=== PATIENT | male | born 1955 | race Caucasian/White ===

== ENCOUNTER 2017-11-28 10:40 | Emergency (ER) | payer OTHER, SELFPAY ==
[2017-11-28 10:41] VITALS: BP 156/88; PULSE 88; RESP 16; TEMP 36.5; O2SAT 99; BMI 35.2
--- NOTE | 2017-11-28 10:54 | RAD_ITS ---
STUDY: X-RAY LEFT FOOT, FIRST TOE REASON FOR EXAM: Male, 62 years old. Infection big toe 2 days TECHNIQUE: 3 view(s) of the toe were obtained. COMPARISON: None. FINDINGS: There is a well-corticated but slightly irregular appearance of the distal metatarsal on the medial side. There is minimal arthrosis of the metatarsophalangeal (M.T.P.) joint. Normal interphalangeal joints. Normal phalanges and interphalangeal joints. There is soft tissue swelling about the first digit. RAD/Toe(s) Min 2 Views IMPRESSION: Degenerative appearance of the distal metatarsal on the medial side on the oblique view. Mild soft tissue swelling no definitive evidence of obvious gas formation in the toe. No visualized bony erosion within the distal phalanges. It should be noted that it may take 10-14 days for radiographic bony manifestation of osteomyelitis to be seen. Electronically Signed: Adelaide Kate MD at 11:28 EDT Tel , Service support ,
[2017-11-28] MEDS: Smz/Tmp Ds Tablet 2 TABLET PO (11:06)
[2017-11-28] MEDS: Cephalexin 250 MG Capsule 500 MG PO (11:06)
--- NOTE | 2017-11-28 11:17 | ED.VISSUMM ---
- ER Visit Summary Date of Service: 11/28/17 Chief Complaint: [Left great toe infection] History of Present Illness: The patient is a 62 M [presents the emergency department with complaint of redness, and swelling to his left great toe. Patient states that he thinks he overdid it working 2 days ago as he was working in the yard and cut down 3 trees. Patient started noticing discomfort to his left great toe and thought that it looked infected so he removed his toenail with some clippers that he dipped and peroxide. Patient states that he also had drank some [place] Mos[place]eda to help him tolerate the discomfort. Patient subsequently used a sewing needle to puncture areas in his toe where he thought there was pus and was able to express some purulent debris. Patient denies any fevers. Patient does see a shade hanger as he does have orthotics.] Physical Examination: [HEENT-PERRLA, EOMI. Cranial nerves II through XII grossly intact. TMs clear. Mucous membranes moist. No adenopathy. Cardiovascular-regular rate and rhythm without murmur or ectopy Lungs-clear to auscultation, chest wall stable without crepitus or subcu emphysema Abdomen-normoactive bowel sounds, soft, nontender, no rebound or rigidity, no peritoneal signs. Extremities-intact ?4, normal range of motion, normal pulses, atraumatic]. Left foot-patient has erythema to the left great toe diffusely. Patient has what appears to be a blood blister on the lateral aspect of the pulp of the digit where he had a small puncture were patient try to drain the fluid from this area and he states he only got some thick red drainage. Patient has some mild lymphangitic streaking to the dorsum of the first metatarsal area of the foot. Test Results: [X-rays of the left great toe obtained and there is no evidence for fracture or evidence for osteomyelitis. No gas noted in the soft tissues.] Emergency Department Course and Treatment: [Patient was given Keflex and Bactrim]. Adacel tetanus booster also given. Treatment Plan: [Patient will be started on Keflex and Bactrim and he did not anything for pain. Patient advised to follow-up with his shade hanger within the next 2-3 days for wound check. Disposition: [Discharged home in stable condition.] Impression: [Cellulitis left great toe/foot] This note was generated with Dragon dictation software. It may contain incorrect words, spelling, and punctuation that were not noted in review of the chart prior to signing ED Disposition - Plan for ED Patient: Chief Complaint: Lower Extremity Injury Referrals: Stephen Gomez DO [Primary Care Provider] -
--- NOTE | 2017-11-28 11:22 | ED.DCSUM_ITS ---
- ER Visit Summary Date of Service: 11/28/17 Chief Complaint: [Left great toe infection] History of Present Illness: The patient is a 62 M [presents the emergency department with complaint of redness, and swelling to his left great toe. Patient states that he thinks he overdid it working 2 days ago as he was working in the yard and cut down 3 trees. Patient started noticing discomfort to his left great toe and thought that it looked infected so he removed his toenail with some clippers that he dipped and peroxide. Patient states that he also had drank some [place] Mos[place]eda to help him tolerate the discomfort. Patient subsequently used a sewing needle to puncture areas in his toe where he thought there was pus and was able to express some purulent debris. Patient denies any fevers. Patient does see a insert operator as he does have orthotics.] Physical Examination: [HEENT-PERRLA, EOMI. Cranial nerves II through XII grossly intact. TMs clear. Mucous membranes moist. No adenopathy. Cardiovascular-regular rate and rhythm without murmur or ectopy Lungs-clear to auscultation, chest wall stable without crepitus or subcu emphysema Abdomen-normoactive bowel sounds, soft, nontender, no rebound or rigidity, no peritoneal signs. Extremities-intact ?4, normal range of motion, normal pulses, atraumatic]. Left foot-patient has erythema to the left great toe diffusely. Patient has what appears to be a blood blister on the lateral aspect of the pulp of the digit where he had a small puncture were patient try to drain the fluid from this area and he states he only got some thick red drainage. Patient has some mild lymphangitic streaking to the dorsum of the first metatarsal area of the foot. Test Results: [X-rays of the left great toe obtained and there is no evidence for fracture or evidence for osteomyelitis. No gas noted in the soft tissues.] Emergency Department Course and Treatment: [Patient was given Keflex and Bactrim ]. Adacel tetanus booster also given. Treatment Plan: [Patient will be started on Keflex and Bactrim and he did not anything for pain. Patient advised to follow-up with his insert operator within the next 2-3 days for wound check. Disposition: [Discharged home in stable condition.] Impression: [Cellulitis left great toe/foot] This note was generated with Dragon dictation software. It may contain incorrect words, spelling, and punctuation that were not noted in review of the chart prior to signing ED Disposition - Plan for ED Patient: Chief Complaint: Lower Extremity Injury Referrals: Stephen Gomez DO [Primary Care Provider] -
--- NOTE | 2017-11-28 11:22 | ED.DEP ---
ED Disposition - Plan for ED Patient: Chief Complaint: Lower Extremity Injury Instructions: ED Infec Skin Cellulitis Prescriptions: Cephalexin [Keflex] 500 mg PO Q6 #40 cap Smz/Tmp Ds [Bactrim Ds] 2 tab PO BID #28 tab Referrals: Stephen Gomez DO [Primary Care Provider] - Additional Instructions: See your Partner Integration Planner in 2-3 days for a wound check
[2017-11-28] MEDS: Diphth,Pertuss(Acell),Tet Vac 0.5 ML Vial IM (11:37)
== END 2017-11-28 11:54 | disposition home or self-care (01) ==
LOC: ED 11:07
PROVIDERS: Emergency Provider Emergency Medicine; Family Provider Preventive Medicine Occupational Medicine; PCP Preventive Medicine Occupational Medicine
DX: L03.032 Cellulitis of left toe (principal); Z23 Encounter for immunization
CPT/HCPCS: 73660; 90471; 90715; 99282

== ENCOUNTER 2018-04-22 22:40 | Emergency (ER) | payer OTHER, SELFPAY ==
[2018-04-22 22:41] VITALS: BP 128/74; PULSE 69; RESP 15; TEMP 37.1; BMI 35.2
--- NOTE | 2018-04-22 23:17 | ED.VISSUMM ---
- ER Visit Summary Date of Service: 04/22/18 Chief Complaint: [] Left foot and toe infection History of Present Illness: The patient is a 62 M resents with toe infection in the left. He stated he got an abrasion 6 days ago because his boots were too tight. He stated that this evening he noticed some redness on the top of his foot and in the toe. He had not had any prior. He has been using hydrogen peroxide. He ripped the superficial skin off the ulcer tonight and there was some mild clear drainage. Comes in for further evaluation. Does not have any significant pain. Physical Examination: [] Vital signs reviewed General: Well-nourished well-developed Head: Normocephalic atraumatic Eyes: Pupils equal round and reactive to light extraocular movements intact ENT: TMs clear no hemotympanum no trauma Neck: Nontender full range of motion Cardiovascular: Regular rate rhythm no murmurs normal S1-S2 Respiratory: No distress clear to auscultation bilaterally chest nontender Abdomen: Soft nontender nondistended normal bowel sounds no masses Back: Nontender no CVA tenderness Extremities: She has a 0.5 x 0.5 cm superficial ulceration/abrasion on his distal left toe on the top second. He has some mild erythema proximally and laterally of the toe. He has a cellulitic area over the third metatarsal only coming up to the proximal foot. There is no lymphangitic streaking up his leg. No significant tenderness. There is no fluid drainage as it is dry and hard Neuro alert oriented cranial nerves II through XII intact normal strength sensation reflexes Test Results: [] Emergency Department Course and Treatment: [] This time I think the patient has an infected superficial ulceration to his toe. I do not think there is bony involvement. Given Bactrim and Keflex. I do not think he needs IV antibiotics. Understands it could get slightly worse before better. I do not think he needs imaging. He will return if this worsens despite treatment he will use topical Neosporin and keep it clean and I do not feel it is deep or an osteomyelitis that would warrant imaging Treatment Plan: [] Disposition: [] Impression: [] Left toe cellulitis Left foot cellulitis Left toe superficial ulceration This note was generated with [email or web address] software. It may contain incorrect words, spelling, and punctuation that were not noted in review of the chart prior to signing ED Disposition - Plan for ED Patient: Chief Complaint: Lower Extremity Injury Referrals: Stephen Gomez DO [Primary Care Provider] -
--- NOTE | 2018-04-22 23:21 | ED.DEP ---
ED Disposition - Plan for ED Patient: Disposition: Home or Assisted Living Chief Complaint: Lower Extremity Injury Instructions: Discharge Instructions for Cellulitis Prescriptions: Cephalexin [Keflex] 500 mg PO Q6 #40 cap Smz/Tmp Ds [Bactrim Ds] 1 tab PO BID #20 tab Referrals: Stephen Gomez DO [Primary Care Provider] -
[2018-04-22] MEDS: Cephalexin 250 MG Capsule 500 MG PO (23:22)
[2018-04-22] MEDS: Smz/Tmp Ds Tablet 2 TABLET PO (23:22)
[2018-04-22 23:36] VITALS: RESP 20
== END 2018-04-22 23:37 | disposition home or self-care (01) ==
PROVIDERS: Emergency Provider Emergency Medicine; Family Provider Preventive Medicine Occupational Medicine; PCP Preventive Medicine Occupational Medicine
DX: L03.032 Cellulitis of left toe (principal); L03.116 Cellulitis of left lower limb; L97.529 Non-pressure chronic ulcer of other part of left foot with unspecified severity; E66.9 Obesity, unspecified
CPT/HCPCS: 99283

== ENCOUNTER 2018-07-22 09:24 | Outpatient (RCR) | payer OTHER, SELFPAY ==
[2018-07-22 09:50] VITALS: BP 145/86; PULSE 69; RESP 16; TEMP 36.6; BMI 36.6
--- NOTE | 2018-07-22 11:03 | PCM.WC.PN ---
(1) Superficial abrasion Status: Acute Current Visit: Yes Code(s): T14.8XXA - Other injury of unspecified body region, initial encounter (2) Neuropathy of both feet Status: Acute Current Visit: Yes Code(s): G57.93 - Unspecified mononeuropathy of bilateral lower limbs Type of Wound Chief Complaint: Follow-up on his abrasion to right second toe History of Wound: 62-year-old white male who apparently traumatized his right second toe with his steel toe work boot in March. Patient states it was much bigger and deeper and has seen a marketing ambassador a foot doctor and his family doctor. He has been using Silvadene cream on it. It is now a superficial opening almost like a skin tear. Patient also complains that he has no feeling in his feet he is a non-smoker he states in 1976 He Did Walk 1 mile in the last snowstorm and actually his eyelids had frozen shut when his car broke down. He feels he has had some rust bite to the feet and toes and his past. 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 Progress of Wound: Today the wound is very small and superficial. Should heal quickly. We will apply for vascular studies and he may need some EMG studies also. - Physical Exam Vital Signs Temp Pulse Resp BP 97.8 F 69 16 145/86 H 07/22/18 09:50 07/22/18 09:50 07/22/18 09:50 07/22/18 09:50 General: Oriented x3, Cooperative, Well developed HEENT: Atraumatic, PERRLA Oral: Moist Mucosa Neck: Supple, No JVD Lungs: Clear to auscultation, Normal air movement Cardiovascular: Regular rate, Regular Rhythm Abdomen: Bowel Sounds Present, Soft, Non Tender, No Hepato-splenomegaly Extremities: No clubbing, No edema Skin: No rashes, Ulcer/ Wound - Superficial wound on the right second toe dorsal Wound Measurements and Assessment WC - Nurse 1 - General Ulcer Measurement Start: 07/22/18 09:50 Freq: Status: Active Protocol: Activity Type Activity Date Activity User E-Sign Co-Sign Detail Recorded Client Recorded Date Recorded By Document 07/22/18 09:50 [id number] 07/22/18 09:59 07/22/18 09:50 Wound Center Nurse 1 [Ulcer Assessment] #1 LEFT 2ND TOE -Combined with other wound No -Current Size (cm) - Length 0.1 -Current Size (cm) - Width 0.1 -Current Size (cm) - Depth 0.1 -Total Square Cm 0.01 -Date of Last Picture (Recall this 07/22/18 field) -Photo Taken Yes -Epithelialization None Present -Tunneling No -Undermining/Tunneling No -Circular Undermining No -Necrosis Amt Large (67-100%) -Necrotic Tissue Type Eschar -Temperature (Rocio-wound Skin No Abnormality Appearance) (Pt Warm) -Tenderness on Palpation (Rocio-wound No Skin Appearance) -Ulcer Cleansing Rinsed/ Irrigated with Saline -Foul Odor after Cleansing No -Anesthetic Used 5% Lidocaine Gel [Edema Assessment] -Lower Limb Edema Present No -Right Calf (cm) 45 -Right Ankle (cm) 24 -Left Calf (cm) 45.5 -Left Ankle (cm) 23.5 WC - Nurse 2 - General Ulcer CM Notes Start: 07/22/18 09:50 Freq: Status: Active Protocol: Activity Type Activity Date Activity User E-Sign Co-Sign Detail Recorded Client Recorded Date Recorded By Document 07/22/18 10:10 MW [id number] 07/22/18 10:16 MW 07/22/18 10:10 Wound Center Nurse 2 [Procedure/Treatment] #1 LEFT 2ND TOE -Time 10:11 -Correct Patient Yes -Correct Side, Site, Position Yes -Correct Procedure Yes -Procedure Performed No -Post Debridement Size (cm) - Length 0.5 -Post Debridement Size (cm) - Width 0.3 -Post Debridement Size (cm) - Depth 0.1 -Total Square Cm 0.15 -Wound/Ulcer Outcome Not Healed [See Physician Procedure note for Specifics] Pain Scale: 0-10 Numeric [Pain] -Is Patient Pain Free? Yes Musculoskeletal: No Tenderness to Palpation of Joints or Extremities Lymphatic: No Cervical, Supraclavicular, or Inguinal Adenopathy Neurological: Cranial nerves II-XII grossly intact, Neuro grossly intact Psych/Mental Status: Normal Affect, Appropriate Debridement Note Post-Debridement Measurements/Treatment WC - Nurse 2 - General Ulcer CM Notes Start: 07/22/18 09:50 Freq: Status: Active Protocol: Activity Type Activity Date Activity User E-Sign Co-Sign Detail Recorded Client Recorded Date Recorded By Document 07/22/18 10:10 MW [id number] 07/22/18 10:16 MW 07/22/18 10:10 Wound Center Nurse 2 #1 LEFT 2ND TOE -Time 10:11 -Correct Patient Yes -Correct Side, Site, Position Yes -Correct Procedure Yes -Procedure Performed No -Post Debridement Size (cm) - Length 0.5 -Post Debridement Size (cm) - Width 0.3 -Post Debridement Size (cm) - Depth 0.1 -Total Square Cm 0.15 -Wound/Ulcer Outcome Not Healed Pain Scale: 0-10 Numeric Is Patient Pain Free? Yes Wound debrided: Right second toe Type of Debridement: Selective debridement Anesthesia Used: 5% Lidocaine Gel Depth: Down to and including healthy tissue Percentage of wound debrided: 100 Instrument Used: 3mm curette Tissue Removed: Fibrin Amount of bleeding with debridement: Mild Bleeding Controlled with: Pressure Patient tolerated procedure well Assessment/Plan Active Problems Superficial abrasion (Acute) Neuropathy of both feet (Acute) Assessment: Bilateral neuropathy to feet. Superficial abrasion to the right second toe. PAD. Edema feet Plan: Apply Adaptic to the right second toe cover with gauze. Obtain arterial brachial studies and venous studies. Follow-up in 3 weeks
--- NOTE | 2018-07-22 11:08 | PN.PCM_ITS ---
(1) Superficial abrasion Status: Acute Current Visit: Yes Code(s): T14.8XXA - Other injury of u nspecified body region, initial encounter (2) Neuropathy of both feet Status: Acute Current Visit: Yes Code(s): G57.93 - Unspecified mononeuropathy of bilateral lower limbs Type of Wound Chief Complaint: Follow-up on his abrasion to right second toe History of Wound: 62-year-old white male who apparently traumatized his right second toe with his steel toe work boot in March. Patient states it was much bigger and deeper and has seen a pilling machine operator a foot doctor and his family doctor. He has been using Silvadene cream on it. It is now a superficial opening almost like a skin tear. Patient also complains that he has no feeling in his feet he is a non-smoker he states in 1976 He Did Walk 1 mile in the last snowstorm and actually his eyelids had frozen shut when his car broke down. He feels he has had some rust bite to the feet and toes and his past. 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 Progress of Wound: Today the wound is very small and superficial. Should heal quickly. We will apply for vascular studies and he may need some EMG studies also. - Physical Exam Vital Signs Temp Pulse Resp BP 97.8 F 69 16 145/86 H 07/22/18 09:50 07/22/18 09:50 07/22/18 09:50 07/22/18 09:50 General: Oriented x3, Cooperative, Well developed HEENT: Atraumatic, PERRLA Oral: Moist Mucosa Neck: Supple, No JVD Lungs: Clear to auscultation, Normal air movement Cardiovascular: Regular rate, Regular Rhythm Abdomen: Bowel Sounds Present, Soft, Non Tender, No Hepato-splenomegaly Extremities: No clubbing, No edema Skin: No rashes, Ulcer/ Wound - Superficial wound on the right second toe dorsal Wound Measurements and Assessment WC - Nurse 1 - General Ulcer Measurement Start: 07/22/18 09:50 Freq: Status: Active Protocol: Activity Type Activity Date Activity User E-Sign Co-Sign Detail Recorded Client Recorded Date Recorded By Document 07/22/18 09:50 [id number] 07/22/18 09:59 07/22/18 09:50 Wound Center Nurse 1 [Ulcer Assessment] #1 LEFT 2ND TOE -Combined with other wound No -Current Size (cm) - Length 0.1 -Current Size (cm) - Width 0.1 -Current Size (cm) - Depth 0.1 -Total Square Cm 0.01 -Date of Last Picture (Recall this 07/22/18 field) -Photo Taken Yes -Epithelialization None Present -Tunneling No -Undermining/Tunneling No -Circular Undermining No -Necrosis Amt Large (67-100%) -Necrotic Tissue Type Eschar -Temperature (Rocio-wound Skin No Abnormality Appearance) (Pt Warm) -Tenderness on Palpation (Rocio-wound No Skin Appearance) -Ulcer Cleansing Rinsed/ Irrigated with Saline -Foul Odor after Cleansing No -Anesthetic Used 5% Lidocaine Gel [Edema Assessment] -Lower Limb Edema Present No -Right Calf (cm) 45 -Right Ankle (cm) 24 -Left Calf (cm) 45.5 -Left Ankle (cm) 23.5 WC - Nurse 2 - General Ulcer CM Notes Start: 07/22/18 09:50 Freq: Status: Active Protocol: Activity Type Activity Date Activity User E-Sign Co-Sign Detail Recorded Client Recorded Date Recorded By Document 07/22/18 10:10 MW [id number] 07/22/18 10:16 MW 07/22/18 10:10 Wound Center Nurse 2 [Procedure/Treatment] #1 LEFT 2ND TOE -Time 10:11 -Correct Patient Yes -Correct Side, Site, Position Yes -Correct Procedure Yes -Procedure Performed No -Post Debridement Size (cm) - Length 0.5 -Post Debridement Size (cm) - Width 0.3 -Post Debridement Size (cm) - Depth 0.1 -Total Square Cm 0.15 -Wound/Ulcer Outcome Not Healed [See Physician Procedure note for Specifics] Pain Scale: 0-10 Numeric [Pain] -Is Patient Pain Free? Yes Musculoskeletal: No Tenderness to Palpation of Joints or Extremities Lymphatic: No Cervical, Supraclavicular, or Inguinal Adenopathy Neurological: Cranial nerves II-XII grossly intact, Neuro grossly intact Psych/Mental Status: Normal Affect, Appropriate Debridement Note Post-Debridement Measurements/Treatment WC - Nurse 2 - General Ulcer CM Notes Start: 07/22/18 09:50 Freq: Status: Active Protocol: Activity Type Activity Date Activity User E-Sign Co-Sign Detail Recorded Client Recorded Date Recorded By Document 07/22/18 10:10 MW [id number] 07/22/18 10:16 MW 07/22/18 10:10 Wound Center Nurse 2 #1 LEFT 2ND TOE -Time 10:11 -Correct Patient Yes -Correct Side, Site, Position Yes -Correct Procedure Yes -Procedure Performed No -Post Debridement Size (cm) - Length 0.5 -Post Debridement Size (cm) - Width 0.3 -Post Debridement Size (cm) - Depth 0.1 -Total Square Cm 0.15 -Wound/Ulcer Outcome Not Healed Pain Scale: 0-10 Numeric Is Patient Pain Free? Yes Wound debrided: Right second toe Type of Debridement: Selective debridement Anesthesia Used: 5% Lidocaine Gel Depth: Down to and including healthy tissue Percentage of wound debrided: 100 Instrument Used: 3mm curette Tissue Removed: Fibrin Amount of bleeding with debridement: Mild Bleeding Controlled with: Pressure Patient tolerated procedure well Assessment/Plan Active Problems Superficial abrasion (Acute) Neuropathy of both feet (Acute) Assessment: Bilateral neuropathy to feet. Superficial abrasion to the right second toe. PAD. Edema feet Plan: Apply Adaptic to the right second toe cover with gauze. Obtain arterial brachial studies and venous studies. Follow-up in 3 weeks
[2018-07-22 12:06] LABS: Erythrocyte Sedimentation Rate 15 mm/hr (0-20)
[2018-07-22 12:11] LABS: Absolute Lymphocyte Count 1.23 X10^3/ul (0.83-4.51); Absolute Neutrophil Count 3.7 X10^3/uL (2.0-7.7); Basophil# 0.01 X10^3/uL; Basophil% 0.2 % (0-1); Eosinophil# 0.11 X10^3/uL; Hematocrit 45.8 % (40-54); Hemoglobin 15.6 g/dl (13.0-16.5); Lymphocyte # 1.23 X10^3/ul (4.0); Lymphocyte % 22.7 % (19-41); Mean Corp Hgb Conc 34.1 g/gl (32-36); Mean Corpuscular Hgb 31.6 pg (27.0-32.0); Mean Corpuscular Volume 92.7 fL (80-94); Mean Platelet Vol. 11.6 fl (6.2-12.0); Monocyte# 0.38 X10^3/uL; Neutrophil # 3.68 X10^3/uL (2.7-7.7); Neutrophil % 67.9 % (47-70); Platelet Count 216 K/mm3 (150-450); RBC Distribution Width CV 12.9 % (11.6-14.6); Red Blood Count 4.94 M/mm3 (4.6-6.2); White Blood Count 5.4 K/mm3 (4.4-11.0)
[2018-07-22 12:15] LABS: POSITIVE COUNT NO; POSITIVE DIFFERENTIAL NO; POSITIVE MORPHOLOGY NO
[2018-07-22 12:32] LABS: CRP < 2.90 mg/L (0.0-3.0); Prealbumin 22.5 mg/dL (20.0-40.0); Rheumatoid Factor < 10.0 IU/mL (<15); Thyroid Stim Hormone (TSH) 1.91 uIU/mL (0.358-3.74)
[2018-07-25 12:39] LABS: ANTINUCLEAR ANTIBODIES DIRECT Negative (Negative)
== END 2018-08-01 23:59 ==
LOC: WC 09:24
PROVIDERS: Family Provider Preventive Medicine Occupational Medicine; PCP Preventive Medicine Occupational Medicine; Visit Provider Nurse Practitioner
DX: S90.414A Abrasion, right lesser toe(s), initial encounter (principal); X58.XXXA Exposure to other specified factors, initial encounter; G57.93 Unspecified mononeuropathy of bilateral lower limbs; I73.9 Peripheral vascular disease, unspecified; R60.0 Localized edema
CPT/HCPCS: 84134; 84443; 85025; 85652; 86038; 86140; 86431; 99213; G0463

== ENCOUNTER 2018-08-05 07:51 | Outpatient (RCR) | payer OTHER, SELFPAY ==
[2018-08-02 01:37] VITALS: BP 145/86; PULSE 69; RESP 16; TEMP 36.6
--- NOTE | 2018-08-05 07:55 | VDLE_ITS ---
Reason For Study: PAD RIGHT LEFT CFV is compressible, spontaneous, phasic, CFV is compressible, spontaneous, phasic, competent and demonstrates normal competent, and demonstrates normal augmentation. augmentation. FV is compressible, spontaneous, phasic, FV is compressible, spontaneous, phasic, competent and demonstrates normal competent and demonstrates normal augmentation. augmentation. POP V is compressible, spontaneous, phasic, POP V is compressible, spontaneous, phasic, competent and demonstrates normal competent and demonstrates normal augmentation. augmentation. T/P Trunk is compressible. T/P Trunk is compressible. PTV is compressible. PTV is compressible. RT PerV is compressible. LT PerV is compressible. Rt GSV at SFJ is compressible and competent. Left GSV at SFJ is compressible and RT GSV above the knee is compressible and competent. competent. Left GSV above the knee is compressible and RT Accessory V above the knee are INCOMPETENT competent. for greater than .5 seconds. Left GSV below the knee si cmpressible and Rt GSV below the knee is INCOMPETENT for competent. greater than .5 seconds. Left SSV is compressible and competent. RT SSV is compressible and competent. Procedure Exam performed in department. A preliminary report was called and/or faxed to [facility]. Interpretation Summary Deep veins of the lower extremities are bilaterally patent and compressible segmentally. There is no evidence of deep vein thrombosis on either side. Valvular competence appears intact within the proximal deep venous systems bilaterally. The greater saphenous veins appear bilaterally patent and compressible segmentally. Sapheno-femoral junctions are bilaterally competent . The right greater saphenous vein appears competent above the knee. The right greater saphenous vein appears incompetent below the knee. The left greater saphenous vein appears segmentally competent. Small saphenous veins are patent and competent bilaterally. The right accessory saphenous vein is patent and incompetent. Ordering Physician: Radha Hollis Referring Physician: ROHITH DIAZ Performed By: Thais Cordon, KATELYN, RVT
--- NOTE | 2018-08-05 07:55 | ART_ITS ---
Reason For Study: PAD Procedure A bilateral lower extremity continuous wave Doppler with analog waveform analysis,segmental pressures,and ankle brachial indexes without exercise. Left Segmental Pressures Left brachial= 124mmHg. Left posterior tibial artery = 157mmHg. Left dorsalis pedis artery = 156mmHg. Left digit = 110 mmHg. The left posterior tibial artery waveforms are triphasic. The left dorsalis pedis waveforms are biphasic. Right Segmental Pressures Right brachial= 129mmHg. Right posterior tibial artery = 157mmHg. Right dorsalis pedis artery = 155mmHg. Right digit = 90 mmHg. The right dorsalis pedis waveforms are triphasic. The right posterior tibial artery waveforms are triphasic. Indices The right ankle brachial index by the dorsalis pedis is 1.2. The right ankle brachial index by the posterior tibial artery is 1.22. The right digital-brachial index is .7. The left ankle brachial index by the dorsalis pedis is 1.21. The left ankle brachial index by the posterior tibial artery is 1.22. The left digital-brachial index is .85. Interpretation Summary Triphasic waveforms are noted at ankle level on the right. Triphasic and biphasic waveforms are noted at ankle level on the left. Resting ankle-brachial indices appear bilaterally normal. Digital- brachial indices are normal bilaterally. There is no evidence of significant arterial occlusive disease on either side. Ordering Physician: Radha Hollis Referring Physician: REGINO DIAZ Performed By: JESSICA MONTGOMERY RDCS
[2018-08-05 09:44] VITALS: BP 131/77; PULSE 72; RESP 18; TEMP 37.1; O2SAT 97; BMI 36.6
--- NOTE | 2018-08-05 10:40 | PCM.WC.PN ---
(1) Neuropathy of both feet Status: Acute Current Visit: Yes Code(s): G57.93 - Unspecified mononeuropathy of bilateral lower limbs (2) Superficial abrasion Status: Acute Current Visit: Yes Code(s): T14.8XXA - Other injury of unspecified body region, initial encounter Type of Wound Chief Complaint: Follow-up on his abrasion to right second toe History of Wound: 62-year-old white male who apparently traumatized his right second toe with his steel toe work boot in March. Patient states it was much bigger and deeper and has seen a outer diameter technician a foot doctor and his family doctor. He has been using Silvadene cream on it. It is now a superficial opening almost like a skin tear. Patient also complains that he has no feeling in his feet he is a non-smoker he states in 1976 He Did Walk 1 mile in the last snowstorm and actually his eyelids had frozen shut when his car broke down. He feels he has had some rust bite to the feet and toes and his past. 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 Progress of Wound: Today the wound is healed discharge from the wound center . The lab work we obtained for autoimmune disorders is all negative and patient needs to buy extrawide shoes he might have to have them custom made and I think that his neuropathy and his toenail fungus and his calluses. - Physical Exam Vital Signs Temp Pulse Resp BP Pulse Ox 98.7 F 72 18 131/77 H 97 08/05/18 09:44 08/05/18 09:44 08/05/18 09:44 08/05/18 09:44 08/05/18 09:44 General: Oriented x3, Cooperative, Well developed HEENT: Atraumatic, PERRLA Oral: Moist Mucosa Neck: Supple, No JVD Lungs: Clear to auscultation, Normal air movement Cardiovascular: Regular rate, Regular Rhythm Abdomen: Bowel Sounds Present, Soft, Non Tender, No Hepato-splenomegaly Extremities: No clubbing, No edema Skin: Ulcer/ Wound - Left second toe ulcer Wound Measurements and Assessment WC - Nurse 1 - General Ulcer Measurement Start: 08/05/18 09:44 Freq: Status: Active Protocol: Activity Type Activity Date Activity User E-Sign Co-Sign Detail Recorded Client Recorded Date Recorded By Document 08/05/18 09:44 MT [id number] 08/05/18 09:46 MO 08/05/18 09:44 Wound Center Nurse 1 [Ulcer Assessment] #1 LEFT 2ND TOE -Current Size (cm) - Length 0.9 -Current Size (cm) - Width 0.6 -Current Size (cm) - Depth 0.1 -Total Square Cm 0.54 -Photo Taken No -Tunneling No -Undermining/Tunneling No -Circular Undermining No -Exudate Amt None Present (0 %) -Wound Margin Flat & Intact -Texture (Rocio-wound Skin Appearance) Assessed Callus -Moisture (Rocio-wound Skin Appearance Assessed ) -Color (Rocio-wound Skin Appearance) Assessed -Temperature (Rocio-wound Skin No Abnormality Appearance) (Pt Warm) -Tenderness on Palpation (Rocio-wound No Skin Appearance) -Ulcer Cleansing Wound Cleanser -Foul Odor after Cleansing No -Anesthetic Used 4% Lidocaine Solution [Edema Assessment] -Right Calf (cm) 45 -Right Ankle (cm) 23.3 WC - Nurse 2 - General Ulcer CM Notes Start: 08/05/18 09:44 Freq: Status: Active Protocol: Activity Type Activity Date Activity User E-Sign Co-Sign Detail Recorded Client Recorded Date Recorded By Document 08/05/18 09:47 MW [id number] 08/05/18 09:49 MW 08/05/18 09:47 Wound Center Nurse 2 [Procedure/Treatment] #1 LEFT 2ND TOE -Time 09:48 -Correct Patient Yes -Correct Side, Site, Position Yes -Correct Procedure Yes -Procedure Performed No -Post Debridement Size (cm) - Length 0 -Post Debridement Size (cm) - Width 0 -Post Debridement Size (cm) - Depth 0 -Total Square Cm 0 -Wound/Ulcer Outcome Healed- Epithelialized -Ulcer Cleansing Not Cleansed -Foul Odor after Cleansing No -Bleeding Controlled with NA -Offloading No [See Physician Procedure note for Specifics] Pain Scale: 0-10 Numeric [Pain] -Is Patient Pain Free? Yes Musculoskeletal: No Tenderness to Palpation of Joints or Extremities Lymphatic: No Cervical, Supraclavicular, or Inguinal Adenopathy Neurological: Cranial nerves II-XII grossly intact, Neuro grossly intact Psych/Mental Status: Normal Affect, Appropriate Debridement Note Post-Debridement Measurements/Treatment WC - Nurse 2 - General Ulcer CM Notes Start: 08/05/18 09:44 Freq: Status: Active Protocol: Activity Type Activity Date Activity User E-Sign Co-Sign Detail Recorded Client Recorded Date Recorded By Document 08/05/18 09:47 MW [id number] 08/05/18 09:49 MW 08/05/18 09:47 Wound Center Nurse 2 #1 LEFT 2ND TOE -Time 09:48 -Correct Patient Yes -Correct Side, Site, Position Yes -Correct Procedure Yes -Procedure Performed No -Post Debridement Size (cm) - Length 0 -Post Debridement Size (cm) - Width 0 -Post Debridement Size (cm) - Depth 0 -Total Square Cm 0 -Wound/Ulcer Outcome Healed- Epithelialized -Ulcer Cleansing Not Cleansed -Foul Odor after Cleansing No -Bleeding Controlled with NA -Offloading No Pain Scale: 0-10 Numeric Is Patient Pain Free? Yes No debridement was completed today Assessment/Plan Active Problems Superficial abrasion (Acute) Neuropathy of both feet (Acute) Assessment: Bilateral neuropathy to feet. Superficial abrasion to the right second toe resolved. PAD. Edema feet Plan: Discharge from the wound center follow-up as needed
== END 2018-09-01 23:59 ==
LOC: WC 07:51
PROVIDERS: Family Provider Preventive Medicine Occupational Medicine; PCP Preventive Medicine Occupational Medicine; Referring Provider Nurse Practitioner; Visit Provider Nurse Practitioner
DX: R60.0 Localized edema (principal); G57.93 Unspecified mononeuropathy of bilateral lower limbs; I73.9 Peripheral vascular disease, unspecified; Z09 Encounter for follow-up examination after completed treatment for conditions other than malignant neoplasm
CPT/HCPCS: 93923; 93970; 99212; G0463

== ENCOUNTER → 2019-06-15 10:43 | Outpatient (CLI) | payer OTHER, SELFPAY ==
--- NOTE | 2019-06-15 10:47 | ART_ITS ---
Reason For Study: PAD Procedure A bilateral lower extremity continuous wave Doppler with analog waveform analysis,segmental pressures,and ankle brachial indexes without exercise. Left Segmental Pressures Left brachial= 148mmHg. Left posterior tibial artery = 162mmHg. Left dorsalis pedis artery = 135mmHg. Left digit = 26 mmHg. The left dorsalis pedis waveforms are triphasic. The left posterior tibial artery waveforms are triphasic. Right Segmental Pressures Right brachial= 147mmHg. Right posterior tibial artery = 176mmHg. Right dorsalis pedis artery = 155mmHg. Right digit = 23 mmHg. The right dorsalis pedis waveforms are triphasic. The right posterior tibial artery waveforms are triphasic. Indices The right ankle brachial index by the dorsalis pedis is 1.05. The right ankle brachial index by the posterior tibial artery is 1.19. The right digital-brachial index is 0.16. The left ankle brachial index by the dorsalis pedis is 0.91. The left ankle brachial index by the posterior tibial artery is 1.09. The left digital-brachial index is 0.18. Interpretation Summary Resting ankle-brachial indices appear bilaterally normal. Abnormal digital brachial indices bilaterally consistent with distal small vessel disease or temperature effect. Clinical correlation would be appropriate. Ordering Physician: Diogenes Buck Referring Physician: Stephen Gomez Performed By: Teresa Cesar RVT
== END ==
PROVIDERS: Family Provider Preventive Medicine Occupational Medicine; PCP Preventive Medicine Occupational Medicine; Referring Provider Podiatrist Foot & Ankle Surgery; Visit Provider Podiatrist Foot & Ankle Surgery
DX: I73.9 Peripheral vascular disease, unspecified (principal)
CPT/HCPCS: 93923

== ENCOUNTER 2021-06-25 12:45 | Outpatient (RCR) | payer MEDICARE, BC, SELFPAY ==
[2021-06-25 13:12] VITALS: BP 140/75; PULSE 67; RESP 16; TEMP 36.1
--- NOTE | 2021-06-25 13:56 | HP.PCM_ITS ---
History of Present Illness Date of Service: 06/25/21 Chief Complaint: Right second toe ulcer History of Wound: 65-year-old male presents to the wound healing center for chronic toe ulcer with an onset of about 6 weeks ago he reports. He was previously seen by Dr. Hathaway in [place] who has been doing wound care. He applies antibiotic ointment. He wears boots that have more toe space. He does walk several miles while he has push mowing his yard and is very active with home repairs. He has ongoing cramping of his legs that is intermittent and occurs after several hours of activity. He does have rest paresthesias up to his ankle level. He does not have diabetes that he is aware of however he reports he has not been screened for many years. He had blood flow studies performed in 2019 and this is noted. He denies odor, redness, fever, chill, nausea, vomiting. Progress of Wound: Stable [facility] Home Medications cephalexin 500 mg PO Q6 #40 cap 11/28/17 [Rx Last Taken Unknown] sulfamethoxazole-trimethoprim 2 tab PO BID #28 tab 11/28/17 [Rx Last Taken Unknown] cephalexin 500 mg PO Q6 #40 cap 04/22/18 [Rx Last Taken Unknown] sulfamethoxazole-trimethoprim 1 tab PO BID #20 tab 04/22/18 [Rx Last Taken Unknown] Allergy/AdvReac Type Severity Reaction Status Date / Time No Known Allergies Allergy Verified 04/22/18 22:45 Social History Smoking Status: Never smoker ROS Constitutional Constitutional: Denies fatigue, fever(s) or lethargy Cardiovascular Cardiovascular: Reports cold extremities and edema; Denies dyspnea Respiratory/Chest Respiratory/Chest: Denies cough Gastrointestinal Gastrointestinal: Denies nausea or vomiting Musculoskeletal Musculoskeletal: Reports numbness Integumentary Integumentary: Reports wounds Neurologic Neurologic: Reports tingling Vital Signs Vital Signs Vital Signs: 06/25/21 13:12 Temperature 96.9 F L Temperature Source Temporal Pulse Rate 67 Respiratory Rate 16 Blood Pressure 140/75 H Blood Pressure Mean 96 Blood Pressure Source Monitor Blood Pressure Position Sitting Blood Pressure Location Right Arm Physical Exam Const alert and oriented x3 General Appearance: cooperative HEENT normocephalic Extremity Extremity Narrative: No calf tenderness Diminished pulses Muscle wasting noted General Extremity: edema and no tenderness to palpation of joints or extremities; Negative for cyanosis Skin Skin Narrative: no purulence, no streaking, no odor, no infection. Skin skin discontinuity to distal and medial right second toe with granulation tissue exposed. There is an opaque type appearance to all of the digits 1, 2, 3, 4, 5 bilateral that are cool to touch. His skin is atrophic and hairless. There are no other ulcers or interdigital maceration or purulence. There is no eschar. No bogginess or fluctuance on palpation. His skin is very dry. General Skin Exam: Negative for erythema Neuro Neuro Narrative: lack of normal epicritic sensation via light touch is consistent with neuropathy status Psych cooperative and affect normal Debridement Note Debridement Note Wound debrided: right second toe Wound Grade/Stage: Type of Debridement: Excisional debridement Anesthesia Used: 4% Lidocaine Solution Depth: in the subcutaneous layer Percentage of wound debrided: 100 Instrument Used: #15 blade Tissue Removed: fibrous, devitalized subcutaneous, biofilm, slough Severity: Fat Layer Exposed Amount of bleeding with debridement: Mild Bleeding Controlled with: Pressure Patient tolerated procedure: Patient tolerated procedure well Post-Debridement Measurements and Additional Note: Post-Debridement Measurements/Treatment - Nurse 1 - General Ulcer Assessment Start: 06/25/21 13:12 Freq: Status: Active Protocol: MATTHEW Activity Type Activity Date Activity User E-Sign Co-Sign Detail Recorded Client Recorded Date Recorded By Document 06/25/21 13:12 ML [id number] 06/25/21 13:26 ML 06/25/21 13:12 - Today's Visit Information Type of service Initial Visit Arrival Mode Ambulatory Patient Identification Verified (Name & Yes ) Patient Requires Transmission-Based No Precautions Safety Precautions NA Vital Signs Temperature (97.8 F-99.1 F) 96.9 F L Temperature Source Temporal Pulse Rate (60-100) 67 Pulse Location Monitor Respiratory Rate (12-18) 16 Respiratory rate source Observation Blood Pressure (90/60-120/80) 140/75 H Blood Pressure Mean 96 Source Monitor Position Sitting Blood Pressure Location Right Arm History Since Last Visit- (Skip if this is Patient's initial visit) Have you changed medications since your No last visit? Any new allergies or adverse reactions No Had a fall/change in ADL's that may No increase risk of falls Signs or symptoms of abuse and/or No neglect since last visit Have you been in the hospital since your No last visit? Has dressing in place as prescribed No Has compression in place as prescribed N/A Has offloadiing in place as prescribed N/A Experienced any changes in pain level or No management Left Footwear Regular Shoe Right Footwear Regular Shoe Pain Scale: 0-10 Numeric Is Patient Pain Free? Yes - Nurse 1 - General Ulcer Measurement Start: 06/25/21 13:12 Freq: Status: Active Protocol: Activity Type Activity Date Activity User E-Sign Co-Sign Detail Recorded Client Recorded Date Recorded By Document 06/25/21 13:27 ML [id number] 06/25/21 13:30 ML 06/25/21 13:27 Wound Center Nurse 1 #2 RIGHT SECOND TOE -Current Size (cm) - Length 2 -Current Size (cm) - Width 0.4 -Current Size (cm) - Depth 0.1 -Total Square Cm 0.8 -Exudate Amt Medium -Exudate Type Serosanguineous -Wound Margin Distinct, Outline Attached -Granulation Amt Medium (34-66%) -Slough/Fibrin Yes -Necrosis Amt Medium (34-66%) -Necrotic Tissue Type Adherent Slough -Texture (Rocio-wound Skin Appearance) Assessed -Moisture (Rocio-wound Skin Appearance) Dry/Scaly -Color (Rocio-wound Skin Appearance) Assessed -Temperature (Rocio-wound Skin No Abnormality Appearance) (Pt Warm) -Ulcer Cleansing Rinsed/ Irrigated with Saline -Foul Odor after Cleansing No -Anesthetic Used 5% Lidocaine Gel Right Calf (cm) 38 Right Ankle (cm) 25 Left Calf (cm) 36 Left Ankle (cm) 24 - Nurse 2 - General Ulcer CM Notes Start: 06/25/21 13:12 Freq: Status: Active Protocol: Activity Type Activity Date Activity User E-Sign Co-Sign Detail Recorded Client Recorded Date Recorded By Document 06/25/21 13:36 [id number] 06/25/21 13:44 06/25/21 13:36 Wound Center Nurse 2 #2 RIGHT SECOND TOE -Time 13:39 -Correct Patient Yes -Correct Side, Site, Position Yes -Correct Procedure Yes -Procedure Performed Yes -Type of Procedure Debridement -Clinical Debridement Subcutaneous -Tissue Removed Subcutaneous -Post Debridement (cm) - Length 0.7 -Post Debridement (cm) - Width 0.4 -Post Debridement (cm) - Depth 0.1 -Total Square (Post) (cm) 0.28 -Area of Debridement (cm) - Length 0.7 -Area of Debridement (cm) - Width 0.4 -Total Square (Area) (cm) 0.28 -Tunneling No -Undermining/Tunneling No -Circular Undermining No -Wound/Ulcer Outcome Not Healed -Ulcer Cleansing Rinsed/ Irrigated with Saline -Foul Odor after Cleansing No -Bioengineered Tissue No -Bleeding Controlled with Pressure -Offloading Yes -Type of Offloading Surgical Shoe -Treatment Response Procedure Tolerated Well -Debridement - Subq, 1st 20sq cm Yes Pain Scale: 0-10 Numeric Is Patient Pain Free? Yes Assessment/Plan Assessment/Plan (1) Non-pressure chronic ulcer of other part of right foot with fat layer exposed: CODE(S): L97.512 - Non-pressure chronic ulcer of other part of right foot with fat layer exposed (2) Other hereditary and idiopathic neuropathies: CODE(S): G60.8 - Other hereditary and idiopathic neuropathies (3) Type 2 diabetes mellitus with diabetic polyneuropathy: CODE(S): E11.42 - Type 2 diabetes mellitus with diabetic polyneuropathy (4) Other specified peripheral vascular diseases: CODE(S): I73.89 - Other specified peripheral vascular diseases (5) Venous insufficiency (chronic) (peripheral): CODE(S): I87.2 - Venous insufficiency (chronic) (peripheral) (6) Localized edema: CODE(S): R60.0 - Localized edema PLAN: I reviewed and discussed his case today. Debridement was performed today as noted in the clinical panel to all of the ulcer sites. The following work up and care recommendations were made: Dressing: Hydrogel and gauze Wash: Antibacterial soap and water Offload: Surgical shoe was dispensed and recommended today Vascular: Vascular studies from 2019 were reviewed with toe brachial indices of less than 0.2 bilateral. I recommend updating these even though he has palpable pulses today. Likely a vascular referral will additionally be needed. Edema: We will review vascular studies prior to recommending any compression therapy. He will be screened for venous insufficiency and a Doppler with reflux evaluation was ordered. Infection: He was reassured no local signs of infection are noted. To monitor. Pain: Not present today Host factors: He has neuropathy and he will be screened for diagnosis of diabetes. Diagnostic data: I recommend ordering labs including CBC, CMP, and hemoglobin A1c. Results are pending. Imaging: I ordered a right foot x-ray to screen for any underlying foreign bodies or foot deformities. The results are pending. He is at risk for limb loss and delayed healing given his clinical exam findings and potential comorbidities that are being worked up at this time. It is noted his primary care physician is Dr. Baer. He was advised to continue follow-up for his hypertension. Note: Nov[employer] speech recognition basketballs and footballs reverser software was used to create portions of this document. Sound-alike and misspelled words, as well as other basketballs and footballs reverser errors may be contained in the documentation. 31 minutes was spent on this encounter. This included face to face and non face to face care including preparing for the visit, reviewing the history, performing the exam, counseling and providing education to the patient, family, or caregiver, ordering medications/test/ procedures if indicated as documented, communicating with other healthcare providers, documenting information in the medical record, interpreting / sharing this information when indicated as documented, and care coordination. I answered all the patient's questions. To return to the wound healing center in 1 week or call sooner if the patient has any questions or concerns.
== END 2021-07-01 23:59 ==
LOC: WC 12:45
PROVIDERS: PCP Preventive Medicine Occupational Medicine; Visit Provider Podiatrist
DX: E11.621 Type 2 diabetes mellitus with foot ulcer (principal); L97.512 Non-pressure chronic ulcer of other part of right foot with fat layer exposed; E11.42 Type 2 diabetes mellitus with diabetic polyneuropathy; G60.8 Other hereditary and idiopathic neuropathies; I87.2 Venous insufficiency (chronic) (peripheral); R60.0 Localized edema
CPT/HCPCS: 11042; 99213; G0463

== ENCOUNTER → 2021-07-14 13:01 | Outpatient (CLI) | payer MEDICARE, BC, SELFPAY | PROVIDERS: PCP Preventive Medicine Occupational Medicine; Referring Provider Podiatrist; Visit Provider Podiatrist | DX: I73.89 Other specified peripheral vascular diseases (principal); I87.2 Venous insufficiency (chronic) (peripheral); R60.0 Localized edema ==

== ENCOUNTER 2021-07-30 09:15 | Outpatient (RCR) | payer MEDICARE, BC, SELFPAY ==
[2021-07-02 00:41] VITALS: BP 140/75; PULSE 67; RESP 16; TEMP 36.1
[2021-07-09 13:25] VITALS: BP 175/76; PULSE 97; RESP 18; TEMP 35.6
--- NOTE | 2021-07-09 14:22 | PCM.WC.PN ---
History of Present Illness Date of Service: 07/09/21 Chief Complaint: Right second toe ulcer History of Wound: 65-year-old male presents to the wound healing center for chronic toe ulcer. He was previously seen by Dr. Buck in [place] who has been doing wound care. He applies hydrogel twice daily. He wears boots that have more toe space. He rode his bike 7 miles to get here. He has ongoing cramping of his legs that is intermittent and occurs after several hours of activity. He does have rest paresthesias up to his ankle level. He does not have diabetes that he is aware of however he reports he has not been screened for many years. He had blood flow studies performed in 2019 and this is noted. He denies odor, redness, fever, chill, nausea, vomiting. Progress of Wound: Stable Objective Data Objective Data Vital Signs: Vital Signs Temp Pulse Resp BP 96.1 F L 97 18 175/76 H 07/09/21 13:25 07/09/21 13:25 07/09/21 13:25 07/09/21 13:25 Oxygen Delivery Method Room Air Physical Exam Const alert and oriented x3 General Appearance: cooperative HEENT normocephalic Extremity Extremity Narrative: No calf tenderness Diminished pulses Muscle wasting noted General Extremity: edema and no tenderness to palpation of joints or extremities; Negative for cyanosis Skin Skin Narrative: no purulence, no streaking, no odor, no infection. Skin discontinuity to distal and medial right second toe with granulation tissue exposed. There is an opaque type appearance to all of the digits 1, 2, 3, 4, 5 bilateral that are cool to touch. His skin is atrophic and hairless. There are no other ulcers or interdigital maceration or purulence. There is no eschar. No bogginess or fluctuance on palpation. His skin is very dry. General Skin Exam: Negative for erythema Neuro Neuro Narrative: lack of normal epicritic sensation via light touch is consistent with neuropathy status Psych cooperative and affect normal Debridement Note Debridement Note Wound debrided: distal right second toe Wound Grade/Stage: 1 Type of Debridement: Excisional debridement Anesthesia Used: 4% Lidocaine Solution Depth: in the subcutaneous layer Percentage of wound debrided: 100 Instrument Used: #15 blade Tissue Removed: fibrous, devitalized subcutaneous, biofilm, slough Severity: Fat Layer Exposed Amount of bleeding with debridement: Mild Bleeding Controlled with: Pressure Patient tolerated procedure: Patient tolerated procedure well Post-Debridement Measurements and Additional Note: Post-Debridement Measurements/Treatment - Nurse 1 - General Ulcer Assessment Start: 07/09/21 13:24 Freq: Status: Active Protocol: MATTHEW Activity Type Activity Date Activity User E-Sign Co-Sign Detail Recorded Client Recorded Date Recorded By Document 07/09/21 13:25 OH [id number] 07/09/21 13:27 OH 07/09/21 13:25 WC - Today's Visit Information Type of service Follow-up Visit (Physician/ACADEMIC DEPARTMENT CHAIR ) Arrival Mode Ambulatory Transfer Assistance None Patient Identification Verified (Name & Yes ) Patient Requires Transmission-Based No Precautions Vital Signs Temperature (97.8 F-99.1 F) 96.1 F L Temperature Source Temporal Pulse Rate (60-100) 97 Pulse Location Monitor Respiratory Rate (12-18) 18 Respiratory rate source Observation Oxygen Delivery Method Room Air Blood Pressure (90/60-120/80) 175/76 H Blood Pressure Mean (mm Hg) 109 Source Monitor Position Sitting Blood Pressure Location Left Arm History Since Last Visit- (Skip if this is Patient's initial visit) Have you changed medications since your No last visit? Any new allergies or adverse reactions No Had a fall/change in ADL's that may No increase risk of falls Signs or symptoms of abuse and/or No neglect since last visit Have you been in the hospital since your No last visit? Has dressing in place as prescribed No Has compression in place as prescribed N/A Has offloadiing in place as prescribed N/A Experienced any changes in pain level or No management Left Footwear Regular Shoe Right Footwear Regular Shoe Pain Scale: 0-10 Numeric Is Patient Pain Free? Yes - Nurse 1 - General Ulcer Measurement Start: 07/09/21 13:24 Freq: Status: Active Protocol: Activity Type Activity Date Activity User E-Sign Co-Sign Detail Recorded Client Recorded Date Recorded By Document 07/09/21 13:25 KARIN [id number] 07/09/21 13:27 KARIN 07/09/21 13:25 Wound Center Nurse 1 #2 RIGHT SECOND TOE -Combined with other wound No -Current Size (cm) - Length 0.1 -Current Size (cm) - Width 0.1 -Current Size (cm) - Depth 0.1 -Total Square Cm 0.01 -Photo Taken No -Tunneling No -Undermining/Tunneling No -Circular Undermining No -Exudate Amt None Present -Wound Margin Distinct, Outline Attached -Granulation Amt None Present (0 %) -Necrosis Amt Large (67-100%) -Necrotic Tissue Type Eschar -Texture (Rocio-wound Skin Appearance) Assessed, Scarring -Moisture (Rocio-wound Skin Appearance) Assessed -Color (Rocoi-wound Skin Appearance) Assessed -Temperature (Rocio-wound Skin No Abnormality Appearance) (Pt Warm) -Tenderness on Palpation (Rocio-wound No Skin Appearance) -Ulcer Cleansing Rinsed/ Irrigated with Saline -Foul Odor after Cleansing No -Anesthetic Used 5% Lidocaine Gel WC - Nurse 2 - General Ulcer CM Notes Start: 07/09/21 13:24 Freq: Status: Active Protocol: Activity Type Activity Date Activity User E-Sign Co-Sign Detail Recorded Client Recorded Date Recorded By Document 07/09/21 13:40 PATRICIA [id number] 07/09/21 13:44 PATRICIA 07/09/21 13:40 Wound Center Nurse 2 -Time 13:40 -Correct Patient Yes -Correct Side, Site, Position Yes -Correct Procedure Yes -Procedure Performed Yes -Type of Procedure Debridement -Clinical Debridement Subcutaneous -Tissue Removed Subcutaneous -Post Debridement (cm) - Length 0.6 -Post Debridement (cm) - Width 1.1 -Post Debridement (cm) - Depth 0.2 -Total Square (Post) (cm) 0.66 -Area of Debridement (cm) - Length 0.6 -Area of Debridement (cm) - Width 1.1 -Total Square (Area) (cm) 0.66 -Tunneling No -Undermining/Tunneling No -Circular Undermining No -Wound/Ulcer Outcome Not Healed -Ulcer Cleansing Rinsed/ Irrigated with Saline -Foul Odor after Cleansing No -Bioengineered Tissue No -Bleeding Controlled with Pressure -Offloading Yes -Type of Offloading Surgical Shoe -Debridement - Subq, 1st 20sq cm Yes Pain Scale: 0-10 Numeric Is Patient Pain Free? Yes WC - Nurse 3 - General Ulcer D/C NN Start: 07/09/21 13:24 Freq: Status: Active Protocol: Activity Type Activity Date Activity User E-Sign Co-Sign Detail Recorded Client Recorded Date Recorded By Document 07/09/21 13:50 DL [id number] 07/09/21 13:52 DL 07/09/21 13:50 Wound Care Nurse 3 #2 RIGHT SECOND TOE -Ulcer Cleansing Rinsed/ Irrigated with Saline -Foul Odor after Cleansing No -Other Dressing hydrogel -Primary Dressing Covered/Secured with Dry Gauze & Roll Gauze, Secured with Tape Treatment Response Procedure Tolerated Well Pain Scale: 0-10 Numeric Is Patient Pain Free? Yes WC - Visit Discharge Discharge Condition Stable Ambulatory Status Ambulatory Assessment/Plan Assessment/Plan (1) Non-pressure chronic ulcer of other part of right foot with fat layer exposed: CODE(S): L97.512 - Non-pressure chronic ulcer of other part of right foot with fat layer exposed (2) Other hereditary and idiopathic neuropathies: CODE(S): G60.8 - Other hereditary and idiopathic neuropathies (3) Type 2 diabetes mellitus with diabetic polyneuropathy: CODE(S): E11.42 - Type 2 diabetes mellitus with diabetic polyneuropathy (4) Other specified peripheral vascular diseases: CODE(S): I73.89 - Other specified peripheral vascular diseases (5) Venous insufficiency (chronic) (peripheral): CODE(S): I87.2 - Venous insufficiency (chronic) (peripheral) (6) Localized edema: CODE(S): R60.0 - Localized edema PLAN: I reviewed and discussed his case today. Debridement was performed today as noted in the clinical panel to all of the ulcer sites. The following work up and care recommendations were made: Dressing: Hydrogel and gauze once daily Wash: Antibacterial soap and water Offload: Surgical shoe was dispensed and recommended today Vascular: Vascular studies from 2019 were reviewed with toe brachial indices of less than 0.2 bilateral. I recommend updating these even though he has palpable pulses today. Likely a vascular referral will additionally be needed. To avoid riding bike outside in the cold to avoid cold injuries to the extremities. Edema: We will review vascular studies prior to recommending any compression therapy. He will be screened for venous insufficiency and a Doppler with reflux evaluation was ordered. He did not get this yet and was encouraged to do so. Infection: He was reassured no local signs of infection are noted. To monitor. Pain: Not present today Host factors: He has neuropathy and he will be screened for diagnosis of diabetes. Diagnostic data: I recommend ordering labs including CBC, CMP, and hemoglobin A1c. Results are pending. This was not completed yet and I encouraged him to get this done today. New orders were provided. Imaging: I ordered a right foot x-ray to screen for any underlying foreign bodies or foot deformities. The results are pending. He will not get this yet and was encouraged to do so. He is at risk for limb loss and delayed healing given his clinical exam findings and potential comorbidities that are being worked up at this time. It is noted his primary care physician is Dr. Baer. He was advised to continue follow-up for his hypertension. Note: [employer] speech recognition abrasive coating machine operator software was used to create portions of this document. Sound-alike and misspelled words, as well as other abrasive coating machine operator errors may be contained in the documentation. 12 minutes was spent on this encounter. This included face to face and non face to face care including preparing for the visit, reviewing the history, performing the exam, counseling and providing education to the patient, family, or caregiver, ordering medications/test/ procedures if indicated as documented, communicating with other healthcare providers, documenting information in the medical record, interpreting / sharing this information when indicated as documented, and care coordination. I answered all the patient's questions. To return to the wound healing center in 1 week or call sooner if the patient has any questions or concerns.
--- NOTE | 2021-07-09 16:26 | RAD_ITS ---
EXAM: XR RIGHT FOOT COMPLETE, 3 OR MORE VIEWS CLINICAL INDICATION: ULCER RIGHT SECOND TOE Technologist Notes ULCER ON RIGHT SECOND TOE FOR A MONTH TECHNIQUE: Frontal, lateral and oblique views of the right foot. This report was created using [employer] report Think2 technology. COMPARISON: None. FINDINGS: BONES/JOINTS: Soft tissue ulceration overlying the tuft of the second digit. No underlying osseous erosion. Findings suggest a soft tissue infectious process. There is a calcaneal spur. There is an enthesophyte involving the posterior superior calcaneus at the site of insertion of the Achilles tendon. No acute fracture. No subluxation. Normal alignment. Preservation of the joint space. No sclerotic or destructive changes observed. SOFT TISSUES: Unremarkable. No soft tissue swelling or gas. No radiopaque foreign body. RAD/Foot min 3 Views IMPRESSION: Soft tissue ulceration overlying the tuft of the second digit. No underlying osseous erosion. Findings suggest a soft tissue infectious process. Electronically Signed: Jarod Montero MD at 17:39 EST , Service support ,
--- NOTE | 2021-07-14 13:16 | ART_ITS ---
Reason For Study: PVD Procedure A bilateral lower extremity continuous wave Doppler with analog waveform analysis,segmental pressures,and ankle brachial indexes without exercise. Left Segmental Pressures Left brachial= 141mmHg. Left posterior tibial artery = 183mmHg. Left dorsalis pedis artery = 147mmHg. Left digit = 136 mmHg. The left dorsalis pedis waveforms are triphasic. The left posterior tibial artery waveforms are triphasic. Right Segmental Pressures Right brachial= 147mmHg. Right posterior tibial artery = 186mmHg. Right dorsalis pedis artery = 176mmHg. Right digit = 148 mmHg. The right dorsalis pedis waveforms are triphasic. The right posterior tibial artery waveforms are triphasic. Indices The right ankle brachial index by the dorsalis pedis is 1.20. The right ankle brachial index by the posterior tibial artery is 1.27. The right digital-brachial index is 1.01. The left ankle brachial index by the dorsalis pedis is 1.00. The left ankle brachial index by the posterior tibial artery is 1.24. The left digital-brachial index is 0.93. VL/Lower Ext Art Exam w/o Exercis Interpretation Summary Triphasic Doppler waveforms are noted at ankle level bilaterally. Pulse-volume recordings are diminished at digital level on the right, but satisfactory at all other levels bilaterally. Resting ankle-brachial indices are normal bilaterally. Digital-brachial indices are nor mal bilaterally. There is no evidence of significant arterial occlusive disease in the lower ext remities bilaterally. Ordering Physician: Clemencia Edwards Referring Physician: Stephen Gomez Performed By: Teresa Cesar RVT
--- NOTE | 2021-07-14 13:16 | VDLE_ITS ---
Reason For Study: Edema RIGHT LEFT CFV is compressible, spontaneous, phasic, CFV is compressible, spontaneous, phasic, competent and demonstrates normal competent, and demonstrates normal augmentation. augmentation. FV is compressible, spontaneous, phasic, FV is compressible, spontaneous, phasic, competent and demonstrates normal competent and demonstrates normal augmentation. augmentation. POP V is compressible, spontaneous, phasic, POP V is compressible, spontaneous, phasic, competent and demonstrates normal competent and demonstrates normal augmentation. augmentation. T/P Trunk is compressible. T/P Trunk is compressible. PTV is compressible. PTV is compressible. RT PerV is compressible. LT PerV is compressible. SFJ is competent and measures 1.01 x 1.04 cm. SFJ is competent and measures 0.99 x 1.04 cm. GSV proximal thigh measures 0.56 x 0.53 cm. GSV proximal thigh measures 0.47 x 0.46 cm. GSV at knee measures 0.48 x 0.49 cm. GSV at knee measures 0.21 x 0.20 cm. GSV INCOMPETENT throughout for greater than GSV is competent throughout. 0.5 seconds. ASV proximal calf is INCOMPETENT for greater SSV at junction is competent and measures than 0.5 seconds and measures 0.22 x 0.24 cm. 0.21 x 0.18 cm. SSV at junction is competent and measures Procedure 0.14 x 0.14 cm. This is a venous duplex using B-mode, color flow and spectral Doppler. Exam performed in department. A preliminary report was called and/or faxed to . VL/Venous Duplex US - Rodolfo Extrem Interpretation Summary Deep veins of the lower extremities are bilaterally patent and compressible seg mentally. There is no evidence of deep vein thrombosis on either side. Valvular competence appears in tact within the proximal deep venous systems bilaterally. The great saphenous veins appear bila terally patent and compressible segmentally. Sapheno-femoral junctions are bilaterally competent . The right great saphenous vein appears segmentally incompetent. The left great saphenous vein a ppears segmentally competent. Small saphenous veins are patent and competent bilaterally. The acce ssory saphenous vein in the left proximal calf is incompetent. Ordering Physician: Clemencia Edwards Referring Physician: Stephen Gomez Performed By: Teresa Cesar RVT
[2021-07-16 10:09] VITALS: BP 157/83; PULSE 70; RESP 20; TEMP 36.4
[2021-07-16 11:43] LABS: Absolute Lymphocyte Count 1.37 X10^3/uL (0.83-4.51); Absolute Neutrophil Count 3.3 X10^3/uL (2.0-7.7); Basophil# 0.02 X10^3/uL; Basophil% 0.4 % (0-1); Eosinophil# 0.12 X10^3/uL; Eosinophils% 2.3 % (0-5); Hematocrit 44.5 % (40-54); Hemoglobin 14.8 g/dL (13.0-16.5); Lymphocyte # 1.37 X10^3/ul (0.83-4.51); Lymphocyte % 26.4 % (19-41); Mean Corp Hgb Conc 33.3 g/dL (32-36); Mean Corpuscular Hgb 31.2 pg (27.0-32.0); Mean Corpuscular Volume 93.7 fL (80-94); Mean Platelet Vol. 10.2 fl (6.2-12.0); Monocyte# 0.38 X10^3/uL; Monocyte% 7.3 % (0-10); NRBC Flagged by Analyzer 0 % (0-5); Neutrophil # 3.29 X10^3/uL (2.7-7.7); Neutrophil % 63.4 % (47-70); Platelet Count 215 K/mm3 (150-450); RBC Distribution Width CV 12.5 % (11.6-14.6); RBC Distribution Width SD 43.3 fl (35.1-43.9); Red Blood Count 4.75 M/mm3 (4.6-6.2); White Blood Count 5.2 K/mm3 (4.4-11.0)
[2021-07-16 12:04] LABS: Hemoglobin A1c 5.4 % (3.8-5.6)
[2021-07-16 12:12] LABS: AST(SGOT) 24 U/L (15-37); Alanine Aminotransfer ALT/SGPT 44 U/L (16-61); Albumin, Serum 3.7 g/dL (3.2-5.0); Alkaline Phosphatase 80 U/L (45-117); Anion Gap 6 (5-15); BUN 15 mg/dL (7-18); BUN/Creat Ratio 18.5 RATIO (10-20); Calcium,Total 9.1 mg/dL (8.5-10.1); Chloride 109 mmol/L (98-107); Creatinine, Serum 0.81 mg/dL (0.70-1.30); EST Glomerular Filtration Rate 101 mL/min (>60); Est Glom Filt Rate - Afr Amer 123 mL/min (>60); Globulin 3.6 g/dL (2.2-4.2); Glucose 89 mg/dL (74-106); Protein, Total 7.3 g/dL (6.4-8.2); Sodium Level 140 mmol/L (136-145)
--- NOTE | 2021-07-16 12:53 | PCM.WC.PN ---
History of Present Illness Date of Service: 07/16/21 Chief Complaint: Right second toe ulcer History of Wound: 65-year-old male presents to the wound healing center for chronic toe ulcer. He was previously seen by Dr. Buck in [place] who has been doing wound care. He applies hydrogel daily. He wears boots that have more toe space. He usually rides his bike for transportation but reports he recently got a car. He does have rest paresthesias up to his ankle level. He does not have diabetes that he is aware of however he reports he has not been screened for many years. He denies odor, redness, fever, chill, nausea, vomiting. He obtained a surgical shoe however does not wear this when he is riding his bike outside. He had venous and arterial studies performed and would like to go over the results. He had a foot x-ray performed. He did not get his lab work done. Progress of Wound: improving right second toe New left hallux Objective Data Objective Data Vital Signs: Vital Signs Temp Pulse Resp BP 97.5 F L 70 20 H 157/83 H 07/16/21 10:09 07/16/21 10:09 07/16/21 10:09 07/16/21 10:09 Oxygen Delivery Method Room Air Lab / Micro Data Result Diagrams: 07/16/21 11:08 07/16/21 11:08 Labs: Laboratory Results - last 24 hr 07/16/21 11:08: Sodium 140, Potassium 4.0, Chloride 109 H, Carbon Dioxide 25.0, Anion Gap 6, BUN 15, Creatinine 0.81, Est GFR (MDRD) Af Amer 123, Est GFR (MDRD) Non-Af 101, BUN/Creatinine Ratio 18.5, Glucose 89, Calcium 9.1, Total Bilirubin 0.50, AST 24, ALT 44, Alkaline Phosphatase 80, Total Protein 7.3, Albumin 3.7, Globulin 3.6, Albumin/Globulin Ratio 1.0 07/16/21 11:08: Hemoglobin A1c 5.4 07/16/21 11:08: WBC 5.2, RBC 4.75, Hgb 14.8, Hct 44.5, MCV 93.7, MCH 31.2, MCHC 33.3, RDW Std Deviation 43.3, RDW Coeff of Beatrice 12.5, Plt Count 215, MPV 10.2, Immature Gran % (Auto) 0.200, Neut % (Auto) 63.4, Lymph % (Auto) 26.4, Donley % (Auto) 7.3, Eos % (Auto) 2.3, Baso % (Auto) 0.4, Absolute Neuts (auto) 3.3, Absolute Lymphs (auto) 1.37, Nucleated RBC % 0 Physical Exam Extremity Extremity Narrative: No calf tenderness Diminished pulses Muscle wasting noted Skin Skin Narrative: no purulence, no streaking, no odor, no infection. Skin discontinuity to distal and medial right second toe with granulation tissue exposed; resolved dried hematogenous drainage/eschar. There is an opaque type appearance to all of the digits 1, 2, 3, 4, 5 bilateral that are cool to touch. His skin is atrophic and hairless. There are no interdigital maceration or purulence. There is no eschar. No bogginess or fluctuance on palpation. His skin is very dry. New skin discontinuity to plantar left hallux. Neuro Neuro Narrative: lack of normal epicritic sensation via light touch is consistent with neuropathy status Debridement Note Debridement Note Wound debrided: Right second toe and left hallux Wound Grade/Stage: Type of Debridement: Excisional debridement Anesthesia Used: 4% Lidocaine Solution Depth: in the subcutaneous layer Percentage of wound debrided: 100 Instrument Used: #15 blade Tissue Removed: fibrous, devitalized subcutaneous, biofilm, slough Severity: Fat Layer Exposed Amount of bleeding with debridement: Mild Bleeding Controlled with: Pressure Patient tolerated procedure: Patient tolerated procedure well Post-Debridement Measurements and Additional Note: Post-Debridement Measurements/Treatment - Nurse 1 - General Ulcer Assessment Start: 07/09/21 13:24 Freq: Status: Active Protocol: DON.MICHELLE Activity Type Activity Date Activity User E-Sign Co-Sign Detail Recorded Client Recorded Date Recorded By Document 07/09/21 13:25 AK [id number] 07/09/21 13:27 AK Document 07/16/21 10:09 DL [id number] 07/16/21 10:18 DL 07/09/21 07/16/21 13:25 10:09 - Today's Visit Information Type of service Follow-up Visit Follow-up Visit (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 (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 ) ) Arrival Mode Ambulatory Ambulatory Transfer Assistance None None Patient Identification Verified (Name & Yes Yes ) Patient Requires Transmission-Based No No Precautions Vital Signs Temperature (97.8 F-99.1 F) 96.1 F L 97.5 F L Temperature Source Temporal Temporal Pulse Rate (60-100) 97 70 Pulse Location Monitor Monitor Respiratory Rate (12-18) 18 20 H Respiratory rate source Observation Observation Oxygen Delivery Method Room Air Blood Pressure (90/60-120/80) 175/76 H 157/83 H Blood Pressure Mean (mm Hg) 109 107 Source Monitor Monitor Position Sitting Blood Pressure Location Left Arm History Since Last Visit- (Skip if this is Patient's initial visit) Have you changed medications since your No No last visit? Any new allergies or adverse reactions No No Had a fall/change in ADL's that may No No increase risk of falls Signs or symptoms of abuse and/or No No neglect since last visit Have you been in the hospital since your No No last visit? Has dressing in place as prescribed No Yes Has compression in place as prescribed N/A N/A Has offloadiing in place as prescribed N/A N/A Experienced any changes in pain level or No No management Left Footwear Regular Shoe Right Footwear Regular Shoe Pain Scale: 0-10 Numeric Is Patient Pain Free? Yes Yes WC - Nurse 1 - General Ulcer Measurement Start: 07/09/21 13:24 Freq: Status: Active Protocol: Activity Type Activity Date Activity User E-Sign Co-Sign Detail Recorded Client Recorded Date Recorded By Document 07/09/21 13:25 AK [id number] 07/09/21 13:27 AK Document 07/16/21 10:09 DL [id number] 07/16/21 10:18 DL 07/09/21 07/16/21 13:25 10:09 Wound Center Nurse 1 #2 RIGHT SECOND TOE -Combined with other wound No -Current Size (cm) - Length 0.1 0.8 -Current Size (cm) - Width 0.1 0.7 -Current Size (cm) - Depth 0.1 0.1 -Total Square Cm 0.01 0.56 -Photo Taken No No -Tunneling No -Undermining/Tunneling No -Circular Undermining No -Exudate Amt None Present None Present -Wound Margin Distinct, Thickened Outline Attached -Granulation Amt None Present (0 None Present (0 %) %) -Necrosis Amt Large (67-100%) Large (67-100%) -Necrotic Tissue Type Eschar Adherent Slough -Structure Exposed N/A -Texture (Rocio-wound Skin Appearance) Assessed, Callus Scarring -Moisture (Rocio-wound Skin Appearance) Assessed Dry/Scaly -Color (Rocio-wound Skin Appearance) Assessed No Abnormality -Temperature (Rocio-wound Skin No Abnormality No Abnormality Appearance) (Pt Warm) (Pt Warm) -Tenderness on Palpation (Rocio-wound No No Skin Appearance) -Ulcer Cleansing Rinsed/ Not Cleansed Irrigated with Saline -Foul Odor after Cleansing No No -Anesthetic Used 5% Lidocaine 5% Lidocaine Gel Gel WC - Nurse 2 - General Ulcer CM Notes Start: 07/09/21 13:24 Freq: Status: Active Protocol: Activity Type Activity Date Activity User E-Sign Co-Sign Detail Recorded Client Recorded Date Recorded By Document 07/09/21 13:40 [id number] 07/09/21 13:44 Document 07/16/21 10:31 [id number] 07/16/21 10:35 07/09/21 07/16/21 13:40 10:31 Wound Center Nurse 2 3-left hallux -Time 10:35 -Correct Patient Yes -Correct Side, Site, Position Yes -Correct Procedure Yes -Procedure Performed Yes -Type of Procedure Incision & Drainage -Clinical Debridement Subcutaneous -Tissue Removed Subcutaneous -Post Debridement (cm) - Length 0.4 -Post Debridement (cm) - Width 0.3 -Post Debridement (cm) - Depth 0.1 -Total Square (Post) (cm) 0.12 -Area of Debridement (cm) - Length 0.4 -Area of Debridement (cm) - Width 0.3 -Total Square (Area) (cm) 0.12 -Tunneling No -Undermining/Tunneling No -Circular Undermining No -Wound/Ulcer Outcome Not Healed -Ulcer Cleansing Rinsed/ Irrigated with Saline -Foul Odor after Cleansing No -Bioengineered Tissue No -Bleeding Controlled with Pressure -Offloading No -Treatment Response Procedure Tolerated Well -Debridement - Subq, 1st 20sq cm No #2 RIGHT SECOND TOE -Time 13:40 10:31 -Correct Patient Yes Yes -Correct Side, Site, Position Yes Yes -Correct Procedure Yes Yes -Procedure Performed Yes Yes -Type of Procedure Debridement Debridement -Clinical Debridement Subcutaneous Subcutaneous -Tissue Removed Subcutaneous Subcutaneous -Post Debridement (cm) - Length 0.6 0.1 -Post Debridement (cm) - Width 1.1 0.6 -Post Debridement (cm) - Depth 0.2 0.1 -Total Square (Post) (cm) 0.66 0.06 -Area of Debridement (cm) - Length 0.6 0.1 -Area of Debridement (cm) - Width 1.1 0.6 -Total Square (Area) (cm) 0.66 0.06 -Tunneling No No -Undermining/Tunneling No No -Circular Undermining No No -Wound/Ulcer Outcome Not Healed Not Healed -Ulcer Cleansing Rinsed/ Rinsed/ Irrigated with Irrigated with Saline Saline -Foul Odor after Cleansing No No -Bioengineered Tissue No No -Bleeding Controlled with Pressure Pressure -Offloading Yes No -Type of Offloading Surgical Shoe -Treatment Response Procedure Tolerated Well -Debridement - Subq, 1st 20sq cm Yes Yes Pain Scale: 0-10 Numeric Is Patient Pain Free? Yes Yes - Nurse 3 - General Ulcer D/C NN Start: 07/09/21 13:24 Freq: Status: Active Protocol: Activity Type Activity Date Activity User E-Sign Co-Sign Detail Recorded Client Recorded Date Recorded By Document 07/09/21 13:50 DL [id number] 07/09/21 13:52 DL Document 07/16/21 10:46 RB [id number] 07/16/21 10:47 RB 07/09/21 07/16/21 13:50 10:46 Wound Care Nurse 3 3-left hallux -Ulcer Cleansing Rinsed/ Irrigated with Saline -Primary Dressing Applied C Hydrogel ($) -Primary Dressing Covered/Secured with Dry Gauze, Secured with Tape #2 RIGHT SECOND TOE -Ulcer Cleansing Rinsed/ Irrigated with Saline -Foul Odor after Cleansing No -Other Dressing hydrogel hydrogel -Primary Dressing Covered/Secured with Dry Gauze & Dry Gauze, Roll Gauze, Secured with Secured with Tape Tape Treatment Response Procedure Procedure Tolerated Well Tolerated Well Pain Scale: 0-10 Numeric Is Patient Pain Free? Yes Yes - Visit Discharge Discharge Condition Stable Stable Ambulatory Status Ambulatory Ambulatory Transportation Private Auto Medication Reconcilliation completed & No provided to patient/care provider Clinical Summary of Care Provided Yes Assessment/Plan Assessment/Plan (1) Non-pressure chronic ulcer of other part of right foot with fat layer exposed: CODE(S): L97.512 - Non-pressure chronic ulcer of other part of right foot with fat layer exposed (2) Other hereditary and idiopathic neuropathies: CODE(S): G60.8 - Other hereditary and idiopathic neuropathies (3) Type 2 diabetes mellitus with diabetic polyneuropathy: CODE(S): E11.42 - Type 2 diabetes mellitus with diabetic polyneuropathy (4) Other specified peripheral vascular diseases: CODE(S): I73.89 - Other specified peripheral vascular diseases (5) Venous insufficiency (chronic) (peripheral): CODE(S): I87.2 - Venous insufficiency (chronic) (peripheral) (6) Localized edema: CODE(S): R60.0 - Localized edema PLAN: I reviewed and discussed his case today. Debridement was performed today as noted in the clinical panel to all of the ulcer sites. The following work up and care recommendations were made: Dressing: Hydrogel and gauze once daily. This also applies to his new ulcer site. Wash: Antibacterial soap and water Offload: Surgical shoe was dispensed last week and he was advised to wear this while inside. To wear protective shoes while outside. Vascular: His vascular studies do not demonstrate evidence of arterial occlusive disease. He has normal ABIs and triphasic waveforms and digital brachial indices. He does have a history of cold injury from the late 1970s and he may have had prior frostbite. This is consistent with his clinical findings and I recommend he avoids cold exposure. Edema: There is no DVT noted on his venous Doppler. He does not have venous insufficiency in the right lower extremity. He does have one vein that has venous insufficiency to the left. Is okay to wear an Jan wrap Infection: He was reassured no local signs of infection are noted. To monitor. Pain: Not present today Host factors: He has neuropathy and he will be screened for diagnosis of diabetes. Diagnostic data: I recommend ordering labs including CBC, CMP, and hemoglobin A1c. Results are pending. This was not completed yet and I encouraged him to get this done today. Imaging: His foot x-rays were reviewed without osseous destruction adjacent to the right second toe ulcer. There is no soft tissue emphysema foreign body or distinct vessel calcification seen. He is at risk for limb loss and delayed healing given his clinical exam findings and potential comorbidities that are being worked up at this time. It is noted his primary care physician is Dr. Baer. Note: [email or web address] speech recognition burr filer software was used to create portions of this document. Sound-alike and misspelled words, as well as other burr filer errors may be contained in the documentation. The medical decision making level is low. There is noted low risk of morbidity after considering this treatment plan and diagnostic data. The problems addressed require a low medical decision making level which includes two or more minor problems, a stable chronic illness, or an acute uncomplicated illness or injury. I answered all the patient's questions. To return to the wound healing center in 1 week or call sooner if the patient has any questions or concerns.
[2021-07-30 09:38] VITALS: BP 162/69; PULSE 63; TEMP 35.9
== END 2021-08-01 23:59 ==
LOC: WC 09:15
PROVIDERS: PCP Preventive Medicine Occupational Medicine; Referring Provider Podiatrist; Visit Provider Podiatrist
DX: E11.621 Type 2 diabetes mellitus with foot ulcer (principal); L97.512 Non-pressure chronic ulcer of other part of right foot with fat layer exposed; E11.51 Type 2 diabetes mellitus with diabetic peripheral angiopathy without gangrene; E11.42 Type 2 diabetes mellitus with diabetic polyneuropathy; G60.8 Other hereditary and idiopathic neuropathies; I87.2 Venous insufficiency (chronic) (peripheral); R60.0 Localized edema; R25.2 Cramp and spasm; Z79.899 Other long term (current) drug therapy
CPT/HCPCS: 11042; 36415; 73630; 80053; 83036; 85025; 93923; 93970; 99212; G0463

== ENCOUNTER 2021-08-27 10:15 | Outpatient (RCR) | payer MEDICARE, BC, SELFPAY ==
[2021-08-02 00:35] VITALS: BP 162/69; PULSE 63; RESP 20; TEMP 35.9
[2021-08-06 09:08] VITALS: BP 151/79; PULSE 75; RESP 18; TEMP 36.1
--- NOTE | 2021-08-06 22:34 | PN.PCM_ITS ---
History of Present Illness Date of Service: 08/06/21 Chief Complaint: Right second toe ulcer History of Wound: 65-year-old male presents to the wound healing center for chronic toe ulcer. He was previously seen by Dr. Buck in [place] who has been doing wound care. He applies hydrogel daily. He wears boots that have more toe space. He usually rides his bike for transportation but reports he recently got a car. He does have rest paresthesias up to his ankle level. He does not have diabetes that he is aware of however he reports he has not been screened for many years. He denies odor, redness, fever, chill, nausea, vomiting. He obtained a surgical shoe however does not wear this when he is riding his bike outside. He did got his lab work done. Progress of Wound: improving Objective Data Objective Data Vital Signs: Vital Signs Temp Pulse Resp BP 96.9 F L 75 18 151/79 H 08/06/21 09:08 08/06/21 09:08 08/06/21 09:08 08/06/21 09:08 Oxygen Delivery Method Room Air Physical Exam Extremity Extremity Narrative: No calf tenderness Diminished pulses Muscle wasting noted Skin Skin Narrative: no purulence, no streaking, no odor, no infection. Skin discontinuity to distal and medial right second toe with granulation tissue exposed; resolved dried hematogenous drainage/eschar. There is an opaque type appearance to all of the digits 1, 2, 3, 4, 5 bilateral that are cool to touch. His skin is atrophic and hairless. There are no interdigital maceration or purulence. There is no eschar. No bogginess or fluctuance on palpation. His skin is very dry. prior skin discontinuity to plantar left hallux healed and there is full epithelialization. Neuro Neuro Narrative: lack of normal epicritic sensation via light touch is consistent with neuropathy status Debridement Note Debridement Note Wound debrided: right second toe Wound Grade/Stage: Type of Debridement: Excisional debridement Anesthesia Used: 4% Lidocaine Solution Depth: in the subcutaneous layer Percentage of wound debrided: 100 Instrument Used: #15 blade Tissue Removed: fibrous, devitalized subcutaneous, biofilm, slough Severity: Fat Layer Exposed Amount of bleeding with debridement: Mild Bleeding Controlled with: Pressure Patient tolerated procedure: Patient tolerated procedure well Post-Debridement Measurements and Additional Note: Post-Debridement Measurement s/Treatment WC - Nurse 1 - General Ulcer Assessment Start: 08/06/21 09:08 Freq: Status: Active Protocol: MATTHEW Activity Type Activity Date Activity User E-Sign Co-Sign Detail Recorded Client Recorded Date Recorded By Document 08/06/21 09:08 [id number] 08/06/21 09:13 MW 08/06/21 09:08 WC - Today's Visit Information Type of service Follow-up Visit (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/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 [employer]LE [employer]IVING ) Arrival Mode Ambulatory Transfer Assistance None Accompanied by self Patient Identification Verified (Name & Yes ) Patient Requires Transmission-Based No Precautions Safety Precautions NA Vital Signs Temperature (97.8 F-99.1 F) 96.9 F L Temperature Source Temporal Pulse Rate (60-100) 75 Pulse Location Monitor Respiratory Rate (12-18) 18 Respiratory rate source Observation Oxygen Delivery Method Room Air Blood Pressure (90/60-120/80) 151/79 H Blood Pressure Mean (mm Hg) 103 Source Monitor Position Sitting Blood Pressure Location Left Arm History Since Last Visit- (Skip if this is Patient's initial visit) Have you changed medications since your No last visit? Any new allergies or adverse reactions No Had a fall/change in ADL's that may No increase risk of falls Signs or symptoms of abuse and/or No neglect since last visit Have you been in the hospital since your No last visit? Has dressing in place as prescribed Yes Has compression in place as prescribed N/A Has offloadiing in place as prescribed N/A Experienced any changes in pain level or No management Left Footwear Regular Shoe Right Footwear Regular Shoe Pain Scale: 0-10 Numeric Is Patient Pain Free? Yes - Nurse 1 - General Ulcer Measurement Start: 08/06/21 09:08 Freq: Status: Active Protocol: Activity Type Activity Date Activity User E-Sign Co-Sign Detail Recorded Client Recorded Date Recorded By Document 08/06/21 09:08 [id number] 08/06/21 09:13 MW 08/06/21 09:08 Wound Center Nurse 1 #2 RIGHT SECOND TOE -Combined with other wound No -Current Size (cm) - Length 0.1 -Current Size (cm) - Width 0.1 -Current Size (cm) - Depth 0.1 -Total Square Cm 0.01 -Photo Taken No -Epithelialization None Present -Tunneling No -Undermining/Tunneling No -Circular Undermining No -Granulation Amt None Present (0 %) -Granulation Quality N/A -Slough/Fibrin Yes -Necrotic Tissue Type Adherent Slough -Structure Exposed N/A -Texture (Rocio-wound Skin Appearance) Assessed,Callus ,Scarring -Color (Rocio-wound Skin Appearance) Assessed -Temperature (Rocio-wound Skin No Abnormality Appearance) (Pt Warm) -Tenderness on Palpation (Rocio-wound No Skin Appearance) -Ulcer Cleansing Rinsed/ Irrigated with Saline -Foul Odor after Cleansing No -Anesthetic Used 5% Lidocaine Gel WC - Nurse 2 - General Ulcer CM Notes Start: 08/06/21 09:08 Freq: Status: Active Protocol: Activity Type Activity Date Activity User E-Sign Co-Sign Detail Recorded Client Recorded Date Recorded By Document 08/06/21 09:40 PATRICIA [id number] 08/06/21 09:44 PATRICIA 08/06/21 09:40 Wound Center Nurse 2 3-left hallux -Correct Patient No -Correct Side, Site, Position No -Correct Procedure No -Procedure Performed No -Post Debridement (cm) - Length 0 -Post Debridement (cm) - Width 0 -Post Debridement (cm) - Depth 0 -Total Square (Post) (cm) 0 -Area of Debridement (cm) - Length 0 -Area of Debridement (cm) - Width 0 -Total Square (Area) (cm) 0 -Wound/Ulcer Outcome Healed- Epithelialized #2 RIGHT SECOND TOE -Time 09:42 -Correct Patient Yes -Correct Side, Site, Position Yes -Correct Procedure Yes -Procedure Performed Yes -Type of Procedure Debridement -Clinical Debridement Subcutaneous -Tissue Removed Subcutaneous -Post Debridement (cm) - Length 0.2 -Post Debridement (cm) - Width 0.4 -Post Debridement (cm) - Depth 0.1 -Total Square (Post) (cm) 0.08 -Area of Debridement (cm) - Length 0.2 -Area of Debridement (cm) - Width 0.4 -Total Square (Area) (cm) 0.08 -Tunneling No -Undermining/Tunneling No -Circular Undermining No -Wound/Ulcer Outcome Not Healed -Ulcer Cleansing Rinsed/ Irrigated with Saline -Foul Odor after Cleansing No -Bioengineered Tissue No -Bleeding Controlled with Pressure -Offloading Yes -Type of Offloading Surgical Shoe -Treatment Response Procedure Tolerated Well -Debridement - Subq, 1st 20sq cm Yes Pain Scale: 0-10 Numeric Is Patient Pain Free? Yes WC - Nurse 3 - General Ulcer D/C NN Start: 08/06/21 09:08 Freq: Status: Active Protocol: Activity Type Activity Date Activity User E-Sign Co-Sign Detail Recorded Client Recorded Date Recorded By Document 08/06/21 09:54 ID [id number] 08/06/21 09:55 ID 08/06/21 09:54 Wound Care Nurse 3 #2 RIGHT SECOND TOE -Ulcer Cleansing Rinsed/ Irrigated with Saline -Foul Odor after Cleansing No -Negative Pressure Wound Therapy N/A -Primary Dressing Applied C Hydrogel ($) Assessment/Plan Assessment/Plan (1) Non-pressure chronic ulcer of other part of right foot with fat layer exposed: CODE(S): L97.512 - Non-pressure chronic ulcer of other part of right foot with fat layer exposed (2) Other hereditary and idiopathic neuropathies: CODE(S): G60.8 - Other hereditary and idiopathic neuropathies (3) Type 2 diabetes mellitus with diabetic polyneuropathy: CODE(S): E11.42 - Type 2 diabetes mellitus with diabetic polyneuropathy (4) Other specified peripheral vascular diseases: CODE(S): I73.89 - Other specified peripheral vascular diseases (5) Venous insufficiency (chronic) (peripheral): CODE(S): I87.2 - Venous insufficiency (chronic) (peripheral) (6) Localized edema: CODE(S): R60.0 - Localized edema (7) Ulcer of left foot with fat layer exposed: CODE(S): L97.522 - Non-pressure chronic ulcer of other part of left foot w ith fat layer exposed PLAN: I reviewed and discussed his case today. Debridement was performed today as noted in the clinical panel to all of the ulcer sites. The following work up and care recommendations were made: Dressing: Hydrogel and gauze once daily. This also applies to his new ulcer site. Wash: Antibacterial soap and water Offload: Surgical shoe was dispensed last week and he was advised to wear this while inside. To wear protective shoes while outside. Vascular: His vascular studies do not demonstrate evidence of arterial occlusive disease. He has normal ABIs and triphasic waveforms and digital brachial indices. He does have a history of cold injury from the late 1970s and he may have had prior frostbite. This is consistent with his clinical findings and I recommend he avoids cold exposure. Edema: There is no DVT noted on his venous Doppler. He does not have venous insufficiency in the right lower extremity. He does have one vein that has venous insufficiency to the left. Is okay to wear an Jan wrap Infection: He was reassured no local signs of infection are noted. To monitor. Pain: Not present today Host factors: He has neuropathy and he will be screened for diagnosis of diabetes. Diagnostic data: I recommend ordering labs including CBC, CMP, and hemoglobin A1c. Labs from 07-16-2021 reviewed. He does not have leukocytosis or abnormal kidney function. He does not appear to have diabetes and his A1c was 5.4%. Imaging: His foot x-rays were reviewed without osseous destruction adjacent to the right second toe ulcer. There is no soft tissue emphysema foreign body or distinct vessel calcification seen. He is at risk for limb loss and delayed healing given his clinical exam findings and potential comorbidities that are being worked up at this time. It is noted his primary care physician is Dr. Baer. Note: [employer] speech recognition ob scrub tech software was used to create portions of this document. Sound-alike and misspelled words, as well as other ob scrub tech errors may be contained in the documentation. The medical decision making level is low. There is noted low risk of morbidity after considering this treatment plan and diagnostic data. The problems addressed require a low medical decision making level which includes two or more minor problems, a stable chronic illness, or an acute uncomplicated illness or injury. I answered all the patient's questions. To return to the wound healing center in 1 week or call sooner if the patient has any questions or concerns.
[2021-08-13 10:38] VITALS: BP 142/73; PULSE 73; RESP 20; TEMP 36.7
--- NOTE | 2021-08-13 12:23 | PN.PCM_ITS ---
History of Present Illness Date of Service: 08/13/21 Chief Complaint: Right second toe ulcer History of Wound: 65-year-old male presents to the wound healing center for chronic toe ulcer. He was previously seen by Dr. Buck in [place] who has been doing wound care. He applies hydrogel daily. He wears boots that have more toe space. He usually rides his bike for transportation but reports he recently got a car. He does have rest paresthesias up to his ankle level. He denies odor, redness, fever, chill, nausea, vomiting. He obtained a surgical shoe however does not wear this because it is cold outside. He denies known drainage. Progress of Wound: improving Objective Data Objective Data Vital Signs: Vital Signs Temp Pulse Resp BP 98.1 F 73 20 H 142/73 H 08/13/21 10:38 08/13/21 10:38 08/13/21 10:38 08/13/21 10:38 Oxygen Delivery Method Room Air Physical Exam Extremity Extremity Narrative: No calf tenderness Diminished pulses Muscle wasting noted Skin Skin Narrative: no purulence, no streaking, no odor, no infection. Skin discontinuity to distal and medial right second toe now healed with full epithelialization; resolved dried hematogenous drainage/eschar. There is an opaque type appearance to all of the digits 1, 2, 3, 4, 5 bilateral that are cool to touch. His skin is atrophic and hairless. There are no interdigital maceration or purulence. There is no eschar. No bogginess or fluctuance on palpation. His skin is very dry. prior skin discontinuity to plantar left hallux healed and there is full epithelialization. Prior blister site is now a full-thickness skin discontinuity with granular healthy bleeding base to the second toe with no deep tissue exposure, necrosis or infection. Neuro Neuro Narrative: lack of normal epicritic sensation via light touch is consistent with neuropathy status Debridement Note Debridement Note Wound debrided: Plantar right second toe Wound Grade/Stage: Type of Debridement: Excisional debridement Anesthesia Used: 4% Lidocaine Solution Depth: in the subcutaneous layer Percentage of wound debrided: 100 Instrument Used: #15 blade Tissue Removed: fibrous, devitalized subcutaneous, biofilm, slough Severity: Fat Layer Exposed Amount of bleeding with debridement: Mild Bleeding Controlled with: Pressure Patient tolerated procedure: Patient tolerated procedure well Post-Debridement Measurements and Additional Note: Post-Debridement Measurements/Treatment - Nurse 1 - General Ulcer Assessment Start: 08/06/21 09:08 Freq: Status: Active Protocol: MATTHEW Activity Type Activity Date Activity User E-Sign Co-Sign Detail Recorded Client Recorded Date Recorded By Document 08/06/21 09:08 MW [id number] 08/06/21 09:13 MW Document 08/13/21 10:38 DL [id number] 08/13/21 10:44 DL 08/06/21 08/13/21 09:08 10:38 WC - Today's Visit Information Type of service Follow-up Visit Follow-up Visit (Physician/ICEBOX MAN (Physician/ICEBOX MAN ) ) Arrival Mode Ambulatory Ambulatory Transfer Assistance None None Accompanied by self Patient Identification Verified (Name & Yes Yes ) Patient Requires Transmission-Based No No Precautions Safety Precautions NA Vital Signs Temperature (97.8 F-99.1 F) 96.9 F L 98.1 F Temperature Source Temporal Temporal Pulse Rate (60-100) 75 73 Pulse Location Monitor Monitor Respiratory Rate (12-18) 18 20 H Respiratory rate source Observation Observation Oxygen Delivery Method Room Air Blood Pressure (90/60-120/80) 151/79 H 142/73 H Blood Pressure Mean (mm Hg) 103 96 Source Monitor Monitor Position Sitting Blood Pressure Location Left Arm History Since Last Visit- (Skip if this is Patient's initial visit) Have you changed medications since your No No last visit? Any new allergies or adverse reactions No No Had a fall/change in ADL's that may No No increase risk of falls Signs or symptoms of abuse and/or No No neglect since last visit Have you been in the hospital since your No No last visit? Has dressing in place as prescribed Yes Yes Has compression in place as prescribed N/A N/A Has offloadiing in place as prescribed N/A Yes Experienced any changes in pain level or No No management Left Footwear Regular Shoe Regular Shoe Right Footwear Regular Shoe Regular Shoe Pain Scale: 0-10 Numeric Is Patient Pain Free? Yes Yes - Nurse 1 - General Ulcer Measurement Start: 08/06/21 09:08 Freq: Status: Active Protocol: Activity Type Activity Date Activity User E-Sign Co-Sign Detail Recorded Client Recorded Date Recorded By Document 08/06/21 09:08 MW [id number] 08/06/21 09:13 MW Document 08/13/21 10:38 DL [id number] 08/13/21 10:44 DL 08/06/21 08/13/21 09:08 10:38 Wound Center Nurse 1 #2 RIGHT SECOND TOE -Combined with other wound No -Current Size (cm) - Length 0.1 0.1 -Current Size (cm) - Width 0.1 0.1 -Current Size (cm) - Depth 0.1 0.1 -Total Square Cm 0.01 0.01 -Photo Taken No No -Epithelialization None Present -Tunneling No -Undermining/Tunneling No -Circular Undermining No -Exudate Amt None Present -Wound Margin Thickened -Granulation Amt None Present (0 Large (67-100%) %) -Granulation Quality N/A Pale -Slough/Fibrin Yes -Necrosis Amt None Present (0 %) -Necrotic Tissue Type Adherent Slough -Structure Exposed N/A N/A -Texture (Rocio-wound Skin Appearance) Assessed,Callus Callus ,Scarring -Moisture (Rocio-wound Skin Appearance) Dry/Scaly -Color (Rocio-wound Skin Appearance) Assessed No Abnormality -Temperature (Rocio-wound Skin No Abnormality No Abnormality Appearance) (Pt Warm) (Pt Warm) -Tenderness on Palpation (Rocio-wound No No Skin Appearance) -Ulcer Cleansing Rinsed/ Rinsed/ Irrigated with Irrigated with Saline Saline -Foul Odor after Cleansing No No -Anesthetic Used 5% Lidocaine 4% Lidocaine Gel Solution WC - Nurse 2 - General Ulcer CM Notes Start: 08/06/21 09:08 Freq: Status: Active Protocol: Activity Type Activity Date Activity User E-Sign Co-Sign Detail Recorded Client Recorded Date Recorded By Document 08/06/21 09:40 [id number] 08/06/21 09:44 Document 08/13/21 10:50 [id number] 08/13/21 10:56 08/06/21 08/13/21 09:40 10:50 Wound Center Nurse 2 4-right 2nd toe plantar -Time 10:54 -Correct Patient Yes -Correct Side, Site, Position Yes -Correct Procedure Yes -Procedure Performed Yes -Type of Procedure Debridement -Clinical Debridement Subcutaneous -Tissue Removed Subcutaneous -Post Debridement (cm) - Length 0.4 -Post Debridement (cm) - Width 0.6 -Post Debridement (cm) - Depth 0.1 -Total Square (Post) (cm) 0.24 -Area of Debridement (cm) - Length 0.4 -Area of Debridement (cm) - Width 0.6 -Total Square (Area) (cm) 0.24 -Tunneling No -Undermining/Tunneling No -Circular Undermining No -Wound/Ulcer Outcome Not Healed -Ulcer Cleansing Rinsed/ Irrigated with Saline -Foul Odor after Cleansing No -Bioengineered Tissue No -Bleeding Controlled with Pressure -Offloading Yes -Type of Offloading Surgical Shoe -Treatment Response Procedure Tolerated Well -Debridement - Subq, 1st 20sq cm Yes 3-left hallux -Correct Patient No -Correct Side, Site, Position No -Correct Procedure No -Procedure Performed No -Post Debridement (cm) - Length 0 -Post Debridement (cm) - Width 0 -Post Debridement (cm) - Depth 0 -Total Square (Post) (cm) 0 -Area of Debridement (cm) - Length 0 -Area of Debridement (cm) - Width 0 -Total Square (Area) (cm) 0 -Wound/Ulcer Outcome Healed- Epithelialized #2 RIGHT SECOND TOE -Time 09:42 -Correct Patient Yes No -Correct Side, Site, Position Yes No -Correct Procedure Yes No -Procedure Performed Yes No -Type of Procedure Debridement -Clinical Debridement Subcutaneous -Tissue Removed Subcutaneous -Post Debridement (cm) - Length 0.2 0 -Post Debridement (cm) - Width 0.4 0 -Post Debridement (cm) - Depth 0.1 0 -Total Square (Post) (cm) 0.08 0 -Area of Debridement (cm) - Length 0.2 0 -Area of Debridement (cm) - Width 0.4 0 -Total Square (Area) (cm) 0.08 0 -Tunneling No -Undermining/Tunneling No -Circular Undermining No -Wound/Ulcer Outcome Not Healed Healed- Epithelialized -Ulcer Cleansing Rinsed/ Irrigated with Saline -Foul Odor after Cleansing No -Bioengineered Tissue No -Bleeding Controlled with Pressure -Offloading Yes -Type of Offloading Surgical Shoe -Treatment Response Procedure Tolerated Well -Debridement - Subq, 1st 20sq cm Yes Pain Scale: 0-10 Numeric Is Patient Pain Free? Yes Yes WC - Nurse 3 - General Ulcer D/C NN Start: 08/06/21 09:08 Freq: Status: Active Protocol: Activity Type Activity Date Activity User E-Sign Co-Sign Detail Recorded Client Recorded Date Recorded By Document 08/06/21 09:54 AK [id number] 08/06/21 09:55 AK Document 08/13/21 11:04 RB [id number] 08/13/21 11:05 RB 08/06/21 08/13/21 09:54 11:04 Wound Care Nurse 3 4-right 2nd toe plantar -Ulcer Cleansing Rinsed/ Irrigated with Saline -Primary Dressing Applied C Hydrogel ($) -Primary Dressing Covered/Secured with Dry Gauze, Secured with Tape #2 RIGHT SECOND TOE -Ulcer Cleansing Rinsed/ Irrigated with Saline -Foul Odor after Cleansing No -Negative Pressure Wound Therapy N/A -Primary Dressing Applied C Hydrogel ($) Treatment Response Procedure Tolerated Well Pain Scale: 0-10 Numeric Is Patient Pain Free? Yes WC - Visit Discharge Discharge Condition Stable Ambulatory Status Ambulatory Transportation Private Auto Medication Reconcilliation completed & No provided to patient/care provider Clinical Summary of Care Provided Yes Assessment/Plan Assessment/Plan (1) Non-pressure chronic ulcer of other part of right foot with fat layer exposed: CODE(S): L97.512 - Non-pressure chronic ulcer of other part of right foot with fat layer exposed (2) Other hereditary and idiopathic neuropathies: CODE(S): G60.8 - Other hereditary and idiopathic neuropathies (3) Type 2 diabetes mellitus with diabetic polyneuropathy: CODE(S): E11.42 - Type 2 diabetes mellitus with diabetic polyneuropathy (4) Other specified peripheral vascular diseases: CODE(S): I73.89 - Other specified peripheral vascular diseases (5) Venous insufficiency (chronic) (peripheral): CODE(S): I87.2 - Venous insufficiency (chronic) (peripheral) (6) Localized edema: CODE(S): R60.0 - Localized edema (7) Ulcer of left foot with fat layer exposed: CODE(S): L97.522 - Non-pressure chronic ulcer of other part of left foot with fat layer exposed PLAN: I reviewed and discussed his case today. Debridement was performed today as noted in the clinical panel to all of the ulcer sites. The following work up and care recommendations were made: Dressing: Hydrogel and gauze once daily. This also applies to his new ulcer site. Wash: Antibacterial soap and water Offload: Surgical shoe was dispensed last week and he was advised to wear this while inside. To wear protective shoes while outside. Vascular: His vascular studies do not demonstrate evidence of arterial occlusive disease. He has normal ABIs and triphasic waveforms and digital brachial enoch karen. He does have a history of cold injury from the late 1970s and he may have had prior frostbite. This is consistent with his clinical findings and I recommend he avoids cold exposure. Edema: There is no DVT noted on his venous Doppler. He does not have venous insufficiency in the right lower extremity. He does have one vein that has venous insufficiency to the left. Is okay to wear an Jan wrap Infection: He was reassured no local signs of infection are noted. To monitor. Pain: Not present today Host factors: He has neuropathy and he will be screened for diagnosis of diabetes. Diagnostic data: I recommend ordering labs including CBC, CMP, and hemoglobin A1c. Labs from 07-16-2021 reviewed. He does not have leukocytosis or abnormal kidney function. He does not appear to have diabetes and his A1c was 5.4%. Imaging: His foot x-rays were reviewed without osseous destruction adjacent to the right second toe ulcer. There is no soft tissue emphysema foreign body or distinct vessel calcification seen. He is at risk for limb loss and delayed healing given his clinical exam findings and potential comorbidities that are being worked up at this time. It is noted his primary care physician is Dr. Baer. Note: [employer] speech recognition electronic bench technician software was used to create portions of this document. Sound-alike and misspelled words, as well as other electronic bench technician errors may be contained in the documentation. I answered all the patient's questions. To return to the wound healing center in 1 week or call sooner if the patient has any questions or concerns.
[2021-08-20 10:50] VITALS: BP 122/73; PULSE 60; RESP 18; TEMP 36.6
--- NOTE | 2021-08-20 15:41 | PN.PCM_ITS ---
History of Present Illness Date of Service: 08/20/21 Chief Complaint: Right second toe ulcer History of Wound: 65-year-old male presents to the wound healing center for chronic toe ulcer. He applies hydrogel daily. He wears boots that have more toe space. He usually rides his bike for transportation but reports he recently got a car. He does have rest paresthesias up to his ankle level. He denies odor, redness, fever, chill, nausea, vomiting. He denies known drainage. Progress of Wound: improving Objective Data Objective Data Vital Signs: Vital Signs Temp Pulse Resp BP 98 F 60 18 122/73 H 08/20/21 10:50 08/20/21 10:50 08/20/21 10:50 08/20/21 10:50 Oxygen Delivery Method Room Air Physical Exam Extremity Extremity Narrative: No calf tenderness Diminished pulses Muscle wasting noted Skin Skin Narrative: no purulence, no streaking, no odor, no infection. Skin discontinuity to plantar right second toe; reduced size with peripheral epithelialization. There is an opaque type appearance to all of the digits 1, 2, 3, 4, 5 bilateral that are cool to touch. His skin is atrophic and hairless. There are no interdigital maceration or purulence. There is no eschar. No bogginess or fluctuance on palpation. His skin is very dry. Granular base without deep tissue exposure, infection or necrosis Neuro Neuro Narrative: lack of normal epicritic sensation via light touch is consistent with neuropathy status Debridement Note Debridement Note Wound debrided: Plantar right second toe Wound Grade/Stage: Type of Debridement: Excisional debridement Anesthesia Used: 4% Lidocaine Solution Depth: in the subcutaneous layer Percentage of wound debrided: 100 Instrument Used: #15 blade Tissue Removed: fibrous, devitalized subcutaneous, biofilm, slough Severity: Fat Layer Exposed Amount of bleeding with debridement: Mild Bleeding Controlled with: Pressure Patient tolerated procedure: Patient tolerated procedure well Post-Debridement Measurements and Additional Note: Post-Debridement Measurements/Treatment DON - Nurse 1 - General Ulcer Assessment Start: 08/06/21 09:08 Freq: Status: Active Protocol: MATTHEW Activity Type Activity Date Activity User E-Sign Co-Sign Detail Recorded Client Recorded Date Recorded By Document 08/06/21 09:08 MW [id number] 08/06/21 09:13 MW Document 08/13/21 10:38 DL [id number] 08/13/21 10:44 DL Document 08/20/21 10:50 RB [id number] 08/20/21 10:51 RB 08/06/21 08/13/21 08/20/21 09:08 10:38 10:50 - Today's Visit Information Type of service Follow-up Visit Follow-up Visit Follow-up Visit (Physician/[facility] (Physician/[facility] (Physician/[facility] ) ) ) Arrival Mode Ambulatory Ambulatory Ambulatory Transfer Assistance None None None Accompanied by self Patient Identification Verified (Name & Yes Yes Yes ) Patient Requires Transmission-Based No No No Precautions Safety Precautions NA Vital Signs Temperature (97.8 F-99.1 F) 96.9 F L 98.1 F 98 F Temperature Source Temporal Temporal Temporal Pulse Rate (60-100) 75 73 60 Pulse Location Monitor Monitor Monitor Respiratory Rate (12-18) 18 20 H 18 Respiratory rate source Observation Observation Observation Oxygen Delivery Method Room Air Blood Pressure (90/60-120/80) 151/79 H 142/73 H 122/73 H Blood Pressure Mean (mm Hg) 103 96 89 Source Monitor Monitor Monitor Position Sitting Semi-Fowlers Blood Pressure Location Left Arm Left Arm History Since Last Visit- (Skip if this is Patient's initial visit) Have you changed medications since your No No No last visit? Any new allergies or adverse reactions No No No Had a fall/change in ADL's that may No No No increase risk of falls Signs or symptoms of abuse and/or No No No neglect since last visit Have you been in the hospital since your No No No last visit? Has dressing in place as prescribed Yes Yes Yes Has compression in place as prescribed N/A N/A No Has offloadiing in place as prescribed N/A Yes No Experienced any changes in pain level or No No No management Left Footwear Regular Shoe Regular Shoe Right Footwear Regular Shoe Regular Shoe Pain Scale: 0-10 Numeric Is Patient Pain Free? Yes Yes Yes - Nurse 1 - General Ulcer Measurement Start: 08/06/21 09:08 Freq: Status: Active Protocol: Activity Type Activity Date Activity User E-Sign Co-Sign Detail Recorded Client Recorded Date Recorded By Document 08/06/21 09:08 MW [id number] 08/06/21 09:13 MW Document 08/13/21 10:38 DL [id number] 08/13/21 10:44 DL Document 08/20/21 10:50 RB [id number] 08/20/21 10:51 RB 08/06/21 08/13/21 08/20/21 09:08 10:38 10:50 Wound Center Nurse 1 4-right 2nd toe plantar -Combined with other wound No -Current Size (cm) - Length 0.1 -Current Size (cm) - Width 0.1 -Current Size (cm) - Depth 0.1 -Total Square Cm 0.01 -Tunneling No -Undermining/Tunneling No -Circular Undermining No -Exudate Amt Small -Exudate Type Serosanguineous -Wound Margin Distinct, Outline Attached -Granulation Amt Medium (34-66%) -Granulation Quality [place] -Slough/Fibrin Yes -Necrosis Amt Medium (34-66%) -Necrotic Tissue Type Adherent Slough -Structure Exposed N/A -Texture (Rocio-wound Skin Appearance) Assessed -Moisture (Rocio-wound Skin Appearance) Dry/Scaly -Color (Rocio-wound Skin Appearance) Assessed -Temperature (Rocio-wound Skin No Abnormality Appearance) (Pt Warm) -Tenderness on Palpation (Rocio-wound No Skin Appearance) -Ulcer Cleansing Wound Cleanser -Foul Odor after Cleansing No -Anesthetic Used 5% Lidocaine Gel #2 RIGHT SECOND TOE -Combined with other wound No -Current Size (cm) - Length 0.1 0.1 -Current Size (cm) - Width 0.1 0.1 -Current Size (cm) - Depth 0.1 0.1 -Total Square Cm 0.01 0.01 -Photo Taken No No -Epithelialization None Present -Tunneling No -Undermining/Tunneling No -Circular Undermining No -Exudate Amt None Present -Wound Margin Thickened -Granulation Amt None Present (0 Large (67-100%) %) -Granulation Quality N/A Pale -Slough/Fibrin Yes -Necrosis Amt None Present (0 %) -Necrotic Tissue Type Adherent Slough -Structure Exposed N/A N/A -Texture (Rocio-wound Skin Appearance) Assessed,Callus Callus ,Scarring -Moisture (Rocio-wound Skin Appearance) Dry/Scaly -Color (Rocio-wound Skin Appearance) Assessed No Abnormality -Temperature (Rocio-wound Skin No Abnormality No Abnormality Appearance) (Pt Warm) (Pt Warm) -Tenderness on Palpation (Rocio-wound No No Skin Appearance) -Ulcer Cleansing Rinsed/ Rinsed/ Irrigated with Irrigated with Saline Saline -Foul Odor after Cleansing No No -Anesthetic Used 5% Lidocaine 4% Lidocaine Gel Solution WC - Nurse 2 - General Ulcer CM Notes Start: 08/06/21 09:08 Freq: Status: Active Protocol: Activity Type Activity Date Activity User E-Sign Co-Sign Detail Recorded Client Recorded Date Recorded By Document 08/06/21 09:40 [id number] 08/06/21 09:44 Document 08/13/21 10:50 [id number] 08/13/21 10:56 Document 08/20/21 10:55 [id number] 08/20/21 10:58 08/06/21 08/13/21 08/20/21 09:40 10:50 10:55 Wound Center Nurse 2 4-right 2nd toe plantar -Time 10:54 10:58 -Correct Patient Yes Yes -Correct Side, Site, Position Yes Yes -Correct Procedure Yes Yes -Procedure Performed Yes Yes -Type of Procedure Debridement Debridement -Clinical Debridement Subcutaneous Subcutaneous -Tissue Removed Subcutaneous Subcutaneous -Post Debridement (cm) - Length 0.4 0.3 -Post Debridement (cm) - Width 0.6 0.1 -Post Debridement (cm) - Depth 0.1 0.1 -Total Square (Post) (cm) 0.24 0.03 -Area of Debridement (cm) - Length 0.4 0.3 -Area of Debridement (cm) - Width 0.6 0.1 -Total Square (Area) (cm) 0.24 0.03 -Tunneling No No -Undermining/Tunneling No No -Circular Undermining No No -Wound/Ulcer Outcome Not Healed Not Healed -Ulcer Cleansing Rinsed/ Rinsed/ Irrigated with Irrigated with Saline Saline -Foul Odor after Cleansing No No -Bioengineered Tissue No No -Bleeding Controlled with Pressure Pressure -Offloading Yes No -Type of Offloading Surgical Shoe -Treatment Response Procedure Procedure Tolerated Well Tolerated Well -Debridement - Subq, 1st 20sq cm Yes Yes 3-left hallux -Correct Patient No -Correct Side, Site, Position No -Correct Procedure No -Procedure Performed No -Post Debridement (cm) - Length 0 -Post Debridement (cm) - Width 0 -Post Debridement (cm) - Depth 0 -Total Square (Post) (cm) 0 -Area of Debridement (cm) - Length 0 -Area of Debridement (cm) - Width 0 -Total Square (Area) (cm) 0 -Wound/Ulcer Outcome Healed- Epithelialized #2 RIGHT SECOND TOE -Time 09:42 -Correct Patient Yes No -Correct Side, Site, Position Yes No -Correct Procedure Yes No -Procedure Performed Yes No -Type of Procedure Debridement -Clinical Debridement Subcutaneous -Tissue Removed Subcutaneous -Post Debridement (cm) - Length 0.2 0 -Post Debridement (cm) - Width 0.4 0 -Post Debridement (cm) - Depth 0.1 0 -Total Square (Post) (cm) 0.08 0 -Area of Debridement (cm) - Length 0.2 0 -Area of Debridement (cm) - Width 0.4 0 -Total Square (Area) (cm) 0.08 0 -Tunneling No -Undermining/Tunneling No -Circular Undermining No -Wound/Ulcer Outcome Not Healed Healed- Epithelialized -Ulcer Cleansing Rinsed/ Irrigated with Saline -Foul Odor after Cleansing No -Bioengineered Tissue No -Bleeding Controlled with Pressure -Offloading Yes -Type of Offloading Surgical Shoe -Treatment Response Procedure Tolerated Well -Debridement - Subq, 1st 20sq cm Yes Pain Scale: 0-10 Numeric Is Patient Pain Free? Yes Yes Yes WC - Nurse 3 - General Ulcer D/C NN Start: 08/06/21 09:08 Freq: Status: Active Protocol: Activity Type Activity Date Activity User E-Sign Co-Sign Detail Recorded Client Recorded Date Recorded By Document 08/06/21 09:54 AK [id number] 08/06/21 09:55 AK Document 08/13/21 11:04 RB [id number] 08/13/21 11:05 RB Document 08/20/21 10:59 JF [id number] 08/20/21 11:00 JF 08/06/21 08/13/21 08/20/21 09:54 11:04 10:59 Wound Care Nurse 3 4-right 2nd toe plantar -Ulcer Cleansing Rinsed/ Rinsed/ Irrigated with Irrigated with Saline Saline -Foul Odor after Cleansing No -Primary Dressing Applied C Hydrogel ($) C Hydrogel ($) -Primary Dressing Covered/Secured with Dry Gauze, Dry Gauze, Secured with Secured with Tape Tape #2 RIGHT SECOND TOE -Ulcer Cleansing Rinsed/ Irrigated with Saline -Foul Odor after Cleansing No -Negative Pressure Wound Therapy N/A -Primary Dressing Applied C Hydrogel ($) Treatment Response Procedure Tolerated Well Pain Scale: 0-10 Numeric Is Patient Pain Free? Yes Yes WC - Visit Discharge Discharge Condition Stable Stable Ambulatory Status Ambulatory Ambulatory Transportation Private Auto Private Auto Medication Reconcilliation completed & No Yes provided to patient/care provider Clinical Summary of Care Provided Yes Yes Assessment/Plan Assessment/Plan (1) Non-pressure chronic ulcer of other part of right foot with fat layer exposed: CODE(S): L97.512 - Non-pressure chronic ulcer of other part of right foot with fat layer exposed (2) Other hereditary and idiopathic neuropathies: CODE(S): G60.8 - Other hereditary and idiopathic neuropathies (3) Type 2 diabetes mellitus with diabetic polyneuropathy: CODE(S): E11.42 - Type 2 diabetes mellitus with diabetic polyneuropathy (4) Other specified peripheral vascular diseases: CODE(S): I73.89 - Other specified peripheral vascular diseases (5) Venous insufficiency (chronic) (peripheral): CODE(S): I87.2 - Venous insufficiency (chronic) (peripheral) (6) Localized edema: CODE(S): R60.0 - Localized edema PLAN: I reviewed and discussed his case today. Debridement was performed today as noted in the clinical panel to all of the ulcer sites. The following work up and care recommendations were made: Dressing: Hydrogel and gauze once daily. Wash: Antibacterial soap and water Offload: Surgical shoe was dispensed previously, and he was advised to wear this while inside. To wear protective shoes while outside. Vascular: His vascular studies do not demonstrate evidence of arterial occlusive disease. He has normal ABIs and triphasic waveforms and digital brachial indices. He does have a history of cold injury from the late 1970s and he may have had prior frostbite. This is consistent with his clinical findings and I recommend he avoids cold exposure. Edema: There is no DVT noted on his venous Doppler. He does not have venous insufficiency in the right lower extremity. He does have one vein that has venous insufficiency to the left. Is okay to wear an Jan wrap Infection: He was reassured no local signs of infection are noted. To monitor. Pain: Not present today Host factors: He has neuropathy and he will be screened for diagnosis of diabetes. Diagnostic data: I recommend ordering labs including CBC, CMP, and hemoglobin A1c. Labs from 07-16-2021 reviewed. He does not have leukocytosis or abnormal kidney function. He does not appear to have diabetes and his A1c was 5.4%. Imaging: His foot x-rays were reviewed without osseous destruction adjacent to the right second toe ulcer. There is no soft tissue emphysema foreign body or distinct vessel calcification seen. He is at risk for limb loss and delayed healing given his clinical exam findings and potential comorbidities that are being worked up at this time. It is noted his primary care physician is Dr. Baer. Note: [employer] speech recognition tooth grinder software was used to create portions of this document. Sound-alike and misspelled words, as well as other tooth grinder errors may be contained in the documentation. I answered all the patient's questions. To return to the wound healing center in 1 week or call sooner if the patient has any questions or concerns.
[2021-08-27 10:18] VITALS: BP 161/79; PULSE 74; RESP 16; TEMP 35.7
--- NOTE | 2021-08-27 11:16 | PN.PCM_ITS ---
History of Present Illness Date of Service: 08/27/21 Chief Complaint: Right second toe ulcer History of Wound: 65-year-old male presents to the wound healing center for chronic toe ulcer. He applies hydrogel daily. He wears boots that have more toe space. He usually rides his bike for transportation but reports he recently got a car. He does have rest paresthesias up to his ankle level. He denies odor, redness, fever, chill, nausea, vomiting. He denies known drainage. Progress of Wound: stable Objective Data Objective Data Vital Signs: Vital Signs Temp Pulse Resp BP 96.3 F L 74 16 161/79 H 08/27/21 10:18 08/27/21 10:18 08/27/21 10:18 08/27/21 10:18 Oxygen Delivery Method Room Air Physical Exam Extremity Extremity Narrative: No calf tenderness Diminished pulses Muscle wasting noted Skin Skin Narrative: no purulence, no streaking, no odor, no infection. Skin discontinuity to plantar right second toe; reduced size with peripheral epithelialization. There is an opaque type appearance to all of the digits 1, 2, 3, 4, 5 bilateral that are cool to touch. His skin is atrophic and hairless. There are no interdigital maceration or purulence. There is no eschar. No bogginess or fluctuance on palpation. His skin is very dry. Granular base without deep tissue exposure, infection or necrosis Neuro Neuro Narrative: lack of normal epicritic sensation via light touch is consistent with neuropathy status Debridement Note Debridement Note Wound debrided: plantar right second toe Wound Grade/Stage: Type of Debridement: Excisional debridement Anesthesia Used: 4% Lidocaine Solution Depth: in the subcutaneous layer Percentage of wound debrided: 100 Instrument Used: #15 blade Tissue Removed: fibrous, devitalized subcutaneous, biofilm, slough Severity: Fat Layer Exposed Amount of bleeding with debridement: Mild Bleeding Controlled with: Pressure Patient tolerated procedure: Patient tolerated procedure well Post-Debridement Measurements and Additional Note: Post-Debridement Measurements/Treatment DON - Nurse 1 - General Ulcer Assessment Start: 08/06/21 09:08 Freq: Status: Active Protocol: MATTHEW Activity Type Activity Date Activity User E-Sign Co-Sign Detail Recorded Client Recorded Date Recorded By Document 08/06/21 09:08 MW [id number] 08/06/21 09:13 MW Document 08/13/21 10:38 DL [id number] 08/13/21 10:44 DL Document 08/20/21 10:50 RB [id number] 08/20/21 10:51 RB Document 08/27/21 10:18 BMF [id number] 08/27/21 10:22 BMF 08/06/21 08/13/21 08/20/21 09:08 10:38 10:50 WC - Today's Visit Information Type of service Follow-up Visit Follow-up Visit Follow-up Visit (Physician/DINKEY SKINNER (Physician/DINKEY SKINNER (Physician/DINKEY SKINNER ) ) ) Arrival Mode Ambulatory Ambulatory Ambulatory Transfer Assistance None None None Accompanied by self Patient Identification Verified (Name & Yes Yes Yes ) Patient Requires Transmission-Based No No No Precautions Safety Precautions NA Vital Signs Temperature (97.8 F-99.1 F) 96.9 F L 98.1 F 98 F Temperature Source Temporal Temporal Temporal Pulse Rate (60-100) 75 73 60 Pulse Location Monitor Monitor Monitor Respiratory Rate (12-18) 18 20 H 18 Respiratory rate source Observation Observation Observation Oxygen Delivery Method Room Air Blood Pressure (90/60-120/80) 151/79 H 142/73 H 122/73 H Blood Pressure Mean (mm Hg) 103 96 89 Source Monitor Monitor Monitor Position Sitting Semi-Fowlers Blood Pressure Location Left Arm Left Arm History Since Last Visit- (Skip if this is Patient's initial visit) Have you changed medications since your No No No last visit? Any new allergies or adverse reactions No No No Had a fall/change in ADL's that may No No No increase risk of falls Signs or symptoms of abuse and/or No No No neglect since last visit Have you been in the hospital since your No No No last visit? Has dressing in place as prescribed Yes Yes Yes Has compression in place as prescribed N/A N/A No Has offloadiing in place as prescribed N/A Yes No Experienced any changes in pain level or No No No management Left Footwear Regular Shoe Regular Shoe Right Footwear Regular Shoe Regular Shoe Pain Scale: 0-10 Numeric Is Patient Pain Free? Yes Yes Yes 08/27/21 10:18 WC - Today's Visit Information Type of service Follow-up Visit (Physician/DINKEY SKINNER ) Arrival Mode Ambulatory Transfer Assistance None Accompanied by Patient Identification Verified (Name & Yes ) Patient Requires Transmission-Based No Precautions Safety Precautions Vital Signs Temperature (97.8 F-99.1 F) 96.3 F L Temperature Source Temporal Pulse Rate (60-100) 74 Pulse Location Monitor Respiratory Rate (12-18) 16 Respiratory rate source Observation Oxygen Delivery Method Room Air Blood Pressure (90/60-120/80) 161/79 H Blood Pressure Mean (mm Hg) 106 Source Monitor Position Sitting Blood Pressure Location Left Arm History Since Last Visit- (Skip if this is Patient's initial visit) Have you changed medications since your No last visit? Any new allergies or adverse reactions No Had a fall/change in ADL's that may No increase risk of falls Signs or symptoms of abuse and/or No neglect since last visit Have you been in the hospital since your No last visit? Has dressing in place as prescribed Yes Has compression in place as prescribed N/A Has offloadiing in place as prescribed N/A Experienced any changes in pain level or No management Left Footwear Regular Shoe Right Footwear Regular Shoe Pain Scale: 0-10 Numeric Is Patient Pain Free? Yes WC - Nurse 1 - General Ulcer Measurement Start: 08/06/21 09:08 Freq: Status: Active Protocol: Activity Type Activity Date Activity User E-Sign Co-Sign Detail Recorded Client Recorded Date Recorded By Document 08/06/21 09:08 MW [id number] 08/06/21 09:13 MW Document 08/13/21 10:38 DL [id number] 08/13/21 10:44 DL Document 08/20/21 10:50 RB [id number] 08/20/21 10:51 RB Document 08/27/21 10:18 [facility] [id number] 08/27/21 10:22 BMF 08/06/21 08/13/21 08/20/21 09:08 10:38 10:50 Wound Center Nurse 1 4-right 2nd toe plantar -Combined with other wound No -Current Size (cm) - Length 0.1 -Current Size (cm) - Width 0.1 -Current Size (cm) - Depth 0.1 -Total Square Cm 0.01 -Photo Taken -Epithelialization -Tunneling No -Undermining/Tunneling No -Circular Undermining No -Exudate Amt Small -Exudate Type Serosanguineous -Wound Margin Distinct, Outline Attached -Granulation Amt Medium (34-66%) -Granulation Quality [place] -Slough/Fibrin Yes -Necrosis Amt Medium (34-66%) -Necrotic Tissue Type Adherent Slough -Structure Exposed N/A -Texture (Rocio-wound Skin Appearance) Assessed -Moisture (Rocio-wound Skin Appearance) Dry/Scaly -Color (Rocio-wound Skin Appearance) Assessed -Temperature (Rocio-wound Skin No Abnormality Appearance) (Pt Warm) -Tenderness on Palpation (Rocio-wound No Skin Appearance) -Ulcer Cleansing Wound Cleanser -Foul Odor after Cleansing No -Anesthetic Used 5% Lidocaine Gel #2 RIGHT SECOND TOE -Combined with other wound No -Current Size (cm) - Length 0.1 0.1 -Current Size (cm) - Width 0.1 0.1 -Current Size (cm) - Depth 0.1 0.1 -Total Square Cm 0.01 0.01 -Photo Taken No No -Epithelialization None Present -Tunneling No -Undermining/Tunneling No -Circular Undermining No -Exudate Amt None Present -Wound Margin Thickened -Granulation Amt None Present (0 Large (67-100%) %) -Granulation Quality N/A Pale -Slough/Fibrin Yes -Necrosis Amt None Present (0 %) -Necrotic Tissue Type Adherent Slough -Structure Exposed N/A N/A -Texture (Rocio-wound Skin Appearance) Assessed,Callus Callus ,Scarring -Moisture (Rocio-wound Skin Appearance) Dry/Scaly -Color (Rocio-wound Skin Appearance) Assessed No Abnormality -Temperature (Rocio-wound Skin No Abnormality No Abnormality Appearance) (Pt Warm) (Pt Warm) -Tenderness on Palpation (Rocio-wound No No Skin Appearance) -Ulcer Cleansing Rinsed/ Rinsed/ Irrigated with Irrigated with Saline Saline -Foul Odor after Cleansing No No -Anesthetic Used 5% Lidocaine 4% Lidocaine Gel Solution 08/27/21 10:18 Wound Center Nurse 1 4-right 2nd toe plantar -Combined with other wound No -Current Size (cm) - Length 0.4 -Current Size (cm) - Width 0.4 -Current Size (cm) - Depth 0.1 -Total Square Cm 0.16 -Photo Taken No -Epithelialization None Present -Tunneling No -Undermining/Tunneling No -Circular Undermining No -Exudate Amt Small -Exudate Type Serosanguineous -Wound Margin Distinct, Outline Attached -Granulation Amt Medium (34-66%) -Granulation Quality Red -Slough/Fibrin No -Necrosis Amt Medium (34-66%) -Necrotic Tissue Type Adherent Slough -Structure Exposed -Texture (Rocio-wound Skin Appearance) Assessed, Scarring -Moisture (Rocio-wound Skin Appearance) Assessed -Color (Rocio-wound Skin Appearance) Assessed -Temperature (Rocio-wound Skin No Abnormality Appearance) (Pt Warm) -Tenderness on Palpation (Rocio-wound No Skin Appearance) -Ulcer Cleansing Rinsed/ Irrigated with Saline -Foul Odor after Cleansing No -Anesthetic Used 4% Lidocaine Solution #2 RIGHT SECOND TOE -Combined with other wound -Current Size (cm) - Length -Current Size (cm) - Width -Current Size (cm) - Depth -Total Square Cm -Photo Taken -Epithelialization -Tunneling -Undermining/Tunneling -Circular Undermining -Exudate Amt -Wound Margin -Granulation Amt -Granulation Quality -Slough/Fibrin -Necrosis Amt -Necrotic Tissue Type -Structure Exposed -Texture (Rocio-wound Skin Appearance) -Moisture (Rocio-wound Skin Appearance) -Color (Rocio-wound Skin Appearance) -Temperature (Rocio-wound Skin Appearance) -Tenderness on Palpation (Rocio-wound Skin Appearance) -Ulcer Cleansing -Foul Odor after Cleansing -Anesthetic Used WC - Nurse 2 - General Ulcer CM Notes Start: 08/06/21 09:08 Freq: Status: Active Protocol: Activity Type Activity Date Activity User E-Sign Co-Sign Detail Recorded Client Recorded Date Recorded By Document 08/06/21 09:40 [id number] 08/06/21 09:44 Document 08/13/21 10:50 [id number] 08/13/21 10:56 Document 08/20/21 10:55 [id number] 08/20/21 10:58 Document 08/27/21 10:31 [id number] 08/27/21 10:32 JF Edit Result 08/27/21 10:31 PATRICIA (1) [id number] 08/27/21 10:33 JF (1) 4-right 2nd toe plantar - Post Debridement (cm) - Width 0.4 => 0.5 - Total Square (Post) (cm) 0.16 => 0.20 - Area of Debridement (cm) - Width 0.4 => 0.5 - Total Square (Area) (cm) 0.16 => 0.20 08/06/21 08/13/21 08/20/21 09:40 10:50 10:55 Wound Center Nurse 2 4-right 2nd toe plantar -Time 10:54 10:58 -Correct Patient Yes Yes -Correct Side, Site, Position Yes Yes -Correct Procedure Yes Yes -Procedure Performed Yes Yes -Type of Procedure Debridement Debridement -Clinical Debridement Subcutaneous Subcutaneous -Tissue Removed Subcutaneous Subcutaneous -Post Debridement (cm) - Length 0.4 0.3 -Post Debridement (cm) - Width 0.6 0.1 -Post Debridement (cm) - Depth 0.1 0.1 -Total Square (Post) (cm) 0.24 0.03 -Area of Debridement (cm) - Length 0.4 0.3 -Area of Debridement (cm) - Width 0.6 0.1 -Total Square (Area) (cm) 0.24 0.03 -Tunneling No No -Undermining/Tunneling No No -Circular Undermining No No -Wound/Ulcer Outcome Not Healed Not Healed -Ulcer Cleansing Rinsed/ Rinsed/ Irrigated with Irrigated with Saline Saline -Foul Odor after Cleansing No No -Bioengineered Tissue No No -Bleeding Controlled with Pressure Pressure -Offloading Yes No -Type of Offloading Surgical Shoe -Treatment Response Procedure Procedure Tolerated Well Tolerated Well -Debridement - Subq, 1st 20sq cm Yes Yes 3-left hallux -Correct Patient No -Correct Side, Site, Position No -Correct Procedure No -Procedure Performed No -Post Debridement (cm) - Length 0 -Post Debridement (cm) - Width 0 -Post Debridement (cm) - Depth 0 -Total Square (Post) (cm) 0 -Area of Debridement (cm) - Length 0 -Area of Debridement (cm) - Width 0 -Total Square (Area) (cm) 0 -Wound/Ulcer Outcome Healed- Epithelialized #2 RIGHT SECOND TOE -Time 09:42 -Correct Patient Yes No -Correct Side, Site, Position Yes No -Correct Procedure Yes No -Procedure Performed Yes No -Type of Procedure Debridement -Clinical Debridement Subcutaneous -Tissue Removed Subcutaneous -Post Debridement (cm) - Length 0.2 0 -Post Debridement (cm) - Width 0.4 0 -Post Debridement (cm) - Depth 0.1 0 -Total Square (Post) (cm) 0.08 0 -Area of Debridement (cm) - Length 0.2 0 -Area of Debridement (cm) - Width 0.4 0 -Total Square (Area) (cm) 0.08 0 -Tunneling No -Undermining/Tunneling No -Circular Undermining No -Wound/Ulcer Outcome Not Healed Healed- Epithelialized -Ulcer Cleansing Rinsed/ Irrigated with Saline -Foul Odor after Cleansing No -Bioengineered Tissue No -Bleeding Controlled with Pressure -Offloading Yes -Type of Offloading Surgical Shoe -Treatment Response Procedure Tolerated Well -Debridement - Subq, 1st 20sq cm Yes Pain Scale: 0-10 Numeric Is Patient Pain Free? Yes Yes Yes 08/27/21 10:31 Wound Center Nurse 2 4-right 2nd toe plantar -Time 10:31 -Correct Patient Yes -Correct Side, Site, Position Yes -Correct Procedure Yes -Procedure Performed Yes -Type of Procedure Debridement -Clinical Debridement Subcutaneous -Tissue Removed Subcutaneous -Post Debridement (cm) - Length 0.4 -Post Debridement (cm) - Width 0.5 -Post Debridement (cm) - Depth 0.1 -Total Square (Post) (cm) 0.20 -Area of Debridement (cm) - Length 0.4 -Area of Debridement (cm) - Width 0.5 -Total Square (Area) (cm) 0.20 -Tunneling No -Undermining/Tunneling No -Circular Undermining No -Wound/Ulcer Outcome Not Healed -Ulcer Cleansing Rinsed/ Irrigated with Saline -Foul Odor after Cleansing No -Bioengineered Tissue No -Bleeding Controlled with Pressure -Offloading No -Type of Offloading -Treatment Response Procedure Tolerated Well -Debridement - Subq, 1st 20sq cm Yes 3-left hallux -Correct Patient -Correct Side, Site, Position -Correct Procedure -Procedure Performed -Post Debridement (cm) - Length -Post Debridement (cm) - Width -Post Debridement (cm) - Depth -Total Square (Post) (cm) -Area of Debridement (cm) - Length -Area of Debridement (cm) - Width -Total Square (Area) (cm) -Wound/Ulcer Outcome #2 RIGHT SECOND TOE -Time -Correct Patient -Correct Side, Site, Position -Correct Procedure -Procedure Performed -Type of Procedure -Clinical Debridement -Tissue Removed -Post Debridement (cm) - Length -Post Debridement (cm) - Width -Post Debridement (cm) - Depth -Total Square (Post) (cm) -Area of Debridement (cm) - Length -Area of Debridement (cm) - Width -Total Square (Area) (cm) -Tunneling -Undermining/Tunneling -Circular Undermining -Wound/Ulcer Outcome -Ulcer Cleansing -Foul Odor after Cleansing -Bioengineered Tissue -Bleeding Controlled with -Offloading -Type of Offloading -Treatment Response -Debridement - Subq, 1st 20sq cm Pain Scale: 0-10 Numeric Is Patient Pain Free? Yes - Nurse 3 - General Ulcer D/C NN Start: 08/06/21 09:08 Freq: Status: Active Protocol: Activity Type Activity Date Activity User E-Sign Co-Sign Detail Recorded Client Recorded Date Recorded By Document 08/06/21 09:54 [place] [id number] 08/06/21 09:55 [place] Document 08/13/21 11:04 RB [id number] 08/13/21 11:05 RB Document 08/20/21 10:59 [id number] 08/20/21 11:00 Document 08/27/21 10:36 [id number] 08/27/21 10:36 08/06/21 08/13/21 08/20/21 09:54 11:04 10:59 Wound Care Nurse 3 4-right 2nd toe plantar -Ulcer Cleansing Rinsed/ Rinsed/ Irrigated with Irrigated with Saline Saline -Foul Odor after Cleansing No -Primary Dressing Applied C Hydrogel ($) C Hydrogel ($) -Primary Dressing Covered/Secured with Dry Gauze, Dry Gauze, Secured with Secured with Tape Tape #2 RIGHT SECOND TOE -Ulcer Cleansing Rinsed/ Irrigated with Saline -Foul Odor after Cleansing No -Negative Pressure Wound Therapy N/A -Primary Dressing Applied C Hydrogel ($) Treatment Response Procedure Tolerated Well Pain Scale: 0-10 Numeric Is Patient Pain Free? Yes Yes - Visit Discharge Discharge Condition Stable Stable Ambulatory Status Ambulatory Ambulatory Transportation Private Auto Private Auto Medication Reconcilliation completed & No Yes provided to patient/care provider Clinical Summary of Care Provided Yes Yes 08/27/21 10:36 Wound Care Nurse 3 4-right 2nd toe plantar -Ulcer Cleansing Rinsed/ Irrigated with Saline -Foul Odor after Cleansing No -Primary Dressing Applied C Hydrogel ($) -Primary Dressing Covered/Secured with Dry Gauze, Secured with Tape #2 RIGHT SECOND TOE -Ulcer Cleansing -Foul Odor after Cleansing -Negative Pressure Wound Therapy -Primary Dressing Applied Treatment Response Pain Scale: 0-10 Numeric Is Patient Pain Free? Yes WC - Visit Discharge Discharge Condition Stable Ambulatory Status Ambulatory Transportation Private Auto Medication Reconcilliation completed & Yes provided to patient/care provider Clinical Summary of Care Provided Yes Assessment/Plan Assessment/Plan (1) Non-pressure chronic ulcer of other part of right foot with fat layer exposed: CODE(S): L97.512 - Non-pressure chronic ulcer of other part of right foot with fat layer exposed (2) Other hereditary and idiopathic neuropathies: CODE(S): G60.8 - Other hereditary and idiopathic neuropathies (3) Type 2 diabetes mellitus with diabetic polyneuropathy: CODE(S): E11.42 - Type 2 diabetes mellitus with diabetic polyneuropathy (4) Other specified peripheral vascular diseases: CODE(S): I73.89 - Other specified peripheral vascular diseases (5) Venous insufficiency (chronic) (peripheral): CODE(S): I87.2 - Venous insufficiency (chronic) (peripheral) (6) Localized edema: CODE(S): R60.0 - Localized edema PLAN: I reviewed and discussed his case today. Debridement was performed today as noted in the clinical panel to all of the ulcer sites. The following work up and care recommendations were made: Dressing: Hydrogel and gauze once daily. Wash: Antibacterial soap and water Offload: Surgical shoe was dispensed previously, and he was advised to wear this while inside. To wear protective shoes while outside. Vascular: His vascular studies do not demonstrate evidence of arterial occlusive disease. He has normal ABIs and triphasic waveforms and digital brachial ind ices. He does have a history of cold injury from the late 1970s and he may have had prior frostbite. This is consistent with his clinical findings and I recommend he avoids cold exposure. Edema: There is no DVT noted on his venous Doppler. He does not have venous insufficiency in the right lower extremity. He does have one vein that has venous insufficiency to the left. Is okay to wear an Jan wrap Infection: He was reassured no local signs of infection are noted. To monitor. Pain: Not present today Host factors: He has neuropathy and he will be screened for diagnosis of diabetes. Diagnostic data: I recommend ordering labs including CBC, CMP, and hemoglobin A1c. Labs from 07-16-2021 reviewed. He does not have leukocytosis or abnormal kidney function. He does not appear to have diabetes and his A1c was 5.4%. Imaging: His foot x-rays were reviewed without osseous destruction adjacent to the right second toe ulcer. There is no soft tissue emphysema foreign body or distinct vessel calcification seen. He is at risk for limb loss and delayed healing given his clinical exam findings and potential comorbidities that are being worked up at this time. It is noted his primary care physician is Dr. Baer. Note: [employer] speech recognition fashion artist software was used to create portions of this document. Sound-alike and misspelled words, as well as other fashion artist errors may be contained in the documentation. I answered all the patient's questions. To return to the wound healing center in 1 week or call sooner if the patient has any questions or concerns.
== END 2021-09-01 23:59 ==
LOC: WC 10:15
PROVIDERS: PCP Preventive Medicine Occupational Medicine; Referring Provider Podiatrist; Visit Provider Podiatrist
DX: E11.621 Type 2 diabetes mellitus with foot ulcer (principal); L97.512 Non-pressure chronic ulcer of other part of right foot with fat layer exposed; I73.89 Other specified peripheral vascular diseases; G60.8 Other hereditary and idiopathic neuropathies; I87.2 Venous insufficiency (chronic) (peripheral); R60.0 Localized edema
CPT/HCPCS: 11042

== ENCOUNTER 2021-09-24 13:15 | Outpatient (RCR) | payer MEDICARE, BC, SELFPAY ==
[2021-09-02 00:42] VITALS: BP 161/79; PULSE 74; RESP 16; TEMP 35.7
[2021-09-09 13:31] VITALS: BP 137/50; PULSE 68; RESP 16; TEMP 36.5
--- NOTE | 2021-09-09 15:31 | PCM.WC.PN ---
History of Present Illness Date of Service: 09/09/21 Chief Complaint: Right second toe ulcer History of Wound: 65-year-old male presents to the wound healing center for chronic toe ulcer. He applies hydrogel daily. He wears boots that have more toe space. He does have rest paresthesias up to his ankle level. He denies odor, redness, fever, chill, nausea, vomiting. He denies known drainage. Progress of Wound: stable Objective Data Objective Data Vital Signs: Vital Signs Temp Pulse Resp BP 97.7 F L 68 16 137/50 H 09/09/21 13:31 09/09/21 13:31 09/09/21 13:31 09/09/21 13:31 Oxygen Delivery Method Room Air Physical Exam Extremity Extremity Narrative: No calf tenderness Diminished pulses Muscle wasting noted Skin Skin Narrative: no purulence, no streaking, no odor, no infection. Skin discontinuity to plantar right second toe; reduced size with peripheral epithelialization. There is an opaque type appearance to all of the digits 1, 2, 3, 4, 5 bilateral that are cool to touch. His skin is atrophic and hairless. There are no interdigital maceration or purulence. There is no eschar. No bogginess or fluctuance on palpation. His skin is very dry. Granular base without deep tissue exposure, infection or necrosis Neuro Neuro Narrative: lack of normal epicritic sensation via light touch is consistent with neuropathy status Debridement Note Debridement Note Wound debrided: plantar right second toe Wound Grade/Stage: Type of Debridement: Excisional debridement Anesthesia Used: 4% Lidocaine Solution Depth: in the subcutaneous layer Percentage of wound debrided: 100 Instrument Used: #15 blade Tissue Removed: fibrous, devitalized subcutaneous, biofilm, slough Severity: Fat Layer Exposed Amount of bleeding with debridement: Mild Bleeding Controlled with: Pressure Patient tolerated procedure: Patient tolerated procedure well Post-Debridement Measurements and Additional Note: Post-Debridement Measurements/Treatment DON - Nurse 1 - General Ulcer Assessment Start: 09/09/21 13:31 Freq: Status: Active Protocol: MATTHEW Activity Type Activity Date Activity User E-Sign Co-Sign Detail Recorded Client Recorded Date Recorded By Document 09/09/21 13:31 [id number] 09/09/21 13:34 MW 09/09/21 13:31 DON - Today's Visit Information Type of service Follow-up Visit (Physician/HAND PICKER ) Arrival Mode Ambulatory Transfer Assistance None Accompanied by SELF Patient Identification Verified (Name & Yes ) Patient Requires Transmission-Based No Precautions Safety Precautions NA Vital Signs Temperature (97.8 F-99.1 F) 97.7 F L Temperature Source Temporal Pulse Rate (60-100) 68 Pulse Location Monitor Respiratory Rate (12-18) 16 Respiratory rate source Observation Oxygen Delivery Method Room Air Blood Pressure (90/60-120/80) 137/50 H Blood Pressure Mean (mm Hg) 79 Source Monitor Position Sitting Blood Pressure Location Right Arm History Since Last Visit- (Skip if this is Patient's initial visit) Have you changed medications since your No last visit? Any new allergies or adverse reactions No Had a fall/change in ADL's that may No increase risk of falls Signs or symptoms of abuse and/or No neglect since last visit Have you been in the hospital since your No last visit? Has dressing in place as prescribed Yes Has compression in place as prescribed N/A Has offloadiing in place as prescribed N/A Experienced any changes in pain level or No management Left Footwear Regular Shoe Right Footwear Regular Shoe Pain Scale: 0-10 Numeric Is Patient Pain Free? Yes WC - Nurse 1 - General Ulcer Measurement Start: 09/09/21 13:31 Freq: Status: Active Protocol: Activity Type Activity Date Activity User E-Sign Co-Sign Detail Recorded Client Recorded Date Recorded By Document 09/09/21 13:31 MW [id number] 09/09/21 13:34 MW 09/09/21 13:31 Wound Center Nurse 1 4-right 2nd toe plantar -Combined with other wound No -Current Size (cm) - Length 0.5 -Current Size (cm) - Width 0.8 -Current Size (cm) - Depth 0.1 -Total Square Cm 0.40 -Photo Taken No -Epithelialization None Present -Tunneling No -Undermining/Tunneling No -Circular Undermining No -Exudate Amt Small -Exudate Type Serosanguineous -Wound Margin Flat & Intact -Granulation Amt None Present (0 %) -Granulation Quality N/A -Necrosis Amt Medium (34-66%) -Necrotic Tissue Type Adherent Slough -Structure Exposed N/A -Texture (Rocio-wound Skin Appearance) Assessed -Moisture (Rocio-wound Skin Appearance) Assessed,Dry/ Scaly -Color (Rocio-wound Skin Appearance) No Abnormality, Assessed -Temperature (Rocio-wound Skin No Abnormality Appearance) (Pt Warm) -Tenderness on Palpation (Rocio-wound No Skin Appearance) -Ulcer Cleansing Rinsed/ Irrigated with Saline -Foul Odor after Cleansing No -Anesthetic Used 4% Lidocaine Solution Lower Limb Edema Present No WC - Nurse 2 - General Ulcer CM Notes Start: 09/09/21 13:31 Freq: Status: Active Protocol: Activity Type Activity Date Activity User E-Sign Co-Sign Detail Recorded Client Recorded Date Recorded By Document 09/09/21 13:41 [id number] 09/09/21 13:43 JF 09/09/21 13:41 Wound Center Nurse 2 4-right 2nd toe plantar -Time 13:41 -Correct Patient Yes -Correct Side, Site, Position Yes -Correct Procedure Yes -Procedure Performed Yes -Type of Procedure Debridement -Clinical Debridement Subcutaneous -Tissue Removed Subcutaneous -Post Debridement (cm) - Length 0.6 -Post Debridement (cm) - Width 0.8 -Post Debridement (cm) - Depth 0.1 -Total Square (Post) (cm) 0.48 -Area of Debridement (cm) - Length 0.6 -Area of Debridement (cm) - Width 0.8 -Total Square (Area) (cm) 0.48 -Tunneling No -Undermining/Tunneling No -Circular Undermining No -Wound/Ulcer Outcome Not Healed -Ulcer Cleansing Rinsed/ Irrigated with Saline -Foul Odor after Cleansing No -Bioengineered Tissue No -Bleeding Controlled with Pressure -Offloading Yes -Type of Offloading Surgical Shoe -Treatment Response Procedure Tolerated Well -Debridement - Subq, 1st 20sq cm Yes Pain Scale: 0-10 Numeric Is Patient Pain Free? Yes WC - Nurse 3 - General Ulcer D/C NN Start: 09/09/21 13:31 Freq: Status: Active Protocol: Activity Type Activity Date Activity User E-Sign Co-Sign Detail Recorded Client Recorded Date Recorded By Document 09/09/21 14:06 DL [id number] 09/09/21 14:07 DL 09/09/21 14:06 Wound Care Nurse 3 4-right 2nd toe plantar -Ulcer Cleansing Rinsed/ Irrigated with Saline -Foul Odor after Cleansing No -Primary Dressing Applied C Hydrogel ($) -Primary Dressing Covered/Secured with Dry Gauze & Roll Gauze, Secured with Tape Treatment Response Procedure Tolerated Well Pain Scale: 0-10 Numeric Is Patient Pain Free? Yes WC - Visit Discharge Discharge Condition Stable Ambulatory Status Ambulatory Transportation Private Auto Assessment/Plan Assessment/Plan (1) Non-pressure chronic ulcer of other part of right foot with fat layer exposed: CODE(S): L97.512 - Non-pressure chronic ulcer of other part of right foot with fat layer exposed (2) Other hereditary and idiopathic neuropathies: CODE(S): G60.8 - Other hereditary and idiopathic neuropathies (3) Type 2 diabetes mellitus with diabetic polyneuropathy: CODE(S): E11.42 - Type 2 diabetes mellitus with diabetic polyneuropathy (4) Other specified peripheral vascular diseases: CODE(S): I73.89 - Other specified peripheral vascular diseases (5) Venous insufficiency (chronic) (peripheral): CODE(S): I87.2 - Venous insufficiency (chronic) (peripheral) (6) Localized edema: CODE(S): R60.0 - Localized edema PLAN: I reviewed and discussed his case today. Debridement was performed today as noted in the clinical panel to all of the ulcer sites. The following work up and care recommendations were made: Dressing: Hydrogel and gauze once daily. Wash: Antibacterial soap and water Offload: Surgical shoe was dispensed previously, and he was advised to wear this while inside. To wear protective shoes while outside. To heel weightbear and stay off toes. Vascular: His vascular studies do not demonstrate evidence of arterial occlusive disease. He has normal ABIs and triphasic waveforms and digital brachial indices. He does have a history of cold injury from the late 1970s and he may have had prior frostbite. This is consistent with his clinical findings and I recommend he avoids cold exposure. Edema: There is no DVT noted on his venous Doppler. He does not have venous insufficiency in the right lower extremity. He does have one vein that has venous insufficiency to the left. Is okay to wear an Jan wrap Infection: He was reassured no local signs of infection are noted. To monitor. Pain: Not present today Host factors: He has neuropathy and he will be screened for diagnosis of diabetes. Diagnostic data: I recommend ordering labs including CBC, CMP, and hemoglobin A1c. Labs from 07-16-2021 reviewed. He does not have leukocytosis or abnormal kidney function. He does not appear to have diabetes and his A1c was 5.4%. Imaging: His foot x-rays were reviewed without osseous destruction adjacent to the right second toe ulcer. There is no soft tissue emphysema foreign body or distinct vessel calcification seen. He is at risk for limb loss and delayed healing given his clinical exam findings and potential comorbidities that are being worked up at this time. It is noted his primary care physician is Dr. Baer. Note: [employer] speech recognition pressure testing technician software was used to create portions of this document. Sound-alike and misspelled words, as well as other pressure testing technician errors may be contained in the documentation. I answered all the patient's questions. To return to the wound healing center in 1 week or call sooner if the patient has any questions or concerns.
[2021-09-24 13:24] VITALS: BP 157/84; PULSE 71; RESP 16; TEMP 36.1
--- NOTE | 2021-09-24 14:05 | PN.PCM_ITS ---
History of Present Illness Date of Service: 09/24/21 Chief Complaint: Right second toe ulcer History of Wound: 66-year-old male presents to the wound healing center for chronic toe ulcer. He applies hydrogel daily. He wears boots that have more toe space. He does have rest paresthesias up to his ankle level. He denies odor, redness, fever, chill, nausea, vomiting. He denies known drainage. Progress of Wound: Improving Objective Data Objective Data Vital Signs: Vital Signs Temp Pulse Resp BP 96.9 F L 71 16 157/84 H 09/24/21 13:24 09/24/21 13:24 09/24/21 13:24 09/24/21 13:24 Oxygen Delivery Method Room Air Physical Exam Extremity Extremity Narrative: No calf tenderness Diminished pulses Muscle wasting noted Skin Skin Narrative: no purulence, no streaking, no odor, no infection. Skin discontinuity to plantar right second toe; reduced size with peripheral epithelialization. There is an opaque type appearance to all of the digits 1, 2, 3, 4, 5 bilateral that are cool to touch. His skin is atrophic and hairless. There are no interdigital maceration or purulence. There is no eschar. No bogginess or fluctuance on palpation. His skin is very dry. Granular base without deep tissue exposure, infection or necrosis Neuro Neuro Narrative: lack of normal epicritic sensation via light touch is consistent with neuropathy status Debridement Note Debridement Note Wound debrided: right plantar second toe Wound Grade/Stage: 1 Type of Debridement: Excisional debridement Anesthesia Used: 4% Lidocaine Solution Depth: in the subcutaneous layer Percentage of wound debrided: 100 Instrument Used: #15 blade Tissue Removed: fibrous, devitalized subcutaneous, biofilm, slough Severity: Fat Layer Exposed Amount of bleeding with debridement: Mild Bleeding Controlled with: Pressure Patient tolerated procedure: Patient tolerated procedure well Post-Debridement Measurements and Additional Note: Post-Debridement Measurements/Treatment WC - Nurse 1 - General Ulcer Assessment Start: 09/09/21 13:31 Freq: Status: Active Protocol: MATTHEW Activity Type Activity Date Activity User E-Sign Co-Sign Detail Recorded Client Recorded Date Recorded By Document 09/09/21 13:31 MW [id number] 09/09/21 13:34 MW Document 09/24/21 13:[address] [facility] [id number] 09/24/21 13:[address] [facility] 09/09/21 09/24/21 13:31 13:24 - Today's Visit Information Type of service Follow-up Visit Follow-up Visit (Physician/MUSIC PUBLISHER (Physician/MUSIC PUBLISHER ) ) Arrival Mode Ambulatory Ambulatory Transfer Assistance None None Accompanied by SELF Patient Identification Verified (Name & Yes Yes ) Patient Requires Transmission-Based No No Precautions Safety Precautions NA Vital Signs Temperature (97.8 F-99.1 F) 97.7 F L 96.9 F L Temperature Source Temporal Temporal Pulse Rate (60-100) 68 71 Pulse Location Monitor Monitor Respiratory Rate (12-18) 16 16 Respiratory rate source Observation Observation Oxygen Delivery Method Room Air Room Air Blood Pressure (90/60-120/80) 137/50 H 157/84 H Blood Pressure Mean (mm Hg) 79 108 Source Monitor Monitor Position Sitting Sitting Blood Pressure Location Right Arm Left Arm History Since Last Visit- (Skip if this is Patient's initial visit) Have you changed medications since your No No last visit? Any new allergies or adverse reactions No No Had a fall/change in ADL's that may No No increase risk of falls Signs or symptoms of abuse and/or No No neglect since last visit Have you been in the hospital since your No No last visit? Has dressing in place as prescribed Yes Yes Has compression in place as prescribed N/A N/A Has offloadiing in place as prescribed N/A N/A Experienced any changes in pain level or No No management Left Footwear Regular Shoe Regular Shoe Right Footwear Regular Shoe Regular Shoe Pain Scale: 0-10 Numeric Is Patient Pain Free? Yes Yes - Nurse 1 - General Ulcer Measurement Start: 09/09/21 13:31 Freq: Status: Active Protocol: Activity Type Activity Date Activity User E-Sign Co-Sign Detail Recorded Client Recorded Date Recorded By Document 09/09/21 13:31 [id number] 09/09/21 13:34 Document 09/24/21 13:[address] [facility] [id number] 09/24/21 13:[address] [facility] 09/09/21 09/24/21 13:31 13:24 Wound Center Nurse 1 4-right 2nd toe plantar -Combined with other wound No No -Current Size (cm) - Length 0.5 0.1 -Current Size (cm) - Width 0.8 0.1 -Current Size (cm) - Depth 0.1 0.1 -Total Square Cm 0.40 0.01 -Photo Taken No -Epithelialization None Present Large 67-100% -Tunneling No No -Undermining/Tunneling No No -Circular Undermining No No -Exudate Amt Small None Present -Exudate Type Serosanguineous -Wound Margin Flat & Intact -Granulation Amt None Present (0 %) -Granulation Quality N/A -Necrosis Amt Medium (34-66%) -Necrotic Tissue Type Adherent Slough -Structure Exposed N/A -Texture (Rocio-wound Skin Appearance) Assessed Assessed,Callus -Moisture (Rocio-wound Skin Appearance) Assessed,Dry/ Assessed,Dry/ Scaly Scaly -Color (Rocio-wound Skin Appearance) No Abnormality, Assessed Assessed -Temperature (Rocio-wound Skin No Abnormality No Abnormality Appearance) (Pt Warm) (Pt Warm) -Tenderness on Palpation (Rocio-wound No No Skin Appearance) -Ulcer Cleansing Rinsed/ Rinsed/ Irrigated with Irrigated with Saline Saline -Foul Odor after Cleansing No No -Anesthetic Used 4% Lidocaine 5% Lidocaine Solution Gel Lower Limb Edema Present No WC - Nurse 2 - General Ulcer CM Notes Start: 09/09/21 13:31 Freq: Status: Active Protocol: Activity Type Activity Date Activity User E-Sign Co-Sign Detail Recorded Client Recorded Date Recorded By Document 09/09/21 13:41 [id number] 09/09/21 13:43 Document 09/24/21 13:37 [id number] 09/24/21 13:38 09/09/21 09/24/21 13:41 13:37 Wound Center Nurse 2 4-right 2nd toe plantar -Time 13:41 13:37 -Correct Patient Yes Yes -Correct Side, Site, Position Yes Yes -Correct Procedure Yes Yes -Procedure Performed Yes Yes -Type of Procedure Debridement Debridement -Clinical Debridement Subcutaneous Subcutaneous -Tissue Removed Subcutaneous Subcutaneous -Post Debridement (cm) - Length 0.6 0.1 -Post Debridement (cm) - Width 0.8 0.2 -Post Debridement (cm) - Depth 0.1 0.1 -Total Square (Post) (cm) 0.48 0.02 -Area of Debridement (cm) - Length 0.6 0.1 -Area of Debridement (cm) - Width 0.8 0.2 -Total Square (Area) (cm) 0.48 0.02 -Tunneling No No -Undermining/Tunneling No No -Circular Undermining No No -Wound/Ulcer Outcome Not Healed Not Healed -Ulcer Cleansing Rinsed/ Rinsed/ Irrigated with Irrigated with Saline Saline -Foul Odor after Cleansing No No -Bioengineered Tissue No No -Bleeding Controlled with Pressure Pressure -Offloading Yes Yes -Type of Offloading Surgical Shoe Surgical Shoe -Treatment Response Procedure Procedure Tolerated Well Tolerated Well -Debridement - Subq, 1st 20sq cm Yes Yes Pain Scale: 0-10 Numeric Is Patient Pain Free? Yes Yes - Nurse 3 - General Ulcer D/C NN Start: 09/09/21 13:31 Freq: Status: Active Protocol: Activity Type Activity Date Activity User E-Sign Co-Sign Detail Recorded Client Recorded Date Recorded By Document 09/09/21 14:06 [id number] 09/09/21 14:07 Document 09/24/21 13:41 [id number] 09/24/21 13:41 09/09/21 09/24/21 14:06 13:41 Wound Care Nurse 3 4-right 2nd toe plantar -Ulcer Cleansing Rinsed/ Rinsed/ Irrigated with Irrigated with Saline Saline -Foul Odor after Cleansing No No -Primary Dressing Applied C Hydrogel ($) C Hydrogel ($) -Primary Dressing Covered/Secured with Dry Gauze & Dry Gauze, Roll Gauze, Secured with Secured with Tape Tape Treatment Response Procedure Tolerated Well Pain Scale: 0-10 Numeric Is Patient Pain Free? Yes Yes - Visit Discharge Discharge Condition Stable Stable Ambulatory Status Ambulatory Ambulatory Transportation Private Auto Private Auto Medication Reconcilliation completed & Yes provided to patient/care provider Clinical Summary of Care Provided Yes Assessment/Plan Assessment/Plan (1) Non-pressure chronic ulcer of other part of right foot with fat layer exposed: CODE(S): L97.512 - Non-pressure chronic ulcer of other part of right foot with fat layer exposed (2) Other hereditary and idiopathic neuropathies: CODE(S): G60.8 - Other hereditary and idiopathic neuropathies (3) Type 2 diabetes mellitus with diabetic polyneuropathy: CODE(S): E11.42 - Type 2 diabetes mellitus with diabetic polyneuropathy (4) Other specified peripheral vascular diseases: CODE(S): I73.89 - Other specified peripheral vascular diseases (5) Venous insufficiency (chronic) (peripheral): CODE(S): I87.2 - Venous insufficiency (chronic) (peripheral) (6) Localized edema: CODE(S): R60.0 - Localized edema PLAN: I reviewed and discussed his case today. Debridement was performed today as noted in the clinical panel to all of the ulcer sites. The following work up and care recommendations were made: Dressing: Hydrogel and gauze once daily. Wash: Antibacterial soap and water Offload: Surgical shoe was dispensed previously, and he was advised to wear this while inside. To wear protective shoes while outside. To heel weightbear and stay off toes. Vascular: His vascular studies do not demonstrate evidence of arterial occlusive disease. He has normal ABIs and triphasic waveforms and digital brachial indices. He does have a history of cold injury from the late 1970s and he may have had prior frostbite. This is consistent with his clinical findings and I recommend he avoids cold exposure. Edema: There is no DVT noted on his venous Doppler. He does not have venous insufficiency in the right lower extremity. He does have one vein that has venous insufficiency to the left. Is okay to wear an Jan wrap Infection: He was reassured no local signs of infection are noted. To monitor. Pain: Not present today Host factors: He has neuropathy and he will be screened for diagnosis of diabetes. Diagnostic data: I recommend ordering labs including CBC, CMP, and hemoglobin A1c. Labs from 07-16-2021 reviewed. He does not have leukocytosis or abnormal kidney function. He does not appear to have diabetes and his A1c was 5.4%. Imaging: His foot x-rays were reviewed without osseous destruction adjacent to the right second toe ulcer. There is no soft tissue emphysema foreign body or distinct vessel calcification seen. He is at risk for limb loss and delayed healing given his clinical exam findings and potential comorbidities that are being worked up at this time. It is noted his primary care physician is Dr. Baer. Note: [employer] speech recognition commercial service technician software was used to create portions of this document. Sound-alike and misspelled words, as well as other commercial service technician errors may be contained in the documentation. I answered all the patient's questions. To return to the wound healing center in 1 week or call sooner if the patient has any questions or concerns.
== END 2021-09-29 23:59 | disposition home or self-care (01) ==
LOC: WC 13:15
PROVIDERS: PCP Preventive Medicine Occupational Medicine; Referring Provider Podiatrist; Visit Provider Podiatrist
DX: E11.621 Type 2 diabetes mellitus with foot ulcer (principal); L97.512 Non-pressure chronic ulcer of other part of right foot with fat layer exposed; E11.51 Type 2 diabetes mellitus with diabetic peripheral angiopathy without gangrene; E11.42 Type 2 diabetes mellitus with diabetic polyneuropathy; I87.2 Venous insufficiency (chronic) (peripheral); G60.8 Other hereditary and idiopathic neuropathies; R60.0 Localized edema
CPT/HCPCS: 11042

== ENCOUNTER 2021-09-29 14:17 | Emergency (ER) | payer MEDICARE, BC, SELFPAY ==
[2021-09-29 14:17] VITALS: BP 143/73; PULSE 80; RESP 18; TEMP 36.2; O2SAT 98; BMI 34.4
--- NOTE | 2021-09-29 15:07 | CT_ITS ---
HISTORY: Vertex headache, problems with balance since August TECHNIQUE: Multiple axial images were obtained of the brain without intravenous contrast. A radiation dose optimization technique was used for this scan. IV Contrast dosage and agent: None. COMPARISON: None FINDINGS: # of images incl. paperwork: [id number] PARANASAL SINUSES AND MASTOID AIR CELLS: Right maxillary sinus mucous retention cyst. INTRACRANIAL HEMORRHAGE: None. BRAIN PARENCHYMA: No CT evidence of stroke. No intracranial masses. There is preservation of the hawkins/white matter interface. Posterior fossa structures are unremarkable. There is hypoattenuation of the periventricular white matter. Chronic involutional changes are noted. CSF SPACES: Appropriate for age. There is no hydrocephalus. MASS EFFECT: None. CALVARIUM: No acute fracture. CT/Brain/Head without Contrast IMPRESSION: Chronic involutional and white matter changes. No acute intracranial process. Individualized dose optimization techniques were used for this CT. at 1604 Reported and signed by: Ye Hong MD Electronically Signed: Ye Hong MD at 16:03 EST ,
--- NOTE | 2021-09-29 15:09 | EDS_ITS ---
HPI History of Present Illness Chief Complaint: Headache Detail of Chief Complaint: Vertex headache and problems with balance Informant: patient Onset/Context/Timing Onset: Weeks Timing: Intermittent Quality -Headache: Positive for Dull; Negative for Similar Prior Headaches Location: Vertex Current Severity: Mild Maximum Severity: Moderate Worsened by: As the day goes on an upright position Relieved by: Nothing Associated Symptoms/Injury Associated Symptoms: Negative for Fever, Nausea, Vomiting, Sore Throat, Sinus Pressure, Numbness, Tingling, Preceding Aura, Visual Changes, Blurred Vision, Photophobia and Visual Loss Injury - SARABIA: Negative for Direct Trauma Narrative Narrative: Patient is an elderly male who informed the he has a history of PAD. He denies diabetes however it is listed as a medical problem and he has neuropathy due to his diabetes. Patient presents because he believes he had a stroke. He states he should have presented in August when he first developed vertex headache which has been recurrent. It has not continued balance get worse the longer he stands and as the day goes on. He is also concerned because he is getting calluses on his feet which she has never had before. He denies double vision, blurred vision, change in vision or partial loss of vision. He denies ringing in his ears or decreased hearing. He denies rhinorrhea, congestion postnasal drainage. Denies sore throat. Denies change in voice or difficulty swallowing. He denies cardiac or respiratory symptoms. He denies nausea or vomiting. He denies diarrhea. He denies urologic symptoms. Prior similar symptoms: No Recent Illness/Hospitalization: Yes [facility] Medical History (Updated 09/29/21 @ 16:[address] Kalin Elmore MD) Appendicitis Neuropathy Home Medications NK 09/29/21 [History Last Taken Unknown] Allergy/AdvReac Type Severity Reaction Status Date / Time No Known Allergies Allergy Verified 09/29/21 14:17 Social History (Updated 09/29/21 @ 15:[address] Kalin Elmore MD) household members: none Smoking Status: Never smoker substance use type: does not use ROS ROS ED Constitutional Constitutional ED: Denies chills, fever(s), subjective, sweats or weight loss Eyes Eyes: Denies blurry vision, change in vision or diplopia ENT ENT ED: Denies ear pain, rhinorrhea or sore throat Cardiovascular Cardiovascular: Denies chest pain, orthopnea, palpitations, paroxysmal nocturnal dyspnea or racing heartbeat Respiratory/Chest Respiratory/Chest: Denies cough, dyspnea, dyspnea on exertion, orthopnea or paroxysmal nocturnal dyspnea Gastrointestinal Gastrointestinal: Denies abdominal pain, constipation, diarrhea, nausea or vomiting Genitourinary Genitourinary ED: Denies dysuria, hematuria or urinary frequency Musculoskeletal Musculoskeletal: Denies arthralgias, back pain, myalgias or neck pain Integumentary Denies Abrasions or rash Neurologic Neurologic: Reports headache(s) and other Details: Problems with balance ; Denies paresthesias or weakness Psychiatric Psychiatric: Reports other Details: Patient is apologetic numerous times during the history. ; Denies depression Endocrine Endocrinology: Denies polydipsia, polyphagia or polyuria Hematologic/Lymphatic Hematologic/Lymphatic: Denies easy bleeding or easy bruising EXAM Physical Exam Const Vital Signs: 09/29/21 14:17 09/29/21 15:29 Temperature 97.2 F L Temperature Source Temporal Pulse Rate 80 68 Respiratory Rate 18 14 Blood Pressure 143/73 H 156/80 H Blood Pressure Mean 96 105 Pulse Ox 98 97 Oxygen Delivery Method Room Air Room Air Positive well nourished, well developed and obese General Appearance ED: well developed and NAD; Negative for cyanotic, diaphoretic or pallor Nutritional Appearance: obese HEENT Reports normocephalic, TM's clear, moist mucous membranes and other Uvula midline. There is no angioedema. There is no erythema or exudate. atraumatic; Negative for tenderness, temporal artery tenderness or vesicular rash Face and Sinus: Negative for sinus tenderness Tympanic Membrane ED: Yes TM's clear Eyes PERRL and EOMs intact bilaterally General Eye ED: Yes pale conjunctiva, scleral icterus and other Other Details: There is no nystagmus. There is no APD. Difficult to see fundi. There was no papilledema. There is no visual field cut. Neck no lymphadenopathy, supple, no meningeal signs and no JVD General: other There is no carotid bruit. Resp normal respiratory effort and clear to auscultation bilaterally Cardio regular rate, regular rhythm, S1 normal heart sound, S2 normal heart sound and no murmurs GI non-tender and non-distended Auscultation: normoactive bowel sounds Palpation: soft Back/Spine no CVA tenderness General Back: Negative for tenderness Cervical Spine: Negative for cervical spine tenderness Thoracic Spine / Upper Back: Negative for thoracic spinal tenderness Lumbar Spine / Lower Back: Negative for lumbar spinal tenderness Extremity full ROM and normal capillary refill; Negative for normal to inspection Extremity Narrative: Patient has callus formation lateral and medial side of his feet. There is no evidence of infection. DP and PT pulse are palpable. General Extremety ED: Negative for edema or tenderness General Extremity: Negative for edema Neuro oriented x3, CN's II-XII intact bilaterally and no sensory deficits noted Neuro Narrative: Romberg test with eyes open and close was normal. The eye askew test was negative. The hint test was negative. Hebert Coma Scale: document GCS findings Spontaneous Obeys Commands Oriented 15 Sensorium / Orientation: awake and alert Coordination / Balance: [id number] test normal and [id number] test normal Motor Exam: strength 5/5 throughout Psych mental status grossly normal Skin General Skin Exam: Negative for jaundice or pallor Lesions: no lesions Rashes: no rashes Nails: normal; Negative for Beau's lines, clubbing, discolored or dystrophic MDM MDM MDM Narrative Medical decision making narrative: Patient with headache for greater than 1 month. This may represent sphenoid sinusitis that is chronic since his headache is vertex and worse with upright position. Believe his balance issue is due to his diabetic neuropathy and probable autonomic dysfunction. He does not describe vertigo and his neuro exam is normal. Patient was informed of his results at 1620. He informed that he omitted that he has history of obstructive sleep apnea. He also admits that he has multiple stressors due to several family emerge that are ill and finances. He was instructed follow-up with his primary care physician, Dr. Baer regarding his neuropathy. Suspect this is due to his neuropathy. Lab Data Labs: Laboratory Results - last 24 hr 09/29/21 09/29/21 15:30 15:30 WBC 7.1 RBC 4.66 Hgb 15.3 Hct 43.1 MCV 92.5 MCH 32.8 H MCHC 35.5 RDW Std Deviation 44.0 H RDW Coeff of Beatrice 13.0 Plt Count 212 MPV 10.5 Immature Gran % (Auto) 0.300 Neut % (Auto) 74.9 H Lymph % (Auto) 17.8 L [place] % (Auto) 6.2 Eos % (Auto) 0.4 Baso % (Auto) 0.4 Absolute Neuts (auto) 5.3 Absolute Lymphs (auto) 1.26 Nucleated RBC % 0 ESR 10 Sodium 140 Potassium 3.7 Chloride 108 H Carbon Dioxide 27.0 Anion Gap 5 BUN 20 H Creatinine 0.94 Estim Creat Clear Calc 84.85 Est GFR (MDRD) Af Amer 103 Est GFR (MDRD) Non-Af 85 BUN/Creatinine Ratio 21.2 H Glucose 98 Calcium 9.4 Total Bilirubin 0.80 AST 18 ALT 29 Alkaline Phosphatase 75 Total Protein 7.0 Albumin 3.7 Globulin 3.3 Albumin/Globulin Ratio 1.1 Radiography Diagnostic Testing: Clinical Impression(s) from Imaging Studies Brain CT 09/29/21 15:07 IMPRESSION: Chronic involutional and white matter changes. No acute intracranial process. Individualized dose optimization techniques were used for this CT. at 1604 Reported and signed by: Ye Hong MD Electronically Signed: Ye Hong MD at 16:03 EST Reading Location ID and State: [facility], [facility] / [place] Tel , Service support , Discharge Plan Triage Chief Complaint: Headache Other Complaint: Dizziness ED Provider: Kalin Elmore Dx/Rx/DC Orders Clinical Impression: Vertex headache, Callus of foot, Diabetic autonomic neuropathy associated with type 2 diabetes mellitus Instructions: ED Neuropathy, Peripheral, Diabetic Neuropathy Prescriptions: No Action NK RF: 0 Primary Care Provider: Stephen Gomez Referrals: Stephen Gomez DO [Primary Care Provider] - 1 Week Disposition Disposition: Home, Self Care
[2021-09-29 15:29] VITALS: BP 156/80; PULSE 68; RESP 14; O2SAT 97
[2021-09-29 15:43] LABS: Absolute Lymphocyte Count 1.26 X10^3/uL (0.83-4.51); Absolute Neutrophil Count 5.3 X10^3/uL (2.0-7.7); Basophil# 0.03 X10^3/uL; Basophil% 0.4 % (0-1); Eosinophil# 0.03 X10^3/uL; Eosinophils% 0.4 % (0-5); Hematocrit 43.1 % (40-54); Hemoglobin 15.3 g/dL (13.0-16.5); Lymphocyte # 1.26 X10^3/ul (0.83-4.51); Lymphocyte % 17.8 % (19-41); Mean Corp Hgb Conc 35.5 g/dL (32-36); Mean Corpuscular Hgb 32.8 pg (27.0-32.0); Mean Corpuscular Volume 92.5 fL (80-94); Mean Platelet Vol. 10.5 fl (6.2-12.0); Monocyte# 0.44 X10^3/uL; Monocyte% 6.2 % (0-10); NRBC Flagged by Analyzer 0 % (0-5); Neutrophil # 5.28 X10^3/uL (2.7-7.7); Neutrophil % 74.9 % (47-70); Platelet Count 212 K/mm3 (150-450); Red Blood Count 4.66 M/mm3 (4.6-6.2); White Blood Count 7.1 K/mm3 (4.4-11.0)
[2021-09-29 15:58] LABS: ALB/GLOB Ratio 1.1 RATIO (0.9-2.4); AST(SGOT) 18 U/L (15-37); Alanine Aminotransfer ALT/SGPT 29 U/L (16-61); Albumin, Serum 3.7 g/dL (3.2-5.0); Alkaline Phosphatase 75 U/L (45-117); Anion Gap 5 (5-15); BUN 20 mg/dL (7-18); BUN/Creat Ratio 21.2 RATIO (10-20); Calcium,Total 9.4 mg/dL (8.5-10.1); Chloride 108 mmol/L (98-107); Creatinine, Serum 0.94 mg/dL (0.70-1.30); EST Glomerular Filtration Rate 85 mL/min (>60); Est Glom Filt Rate - Afr Amer 103 mL/min (>60); Estimated Creatinine Clearance 84.85 ml/min; Globulin 3.3 g/dL (2.2-4.2); Glucose 98 mg/dL (74-106); Potassium 3.7 mmol/L (3.5-5.1); Sodium Level 140 mmol/L (136-145)
[2021-09-29 16:12] LABS: Erythrocyte Sedimentation Rate 10 mm/hr (0-20)
[2021-09-29 16:30] VITALS: BP 120/67; PULSE 58; RESP 16; O2SAT 97
== END 2021-09-29 16:31 | disposition home or self-care (01) ==
PROVIDERS: Emergency Provider Emergency Medicine; PCP Preventive Medicine Occupational Medicine; Visit Provider Emergency Medicine
DX: R42 Dizziness and giddiness (principal); E11.51 Type 2 diabetes mellitus with diabetic peripheral angiopathy without gangrene; E11.40 Type 2 diabetes mellitus with diabetic neuropathy, unspecified; R51.9 Headache, unspecified; E66.9 Obesity, unspecified; Z68.34 Body mass index [BMI] 34.0-34.9, adult
CPT/HCPCS: 70450; 80053; 85025; 85652; 99284; A4216

== ENCOUNTER 2021-10-22 11:14 | Outpatient (CLI) | payer MEDICARE, BC, SELFPAY ==
--- NOTE | 2021-10-22 11:19 | ADUL_ITS ---
Reason For Study: Stricture of artery Right Velocities Ext. Iliac Artery, dist = 130.8 cm./sec. Common Femoral Artery, mid = 101.5 cm./sec. Supf Femoral Artery, prox = 96.1. cm./sec. Supf Femoral Artery, mid = 96 cm./sec. Supf Femoral Artery, dist. = 86.9 cm./sec. Profunda Femoral Artery = 52.3 cm./sec. Popliteal Artery, mid = 63.2 cm./sec. Post. Tibial Artery, prox = 79.4 cm./sec. Post. Tibial Artery, mid = 75.7 cm./sec. Post. Tibial Artery, dist = 62.1 cm./sec. Peroneal Artery, prox = 51.1 cm./sec. Peroneal Artery, mid = 65.8 cm./sec. Peroneal Artery,dist = 58.5 cm./sec. Ant. Tibial Artery, prox = 80.6 cm./sec. Ant. Tibial Artery, mid = 58.5 cm./sec. Ant. Tibial Artery, dist = 54.8 cm./sec. Procedure Exam performed in department. VL/US Art Duplex Unilat Lower Ext Interpretation Summary Right lower extremities no evidence of significant occlusive disease at rest wi th triphasic flow noted throughout. Ordering Physician: Ion Mark Referring Physician: Stephen Gomez Performed By: Teresa Cesar RVT
== END 2021-10-22 23:59 | disposition home or self-care (01) ==
LOC: CVS 11:16
PROVIDERS: PCP Preventive Medicine Occupational Medicine; Referring Provider Surgery Vascular Surgery; Visit Provider Surgery Vascular Surgery
DX: I77.1 Stricture of artery (principal); L97.512 Non-pressure chronic ulcer of other part of right foot with fat layer exposed; I70.213 Atherosclerosis of native arteries of extremities with intermittent claudication, bilateral legs; I73.89 Other specified peripheral vascular diseases; I10 Essential (primary) hypertension; M79.609 Pain in unspecified limb; M79.89 Other specified soft tissue disorders; I87.2 Venous insufficiency (chronic) (peripheral); R60.0 Localized edema; G60.8 Other hereditary and idiopathic neuropathies; Z79.02 Long term (current) use of antithrombotics/antiplatelets
CPT/HCPCS: 93926; 99213; G0463

== ENCOUNTER 2021-10-22 13:45 | Outpatient (RCR) | payer MEDICARE, BC, SELFPAY ==
[2021-09-30 00:34] VITALS: BP 157/84; PULSE 71; RESP 16; TEMP 36.1
[2021-10-08 13:58] VITALS: BP 147/77; PULSE 70; RESP 18; TEMP 36.2
--- NOTE | 2021-10-08 15:03 | PN.PCM_ITS ---
History of Present Illness Date of Service: 10/08/21 Chief Complaint: Right second toe ulcer History of Wound: 66-year-old male presents to the wound healing center for chronic toe ulcer. He applies hydrogel daily. He wears boots that have more toe space. He does have rest paresthesias up to his ankle level. He denies odor, redness, fever, chill, nausea, vomiting. He denies known drainage. He relates he has a vascular test plan and the date is still pending. He also reports he was started on clopidogrel and also antibiotic doxycycline. He denies redness or odor to the foot. Progress of Wound: Improving Objective Data Objective Data Vital Signs: Vital Signs Temp Pulse Resp BP 97.1 F L 70 18 147/77 H 10/08/21 13:58 10/08/21 13:58 10/08/21 13:58 10/08/21 13:58 Physical Exam Extremity Extremity Narrative: No calf tenderness Diminished pulses Muscle wasting noted Skin Skin Narrative: no purulence, no streaking, no odor, no infection. Skin discontinuity to plantar right second toe; reduced size with peripheral epithelialization. There is an opaque type appearance to all of the digits 1, 2, 3, 4, 5 bilateral that are cool to touch. His skin is atrophic and hairless. There are no interdigital maceration or purulence. There is no eschar. No bogginess or fluctuance on palpation. His skin is very dry. Granular base without deep tissue exposure, infection or necrosis - reduced size and depth noted Neuro Neuro Narrative: lack of normal epicritic sensation via light touch is consistent with neuropathy status Debridement Note Debridement Note Wound debrided: Plantar right second toe Type of Debridement: Excisional debridement Anesthesia Used: 4% Lidocaine Solution Depth: in the subcutaneous layer Percentage of wound debrided: 100 Instrument Used: #15 blade Tissue Removed: fibrous, devitalized subcutaneous, biofilm, slough Severity: Fat Layer Exposed Amount of bleeding with debridement: Mild Bleeding Controlled with: Pressure Patient tolerated procedure: Patient tolerated procedure well Post-Debridement Measurements and Additional Note: Post-Debridement Measurements/Treatment DON - Nurse 1 - General Ulcer Assessment Start: 10/08/21 13:58 Freq: Status: Active Protocol: MATTHEW Activity Type Activity Date Activity User E-Sign Co-Sign Detail Recorded Client Recorded Date Recorded By Document 10/08/21 13:58 [id number] 10/08/21 14:02 10/08/21 13:58 - Today's Visit Information Type of service Follow-up Visit (Physician/[employer] ) Arrival Mode Ambulatory Transfer Assistance None Patient Identification Verified (Name & Yes ) Vital Signs Temperature (97.8 F-99.1 F) 97.1 F L Temperature Source Temporal Pulse Rate (60-100) 70 Pulse Location Monitor Respiratory Rate (12-18) 18 Respiratory rate source Observation Blood Pressure (90/60-120/80) 147/77 H Blood Pressure Mean (mm Hg) 100 Source Monitor Position Semi-Fowlers Blood Pressure Location Left Arm History Since Last Visit- (Skip if this is Patient's initial visit) Have you changed medications since your No last visit? Any new allergies or adverse reactions No Had a fall/change in ADL's that may No increase risk of falls Signs or symptoms of abuse and/or No neglect since last visit Have you been in the hospital since your No last visit? Has dressing in place as prescribed Yes Has compression in place as prescribed No Has offloadiing in place as prescribed No Experienced any changes in pain level or No management Pain Scale: 0-10 Numeric Is Patient Pain Free? Yes - Nurse 1 - General Ulcer Measurement Start: 10/08/21 13:58 Freq: Status: Active Protocol: Activity Type Activity Date Activity User E-Sign Co-Sign Detail Recorded Client Recorded Date Recorded By Document 10/08/21 13:58 [id number] 10/08/21 14:02 10/08/21 13:58 Wound Center Nurse 1 4-right 2nd toe plantar -Combined with other wound No -Current Size (cm) - Length 0.1 -Current Size (cm) - Width 0.1 -Current Size (cm) - Depth 0.1 -Total Square Cm 0.01 -Tunneling No -Undermining/Tunneling No -Circular Undermining No -Exudate Amt None Present -Wound Margin Distinct, Outline Attached -Granulation Amt Medium (34-66%) -Granulation Quality [place] -Slough/Fibrin Yes -Necrosis Amt Medium (34-66%) -Necrotic Tissue Type Adherent Slough -Structure Exposed N/A -Texture (Rocio-wound Skin Appearance) Assessed -Moisture (Rocio-wound Skin Appearance) Dry/Scaly -Color (Rocio-wound Skin Appearance) Assessed -Temperature (Rocio-wound Skin No Abnormality Appearance) (Pt Warm) -Tenderness on Palpation (Rocio-wound No Skin Appearance) -Ulcer Cleansing Wound Cleanser -Foul Odor after Cleansing No -Anesthetic Used 5% Lidocaine Gel - Nurse 2 - General Ulcer CM Notes Start: 10/08/21 13:58 Freq: Status: Active Protocol: Activity Type Activity Date Activity User E-Sign Co-Sign Detail Recorded Client Recorded Date Recorded By Document 10/08/21 14:21 [id number] 10/08/21 14:22 10/08/21 14:21 Wound Center Nurse 2 -Time 14:21 -Correct Patient Yes -Correct Side, Site, Position Yes -Correct Procedure Yes -Procedure Performed Yes -Type of Procedure Debridement -Clinical Debridement Subcutaneous -Tissue Removed Subcutaneous -Post Debridement (cm) - Length 0.2 -Post Debridement (cm) - Width 0.4 -Post Debridement (cm) - Depth 0.1 -Total Square (Post) (cm) 0.08 -Area of Debridement (cm) - Length 0.2 -Area of Debridement (cm) - Width 0.4 -Total Square (Area) (cm) 0.08 -Tunneling No -Undermining/Tunneling No -Circular Undermining No -Wound/Ulcer Outcome Not Healed -Ulcer Cleansing Rinsed/ Irrigated with Saline -Foul Odor after Cleansing No -Bioengineered Tissue No -Bleeding Controlled with Pressure -Offloading No -Treatment Response Procedure Tolerated Well -Debridement - Subq, 1st 20sq cm Yes Pain Scale: 0-10 Numeric Is Patient Pain Free? Yes - Nurse 3 - General Ulcer D/C NN Start: 10/08/21 13:58 Freq: Status: Active Protocol: Activity Type Activity Date Activity User E-Sign Co-Sign Detail Recorded Client Recorded Date Recorded By Document 10/08/21 14:38 [facility] [id number] 10/08/21 14:39 [facility] 10/08/21 14:38 Wound Care Nurse 3 4-right 2nd toe plantar -Ulcer Cleansing Rinsed/ Irrigated with Saline -Foul Odor after Cleansing No -Primary Dressing Applied C Hydrogel ($) -Primary Dressing Covered/Secured with Dry Gauze, Secured with Tape Treatment Response Procedure Tolerated Well Pain Scale: 0-10 Numeric Is Patient Pain Free? Yes WC - Visit Discharge Discharge Condition Stable Ambulatory Status Ambulatory Transportation Private Auto Assessment/Plan Assessment/Plan (1) Non-pressure chronic ulcer of other part of right foot with fat layer exposed: CODE(S): L97.512 - Non-pressure chronic ulcer of other part of right foot with fat layer exposed (2) Other hereditary and idiopathic neuropathies: CODE(S): G60.8 - Other hereditary and idiopathic neuropathies (3) Other specified peripheral vascular diseases: CODE(S): I73.89 - Other specified peripheral vascular diseases (4) Venous insufficiency (chronic) (peripheral): CODE(S): I87.2 - Venous insufficiency (chronic) (peripheral) (5) Localized edema: CODE(S): R60.0 - Localized edema PLAN: I reviewed and discussed his case today. Debridement was performed today as noted in the clinical panel to all of the ulcer sites. The following work up and care recommendations were made: Dressing: Hydrogel and gauze once daily. Wash: Antibacterial soap and water Offload: Surgical shoe was dispensed previously, and he was advised to wear this while inside. To wear protective shoes while outside. To heel weightbear and stay off toes. He is struggling with compliance. Vascular: His vascular studies do not demonstrate evidence of arterial occlusive disease. He has normal ABIs and triphasic waveforms and digital brachial indices. He does have a history of cold injury from the late 1970s and he may have had prior frostbite. This is consistent with his clinical findings and I recommend he avoids cold exposure. He relates he is not seeing a vascular specialist and plans to go for additional testing. He relates his primary care provider also recently started him on clopidogrel to improve perfusion. Edema: There is no DVT noted on his venous Doppler. He does not have venous insufficiency in the right lower extremity. He does have one vein that has venous insufficiency to the left. Is okay to wear an Jan wrap Infection: He was reassured no local signs of infection are noted. To monitor. It is noted that he reports his primary care provider started him on oral antibiotics due to concern of an infection last week. I recommend he completes the reported doxycycline that he was placed on. I was also reassuring him that there are no local or systemic signs of illness noted today and I do not recommend additional antibiotics. Pain: Not present today Host factors: He has neuropathy and he will be screened for diagnosis of diabetes. Diagnostic data: I recommend ordering labs including CBC, CMP, and hemoglobin A1c. Labs from 07-16-2021 reviewed. He does not have leukocytosis or abnormal kidney function. He does not appear to have diabetes and his A1c was 5.4%. Imaging: His foot x-rays were reviewed without osseous destruction adjacent to the right second toe ulcer. There is no soft tissue emphysema foreign body or distinct vessel calcification seen. He asked about bone spurs today and is considering having great toe surgery. I do not see any overt spurs and I do not recommend digital surgery that is elective at this time if he has questionable perfusion to the toes. He is at risk for limb loss and delayed healing given his clinical exam findings and potential comorbidities that are being worked up at this time. It is noted his primary care physician is Dr. Baer. Note: [employer] speech recognition senior project manager software was used to create portions of this document. Sound-alike and misspelled words, as well as other senior project manager errors may be contained in the documentation. I answered all the patient's questions. To return to the wound healing center in 2 weeks or call sooner if the patient has any questions or concerns. The medical decision making level is straightforward. The problem treated is minor or self-limiting. There is noted minimal risk of morbidity after considering this treatment plan and diagnostic data.
[2021-10-22 13:41] VITALS: BP 158/58; PULSE 72; RESP 18; TEMP 36.6
--- NOTE | 2021-10-22 14:11 | PCM.WC.PN ---
History of Present Illness Date of Service: 10/22/21 Chief Complaint: Right second toe ulcer History of Wound: 66-year-old male presents to the wound healing center for chronic toe ulcer. He applies hydrogel daily. He wears boots that have more toe space. He does have rest paresthesias up to his ankle level. He denies odor, redness, fever, chill, nausea, vomiting. He denies known drainage. He relates he had a vascular test and he will follow up with Dr. Mark to discuss his plan on November 05. He denies redness or odor to the foot. He denies foot drainage. Progress of Wound: healed Objective Data Objective Data Vital Signs: Vital Signs Temp Pulse Resp BP 97.8 F 72 18 158/58 H 10/22/21 13:41 10/22/21 13:41 10/22/21 13:41 10/22/21 13:41 Physical Exam Extremity Extremity Narrative: No calf tenderness Diminished pulses Muscle wasting noted Skin Skin Narrative: no purulence, no streaking, no odor, no infection. full epithelialization to plantar right second toe; ulcer is healed. There is an opaque type appearance to all of the digits 1, 2, 3, 4, 5 bilateral that are cool to touch. His skin is atrophic and hairless. There are no interdigital maceration or purulence. There is no eschar. No bogginess or fluctuance on palpation. His skin is very dry. Neuro Neuro Narrative: lack of normal epicritic sensation via light touch is consistent with neuropathy status Debridement Note Debridement Note Post-Debridement Measurements and Additional Note: Post-Debridement Measurements/Treatment - Nurse 1 - General Ulcer Assessment Start: 10/08/21 13:58 Freq: Status: Active Protocol: MATTHEW Activity Type Activity Date Activity User E-Sign Co-Sign Detail Recorded Client Recorded Date Recorded By Document 10/08/21 13:58 RB [id number] 10/08/21 14:02 RB Document 10/22/21 13:41 DL [id number] 10/22/21 13:43 DL 10/08/21 10/22/21 13:58 13:41 - Today's Visit Information Type of service Follow-up Visit Follow-up Visit (Physician/COURT OPERATIONS CLERK (Physician/COURT OPERATIONS CLERK ) ) Arrival Mode Ambulatory Ambulatory Transfer Assistance None None Patient Identification Verified (Name & Yes Yes ) Patient Requires Transmission-Based No Precautions Vital Signs Temperature (97.8 F-99.1 F) 97.1 F L 97.8 F Temperature Source Temporal Temporal Pulse Rate (60-100) 70 72 Pulse Location Monitor Monitor Respiratory Rate (12-18) 18 18 Respiratory rate source Observation Observation Blood Pressure (90/60-120/80) 147/77 H 158/58 H Blood Pressure Mean (mm Hg) 100 91 Source Monitor Monitor Position Semi-Fowlers Blood Pressure Location Left Arm History Since Last Visit- (Skip if this is Patient's initial visit) Have you changed medications since your No No last visit? Any new allergies or adverse reactions No No Had a fall/change in ADL's that may No No increase risk of falls Signs or symptoms of abuse and/or No No neglect since last visit Have you been in the hospital since your No No last visit? Has dressing in place as prescribed Yes Yes Has compression in place as prescribed No N/A Has offloadiing in place as prescribed No Yes Experienced any changes in pain level or No No management Pain Scale: 0-10 Numeric Is Patient Pain Free? Yes Yes WC - Nurse 1 - General Ulcer Measurement Start: 10/08/21 13:58 Freq: Status: Active Protocol: Activity Type Activity Date Activity User E-Sign Co-Sign Detail Recorded Client Recorded Date Recorded By Document 10/08/21 13:58 RB [id number] 10/08/21 14:02 RB Document 10/22/21 13:41 DL [id number] 10/22/21 13:43 DL 10/08/21 10/22/21 13:58 13:41 Wound Center Nurse 1 4-right 2nd toe plantar -Combined with other wound No -Current Size (cm) - Length 0.1 0.4 -Current Size (cm) - Width 0.1 0.5 -Current Size (cm) - Depth 0.1 0.1 -Total Square Cm 0.01 0.20 -Photo Taken No -Tunneling No -Undermining/Tunneling No -Circular Undermining No -Exudate Amt None Present Small -Wound Margin Distinct, Distinct, Outline Outline Attached Attached -Granulation Amt Medium (34-66%) Large (67-100%) -Granulation Quality [place] -Slough/Fibrin Yes -Necrosis Amt Medium (34-66%) -Necrotic Tissue Type Adherent Slough Adherent Slough -Structure Exposed N/A N/A -Texture (Rocio-wound Skin Appearance) Assessed Scarring -Moisture (Rocio-wound Skin Appearance) Dry/Scaly No Abnormality -Color (Rocio-wound Skin Appearance) Assessed No Abnormality -Temperature (Rocio-wound Skin No Abnormality No Abnormality Appearance) (Pt Warm) (Pt Warm) -Tenderness on Palpation (Rocio-wound No No Skin Appearance) -Ulcer Cleansing Wound Cleanser Rinsed/ Irrigated with Saline -Foul Odor after Cleansing No No -Anesthetic Used 5% Lidocaine 5% Lidocaine Gel Gel - Nurse 2 - General Ulcer CM Notes Start: 10/08/21 13:58 Freq: Status: Active Protocol: Activity Type Activity Date Activity User E-Sign Co-Sign Detail Recorded Client Recorded Date Recorded By Document 10/08/21 14:21 [id number] 10/08/21 14:22 Document 10/22/21 13:52 [id number] 10/22/21 13:56 10/08/21 10/22/21 14:21 13:52 Wound Center Nurse 2 4-right 2nd toe plantar -Time 14:21 -Correct Patient Yes No -Correct Side, Site, Position Yes No -Correct Procedure Yes No -Procedure Performed Yes No -Type of Procedure Debridement -Clinical Debridement Subcutaneous -Tissue Removed Subcutaneous -Post Debridement (cm) - Length 0.2 0 -Post Debridement (cm) - Width 0.4 0 -Post Debridement (cm) - Depth 0.1 0 -Total Square (Post) (cm) 0.08 0 -Area of Debridement (cm) - Length 0.2 0 -Area of Debridement (cm) - Width 0.4 0 -Total Square (Area) (cm) 0.08 0 -Tunneling No -Undermining/Tunneling No -Circular Undermining No -Wound/Ulcer Outcome Not Healed Healed- Epithelialized -Ulcer Cleansing Rinsed/ Irrigated with Saline -Foul Odor after Cleansing No -Bioengineered Tissue No -Bleeding Controlled with Pressure -Treatment Response Procedure Tolerated Well -Offloading No -Debridement - Subq, 1st 20sq cm Yes Pain Scale: 0-10 Numeric Is Patient Pain Free? Yes Yes - Nurse 3 - General Ulcer D/C NN Start: 10/08/21 13:58 Freq: Status: Active Protocol: Activity Type Activity Date Activity User E-Sign Co-Sign Detail Recorded Client Recorded Date Recorded By Document 10/08/21 14:38 [facility] [id number] 10/08/21 14:39 [facility] Document 10/22/21 13:56 [id number] 10/22/21 13:56 10/08/21 10/22/21 14:38 13:56 Wound Care Nurse 3 4-right 2nd toe plantar -Ulcer Cleansing Rinsed/ Irrigated with Saline -Foul Odor after Cleansing No -Primary Dressing Applied C Hydrogel ($) -Primary Dressing Covered/Secured with Dry Gauze, Secured with Tape Treatment Response Procedure Tolerated Well Pain Scale: 0-10 Numeric Is Patient Pain Free? Yes Yes WC - Visit Discharge Discharge Condition Stable Stable Ambulatory Status Ambulatory Ambulatory Transportation Private Auto Private Auto Medication Reconcilliation completed & Yes provided to patient/care provider Clinical Summary of Care Provided Yes Assessment/Plan Assessment/Plan (1) Non-pressure chronic ulcer of other part of right foot with fat layer exposed: CODE(S): L97.512 - Non-pressure chronic ulcer of other part of right foot with fat layer exposed (2) Other hereditary and idiopathic neuropathies: CODE(S): G60.8 - Other hereditary and idiopathic neuropathies (3) Other specified peripheral vascular diseases: CODE(S): I73.89 - Other specified peripheral vascular diseases (4) Venous insufficiency (chronic) (peripheral): CODE(S): I87.2 - Venous insufficiency (chronic) (peripheral) (5) Localized edema: CODE(S): R60.0 - Localized edema PLAN: I reviewed and discussed his case today. The ulcer site has healed. To monitor for recurrence. He was reassured no wound or infection is noted today. The following work up and care recommendations were made: Dressing: Discontinue Wash: Antibacterial soap and water. Apply lotion to adjacent skin to keep skin integrity intact Offload: Surgical shoe for another week and then progressed into properly fitted shoes. Vascular: His vascular studies do not demonstrate evidence of arterial occlusive disease. He has normal ABIs and triphasic waveforms and digital brachial indices. He does have a history of cold injury from the late 1970s and he may have had prior frostbite. This is consistent with his clinical findings and I recommend he avoids cold exposure. He relates he is not seeing a vascular specialist. He had additional testing performed within the past week and will go for clinical follow-up on November 05. He relates his primary care provider also recently started him on clopidogrel to improve perfusion. Edema: There is no DVT noted on his venous Doppler. He does not have venous insufficiency in the right lower extremity. He does have one vein that has venous insufficiency to the left. Is okay to continue with the use of an Jan wrap Infection: He was reassured no local signs of infection are noted. To monitor. It is noted that he reports his primary care provider started him on oral antibiotics due to concern of an infection last week. I recommend he completes the reported doxycycline that he was placed on. I was also reassuring him that there are no local or systemic signs of illness noted today and I do not recommend additional antibiotics. Pain: Not present today Host factors: He has neuropathy and he will be screened for diagnosis of diabetes. Note: [employer] speech recognition program coordinator executive education software was used to create portions of this document. Sound-alike and misspelled words, as well as other program coordinator executive education errors may be contained in the documentation. I answered all the patient's questions. He is discharged from the wound healing center at this time because the ulcer is healed. To follow-up with the foot and ankle Center in 1 month and I will also follow along with his vascular surgery recommendations as well. I also recommend routine palliative care every 2 to 3 months for nails and calluses due to his risk status. The medical decision making level is moderate. There is noted moderate risk of morbidity after considering this treatment plan and diagnostic data. Considerations were given to prescription management, decisions regarding surgical options, or social determinants of health. The problems addressed require a moderate decision making level which includes one or more chronic illnesses (w/ exacerbation, progression, or side effects), two or more stable chronic illnesses, one undiagnosed new problem w/ uncertain prognosis, one acute illness with systemic symptoms, or one acute complicated injury. The medical decision making level is moderate based on data including at least three of the following: review of prior external notes, review of a test, ordering a test, assessment requiring an independent historian.
== END 2021-10-30 23:59 | disposition home or self-care (01) ==
LOC: WC 13:45
PROVIDERS: PCP Preventive Medicine Occupational Medicine; Referring Provider Podiatrist; Visit Provider Podiatrist
DX: L97.512 Non-pressure chronic ulcer of other part of right foot with fat layer exposed (principal); I73.89 Other specified peripheral vascular diseases; R60.0 Localized edema; G60.8 Other hereditary and idiopathic neuropathies; I87.2 Venous insufficiency (chronic) (peripheral); Z79.02 Long term (current) use of antithrombotics/antiplatelets
CPT/HCPCS: 11042; 99213; G0463

== ENCOUNTER 2022-11-09 14:44 | Emergency (ER) | payer MEDICARE, BC, SELFPAY ==
[2022-11-09 14:45] VITALS: BP 136/70; PULSE 72; RESP 16; TEMP 36.7; O2SAT 95; BMI 30.1
--- NOTE | 2022-11-09 16:27 | EX.ED.GENINJ ---
HPI History of Present Illness Chief Complaint: Fall Narrative Narrative: 67-year-old male presenting with right posterior hip pain. He states he fell last evening. He describes it as a mechanical fall. He fell on his right buttocks. He initially thought his tailbone. He does point to his right gluteal fold. No bruising or swelling. Patient ambulatory in the room. Denies any head trauma. [facility] Medical History Appendicitis Neuropathy Home Medications NK 09/29/21 [History Last Taken Unknown] Allergy/AdvReac Type Severity Reaction Status Date / Time No Known Allergies Allergy Verified 11/09/22 14:45 Social History household members: none Smoking Status: Never smoker substance use type: does not use ROS ROS ED Constitutional Constitutional ED: Denies chills or fever(s) Eyes Eyes: Denies change in vision ENT ENT ED: Denies rhinorrhea Cardiovascular Cardiovascular: Denies chest pain or palpitations Respiratory/Chest Respiratory/Chest: Denies cough or dyspnea Gastrointestinal Gastrointestinal: Denies abdominal pain or constipation Genitourinary Genitourinary ED: Denies dysuria or hematuria Musculoskeletal Musculoskeletal: Reports other Details: Right gluteal pain EXAM Physical Exam Const Vital Signs: 11/09/22 14:45 11/09/22 15:50 Temperature 98.0 F Temperature Source Temporal Pulse Rate 72 Respiratory Rate 16 Respiratory Effort Normal Respiratory Depth Normal Respiratory Pattern Normal Blood Pressure 136/70 H Blood Pressure Mean 92 Pulse Ox 95 Oxygen Delivery Method Room Air Room Air Positive well nourished General Appearance ED: NAD HEENT atraumatic Eyes EOMs intact bilaterally Resp normal respiratory effort Auscultation: Negative for rales, rhonchi or wheezes Cardio regular rhythm GI normal to inspection, nondistended, normoactive bowel sounds Neuro Neuro Narrative: Tenderness palpation right posterior gluteal region. No bruising or swelling. Patient is standing and ambulating in the room. Skin no rashes or lesions noted MDM MDM MDM Narrative Medical decision making narrative: Patient presenting with right gluteal pain. Patient states that he fell yesterday. He states it was a mechanical fall. He is able to ambulate. Initially he indicated it was his tailbone. On examination he is not tender on his sacrum. He is tender in his right gluteal region. We will obtain a right hip x-ray. Patient declines analgesia. X-ray of the right hip on my interpretation is no acute fracture or subluxation. Patient counseled this. He is counseled to take on ibuprofen alternating doses. Return precaution discussed. Impression: 1. Mechanical fall 2. Right hip contusion Radiography Diagnostic Testing: Clinical Impression(s) from Imaging Studies Hip/Pelvis X-Ray 11/09/22 16:35 IMPRESSION: No evidence of displaced pelvic or hip fracture. Electronically Signed: Juan White DO at 17:00 EDT Reading Location ID and State: [facility] / [place] Tel [phone], Service support , Discharge Plan Triage Chief Complaint: Fall ED Provider: Celso Sage Dx/Rx/DC Orders Instructions: ED Mechanical Fall, ED Hip Contusion Prescriptions: No Action NK Primary Care Provider: Stephen Gomez Referrals: Stephen Gomez DO [Primary Care Provider] - Disposition Disposition: Home, Self Care Discharge Date/Time: 11/09/22 17:34
--- NOTE | 2022-11-09 16:35 | RAD_ITS ---
INDICATION: pain EXAMINATION/TECHNIQUE: X-RAY - XR Right Hip Unilateral with Pelvis when performed; 2-3 Views COMPARISON: None. FINDINGS: PELVIC BONES: No displaced fracture, destructive or sclerotic lesions. Note that overlapping bowel shadows may however obscure fine detail. Sacroiliac joints are unremarkable. No widening of the pubic symphysis. HIPS: The articular structures are unremarkable. No displaced fracture seen in this frontal view. No soft tissue swelling or gas. Degenerative or lumbar changes. RAD/HIP, UNI W/ Pelvis 2-3 Views IMPRESSION: No evidence of displaced pelvic or hip fracture. Electronically Signed: Juan White DO at 17:00 EDT Reading Location ID and State: [facility] / [place] Tel [phone], Service support ,
== END 2022-11-09 17:34 | disposition home or self-care (01) ==
PROVIDERS: Emergency Provider Student in an Organized Health Care Education/Training Program; PCP Preventive Medicine Occupational Medicine; Visit Provider Student in an Organized Health Care Education/Training Program
DX: S70.01XA Contusion of right hip, initial encounter (principal); W19.XXXA Unspecified fall, initial encounter
CPT/HCPCS: 73502; 99282

== ENCOUNTER → 2023-01-13 | Outpatient (CLI) | payer MEDICARE, BC, SELFPAY | END | disposition home or self-care (01) | LOC: SL 19:56 | PROVIDERS: PCP Preventive Medicine Occupational Medicine; Referring Provider Nurse Practitioner Acute Care; Visit Provider Nurse Practitioner Acute Care | DX: G47.33 Obstructive sleep apnea (adult) (pediatric) (principal) | CPT/HCPCS: 95811 ==

== ENCOUNTER 2023-09-07 07:55 | Day surgery (SDC) | payer MEDICARE, BC, SELFPAY ==
[2023-09-07 08:26] VITALS: BP 128/79; PULSE 90; RESP 18; TEMP 36.2; O2SAT 99; BMI 28.8
[2023-09-07] MEDS: Lactated Ringers 1,000 ML 15 ML IV (08:31)
[2023-09-07 09:35] VITALS: BP 128/79; BP 90/46; PULSE 64; RESP 16; TEMP 36.3; O2SAT 100
--- NOTE | 2023-09-07 09:35 | OP.CCLET_ITS ---
09/07/2023 Stephen Gomez [address] [place] [address] Re : Colonoscopy procedure for Stephen Herrera Dear Dr. Gomez This procedure was performed on Thursday, September 07, 2023. My impressions and recommendations are as follows: Impressions : - The entire examined colon is normal on direct and retroflexion views. - No specimens collected. Recommendations : - Discharge patient to home. - Resume previous diet. - Continue present medications. - Repeat colonoscopy in 10 years for screening purposes. My findings are described in the full procedure note, which is enclosed. If I can be of further assistance, please feel free to contact me at Doctor phone number(s): , Work: . Sincerely, Yimi Ortega MD 09/07/2023 9:35:09 AM This report has been signed electronically.
--- NOTE | 2023-09-07 09:35 | OP.COLON_ITS ---
Patient Name: Stephen Herrera Procedure Date: 09/07/2023 9:07 AM Date of : 1955 Age: 67 Procedure: Colonoscopy Indications: High risk colon cancer surveillance: Personal history of colonic polyps Providers: Yimi Ortega MD Medicines: Monitored Anesthesia Care Patient Profile: This is a 67 year old male. Refer to note in patient chart for documentation of history and physical. Last Colonoscopy: 5 years ago. Complications: No immediate complications. Procedure: Pre-Anesthesia Assessment: - Prior to the procedure, a History and Physical was performed, and patient medications and allergies were reviewed. The patient's tolerance of previous anesthesia was also reviewed. The risks and benefits of the procedure and the sedation options and risks were discussed with the patient. All questions were answered, and informed consent was obtained. Prior Anticoagulants: The patient has taken no anticoagulant or antiplatelet agents. After reviewing the risks and benefits, the patient was deemed in satisfactory condition to undergo the procedure. After I obtained informed consent, the scope was passed under direct vision. Throughout the procedure, the patient's blood pressure, pulse, and oxygen saturations were monitored continuously. The pediatric colonoscope was introduced through the anus and advanced to the cecum, identified by appendiceal orifice and ileocecal valve. The colonoscopy was performed without difficulty. The patient tolerated the procedure well. The quality of the bowel preparation was good. The ileocecal valve, appendiceal orifice, and rectum were photographed. Scope In: 9:13:52 AM Scope Withdrawal Time 0 hours 6 minutes 35 seconds Scope Out: 9:30:41 AM Total Procedure Duration Time 0 hours 16 minutes 49 seconds Findings: The entire examined colon appeared normal on direct and retroflexion views. Impression: - The entire examined colon is normal on direct and retroflexion views. - No specimens collected. Recommendation: - Discharge patient to home. - Resume previous diet. - Continue present medications. - Repeat colonoscopy in 10 years for screening purposes. Procedure Code(s): --- Professional --- 00467, Colonoscopy, flexible; diagnostic, including collection of specimen(s) by brushing or washing, when performed (separate procedure) Diagnosis Code(s): --- Professional --- Z86.010, Personal history of colonic polyps CPT copyright 2021 [employer]. All rights reserved. The codes documented in this report are preliminary and upon coordinator of evaluation review may be revised to meet current compliance requirements. Yimi Ortega MD 09/07/2023 9:35:09 AM This report has been signed electronically. Number of Addenda: 0 Note Initiated On: 09/07/2023 9:07 AM
--- NOTE | 2023-09-07 09:37 | HP.PCM_ITS ---
HPI - General HPI Narrative REGINO BONILLA, is a 67 M who presents for surveillance colonoscopy. Patient said that he had his last colonoscopy 5 years ago and was told to repeat in 5 but does not remember what they found. It is likely that they found polyps that they recommended a 5-year follow-up. He has no family history of colon cancer and denies any abdominal pain or blood in his stool. [facility] Medical History (Updated 09/06/23 @ 08:46 by Dima Mares) ALS (amyotrophic lateral sclerosis) Anxiety Arthritis Bone spur of foot COPD (chronic obstructive pulmonary disease) CPAP (continuous positive airway pressure) dependence Former smoker Heartburn History of edema History of pain when walking Leg cramps Loss of hearing Marijuana use Neuropathy Raynaud disease Syncope Wears glasses Home Medications fluticasone propionate 50 mcg/actuation nasal spray,suspension 1 spray intranasal BID PRN nasal congestion 06/07/23 [History Last Taken Unknown] multivitamin (Daily Multi-Vitamin tablet) 1 tab PO DAILY 06/07/23 [History Last Taken 09/05/23] pregabalin 25 mg capsule 50 mg PO BID 06/07/23 [History Last Taken Unknown] turmeric 100 mg-carlos 150 mg-olive 50 mg-oreg 150 mg-capryl capsule 1 cap PO DAILY 06/07/23 [History Last Taken 09/05/23] amitriptyline 10 mg tablet 30 mg PO QHS 08/20/23 [History Last Taken Unknown] omega-3 fatty acids-fish oil 360 mg-1,200 mg capsule (Fish Oil) 1 cap PO DAILY 08/20/23 [History Last Taken 09/05/23] polyethylene glycol 3350 17 gram/dose oral powder (Miralax) 4 g PO DAILY PRN constipation 08/20/23 [History Last Taken Unknown] Allergy/AdvReac Type Severity Reaction Status Date / Time grass pollen Allergy runny nose Verified 09/07/23 08:26 Family History Father Diabetes ALYSSA (obstructive sleep apnea) Surgical History (Updated 08/20/23 @ 16:05 by Karley Dickerson) Hx of appendectomy Hx of colonoscopy Hx of LASIK Hx of left cataract extraction Hx of oral surgery Hx of right cataract extraction Social History (Updated 08/20/23 @ 16:06 by Karley Dickerson) household members: none current occupational status: retired Smoking Status: Former smoker alcohol intake: current alcohol intake frequency: a few times a week substance use type: does not use Past Medical/Surgical History Planned Operation Planned Operative Procedure/s: COLONOSCOPY Previous Hospitalizations/Surgeries HX Hospitalizations: No Any Problems With Anesthesia: No You/Your Family Experience Fever (Hyperthermia) With Anes: No Cholinesterase deficiency: No Cardiovascular Hx Hypertension: No Respiratory Hx Sleep Apnea: Yes CPAP: Yes (WEARS MOST NIGHTS) BIPAP: No Hx Respiratory Tract Infection/Cold (presently): No Result (for STOP score): Positive Smoking Status: Former smoker Neurological Does patient have nerve stimulator: No Miscellaneous Hx Cancer: No Recent Exposure to Contagious Disease: No Allergies grass pollen Allergy (Verified 09/07/23 08:26) runny nose Discharge After D/C, Where Do you Plan to Go: Return Home Vital Signs Vital Signs Vital Signs: 09/07/23 08:26 09/07/23 08:26 Temperature 97.2 F L Temperature Source Temporal Pulse Rate 90 Respiratory Rate 18 Respiratory Pattern Normal Blood Pressure 128/79 H Blood Pressure Mean 95 Blood Pressure Source Monitor Blood Pressure Position Semi-Fowlers Blood Pressure Location Left Arm Pulse Ox 99 Oxygen Delivery Method Room Air Weight Weight: 206 lb 9.17 oz Body Mass Index (BMI) 28.8 Physical Exam Const alert and oriented x3 HEENT normocephalic Eyes PERRL Resp normal respiratory effort and normal air movement Cardio regular rate and regular rhythm GI soft to palpation, non-tender and non-distended Extremity normal to inspection Assessment & Plan Assessment/Plan (1) Encounter for screening for malignant neoplasm of colon: PLAN: I explained endoscopy in detail to the patient. I explained the risks including but not limited to stroke or heart attack with anesthesia, perforation of the GI tract, bleeding, infection. I explained that any of these could necessitate further emergency surgery. The patient understands and all questions were answered sufficiently. The patient wishes to proceed with procedure. Yimi Ortega MD Pager: [facility] [address] [place] [address], [address] [place] [address] Office: Surgery Risks - Colonoscopy Risks Include but are not Limited To: Risks include but are not limited to: Bleeding, perforation requiring further surgery, inability to complete colonoscopy requiring barium enema.
[2023-09-07 09:40] VITALS: BP 128/79; BP 80/45; PULSE 67; RESP 16; O2SAT 100
[2023-09-07 09:45] VITALS: BP 104/63; BP 128/79; PULSE 68; RESP 16; O2SAT 100
[2023-09-07 09:50] VITALS: BP 106/64; BP 128/79; PULSE 60; RESP 16; TEMP 36.6; O2SAT 100
[2023-09-07 10:09] VITALS: BP 128/79
== END 2023-09-07 10:48 | disposition home or self-care (01) ==
LOC: EN 08:00 → AC 08:00
PROVIDERS: PCP Preventive Medicine Occupational Medicine; Referring Provider Preventive Medicine Occupational Medicine; Visit Provider Surgery
PROC: 0DJD8ZZ Inspection of Lower Intestinal Tract, Via Natural or Artificial Opening Endoscopic (ICD-10-PCS; CPT 45378; principal; 2023-09-07 09:10)
DX: Z12.11 Encounter for screening for malignant neoplasm of colon (principal); J44.9 Chronic obstructive pulmonary disease, unspecified; Z86.010 Personal history of colon polyps; Z87.891 Personal history of nicotine dependence
CPT/HCPCS: G0105; J7120; J2405

== ENCOUNTER → 2023-12-13 | Outpatient (CLI) | payer MEDICARE, BC, SELFPAY ==
--- NOTE | 2023-12-13 13:25 | ART_ITS ---
Reason For Study: LT Foot Ulcer Procedure A bilateral lower extremity continuous wave Doppler with analog waveform analysis,segmental pressures,and ankle brachial indexes without exercise. Left Segmental Pressures Left brachial= 117mmHg. Left posterior tibial artery = 148mmHg. Left dorsalis pedis artery = 145mmHg. Left digit = 112 mmHg. The left posterior tibial artery waveforms are triphasic. The left dorsalis pedis waveforms are triphasic. Right Segmental Pressures Right brachial= 117mmHg. Right posterior tibial artery = 149mmHg. Right dorsalis pedis artery = 150mmHg. Right digit = 101 mmHg. The right posterior tibial artery waveforms are triphasic. The right dorsalis pedis waveforms are triphasic. Indices The right ankle brachial index by the posterior tibial artery is 1.27. The right ankle brachial index by the dorsalis pedis is 1.28. The right digital-brachial index is 0.86. The left ankle brachial index by the posterior tibial artery is 1.26. The left ankle brachial index by the dorsalis pedis is 1.24. The left digital-brachial index is 0.96. VL/Lower Ext Art Exam w/o Exercis Interpretation Summary Right URI 1.28, normal. TBI and Doppler/PVR waveforms of the right leg normal a t rest. Left URI 1.26, normal. TBI and Doppler/PVR waveforms of the left leg normal at rest. Ordering Physician: Doug Diaz Referring Physician: Stephen Gomez Performed By: Luis Gilmore, RVT
== END | disposition home or self-care (01) ==
LOC: CVS 13:06
PROVIDERS: PCP Preventive Medicine Occupational Medicine; Referring Provider Podiatrist; Visit Provider Podiatrist
DX: L97.522 Non-pressure chronic ulcer of other part of left foot with fat layer exposed (principal); I73.9 Peripheral vascular disease, unspecified
CPT/HCPCS: 93923

== ENCOUNTER 2024-01-19 21:21 | Emergency (ER) | payer MEDICARE, BC, SELFPAY ==
[2024-01-19 21:22] VITALS: BP 119/75; PULSE 65; RESP 18; TEMP 36.6; O2SAT 97; BMI 29.3
--- NOTE | 2024-01-19 21:26 | RAD_ITS ---
STUDY: X-RAY - RIGHT HAND REASON FOR EXAM: Male, 68 years old. FOREIGN BODY TECHNIQUE: 3 view(s) of the hand. COMPARISON: None. FINDINGS: Normal radiocarpal articulation. Normal distal radioulnar joint. Normal visualized carpal bones. Normal carpal articulations Normal carpometacarpal articulation of the thumb. Normal second through fifth carpometacarpal joints. Normal metacarpi. Normal metacarpophalangeal joint of the thumb. Normal interphalangeal joint of the thumb. Normal proximal and distal phalanges of the thumb. Normal metacarpophalangeal joints of the second through fifth fingers. Normal proximal and distal interphalangeal joints of the second through fifth fingers. Normal phalanges of the second through fifth fingers. The soft tissue structures are unremarkable. RAD/Hand Min 3 Views IMPRESSION: Normal x-ray examination of the hand. Electronically Signed: Doug Garzon MD at 21:58 EDT ,
--- NOTE | 2024-01-19 22:51 | EX.ED.UPPERE ---
HPI History of Present Illness HPI Narrative: Patient presents with possible foreign body to his right index finger that occurred 2 days ago. Patient states he was cleaning a mower deck and was hit in the finger by a piece of metal. Patient states she thinks the piece of metal broke off into his finger. Patient states the pain has been persistent over the past 2 days. Patient describes his pain as burning. Patient states nothing makes it better nothing makes it worse. Patient denies any paresthesias or weakness. Patient states his tetanus is up-to-date. Chief Complaint: Foreign Body Informant: patient Occured/Mechanism Mechanism/Context: Yes puncture wound Onset/Context/Timing Onset: Days (2) Context: Sudden Onset Timing: Continuous Quality of Pain: Burning Location: Right index finger Worsened by: Nothing Relieved by: Nothing Associated Symptoms Associated Symptoms: Negative for Parasthesia, Weakness or Loss of Funtion Narrative Tetanus Immunization: <5 years [facility] Medical History Wears glasses ALS (amyotrophic lateral sclerosis) Bone spur of foot Loss of hearing Anxiety Marijuana use Arthritis Syncope Heartburn Former smoker COPD (chronic obstructive pulmonary disease) CPAP (continuous positive airway pressure) dependence Leg cramps History of edema History of pain when walking Raynaud disease Neuropathy Home Medications ?Medication ?Instructions ?Recorded ?Last Taken ?Type fluticasone propionate 50 1 spray intranasal BID PRN nasal 06/07/23 Unknown History mcg/actuation nasal congestion spray,suspension multivitamin (Daily Multi-Vitamin 1 tab PO DAILY 06/07/23 09/05/23 History tablet) turmeric 100 mg-carlos 150 1 cap PO DAILY 06/07/23 09/05/23 History mg-olive 50 mg-oreg 150 mg-capryl capsule amitriptyline 10 mg tablet 30 mg PO QHS 08/20/23 Unknown History omega-3 fatty acids-fish oil 360 1 cap PO DAILY 08/20/23 09/05/23 History mg-1,200 mg capsule (Fish Oil) polyethylene glycol 3350 17 4 g PO DAILY PRN constipation 08/20/23 Unknown History gram/dose oral powder (Miralax) cetirizine 10 mg tablet 10 mg PO DAILY PRN allergy symptoms 09/23/23 Unknown History pregabalin 100 mg capsule 100 mg PO BID 09/23/23 Unknown History cephalexin 500 mg capsule 500 mg PO Q6 #40 CAPSULES 01/19/24 Unknown Rx Allergy/AdvReac Type Severity Reaction Status Date / Time grass pollen Allergy runny nose Verified 01/19/24 21:24 Family History Father Diabetes ALYSSA (obstructive sleep apnea) Surgical History Hx of colonoscopy Hx of LASIK Hx of oral surgery Hx of right cataract extraction Hx of left cataract extraction Hx of appendectomy Social History household members: none current occupational status: retired Smoking Status: Former smoker Smokeless tobacco user: chewing tobacco alcohol intake: current alcohol intake frequency: a few times a week substance use type: does not use ROS ROS ED Constitutional Constitutional ED: Denies chills or fever(s) Eyes Eyes: Denies blurry vision or change in vision ENT ENT ED: Denies rhinorrhea or sore throat Cardiovascular Cardiovascular: Denies chest pain or palpitations Respiratory/Chest Respiratory/Chest: Denies cough or dyspnea Gastrointestinal Gastrointestinal: Denies nausea or vomiting Genitourinary Genitourinary ED: Denies dysuria or hematuria Musculoskeletal Musculoskeletal: Denies back pain or neck pain Integumentary Reports abscess; Denies rash Neurologic Neurologic: Denies headache(s) or weakness Allergic/Immunologic Allergic/Immunologic ED: Denies mouth swelling or urticaria EXAM Physical Exam Const Vital Signs: 01/19/24 21:22 Temperature 97.9 F Temperature Source Temporal Pulse Rate 65 Respiratory Rate 18 Blood Pressure 119/75 Blood Pressure Mean 89 Pulse Ox 97 Oxygen Delivery Method Room Air Positive well nourished and well developed General Appearance ED: well developed and NAD HEENT Reports moist mucous membranes Neck full ROM and supple Extremity Extremity Narrative: There is a small puncture wound noted over the radial aspect of the right index finger near the PIP joint. There is good range of motion of the MP, PIP, and DIP joints. There is no discharge or drainage. There is no purulent drainage noted. Sensation was intact to light touch in all digits. Capillary refill was less than 2 seconds in all digits. There is no tenderness over the flexor tendon. There is no fusiform swelling noted. There is no pain with passive extension. Neuro oriented x3, CN's II-XII intact bilaterally, moves all extremities, no focal motor deficits and no sensory deficits noted Sensorium / Orientation: alert Motor Exam: strength 5/5 throughout Psych mental status grossly normal MDM MDM MDM Narrative Medical decision making narrative: Differential diagnosis includes retained foreign body, occult fracture, and puncture wound. X-rays of the right hand will be obtained to assess for foreign body and occult fracture. Radiography Diagnostic Testing: Clinical Impression(s) from Imaging Studies Hand X-Ray 01/19/24 21:26 IMPRESSION: Normal x-ray examination of the hand. Electronically Signed: Doug Gazron MD at 21:58 EDT , X-rays of the right hand were obtained. There are 3 views. On my independent interpretation, there is no metallic foreign body noted. There is no acute fracture noted. There is no soft tissue swelling noted. Radiologist also interpreted the x-rays and agrees. Treatment and Re-Evaluation Narrative: Patient was advised of his findings. Patient was instructed use warm compresses to the area. Patient was instructed to follow-up with his primary care physician in 5 to 7 days. Patient was given a prescription for Keflex. Patient understood and was agreeable with the plan. All questions were answered. Discharge Plan Triage Chief Complaint: Foreign Body ED Provider: Raffaele Garcia Dx/Rx/DC Orders Clinical Impression: Puncture wound of right index finger without foreign body without damage to nail, Superficial abrasion Instructions: ED Puncture Wound (General) Prescriptions: New cephalexin 500 mg capsule 500 mg PO Q6 Qty: 40 0RF No Action cetirizine 10 mg tablet 10 mg PO DAILY PRN (Reason: allergy symptoms) Patient Comments: TAKE 1 TABLET BY MOUTH DAILY NEEDED FOR ALLERGY SYMPTOMS pregabalin 100 mg capsule 100 mg PO BID Patient Comments: Take 1 capsule twice a day by oral route. omega-3 fatty acids-fish oil [Fish Oil] 360-1,200 mg capsule 1 cap PO DAILY polyethylene glycol 3350 [Miralax] 17 gram/dose powder 4 g PO DAILY PRN (Reason: constipation) amitriptyline 10 mg tablet 30 mg PO QHS multivitamin [Daily Multi-Vitamin] Tablet 1 tab PO DAILY [id number]-[id number]-guecf-oreg-capry 100 mg-150 mg- 50 mg-150 mg capsule 1 cap PO DAILY fluticasone propionate 50 mcg/actuation spray,suspension 1 spray intranasal BID PRN (Reason: nasal congestion) Primary Care Provider: Stephen Gomez Referrals: Stephen Gomez DO [Primary Care Provider] - 5-7 Days Print Language: Urdu Disposition Disposition: Home, Self Care
[2024-01-19] MEDS: Cephalexin 500 MG Capsule PO (23:47)
== END 2024-01-19 23:53 | disposition home or self-care (01) ==
PROVIDERS: Emergency Provider Emergency Medicine; PCP Preventive Medicine Occupational Medicine; Visit Provider Emergency Medicine
DX: S61.230A Puncture wound without foreign body of right index finger without damage to nail, initial encounter (principal); J44.9 Chronic obstructive pulmonary disease, unspecified; S60.410A Abrasion of right index finger, initial encounter; W22.8XXA Striking against or struck by other objects, initial encounter; Y93.89 Activity, other specified; G62.9 Polyneuropathy, unspecified; Z79.899 Other long term (current) drug therapy; F17.220 Nicotine dependence, chewing tobacco, uncomplicated
CPT/HCPCS: 73130; 99282

== ENCOUNTER 2024-04-09 09:09 | Emergency (ER) | payer MEDICARE, BC, SELFPAY ==
[2024-04-09 09:10] VITALS: BP 139/64; PULSE 58; RESP 15; TEMP 35.8; O2SAT 99; BMI 27.8
--- NOTE | 2024-04-09 09:53 | EX.ED.DYSGE1 ---
HPI History of Present Illness Chief Complaint: Other, Pain/Inj Informant: patient Onset/Context/Timing Onset: Days Context: Gradual Onset Timing: Continuous Quality: Stabbing Location: Bilateral feet, right worse than left Worsened by: Nothing Relieved by: Bike riding Narrative Narrative: Patient presents with bilateral foot pain that has been getting progressively worse. Patient states it is worse on his right foot. Patient states he has a history of neuropathy. Patient states he has been taking ibuprofen and Tylenol with no relief. Patient states it does get better when he is able to ride his bike. Patient describes the pain as stabbing. Patient denies any trauma or injury. Patient does admit to some nausea. Patient also admits to a mild headache. Patient denies any fevers or chills. [facility] Medical History Wears glasses ALS (amyotrophic lateral sclerosis) Bone spur of foot Loss of hearing Anxiety Marijuana use Arthritis Syncope Heartburn Former smoker COPD (chronic obstructive pulmonary disease) CPAP (continuous positive airway pressure) dependence Leg cramps History of edema History of pain when walking Raynaud disease Neuropathy Home Medications ?Medication ?Instructions ?Recorded ?Last Taken ?Type fluticasone propionate 50 1 spray intranasal BID PRN nasal 06/07/23 Unknown History mcg/actuation nasal congestion spray,suspension multivitamin (Daily Multi-Vitamin 1 tab PO DAILY 06/07/23 09/05/23 History tablet) turmeric 100 mg-carlos 150 1 cap PO DAILY 06/07/23 09/05/23 History mg-olive 50 mg-oreg 150 mg-capryl capsule amitriptyline 10 mg tablet 30 mg PO QHS 08/20/23 Unknown History omega-3 fatty acids-fish oil 360 1 cap PO DAILY 08/20/23 09/05/23 History mg-1,200 mg capsule (Fish Oil) polyethylene glycol 3350 17 4 g PO DAILY PRN constipation 08/20/23 Unknown History gram/dose oral powder (Miralax) cetirizine 10 mg tablet 10 mg PO DAILY PRN allergy symptoms 09/23/23 Unknown History pregabalin 100 mg capsule 100 mg PO BID 09/23/23 Unknown History cephalexin 500 mg capsule 500 mg PO Q6 #40 CAPSULES 01/19/24 Unknown Rx hydrocodone-acetaminophen 5-325mg 1 tab PO Q6H PRN PRN Pain 3 days 04/09/24 Unknown Rx 5mg-325mg #10 TABLETS Allergy/AdvReac Type Severity Reaction Status Date / Time grass pollen Allergy runny nose Verified 04/09/24 09:11 Family History Father Diabetes ALYSSA (obstructive sleep apnea) Surgical History Hx of colonoscopy Hx of LASIK Hx of oral surgery Hx of right cataract extraction Hx of left cataract extraction Hx of appendectomy Social History household members: none current occupational status: retired Smoking Status: Former smoker Smokeless tobacco user: chewing tobacco alcohol intake: current alcohol intake frequency: a few times a week substance use type: does not use ROS ROS ED Constitutional Constitutional ED: Denies chills or fever(s) Eyes Eyes: Denies blurry vision or change in vision ENT ENT ED: Denies rhinorrhea or sore throat Cardiovascular Cardiovascular: Denies chest pain or palpitations Respiratory/Chest Respiratory/Chest: Denies cough or dyspnea Gastrointestinal Gastrointestinal: Reports diarrhea and nausea; Denies vomiting Genitourinary Genitourinary ED: Denies dysuria or hematuria Musculoskeletal Musculoskeletal: Reports neck pain; Denies back pain Integumentary Denies abscess or rash Neurologic Neurologic: Reports headache(s); Denies weakness Allergic/Immunologic Allergic/Immunologic ED: Denies mouth swelling or urticaria EXAM Physical Exam Const Vital Signs: 04/09/24 09:10 04/09/24 09:14 Temperature 96.4 F L Temperature Source Temporal Pulse Rate 58 L Respiratory Rate 15 Respiratory Effort Normal Respiratory Pattern Normal Blood Pressure 139/64 H Blood Pressure Mean 89 Pulse Ox 99 Oxygen Delivery Method Room Air Positive well nourished and well developed General Appearance ED: well developed and NAD HEENT Reports moist mucous membranes Neck supple and no JVD Resp normal respiratory effort and clear to auscultation bilaterally Cardio regular rate and regular rhythm GI non-tender and non-distended Palpation: soft Extremity Extremity Narrative: There is tenderness over the lateral aspect of the bilateral feet, worse on the right. It is mainly over the base of the fifth metatarsal. There is no edema or ecchymosis. There is no erythema or warmth noted. Pedal pulses are equal bilateral. Sensation was intact to light touch in all digits. Capillary refill was less than 2 seconds in all digits. Strength is 5/5 bilaterally in lower extremities. Neuro oriented x3, CN's II-XII intact bilaterally and no sensory deficits noted Sensorium / Orientation: alert Motor Exam: strength 5/5 throughout MDM MDM MDM Narrative Medical decision making narrative: Differential diagnosis includes neuropathy, infection, and inflammatory process. CBC will be obtained to assess for leukocytosis. Sed rate and CRP will be obtained to assess for inflammatory markers. Lab Data Attestation: I reviewed the patient's lab results. Lab results narrative: CBC was reviewed and was within normal limits. Sed rate was reviewed and was normal at 2. CRP was reviewed and was normal at less than 2.90. Labs: Laboratory Results - last 24 hr 04/09/24 11:07 WBC 4.6 RBC 4.48 L Hgb 14.5 Hct 42.9 MCV 95.8 H MCH 32.4 H MCHC 33.8 RDW Std Deviation 46.6 H RDW Coeff of Beatrice 13.2 Plt Count 190 MPV 10.4 Immature Gran % (Auto) 0.200 Neut % (Auto) 64.7 Lymph % (Auto) 25.3 [place] % (Auto) 8.1 Eos % (Auto) 1.3 Baso % (Auto) 0.4 Absolute Neuts (auto) 2.9 Absolute Lymphs (auto) 1.15 Nucleated RBC % 0 ESR 2 C-React Prot Ext Range < 2.90 Treatment and Re-Evaluation :: Patient was given a dose of Clare here. Patient was advised of his findings. Patient was given a prescription for a short course of Clare. 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 Patient understood and was agreeable with the plan. All questions were answered. Discharge Plan Triage Chief Complaint: Other, Pain/Inj ED Provider: Raffaele Garcia Dx/Rx/DC Orders Clinical Impression: Neuropathy, Neuropathy of both feet Instructions: ED Neuropathy, Peripheral Prescriptions: New hydrocodone-acetaminophen 5-325 mg tablet 1 tab PO Q6H PRN PRN (Reason: Pain) 3 Days Qty: 10 0RF No Action cetirizine 10 mg tablet 10 mg PO DAILY PRN (Reason: allergy symptoms) Patient Comments: TAKE 1 TABLET BY MOUTH DAILY NEEDED FOR ALLERGY SYMPTOMS pregabalin 100 mg capsule 100 mg PO BID Patient Comments: Take 1 capsule twice a day by oral route. omega-3 fatty acids-fish oil [Fish Oil] 360-1,200 mg capsule 1 cap PO DAILY polyethylene glycol 3350 [Miralax] 17 gram/dose powder 4 g PO DAILY PRN (Reason: constipation) amitriptyline 10 mg tablet 30 mg PO QHS multivitamin [Daily Multi-Vitamin] Tablet 1 tab PO DAILY lwrxusfl-qdrz-wxrhz-oreg-capry 100 mg-150 mg- 50 mg-150 mg capsule 1 cap PO DAILY fluticasone propionate 50 mcg/actuation spray,suspension 1 spray intranasal BID PRN (Reason: nasal congestion) cephalexin 500 mg capsule 500 mg PO Q6 Qty: 40 0RF Primary Care Provider: Stephen Gomez Referrals: Doug Diaz DPM [Med Staff - Active Staff] - 3-5 Days Stephen Gomez DO [Primary Care Provider] - 5-7 Days Print Language: Singaporean Disposition Disposition: Home, Self Care
[2024-04-09] MEDS: HYDROcodone Bitartrate/Apap 5/325 Tablet PO (11:02)
[2024-04-09 11:21] LABS: Erythrocyte Sedimentation Rate 2 mm/hr (0-20)
[2024-04-09 11:23] LABS: Absolute Lymphocyte Count 1.15 X10^3/uL (0.83-4.51); Absolute Neutrophil Count 2.9 X10^3/uL (2.0-7.7); Basophil# 0.02 X10^3/uL; Basophil% 0.4 % (0-1); Eosinophil# 0.06 X10^3/uL; Eosinophils% 1.3 % (0-5); Hematocrit 42.9 % (40-54); Hemoglobin 14.5 g/dL (13.0-16.5); Lymphocyte # 1.15 X10^3/ul (0.83-4.51); Lymphocyte % 25.3 % (19-41); Mean Corp Hgb Conc 33.8 g/dL (32-36); Mean Corpuscular Hgb 32.4 pg (27.0-32.0); Mean Corpuscular Volume 95.8 fL (80-94); Mean Platelet Vol. 10.4 fl (6.2-12.0); Monocyte# 0.37 X10^3/uL; Monocyte% 8.1 % (0-10); NRBC Flagged by Analyzer 0 % (0-5); Neutrophil # 2.94 X10^3/uL (2.7-7.7); Neutrophil % 64.7 % (47-70); Platelet Count 190 K/mm3 (150-450); RBC Distribution Width CV 13.2 % (11.6-14.6); RBC Distribution Width SD 46.6 fl (35.1-43.9); Red Blood Count 4.48 M/mm3 (4.6-6.2); White Blood Count 4.6 K/mm3 (4.4-11.0)
[2024-04-09 11:35] LABS: CRP < 2.90 mg/L (0.0-3.0)
--- NOTE | 2024-04-09 12:24 | ED.RN ---
Patient called out for update. Patient made aware that all tests are back and we are waiting on the doctor to reeval and come in and talk to him.
== END 2024-04-09 13:09 | disposition home or self-care (01) ==
PROVIDERS: Emergency Provider Emergency Medicine; PCP Preventive Medicine Occupational Medicine; Visit Provider Emergency Medicine
DX: G62.9 Polyneuropathy, unspecified (principal); J44.9 Chronic obstructive pulmonary disease, unspecified; M54.2 Cervicalgia; R51.9 Headache, unspecified; R19.7 Diarrhea, unspecified; R11.0 Nausea; F17.220 Nicotine dependence, chewing tobacco, uncomplicated; Z79.899 Other long term (current) drug therapy
CPT/HCPCS: 85025; 85652; 86140; 99283

== ENCOUNTER 2024-05-30 08:45 | Outpatient (RCR) | payer MEDICARE, BC, SELFPAY ==
[2024-05-23 08:26] VITALS: BP 105/61; PULSE 65; RESP 18; TEMP 35.9; BMI 25.7
--- NOTE | 2024-05-23 09:38 | PCM.WC.HP ---
History of Present Illness Date of Service: 06/08/24 Chief Complaint: Right second toe ulcer History of Wound: 66-year-old male presents to the wound healing center for chronic toe ulcer. He applies hydrogel daily. He wears boots that have more toe space. He does have rest paresthesias up to his ankle level. He denies odor, redness, fever, chill, nausea, vomiting. He denies known drainage. He relates he had a vascular test and he will follow up with Dr. Mark to discuss his plan on November 05. He denies redness or odor to the foot. He denies foot drainage. [facility] Medical History Wears glasses ALS (amyotrophic lateral sclerosis) Bone spur of foot Loss of hearing Anxiety Marijuana use Arthritis Syncope Heartburn Former smoker COPD (chronic obstructive pulmonary disease) CPAP (continuous positive airway pressure) dependence Leg cramps History of edema History of pain when walking Raynaud disease Neuropathy Home Medications ?Medication ?Instructions ?Recorded ?Last Taken ?Type fluticasone propionate 50 1 spray intranasal BID PRN nasal 06/07/23 Unknown History mcg/actuation nasal congestion spray,suspension multivitamin (Daily Multi-Vitamin 1 tab PO DAILY 06/07/23 09/05/23 History tablet) turmeric 100 mg-carlos 150 1 cap PO DAILY 06/07/23 09/05/23 History mg-olive 50 mg-oreg 150 mg-capryl capsule amitriptyline 10 mg tablet 30 mg PO QHS 08/20/23 Unknown History omega-3 fatty acids-fish oil 360 1 cap PO DAILY 08/20/23 09/05/23 History mg-1,200 mg capsule (Fish Oil) polyethylene glycol 3350 17 4 g PO DAILY PRN constipation 08/20/23 Unknown History gram/dose oral powder (Miralax) cetirizine 10 mg tablet 10 mg PO DAILY PRN allergy symptoms 09/23/23 Unknown History pregabalin 100 mg capsule 100 mg PO BID 09/23/23 Unknown History cephalexin 500 mg capsule 500 mg PO Q6 #40 CAPSULES 01/19/24 Unknown Rx hydrocodone-acetaminophen 5-325mg 1 tab PO Q6H PRN PRN Pain 3 days 04/09/24 Unknown Rx 5mg-325mg #10 TABLETS gabapentin 400 mg capsule 400 mg PO DAILY 05/23/24 Unknown History Allergy/AdvReac Type Severity Reaction Status Date / Time grass pollen Allergy runny nose Verified 04/09/24 09:11 Family History Father Diabetes ALYSSA (obstructive sleep apnea) Surgical History Hx of colonoscopy Hx of LASIK Hx of oral surgery Hx of right cataract extraction Hx of left cataract extraction Hx of appendectomy Social History household members: none current occupational status: retired Smoking Status: Never smoker Smokeless tobacco user: chewing tobacco alcohol intake: current alcohol intake frequency: a few times a week substance use type: does not use Vital Signs Vital Signs Vital Signs: 05/23/24 08:26 Temperature 96.6 F L Temperature Source Temporal Pulse Rate 65 Respiratory Rate 18 Blood Pressure 105/61 Blood Pressure Mean 75 Blood Pressure Source Monitor Blood Pressure Position Sitting Blood Pressure Location Right Arm Oxygen Delivery Method Room Air Weight Weight: 86.183 kg Body Mass Index (BMI) 25.7 Physical Exam Narrative Vascular: Dorsalis pedis posterior tibial pulses palpable 2 out of 4 to bilateral lower extremity. Some atrophic skin changes noted. Varicosities noted to medial lateral ankle bilaterally. Neurologic: Light touch protective sensation diminished bilateral feet. Dermatologic: Full-thickness ulceration to the medial plantar hallucal IPJ with periwound callus formation. Full-thickness ulceration to the right foot fifth metatarsal styloid process with diffuse callus formation predebridement. Postdebridement wounds demonstrate clean granular bases with no signs of deep probing undermining or infection. Musculoskeletal: Less than 10 degrees dorsiflexion left hallux first MPJ contributing to wound formation of the hallucal IPJ. Right foot prominent styloid process noted. Const alert and oriented x3 Debridement Note Debridement Note Post-Debridement Measurements and Additional Note: Post-Debridement Measurements/Treatment - Nurse 1 - General Ulcer Assessment Start: 05/23/24 08:22 Freq: Status: Active Protocol: DON.LOWEXT Activity Type Activity Date Activity User E-sign Co-sign Detail Recorded Client Recorded Date Recorded By Document 05/23/24 08:26 DS [id number] 05/23/24 08:38 DS 05/23/24 08:26 WC - Today's Visit Information Type of service Follow-up Visit (Physician/AIRCRAFT ENGINE SPECIALIST ) Arrival Mode Ambulatory Patient Identification Verified (Name & Yes ) Patient Requires Transmission-Based No Precautions Safety Precautions Fall Prevention Height and Weight Height 6 ft Weight 86.183 kg Weight in Pounds 190.0 lbs Weight Measurement Method Estimated by Patient Body Mass Index (BMI) 25.7 BMI Classification Overweight BSA - Марина 2.08 Vital Signs Temperature (97.8 F-99.1 F) 96.6 F L Temperature Source Temporal Pulse Rate (60-100) 65 Pulse Location Monitor Respiratory Rate (12-18) 18 Respiratory rate source Observation Oxygen Delivery Method Room Air Blood Pressure (90/60-120/80) 105/61 Blood Pressure Mean 75 Source Monitor Position Sitting Blood Pressure Location Right Arm History Since Last Visit- (Skip if this is Patient's initial visit) Left Footwear Regular Shoe Right Footwear Regular Shoe Pain Scale: 0-10 Numeric Is Patient Pain Free? No b/l feet -Description Burning -Intensity 7 -Duration (hours) Chronic -Pain Behavior No Change in Behavior -Alleviating Factors/Interventions None Lower Extremity Assessment/ Foot Assessment/ Toe Nail Assessment Left -Extremity Color Pale -Hair Growth on Legs No -Hair Growth on Toes No -Temperature of Extremity Cold -Capillary Refill Less than 3 Seconds -Thick Yes -Discolored Yes -Deformed No -Improper Length & Hygeine No Right -Extremity Color Pale -Hair Growth on Legs No -Hair Growth on Toes No -Temperature of Extremity Cold -Capillary Refill Less than 3 Seconds -Thick Yes -Discolored Yes -Deformed No -Improper Length & Hygeine No Communication Assessment Preferred language Kazakh Rehabilitation Technician Required No Able to Read Yes Able to Write Yes Right Hearing Abillity Normal Left Hearing Abillity Normal Visual Assistive Devices Glasses Teaching Assessment Preferences Verbal,Written, Demonstration Barriers to Learning None Readiness To Learn Good Willingness to Engage in Self Management Med Activies Readiness to Engage in Self Management Med Activities Anxiety Level Anxious Cooperation Cooperative Perception Coherent Interest in Health Problem Asks Questions Education Importance Acknowledges Need Does Patient Smoke tobacco or other Yes substances Smoking Status Never smoker Is Patient Diabetic No Functional Assessment Recent Decline in Ability to Perform Denies Any Declines Assistive Device With Patient N/A Culture/Episcopal/Band Manager Cultural/Episcopal Needs that may affect No Treatment Plan Teaching: Wound Center *Welcome to the Wound Center -Person Taught Patient -Teaching Method Discussion -Response to teaching Verbalize Understanding WC - Nurse 1 - General Ulcer Measurement Start: 05/23/24 08:22 Freq: Status: Active Protocol: Activity Type Activity Date Activity User E-sign Co-sign Detail Recorded Client Recorded Date Recorded By Document 05/23/24 08:44 DS [id number] 05/23/24 08:54 DS 05/23/24 08:44 Wound Center Nurse 1 #5 Left Great toe -Current Size (cm) - Length 0.1 -Current Size (cm) - Width 0.1 -Current Size (cm) - Depth 0.1 -Total Square Cm 0.01 -Date of Last Picture (Recall this 05/23/24 field) -Photo Taken Yes -Tunneling No -Undermining/Tunneling No -Circular Undermining No -Exudate Amt None Present -Texture (Rocio-wound Skin Appearance) Assessed,Callus -Moisture (Rocio-wound Skin Appearance) Assessed -Color (Rocio-wound Skin Appearance) Assessed -Temperature (Rocio-wound Skin No Abnormality Appearance) (Pt Warm) -Tenderness on Palpation (Rocio-wound No Skin Appearance) -Ulcer Cleansing Soap and Water -Anesthetic Used 5% Lidocaine Gel DON - Nurse 2 - General Ulcer CM Notes Start: 05/23/24 08:22 Freq: Status: Active Protocol: Activity Type Activity Date Activity User E-sign Co-sign Detail Recorded Client Recorded Date Recorded By Document 05/23/24 09:08 [email or web address] [id number] 05/23/24 09:22 JF 05/23/24 09:08 Wound Center Nurse 2 6-right lateral foot -Time 09:19 -Correct Patient Yes -Correct Side, Site, Position Yes -Correct Procedure Yes -Procedure Performed Yes -Type of Procedure Debridement -Clinical Debridement Subcutaneous -Tissue Removed Subcutaneous -Post Debridement (cm) - Length 1.0 -Post Debridement (cm) - Width 1.0 -Post Debridement (cm) - Depth 0.1 -Total Square (Post) (cm) 1.00 -Area of Debridement (cm) - Length 1.0 -Area of Debridement (cm) - Width 1.0 -Total Square (Area) (cm) 1.00 -Tunneling No -Undermining/Tunneling No -Circular Undermining No -Wound/Ulcer Outcome Not Healed -Ulcer Cleansing Rinsed/ Irrigated with Saline -Foul Odor after Cleansing No -Bioengineered Tissue No -Bleeding Controlled with Pressure -Treatment Response Procedure Tolerated Well -Offloading No -Debridement - Subq, 1st 20sq cm Yes #5 Left Great toe -Time 09:12 -Correct Patient Yes -Correct Side, Site, Position Yes -Correct Procedure Yes -Procedure Performed Yes -Type of Procedure Debridement -Clinical Debridement Subcutaneous -Tissue Removed Subcutaneous -Post Debridement (cm) - Length 1.4 -Post Debridement (cm) - Width 1.5 -Post Debridement (cm) - Depth 0.1 -Total Square (Post) (cm) 2.10 -Area of Debridement (cm) - Length 1.4 -Area of Debridement (cm) - Width 1.5 -Total Square (Area) (cm) 2.10 -Tunneling No -Undermining/Tunneling No -Circular Undermining No -Wound/Ulcer Outcome Not Healed -Ulcer Cleansing Rinsed/ Irrigated with Saline -Foul Odor after Cleansing No -Bioengineered Tissue No -Bleeding Controlled with Pressure -Treatment Response Procedure Tolerated Well -Offloading Yes -Type of Offloading Surgical Shoe -Debridement - Subq, 1st 20sq cm Yes Pain Scale: 0-10 Numeric Is Patient Pain Free? Yes Assessment/Plan Assessment/Plan (1) Other hereditary and idiopathic neuropathies: CODE(S): G60.8 - Other hereditary and idiopathic neuropathies PLAN: Exam performed. Reviewed arterial studies, within normal limits. Will request nerve conduction and EMG study which was performed at [facility] to delineate cause of underlying neuropathy. Reviewed previous providers notes, Dr. Baer. Patient seemingly has difficulty with working memory and visit today. Today the left hallux and right fifth metatarsal styloid wound was excisionally debrided using a #15 blade of all nonviable tissue down to including the level of subcutaneous tissue without incident. Topical anesthesia was used. Hemostasis obtained with light compression. Patient tolerated procedure well. Pre and postdebridement measurements documented nursing notes. Will plan for Betadine paint dry sterile dressing to bilateral foot wounds. Will offload left foot wound in a surgical shoe. Ordered additional lab work to evaluate for possible vitamin deficiency or any other metabolic issues contributing to delayed wound healing. Discussed possible hallucal IPJ arthroplasty left foot if there is any delays in healing. Follow-up in 1 week. Counseled patient on signs symptoms of infection, patient will observe for these. If they are noticed he will contact our office or present to ED. (2) Non-pressure chronic ulcer of other part of left foot with fat layer exposed: CODE(S): L97.522 - Non-pressure chronic ulcer of other part of left foot with fat layer exposed
[2024-05-23 15:54] LABS: Vitamin B12 508 pg/mL (211-911)
[2024-05-23 16:11] LABS: Hematocrit 38.8 % (40-54); Hemoglobin 13.5 g/dL (13.0-16.5); Mean Corp Hgb Conc 34.8 g/dL (32-36); Mean Corpuscular Hgb 32.8 pg (27.0-32.0); Mean Corpuscular Volume 94.2 fL (80-94); Mean Platelet Vol. 11.1 fl (6.2-12.0); Platelet Count 221 K/mm3 (150-450); RBC Distribution Width SD 44.6 fl (35.1-43.9); Red Blood Count 4.12 M/mm3 (4.6-6.2); White Blood Count 5.5 K/mm3 (4.4-11.0)
[2024-05-23 16:22] LABS: Erythrocyte Sedimentation Rate 16 mm/hr (0-20)
[2024-05-23 19:09] LABS: ALB/GLOB Ratio 1.2 RATIO (0.9-2.4); AST(SGOT) 20 U/L (15-37); Alanine Aminotransfer ALT/SGPT 29 U/L (16-61); Albumin, Serum 3.9 g/dL (3.2-5.0); Alkaline Phosphatase 81 U/L (45-117); Anion Gap 5 (5-15); BUN 21 mg/dL (7-18); BUN/Creat Ratio 28.5 RATIO (10-20); CRP 4.42 mg/L (0.0-3.0); Chloride 109 mmol/L (98-107); Creatinine, Serum 0.74 mg/dL (0.70-1.30); EST Glomerular Filtration Rate 112 mL/min (>60); Est Glom Filt Rate - Afr Amer 136 mL/min (>60); Globulin 3.2 g/dL (2.2-4.2); Glucose 86 mg/dL (74-106); Protein, Total 7.1 g/dL (6.4-8.2); Sodium Level 140 mmol/L (136-145)
[2024-05-25 12:09] LABS: Prealbumin 17 mg/dL (10-36)
[2024-05-30 09:31] VITALS: BP 125/77; PULSE 80; RESP 16; TEMP 36.5; BMI 25.7
[2024-05-31 15:08] LABS: VITAMIN B6 25.8 ug/L (3.4-65.2)
== END 2024-06-01 23:59 | disposition home or self-care (01) ==
LOC: WC 08:45
PROVIDERS: PCP Preventive Medicine Occupational Medicine; Referring Provider Preventive Medicine Occupational Medicine; Visit Provider Podiatrist
DX: L97.522 Non-pressure chronic ulcer of other part of left foot with fat layer exposed (principal); G12.21 Amyotrophic lateral sclerosis; J44.9 Chronic obstructive pulmonary disease, unspecified; G60.8 Other hereditary and idiopathic neuropathies; Z79.899 Other long term (current) drug therapy; F17.220 Nicotine dependence, chewing tobacco, uncomplicated
CPT/HCPCS: 11042; 36415; 80053; 82607; 84134; 84207; 85027; 85652; 86140; 99213; 99214; G0463

== ENCOUNTER 2024-06-02 10:40 | Emergency (ER) | payer MEDICARE, BC, SELFPAY ==
[2024-06-02 10:40] VITALS: BP 113/78; PULSE 63; RESP 18; TEMP 36.5; O2SAT 100; BMI 26.2
--- NOTE | 2024-06-02 11:26 | EDS_ITS ---
HPI History of Present Illness Chief Complaint: General Illness Narrative Narrative: Patient is a 68-year-old male with history of type 2 diabetes neuropathy who presents to the emergency department for multiple symptoms. Patient states that he has had a headache for 6 months on and off, however is getting worse, he has seen his PCP regarding this. Patient also states that he has been having some nasal congestion, some facial pain and thinks he might have acute sinusitis. Denies any fever chills nausea or vomiting. Denies any cough, neurological symptoms. [facility] Medical History (Updated 06/02/24 @ 12:25 by FABI Goodrich) Wears glasses Bone spur of foot Loss of hearing Anxiety Marijuana use Arthritis Syncope Heartburn Former smoker COPD (chronic obstructive pulmonary disease) CPAP (continuous positive airway pressure) dependence Leg cramps History of edema History of pain when walking Raynaud disease Neuropathy Home Medications ?Medication ?Instructions ?Recorded ?Last Taken ?Type fluticasone propionate 50 1 spray intranasal BID PRN nasal 06/07/23 Unknown History mcg/actuation nasal congestion spray,suspension multivitamin (Daily Multi-Vitamin 1 tab PO DAILY 06/07/23 09/05/23 History tablet) turmeric 100 mg-carlos 150 1 cap PO DAILY 06/07/23 09/05/23 History mg-olive 50 mg-oreg 150 mg-capryl capsule omega-3 fatty acids-fish oil 360 1 cap PO DAILY 08/20/23 09/05/23 History mg-1,200 mg capsule (Fish Oil) polyethylene glycol 3350 17 4 g PO DAILY PRN constipation 08/20/23 Unknown Hi story gram/dose oral powder (Miralax) pregabalin 100 mg capsule 100 mg PO BID 09/23/23 Unknown History gabapentin 400 mg capsule 400 mg PO DAILY 05/23/24 Unknown History hydroxyzine pamoate 25 mg capsule 25 mg PO TID PRN itching #20 caps 06/02/24 Unknown Rx (Vistaril) Allergy/AdvReac Type Severity Reaction Status Date / Time grass pollen Allergy runny nose Verified 06/02/24 10:43 Family History Father Diabetes ALYSSA (obstructive sleep apnea) Surgical History Hx of colonoscopy Hx of LASIK Hx of oral surgery Hx of right cataract extraction Hx of left cataract extraction Hx of appendectomy Social History household members: none current occupational status: retired Smoking Status: Never smoker second hand exposure: No alcohol intake: current alcohol intake frequency: a few times a week details: stopped drinking one year ago substance use type: does not use what type of physical activity do you participate in: walking and bicycling anam/pentecostal: Anglican ROS ROS ED ROS Narrative Constitutional: Negative for fever, chills, weight loss, weakness Eyes: Negative for vision loss, vision change, double vision ENT: Negative for any sore throat,. Positive for ear pain, congestion Cardiovascular: Negative for any chest pain, tightness, palpitations Respiratory: Negative for any cough, sputum production, hemoptysis, dyspnea, dyspnea on exertion, orthopnea Gastrointestinal: Negative for any abdominal pain, nausea, vomiting, constipation, blood in stool, blood in vomit. Positive diarrhea : Negative for any urinary frequency, dysuria, retention, blood in urine Muscle skeletal: Negative for any neck pain, back pain Neurological: Negative for any syncope, dizziness. Positive for headache Skin: Negative for any rashes, itching, abrasions, lacerations Psychiatric: Negative for any depression, anxiety, stress, suicidal ideation, homicidal ideation Hematologic: Negative for any excessive bruising, easy bleeding EXAM Physical Exam Narrative Exam Narrative: Vital signs reviewed. HEET: Head normocephalic atraumatic, TMs clear bilaterally. Posterior pharynx is clear, moist mucous membranes. Nares clear bilaterally. Slight pain in the maxillary, frontal sinuses. No drainage noted. Neck: Supple with no lymphadenopathy or tenderness. No signs of meningismus. Cardiac: Regular rate and rhythm no murmurs gallops or rubs, equal peripheral pulses bilaterally. Respiratory: Lungs clear to auscultation bilaterally. No chest tenderness. Abdomen: Soft, nontender, nondistended. No abdominal bruit or pulsatile masses. No hepatosplenomegaly Extremities: No peripheral edema, no signs of gross trauma or deformity. Active full range of motion of all extremities. Neuro: Cranial nerves II through XII intact, no focal neurological deficits. Skin: Clean dry and intact with no rash, purpura, petechiae, vesicles or pustules. Backs/flank: No CVA tenderness, no midline spinal tenderness, no deformity. Psych: Normal mood and affect. No SI, HI or acute psychosis. Const Vital Signs: 06/02/24 10:40 Temperature 97.7 F L Temperature Source Oral Pulse Rate 63 Respiratory Rate 18 Blood Pressure 113/78 Blood Pressure Mean 89 Pulse Ox 100 Oxygen Delivery Method Room Air Positive well nourished and well developed General Appearance ED: well developed [facility] MDM Radiography Diagnostic Testing: Clinical Impression(s) from Imaging Studies Brain CT 06/02/24 11:37 IMPRESSION: Small vessel ischemia. Electronically Signed: Ankita Lopez MD at 12:06 EDT , Treatment and Re-Evaluation :: Differential diagnosis includes however is not limited to: Acute sinusitis, CVA, TIA, intracranial bleeding, rhinosinusitis, viral syndrome Patient appears generally well, vital signs are stable, patient is nontoxic- appearing. Presenting to the emergency department for multiple complaints. Sinus congestion, facial pain, headache, diarrhea. Physical examination is consistent with more of a viral-like illness. There is no red flag signs. CT scan of the brain will be obtained, as well as a COVID-19 influenza and RSV. All radiologic examinations were read, reviewed by the emergency department attending. From these reads, a plan of care will be put in place. Patient CT scan the brain was unremarkable. COVID-19 influenza RSV was all negative. At this time, after speak with the patient, patient does have a lot of stress, is having difficulty sleeping, this could be related to a tension headache. At this time, patient be treated with Vistaril, he will continue following up with his PCP. He is happy with this plan of care, instructed return for any worsening symptoms, stable for discharge. Discharge Plan Triage Chief Complaint: General Illness ED Midlevel Provider: Howard Knowles ED Provider: Doug Lopez Dx/Rx/DC Orders Clinical Impression: Acute tension headache, Anxiety Instructions: Boosting Your Mental Health, ED Anxiety Reaction, ED Headache, Tension Prescriptions: New hydroxyzine pamoate [Vistaril] 25 mg capsule 25 mg PO TID PRN (Reason: itching) Qty: 20 0RF No Action pregabalin 100 mg capsule 100 mg PO BID Patient Comments: Take 1 capsule twice a day by oral route. omega-3 fatty acids-fish oil [Fish Oil] 360-1,200 mg capsule 1 cap PO DAILY polyethylene glycol 3350 [Miralax] 17 gram/dose powder 4 g PO DAILY PRN (Reason: constipation) multivitamin [Daily Multi-Vitamin] Tablet 1 tab PO DAILY [id number] 100 mg-150 mg- 50 mg-150 mg capsule 1 cap PO DAILY fluticasone propionate 50 mcg/actuation spray,suspension 1 spray intranasal BID PRN (Reason: nasal congestion) gabapentin 400 mg capsule 400 mg PO DAILY Primary Care Provider: Stephen Gomez Referrals: Stephen Gomez DO [Primary Care Provider] - Activity Restrictions/Additional Instructions: Please follow-up outpatient Print Language: Faroese Disposition Disposition: Home, Self Care Discharge Date/Time: 06/02/24 12:32
--- NOTE | 2024-06-02 11:37 | CT_ITS ---
INDICATION: headache EXAMINATION: CT BRAIN - CT Head or Brain W/O Contrast Injection TECHNIQUE: Multiple axial images were obtained of the head without intravenous contrast. The protocol utilizes one or more of the following dose reduction techniques: automated exposure control, adjustment of mA and/or kV according to patient size,and/or use of iterative reconstruction technique. IV Contrast dosage and agent: None. RADIATION DOSAGE (If Supplied By Facility): CTDIvol = ( 44.99 ) mGy, DLP = ( 863.60 ) mGycm COMPARISON: September 29, 2021 FINDINGS: BRAIN PARENCHYMA: No intra- or extra-axial hemorrhage. There are patchy foci of low attenuation within the white matter of the cerebral hemispheres, a nonspecific finding most commonly reflecting small vessel ischemia. No evidence of acute infarct. No intracranial mass or mass effect. There is preservation of the hawkins/white matter interface. Posterior fossa structures are unremarkable. CSF SPACES: Appropriate for age. No hydrocephalus. Basal cisterns are patent. CALVARIUM, SKULL BASE, PARANASAL SINUSES AND MASTOID AIR CELLS: There are round low-attenuation foci within the right maxillary sinus may reflect mucous retention cysts or polyps. No discrete lytic or blastic abnormalities. ORBITS: Both globes, extraocular muscles, optic nerves and retrobulbar fat appear unremarkable. ASPECTS Score for Acute Strokes: 10 CT/Brain/Head without Contrast IMPRESSION: Small vessel ischemia. Electronically Signed: Ankita Lopez MD at 12:06 EDT ,
== END 2024-06-02 12:32 | disposition home or self-care (01) ==
PROVIDERS: Emergency Provider Emergency Medicine; PCP Preventive Medicine Occupational Medicine; Visit Provider Emergency Medicine
DX: G44.209 Tension-type headache, unspecified, not intractable (principal); J44.9 Chronic obstructive pulmonary disease, unspecified; E11.40 Type 2 diabetes mellitus with diabetic neuropathy, unspecified; F41.9 Anxiety disorder, unspecified; R09.81 Nasal congestion; R19.7 Diarrhea, unspecified; Z11.52 Encounter for screening for COVID-19; Z79.899 Other long term (current) drug therapy; Z87.891 Personal history of nicotine dependence
CPT/HCPCS: 70450; 87631; 99282; A4216

== ENCOUNTER → 2024-06-12 | Outpatient (CLI) | payer MEDICARE, BC, SELFPAY | END | disposition home or self-care (01) | LOC: MRI 11:31 | PROVIDERS: PCP Preventive Medicine Occupational Medicine; Referring Provider Psychiatry & Neurology Neurology; Visit Provider Psychiatry & Neurology Neurology | DX: R41.89 Other symptoms and signs involving cognitive functions and awareness (principal) | CPT/HCPCS: 70551 ==

== ENCOUNTER 2024-06-13 10:30 | Outpatient (RCR) | payer MEDICARE, BC, SELFPAY ==
[2024-06-02 00:53] VITALS: BP 125/77; PULSE 80; RESP 16; TEMP 36.5; BMI 25.7
[2024-06-06 08:54] VITALS: BP 133/72; PULSE 84; RESP 18; TEMP 36.2; BMI 25.7
--- NOTE | 2024-06-06 09:09 | PN.PCM_ITS ---
History of Present Illness Date of Service: 05/30/24 Chief Complaint: Right second toe ulcer History of Wound: 66-year-old male presents to the wound healing center for chronic toe ulcer. He applies hydrogel daily. He wears boots that have more toe space. He does have rest paresthesias up to his ankle level. He denies odor, redness, fever, chill, nausea, vomiting. He denies known drainage. He relates he had a vascular test and he will follow up with Dr. Mark to discuss his plan on November 05. He denies redness or odor to the foot. He denies foot drainage. Objective Data Objective Data Vital Signs: Vital Signs Temp Pulse Resp BP 97.1 F L 84 18 133/72 H 06/06/24 08:54 06/06/24 08:54 06/06/24 08:54 06/06/24 08:54 Weight: 86.183 kg Body Mass Index (BMI) 25.7 Physical Exam Narrative Neurovascular status unchanged. Full-thickness wound to plantar lateral foot at the plantar fifth metatarsal base. Full-thickness wound left plantar medial hallux. No deep signs of infection. Predebridement there is a hyperkeratotic rim. Otherwise postdebridement wound demonstrates clean granular base with clean skin edges and no signs of infection. There is a prominent fifth metatarsal base to bilateral feet causing callusing and wound formation. There is also hallux rigidus to the left foot contributing to the hallux wound formation. 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 ) Arrival Mode Ambulatory Transfer Assistance None Patient Identification Verified (Name & Yes ) Patient Requires Transmission-Based No Precautions Height and Weight Body Mass Index (BMI) 25.7 BMI Classification Overweight Vital Signs Temperature (97.8 F-99.1 F) 97.1 F L Temperature Source Temporal Pulse Rate (60-100) 84 Pulse Location Monitor Respiratory Rate (12-18) 18 Respiratory rate source Observation Blood Pressure (90/60-120/80) 133/72 H Blood Pressure Mean (mm Hg) 92 Source Monitor Position Semi-Fowlers Blood Pressure Location Left Arm History Since Last Visit- (Skip if this is Patient's initial visit) Have you changed medications since your No last visit? Any new allergies or adverse reactions No Had a fall/change in ADL's that may No increase risk of falls Signs or symptoms of abuse and/or No neglect since last visit Have you been in the hospital since your No last visit? Has dressing in place as prescribed Yes Has compression in place as prescribed No Has offloadiing in place as prescribed No Experienced any changes in pain level or No management Left Footwear Regular Shoe Right Footwear Regular Shoe Pain Scale: 0-10 Numeric Is Patient Pain Free? Yes WC - Nurse 1 - General Ulcer Measurement Start: 06/06/24 08:53 Freq: Status: Active Protocol: Activity Type Activity Date Activity User E-sign Co-sign Detail Recorded Client Recorded Date Recorded By Document 06/06/24 08:54 ASHA [id number] 06/06/24 09:00 RB 06/06/24 08:54 Wound Center Nurse 1 6-right lateral foot -Combined with other wound No -Current Size (cm) - Length 0.1 -Current Size (cm) - Width 0.1 -Current Size (cm) - Depth 0.1 -Total Square Cm 0.01 -Tunneling No -Undermining/Tunneling No -Circular Undermining No -Exudate Amt Small -Exudate Type Serosanguineous -Wound Margin Distinct, Outline Attached -Granulation Amt Medium (34-66%) -Granulation Quality [place] -Slough/Fibrin Yes -Necrosis Amt Small (1-33%) -Necrotic Tissue Type Adherent Slough -Structure Exposed N/A -Texture (Rocio-wound Skin Appearance) Assessed,Callus -Moisture (Rocio-wound Skin Appearance) Assessed -Color (Rocio-wound Skin Appearance) Not Assessed -Temperature (Rocio-wound Skin No Abnormality Appearance) (Pt Warm) -Tenderness on Palpation (Rocio-wound No Skin Appearance) -Ulcer Cleansing Wound Cleanser -Foul Odor after Cleansing No -Anesthetic Used 5% Lidocaine Gel #5 Left Great toe -Combined with other wound No -Current Size (cm) - Length 0.1 -Current Size (cm) - Width 0.1 -Current Size (cm) - Depth 0.1 -Total Square Cm 0.01 -Tunneling No -Undermining/Tunneling No -Circular Undermining No -Exudate Amt Small -Exudate Type Serosanguineous -Wound Margin Distinct, Outline Attached -Granulation Amt Medium (34-66%) -Granulation Quality [place] -Slough/Fibrin Yes -Necrosis Amt Small (1-33%) -Necrotic Tissue Type Adherent Slough -Structure Exposed N/A -Texture (Rocio-wound Skin Appearance) Assessed,Callus -Moisture (Rocio-wound Skin Appearance) Assessed -Color (Rocio-wound Skin Appearance) Assessed -Temperature (Rocio-wound Skin No Abnormality Appearance) (Pt Warm) -Tenderness on Palpation (Rocio-wound No Skin Appearance) -Ulcer Cleansing Wound Cleanser -Foul Odor after Cleansing No -Anesthetic Used 5% Lidocaine Gel Assessment/Plan Assessment/Plan (1) Non-pressure chronic ulcer of other part of left foot with fat layer exposed: CODE(S): L97.522 - Non-pressure chronic ulcer of other part of left foot with fat layer exposed PLAN: Exam performed. Patient has neuropathic ulcerations to bilateral feet. The wounds are small stable noninfected at this time. Patient has idiopathic neuropathy. Patient is following with neurology for possible dementia workup. In clinic today patient appears confused, depressed. Bilateral foot wounds were debrided excisionally down to including level of subcutaneous tissue of all nonviable tissue using a #15 blade without incident. Patient tolerated procedure well. Topical anesthesia used. Hemostasis obtained with light compression. Pre and postdebridement measurements documented nursing notes. Plan for antibiotic ointment and Band-Aid dressing daily. Will continue supportive shoe gear for offloading. Consider upgrading to total contact cast if there are any delays in healing. Wounds are too small for grafting at this time. (2) Non-pressure chronic ulcer of other part of right foot with fat layer exposed: CODE(S): L97.512 - Non-pressure chronic ulcer of other part of right foot with fat layer exposed (3) Other hereditary and idiopathic neuropathies: CODE(S): G60.8 - Other hereditary and idiopathic neuropathies
--- NOTE | 2024-06-06 09:33 | PCM.WC.PN ---
History of Present Illness Date of Service: 06/06/24 Chief Complaint: Right second toe ulcer History of Wound: 66-year-old male presents to the wound healing center for chronic toe ulcer. He applies hydrogel daily. He wears boots that have more toe space. He does have rest paresthesias up to his ankle level. He denies odor, redness, fever, chill, nausea, vomiting. He denies known drainage. He relates he had a vascular test and he will follow up with Dr. Mark to discuss his plan on November 05. He denies redness or odor to the foot. He denies foot drainage. Objective Data Objective Data Vital Signs: Vital Signs Temp Pulse Resp BP 97.1 F L 84 18 133/72 H 06/06/24 08:54 06/06/24 08:54 06/06/24 08:54 06/06/24 08:54 Weight: 86.183 kg Body Mass Index (BMI) 25.7 Physical Exam Narrative Neurovascular status unchanged. Full-thickness wound to plantar lateral foot at the plantar fifth metatarsal base. Full-thickness wound left plantar medial hallux. No deep signs of infection. Predebridement there is a hyperkeratotic rim. Otherwise postdebridement wound demonstrates clean granular base with clean skin edges and no signs of infection. There is a prominent fifth metatarsal base to bilateral feet causing callusing and wound formation. There is also hallux rigidus to the left foot contributing to the hallux wound formation. Debridement Note Debridement Note Post-Debridement Measurements and Additional Note: Post-Debridement Measurements/Treatment - Nurse 1 - General Ulcer Assessment Start: 06/06/24 08:53 Freq: Status: Active Protocol: MATTHEW Activity Type Activity Date Activity User E-sign Co-sign Detail Recorded Client Recorded Date Recorded By Document 06/06/24 08:54 ASHA [id number] 06/06/24 09:00 RB 06/06/24 08:54 - Today's Visit Information Type of service Follow-up Visit (Physician/TOPOGRAPHICAL SURVEYOR ) Arrival Mode Ambulatory Transfer Assistance None Patient Identification Verified (Name & Yes ) Patient Requires Transmission-Based No Precautions Height and Weight Body Mass Index (BMI) 25.7 BMI Classification Overweight Vital Signs Temperature (97.8 F-99.1 F) 97.1 F L Temperature Source Temporal Pulse Rate (60-100) 84 Pulse Location Monitor Respiratory Rate (12-18) 18 Respiratory rate source Observation Blood Pressure (90/60-120/80) 133/72 H Blood Pressure Mean (mm Hg) 92 Source Monitor Position Semi-Fowlers Blood Pressure Location Left Arm History Since Last Visit- (Skip if this is Patient's initial visit) Have you changed medications since your No last visit? Any new allergies or adverse reactions No Had a fall/change in ADL's that may No increase risk of falls Signs or symptoms of abuse and/or No neglect since last visit Have you been in the hospital since your No last visit? Has dressing in place as prescribed Yes Has compression in place as prescribed No Has offloadiing in place as prescribed No Experienced any changes in pain level or No management Left Footwear Regular Shoe Right Footwear Regular Shoe Pain Scale: 0-10 Numeric Is Patient Pain Free? Yes WC - Nurse 1 - General Ulcer Measurement Start: 06/06/24 08:53 Freq: Status: Active Protocol: Activity Type Activity Date Activity User E-sign Co-sign Detail Recorded Client Recorded Date Recorded By Document 06/06/24 08:54 ASHA [id number] 06/06/24 09:00 RB 06/06/24 08:54 Wound Center Nurse 1 6-right lateral foot -Combined with other wound No -Current Size (cm) - Length 0.1 -Current Size (cm) - Width 0.1 -Current Size (cm) - Depth 0.1 -Total Square Cm 0.01 -Tunneling No -Undermining/Tunneling No -Circular Undermining No -Exudate Amt Small -Exudate Type Serosanguineous -Wound Margin Distinct, Outline Attached -Granulation Amt Medium (34-66%) -Granulation Quality [place] -Slough/Fibrin Yes -Necrosis Amt Small (1-33%) -Necrotic Tissue Type Adherent Slough -Structure Exposed N/A -Texture (Rocio-wound Skin Appearance) Assessed,Callus -Moisture (Rocio-wound Skin Appearance) Assessed -Color (Rocio-wound Skin Appearance) Not Assessed -Temperature (Rocio-wound Skin No Abnormality Appearance) (Pt Warm) -Tenderness on Palpation (Rocio-wound No Skin Appearance) -Ulcer Cleansing Wound Cleanser -Foul Odor after Cleansing No -Anesthetic Used 5% Lidocaine Gel #5 Left Great toe -Combined with other wound No -Current Size (cm) - Length 0.1 -Current Size (cm) - Width 0.1 -Current Size (cm) - Depth 0.1 -Total Square Cm 0.01 -Tunneling No -Undermining/Tunneling No -Circular Undermining No -Exudate Amt Small -Exudate Type Serosanguineous -Wound Margin Distinct, Outline Attached -Granulation Amt Medium (34-66%) -Granulation Quality [place] -Slough/Fibrin Yes -Necrosis Amt Small (1-33%) -Necrotic Tissue Type Adherent Slough -Structure Exposed N/A -Texture (Rocio-wound Skin Appearance) Assessed,Callus -Moisture (Rocio-wound Skin Appearance) Assessed -Color (Rocio-wound Skin Appearance) Assessed -Temperature (Rocio-wound Skin No Abnormality Appearance) (Pt Warm) -Tenderness on Palpation (Rocio-wound No Skin Appearance) -Ulcer Cleansing Wound Cleanser -Foul Odor after Cleansing No -Anesthetic Used 5% Lidocaine Gel Assessment/Plan Assessment/Plan (1) Non-pressure chronic ulcer of other part of left foot with fat layer exposed: CODE(S): L97.522 - Non-pressure chronic ulcer of other part of left foot with fat layer exposed PLAN: Exam performed. Patient has neuropathic ulcerations to bilateral feet. The wounds are small stable noninfected at this time -no changes Patient has idiopathic neuropathy. Patient is following with neurology for possible dementia workup. In clinic today patient appears confused, depressed. Bilateral foot wounds were debrided excisionally down to including level of subcutaneous tissue of all nonviable tissue using a #15 blade without incident. Patient tolerated procedure well. Topical anesthesia used. Hemostasis obtained with light compression. Pre and postdebridement measurements documented nursing notes. Patient complaining of significant neuropathic pain today. Offered compounded cream. Patient also reports that he recently ran out of gabapentin last week. I have recommended follow-up with Dr. Baer regarding gabapentin refill. Due to painful neuropathy of refer the patient to pain management. I have also recommend patient follows up with therapy as he is clearly depressed and demonstrates low motivation to improve. Plan for antibiotic ointment and Band-Aid dressing daily. Will continue supportive shoe gear for offloading. Consider upgrading to total contact cast if there are any delays in healing. Wounds are too small for grafting at this time. (2) Non-pressure chronic ulcer of other part of right foot with fat layer exposed: CODE(S): L97.512 - Non-pressure chronic ulcer of other part of right foot with fat layer exposed (3) Other hereditary and idiopathic neuropathies: CODE(S): G60.8 - Other hereditary and idiopathic neuropathies
[2024-06-13 10:36] VITALS: BP 113/57; PULSE 61; RESP 18; TEMP 36.2; BMI 25.7
--- NOTE | 2024-06-13 11:16 | PN.PCM_ITS ---
History of Present Illness Date of Service: 06/13/24 Chief Complaint: Right second toe ulcer History of Wound: 66-year-old male presents to the wound healing center for chronic toe ulcer. He applies hydrogel daily. He wears boots that have more toe space. He does have rest paresthesias up to his ankle level. He denies odor, redness, fever, chill, nausea, vomiting. He denies known drainage. He relates he had a vascular test and he will follow up with Dr. Mark to discuss his plan on November 05. He denies redness or odor to the foot. He denies foot drainage. Objective Data Objective Data Vital Signs: Vital Signs Temp Pulse Resp BP O2 Del Method 97.2 F L 61 18 113/57 L Room Air 06/13/24 10:36 06/13/24 10:36 06/13/24 10:36 06/13/24 10:36 06/13/24 10:36 Oxygen Delivery Method Room Air Weight: 86.183 kg Body Mass Index (BMI) 25.7 Physical Exam Const alert and oriented x3 Constitutional Narrative: Neurovascular status unchanged. Wounds healed at this time to bilateral feet. Bilateral hallux rigidus contributing to wound formation to hallux is bilaterally. Plantar fifth metatarsal base bilaterally noted be prominent creating callusing. Debridement Note Debridement Note Post-Debridement Measurements and Additional Note: Post-Debridement Measurements/Treatment - Nurse 1 - General Ulcer Assessment Start: 06/06/24 08:53 Freq: Status: Active Protocol: DON.LOWEXT Activity Type Activity Date Activity User E-sign Co-sign Detail Recorded Client Recorded Date Recorded By Document 06/06/24 08:54 RB [id number] 06/06/24 09:00 RB Document 06/13/24 10:36 KW [id number] 06/13/24 10:42 KW Edit Result 06/13/24 10:36 KW (1) [id number] 06/13/24 10:44 KW (1) Blood Pressure (90/60-120/80) 151/55 H => 113/57 L Blood Pressure Mean (mm Hg) 87 => 75 06/06/24 06/13/24 08:54 10:36 - Today's Visit Information Type of service Follow-up Visit Follow-up Visit (Physician/SIGNAL MAINTENANCE TECHNICIAN (Physician/SIGNAL MAINTENANCE TECHNICIAN ) ) Arrival Mode Ambulatory Ambulatory Transfer Assistance None Patient Identification Verified (Name & Yes Yes ) Patient Requires Transmission-Based No Precautions Height and Weight Body Mass Index (BMI) 25.7 25.7 BMI Classification Overweight Overweight Vital Signs Temperature (97.8 F-99.1 F) 97.1 F L 97.2 F L Temperature Source Temporal Temporal Pulse Rate (60-100) 84 61 Pulse Location Monitor Monitor Respiratory Rate (12-18) 18 18 Respiratory rate source Observation Observation Oxygen Delivery Method Room Air Blood Pressure (90/60-120/80) 133/72 H 113/57 L Blood Pressure Mean (mm Hg) 92 75 Source Monitor Monitor Position Semi-Fowlers Sitting Blood Pressure Location Left Arm Left Arm History Since Last Visit- (Skip if this is Patient's initial visit) Have you changed medications since your No No last visit? Any new allergies or adverse reactions No No Had a fall/change in ADL's that may No No increase risk of falls Signs or symptoms of abuse and/or No No neglect since last visit Have you been in the hospital since your No No last visit? Has dressing in place as prescribed Yes Yes Has compression in place as prescribed No Yes Has offloadiing in place as prescribed No N/A Experienced any changes in pain level or No No management Left Footwear Regular Shoe Regular Shoe Right Footwear Regular Shoe Regular Shoe Pain Scale: 0-10 Numeric Is Patient Pain Free? Yes Yes WC - Nurse 1 - General Ulcer Measurement Start: 06/06/24 08:53 Freq: Status: Active Protocol: Activity Type Activity Date Activity User E-sign Co-sign Detail Recorded Client Recorded Date Recorded By Document 06/06/24 08:54 RB [id number] 06/06/24 09:00 RB Document 06/13/24 10:36 KW [id number] 06/13/24 10:42 KW 06/06/24 06/13/24 08:54 10:36 Wound Center Nurse 1 6-right lateral foot -Combined with other wound No -Current Size (cm) - Length 0.1 0.1 -Current Size (cm) - Width 0.1 0.1 -Current Size (cm) - Depth 0.1 0 -Total Square Cm 0.01 0.01 -Tunneling No -Undermining/Tunneling No -Circular Undermining No -Exudate Amt Small None Present -Exudate Type Serosanguineous -Wound Margin Distinct, Outline Attached -Granulation Amt Medium (34-66%) -Granulation Quality [place] -Slough/Fibrin Yes -Necrosis Amt Small (1-33%) -Necrotic Tissue Type Adherent Slough -Structure Exposed N/A -Texture (Rocio-wound Skin Appearance) Assessed,Callus Assessed,Callus -Moisture (Rocio-wound Skin Appearance) Assessed Assessed -Color (Rocio-wound Skin Appearance) Not Assessed Assessed -Temperature (Rocio-wound Skin No Abnormality No Abnormality Appearance) (Pt Warm) (Pt Warm) -Tenderness on Palpation (Rocio-wound No No Skin Appearance) -Ulcer Cleansing Wound Cleanser Rinsed/ Irrigated with Saline -Foul Odor after Cleansing No No -Anesthetic Used 5% Lidocaine 5% Lidocaine Gel Gel #5 Left Great toe -Combined with other wound No -Current Size (cm) - Length 0.1 0.1 -Current Size (cm) - Width 0.1 0.1 -Current Size (cm) - Depth 0.1 0 -Total Square Cm 0.01 0.01 -Tunneling No -Undermining/Tunneling No -Circular Undermining No -Exudate Amt Small None Present -Exudate Type Serosanguineous -Wound Margin Distinct, Outline Attached -Granulation Amt Medium (34-66%) -Granulation Quality [place] -Slough/Fibrin Yes -Necrosis Amt Small (1-33%) -Necrotic Tissue Type Adherent Slough -Structure Exposed N/A -Texture (Rocio-wound Skin Appearance) Assessed,Callus Assessed -Moisture (Rocio-wound Skin Appearance) Assessed Assessed -Color (Rocio-wound Skin Appearance) Assessed Assessed -Temperature (Rocio-wound Skin No Abnormality No Abnormality Appearance) (Pt Warm) (Pt Warm) -Tenderness on Palpation (Rocio-wound No No Skin Appearance) -Ulcer Cleansing Wound Cleanser Rinsed/ Irrigated with Saline -Foul Odor after Cleansing No No -Anesthetic Used 5% Lidocaine 5% Lidocaine Gel Gel WC - Nurse 2 - General Ulcer CM Notes Start: 06/06/24 08:53 Freq: Status: Active Protocol: Activity Type Activity Date Activity User E-sign Co-sign Detail Recorded Client Recorded Date Recorded By Document 06/06/24 09:18 JF [id number] 06/06/24 09:22 JF Document 06/13/24 11:00 JF [id number] 06/13/24 11:01 06/06/24 06/13/24 09:18 11:00 Wound Center Nurse 2 6-right lateral foot -Time 09:21 -Correct Patient Yes No -Correct Side, Site, Position Yes No -Correct Procedure Yes No -Procedure Performed Yes No -Type of Procedure Debridement -Clinical Debridement Subcutaneous -Tissue Removed Subcutaneous -Post Debridement (cm) - Length 1.0 0 -Post Debridement (cm) - Width 0.5 0 -Post Debridement (cm) - Depth 0.1 0 -Total Square (Post) (cm) 0.50 0 -Area of Debridement (cm) - Length 1.0 0 -Area of Debridement (cm) - Width 0.5 0 -Total Square (Area) (cm) 0.50 0 -Tunneling No -Undermining/Tunneling No -Circular Undermining No -Wound/Ulcer Outcome Not Healed Healed- Epithelialized -Ulcer Cleansing Rinsed/ Irrigated with Saline -Foul Odor after Cleansing No -Bioengineered Tissue No -Bleeding Controlled with Pressure -Treatment Response Procedure Tolerated Well -Offloading No -Debridement - Subq, 1st 20sq cm No #5 Left Great toe -Time 09:18 -Correct Patient Yes No -Correct Side, Site, Position Yes No -Correct Procedure Yes No -Procedure Performed Yes No -Type of Procedure Debridement -Clinical Debridement Subcutaneous -Tissue Removed Subcutaneous -Post Debridement (cm) - Length 0.3 0 -Post Debridement (cm) - Width 0.3 0 -Post Debridement (cm) - Depth 0.1 0 -Total Square (Post) (cm) 0.09 0 -Area of Debridement (cm) - Length 0.3 0 -Area of Debridement (cm) - Width 0.3 0 -Total Square (Area) (cm) 0.09 0 -Tunneling No -Undermining/Tunneling No -Circular Undermining No -Wound/Ulcer Outcome Not Healed Healed- Epithelialized -Ulcer Cleansing Rinsed/ Irrigated with Saline -Foul Odor after Cleansing No -Bioengineered Tissue No -Bleeding Controlled with Pressure -Treatment Response Procedure Tolerated Well -Offloading No -Debridement - Subq, 1st 20sq cm Yes Pain Scale: 0-10 Numeric Is Patient Pain Free? Yes Yes WC - Nurse 3 - General Ulcer D/C NN Start: 06/06/24 08:53 Freq: Status: Active Protocol: Activity Type Activity Date Activity User E-sign Co-sign Detail Recorded Client Recorded Date Recorded By Document 06/06/24 09:34 JF [id number] 06/06/24 09:34 Document 06/13/24 11:02 JF [id number] 06/13/24 11:02 06/06/24 06/13/24 09:34 11:02 Wound Care Center Nurse 3 6-right lateral foot -Ulcer Cleansing Rinsed/ Irrigated with Saline -Foul Odor after Cleansing No -Other Dressing betadine -Primary Dressing Covered/Secured with Dry Gauze, Secured with Tape #5 Left Great toe -Ulcer Cleansing Rinsed/ Irrigated with Saline -Foul Odor after Cleansing No -Other Dressing betadine -Primary Dressing Covered/Secured with Dry Gauze, Secured with Tape Pain Scale: 0-10 Numeric Is Patient Pain Free? Yes Yes WC - Visit Discharge Discharge Condition Stable Stable Ambulatory Status Ambulatory Ambulatory Transportation Private Auto Private Auto Medication Reconcilliation completed & Yes Yes provided to patient/care provider Clinical Summary of Care Provided Yes Yes Assessment/Plan Assessment/Plan (1) Other hereditary and idiopathic neuropathies: CODE(S): G60.8 - Other hereditary and idiopathic neuropathies PLAN: Exam performed. Patient has peripheral neuropathy which is painful to following up with pain management. Patient's foot wounds are healed bilaterally. I have recommended custom orthotics and frequent callus care due to at risk nature. Patient will follow-up in my outpatient clinic every 9 weeks for at risk footcare.
== END 2024-06-15 14:53 | disposition home or self-care (01) ==
LOC: WC 10:30
PROVIDERS: PCP Preventive Medicine Occupational Medicine; Referring Provider Preventive Medicine Occupational Medicine; Visit Provider Podiatrist
DX: L97.522 Non-pressure chronic ulcer of other part of left foot with fat layer exposed (principal); L97.512 Non-pressure chronic ulcer of other part of right foot with fat layer exposed; M20.22 Hallux rigidus, left foot; L84 Corns and callosities; G60.8 Other hereditary and idiopathic neuropathies; Z79.899 Other long term (current) drug therapy
CPT/HCPCS: 11042; 99213; G0463

== ENCOUNTER 2024-06-18 10:24 | Emergency (ER) | payer MEDICARE, BC, SELFPAY ==
[2024-06-18 10:24] VITALS: BP 114/62; PULSE 70; RESP 18; TEMP 36.9; O2SAT 100; BMI 25.7
--- NOTE | 2024-06-18 10:39 | EX.ED.DYSGE1 ---
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 He denies any fevers or chills, no cough or shortness of breath. He has a slight headache from sinus pressure. He is to use fluticasone prescribed by his primary care provider but he ran out of this prescription medication. He presents because of continued pain in his sinuses along with nasal congestion and drainage. No exacerbating or alleviating factors. [facility] Medical History Wears glasses Bone spur of foot Loss of hearing Anxiety Marijuana use Arthritis Syncope Heartburn Former smoker COPD (chronic obstructive pulmonary disease) CPAP (continuous positive airway pressure) dependence Leg cramps History of edema History of pain when walking Raynaud disease Neuropathy Home Medications ?Medication ?Instructions ?Recorded ?Last Taken ?Type fluticasone propionate 50 1 spray intranasal BID PRN nasal 06/07/23 Unknown History mcg/actuation nasal congestion spray,suspension multivitamin (Daily Multi-Vitamin 1 tab PO DAILY 06/07/23 09/05/23 History tablet) turmeric 100 mg-carlos 150 1 cap PO DAILY 06/07/23 09/05/23 History mg-olive 50 mg-oreg 150 mg-capryl capsule omega-3 fatty acids-fish oil 360 1 cap PO DAILY 08/20/23 09/05/23 History mg-1,200 mg capsule (Fish Oil) polyethylene glycol 3350 17 4 g PO DAILY PRN constipation 08/20/23 Unknown History gram/dose oral powder (Miralax) pregabalin 100 mg capsule 100 mg PO BID 09/23/23 Unknown History gabapentin 400 mg capsule 400 mg PO DAILY 05/23/24 Unknown History hydroxyzine pamoate 25 mg capsule 25 mg PO TID PRN itching #20 caps 06/02/24 Unknown Rx (Vistaril) azithromycin 500 mg tablet 500 mg PO DAILY 3 days #3 tabs 06/18/24 Unknown Rx fluticasone propionate 50 1 spray intranasal BID nasal 06/18/24 Unknown Rx mcg/actuation nasal congestion #16 grams spray,suspension Allergy/AdvReac Type Severity Reaction Status Date / Time grass pollen Allergy runny nose Verified 06/18/24 10:24 Family History Father Diabetes ALYSSA (obstructive sleep apnea) Surgical History Hx of colonoscopy Hx of LASIK Hx of oral surgery Hx of right cataract extraction Hx of left cataract extraction Hx of appendectomy Social History household members: none current occupational status: retired Smoking Status: Never smoker second hand exposure: No alcohol intake: current alcohol intake frequency: a few times a week details: stopped drinking one year ago substance use type: does not use what type of physical activity do you participate in: walking and bicycling anam/shinto: Religion ROS ROS ED ROS Narrative Constitutional: No fever, no chills. HEENT: No sore throat. No neck pain. No loss of vision. Positive nasal congestion and rhinorrhea. Bilateral ear pain. Chronic loss of hearing. Cardiovascular: No chest pain. No palpitations. No pedal edema. Respiratory: No cough, no shortness of breath. Abdominal: No abdominal pain. No nausea. No vomiting. Genitourinary: No dysuria. No hematuria. Musculoskeletal: No myalgias. No arthralgias. Neurologic: No headaches. No dizziness. No lightheadedness. Skin: No rash. No change in color. EXAM Physical Exam Narrative Exam Narrative: Afebrile. Vital signs noted. Nontoxic-appearing. Head is normocephalic and atraumatic. PERRL, EOMI. Mild tenderness to percussion of the maxillary sinuses. Neck soft and supple without meningismus. TMs clear bilaterally without erythema. No mastoid tenderness or erythema. Cardiovascular examination regular rate and rhythm. Lungs are clear to auscultation bilaterally. Abdomen soft nontender with normal active bowel sounds. Neurological examination nonfocal and nonlateralizing. Const Vital Signs: 06/18/24 10:24 Temperature 98.5 F Temperature Source Oral Pulse Rate 70 Respiratory Rate 18 Blood Pressure 114/62 Blood Pressure Mean 79 Pulse Ox 100 Oxygen Delivery Method Room Air MDM MDM MDM Narrative Medical decision making narrative: Differential diagnosis includes sinusitis versus otitis media versus allergic rhinitis. Based on his physical and history, as his symptoms of his sinusitis have been ongoing for 2 weeks, I do feel antibiotics are indicated. I reviewed his prior medication list and he had fluticasone so I wrote him a prescription for this to use as a nasal steroid as well as for an azithromycin Tri-Zenon. I discussed with him the Tri-Zenon versus 14 days of amoxicillin, and he preferred the shorter course of therapy for compliance. At this point in time, while I do not feel he needs any imaging or laboratory work, I feel he can be discharged to follow-up with his primary care provider. Return instructions to the emergency department were reviewed. Disposition is discharged home in stable condition. History & Record Review Discussion w/independent historian: Patient Discharge Plan Triage Chief Complaint: Cold Sx ED Provider: Ata Torres Dx/Rx/DC Orders Clinical Impression: Sinusitis, Ear pain Instructions: ED Sinusitis (Antibiotic Treatment) Prescriptions: New fluticasone propionate 50 mcg/actuation spray,suspension 1 spray intranasal BID Qty: 16 0RF Rx Instructions: administer into each nostril azithromycin 500 mg tablet 500 mg PO DAILY 3 Days Qty: 3 0RF No Action pregabalin 100 mg capsule 100 mg PO BID Patient Comments: Take 1 capsule twice a day by oral route. omega-3 fatty acids-fish oil [Fish Oil] 360-1,200 mg capsule 1 cap PO DAILY polyethylene glycol 3350 [Miralax] 17 gram/dose powder 4 g PO DAILY PRN (Reason: constipation) multivitamin [Daily Multi-Vitamin] Tablet 1 tab PO DAILY [id number]-[id number]-oreg-capry 100 mg-150 mg- 50 mg-150 mg capsule 1 cap PO DAILY fluticasone propionate 50 mcg/actuation spray,suspension 1 spray intranasal BID PRN (Reason: nasal congestion) gabapentin 400 mg capsule 400 mg PO DAILY hydroxyzine pamoate [Vistaril] 25 mg capsule 25 mg PO TID PRN (Reason: itching) Qty: 20 0RF Primary Care Provider: Stephen Gomez Referrals: Stephen Gomez DO [Primary Care Provider] - 1 Week if not improving Activity Restrictions/Additional Instructions: Follow-up with your primary care provider. Take antibiotics as directed. Return with new or worsening symptoms. Print Language: Maltese Disposition Disposition: Home, Self Care
== END 2024-06-18 10:48 | disposition home or self-care (01) ==
PROVIDERS: Emergency Provider Emergency Medicine; PCP Preventive Medicine Occupational Medicine; Visit Provider Emergency Medicine
DX: J32.9 Chronic sinusitis, unspecified (principal); G30.9 Alzheimer's disease, unspecified; F02.80 Dementia in other diseases classified elsewhere, unspecified severity, without behavioral disturbance, psychotic disturbance, mood disturbance, and anxiety; J44.9 Chronic obstructive pulmonary disease, unspecified; H92.03 Otalgia, bilateral; H91.93 Unspecified hearing loss, bilateral; Z79.899 Other long term (current) drug therapy
CPT/HCPCS: 99283

== ENCOUNTER 2024-07-22 11:47 | Emergency (ER) | payer MEDICARE, BC, SELFPAY ==
[2024-07-22 11:48] VITALS: BP 134/77; PULSE 71; RESP 16; TEMP 36.1; O2SAT 100; BMI 27.6
--- NOTE | 2024-07-22 12:19 | RAD_ITS ---
STUDY: X-RAY - CERVICAL SPINE REASON FOR EXAM: Male, 68 years old. Neck pain and headache TECHNIQUE: 5 view(s) of the cervical spine were obtained. COMPARISON: None FINDINGS: Normal anterior atlantoaxial articulation. Normal odontoid process. There is straightening of the normal cervical lordosis. There is diffuse demineralization of the cervical spine. There is multi-level degenerative disc disease with multilevel disc space narrowing. There is multi-level osseous foraminal stenosis. The soft tissue structures are unremarkable. RAD/Cerv Spine 4 or 5 Views IMPRESSION: Multilevel degenerative changes, no acute findings Electronically Signed: Selwyn Gonsalves MD at 13:29 EST ,
--- NOTE | 2024-07-22 12:25 | EDS_ITS ---
HPI History of Present Illness Chief Complaint: Upper Extremity Injury Narrative Narrative: Patient is a 68-year-old male past medical history anxiety, COPD,, neuropathy, Raynaud's disease who presents to the emergency department with a chief complaint of neck popping. He states that this been going on for a significant mount of time and states that is happening more frequently therefore he came here today for further evaluation management. He states that he has not seen a doctor about his neck. Patient states that he does not notice anything that makes his symptoms worse or better. [facility] Medical History Wears glasses Bone spur of foot Loss of hearing Anxiety Marijuana use Arthritis Syncope Heartburn Former smoker COPD (chronic obstructive pulmonary disease) CPAP (continuous positive airway pressure) dependence Leg cramps History of edema History of pain when walking Raynaud disease Neuropathy Home Medications ?Medication ?Instructions ?Recorded ?Last Taken ?Type fluticasone propionate 50 1 spray intranasal BID PRN nasal 06/07/23 Unknown History mcg/actuation nasal congestion spray,suspension multivitamin (Daily Multi-Vitamin 1 tab PO DAILY 06/07/23 09/05/23 History tablet) turmeric 100 mg-carlos 150 1 cap PO DAILY 06/07/23 09/05/23 History mg-olive 50 mg-oreg 150 mg-capryl capsule omega-3 fatty acids-fish oil 360 1 cap PO DAILY 08/20/23 09/05/23 History mg-1,200 mg capsule (Fish Oil) polyethylene glycol 3350 17 4 g PO DAILY PRN constipation 08/20/23 Unknown History gram/dose oral powder (Miralax) pregabalin 100 mg capsule 100 mg PO BID 09/23/23 Unknown History gabapentin 400 mg capsule 400 mg PO DAILY 05/23/24 Unknown History hydroxyzine pamoate 25 mg capsule 25 mg PO TID PRN itching #20 caps 06/02/24 Unknown Rx (Vistaril) azithromycin 500 mg tablet 500 mg PO DAILY 3 days #3 tabs 06/18/24 Unknown Rx fluticasone propionate 50 1 spray intranasal BID nasal 06/18/24 Unknown Rx mcg/actuation nasal congestion #16 grams spray,suspension Allergy/AdvReac Type Severity Reaction Status Date / Time grass pollen Allergy runny nose Verified 07/22/24 11:50 Family History Father Diabetes ALYSSA (obstructive sleep apnea) Surgical History Hx of colonoscopy Hx of LASIK Hx of oral surgery Hx of right cataract extraction Hx of left cataract extraction Hx of appendectomy Social History household members: none current occupational status: retired Smoking Status: Never smoker second hand exposure: No alcohol intake: current alcohol intake frequency: a few times a week details: stopped drinking one year ago substance use type: does not use what type of physical activity do you participate in: walking and bicycling anam/nondenominational: Evangelical ROS ROS ED ROS Narrative Constitutional: Denies any fevers, chills, headaches, lightness, dizziness Eyes: Denies change in vision double vision blurry vision Cardiovascular: denies chest pain or palpitation Respiratory: Lungs denies coughing wheezing shortness of breath Abdomen: Denies abdominal pain nausea vomit diarrhea Neurological: Denies any numbness, weakness, tingling Musculoskeletal: Complains of neck popping as noted above Skin: Denies any rashes or lesions EXAM Physical Exam Narrative Exam Narrative: General: Patient lying in bed resting comfortably did not appear to be in acute distress Head: Atraumatic, normocephalic Eyes: PERRL body, EOMI biotic, no conjunctival injection noted Neck: Soft, supple, trachea midline, no tenderness to palpation the midline cervical spine patient has full range of motion of his neck without any difficulty no concern for meningitis Cardiovascular: Regular rate and rhythm Respiratory: Clear to auscultation bilaterally Extremities: +5/5 strength noted in the bilateral upper and lower extremities, radial pulses +2/4 in the bilateral extremities, no pedal edema no exam Neurological: Patient following commands knew that he was at [facility] year is 2023. Sensation grossly intact in the median, ulnar and radial nerve distribution bilaterally Skin: Warm, dry, intact Const Vital Signs: 07/22/24 11:48 Temperature 97 F L Temperature Source Temporal Pulse Rate 71 Respiratory Rate 16 Blood Pressure 134/77 H Blood Pressure Mean 96 Pulse Ox 100 Oxygen Delivery Method Room Air MDM MDM MDM Narrative Medical decision making narrative: Patient is a 68-year-old male who presented to the emergency department chief complaint of neck popping. Patient will have x-ray performed here on the differential diagnose includes not limited to musculoskeletal strain, degenerative disc disease. Once x-rays obtained reviewed he will be reevaluated. Patient's x-ray reviewed by myself and by radiology showed multilevel degenerative changes no acute findings. Discussed results with the patient he would like to go home at this point time. Patient was advised to follow-up with his primary care physician in the outpatient setting and return with worsening symptoms or other concerns. He was advised to use Tylenol and ibuprofen for pain control. He is agreeable this plan all question concerns answered discharged home in stable condition. Discharge Plan Triage Chief Complaint: Upper Extremity Injury ED Provider: Yony Gonzales Dx/Rx/DC Orders Clinical Impression: Neck pain Prescriptions: No Action pregabalin 100 mg capsule 100 mg PO BID Patient Comments: Take 1 capsule twice a day by oral route. omega-3 fatty acids-fish oil [Fish Oil] 360-1,200 mg capsule 1 cap PO DAILY polyethylene glycol 3350 [Miralax] 17 gram/dose powder 4 g PO DAILY PRN (Reason: constipation) multivitamin [Daily Multi-Vitamin] Tablet 1 tab PO DAILY qikkyjlz-pbvr-gigpo-oreg-capry 100 mg-150 mg- 50 mg-150 mg capsule 1 cap PO DAILY fluticasone propionate 50 mcg/actuation spray,suspension 1 spray intranasal BID PRN (Reason: nasal congestion) fluticasone propionate 50 mcg/actuation spray,suspension 1 spray intranasal BID Qty: 16 0RF Rx Instructions: administer into each nostril azithromycin 500 mg tablet 500 mg PO DAILY 3 Days Qty: 3 0RF gabapentin 400 mg capsule 400 mg PO DAILY hydroxyzine pamoate [Vistaril] 25 mg capsule 25 mg PO TID PRN (Reason: itching) Qty: 20 0RF Primary Care Provider: Stephen Gomez Referrals: Stephen Gomez DO [Primary Care Provider] - Activity Restrictions/Additional Instructions: Follow-up with your primary care physician in the outpatient setting. Your x- ray of your neck showed degenerative changes but no acute findings. Use Tylenol and ibuprofen for pain control. Return with worsening symptoms or any other concerns Print Language: Yakut Disposition Disposition: Home, Self Care
== END 2024-07-22 14:20 | disposition home or self-care (01) ==
PROVIDERS: Emergency Provider Emergency Medicine; PCP Preventive Medicine Occupational Medicine; Visit Provider Emergency Medicine
DX: M54.2 Cervicalgia (principal); J44.9 Chronic obstructive pulmonary disease, unspecified; F41.9 Anxiety disorder, unspecified
CPT/HCPCS: 72050; 99283

== ENCOUNTER → 2024-08-07 | Outpatient (CLI) | payer MEDICARE, BC, SELFPAY ==
[2024-08-07 16:17] LABS: Absolute Lymphocyte Count 0.98 X10^3/uL (0.83-4.51); Absolute Neutrophil Count 5.3 X10^3/uL (2.0-7.7); Basophil# 0.03 X10^3/uL; Basophil% 0.4 % (0-1); Eosinophil# 0.01 X10^3/uL; Eosinophils% 0.1 % (0-5); Hematocrit 41.7 % (40-54); Lymphocyte # 0.98 X10^3/ul (0.83-4.51); Lymphocyte % 14.6 % (19-41); Mean Corp Hgb Conc 33.6 g/dL (32-36); Mean Corpuscular Hgb 32.3 pg (27.0-32.0); Mean Corpuscular Volume 96.1 fL (80-94); Mean Platelet Vol. 10.6 fl (6.2-12.0); Monocyte# 0.35 X10^3/uL; Monocyte% 5.2 % (0-10); NRBC Flagged by Analyzer 0 % (0-5); Neutrophil # 5.31 X10^3/uL (2.7-7.7); Neutrophil % 79.4 % (47-70); Platelet Count 258 K/mm3 (150-450); RBC Distribution Width CV 12.3 % (11.6-14.6); RBC Distribution Width SD 44.1 fl (35.1-43.9); Red Blood Count 4.34 M/mm3 (4.6-6.2); White Blood Count 6.7 K/mm3 (4.4-11.0)
[2024-08-07 16:42] LABS: ALB/GLOB Ratio 1.1 RATIO (0.9-2.4); AST(SGOT) 19 U/L (15-37); Alanine Aminotransfer ALT/SGPT 26 U/L (16-61); Albumin, Serum 4.1 g/dL (3.2-5.0); Alkaline Phosphatase 94 U/L (45-117); Anion Gap 1 (5-15); BUN 28 mg/dL (7-18); BUN/Creat Ratio 20.6 RATIO (10-20); Calcium,Total 9.7 mg/dL (8.5-10.1); Chloride 106 mmol/L (98-107); Creatinine, Serum 1.36 mg/dL (0.70-1.30); EST Glomerular Filtration Rate 55 mL/min (>60); Est Glom Filt Rate - Afr Amer 67 mL/min (>60); Globulin 3.6 g/dL (2.2-4.2); Glucose 108 mg/dL (74-106); Potassium 4.4 mmol/L (3.5-5.1); Protein, Total 7.7 g/dL (6.4-8.2); Sodium Level 141 mmol/L (136-145)
== END | disposition home or self-care (01) ==
PROVIDERS: PCP Preventive Medicine Occupational Medicine; Referring Provider Podiatrist; Visit Provider Podiatrist
DX: L97.519 Non-pressure chronic ulcer of other part of right foot with unspecified severity (principal)
CPT/HCPCS: 36415; 80053; 85025; 87070; 87075; 87077; 87186; 87205

== ENCOUNTER 2024-08-11 17:01 | Emergency (ER) | payer MEDICARE, BC, SELFPAY ==
[2024-08-11 17:02] VITALS: BP 151/84; PULSE 77; RESP 18; TEMP 36.6; O2SAT 99; BMI 25.5
--- NOTE | 2024-08-11 17:12 | EDS_ITS ---
HPI <MARGARITA Aj - Last Filed: 08/11/24 17:27> History of Present Illness Chief Complaint: Other, Pain/Inj Narrative Narrative: 68-year-old male states he has had right posterior neck pain for the last 3 weeks. There was no injury. He states the area just hurts when he moves his neck around. He has no pain that radiates into his arms. No weakness or numbness or tingling. He was seen here and had normal cervical x-rays and told to take Tylenol or Advil. He states his friend told him that elderly people should not take Advil so he never tried it. The only thing he has tried is aspirin which she took yesterday with some relief. [facility] <MARGARITA Aj - Last Filed: 08/11/24 17:27> [facility] Medical History Wears glasses Bone spur of foot Loss of hearing Anxiety Marijuana use Arthritis Syncope Heartburn Former smoker COPD (chronic obstructive pulmonary disease) CPAP (continuous positive airway pressure) dependence Leg cramps History of edema History of pain when walking Raynaud disease Neuropathy Home Medications ?Medication ?Instructions ?Recorded ?Last Taken ?Type fluticasone propionate 50 1 spray intranasal BID PRN nasal 06/07/23 Unknown History mcg/actuation nasal congestion spray,suspension multivitamin (Daily Multi-Vitamin 1 tab PO DAILY 06/07/23 09/05/23 History tablet) turmeric 100 mg-carlos 150 1 cap PO DAILY 06/07/23 09/05/23 History mg-olive 50 mg-oreg 150 mg-capryl capsule omega-3 fatty acids-fish oil 360 1 cap PO DAILY 08/20/23 09/05/23 History mg-1,200 mg capsule (Fish Oil) polyethylene glycol 3350 17 4 g PO DAILY PRN constipation 08/20/23 Unknown History gram/dose oral powder (Miralax) pregabalin 100 mg capsule 100 mg PO BID 09/23/23 Unknown History gabapentin 400 mg capsule 400 mg PO DAILY 05/23/24 Unknown History hydroxyzine pamoate 25 mg capsule 25 mg PO TID PRN itching #20 caps 06/02/24 Unknown Rx (Vistaril) azithromycin 500 mg tablet 500 mg PO DAILY 3 days #3 tabs 06/18/24 Unknown Rx fluticasone propionate 50 1 spray intranasal BID nasal 06/18/24 Unknown Rx mcg/actuation nasal congestion #16 grams spray,suspension prednisone 20 mg tablet 40 mg (2 x 20 mg) PO DAILY 4 days 08/11/24 Unknown Rx #8 tabs Allergy/AdvReac Type Severity Reaction Status Date / Time grass pollen Allergy runny nose Verified 08/11/24 17:02 Family History Father Diabetes ALYSSA (obstructive sleep apnea) Surgical History Hx of colonoscopy Hx of LASIK Hx of oral surgery Hx of right cataract extraction Hx of left cataract extraction Hx of appendectomy Social History household members: none current occupational status: retired Smoking Status: Never smoker second hand exposure: No alcohol intake: current alcohol intake frequency: a few times a week details: stopped drinking one year ago substance use type: does not use what type of physical activity do you participate in: walking and bicycling anam/gnosticism: Mormonism ROS <MARGARITA Aj - Last Filed: 08/11/24 17:27> ROS ED ROS Narrative Constitutional: Negative for fever, chills, malaise. Neuro: Negative for headache. Neuro: Negative for motor or sensory changes. EXAM <MARGARITA Aj - Last Filed: 08/11/24 17:27> Physical Exam Narrative Exam Narrative: CONST: Patient sitting in no acute distress. EYES: Normal inspection. HEAD: Normocephalic atraumatic. NECK: Normal inspection. No midline tenderness or step-offs. Right cervical paraspinal tenderness with movement. Supple, no meningismus. RESP: No respiratory distress, CTAB. CVS: Regular rate and rhythm, no murmur, no gallop. SKIN: Color normal, no rash, warm, dry, intact. EXTREMITIES: Normal appearance, 5/5 strength in bilateral shoulder abduction, elbow and wrist flexion/extension, and storeroom supervisor strength. Normal sensation. 2+ radial pulses. NEURO: Alert and answering questions appropriately. PSYCH: Normal affect. Const Vital Signs: 08/11/24 17:02 08/11/24 17:16 08/11/24 17:26 Temperature 97.9 F 97.9 F Temperature Source Oral Pulse Rate 77 77 Respiratory Rate 18 18 Respiratory Effort Normal Respiratory Pattern Normal Blood Pressure 151/84 H 151/84 H Blood Pressure Mean 106 106 Pulse Ox 99 99 Oxygen Delivery Method Room Air <Dr. Ubaldo Harrison, - Last Filed: 08/11/24 18:17> Physical Exam Const Vital Signs: 08/11/24 17:02 08/11/24 17:16 08/11/24 17:26 Temperature 97.9 F 97.9 F Temperature Source Oral Pulse Rate 77 77 Respiratory Rate 18 18 Respiratory Effort Normal Respiratory Pattern Normal Blood Pressure 151/84 H 151/84 H Blood Pressure Mean 106 106 Pulse Ox 99 99 Oxygen Delivery Method Room Air [facility] <MARGARITA Aj - Last Filed: 08/11/24 17:27> [facility] Narrative Medical decision making narrative: Differential: Cervical strain, unlikely fracture with recent negative x-rays and no trauma, he has no symptoms of cervical radiculopathy or cord compression. Patient has atraumatic right-sided cervical pain x 3 weeks. He was seen here recently and had unremarkable cervical x-rays. He is having similar pain with no new injury or new symptoms. He denies pain radiating to his extremities and is neurovascularly intact. He has no midline spinal tenderness. I think this is musculoskeletal pain and ordered Tylenol, lidocaine patch, and prednisone. He was given 4 additional days of prednisone burst for home, advised to use Tylenol and follow-up with his primary care doctor. <Dr. Ubaldo Harrison, DO - Last Filed: 08/11/24 18:17> [facility] Narrative Medical decision making narrative: Differential: Cervical strain, unlikely fracture with recent negative x-rays and no trauma, he has no symptoms of cervical radiculopathy or cord compression. Patient has atraumatic right-sided cervical pain x 3 weeks. He was seen here recently and had unremarkable cervical x-rays. He is having similar pain with no new injury or new symptoms. He denies pain radiating to his extremities and is neurovascularly intact. He has no midline spinal tenderness. I think this is musculoskeletal pain and ordered Tylenol, lidocaine patch, and prednisone. He was given 4 additional days of prednisone burst for home, advised to use Tylenol and follow-up with his primary care doctor. Attending note: I have personally performed a face to face assessment of the patient and have reviewed the JOE note. I personally made/approved the management plan and take responsibility for the patient management. I performed a substantive portion of the visit including all aspects of the following. My dennis findings include: Nontraumatic right-sided neck pain for the past 3 weeks. No radicular symptoms. Pain worse with movement. Was seen in the ED on 22 July had cervical x-rays reviewed noting mild degenerative changes. Prescribed NSAIDs however friend told not to take it due to his age. Pain worse with head movement. Reviewed recent labs 4 days ago creatinine 1.3. Previous to that 0.7. Will avoid NSAIDs at this time. Provided Tylenol. I performed osteopathic manipulation with facilitated positional release of the muscles with more left sided somatic dysfunction rotated sidebent left. This did improve his symptoms and range of motion. He will continue Tylenol Lidoderm patch, he is no t a diabetic therefore we will treat also with for steroids. He will follow-up with his PCP for outpatient evaluation. All questions were answered. Discharge Plan Triage Chief Complaint: Other, Pain/Inj ED Midlevel Provider: Carin Garcia ED Provider: Ubaldo Harrison Dx/Rx/DC Orders Clinical Impression: Cervicalgia Instructions: ED Neck Pain Prescriptions: New prednisone 20 mg tablet 40 mg PO DAILY 4 Days Qty: 8 0RF No Action pregabalin 100 mg capsule 100 mg PO BID Patient Comments: Take 1 capsule twice a day by oral route. omega-3 fatty acids-fish oil [Fish Oil] 360-1,200 mg capsule 1 cap PO DAILY polyethylene glycol 3350 [Miralax] 17 gram/dose powder 4 g PO DAILY PRN (Reason: constipation) multivitamin [Daily Multi-Vitamin] Tablet 1 tab PO DAILY awzwdtes-pvpb-jbadv-oreg-capry 100 mg-150 mg- 50 mg-150 mg capsule 1 cap PO DAILY fluticasone propionate 50 mcg/actuation spray,suspension 1 spray intranasal BID PRN (Reason: nasal congestion) fluticasone propionate 50 mcg/actuation spray,suspension 1 spray intranasal BID Qty: 16 0RF Rx Instructions: administer into each nostril azithromycin 500 mg tablet 500 mg PO DAILY 3 Days Qty: 3 0RF gabapentin 400 mg capsule 400 mg PO DAILY hydroxyzine pamoate [Vistaril] 25 mg capsule 25 mg PO TID PRN (Reason: itching) Qty: 20 0RF Primary Care Provider: Stephen Gomez Referrals: Stephen Gomez DO [Primary Care Provider] - Activity Restrictions/Additional Instructions: Thanks for letting us take care of you today. I recommend you take Tylenol every 6 hours as needed for pain and take the prescribed steroids. Follow-up with your primary care doctor. Print Language: Turkish Disposition Disposition: Home, Self Care Discharge Date/Time: 08/11/24 17:34
[2024-08-11] MEDS: Acetaminophen 325 MG Tablet 650 MG PO (17:22)
[2024-08-11] MEDS: Lidocaine 5% Patch 1 PATCH TOPICAL (17:22)
[2024-08-11] MEDS: predniSONE 20 MG Tablet 40 MG PO (17:24)
[2024-08-11 17:26] VITALS: BP 151/84; PULSE 77; RESP 18; TEMP 36.6; O2SAT 99
== END 2024-08-11 17:34 | disposition home or self-care (01) ==
LOC: ED 17:30
PROVIDERS: Emergency Provider Emergency Medicine; PCP Preventive Medicine Occupational Medicine; Visit Provider Emergency Medicine
DX: M54.2 Cervicalgia (principal); J44.9 Chronic obstructive pulmonary disease, unspecified; Z79.899 Other long term (current) drug therapy
CPT/HCPCS: 99282

== ENCOUNTER → 2024-09-12 | Outpatient (CLI) | payer MEDICARE, BC, SELFPAY ==
--- NOTE | 2024-09-12 13:52 | VDLE_ITS ---
Reason For Study Reason For Study: Bilateral leg pain RIGHT LEFT GSV is normal. GSV is normal. CFV is compressible, spontaneous, phasic, competent CFV is compressible, spontaneous, phasic, competent, and demonstrates normal augmentation. and demonstrates normal augmentation. FV is compressible, spontaneous, phasic, competent FV is compressible, spontaneous, phasic, competent and demonstrates normal augmentation. and demonstrates normal augmentation. POP V is compressible, spontaneous, phasic, competent POP V is compressible, spontaneous, phasic, competent and demonstrates normal augmentation. and demonstrates normal augmentation. T/P Trunk is compressible. T/P Trunk is compressible. PTV is compressible. PTV is compressible. RT PerV is compressible. LT PerV is compressible. Procedure This is a venous duplex using B-mode, color flow and spectral Doppler. Exam performed in department. A preliminary report was called and/or faxed to Dr. Diaz. VL/Venous Duplex US - Rodolfo Extrem Interpretation Summary Deep veins of the bilateral lower extremities are patent and compressible segme ntally. There is no evidence of bilateral lower extremities deep vein thrombosis. The bilateral great saphenous veins pe[place] ear patent and compressible segmentally. Ordering Physician: Doug Diaz Referring Physician: Stephen Gomez Performed By: Teresa Cesar RVT
== END | disposition home or self-care (01) ==
PROVIDERS: PCP Preventive Medicine Occupational Medicine; Referring Provider Podiatrist; Visit Provider Podiatrist
DX: M79.661 Pain in right lower leg (principal); M79.662 Pain in left lower leg
CPT/HCPCS: 93970

== ENCOUNTER → 2024-09-29 | Outpatient (CLI) | payer MEDICARE, BC, SELFPAY ==
--- NOTE | 2024-09-29 10:51 | MRI_ITS ---
PROCEDURE: MRI right foot without IV contrast REASON FOR EXAM: Pain, neuropathy TECHNIQUE: Multisequence multiplanar MR images of the right midfoot and forefoot were obtained without the administration of intravenous contrast. COMPARISON: None. FINDINGS Negative for fracture or marrow replacement. No significant bone marrow edema. No sizeable joint effusions. Visualized tendons are intact. Visualized plantar fascia is within normal limits. Collateral ligaments are within normal limits. 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 Moderate diffuse muscle atrophy and edema. No discrete mass. MRI/Lower Ext/No Jt/w/o IMPRESSION: 1. Negative for fracture. 2. Mild/moderate degenerative changes of the midfoot and 1st MTP joint. 3. Diffuse muscle atrophy and edema which can be seen with denervation. Please correlate. Reading Location: [facility]
== END | disposition home or self-care (01) ==
LOC: MRI 10:39
PROVIDERS: PCP Preventive Medicine Occupational Medicine; Referring Provider Podiatrist; Visit Provider Podiatrist
DX: M79.671 Pain in right foot (principal); M19.071 Primary osteoarthritis, right ankle and foot; M21.6X1 Other acquired deformities of right foot
CPT/HCPCS: 73718

== ENCOUNTER 2024-10-08 18:51 | Emergency (ER) | payer MEDICARE, BC, SELFPAY ==
[2024-10-08 18:52] VITALS: BP 157/75; PULSE 78; RESP 15; TEMP 36.8; O2SAT 100; BMI 26.0
--- NOTE | 2024-10-08 19:05 | EX.ED.VIS.UR ---
HPI HPI - URI History of Present Illness Chief Complaint: Other, Pain/Inj Informant: patient Narrative Narrative: 69-year-old male presents with rhinorrhea and postnasal drip symptoms causing him to spit out his rhinorrhea often which she states is annoying. He states he was diagnosed with a sinus infection and prescribed antibiotics, he states this is the third week of symptoms, he has already taken Augmentin and he has not on open new 10-day course of Augmentin that he is getting ready to start. He does not have any new symptoms. He denies any fevers or chills. He has an occasional mild cough but he denies any chest symptoms or dyspnea. He denies any facial pain or significant headaches. ROS ROS ED Constitutional Constitutional ED: Denies chills or fever(s) Eyes Eyes: Denies change in vision ENT ENT ED: Reports nasal congestion and rhinorrhea; Denies abnormal hearing, dizziness, headache(s), nose pain, otalgia, sinus pain, sinus pressure, sore throat, tongue swelling or vertigo Cardiovascular Cardiovascular: Denies chest pain or palpitations Respiratory/Chest Respiratory/Chest: Reports cough; Denies dyspnea Gastrointestinal Gastrointestinal: Denies abdominal pain, diarrhea, nausea or vomiting Genitourinary Genitourinary ED: Denies dysuria or hematuria Musculoskeletal Musculoskeletal: Denies myalgias or neck pain Integumentary Denies abscess or rash Neurologic Neurologic: Denies headache(s), paresthesias or weakness Psychiatric Psychiatric: Denies depression or suicidal thoughts Endocrine Endocrinology: Denies polydipsia or polyuria [facility] Medical History Wears glasses Bone spur of foot Loss of hearing Anxiety Marijuana use Arthritis Syncope Heartburn Former smoker COPD (chronic obstructive pulmonary disease) CPAP (continuous positive airway pressure) dependence Leg cramps History of edema History of pain when walking Raynaud disease Neuropathy Home Medications ?Medication ?Instructions ?Recorded ?Last Taken ?Type multivitamin (Daily Multi-Vitamin 1 tab PO DAILY 06/07/23 09/05/23 History tablet) turmeric 100 mg-carlos 150 1 cap PO DAILY 06/07/23 09/05/23 History mg-olive 50 mg-oreg 150 mg-capryl capsule omega-3 fatty acids-fish oil 360 1 cap PO DAILY 08/20/23 09/05/23 History mg-1,200 mg capsule (Fish Oil) polyethylene glycol 3350 17 4 g PO DAILY PRN constipation 08/20/23 Unknown History gram/dose oral powder (Miralax) gabapentin 400 mg capsule 400 mg PO DAILY 05/23/24 Unknown History fluticasone propionate 50 1 spray intranasal BID nasal 06/18/24 Unknown Rx mcg/actuation nasal congestion #16 grams spray,suspension Allergy/AdvReac Type Severity Reaction Status Date / Time grass pollen Allergy runny nose Verified 10/08/24 18:54 Family History Father Diabetes ALYSSA (obstructive sleep apnea) Surgical History Hx of colonoscopy Hx of LASIK Hx of oral surgery Hx of right cataract extraction Hx of left cataract extraction Hx of appendectomy Social History household members: none current occupational status: retired Smoking Status: Never smoker second hand exposure: No alcohol intake: current alcohol intake frequency: a few times a week details: stopped drinking one year ago substance use type: does not use what type of physical activity do you participate in: walking and bicycling anam/adventist: [employer]oo EXAM Physical Exam Const Vital Signs: 10/08/24 18:52 Temperature 98.2 F Temperature Source Temporal Pulse Rate 78 Respiratory Rate 15 Blood Pressure 157/75 H Blood Pressure Mean 102 Pulse Ox 100 Oxygen Delivery Method Room Air Positive well nourished and well developed Constitutional Narrative: Well-appearing in no distress General Appearance ED: well developed and NAD HEENT Reports moist mucous membranes HEENT Narrative: No sinus tenderness anywhere. No active nasal discharge of any type or nasal turbinate edema. Posterior pharynx is normal and clear. normocephalic and atraumatic Throat: Negative for posterior oropharynx abnormal Eyes PERRL and EOMs intact bilaterally Neck no lymphadenopathy, supple and no meningeal signs Resp normal respiratory effort and clear to auscultation bilaterally Cardio no murmurs Rate: regular rate Rhythm: regular rhythm Neuro oriented x3, CN's II-XII intact bilaterally and no sensory deficits noted Sensorium / Orientation: alert Motor Exam: strength 5/5 throughout Skin Lesions: no lesions Rashes: no rashes MDM MDM MDM Narrative Medical decision making narrative: I reassured patient, he does not have symptoms or exam findings of sinusitis. He is probably not better because this is not a bacterial infection. He states sometimes the rhinorrhea is green or yellow. It is possible he has a cold, it is possible this is allergies to something in his home. He has fluticasone nasal spray at home, but he does not use it regularly advised that he try that for a week before he decides it does not help, but I advised him not to take the new antibiotic as I do not think it is indicated based on what I am seeing. However, it may have been prescribed to him for reasons that I am not aware of, so I advised him to follow-up with his doctor who prescribed it for reevaluation. Discharge Plan Triage Chief Complaint: Other, Pain/Inj ED Provider: Lenny Olivia Dx/Rx/DC Orders Clinical Impression: Postnasal drip Instructions: ED Allergic Rhinitis Prescriptions: Continued omega-3 fatty acids-fish oil [Fish Oil] 360-1,200 mg capsule 1 cap PO DAILY polyethylene glycol 3350 [Miralax] 17 gram/dose powder 4 g PO DAILY PRN (Reason: constipation) multivitamin [Daily Multi-Vitamin] Tablet 1 tab PO DAILY [id number]-oreg-capry 100 mg-150 mg- 50 mg-150 mg capsule 1 cap PO DAILY fluticasone propionate 50 mcg/actuation spray,suspension 1 spray intranasal BID Qty: 16 0RF Rx Instructions: administer into each nostril gabapentin 400 mg capsule 400 mg PO DAILY Discontinued amoxicillin-pot clavulanate 875-125 mg tablet 1 tab PO BID Qty: 20 0RF Primary Care Provider: Stephen Gomez Referrals: Stephen Gomez DO [Primary Care Provider] - 1 Week if not improving Print Language: Irish Disposition Disposition: Home, Self Care
--- NOTE | 2024-10-08 19:41 | ED.RN ---
This nurse to room to provide care. upon entering patient is not in room nor in unit. patient left prior to nurse assessment and discharge paperwork.
== END 2024-10-08 19:30 | disposition home or self-care (01) ==
PROVIDERS: Emergency Provider Emergency Medicine; PCP Preventive Medicine Occupational Medicine; Visit Provider Emergency Medicine
DX: R09.82 Postnasal drip (principal); J44.9 Chronic obstructive pulmonary disease, unspecified; J34.89 Other specified disorders of nose and nasal sinuses; Z79.899 Other long term (current) drug therapy; Z87.891 Personal history of nicotine dependence
CPT/HCPCS: 99282

== ENCOUNTER 2024-10-19 10:03 | Outpatient (RCR) | payer MEDICARE, BC, SELFPAY ==
[2024-10-19 10:23] VITALS: BP 137/73; PULSE 62; RESP 18; TEMP 35.9
--- NOTE | 2024-10-19 11:23 | PCM.WC.HP ---
History of Present Illness Date of Service: 10/19/24 Chief Complaint: Left hallux ulceration History of Wound: This is a 69-year-old male who was referred to the wound care center for chronic ulceration of the plantar aspect of his left hallux interphalangeal joint. Patient stated he was referred by his PCP Dr. Gomez. He has PMHx of chronic venous insufficiency, edema lower extremity, history of ulcerations to bilateral foot, PVD, and ALYSSA. Reports that this left hallux has been callused for many years but is now started to develop bruising/bleeding below the skin. He has had previous ulceration of the site in the past. Also reports that he has pain at the fifth metatarsal base to both feet due to excessive prominence of the styloid process. He does state that he sees [facility] and he undergoes debridement of hyperkeratosis in office. Patient denies wearing offloading inserts as he states they are too uncomfortable. He is noted to be wearing tighter fitting hiking boots. He denies any trauma to to the toe and denies drainage from toe. He denies being diabetic. Denies N/V/F/chills. Denies further complaints. [facility]LY [facility] Medical History Wears glasses Bone spur of foot Loss of hearing Anxiety Marijuana use Arthritis Syncope Heartburn Former smoker COPD (chronic obstructive pulmonary disease) CPAP (continuous positive airway pressure) dependence Leg cramps History of edema History of pain when walking Raynaud disease Neuropathy Home Medications ?Medication ?Instructions ?Recorded ?Last Taken ?Type multivitamin (Daily Multi-Vitamin 1 tab PO DAILY 06/07/23 09/05/23 History tablet) turmeric 100 mg-carlos 150 1 cap PO DAILY 06/07/23 09/05/23 History mg-olive 50 mg-oreg 150 mg-capryl capsule omega-3 fatty acids-fish oil 360 1 cap PO DAILY 08/20/23 09/05/23 History mg-1,200 mg capsule (Fish Oil) polyethylene glycol 3350 17 4 g PO DAILY PRN constipation 08/20/23 Unknown History gram/dose oral powder (Miralax) gabapentin 400 mg capsule 400 mg PO DAILY 05/23/24 Unknown History fluticasone propionate 50 1 spray intranasal BID nasal 06/18/24 Unknown Rx mcg/actuation nasal congestion #16 grams spray,suspension Allergy/AdvReac Type Severity Reaction Status Date / Time grass pollen Allergy runny nose Verified 10/08/24 18:54 Family History Father Diabetes ALYSSA (obstructive sleep apnea) Surgical History Hx of colonoscopy Hx of LASIK Hx of oral surgery Hx of right cataract extraction Hx of left cataract extraction Hx of appendectomy Social History household members: none current occupational status: retired Smoking Status: Never smoker second hand exposure: No alcohol intake: current alcohol intake frequency: a few times a week details: stopped drinking one year ago substance use type: does not use what type of physical activity do you participate in: walking and bicycling anam/episcopal: Lutheran ROS Constitutional Constitutional: Denies anorexia, chills, fatigue or fever(s) Eyes Eyes: Denies blurry vision, change in vision or double vision ENT HEENT: Denies dysphagia, nasal congestion, nasal discharge or sore throat Cardiovascular Cardiovascular: Denies chest pain, claudication or palpitations Respiratory/Chest Respiratory/Chest: Denies cough, shortness of breath at rest or wheezing Gastrointestinal Gastrointestinal: Denies abdominal pain, constipation, diarrhea, nausea or vomiting Genitourinary Genitourinary: Denies dysuria, hematuria or urinary urgency Musculoskeletal Musculoskeletal: Denies joint pain, joint stiffness or joint swelling Integumentary Integumentary: Denies lesions, pruritus or rash Neurologic Neurologic: Denies dizziness, numbness or seizures Psychiatric Psychiatric: Denies anxiety or depression Endocrine Endocrinology: Denies cold intolerance, heat intolerance, polydipsia or polyuria Hematologic/Lymphatic Hematologic/Lymphatic: Denies easy bleeding or easy bruising Vital Signs Vital Signs Vital Signs: 10/19/24 10:23 Temperature 96.7 F L Temperature Source Temporal Pulse Rate 62 Respiratory Rate 18 Blood Pressure 137/73 H Blood Pressure Mean 94 Blood Pressure Source Monitor Blood Pressure Position Semi-Fowlers Blood Pressure Location Left Arm Oxygen Delivery Method Room Air Physical Exam Const alert, oriented x3 and no apparent distress General Appearance: cooperative HEENT normocephalic Eyes General Eye: normal appearance of both eyes Neck General: normal visual inspection Lymph Lymphatic: no lymphadenopathy noted and no lymphedema noted Resp normal respiratory effort Cardio regular rate and regular rhythm Extremity no calf tenderness and no pedal edema Extremity Narrative: Left lower extremity: Vascular: DP and PT pulses weakly palpable. CFT less than 5 seconds to digits. Normal temperature gradient. Hair growth is diminished to digits. Neurologic: There is decreased protective sensation to the foot with 5.07g [place] monofilament. Musculoskeletal: Muscle strength 5 of 5 age-appropriate. There is decreased range of motion of the ankle joint dorsiflexion with the knee extended without pain or crepitus. There is prominent styloid process/base of fifth metatarsal noted. Does have tenderness to palpation. There is hyperkeratosis about the site secondary to pressure. Decreased range of motion of the first metatarsophalangeal joint dorsiflexion without pain or crepitus with foot unloaded and further reduction of motion with foot loaded consistent with a functional hallux limitus. Normal range of motion of the interphalangeal joint. Dermatologic: Skin does appear healthy with normal turgor. Does have hyperkeratosis about the base of the fifth metatarsal as stated above. There is also excessive hyper keratosis with subdermal hemorrhaging at the plantar aspect of the interphalangeal joint secondary to his hallux limitus. No signs of infection. Right lower extremity: Vascular: DP and PT pulses weakly palpable. CFT less than 5 seconds to digits. Normal temperature gradient. Hair growth is diminished to digits. Neurologic: There is decreased protective sensation to the foot with 5.07g [place] monofilament. Musculoskeletal: Muscle strength 5 of 5 age-appropriate. There is decreased range of motion of the ankle joint dorsiflexion with the knee extended without pain or crepitus. There is prominent styloid process/base of fifth metatarsal noted. Does have tenderness to palpation. There is hyperkeratosis about the site secondary to pressure. Dermatologic: Skin does appear healthy with normal turgor. Does have hyperkeratosis about the base of the fifth metatarsal as stated above. Skin no rashes or lesions noted Neuro moves all extremities Debridement Note Debridement Note Wound debrided: Left hallux IPJ Laterality: Left Wound Grade/Stage: [place] stage I Type of Debridement: Excisional debridement Anesthesia Used: 5% Lidocaine Gel Depth: Down to and including healthy tissue and in the subcutaneous layer Percentage of wound debrided: 100 Instrument Used: #15 blade and - (313 blade) Tissue Removed: Fibrous, devitalized subcutaneous, biofilm, slough Severity: Fat Layer Exposed Amount of bleeding with debridement: Mild (Scant amount of bleeding) Bleeding Controlled with: Compression and gauze Patient tolerated procedure: Patient tolerated procedure well Post-Debridement Measurements and Additional Note: Post-Debridement Measurements/Treatment WC - Nurse 1 - General Ulcer Assessment Start: 10/19/24 10:23 Freq: Status: Active Protocol: MATTHEW Activity Type Activity Date Activity User E-sign Co-sign Detail Recorded Client Recorded Date Recorded By Document 10/19/24 10:23 [employer] [id number] 10/19/24 10:29 10/19/24 10:23 WC - Today's Visit Information Type of service Initial Visit Arrival Mode Ambulatory Patient Identification Verified (Name & Yes ) Vital Signs Temperature (97.8 F-99.1 F) 96.7 F L Temperature Source Temporal Pulse Rate (60-100) 62 Pulse Location Monitor Respiratory Rate (12-18) 18 Respiratory rate source Observation Oxygen Delivery Method Room Air Blood Pressure (90/60-120/80) 137/73 H Blood Pressure Mean 94 Source Monitor Position Semi-Fowlers Blood Pressure Location Left Arm History Since Last Visit- (Skip if this is Patient's initial visit) Left Footwear Regular Shoe Right Footwear Regular Shoe Pain Scale: 0-10 Numeric Is Patient Pain Free? Yes - Nurse 1 - General Ulcer Measurement Start: 10/19/24 10:23 Freq: Status: Active Protocol: Activity Type Activity Date Activity User E-sign Co-sign Detail Recorded Client Recorded Date Recorded By Document 10/19/24 10:23 [employer] [id number] 10/19/24 10:29 KW 10/19/24 10:23 Wound Center Nurse 1 7 LT GREAT TOE -Current Size (cm) - Length 0.1 -Current Size (cm) - Width 0.1 -Current Size (cm) - Depth 0 -Total Square Cm 0.01 -Date of Last Picture (Recall this 10/19/24 field) -Exudate Amt None Present -Granulation Amt None Present (0 %) -Texture (Rocio-wound Skin Appearance) Assessed,Callus -Moisture (Rocio-wound Skin Appearance) Assessed -Color (Rocio-wound Skin Appearance) Assessed -Temperature (Rocio-wound Skin No Abnormality Appearance) (Pt Warm) -Tenderness on Palpation (Roico-wound No Skin Appearance) -Ulcer Cleansing Rinsed/ Irrigated with Saline -Foul Odor after Cleansing No -Anesthetic Used 5% Lidocaine Gel - Nurse 2 - General Ulcer CM Notes Start: 10/19/24 10:23 Freq: Status: Active Protocol: Activity Type Activity Date Activity User E-sign Co-sign Detail Recorded Client Recorded Date Recorded By Document 10/19/24 10:42 [facility] [id number] 10/19/24 10:55 [facility] 10/19/24 10:42 Wound Center Nurse 2 -Time 10:42 -Correct Patient Yes -Correct Side, Site, Position Yes -Correct Procedure Yes -Procedure Performed Yes -Type of Procedure Debridement -Clinical Debridement Subcutaneous -Tissue Removed Subcutaneous -Post Debridement (cm) - Length 0.1 -Post Debridement (cm) - Width 0.1 -Post Debridement (cm) - Depth 0.1 -Total Square (Post) (cm) 0.01 -Area of Debridement (cm) - Length 0.1 -Area of Debridement (cm) - Width 0.1 -Total Square (Area) (cm) 0.01 -Tunneling No -Undermining/Tunneling No -Circular Undermining No -Wound/Ulcer Outcome Not Healed -Ulcer Cleansing Rinsed/ Irrigated with Saline -Foul Odor after Cleansing No -Bioengineered Tissue No -Bleeding Controlled with Pressure -Treatment Response Procedure Tolerated Well -Debridement - Subq, 1st 20sq cm Yes Pain Scale: 0-10 Numeric Is Patient Pain Free? Yes - Nurse 3 - General Ulcer D/C NN Start: 10/19/24 10:23 Freq: Status: Active Protocol: Activity Type Activity Date Activity User E-sign Co-sign Detail Recorded Client Recorded Date Recorded By Document 10/19/24 11:02 DL [id number] 10/19/24 11:03 DL 10/19/24 11:02 Wound Care Center Nurse 3 7 LT GREAT TOE -Ulcer Cleansing Rinsed/ Irrigated with Saline -Other Covering BANDAID Treatment Response Procedure Tolerated Well Pain Scale: 0-10 Numeric Is Patient Pain Free? Yes WC - Visit Discharge Discharge Condition Stable Ambulatory Status Ambulatory Transportation Private Auto Assessment/Plan Assessment/Plan (1) Non-pressure chronic ulcer of other part of left foot with fat layer exposed: CODE(S): L97.522 - Non-pressure chronic ulcer of other part of left foot with fat layer exposed (2) Hallux limitus of left foot: CODE(S): M20.5X2 - Other deformities of toe(s) (acquired), left foot (3) Venous insufficiency (chronic) (peripheral): CODE(S): I87.2 - Venous insufficiency (chronic) (peripheral) (4) Type 2 diabetes mellitus with diabetic polyneuropathy: CODE(S): E11.42 - Type 2 diabetes mellitus with diabetic polyneuropathy PLAN: Plan Patient seen and evaluated Predebridement measurement: Hyperkeratosis with subdermal hemorrhaging Site underwent debridement as noted in the clinical panel above. Postdebridement measurement 0.1 cm x 0.1 cm x 0.1 cm. Antibiotic ointment and Band-Aid applied to site. Discussed continuing to pad and protect with Band-Aid in addition to offloading of the first metatarsal phalangeal joint. 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 He will continue to wear the offloading insert at all times for sufficient offloading of the interphalangeal joint. Discussed his ulceration is secondary to functional hallux limitus. Biomechanics and etiology have been discussed. Discussed continued diet for glycemic control and to aid in wound healing. He was instructed to continue to wear shoes at all times of ambulation and to avoid barefoot ambulation, this includes sock. He is understanding of this. Discussed continued padding and protecting of his prominent styloid process/base of fifth metatarsal of each foot to prevent ulceration. Discussed signs and symptoms of infection. Discussed if he gets increasing redness around the ulcerative site that moves up the toe onto the foot, purulent drainage from the ulcerative site, increasing foul odor from the ulcer site, or if he experiences fever greater than 101 degrees accompanied by nausea, vomiting, chills and later signs of a progressing infection and he should report to the ED for IV antibiotics and further evaluation. He is understanding of this. Will return to wound care center in 2 weeks or sooner for any questions or concerns.
--- NOTE | 2024-10-20 08:55 | WC ---
PHOTO 10/19/24 LEFT GREAT TOE
== END 2024-10-30 23:59 | disposition home or self-care (01) ==
LOC: WC 10:03
PROVIDERS: PCP Preventive Medicine Occupational Medicine; Referring Provider Preventive Medicine Occupational Medicine; Visit Provider Student in an Organized Health Care Education/Training Program
DX: E11.621 Type 2 diabetes mellitus with foot ulcer (principal); L97.522 Non-pressure chronic ulcer of other part of left foot with fat layer exposed; J44.9 Chronic obstructive pulmonary disease, unspecified; E11.59 Type 2 diabetes mellitus with other circulatory complications; E11.51 Type 2 diabetes mellitus with diabetic peripheral angiopathy without gangrene; E11.42 Type 2 diabetes mellitus with diabetic polyneuropathy; I87.2 Venous insufficiency (chronic) (peripheral); R60.0 Localized edema; G47.33 Obstructive sleep apnea (adult) (pediatric); Z87.891 Personal history of nicotine dependence; M20.5X2 Other deformities of toe(s) (acquired), left foot
CPT/HCPCS: 11042; 99213; G0463

== ENCOUNTER 2024-11-16 10:45 | Outpatient (RCR) | payer MEDICARE, BC, SELFPAY ==
[2024-10-31 00:34] VITALS: BP 137/73; PULSE 62; RESP 18; TEMP 35.9
[2024-11-02 11:04] VITALS: BP 136/62; PULSE 58; RESP 16
--- NOTE | 2024-11-02 12:43 | PN.PCM_ITS ---
History of Present Illness Date of Service: 11/02/24 Chief Complaint: Left hallux ulceration History of Wound: This is a 69-year-old male who was referred to the wound care center for chronic ulceration of the plantar aspect of his left hallux interphalangeal joint. Patient stated he was referred by his PCP Dr. Gomez. He has PMHx of chronic venous insufficiency, edema lower extremity, history of ulcerations to bilateral foot, PVD, and ALYSSA. Reports that this left hallux has been callused for many years but is now started to develop bruising/bleeding below the skin. He has had previous ulceration of the site in the past. Also reports that he has pain at the fifth metatarsal base to both feet due to excessive prominence of the styloid process. He does state that he sees [facility] and he undergoes debridement of hyperkeratosis in office. Patient denies wearing offloading inserts as he states they are too uncomfortable. He is noted to be wearing tighter fitting hiking boots. He denies any trauma to to the toe and denies drainage from toe. He denies being diabetic. Denies N/V/F/chills. Denies further complaints. Subjective Subjective This is a 69-year-old male who continues to follow at the wound care center for pressure ulceration of the left hallux secondary to hallux limitus. He has continued wearing supportive shoe gear with the offloading padding. Denies further trauma to the site. Denies constitutional symptoms. Denies further complaints. Objective Data Objective Data Vital Signs: Vital Signs Temp Pulse Resp BP O2 Del Method 96.7 F L 58 L 16 136/62 H Room Air 10/31/24 00:34 11/02/24 11:04 11/02/24 11:04 11/02/24 11:04 11/02/24 11:04 Oxygen Delivery Method Room Air Physical Exam Const alert, oriented x3 and no apparent distress General Appearance: cooperative HEENT normocephalic Eyes General Eye: normal appearance of both eyes Neck General: normal visual inspection Lymph Lymphatic: no lymphadenopathy noted and no lymphedema noted Resp normal respiratory effort Cardio regular rate and regular rhythm Extremity no calf tenderness Extremity Narrative: Left lower extremity: Vascular: DP and PT pulses weakly palpable. CFT less than 5 seconds to digits. Normal temperature gradient. Hair growth is diminished to digits. Neurologic: There is decreased protective sensation to the foot with 5.07g [place]oo monofilament. Musculoskeletal: Muscle strength 5 of 5 age-appropriate. There is decreased range of motion of the ankle joint dorsiflexion with the knee extended without pain or crepitus. There is prominent styloid process/base of fifth metatarsal noted. Does have tenderness to palpation. There is hyperkeratosis about the site secondary to pressure. Decreased range of motion of the first metatarsophalangeal joint dorsiflexion without pain or crepitus with foot unloaded and further reduction of motion with foot loaded consistent with a functional hallux limitus. Normal range of motion of the interphalangeal joint. Dermatologic: Skin does appear healthy with normal turgor. Does have hyperkeratosis about the base of the fifth metatarsal as stated above. There is also improving hyperkeratosis with subdermal hemorrhaging at the plantar aspect of the interphalangeal joint secondary to his hallux limitus. No signs of infection. Right lower extremity: Vascular: DP and PT pulses weakly palpable. CFT less than 5 seconds to digits. Normal temperature gradient. Hair growth is diminished to digits. Neurologic: There is decreased protective sensation to the foot with 5.07g [place]oo monofilament. Musculoskeletal: Muscle strength 5 of 5 age-appropriate. There is decreased range of motion of the ankle joint dorsiflexion with the knee extended without pain or crepitus. There is prominent styloid process/base of fifth metatarsal noted. Does have tenderness to palpation. There is hyperkeratosis about the site secondary to pressure. Dermatologic: Skin does appear healthy with normal turgor. Does have hyperkeratosis about the base of the fifth metatarsal as stated above. Skin no rashes or lesions noted and skin turgor normal Neuro moves all extremities Debridement Note Debridement Note Wound debrided: Left hallux plantar IPJ Laterality: Left Wound Grade/Stage: [place]mal[place] stage I Type of Debridement: Excisional debridement Anesthesia Used: 5% Lidocaine Gel Depth: Down to and including healthy tissue and in the subcutaneous layer Percentage of wound debrided: 100 Instrument Used: - (313 blade) Tissue Removed: Fibrous, devitalized subcutaneous, biofilm, slough Severity: Fat Layer Exposed Amount of bleeding with debridement: Mild Bleeding Controlled with: Compression and gauze Patient tolerated procedure: Patient tolerated procedure well Post-Debridement Measurements and Additional Note: Post-Debridement Measurements/Treatment DON - Nurse 1 - General Ulcer Assessment Start: 11/02/24 11:03 Freq: Status: Active Protocol: MATTHEW Activity Type Activity Date Activity User E-sign Co-sign Detail Recorded Client Recorded Date Recorded By Document 11/02/24 11:04 BRITTON [id number] 11/02/24 11:08 BRITTON 11/02/24 11:04 WC - Today's Visit Information Type of service Follow-up Visit (Physician/CUSTOMER EXPERIENCE INTERN ) Arrival Mode Ambulatory Patient Identification Verified (Name & Yes ) Vital Signs Temperature Source Temporal Pulse Rate (60-100) 58 L Pulse Location Monitor Respiratory Rate (12-18) 16 Respiratory rate source Observation Oxygen Delivery Method Room Air Blood Pressure (90/60-120/80) 136/62 H Blood Pressure Mean (mm Hg) 86 Source Monitor Position Semi-Fowlers Blood Pressure Location Left Arm History Since Last Visit- (Skip if this is Patient's initial visit) Have you changed medications since your No last visit? Any new allergies or adverse reactions No Had a fall/change in ADL's that may No increase risk of falls Signs or symptoms of abuse and/or No neglect since last visit Have you been in the hospital since your No last visit? Has dressing in place as prescribed Yes Has compression in place as prescribed N/A Has offloadiing in place as prescribed N/A Experienced any changes in pain level or No management Left Footwear Regular Shoe Right Footwear Regular Shoe Pain Scale: 0-10 Numeric Is Patient Pain Free? Yes - Nurse 1 - General Ulcer Measurement Start: 11/02/24 11:03 Freq: Status: Active Protocol: Activity Type Activity Date Activity User E-sign Co-sign Detail Recorded Client Recorded Date Recorded By Document 11/02/24 11:04 BRITTON [id number] 11/02/24 11:08 KW 11/02/24 11:04 Wound Center Nurse 1 7 LT GREAT TOE -Current Size (cm) - Length 0.1 -Current Size (cm) - Width 0.1 -Current Size (cm) - Depth 0 -Total Square Cm 0.01 -Date of Last Picture (Recall this 11/02/24 field) -Exudate Amt None Present -Wound Margin Indistinct, Non -Visible -Texture (Rocio-wound Skin Appearance) Assessed,Callus -Moisture (Rocio-wound Skin Appearance) Assessed -Color (Rocio-wound Skin Appearance) Assessed -Temperature (Rocio-wound Skin No Abnormality Appearance) (Pt Warm) -Tenderness on Palpation (Rocio-wound No Skin Appearance) -Ulcer Cleansing Rinsed/ Irrigated with Saline -Foul Odor after Cleansing No WC - Nurse 2 - General Ulcer CM Notes Start: 11/02/24 11:03 Freq: Status: Active Protocol: Activity Type Activity Date Activity User E-sign Co-sign Detail Recorded Client Recorded Date Recorded By Document 11/02/24 11:16 [facility] [id number] 11/02/24 11:29 [facility] 11/02/24 11:16 Wound Center Nurse 2 -Time 11:16 -Correct Patient Yes -Correct Side, Site, Position Yes -Correct Procedure Yes -Procedure Performed Yes -Type of Procedure Debridement -Clinical Debridement Subcutaneous -Tissue Removed Subcutaneous -Post Debridement (cm) - Length 0.1 -Post Debridement (cm) - Width 0.1 -Post Debridement (cm) - Depth 0.1 -Total Square (Post) (cm) 0.01 -Area of Debridement (cm) - Length 0.1 -Area of Debridement (cm) - Width 0.1 -Total Square (Area) (cm) 0.01 -Tunneling No -Undermining/Tunneling No -Circular Undermining No -Wound/Ulcer Outcome Not Healed -Ulcer Cleansing Rinsed/ Irrigated with Saline -Foul Odor after Cleansing No -Bioengineered Tissue No -Bleeding Controlled with Pressure -Treatment Response Procedure Tolerated Well -Offloading Yes -Type of Offloading Other -Other Type of Offloading offload pad in shoe -Debridement - Subq, 1st 20sq cm Yes Pain Scale: 0-10 Numeric Is Patient Pain Free? Yes WC - Nurse 3 - General Ulcer D/C NN Start: 11/02/24 11:03 Freq: Status: Active Protocol: Activity Type Activity Date Activity User E-sign Co-sign Detail Recorded Client Recorded Date Recorded By Document 11/02/24 11:32 [facility] [id number] 11/02/24 11:32 [facility] 11/02/24 11:32 Wound Care Center Nurse 3 7 LT GREAT TOE -Primary Dressing Applied Silicone Border Foam 4x4 -Other Dressing border to l lat foot callus, and bandaid to l great toe to pad protect -Silicone Border Foam 4x4 1 Treatment Response Procedure Tolerated Well Pain Scale: 0-10 Numeric Is Patient Pain Free? Yes WC - Visit Discharge Discharge Condition Stable Ambulatory Status Ambulatory Transportation Private Auto Assessment/Plan Assessment/Plan (1) Non-pressure chronic ulcer of other part of left foot with fat layer exposed: CODE(S): L97.522 - Non-pressure chronic ulcer of other part of left foot with fat layer exposed (2) Hallux limitus of left foot: CODE(S): M20.5X2 - Other deformities of toe(s) (acquired), left foot (3) Type 2 diabetes mellitus with diabetic polyneuropathy: CODE(S): E11.42 - Type 2 diabetes mellitus with diabetic polyneuropathy (4) Venous insufficiency (chronic) (peripheral): CODE(S): I87.2 - Venous insufficiency (chronic) (peripheral) PLAN: Plan Patient seen and evaluated Predebridement measurement: Hyperkeratosis with subdermal hemorrhaging Site underwent debridement as noted in the clinical panel above. Postdebridement measurement 0.1 cm x 0.1 cm x 0.1 cm. Antibiotic ointment and Band-Aid applied to site. Discussed continuing to pad and protect with Band-Aid in addition to offloading of the first metatarsal phalangeal joint. [place] offloading pad remains in place under his crate liner insert in his shoe. He will continue to wear the offloading insert at all times for sufficient offloading of the interphalangeal joint. There is improvement with less hyperkeratosis and subdermal hemorrhaging with the current offloading padding and thus will be continued. I have previously discussed his ulceration is secondary to functional hallux limitus. Biomechanics and etiology have been discussed. Discussed continued diet for glycemic control and to aid in wound healing. He was instructed to continue to wear shoes at all times of ambulation and to avoid barefoot ambulation, this includes sock. He is understanding of this. Discussed continued padding and protecting of his prominent styloid process/base of fifth metatarsal of each foot to prevent ulceration. Discussed signs and symptoms of infection. Discussed if he gets increasing redness around the ulcerative site that moves up the toe onto the foot, purulent drainage from the ulcerative site, increasing foul odor from the ulcer site, or if he experiences fever greater than 101 degrees accompanied by nausea, v omiting, chills and later signs of a progressing infection and he should report to the ED for IV antibiotics and further evaluation. He is understanding of this. Will return to wound care center in 2 weeks or sooner for any questions or concerns.
--- NOTE | 2024-11-03 10:47 | WC ---
PHOTO 11/02/24 LEFT GREAT TOE
[2024-11-16 11:10] VITALS: BP 128/60; PULSE 57; RESP 16; TEMP 36.5
--- NOTE | 2024-11-16 13:27 | PCM.WC.PN ---
History of Present Illness Date of Service: 11/16/24 Chief Complaint: Left hallux ulceration History of Wound: This is a 69-year-old male who was referred to the wound care center for chronic ulceration of the plantar aspect of his left hallux interphalangeal joint. Patient stated he was referred by his PCP Dr. Gomez. He has PMHx of chronic venous insufficiency, edema lower extremity, history of ulcerations to bilateral foot, PVD, and ALYSSA. Reports that this left hallux has been callused for many years but is now started to develop bruising/bleeding below the skin. He has had previous ulceration of the site in the past. Also reports that he has pain at the fifth metatarsal base to both feet due to excessive prominence of the styloid process. He does state that he sees Dr[facility] and he undergoes debridement of hyperkeratosis in office. Patient denies wearing offloading inserts as he states they are too uncomfortable. He is noted to be wearing tighter fitting hiking boots. He denies any trauma to to the toe and denies drainage from toe. He denies being diabetic. Denies N/V/F/chills. Denies further complaints. Subjective Subjective This is a 69-year-old male who continues to follow at the wound care center for pressure ulceration of the left hallux secondary to hallux limitus. He has continued wearing supportive shoe gear with the offloading padding and notes improvement. Denies further trauma to the site. Denies constitutional symptoms. Denies further complaints. Objective Data Objective Data Vital Signs: Vital Signs Temp Pulse Resp BP O2 Del Method 97.7 F L 57 L 16 128/60 H Room Air 11/16/24 11:10 11/16/24 11:10 11/16/24 11:10 11/16/24 11:10 11/02/24 11:04 Oxygen Delivery Method Room Air Physical Exam Const alert, oriented x3 and no apparent distress General Appearance: cooperative HEENT normocephalic Eyes General Eye: normal appearance of both eyes Neck General: normal visual inspection Lymph Lymphatic: no lymphadenopathy noted and no lymphedema noted Resp normal respiratory effort Cardio regular rate and regular rhythm Extremity no calf tenderness Extremity Narrative: Left lower extremity: Vascular: DP and PT pulses weakly palpable. CFT less than 5 seconds to digits. Normal temperature gradient. Hair growth is diminished to digits. Neurologic: There is decreased protective sensation to the foot with 5.07g [place] Joo monofilament. Musculoskeletal: Muscle strength 5 of 5 age-appropriate. There is decreased range of motion of the ankle joint dorsiflexion with the knee extended without pain or crepitus. There is prominent styloid process/base of fifth metatarsal noted. Does have tenderness to palpation. There is hyperkeratosis about the site secondary to pressure. Decreased range of motion of the first metatarsophalangeal joint dorsiflexion without pain or crepitus with foot unloaded and further reduction of motion with foot loaded consistent with a functional hallux limitus. Normal range of motion of the interphalangeal joint. Dermatologic: Skin does appear healthy with normal turgor. Does have hyperkeratosis about the base of the fifth metatarsal as stated above. There is also improving hyperkeratosis with subdermal hemorrhaging at the plantar aspect of the interphalangeal joint secondary to his hallux limitus. No signs of infection. Right lower extremity: Vascular: DP and PT pulses weakly palpable. CFT less than 5 seconds to digits. Normal temperature gradient. Hair growth is diminished to digits. Neurologic: There is decreased protective sensation to the foot with 5.07g [place] Joo monofilament. Musculoskeletal: Muscle strength 5 of 5 age-appropriate. There is decreased range of motion of the ankle joint dorsiflexion with the knee extended without pain or crepitus. There is prominent styloid process/base of fifth metatarsal noted. Does have tenderness to palpation. There is hyperkeratosis about the site secondary to pressure. Dermatologic: Skin does appear healthy with normal turgor. Does have hyperkeratosis about the base of the fifth metatarsal as stated above. Skin no rashes or lesions noted and skin turgor normal Neuro moves all extremities Debridement Note Debridement Note No debridement was completed: No debridement was completed today Post-Debridement Measurements and Additional Note: Post-Debridement Measurements/Treatment - Nurse 1 - General Ulcer Assessment Start: 11/02/24 11:03 Freq: Status: Active Protocol: DON.LOWEXT Activity Type Activity Date Activity User E-sign Co-sign Detail Recorded Client Recorded Date Recorded By Document 11/02/24 11:04 KW [id number] 11/02/24 11:08 KW Document 11/16/24 11:10 CP [id number] 11/16/24 11:15 CP 11/02/24 11/16/24 11:04 11:10 - Today's Visit Information Type of service Follow-up Visit Follow-up Visit (Physician/FINGERPRINT CLERK (Physician/FINGERPRINT CLERK ) ) Arrival Mode Ambulatory Ambulatory Patient Identification Verified (Name & Yes Yes ) Vital Signs Temperature (97.8 F-99.1 F) 97.7 F L Temperature Source Temporal Temporal Pulse Rate (60-100) 58 L 57 L Pulse Location Monitor Monitor Respiratory Rate (12-18) 16 16 Respiratory rate source Observation Observation Oxygen Delivery Method Room Air Blood Pressure (90/60-120/80) 136/62 H 128/60 H Blood Pressure Mean (mm Hg) 86 82 Source Monitor Monitor Position Semi-Fowlers Sitting Blood Pressure Location Left Arm Left Arm History Since Last Visit- (Skip if this is Patient's initial visit) Have you changed medications since your No No last visit? Any new allergies or adverse reactions No No Had a fall/change in ADL's that may No No increase risk of falls Signs or symptoms of abuse and/or No No neglect since last visit Have you been in the hospital since your No No last visit? Has dressing in place as prescribed Yes Yes Has compression in place as prescribed N/A N/A Has offloadiing in place as prescribed N/A Yes Experienced any changes in pain level or No No management Left Footwear Regular Shoe Right Footwear Regular Shoe Pain Scale: 0-10 Numeric Is Patient Pain Free? Yes Yes - Nurse 1 - General Ulcer Measurement Start: 11/02/24 11:03 Freq: Status: Active Protocol: Activity Type Activity Date Activity User E-sign Co-sign Detail Recorded Client Recorded Date Recorded By Document 11/02/24 11:04 KW [id number] 11/02/24 11:08 KW Document 11/16/24 11:10 CP [id number] 11/16/24 11:15 CP 11/02/24 11/16/24 11:04 11:10 Wound Center Nurse 1 7 LT GREAT TOE -Current Size (cm) - Length 0.1 0.1 -Current Size (cm) - Width 0.1 0.1 -Current Size (cm) - Depth 0 0.1 -Total Square Cm 0.01 0.01 -Date of Last Picture (Recall this 11/02/24 field) -Epithelialization Large 67-100% -Exudate Amt None Present None Present -Wound Margin Indistinct, Non -Visible -Structure Exposed N/A -Texture (Rocio-wound Skin Appearance) Assessed,Callus No Abnormality -Moisture (Rocio-wound Skin Appearance) Assessed No Abnormality -Color (Rocio-wound Skin Appearance) Assessed No Abnormality -Temperature (Rocio-wound Skin No Abnormality No Abnormality Appearance) (Pt Warm) (Pt Warm) -Tenderness on Palpation (Rocio-wound No Skin Appearance) -Ulcer Cleansing Rinsed/ Irrigated with Saline -Foul Odor after Cleansing No No WC - Nurse 2 - General Ulcer CM Notes Start: 11/02/24 11:03 Freq: Status: Active Protocol: Activity Type Activity Date Activity User E-sign Co-sign Detail Recorded Client Recorded Date Recorded By Document 11/02/24 11:16 [facility] [id number] 11/02/24 11:29 BM Document 11/16/24 11:25 [facility] [id number] 11/16/24 11:35 [facility] 11/02/24 11/16/24 11:16 11:25 Wound Center Nurse 2 7 LT GREAT TOE -Time 11:16 11:25 -Correct Patient Yes -Correct Side, Site, Position Yes -Correct Procedure Yes -Procedure Performed Yes No -Type of Procedure Debridement -Clinical Debridement Subcutaneous -Tissue Removed Subcutaneous -Post Debridement (cm) - Length 0.1 0 -Post Debridement (cm) - Width 0.1 0 -Post Debridement (cm) - Depth 0.1 0 -Total Square (Post) (cm) 0.01 0 -Area of Debridement (cm) - Length 0.1 0 -Area of Debridement (cm) - Width 0.1 0 -Total Square (Area) (cm) 0.01 0 -Tunneling No -Undermining/Tunneling No -Circular Undermining No -Wound/Ulcer Outcome Not Healed Healed- Epithelialized -Ulcer Cleansing Rinsed/ Irrigated with Saline -Foul Odor after Cleansing No -Bioengineered Tissue No -Bleeding Controlled with Pressure NA -Treatment Response Procedure Tolerated Well -Offloading Yes -Type of Offloading Other -Other Type of Offloading offload pad in shoe -Debridement - Subq, 1st 20sq cm Yes Pain Scale: 0-10 Numeric Is Patient Pain Free? Yes Yes WC - Nurse 3 - General Ulcer D/C NN Start: 11/02/24 11:03 Freq: Status: Active Protocol: Activity Type Activity Date Activity User E-sign Co-sign Detail Recorded Client Recorded Date Recorded By Document 11/02/24 11:32 [facility] [id number] 11/02/24 11:32 BM Document 11/16/24 11:35 [facility] [id number] 11/16/24 11:35 BMF 11/02/24 11/16/24 11:32 11:35 Wound Care Center Nurse 3 7 LT GREAT TOE -Primary Dressing Applied Silicone Border Foam 4x4 -Other Dressing border to l lat foot callus, and bandaid to l great toe to pad protect -Silicone Border Foam 4x4 1 Treatment Response Procedure Tolerated Well Pain Scale: 0-10 Numeric Is Patient Pain Free? Yes Yes WC - Visit Discharge Discharge Condition Stable Stable Ambulatory Status Ambulatory Ambulatory Transportation Private Auto Private Auto Notes: healed. offloading pads added to shoe Assessment/Plan Assessment/Plan (1) Non-pressure chronic ulcer of other part of left foot with fat layer exposed: CODE(S): L97.522 - Non-pressure chronic ulcer of other part of left foot with fat layer exposed (2) Hallux limitus of left foot: CODE(S): M20.5X2 - Other deformities of toe(s) (acquired), left foot (3) Type 2 diabetes mellitus with diabetic polyneuropathy: CODE(S): E11.42 - Type 2 diabetes mellitus with diabetic polyneuropathy (4) Venous insufficiency (chronic) (peripheral): CODE(S): I87.2 - Venous insufficiency (chronic) (peripheral) PLAN: Plan Patient seen and evaluated Predebridement measurement: None Site did not undergo debridement as noted in the clinical panel above. Postdebridement measurement healed. Discussed continuing to pad and protect with Band-Aid in addition to offloading of the first metatarsal phalangeal joint. [place] offloading pad remains in place under his certified executive chef insert in his shoe. He will continue to wear the offloading insert at all times for sufficient offloading of the interphalangeal joint. I did place 2 additional offloading pads to the certified executive chef insert underlying his fifth metatarsal styloid process/base to aid in offloading of hyperkeratotic sites. There is improvement with less hyperkeratosis and subdermal hemorrhaging with the current offloading padding and thus will be continued. Currently ulceration has healed. I have previously discussed his ulceration is secondary to functional hallux limitus. Biomechanics and etiology have been discussed. Discussed continued diet for glycemic control and to aid in wound healing. He was instructed to continue to wear shoes at all times of ambulation and to avoid barefoot ambulation, this includes sock. He is understanding of this. Discussed continued padding and protecting of his prominent styloid process/base of fifth metatarsal of each foot to prevent ulceration. With healed status of his ulcerative site he is being discharged from the wound care center today. He will return and continue to follow with Dr. Diaz in office. Will return to wound care center as needed or sooner for any questions or concerns.
== END 2024-11-29 23:59 | disposition home or self-care (01) ==
LOC: WC 10:45
PROVIDERS: PCP Preventive Medicine Occupational Medicine; Referring Provider Preventive Medicine Occupational Medicine; Visit Provider Student in an Organized Health Care Education/Training Program
DX: E11.621 Type 2 diabetes mellitus with foot ulcer (principal); L97.522 Non-pressure chronic ulcer of other part of left foot with fat layer exposed; E11.42 Type 2 diabetes mellitus with diabetic polyneuropathy; E11.51 Type 2 diabetes mellitus with diabetic peripheral angiopathy without gangrene; L85.9 Epidermal thickening, unspecified; M20.5X2 Other deformities of toe(s) (acquired), left foot; I87.2 Venous insufficiency (chronic) (peripheral); R60.0 Localized edema; G47.33 Obstructive sleep apnea (adult) (pediatric); Z79.899 Other long term (current) drug therapy
CPT/HCPCS: 11042; 99213; G0463

== ENCOUNTER 2024-12-05 18:38 | Emergency (ER) | payer MEDICARE, BC, SELFPAY ==
[2024-12-05 18:39] VITALS: BP 132/69; PULSE 58; RESP 18; TEMP 36.5; O2SAT 99; BMI 27.0
--- NOTE | 2024-12-05 18:54 | EDS_ITS ---
HPI History of Present Illness Chief Complaint: Headache Informant: patient Onset/Context/Timing Onset: Days Context: Gradual Timing: Continuous Quality -Headache: Positive for Dull, Throbbing and Tightness Current Severity: Mild Maximum Severity: Mild Associated Symptoms/Injury Associated Symptoms: Negative for Fever, Nausea, Vomiting, Sore Throat, Sinus Pressure, Numbness, Tingling, Preceding Aura, Visual Changes, Blurred Vision, Photophobia or Visual Loss Injury - SARABIA: Negative for Direct Trauma, Fall or Assault Narrative Narrative: 69-year-old male states on Wednesday had a headache. Initially he may have had some slurred speech for several minutes that is since resolved. Denies any fall injury or trauma. He is on no blood thinners. He denies a history of chronic headaches. He had an MRI in June which was negative. He denies any fever or sinus congestion. No neck pain. No prior brain or neck surgery. Prior similar symptoms: Yes Recent Illness/Hospitalization: No PFSH PFSH Medical History Wears glasses Bone spur of foot Loss of hearing Anxiety Marijuana use Arthritis Syncope Heartburn Former smoker COPD (chronic obstructive pulmonary disease) CPAP (continuous positive airway pressure) dependence Leg cramps History of edema History of pain when walking Raynaud disease Neuropathy Home Medications ?Medication ?Instructions ?Recorded ?Last Taken ?Type multivitamin (Daily Multi-Vitamin 1 tab PO DAILY 06/0709/05/23 History tablet) turmeric 100 mg-carlos 150 1 cap PO DAILY 06/07/2311/23 History mg-olive 50 mg-oreg 150 mg-capryl capsule omega-3 fatty acids-fish oil 360 1 cap PO DAILY 09/05/23 History mg-1,200 mg capsule (Fish Oil) polyethylene glycol 3350 17 4 g PO DAILY PRN constipat ion 08/20/23 Unknown History gram/dose oral powder (Miralax) gabapentin 400 mg capsule 400 mg PO DAILY 05/23/24 Unk nown History fluticasone propionate 50 1 spray intranasal BID nasal 06/18/24 Unknown Rx mcg/actuation nasal congestion #16 grams spray,suspension Allergy/AdvReac Type Severity Reaction Status Date / Time grass pollen Allergy runny nose Verified 12/05/24 18:39 Family History Father Diabetes ALYSSA (obstructive sleep apnea) Surgical History Hx of colonoscopy Hx of LASIK Hx of oral surgery Hx of right cataract extraction Hx of left cataract extraction Hx of appendectomy Social History household members: none current occupational status: retired Smoking Status: Never smoker second hand exposure: No alcohol intake: current alcohol intake frequency: a few times a week details: stopped drinking one year ago substance use type: does not use what type of physical activity do you participate in: walking and bicycling anam/orthodoxy: Catholic ROS ROS ED ROS Narrative Headache. Denies other symptoms currently. Constitutional Constitutional ED: Denies chills or fever(s) Eyes Eyes: Denies blurry vision ENT ENT ED: Denies ear pain Cardiovascular Cardiovascular: Denies chest pain Respiratory/Chest Respiratory/Chest: Denies cough or dyspnea Gastrointestinal Gastrointestinal: Denies abdominal pain, diarrhea, nausea or vomiting Genitourinary Genitourinary ED: Denies dysuria or hematuria Musculoskeletal Musculoskeletal: Denies arthralgias or back pain Integumentary Denies abscess Neurologic Neurologic: Reports headache(s); Denies paresthesias or weakness Psychiatric Psychiatric: Denies anxiety Endocrine Endocrinology: Denies polydipsia, polyphagia or polyuria Hematologic/Lymphatic Hematologic/Lymphatic: Denies easy bleeding, easy bruising or lymphadenopathy Allergic/Immunologic Allergic/Immunologic ED: Denies mouth swelling, tongue swelling or urticaria EXAM Physical Exam Narrative Exam Narrative: 69-year-old male sitting upright in bed. Vital signs are stable afebrile. Blood pressure 132/69. He does not appear to be septic toxic is no distress. There is no family with him. H EENT exam pupils round reactive light. Extra motions are intact. No signs of trauma. Nontender. No frontal maxillary sinus tenderness. Moist mucous membranes. Tongue midline. Normal speech. No facial droop. Neck nontender. No lymphadenopathy. No meningismus. Lungs clear to auscultation bilaterally. Heart regular rhythm rate about 60 no murmur. Chest wall ribs nontender. Abdomen soft nontender. Moving all 4 extremities. 5 out of 5 ground support equipment fitter strength bilaterally. Dorsi plantarflexion intact. No drift to either upper or lower extremities. Rapid hand movements normal. Fingertip to nose normal. Patient got up stood and walked out of the room into the hallway and back without any difficulty and no ataxia. Back exam normal. Neurologic exam normal. NIH 0. Const Vital Signs: 12/05/24 18:39 Temperature 97.7 F L Temperature Source Temporal Pulse Rate 58 L Respiratory Rate 18 Blood Pressure 132/69 H Blood Pressure Mean 90 Pulse Ox 99 Oxygen Delivery Method Room Air Positive well nourished and well developed; Negative for obese, cachectic, contractures or unkempt General Appearance ED: well developed and NAD; Negative for unkempt, cachectic, contractures, cyanotic, diaphoretic or pallor Nutritional Appearance: Negative for cachectic or obese HEENT Reports normocephalic and moist mucous membranes atraumatic; Negative for trauma, tenderness, temporal artery tenderness or vesicular rash Face and Sinus: Negative for sinus tenderness Eyes PERRL and EOMs intact bilaterally General Eye ED: Negative for pale conjunctiva or scleral icterus Neck no lymphadenopathy, supple, no meningeal signs and no JVD Resp normal respiratory effort and clear to auscultation bilaterally Cardio regular rate, regular rhythm, S1 normal heart sound, S2 normal heart sound and no murmurs Rate: Negative for bradycardia or tachycardic Rhythm: Negative for abnormal rhythm GI non-tender and non-distended Palpation: soft; Negative for firm or tender Back/Spine no CVA tenderness General Back: Negative for CVA tenderness Cervical Spine: Negative for cervical spine tenderness Thoracic Spine / Upper Back: Negative for thoracic spinal tenderness Lumbar Spine / Lower Back: Negative for lumbar spinal tenderness Extremity normal to inspection and full ROM General Extremety ED: Negative for edema or tenderness General Extremity: Negative for edema Neuro oriented x3 and CN's II-XII intact bilaterally Neuro Narrative: NIH equals 0. He walks without any difficulty. Sensorium / Orientation: awake, alert, oriented to person, oriented to place and oriented to time; Negative for orientation impaired or lethargic Coordination / Balance: [id number] test normal and [id number] test normal Speech: speech normal Gait (Neuro): normal gait Motor Exam: strength 5/5 throughout Psych mental status grossly normal Appearance: Negative for unkempt Mood & Affect: Negative for tearful Skin General Skin Exam: elasticity normal; Negative for turgor normal, jaundice or pallor Lesions: no lesions Rashes: no rashes MDM MDM MDM Narrative Medical decision making narrative: 69-year-old male reported headache and possibly slurred speech on Wednesday the headache has been constant but the other symptoms resolved. He denies any trouble using his arms or legs. He denies any weakness. He denies any numbness. He is never had a stroke or mini stroke there is been no trauma. Discussed a completely normal exam and neurologic exam at this time. His NIH is 0. I will do a CT of his brain. He had an MRI in June of last year which was unremarkable. Chronic changes. Screening labs to be obtained. Be treated for his headache with Compazine, IV fluids and Tylenol and reassess. Repeat exam at 8:16 PM patient doing well. Neurologic exam remains normal. He is awake alert. Said his headaches resolved after receiving Tylenol p.o. and Compazine IV. We went over his lab results and CAT scan is comfortable being discharged home with outpatient follow-up as needed. History & Record Review Discussion w/independent historian: Patient Additional record(s) reviewed:: Prior inpatient record, Prior outpatient record, Prior ED visit and Prior labs Lab Data Attestation: I reviewed the patient's lab results. Lab results narrative: CBC shows a white count of 5. H&H 13 and 40. Platelets 240. Electrolytes show a gap of 10. BUN 25 creatinine 0.9. Glucose 94. CAT scan shows no acute abnormality. Read by the radiologist reviewed by me. Labs: Laboratory Results - last 24 hr 12/05/24 19:02 WBC 5.4 RBC 4.20 L Hgb 13.6 Hct 40.1 MCV 95.5 H MCH 32.4 H MCHC 33.9 RDW Std Deviation 46.2 H RDW Coeff of Beatrice 13.1 Plt Count 240 MPV 10.3 Immature Gran % (Auto) 0.200 Neut % (Auto) 60.9 Lymph % (Auto) 31.1 [place] % (Auto) 5.9 Eos % (Auto) 1.5 Baso % (Auto) 0.4 Absolute Neuts (auto) 3.3 Absolute Lymphs (auto) 1.69 Nucleated RBC % 0 Sodium 139 Potassium 4.1 Chloride 105 Carbon Dioxide 25.2 Anion Gap 10 BUN 25 H Creatinine 0.90 Estim Creat Clear Calc 85.02 Est GFR (MDRD) Non-Af 93 BUN/Creatinine Ratio 27.7 H Glucose 94 Calcium 9.4 Radiography Diagnostic Testing: Clinical Impression(s) from Imaging Studies Brain CT 12/05/24 19:47 IMPRESSION: No acute intracranial abnormalities are demonstrated. Reading Location: [facility] Discharge Plan Triage Chief Complaint: Headache ED Provider: Janes Lara Dx/Rx/DC Orders Clinical Impression: Headache Instructions: ED Headache Unspecified Prescriptions: No Action omega-3 fatty acids-fish oil [Fish Oil] 360-1,200 mg capsule 1 cap PO DAILY polyethylene glycol 3350 [Miralax] 17 gram/dose powder 4 g PO DAILY PRN (Reason: constipation) multivitamin [Daily Multi-Vitamin] Tablet 1 tab PO DAILY [id number]-capry 100 mg-150 mg- 50 mg-150 mg capsule 1 cap PO DAILY fluticasone propionate 50 mcg/actuation spray,suspension 1 spray intranasal BID Qty: 16 0RF Rx Instructions: administer into each nostril gabapentin 400 mg capsule 400 mg PO DAILY Primary Care Provider: Stephen Gomez Referrals: Stephen Gomez DO [Primary Care Provider] - As Needed Activity Restrictions/Additional Instructions: The CAT scan your brain and your labs look good. No specific cause for your headache. Tylenol for pain. Follow-up with your doctor if you keep getting recurrent headaches or feeling worse. Print Language: Irish Disposition Disposition: Home, Self Care
[2024-12-05] MEDS: Acetaminophen 500 MG Tablet 1000 MG PO (19:11)
[2024-12-05] MEDS: 0.9% Normal Saline (500mL Bag) 500 ML 1000 ML IV (19:11)
[2024-12-05 19:14] LABS: Absolute Lymphocyte Count 1.69 X10^3/uL (0.83-4.51); Absolute Neutrophil Count 3.3 X10^3/uL (2.0-7.7); Basophil# 0.02 X10^3/uL; Basophil% 0.4 % (0-1); Eosinophil# 0.08 X10^3/uL; Eosinophils% 1.5 % (0-5); Hematocrit 40.1 % (40-54); Hemoglobin 13.6 g/dL (13.0-16.5); Lymphocyte # 1.69 X10^3/ul (0.83-4.51); Lymphocyte % 31.1 % (19-41); Mean Corp Hgb Conc 33.9 g/dL (32-36); Mean Corpuscular Hgb 32.4 pg (27.0-32.0); Mean Corpuscular Volume 95.5 fL (80-94); Mean Platelet Vol. 10.3 fl (6.2-12.0); Monocyte# 0.32 X10^3/uL; Monocyte% 5.9 % (0-10); NRBC Flagged by Analyzer 0 % (0-5); Neutrophil # 3.31 X10^3/uL (2.7-7.7); Neutrophil % 60.9 % (47-70); Platelet Count 240 K/mm3 (150-450); RBC Distribution Width CV 13.1 % (11.6-14.6); RBC Distribution Width SD 46.2 fl (35.1-43.9); White Blood Count 5.4 K/mm3 (4.4-11.0)
[2024-12-05] MEDS: proCHLORPERazine 10 MG/2 ML Vial IV (19:16)
[2024-12-05 19:29] LABS: Anion Gap 10 (5-15); BUN 25 mg/dL (4-19); BUN/Creat Ratio 27.7 RATIO (10-20); Calcium,Total 9.4 mg/dL (7.6-11.0); Carbon Dioxide 25.2 mmol/L (21.0-32.0); Chloride 105 mmol/L (98-108); EST Glomerular Filtration Rate 93 (>60); Estimated Creatinine Clearance 85.02 ml/min (50-250); Glucose 94 mg/dL (70-99); Potassium 4.1 mmol/L (3.3-5.1); Sodium Level 139 mmol/L (133-145)
--- NOTE | 2024-12-05 19:47 | CT_ITS ---
PROCEDURE: BRAIN/HEAD WITHOUT CONTRAST 12/05/2024 REASON FOR EXAM: HEADACHE TECHNIQUE: Contiguous axial scans of 3.75 mm slice thicknesses with sagittal and coronal reconstruction images. One or more dose reduction techniques were utilized (e.g., automated exposure control, adjustment of mA and/or kv according to patient size, use of iterative reconstruction technique). RADIATION DOSE SUMMARY: DLP: 897.35 mGycm COMPARISON: No relevant prior FINDINGS: Cerebrum: No intraparenchymal hemorrhage. No abnormal areas of encephalomalacia. No mass effect or midline shift. Ariza-white matter differentiation is normal. Ventricles and cisterns: Appropriate size for patient's age. Extra-axial fluid: Unremarkable. Posterior fossa: Unremarkable cerebellum. No abnormalities involving the brainstem. Paranasal sinuses: Normal. Vasculature: Unremarkable. Mastoid air cells: unremarkable. Calvarium: Unremarkable. Soft tissues: Unremarkable.. Artifact from dental enhancements. CT/Brain/Head without Contrast IMPRESSION: No acute intracranial abnormalities are demonstrated. Reading Location: [facility]
[2024-12-05 20:38] VITALS: BP 132/71; PULSE 55; RESP 16; TEMP 37.1; O2SAT 99
== END 2024-12-05 20:38 | disposition home or self-care (01) ==
PROVIDERS: Emergency Provider Emergency Medicine; PCP Preventive Medicine Occupational Medicine; Visit Provider Emergency Medicine
DX: R51.9 Headache, unspecified (principal); J44.9 Chronic obstructive pulmonary disease, unspecified; Z79.899 Other long term (current) drug therapy; Z87.891 Personal history of nicotine dependence
CPT/HCPCS: 70450; 80048; 85025; 96361; 96374; 99283; A4216

== ENCOUNTER → 2024-12-13 | Outpatient (CLI) | payer MEDICARE, BC, SELFPAY ==
--- NOTE | 2024-12-13 12:49 | RAD_ITS ---
PROCEDURE: FOOT MIN 3 VIEWS 12/13/2024 REASON FOR EXAM: ULCER, BONE SPURS TECHNIQUE: 3 views of the right foot. Weightbearing COMPARISON: 07/09/2021 FINDINGS: No fracture or dislocation. Suggestion of soft tissue bunion base of the 5th metatarsal. Joint spaces appear within limits. Small to moderate plantar and small Achilles surface calcaneal enthesophyte, spur formation. Cuneiform metatarsal dorsal joint osteoarthrosis, spur formation seen on the lateral view. Vascular calcifications. Ankle osteoarthrosis. No periosteal reaction or osseous destructive change identified. RAD/Foot min 3 Views IMPRESSION: Suggestion of soft tissue bunion base of the 5th metatarsal. Small to moderate plantar and small Achilles surface calcaneal enthesophyte, sp ur formation. Reading Location: [id number]
--- NOTE | 2024-12-13 12:49 | RAD_ITS ---
PROCEDURE: FOOT MIN 3 VIEWS 12/13/2024 REASON FOR EXAM: ULCER, BONE SPURS TECHNIQUE: 3 views of the left foot. Weightbearing FINDINGS: No fracture or dislocation. The joint spaces appear within limits. Moderate plantar and small Achilles surface calcaneal enthesophyte, spur formation. Vascular calcifications noted. Ankle osteoarthrosis. Appearance of a soft tissue bunion over the base of the 5th metatarsal. No periosteal reaction or osseous destructive change. RAD/Foot min 3 Views IMPRESSION: Moderate plantar and small Achilles surface calcaneal enthesophyte, spur format ion. Appearance of a soft tissue bunion over the base of the 5th metatarsal. No periosteal reaction or osseous destructive change. Reading Location: [id number]
== END | disposition home or self-care (01) ==
LOC: MTRAD 12:48
PROVIDERS: PCP Preventive Medicine Occupational Medicine; Referring Provider Podiatrist Foot & Ankle Surgery; Visit Provider Podiatrist Foot & Ankle Surgery
DX: M77.8 Other enthesopathies, not elsewhere classified (principal)
CPT/HCPCS: 73630

== ENCOUNTER 2024-12-27 10:30 | Outpatient (RCR) | payer MEDICARE, BC, SELFPAY ==
[2024-11-30 00:13] VITALS: BP 128/60; PULSE 57; RESP 16; TEMP 36.5
[2024-12-13 10:58] VITALS: BP 125/61; PULSE 55; RESP 18; TEMP 36.2
--- NOTE | 2024-12-13 11:51 | PCM.WC.HP ---
History of Present Illness Date of Service: 12/13/24 Chief Complaint: Left hallux ulceration History of Wound: Patient is a 69-year-old male who was referred to the wound care center for concern of a full-thickness wound to the lateral aspect of his right foot. Patient was seen at the wound care center and treated by Dr. Wei and healed. He did follow back up with Dr. French who treated his full-thickness wounds with offloading pads with some relief however there has been new breakdown of the skin to the outside of the left foot at the level of the styloid process fifth metatarsal. Treatment has been with self with triple antibiotic and Band-Aid. He is concerned for infection. Denies trauma. Denies constitutional symptoms. No other pedal complaints at this time. Progress of Wound: Stable full-thickness wound lateral right foot. No sign of infection. [facility] Medical History Wears glasses Bone spur of foot Loss of hearing Anxiety Marijuana use Arthritis Syncope Heartburn Former smoker COPD (chronic obstructive pulmonary disease) CPAP (continuous positive airway pressure) dependence Leg cramps History of edema History of pain when walking Raynaud disease Neuropathy Home Medications ?Medication ?Instructions ?Recorded ?Last Taken ?Type multivitamin (Daily Multi-Vitamin 1 tab PO DAILY 06/07/23 09/05/23 History tablet) turmeric 100 mg-carlos 150 1 cap PO DAILY 06/07/23 09/05/23 History mg-olive 50 mg-oreg 150 mg-capryl capsule omega-3 fatty acids-fish oil 360 1 cap PO DAILY 08/20/23 09/05/23 History mg-1,200 mg capsule (Fish Oil) polyethylene glycol 3350 17 4 g PO DAILY PRN constipation 08/20/23 Unknown History gram/dose oral powder (Miralax) gabapentin 400 mg capsule 400 mg PO DAILY 05/23/24 Unknown History fluticasone propionate 50 1 spray intranasal BID nasal 06/18/24 Unknown Rx mcg/actuation nasal congestion #16 grams spray,suspension doxycycline hyclate 100 mg capsule 100 mg PO BID 2 weeks #28 caps 12/13/24 Unknown Rx Allergy/AdvReac Type Severity Reaction Status Date / Time grass pollen Allergy runny nose Verified 12/05/24 18:39 Family History Father Diabetes ALYSSA (obstructive sleep apnea) Surgical History Hx of colonoscopy Hx of LASIK Hx of oral surgery Hx of right cataract extraction Hx of left cataract extraction Hx of appendectomy Social History household members: none current occupational status: retired Smoking Status: Never smoker second hand exposure: No alcohol intake: current alcohol intake frequency: a few times a week details: stopped drinking one year ago substance use type: does not use what type of physical activity do you participate in: walking and bicycling anam/tenriism: Sabianist Vital Signs Vital Signs Vital Signs: 12/13/24 10:58 Temperature 97.2 F L Temperature Source Temporal Pulse Rate 55 L Respiratory Rate 18 Blood Pressure 125/61 H Blood Pressure Mean 82 Blood Pressure Source Monitor Blood Pressure Position Sitting Blood Pressure Location Right Arm Oxygen Delivery Method Room Air Physical Exam Narrative Vascular: DP and PT pulse are palpable to the bilateral extremity. CFT is brisk. Skin temperature is warm to warm from proximal ankles to distal digits bilateral. Nonpitting edema appreciated to the right foot. Neurological: Light touch intact. Protective sensation is intact. Patient response to painful stimuli. Dermatological: Evidence of full-thickness wound to the lateral aspect of the right foot at the level the styloid process. Full-thickness wound measures 0.3 x 0.5 x 0.2 cm. Wound base is granular. Hyperkeratotic periwound is appreciated. Mild malodor is noted. Negative probe to bone. Evidence of hyperkeratotic tissue to the lateral left foot at the level of the styloid process fifth metatarsal. No sign of infection. Evidence of hyperkeratotic tissue to the plantar aspect of the distal phalanx of the left hallux. Excisional debridement down to and including subcutaneous tissue with a #15 blade and sterile nail nipper to the styloid process of the right foot this was done without incident. Predebridement measurement was callus. Postdebridement measurement is 0.3 x 0.5 x 0.2 cm. Musculoskeletal: Strength 5 out of 5 in all quadrants bilateral. Palpable exostosis at the level of the navicular. Palpable exostosis is appreciated to the level of the styloid process bilateral foot. Hallux malleus deformity is appreciated left foot. Upon weightbearing the patient has mild decrease in medial longitudinal arch. Rest of cooking in stance position is 0 degrees in neutral. No pain with calf pressure. Debridement Note Debridement Note Debridement Free Text: Excisional debridement down to and including subcutaneous tissue with a #15 blade and sterile nail nipper to the styloid process of the right foot this was done without incident. Predebridement measurement was callus. Postdebridement measurement is 0.3 x 0.5 x 0.2 cm. Post-Debridement Measurements and Additional Note: Post-Debridement Measurements/Treatment - Nurse 1 - General Ulcer Assessment Start: 12/13/24 10:58 Freq: Status: Active Protocol: MATTHEW Activity Type Activity Date Activity User E-sign Co-sign Detail Recorded Client Recorded Date Recorded By Document 12/13/24 10:58 AK [id number] 12/13/24 11:08 AK 12/13/24 10:58 - Today's Visit Information Type of service Initial Visit Arrival Mode Ambulatory Patient Identification Verified (Name & Yes ) Safety Precautions Fall Prevention Vital Signs Temperature (97.8 F-99.1 F) 97.2 F L Temperature Source Temporal Pulse Rate (60-100) 55 L Pulse Location Monitor Respiratory Rate (12-18) 18 Respiratory rate source Observation Oxygen Delivery Method Room Air Blood Pressure (90/60-120/80) 125/61 H Blood Pressure Mean 82 Source Monitor Position Sitting Blood Pressure Location Right Arm History Since Last Visit- (Skip if this is Patient's initial visit) Has dressing in place as prescribed Yes Has compression in place as prescribed Yes Has offloadiing in place as prescribed Yes Experienced any changes in pain level or Yes management Left Footwear Regular Shoe Right Footwear Regular Shoe Pain Scale: 0-10 Numeric Is Patient Pain Free? Yes - Nurse 1 - General Ulcer Measurement Start: 12/13/24 10:58 Freq: Status: Active Protocol: Activity Type Activity Date Activity User E-sign Co-sign Detail Recorded Client Recorded Date Recorded By Document 12/13/24 10:58 AK [id number] 12/13/24 11:08 AK 12/13/24 10:58 Wound Center Nurse 1 #8 Right Lateral Foot -Current Size (cm) - Length 0.1 -Current Size (cm) - Width 0.1 -Current Size (cm) - Depth 0.1 -Total Square Cm 0.01 -Date of Last Picture (Recall this 12/13/24 field) -Photo Taken Yes -Epithelialization Large 67-100% -Tunneling No -Undermining/Tunneling No -Circular Undermining No -Exudate Amt None Present -Wound Margin Thickened -Granulation Amt Medium (34-66%) -Granulation Quality Pale,[place] -Necrosis Amt Medium (34-66%) -Necrotic Tissue Type Adherent Slough -Texture (Rocio-wound Skin Appearance) Assessed -Moisture (Rocio-wound Skin Appearance) Assessed -Color (Rocio-wound Skin Appearance) Assessed -Temperature (Rocio-wound Skin No Abnormality Appearance) (Pt Warm) -Tenderness on Palpation (Rocio-wound No Skin Appearance) -Ulcer Cleansing Soap and Water -Foul Odor after Cleansing No -Anesthetic Used 5% Lidocaine Gel Lower Limb Edema Present NA WC - Nurse 2 - General Ulcer CM Notes Start: 12/13/24 10:58 Freq: Status: Active Protocol: Activity Type Activity Date Activity User E-sign Co-sign Detail Recorded Client Recorded Date Recorded By Document 12/13/24 11:22 PATRICIA [id number] 12/13/24 11:31 PATRICIA 12/13/24 11:22 Wound Center Nurse 2 #8 Right Lateral Foot -Time 11:22 -Correct Patient Yes -Correct Side, Site, Position Yes -Correct Procedure Yes -Procedure Performed Yes -Type of Procedure Debridement -Clinical Debridement Subcutaneous -Tissue Removed Subcutaneous -Post Debridement (cm) - Length 0.3 -Post Debridement (cm) - Width 0.5 -Post Debridement (cm) - Depth 0.2 -Total Square (Post) (cm) 0.15 -Area of Debridement (cm) - Length 0.3 -Area of Debridement (cm) - Width 0.5 -Total Square (Area) (cm) 0.15 -Tunneling No -Undermining/Tunneling No -Circular Undermining No -Wound/Ulcer Outcome Not Healed -Ulcer Cleansing Rinsed/ Irrigated with Saline -Foul Odor after Cleansing No -Bioengineered Tissue No -Bleeding Controlled with Pressure -Treatment Response Procedure Tolerated Well -Offloading No -Debridement - Subq, 1st 20sq cm Yes Pain Scale: 0-10 Numeric Is Patient Pain Free? Yes Assessment/Plan Assessment/Plan (1) Non-pressure chronic ulcer of other part of right foot with fat layer exposed: CODE(S): L97.512 - Non-pressure chronic ulcer of other part of right foot with fat layer exposed PLAN: Patient was examined and evaluated. All findings were discussed with the patient. All questions were answered to the patient's satisfaction. Excisional debridement down to and including subcutaneous tissue with a #15 blade and sterile nail nipper to the styloid process of the right foot this was done without incident. Predebridement measurement was callus. Postdebridement measurement is 0.3 x 0.5 x 0.2 cm. Culture was taken to rule out any underlying bacterial infection. Patient be placed on doxycycline 100 mg twice daily until culture returned. Will adjust antibiotics as needed. The area was wiped clean and patted dry. The right foot full-thickness wound was dressed with Betadine paint sterile Band-Aid. Patient to do daily dressing changes. Patient will be getting bilateral weightbearing foot films at the hospital today for further discussion regarding surgical intervention to rebalance the patient's mechanics to the right and left foot. Follow-up at the wound care center with Dr. Adhikari in 1 week.
--- NOTE | 2024-12-13 13:32 | WC ---
PHOTO 12/13/24 RIGHT LATERAL FOOT
[2024-12-20 10:52] VITALS: BP 124/63; PULSE 58; RESP 16; TEMP 36.2
--- NOTE | 2024-12-20 12:50 | PN.PCM_ITS ---
History of Present Illness Date of Service: 12/20/24 Chief Complaint: Left hallux ulceration History of Wound: Patient is a 69-year-old male who was referred to the wound care center for concern of a full-thickness wound to the lateral aspect of his right foot. Patient was seen at the wound care center and treated by Dr. Wei and healed. He did follow back up with Dr. French who treated his full-thickness wounds with offloading pads with some relief however there has been new breakdown of the skin to the outside of the left foot at the level of the styloid process fifth metatarsal. Treatment has been with self with triple antibiotic and Band-Aid. He is concerned for infection. Denies trauma. Denies constitutional symptoms. No other pedal complaints at this time. Progress of Wound: Stable full-thickness wound lateral right foot. No sign of infection. Subjective Subjective Patient is a 69-year-old male presenting to wound care center today for follow- up evaluation of full-thickness wound to the lateral aspect of the right foot. Patient has been dressing changes daily as discussed. He did get his x-rays and is here for evaluation and treatment of his open wound to the right foot. He is doing well. He is wearing wider shoes with no pain. Denies any new onset of trauma. Denies constitutional symptoms. No other pedal complaints at this time. Objective Data Objective Data Vital Signs: Vital Signs Temp Pulse Resp BP O2 Del Method 97.2 F L 58 L 16 124/63 H Room Air 12/20/24 10:52 12/20/24 10:52 12/20/24 10:52 12/20/24 10:52 12/13/24 10:58 Oxygen Delivery Method Room Air Lab / Micro Data Micro: Microbiology 12/13/24 11:30 Ulcer, Decubitus - Right Foot Gram Stain - Final 12/13/24 11:30 Ulcer, Decubitus - Right Foot Wound Culture - Final Staphylococcus lugdunensis Stenotrophomonas maltophilia 12/13/24 11:30 Ulcer, Decubitus - Right Foot Anaerobic Culture - Final Anaerobic cocci Physical Exam Narrative Vascular: DP and PT pulse are palpable to the bilateral extremity. CFT is brisk. Skin temperature is warm to warm from proximal ankles to distal digits bilateral. Nonpitting edema appreciated to the right foot. Neurological: Light touch intact. Protective sensation is intact. Patient response to painful stimuli. Dermatological: Evidence of full-thickness wound to the lateral aspect of the right foot at the level the styloid process. Full-thickness wound measures 0.3 x 0.3 x 0.1 cm. Wound base is granular. Hyperkeratotic periwound is appreciated. Malodor improved. No probe to bone. Excisional debridement down to and including subcutaneous tissue with a #15 blade and sterile nail nipper to the styloid process of the right foot this was done without incident. Predebridement measurement was callus. Postdebridement measurement is 0.3 x 0.3 x 0.1 cm. Musculoskeletal: No pain on palpation to the full-thickness right foot. No pain with calf pressure. Const alert, oriented x3 and no apparent distress General Appearance: cooperative HEENT normocephalic Eyes General Eye: normal appearance of both eyes Neck General: normal visual inspection Lymph Lymphatic: no lymphadenopathy noted and no lymphedema noted Resp normal respiratory effort Cardio regular rate and regular rhythm Extremity no calf tenderness Extremity Narrative: Left lower extremity: Vascular: DP and PT pulses weakly palpable. CFT less than 5 seconds to digits. Normal temperature gradient. Hair growth is diminished to digits. Neurologic: There is decreased protective sensation to the foot with 5.07g Naturita Joo monofilament. Musculoskeletal: Muscle strength 5 of 5 age-appropriate. There is decreased range of motion of the ankle joint dorsiflexion with the knee extended without pain or crepitus. There is prominent styloid process/base of fifth metatarsal noted. Does have tenderness to palpation. There is hyperkeratosis about the site secondary to pressure. Decreased range of motion of the first metatarsophalangeal joint dorsiflexion without pain or crepitus with foot unloaded and further reduction of motion with foot loaded consistent with a func tional hallux limitus. Normal range of motion of the interphalangeal joint. Dermatologic: Skin does appear healthy with normal turgor. Does have hyperkeratosis about the base of the fifth metatarsal as stated above. There is also improving hyperkeratosis with subdermal hemorrhaging at the plantar aspect of the interphalangeal joint secondary to his hallux limitus. No signs of infection. Right lower extremity: Vascular: DP and PT pulses weakly palpable. CFT less than 5 seconds to digits. Normal temperature gradient. Hair growth is diminished to digits. Neurologic: There is decreased protective sensation to the foot with 5.07g Naturita Joo monofilament. Musculoskeletal: Muscle strength 5 of 5 age-appropriate. There is decreased range of motion of the ankle joint dorsiflexion with the knee extended without pain or crepitus. There is prominent styloid process/base of fifth metatarsal noted. Does have tenderness to palpation. There is hyperkeratosis about the site secondary to pressure. Dermatologic: Skin does appear healthy with normal turgor. Does have hyperkeratosis about the base of the fifth metatarsal as stated above. Skin no rashes or lesions noted and skin turgor normal Neuro moves all extremities Debridement Note Debridement Note Debridement Free Text: Excisional debridement down to and including subcutaneous tissue with a #15 blade and sterile nail nipper to the styloid process of the right foot this was done without incident. Predebridement measurement was callus. Postdebridement measurement is 0.3 x 0.3 x 0.1 cm. Post-Debridement Measurements and Additional Note: Post-Debridement Measurements/Treatment - Nurse 1 - General Ulcer Assessment Start: 12/13/24 10:58 Freq: Status: Active Protocol: WC.LOWBILLT Activity Type Activity Date Activity User E-sign Co-sign Detail Recorded Client Recorded Date Recorded By Document 12/13/24 10:58 [place] [id number] 12/13/24 11:08 [place] Document 12/20/24 10:52 [id number] 12/20/24 11:01 12/13/24 12/20/24 10:58 10:52 - Today's Visit Information Type of service Initial Visit Follow-up Visit (Physician/SENIOR SCIENTIST ) Arrival Mode Ambulatory Ambulatory Transfer Assistance None Patient Identification Verified (Name & Yes Yes ) Patient Requires Transmission-Based No Precautions Safety Precautions Fall Prevention Vital Signs Temperature (97.8 F-99.1 F) 97.2 F L 97.2 F L Temperature Source Temporal Temporal Pulse Rate (60-100) 55 L 58 L Pulse Location Monitor Monitor Respiratory Rate (12-18) 18 16 Respiratory rate source Observation Observation Oxygen Delivery Method Room Air Blood Pressure (90/60-120/80) 125/61 H 124/63 H Blood Pressure Mean (mm Hg) 82 83 Source Monitor Monitor Position Sitting Semi-Fowlers Blood Pressure Location Right Arm Right Arm History Since Last Visit- (Skip if this is Patient's initial visit) Have you changed medications since your No last visit? Any new allergies or adverse reactions No Had a fall/change in ADL's that may No increase risk of falls Signs or symptoms of abuse and/or No neglect since last visit Have you been in the hospital since your No last visit? Has dressing in place as prescribed Yes Yes Has compression in place as prescribed Yes Has offloadiing in place as prescribed Yes Experienced any changes in pain level or Yes management Left Footwear Regular Shoe Regular Shoe Right Footwear Regular Shoe Regular Shoe Pain Scale: 0-10 Numeric Is Patient Pain Free? Yes Yes - Nurse 1 - General Ulcer Measurement Start: 12/13/24 10:58 Freq: Status: Active Protocol: Activity Type Activity Date Activity User E-sign Co-sign Detail Recorded Client Recorded Date Recorded By Document 12/13/24 10:58 [place] [id number] 12/13/24 11:08 [place] Document 12/20/24 10:52 [id number] 12/20/24 11:01 12/13/24 12/20/24 10:58 10:52 Wound Center Nurse 1 #8 Right Lateral Foot -Current Size (cm) - Length 0.1 0.1 -Current Size (cm) - Width 0.1 0.1 -Current Size (cm) - Depth 0.1 0 -Total Square Cm 0.01 0.01 -Date of Last Picture (Recall this 12/13/24 field) -Photo Taken Yes -Epithelialization Large 67-100% -Tunneling No -Undermining/Tunneling No -Circular Undermining No -Exudate Amt None Present None Present -Wound Margin Thickened Indistinct, Non -Visible -Granulation Amt Medium (34-66%) -Granulation Quality Pale,[place] -Necrosis Amt Medium (34-66%) -Necrotic Tissue Type Adherent Slough -Texture (Rocio-wound Skin Appearance) Assessed Assessed -Moisture (Rocio-wound Skin Appearance) Assessed Assessed -Color (Rocio-wound Skin Appearance) Assessed Assessed -Temperature (Rocio-wound Skin No Abnormality No Abnormality Appearance) (Pt Warm) (Pt Warm) -Tenderness on Palpation (Rocio-wound No No Skin Appearance) -Ulcer Cleansing Soap and Water Rinsed/ Irrigated with Saline -Foul Odor after Cleansing No No -Anesthetic Used 5% Lidocaine 5% Lidocaine Gel Gel Lower Limb Edema Present NA WC - Nurse 2 - General Ulcer CM Notes Start: 12/13/24 10:58 Freq: Status: Active Protocol: Activity Type Activity Date Activity User E-sign Co-sign Detail Recorded Client Recorded Date Recorded By Document 12/13/24 11:22 JF [id number] 12/13/24 11:31 JF Document 12/20/24 11:30 JF [id number] 12/20/24 11:32 JF 12/13/24 12/20/24 11:22 11:30 Wound Center Nurse 2 #8 Right Lateral Foot -Time 11:22 11:30 -Correct Patient Yes Yes -Correct Side, Site, Position Yes Yes -Correct Procedure Yes Yes -Procedure Performed Yes Yes -Type of Procedure Debridement Debridement -Clinical Debridement Subcutaneous Subcutaneous -Tissue Removed Subcutaneous Subcutaneous -Post Debridement (cm) - Length 0.3 0.3 -Post Debridement (cm) - Width 0.5 0.3 -Post Debridement (cm) - Depth 0.2 0.2 -Total Square (Post) (cm) 0.15 0.09 -Area of Debridement (cm) - Length 0.3 0.3 -Area of Debridement (cm) - Width 0.5 0.3 -Total Square (Area) (cm) 0.15 0.09 -Tunneling No No -Undermining/Tunneling No No -Circular Undermining No No -Wound/Ulcer Outcome Not Healed Not Healed -Ulcer Cleansing Rinsed/ Rinsed/ Irrigated with Irrigated with Saline Saline -Foul Odor after Cleansing No No -Bioengineered Tissue No No -Bleeding Controlled with Pressure Pressure -Treatment Response Procedure Procedure Tolerated Well Tolerated Well -Offloading No No -Debridement - Subq, 1st 20sq cm Yes Yes Pain Scale: 0-10 Numeric Is Patient Pain Free? Yes Yes - Nurse 3 - General Ulcer D/C NN Start: 12/13/24 10:58 Freq: Status: Active Protocol: Activity Type Activity Date Activity User E-sign Co-sign Detail Recorded Client Recorded Date Recorded By Document 12/20/24 11:36 KW [id number] 12/20/24 11:37 KW 12/20/24 11:36 Wound Care Center Nurse 3 #8 Right Lateral Foot -Other Dressing betadine painted -Primary Dressing Covered/Secured with Dry Gauze, Secured with Tape Pain Scale: 0-10 Numeric Is Patient Pain Free? Yes WC - Visit Discharge Discharge Condition Stable Ambulatory Status Ambulatory Transportation Private Auto Medication Reconcilliation completed & No provided to patient/care provider Clinical Summary of Care Provided Yes Assessment/Plan Assessment/Plan (1) Non-pressure chronic ulcer of other part of right foot with fat layer exposed: CODE(S): L97.512 - Non-pressure chronic ulcer of other part of right foot with fat layer exposed PLAN: Patient was examined and evaluated. All findings were discussed with the patient. All questions were answered to the patient's satisfaction. Excisional debridement down to and including subcutaneous tissue with a #15 blade and sterile nail nipper to the styloid process of the right foot this was done without incident. Predebridement measurement was callus. Postdebridement measurement is 0.3 x 0.3 x 0.1 cm. The right foot was cleaned and patted dry. Betadine paint followed by sterile bandage was applied. Patient will perform daily dressing changes. Educated the patient continue to wear wide shoe gear. Also educated the patient to buy a stretcher from [employer] to help stretch also educated the patient to buy a stretcher from [employer] to help stretch some narrow shoes that he still may be interested in wearing. At follow-up I educated the patient to bring in his orthotics so we can adjust some of them to have a offloading pad to the right and left styloid process. Review of the patient's microbiology results show evidence of polymicrobial organisms and will have to add Levaquin 500 mg daily for next 2 weeks of the patient's already doxycycline antibiotic. Review of the patient's radiograph show concerns for a rotated styloid process of the right foot and educated the patient on surgical intervention with planing of the bone and reattachment of the tendon. However, he would like to exhaust all conservative treatment at this time as the wound is improving with daily wound care. Follow-up at the wound care center with Dr. Adhikari in 1 week.
[2024-12-27 10:45] VITALS: BP 133/59; PULSE 64; RESP 16; TEMP 35.7
--- NOTE | 2024-12-27 18:33 | PCM.WC.PN ---
History of Present Illness Date of Service: 12/27/24 Chief Complaint: Left hallux ulceration History of Wound: Patient is a 69-year-old male who was referred to the wound care center for concern of a full-thickness wound to the lateral aspect of his right foot. Patient was seen at the wound care center and treated by Dr. Wei and healed. He did follow back up with Dr. French who treated his full-thickness wounds with offloading pads with some relief however there has been new breakdown of the skin to the outside of the left foot at the level of the styloid process fifth metatarsal. Treatment has been with self with triple antibiotic and Band-Aid. He is concerned for infection. Denies trauma. Denies constitutional symptoms. No other pedal complaints at this time. Progress of Wound: Stable full-thickness wound lateral right foot. No sign of infection. Subjective Subjective Patient is a 69-year-old male presenting to wound care center today for follow-up evaluation of full-thickness wound to the lateral aspect of the right foot. Patient presents today with his multiple orthotics. He is taking his antibiotic as prescribed. He admits pain is improved. He admits to little drainage to the bandage. Denies trauma. Denies constitutional symptoms. No other pedal complaints at this time. Objective Data Objective Data Vital Signs: Vital Signs Temp Pulse Resp BP O2 Del Method 96.2 F L 64 16 133/59 H Room Air 12/27/24 10:45 12/27/24 10:45 12/27/24 10:45 12/27/24 10:45 12/27/24 10:45 Oxygen Delivery Method Room Air Lab / Micro Data Micro: Microbiology 12/13/24 11:30 Ulcer, Decubitus - Right Foot Gram Stain - Final 12/13/24 11:30 Ulcer, Decubitus - Right Foot Wound Culture - Final Staphylococcus lugdunensis Stenotrophomonas maltophilia 12/13/24 11:30 Ulcer, Decubitus - Right Foot Anaerobic Culture - Final Anaerobic cocci Physical Exam Narrative Vascular: DP and PT pulse are palpable to the bilateral extremity. CFT is brisk. Skin temperature is warm to warm from proximal ankles to distal digits bilateral. Nonpitting edema appreciated to the right foot. Neurological: Light touch intact. Protective sensation is intact. Patient response to painful stimuli. Dermatological: Full-thickness wound to the lateral aspect of the right foot at the level the styloid process. Full-thickness wound measures 0.2 x 0.2 x 0.1 cm. Wound base is granular. Hyperkeratotic periwound is appreciated. No SOI. Excisional debridement down to and including subcutaneous tissue with a #15 blade and sterile nail nipper to the styloid process of the right foot this was done without incident. Predebridement measurement was callus. Postdebridement measurement is 0.2 x 0.2 x 0.1 cm. Musculoskeletal: No pain on palpation to the full-thickness right foot. No pain with calf pressure. Const alert, oriented x3 and no apparent distress General Appearance: cooperative HEENT normocephalic Eyes General Eye: normal appearance of both eyes Neck General: normal visual inspection Lymph Lymphatic: no lymphadenopathy noted and no lymphedema noted Resp normal respiratory effort Cardio regular rate and regular rhythm Extremity no calf tenderness Extremity Narrative: Left lower extremity: Vascular: DP and PT pulses weakly palpable. CFT less than 5 seconds to digits. Normal temperature gradient. Hair growth is diminished to digits. Neurologic: There is decreased protective sensation to the foot with 5.07g [place] monofilament. Musculoskeletal: Muscle strength 5 of 5 age-appropriate. There is decreased range of motion of the ankle joint dorsiflexion with the knee extended without pain or crepitus. There is prominent styloid process/base of fifth metatarsal noted. Does have tenderness to palpation. There is hyperkeratosis about the site secondary to pressure. Decreased range of motion of the first metatarsophalangeal joint dorsiflexion without pain or crepitus with foot unloaded and further reduction of motion with foot loaded consistent with a functional hallux limitus. Normal range of motion of the interphalangeal joint. Dermatologic: Skin does appear healthy with normal turgor. Does have hyperkeratosis about the base of the fifth metatarsal as stated above. There is also improving hyperkeratosis with subdermal hemorrhaging at the plantar aspect of the interphalangeal joint secondary to his hallux limitus. No signs of infection. Right lower extremity: Vascular: DP and PT pulses weakly palpable. CFT less than 5 seconds to digits. Normal temperature gradient. Hair growth is diminished to digits. Neurologic: There is decreased protective sensation to the foot with 5.07g [place] monofilament. Musculoskeletal: Muscle strength 5 of 5 age-appropriate. There is decreased range of motion of the ankle joint dorsiflexion with the knee extended without pain or crepitus. There is prominent styloid process/base of fifth metatarsal noted. Does have tenderness to palpation. There is hyperkeratosis about the site secondary to pressure. Dermatologic: Skin does appear healthy with normal turgor. Does have hyperkeratosis about the base of the fifth metatarsal as stated above. Skin no rashes or lesions noted and skin turgor normal Neuro moves all extremities Debridement Note Debridement Note Debridement Free Text: Excisional debridement down to and including subcutaneous tissue with a #15 blade and sterile nail nipper to the styloid process of the right foot this was done without incident. Predebridement measurement was callus. Postdebridement measurement is 0.2 x 0.2 x 0.1 cm. 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 (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/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 HAND ) ) Arrival Mode Ambulatory Ambulatory Ambulatory Transfer Assistance None Patient Identification Verified (Name & Yes Yes Yes ) Patient Requires Transmission-Based No Precautions Safety Precautions Fall Prevention Vital Signs Temperature (97.8 F-99.1 F) 97.2 F L 97.2 F L 96.2 F L Temperature Source Temporal Temporal Temporal Pulse Rate (60-100) 55 L 58 L 64 Pulse Location Monitor Monitor Monitor Respiratory Rate (12-18) 18 16 16 Respiratory rate source Observation Observation Observation Oxygen Delivery Method Room Air Room Air Blood Pressure (90/60-120/80) 125/61 H 124/63 H 133/59 H Blood Pressure Mean (mm Hg) 82 83 83 Source Monitor Monitor Monitor Position Sitting Semi-Fowlers Semi-Fowlers Blood Pressure Location Right Arm Right Arm Left Arm History Since Last Visit- (Skip if this is Patient's initial visit) Have you changed medications since your No No last visit? Any new allergies or adverse reactions No No Had a fall/change in ADL's that may No No increase risk of falls Signs or symptoms of abuse and/or No No neglect since last visit Have you been in the hospital since your No No last visit? Has dressing in place as prescribed Yes Yes Yes Has compression in place as prescribed Yes N/A Has offloadiing in place as prescribed Yes N/A Experienced any changes in pain level or Yes No management Left Footwear Regular Shoe Regular Shoe Regular Shoe Right Footwear Regular Shoe Regular Shoe Regular Shoe Pain Scale: 0-10 Numeric Is Patient Pain Free? Yes Yes Yes WC - Nurse 1 - General Ulcer Measurement Start: 12/13/24 10:58 Freq: Status: Active Protocol: Activity Type Activity Date Activity User E-sign Co-sign Detail Recorded Client Recorded Date Recorded By Document 12/13/24 10:58 MT [id number] 12/13/24 11:08 WA Document 12/20/24 10:52 CP [id number] 12/20/24 11:01 CP Document 12/27/24 10:45 KW [id number] 12/27/24 10:50 KW 12/13/24 12/20/24 12/27/24 10:58 10:52 10:45 Wound Center Nurse 1 #8 Right Lateral Foot -Current Size (cm) - Length 0.1 0.1 1.5 -Current Size (cm) - Width 0.1 0.1 1.5 -Current Size (cm) - Depth 0.1 0 0.2 -Total Square Cm 0.01 0.01 2.25 -Date of Last Picture (Recall this 12/13/24 field) -Photo Taken Yes -Epithelialization Large 67-100% -Tunneling No -Undermining/Tunneling No -Circular Undermining No -Exudate Amt None Present None Present Medium -Exudate Type Serosanguineous -Wound Margin Thickened Indistinct, Non Distinct, -Visible Outline Attached -Granulation Amt Medium (34-66%) Small (1-33%) -Granulation Quality Pale,[place] Red -Necrosis Amt Medium (34-66%) Large (67-100%) -Necrotic Tissue Type Adherent Slough Eschar -Texture (Rocio-wound Skin Appearance) Assessed Assessed Assessed,Callus -Moisture (Rocio-wound Skin Appearance) Assessed Assessed Maceration -Color (Rocio-wound Skin Appearance) Assessed Assessed Assessed -Temperature (Rocio-wound Skin No Abnormality No Abnormality No Abnormality Appearance) (Pt Warm) (Pt Warm) (Pt Warm) -Tenderness on Palpation (Rocio-wound No No No Skin Appearance) -Ulcer Cleansing Soap and Water Rinsed/ Rinsed/ Irrigated with Irrigated with Saline Saline -Foul Odor after Cleansing No No No -Anesthetic Used 5% Lidocaine 5% Lidocaine 5% Lidocaine Gel Gel Gel Lower Limb Edema Present NA WC - Nurse 2 - General Ulcer CM Notes Start: 12/13/24 10:58 Freq: Status: Active Protocol: Activity Type Activity Date Activity User E-sign Co-sign Detail Recorded Client Recorded Date Recorded By Document 12/13/24 11:22 [id number] 12/13/24 11:31 Document 12/20/24 11:30 [id number] 12/20/24 11:32 Document 12/27/24 11:07 [id number] 12/27/24 11:11 12/13/24 12/20/24 12/27/24 11:22 11:30 11:07 Wound Center Nurse 2 #8 Right Lateral Foot -Time 11:22 11:30 11:08 -Correct Patient Yes Yes Yes -Correct Side, Site, Position Yes Yes Yes -Correct Procedure Yes Yes Yes -Procedure Performed Yes Yes Yes -Type of Procedure Debridement Debridement Debridement -Clinical Debridement Subcutaneous Subcutaneous Subcutaneous -Tissue Removed Subcutaneous Subcutaneous Subcutaneous -Post Debridement (cm) - Length 0.3 0.3 0.2 -Post Debridement (cm) - Width 0.5 0.3 0.2 -Post Debridement (cm) - Depth 0.2 0.2 0.1 -Total Square (Post) (cm) 0.15 0.09 0.04 -Area of Debridement (cm) - Length 0.3 0.3 0.2 -Area of Debridement (cm) - Width 0.5 0.3 0.2 -Total Square (Area) (cm) 0.15 0.09 0.04 -Tunneling No No No -Undermining/Tunneling No No No -Circular Undermining No No No -Wound/Ulcer Outcome Not Healed Not Healed Not Healed -Ulcer Cleansing Rinsed/ Rinsed/ Rinsed/ Irrigated with Irrigated with Irrigated with Saline Saline Saline -Foul Odor after Cleansing No No No -Bioengineered Tissue No No No -Bleeding Controlled with Pressure Pressure Pressure -Treatment Response Procedure Procedure Procedure Tolerated Well Tolerated Well Tolerated Well -Offloading No No No -Debridement - Subq, 1st 20sq cm Yes Yes Yes Pain Scale: 0-10 Numeric Is Patient Pain Free? Yes Yes Yes - Nurse 3 - General Ulcer D/C NN Start: 12/13/24 10:58 Freq: Status: Active Protocol: Activity Type Activity Date Activity User E-sign Co-sign Detail Recorded Client Recorded Date Recorded By Document 12/20/24 11:36 KW [id number] 12/20/24 11:37 KW Document 12/27/24 11:26 DL [id number] 12/27/24 11:27 DL 12/20/24 12/27/24 11:36 11:26 Wound Care Center Nurse 3 #8 Right Lateral Foot -Ulcer Cleansing Rinsed/ Irrigated with Saline -Foul Odor after Cleansing No -Other Dressing betadine betadine painted -Primary Dressing Covered/Secured with Dry Gauze, Dry Gauze, Secured with Secured with Tape Tape Treatment Response Procedure Tolerated Well Pain Scale: 0-10 Numeric Is Patient Pain Free? 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 All findings were discussed with the patient. All questions were answered to the patient's satisfaction. Excisional debridement down to and including subcutaneous tissue with a #15 blade and sterile nail nipper to the styloid process of the right foot this was done without incident. Predebridement measurement was callus. Postdebridement measurement is 0.2 x 0.2 x 0.1 cm. The right foot was wiped clean and patted dry. Betadine paint was applied to the styloid process followed by sterile Band-Aid. Review of the patient's orthotics showed evidence of 1 orthotic that had a offloading pad to the styloid process of right lower extremity. Recommend the patient to wear these as tolerated. I did show and educate the patient on the shoe stretcher from [employer] which she was understanding of. If the patient is not improving I would recommend possibly a new pair custom inserts that I can make for him with offloading pad to the bilateral lower extremity styloid process on the lateral foot or we can move forward with surgical intervention in due to a shaving of the prominent bone which she was also understanding of. Follow-up at the wound care center with Dr. Adhikari in 1 week.
== END 2024-12-30 23:59 | disposition home or self-care (01) ==
LOC: WC 10:30
PROVIDERS: PCP Preventive Medicine Occupational Medicine; Referring Provider Preventive Medicine Occupational Medicine; Visit Provider Podiatrist Foot & Ankle Surgery
DX: L97.512 Non-pressure chronic ulcer of other part of right foot with fat layer exposed (principal); J44.9 Chronic obstructive pulmonary disease, unspecified; Z79.899 Other long term (current) drug therapy
CPT/HCPCS: 11042; 87070; 87075; 87077; 87186; 87205; 99213; G0463

== ENCOUNTER 2025-01-03 10:54 | Outpatient (RCR) | payer MEDICARE, BC, SELFPAY ==
[2024-12-31 00:10] VITALS: BP 133/59; PULSE 64; RESP 16; TEMP 35.7
[2025-01-03 10:59] VITALS: BP 118/68; PULSE 58; RESP 16; TEMP 36.2
--- NOTE | 2025-01-03 11:56 | PN.PCM_ITS ---
History of Present Illness Date of Service: 01/03/25 Chief Complaint: Left hallux ulceration History of Wound: Patient is a 69-year-old male who was referred to the wound care center for concern of a full-thickness wound to the lateral aspect of his right foot. Patient was seen at the wound care center and treated by Dr. Wei and healed. He did follow back up with Dr. French who treated his full-thickness wounds with offloading pads with some relief however there has been new breakdown of the skin to the outside of the left foot at the level of the styloid process fifth metatarsal. Treatment has been with self with triple antibiotic and Band-Aid. He is concerned for infection. Denies trauma. Denies constitutional symptoms. No other pedal complaints at this time. Progress of Wound: Healed full-thickness wound right foot Subjective Subjective Mr. Herrera is a 69-year-old male presenting to clinic today for evaluation of full-thickness wound to the styloid process of the right foot. Patient has purchased a shoe stretcher on [employer] and using it as discussed. He admits great improvement to pain to the bilateral lower extremity especially the right foot. His wound is healed. He is using a Band-Aid for protection. He denies any trauma and drainage or strikethrough to the area. Denies constitutional symptoms. No other pedal complaints at this time. Objective Data Objective Data Vital Signs: Vital Signs Temp Pulse Resp BP O2 Del Method 97.1 F L 58 L 16 118/68 Room Air 01/03/25 10:59 01/03/25 10:59 01/03/25 10:59 01/03/25 10:59 01/03/25 10:59 Oxygen Delivery Method Room Air Lab / Micro Data Micro: Microbiology 12/13/24 11:30 Ulcer, Decubitus - Right Foot Gram Stain - Final 12/13/24 11:30 Ulcer, Decubitus - Right Foot Wound Culture - Final Staphylococcus lugdunensis Stenotrophomonas maltophilia 12/13/24 11:30 Ulcer, Decubitus - Right Foot Anaerobic Culture - Final Anaerobic cocci Physical Exam Narrative Vascular: DP and PT pulse are palpable to the bilateral extremity. CFT is brisk. Skin temperature is warm to warm from proximal ankles to distal digits bilateral. Nonpitting edema appreciated to the right foot. Neurological: Light touch intact. Protective sensation is intact. Patient response to painful stimuli. Dermatological: Full-thickness wound to the styloid process of the right foot has now healed. There is evidence of callus tissue with no pain on palpation. Musculoskeletal: No pain to palpation to the heel full-thickness wound to the styloid process of the right foot. No pain with calf pressure. Const alert, oriented x3 and no apparent distress General Appearance: cooperative HEENT normocephalic Eyes General Eye: normal appearance of both eyes Neck General: normal visual inspection Lymph Lymphatic: no lymphadenopathy noted and no lymphedema noted Resp normal respiratory effort Cardio regular rate and regular rhythm Extremity no calf tenderness Extremity Narrative: Left lower extremity: Vascular: DP and PT pulses weakly palpable. CFT less than 5 seconds to digits. Normal temperature gradient. Hair growth is diminished to digits. Neurologic: There is decreased protective sensation to the foot with 5.07g [place] [employer] monofilament. Musculoskeletal: Muscle strength 5 of 5 age-appropriate. There is decreased range of motion of the ankle joint dorsiflexion with the knee extended without pain or crepitus. There is prominent styloid process/base of fifth metatarsal noted. Does have tenderness to palpation. There is hyperkeratosis about the site secondary to pressure. Decreased range of motion of the first metatarsophalangeal joint dorsiflexion without pain or crepitus with foot unloaded and further reduction of motion with foot loaded consistent with a functional hallux limitus. Normal range of motion of the interphalangeal joint. Dermatologic: Skin does appear healthy with normal turgor. Does have hype rkeratosis about the base of the fifth metatarsal as stated above. There is also improving hyperkeratosis with subdermal hemorrhaging at the plantar aspect of the interphalangeal joint secondary to his hallux limitus. No signs of infection. Right lower extremity: Vascular: DP and PT pulses weakly palpable. CFT less than 5 seconds to digits. Normal temperature gradient. Hair growth is diminished to digits. Neurologic: There is decreased protective sensation to the foot with 5.07g [place] [employer] monofilament. Musculoskeletal: Muscle strength 5 of 5 age-appropriate. There is decreased range of motion of the ankle joint dorsiflexion with the knee extended without pain or crepitus. There is prominent styloid process/base of fifth metatarsal noted. Does have tenderness to palpation. There is hyperkeratosis about the site secondary to pressure. Dermatologic: Skin does appear healthy with normal turgor. Does have hyperkeratosis about the base of the fifth metatarsal as stated above. Skin no rashes or lesions noted and skin turgor normal Neuro moves all extremities Debridement Note Debridement Note Post-Debridement Measurements and Additional Note: Post-Debridement Measurements/Treatment - Nurse 1 - General Ulcer Assessment Start: 01/03/25 10:59 Freq: Status: Active Protocol: MATTHEW Activity Type Activity Date Activity User E-sign Co-sign Detail Recorded Client Recorded Date Recorded By Document 01/03/25 10:59 KW [id number] 01/03/25 11:04 KW 01/03/25 10:59 WC - Today's Visit Information Type of service Follow-up Visit (Physician/TECHNOLOGY PROJECT MANAGER ) Arrival Mode Ambulatory Patient Identification Verified (Name & Yes ) Vital Signs Temperature (97.8 F-99.1 F) 97.1 F L Temperature Source Temporal Pulse Rate (60-100) 58 L Pulse Location Monitor Respiratory Rate (12-18) 16 Respiratory rate source Observation Oxygen Delivery Method Room Air Blood Pressure (90/60-120/80) 118/68 Blood Pressure Mean (mm Hg) 84 Source Monitor Position Semi-Fowlers Blood Pressure Location Left Arm History Since Last Visit- (Skip if this is Patient's initial visit) Have you changed medications since your No last visit? Any new allergies or adverse reactions No Had a fall/change in ADL's that may No increase risk of falls Signs or symptoms of abuse and/or No neglect since last visit Have you been in the hospital since your No last visit? Has dressing in place as prescribed Yes Has compression in place as prescribed Yes Has offloadiing in place as prescribed N/A Experienced any changes in pain level or No management Left Footwear Regular Shoe Right Footwear Regular Shoe Pain Scale: 0-10 Numeric Is Patient Pain Free? Yes - Nurse 1 - General Ulcer Measurement Start: 01/03/25 10:59 Freq: Status: Active Protocol: Activity Type Activity Date Activity User E-sign Co-sign Detail Recorded Client Recorded Date Recorded By Document 01/03/25 10:59 KW [id number] 01/03/25 11:04 KW 01/03/25 10:59 Wound Center Nurse 1 #8 Right Lateral Foot -Current Size (cm) - Length 0.1 -Current Size (cm) - Width 0.1 -Current Size (cm) - Depth 0 -Total Square Cm 0.01 -Date of Last Picture (Recall this 01/03/25 field) -Exudate Amt None Present -Wound Margin Indistinct, Non -Visible -Texture (Rocio-wound Skin Appearance) Assessed -Moisture (Rocio-wound Skin Appearance) Assessed -Color (Rocio-wound Skin Appearance) Assessed -Temperature (Rocio-wound Skin No Abnormality Appearance) (Pt Warm) -Tenderness on Palpation (Rocio-wound No Skin Appearance) -Ulcer Cleansing Rinsed/ Irrigated with Saline -Foul Odor after Cleansing No -Anesthetic Used 5% Lidocaine Gel - Nurse 2 - General Ulcer CM Notes Start: 01/03/25 10:59 Freq: Status: Active Protocol: Activity Type Activity Date Activity User E-sign Co-sign Detail Recorded Client Recorded Date Recorded By Document 01/03/25 11:18 PATRICIA [id number] 01/03/25 11:19 01/03/25 11:18 Wound Center Nurse 2 -Correct Patient Yes -Correct Side, Site, Position No -Correct Procedure No -Procedure Performed No -Post Debridement (cm) - Length 0 -Post Debridement (cm) - Width 0 -Post Debridement (cm) - Depth 0 -Total Square (Post) (cm) 0 -Area of Debridement (cm) - Length 0 -Area of Debridement (cm) - Width 0 -Total Square (Area) (cm) 0 -Wound/Ulcer Outcome Healed- Epithelialized Pain Scale: 0-10 Numeric Is Patient Pain Free? Yes - Nurse 3 - General Ulcer D/C NN Start: 01/03/25 10:59 Freq: Status: Active Protocol: Activity Type Activity Date Activity User E-sign Co-sign Detail Recorded Client Recorded Date Recorded By Document 01/03/25 11:20 [id number] 01/03/25 11:20 01/03/25 11:20 Is Patient Pain Free? Yes - Visit Discharge Discharge Condition Stable Ambulatory Status Ambulatory Transportation Private Auto Medication Reconcilliation completed & Yes provided to patient/care provider Clinical Summary of Care Provided Yes Assessment/Plan Assessment/Plan (1) Non-pressure chronic ulcer of other part of right foot with fat layer exposed: CODE(S): L97.512 - Non-pressure chronic ulcer of other part of right foot with fat layer exposed PLAN: Patient was examined and evaluated. All findings were discussed with the patient. All questions were answered to the patient's satisfaction. After physical examination the patient's full-thickness wound to the lateral right foot at the level the styloid process is now healed. Educated the patient continue to use the shoe stretcher daily which he was understanding of. He feels that the screw stretcher has really helped allow him to be weightbearing as tolerated and have no pain. He is grateful for not having to go to the operating room for procedure and will continue to follow the instructions once discharged today from the wound care center. I educated the patient if he has any issues she is to follow-up with me in private office for further evaluation and treatment. He was grateful for his care and left the wound care center pleased with his treatment.
--- NOTE | 2025-01-03 14:36 | WC ---
PHOTO 01/03/25 RIGHT LATERAL FOOT
== END 2025-01-29 23:59 | disposition home or self-care (01) ==
LOC: WC 10:54
PROVIDERS: PCP Preventive Medicine Occupational Medicine; Referring Provider Preventive Medicine Occupational Medicine; Visit Provider Podiatrist Foot & Ankle Surgery
DX: Z09 Encounter for follow-up examination after completed treatment for conditions other than malignant neoplasm (principal); Z79.899 Other long term (current) drug therapy
CPT/HCPCS: 99213; G0463

== ENCOUNTER 2025-01-23 12:04 | Emergency (ER) | payer MEDICARE, BC, SELFPAY ==
[2025-01-23 12:05] VITALS: BP 129/73; PULSE 70; RESP 16; TEMP 36.8; O2SAT 98; BMI 26.1
--- NOTE | 2025-01-23 13:14 | RAD_ITS ---
PROCEDURE: CHEST PA AND LATERAL 01/23/2025 REASON FOR EXAM: COUGH TECHNIQUE: CHEST PA AND LATERAL COMPARISON: None FINDINGS: Hardware: None Heart: Heart is not enlarged Mediastinum: Widening of the right paratracheal region suggestive of possible adenopathy. Lungs: Hyperinflation. No acute infiltrate is seen. Bones: Degenerative changes are identified within the thoracic spine. RAD/Chest PA and Lateral IMPRESSION: Widening of the right paratracheal region suggestive of possible adenopathy. C linical correlation recommended. Reading Location: [id number]
--- NOTE | 2025-01-23 13:15 | EX.ED.DYSGE1 ---
HPI History of Present Illness Chief Complaint: Cold Sx Narrative Narrative: Patient is a 69-year-old male with past medical history anxiety, COPD, Raynaud's disease, neuropathy who presents to the emergency department with concern for a sinus infection. Patient states that he became ill about 5 days ago and states that he tried to call his primary care doctor but they did not answer therefore he came to the emergency department to be evaluated today. Patient denies any recent sick contacts. He states that he is coughing up a bunch of sputum but denies any shortness of breath. He states that he feels like he is getting better at this point in time [facility] Medical History Wears glasses Bone spur of foot Loss of hearing Anxiety Marijuana use Arthritis Syncope Heartburn Former smoker COPD (chronic obstructive pulmonary disease) CPAP (continuous positive airway pressure) dependence Leg cramps History of edema History of pain when walking Raynaud disease Neuropathy Home Medications ?Medication ?Instructions ?Recorded ?Last Taken ?Type multivitamin (Daily Multi-Vitamin 1 tab PO DAILY 06/07/23 09/05/23 History tablet) turmeric 100 mg-carlos 150 1 cap PO DAILY 06/07/23 09/05/23 History mg-olive 50 mg-oreg 150 mg-capryl capsule omega-3 fatty acids-fish oil 360 1 cap PO DAILY 08/20/23 09/05/23 History mg-1,200 mg capsule (Fish Oil) polyethylene glycol 3350 17 4 g PO DAILY PRN constipation 08/20/23 Unknown History gram/dose oral powder (Miralax) gabapentin 400 mg capsule 400 mg PO DAILY 05/23/24 Unknown History fluticasone propionate 50 1 spray intranasal BID nasal 06/18/24 Unknown Rx mcg/actuation nasal congestion #16 grams spray,suspension Allergy/AdvReac Type Severity Reaction Status Date / Time grass pollen Allergy runny nose Verified 01/23/25 12:06 Family History Father Diabetes ALYSSA (obstructive sleep apnea) Surgical History Hx of colonoscopy Hx of LASIK Hx of oral surgery Hx of right cataract extraction Hx of left cataract extraction Hx of appendectomy Social History household members: none current occupational status: retired Smoking Status: Never smoker second hand exposure: No alcohol intake: current alcohol intake frequency: a few times a week details: stopped drinking one year ago substance use type: does not use what type of physical activity do you participate in: walking and bicycling anam/mu-ism: Alevism ROS ROS ED ROS Narrative Constitutional: Denies any fevers, chills Cardiovascular: Denies chest pain Respiratory: Complains of cough denies shortness of breath Abdomen: Denies nausea vomit diarrhea Musculoskeletal: Denies back pain Skin: Denies rashes or lesions EXAM Physical Exam Narrative Exam Narrative: General: Patient was lying in bed rest comfortably did not appear to be in acute distress Head: Atraumatic, normocephalic Eyes: PERRL bilaterally, EOMI bilateral, no conjunctival injection noted Neck: Soft, supple, trachea midline Cardiovascular: Regular rhythm Respiratory: Clear to auscultation bilaterally no rales rhonchi or wheezes noted Abdomen: Soft, nondistended, no tenderness to palpation Extremities: +5/5 strength noted in the bilateral upper and lower extremities Neurological: Patient following commands and that he was at [facility] the year is 2024 Skin: Warm, dry, intact no rashes or lesions noted Const Vital Signs: 01/23/25 12:05 01/23/25 12:14 Temperature 98.3 F Temperature Source Oral Pulse Rate 70 Respiratory Rate 16 Respiratory Effort Normal Non-Labored Respiratory Pattern Normal Blood Pressure 129/73 H Blood Pressure Mean 91 Pulse Ox 98 Oxygen Delivery Method Room Air MDM MDM MDM Narrative Medical decision making narrative: Patient is a 69-year-old male who presented to the emergency department with concern for a sinus infection. On the differential diagnose includes but not limited to viral sinusitis, pneumonia, upper respiratory tract infection secondary to viral etiology. Once workup is obtained reviewed he will be reevaluated. Patient chest x-ray reviewed by myself and by radiology showed widening the right paratracheal region suggestive of possible adenopathy gave a hard copy of this for the patient to show his primary care physician for them to follow-up on this. Patient ambulated well in the emergency department and had no evidence hypoxia or tachycardia I discussed with the patient this is likely viral in etiology as he is only on day 3 of symptoms. He was advised to return with worsening symptoms or concerns. He is agreeable this plan all question concerns answered he is discharged home in stable condition. Radiography Diagnostic Testing: Clinical Impression(s) from Imaging Studies Chest X-Ray 01/23/25 13:14 IMPRESSION: Widening of the right paratracheal region suggestive of possible adenopathy. Clinical correlation recommended. Reading Location: [id number] Discharge Plan Triage Chief Complaint: Cold Sx ED Provider: Yony Gonzales Dx/Rx/DC Orders Clinical Impression: Cough Prescriptions: No Action omega-3 fatty acids-fish oil [Fish Oil] 360-1,200 mg capsule 1 cap PO DAILY polyethylene glycol 3350 [Miralax] 17 gram/dose powder 4 g PO DAILY PRN (Reason: constipation) multivitamin [Daily Multi-Vitamin] Tablet 1 tab PO DAILY ottcuaee-xelx-vlvhw-oreg-capry 100 mg-150 mg- 50 mg-150 mg capsule 1 cap PO DAILY fluticasone propionate 50 mcg/actuation spray,suspension 1 spray intranasal BID Qty: 16 0RF Rx Instructions: administer into each nostril gabapentin 400 mg capsule 400 mg PO DAILY Primary Care Provider: Stephen Gomez Referrals: Stephen Gomez DO [Primary Care Provider] - Activity Restrictions/Additional Instructions: Follow-up with your doctor in the outpatient setting. Your chest x-ray did not show any evidence of pneumonia. Showed the chest x-ray results that you provided here in the emergency department to your primary care for doctor to follow-up on the suggested adenopathy that they saw on your chest x-ray. Return with worsening symptoms or concerns Print Language: Slovak Disposition Disposition: Home, Self Care
[2025-01-23 13:45] VITALS: O2SAT 99
== END 2025-01-23 14:38 | disposition home or self-care (01) ==
PROVIDERS: Emergency Provider Emergency Medicine; PCP Preventive Medicine Occupational Medicine; Visit Provider Emergency Medicine
DX: R05.9 Cough, unspecified (principal); J44.9 Chronic obstructive pulmonary disease, unspecified; I73.00 Raynaud's syndrome without gangrene; G62.9 Polyneuropathy, unspecified; Z79.899 Other long term (current) drug therapy; Z87.891 Personal history of nicotine dependence
CPT/HCPCS: 71046; 99282

== ENCOUNTER 2025-03-25 09:18 | Emergency (ER) | payer MEDICARE, BC, SELFPAY ==
[2025-03-25 09:18] VITALS: BP 135/76; PULSE 61; RESP 14; TEMP 36.2; O2SAT 98; BMI 26.2
[2025-03-25 09:38] VITALS: BP 121/68; PULSE 53; RESP 14; O2SAT 100
--- NOTE | 2025-03-25 09:38 | EKG12_ITS ---
Test Reason : Blood Pressure : */* mmHG Vent. Rate : 52 BPM Atrial Rate : 52 BPM P-R Int : 206 ms QRS Dur : 76 ms QT Int : 436 ms P-R-T Axes : 63 22 30 degrees QTcB Int : 405 ms Sinus bradycardia Otherwise normal ECG Confirmed by KELLI HILL, LURDES ([id number]), editor managing newspaper CHRISTEL MUÑOZ ([id number]) on 03/26/2025 1:06:20 PM Referred By: Confirmed By: LURDES PEREIRA MD
--- NOTE | 2025-03-25 09:38 | CT_ITS ---
PROCEDURE: STROKE BRAIN/HEAD WITHOUT CONT 03/25/2025 REASON FOR EXAM: TRANSIENT DYSARTHRIA; HEADACHE TECHNIQUE: STROKE BRAIN/HEAD WITHOUT CONT Coronal and Sagittal reconstruction series were provided. One or more dose reduction techniques were used (e.g., Automated exposure control, adjustment of the mA and/or kV according to patient size, use of iterative reconstruction technique. RADIATION DOSE SUMMARY: CTDlvol: 18.47 mGy DLP: 1637.37 mGycm COMPARISON: CT head 12/05/2024. FINDINGS: Brain: Extensive low density in the deep cerebral white matter most likely represents advanced chronic small vessel ischemic disease. No acute territorial infarction. No acute intracranial hemorrhage. No mass effect or midline shift. No ventriculomegaly. Atherosclerotic calcifications of the carotid siphons. CSF Spaces: Moderate generalized cerebral atrophy Sinuses/Mastoids: Clear at visualized levels Bones: No acute bony abnormalities. CT/STROKE Brain/Head without Cont IMPRESSION: No acute intracranial abnormalities. Reading Location: [id number]
--- NOTE | 2025-03-25 09:39 | CT_ITS ---
PROCEDURE: STROKE CTA HEAD AND NECK W/CON 03/25/2025 REASON FOR EXAM: TRANSIENT DYSARTHRIA; HEADACHE TECHNIQUE: STROKE CTA HEAD AND NECK W/CON Multiplanar Sagittal and Coronal images were obtained. CONTRAST: Isovue 370 VOLUME: 96 mL One or more dose reduction techniques were used (e.g., Automated exposure control, adjustment of the mA and/or kV according to patient size, use of iterative reconstruction technique). RADIATION DOSE SUMMARY: CTDlvol: 18.47 mGy DLP: 1637.37 mGycm COMPARISON: None. FINDINGS: Aortic Arch: Normal size and branching pattern. No significant atherosclerotic plaque. Brachiocephalic and Subclavians: Unremarkable RIGHT Carotid: Right CCA: Unremarkable. Right ICA: Unremarkable. Right ECA: Unremarkable. LEFT Carotid: Left CCA: Unremarkable. Left ICA: Unremarkable. Left ECA: Unremarkable. Vertebrals: Codominant. Arise from the subclavians. Both vertebrals form the basilar. RIGHT Vertebral: Unremarkable. LEFT Vertebral: Unremarkable. Anatomy: [place] anatomy is normal. Aneurysm or avm: No intracranial aneurysms or large vascular malformations are identified. Anterior cerebral arteries: Unremarkable: Middle cerebral arteries: Unremarkable. Basilar artery: Unremarkable. Posterior cerebral arteries: Unremarkable. Other major branches of the posterior circulation: Unremarkable. Major venous structures: Unremarkable. Other findings: Neck: No lymphadenopathy. Lungs: Lung apices are clear. Bones: Severe multilevel degenerate changes of the cervical spine without acute bony abnormalities. CT/STROKE CTA Head AND Neck W/Con IMPRESSION: No hemodynamically significant stenosis in the head and neck. Reading Location: [facility]
--- OUTSIDE RECORDS SUMMARY | 2025-03-25 09:46 | XMS RPT_ITS | CCD ---
Author Organization [facility] Care Team Providers Care Trailer Body Assembler Name Role Phone REGINO DIAZ DO Primary Care Physician [phone] Dr. Regino Diaz Primary Care Provider Dr. Regino Diaz Referring Provider [phone] Lenka CAN MACHINE OPERATOR, FABI Hernandez Attending Provider REGINO DIAZ DO Attending Unavailable REGINO DIAZ DO Primary Care Unavailable HOMER COMMERCIAL REPRESENTATIVE-MORTGAGE LOAN CLOSER, YADY Attending REGINO Mccloud DO Primary Care Unavailable POLA AQUINO DO Attending Unavailable REGINO DIAZ DO Primary Care Unavailable REGINO DIAZ DO Attending Unavailable REGINO DIAZ DO Primary Care Unavailable REGINO DIAZ DO Primary Care Unavailable DR LYNDON TRACY MD Attending Unavailab MARQUITA Jenkins MD Attending Unavail able JOE CACERES, REGINO Primary Care Unavailable Kyle Silverio MD Unavailable [phone] KALYAN ECHAVARRIA Attending Unavailable Dr. Regino Diaz DO Primary Care Provider [phone] Dr. Vic Lopez MD Attending Provider Dr. Vic Lopez MD Referring Provider Dr. Kj Wei DPM Attending Provider Dr. Regino Diaz DO Referring Provider Ata Torres MD Attending Provider Ata Torres MD Emergency Provider Dr. Yony Gonzales DO Attending Provider [phone] Dr. Yony Gonzales DO Emergency Provider Dr. Doug Diaz DPM Attending Provider Emily DPM, Dr. Camacho Referring Provider Christy CACERES, Dr. Conner Attending Provider [phone] Christy CACERES, Dr. Conner Emergency Provider Matt HILL, Dr. Castorena Attending Provider Lenka CAN MACHINE OPERATOR-C, Mary Attending Provider Ne HILL, Dr. Galvez Emergency Provider Joe CACERES, Dr. Mitchell Primary Care Provider [phone] Joe CACERES, Dr. Mitchell Referring Provider Ne HILL, Dr. Galvez Attending Provider Manolo DPM, Dr. Marin Attending Provider Joe CACERES, Dr. Mitchell Primary Care Provider [phone] Marco HILL, Dr. Marrero Emergency Provider Joe CACERES, Dr. Mitchell Primary Care Provider [phone] Wuhong DPM, Dr. Camacho Attending Provider Emily DPM, Dr. Camacho Referring Provider Dr. Janes Lara MD Attending Provider [phone] Adhikari DPM, Dr. Gutierrez Attending Provider Onofre DPM, Dr. Gutierrez Referring Provider Onofre DPM, Dr. Gutierrez Attending Provider John HILL, Dr. Ho Attending Provider Joe CACERES, Dr. Mitchell Primary Care Provider [phone] Emily DPM, Dr. Camacho Attending Provider Emily DPM, Dr. Camacho Referring Provider Janet CACERES, Dr. Bhakta Emergency Provider [phone] Joe CACERES, Dr. Mitchell Primary Care Provider [phone] Dr. Yony Gonzales DO Attending Provider Matt Adhikari Attending Unavailable Joe, Regino Primary Care Unavailable Joe, Regino Referring Unavailable Joe, Regino Primary Care Unavailable Oscar Salazar Referring Unavailable Oscar Salazar Attending Unavailable Joe, Regino Primary Care Unavailable Ata Torres Attending Unavailable Joe, Regino Primary Care Unavailable Yony Gonzales Attending Unavailable Joe, Rgeino Primary Care Unavailable Janes Lara Unavailable Matt Adhikari Attending Unavailable Joe, Regino Referring Unavailable Joe, Regino Primary Care Unavailable Joe, Regino Primary Care Unavailable Yony Gonzales Attending Unavailable Doug Lopez Attending Unavailable Joe, Regino Primary Care Unavailable Doug Diaz Attending Unavailable Doug Diaz Referring Unavailable Joe, Regino Primary Care Unavailable Doug Diaz Attending Unavailable Joe, Regino Primary Care Unavailable Doug Diaz Referring Unavailable Kj Wei Attending Unavailable Joe, Regino Primary Care Unavailable Joe, Regino Referring Unavailable Kj Wei Attending Unavailable Joe, Regino Primary Care Unavailable Joe, Regino Referring Unavailable Matt Adhikari Referring Unavailable Matt Adhikari Attending Unavailable Joe, Regino Primary Care Unavailable Joe, Regino Primary Care Unavailable Vic Lopez Referring Unavailable Vic Lopez Attending Unavailable Doug Diaz Referring Unavailable Oje, Regino Primary Care Unavailable Doug Diaz Attending Unavailable Tomas French Attending Unavailable Joe, Regino Referring Unavailable Joe, Regino Primary Care Unavailable Raffaele Gutierrez Attending Unavailable Joe, Regino Primary Care Unavailable Doug Diaz Referring Unavailable Joe, Regino Primary Care Unavailable Joe, Regino Referring Unavailable Vic Lopez Attending Unavailable Tomas French Attending Unavailable Joe, Regino Referring Unavailable Joe, Regino Primary Care Unavailable AdhikariMatt Attending Unavailable Joe, Regino Referring Unavailable Joe, Regino Primary Care Unavailable Vic Lopez Attending Unavailable Joe, Regino Referring Unavailable Joe, Regino Primary Care Unavailable Joe, Regino Referring Unavailable Mary Og NP Attending Unavailable Joe, Regino Primary Care Unavailable Ubaldo Harrison Attending Unavailable Joe, Regino Primary Care Unavailable Joe, Regino Primary Care Unavailable Lenny Olivia Attending Unavailable Joe, Regino Primary Care Unavailable Raffaele Garcia Attending Unavailable Allergies Allergy Classification Reported Allergen(s) Allergy Type Date of Onset Reaction(s) Facility (8 sources) Allergic rhinitis due to pollen Allergy to substance [facility] (1 source) Grass pollen Drug allergy (disorder) 01-23-2025 [facility] [place] Repository Medications Current Medications Medication Drug Class(es) Dates Sig (Normalized) Sig (Original) amitriptyline hydrochloride 10 mg oral tablet (11 sources) Tricyclic Antidepressant Start: 11-19-2023 amitriptyline 10 mg oral tablet Dose : 10 mg = 1 tab(s), Oral, TID, # 270 tab(s), 0 Refill(s) Start Date: 11/19/23 Status: Ordered Start: 08-20-2023 End: 06-01-2024 take 3 tablets by mouth at bedtime Amitriptyline 10 mg tablet Discontinued 30 mg PO AT BEDTIME August 20, 2023 1:00am June 01, 2024 8:07am Start: 01-19-2023 take 1-5 tablets by mouth once daily at bedtime amitriptyline 10 mg oral tablet 1 to 5 tab(s), Oral, qHS, # 60 tab(s), 1 Refill(s), Pharmacy: [id number], Neuropathy, leg, 182, cm, 01/19/23 10:38:00 EDT, Height Start Date: 01/19/23 Status: Ordered aspirin 81 mg delayed release oral tablet (18 sources) Platelet Aggregation Inhibitor, Nonsteroidal Anti-inflammatory Drug Start: 02-09-2024 aspirin 81 mg ora l delayed release tablet Dose : 162 mg = 2 tab(s), Oral, qDay, # 30 tab(s), 0 Refill(s) Start Date: 02/09/24 Status: Ordered Start: 12-15-2022 take 972 mg by mouth once daily Aspirin Active 972 MG PO DAILY December 15, 2022 9:16am Start: 12-15-2022 End: 12-15-2022 Aspirin 81 mg capsule Discon tinued 900 mg PO DAILY December 15, 2022 12:00am December 15, 2022 9:17am Start: 12-15-2022 End: 12-15-2022 take 900 mg by mouth once daily Aspirin Discontinued 900 MG PO DAILY December 15, 2022 12:00am December 15, 2022 9:17am Start: 02-06-2022 aspirin 81 mg oral delayed release tablet Dose : 162 mg = 2 tab(s), Oral, TID, 0 Refill(s) Start Date: 02/06/22 Status: Ordered docosahexaenoic acid 144 mg / eicosapentaenoic acid 216 mg / vitamin e 2 unt oral capsule (9 sources) Start: 08-20-2023 [place]-3 Fatty Acids-Fish Oil (Fish Oil) 360-1,200 mg capsule Active 1 NMA PO DAILY August 20, 2023 1:00am fluticasone furoate 0.0275 mg/actuat metered dose nasal spray (20 sources) Corticosteroid Start: 06-24-2024 take 55 ug nasal route once daily as needed Fluticasone Furoate 27.5 mcg/actuation nasal spray 55 mcg Dose = 2 spray(s), Nostril, each, qDay, PRN as needed for allergy symptoms, # 10 gram(s), 0 Refill(s) 06/24/2024 Active Start: 06-24-2024 take 55 ug nasal rou te once daily as needed fluticasone 27.5 mcg/inh nasal spray 55 mcg Dose = 2 spray(s), Nostril, each, qDay, PRN as needed for allergy symptoms, # 10 gram(s), 0 Refill(s) Start Date: 06/24/24 Status: Ordered Start: 06-07-2023 End: 10-02-2024 Fluticasone Propionate 50 mcg/actuation spray,suspension Active 1 NMA INTRANASAL TWICE A DAY 16 June 18, 2024 1:00am nasal congestion administer into each nostril Start: 04-27-2023 take 1 dose nasal ro kletsel dehe [place] twice daily as needed fluticasone proprionate NASAL 50 mcg/ spray Dose = 1 spray(s), Nostril, each, BID, PRN Allergy symptoms, # 3 EA, 3 Refill(s), Pharmacy: [id number], 181, cm, 04/27/23 9:06:00 EDT, Height, kg, 04/27/23 9:06:00 EDT, Dosing Weight Start Date: 04/27/23 Status: Ordered Start: 01-19-2023 take 1 dose nasal ro kletsel dehe [place] twice daily fluticasone proprionate NASAL 50 mcg/ spray Dose = 1 spray(s), Nostril, each, BID, 0 Refill(s) Start Date: 01/19/23 Status: Ordered Start: 12-15-2022 End: 06-07-2023 Fluticasone Propionate 50 mcg/actuation spray,suspension Discontinued 2 NMA INTRANASAL DAILY 15 10December 15, 2022 12:00am June 07, 2023 11:40am Obstructive sleep apnea syndrome Obstructive sleep apnea (adult) (pediatric) Start: 12-15-2022 Fluticasone Pr opionate Active 2 SPRAY INTRANASAL DAILY December 15, 2022 12:00am gabapentin 600 mg oral tablet (13 sources) Anti-epileptic Agent Start: 05-25-2024 End: 08-23-2024 take 1 tablet by mouth every twelve hours gabapentin (NEURONTIN) 600 mg tablet Take 1 tablet by mouth every 12 hours. 08/04/2024 Active Start: 05-23-2024 take 1 capsule by [facility] once daily Gabapentin 400 mg capsule Active 400 mg PO DAILY May 23, 2024 12:00am Start: 05-16-2024 Gabapentin 3%/ Diclofenac 1.5%/Lidocaine2.5%Prilocaine 2.5% Crm Gabapentin 3%/Diclofenac 1.5%/Lidocaine2.5%Prilocaine 2.5% Crm, Apply 1 gram to affected area 3 to 4 times daily for treatment of pain Start Date: 05/16/24 Status: Ordered Start: 04-18-2024 gabapentin 600 mg oral tablet Dose : 600 mg = 1 tab(s), Oral, BID, # 90 tab(s), 0 Refill(s), 92.1 Start Date: 04/18/24 Status: Ordered ibuprofen 200 mg oral tablet (2 sources) Nonsteroidal Anti-inflammatory Drug Start: 10-07-2022 Advil 200 mg oral tablet Dose : 200 mg = 1 tab(s), Oral, Daily, PRN as needed for pain, # 120 tab(s), 0 Refill(s) Start Date: 10/07/22 Status: Ordered metroNIDAZOLE 0.01 mg/mg topical gel (1 source) Nitroimidazole Antimicrobial Start: 02-09-2024 End: 08-07-2024 metroNIDAZOLE 1% topical gel Apply 1 joe, Topical, qDay, # 60 gram(s), 5 Refill(s), Pharmacy: [id number], 180, cm, 02/09/24 14:05:00 EDT, Height, 94.2, kg, 02/09/24 14:05:00 EDT, Dosing Weight Start Date: 02/09/24 Stop Date: 08/07/24 Status: Ordered Multivitamin (Daily Multi-Vitamin) tablet (9 sources) Start: 06-07-2023 Multivitamin (Daily Multi-Vitamin) tablet Active 1 {tbl} PO DAILY June 07, 2023 1:00am Multivitamin preparation (5 sources) Start: 07-13-2022 take 1 tablet by mouth once daily Multivitamin Dose = 1 tab(s), Oral, Daily, 0 Refill(s) Start Date: 07/13/22 Status: Ordered PEG-3350 with Electrolytes (Eqv-GoLYTELY) oral powder for reconstitution (1 source) Start: 08-25-2023 PEG-3350 with Electrolytes (Eqv-GoLYTELY) oral powder for reconstitution See Instructions, Take as directed 1 day before colonoscopy. Follow instructions as provided by your GI provider at [facility] # 1 EA, 0 Refill(s), Pharmacy: [id number], 181, cm, 08/25/23 13:39:00 EST, Height, kg, 08/25/23 13:39:00 EST, Dosing Weight Start Date: 08/25/23 Status: Ordered polyethylene glycol 3350 63199 mg powder for oral solution (9 sources) Osmotic Laxative Start: 08-20-2023 Polyethylene Glycol 3350 (Miralax) 17 gram/dose powder Active 4 g PO DAILY as needed for constipation August 20, 2023 1:00am Haewxxtg-Pmtn-Wvnlz -Oreg-Capry 100 mg-150 mg- 50 mg-150 mg capsule (9 sources) Start: 06-07-2023 take 1 capsule by mouth once daily Kjjkkauh-Lzga-Aekn v-Pzsb-Hunme 100 mg-150 mg- 50 mg-150 mg capsule Active 1 NMA PO DAILY June 07, 2023 1:00am Completed/Discontinued Medications Medication Drug Class(es) Dates Sig (Normalized) Sig (Original) acetaminophen 325 mg / HYDROcodone bitartrate 5 mg oral tablet (9 sources) Opioid Agonist Start: 04-09-2024 End: 06-01-2024 Hydrocodone-Acetam inophen 5-325 mg tablet Discontinued 1 {tbl} PO EVERY 6 HOURS NEEDED as needed for Pain 10 3 0 April 09, 2024 June 01, 2024 8:08am Neuropathy Polyneuropathy, unspecified amoxicillin 875 mg / clavulanate 125 mg oral tablet (12 sources) Penicillin-class Antibacterial Start: 10-02-2024 End: 10-08-2024 Amoxicillin-Pot Clavulanate 875-125 mg tablet Discontinued 1 {tbl} PO TWICE A DAY 20 0 October 02, 2024 1:00am October 08, 2024 7:06pm Start: 02-06-2022 End: 02-16-2022 take 1 tablet by mouth every twelve hours amoxicillin-clavulanate 875 mg-125 mg or al tablet 1 tab(s), Oral, q12h, # 20 tab(s), 0 Refill(s), 114.1 Start Date: 02/06/22 Stop Date: 02/16/22 Status: Ordered azithromycin 500 mg oral tablet (9 sources) Macrolide Antimicrobial Start: 06-18-2024 End: 10-02-2024 take 1 tablet by mouth once daily Azithromycin 500 mg tablet Discontinued 500 mg PO DAILY 3 3 0 June 18, 2024 1:00am October 02, 2024 11:48am cephalexin 500 mg oral capsule (9 sources) Cephalosporin Antibacterial Start: 01-19-2024 End: 06-01-2024 take 1 capsule by mouth every six hours Cephalexin 500 mg capsule Discontinued 500 mg PO EVERY 6 HOURS 40 0 January 19, 2024 12:00am June 01, 2024 8:08am cetirizine hydrochloride 10 mg oral tablet (20 sources) Histamine-1 Receptor Antagonist Start: 10-07-2022 End: 06-01-2024 take 1 tablet by mouth once daily as needed Cetirizine 10 mg tablet Discontinued 10 mg PO DAILY as needed for allergy symptoms September 23, 2023 1:00am June 01, 2024 8:08am doxycycline hyclate 100 mg oral capsule (5 sources) Tetracycline-class Drug Start: 12-13-2024 End: 12-28-2024 take 1 capsule by mouth twice daily Doxycycline Hyclate 100 mg capsule Discontinued 100 mg PO TWICE A DAY 28 December 13, 2024 12:00am December 28, 2024 8:15am hydrOXYzine pamoate 25 mg oral capsule (9 sources) Antihistamine Start: 06-02-2024 End: 10-02-2024 take 1 capsule by mouth three times daily as needed Hydroxyzine Pamoate (Vistaril) 25 mg capsule Discontinued 25 mg PO THREE TIMES A DAY as needed for itching 20 June 02, 2024 12:00am October 02, 2024 11:35am levoFLOXacin 500 mg oral tablet (4 sources) Quinolone Antimicrobial Start: 12-20-2024 End: 12-28-2024 take 1 tablet by mouth once daily Levofloxacin 500 mg tablet Discontinued 500 mg PO DAILY 14 December 20, 2024 12:00am December 28, 2024 8:15am Magnesium (9 sources) Start: 06-07-2023 End: 08-20-2023 take 1 tablet by mouth once daily Magnesium 100 mg tablet Discontinued 100 mg PO DAILY June 07, 2023 1:00am August 20, 2023 5:07pm phenylephrine hydrochloride 25 mg/ml ophthalmic solution (2 sources) alpha-1 Adrenergic Agonist Start: 08-30-2024 End: 08-31-2024 PHENYLephrine 2.5 % 1 Drop (AK-DILATE, JAIME-SYNEPHRINE) Start: 08-30-2024 End: 08-31-2024 1 Drop, BOTH EYES, DIRECT ED, Starting on Wed08/30/24 at 1500, Until Wed08/31/24 at 0259, Administer for dilation PROTECT FROM LIGHT, OPHT CLINIC MED ORDERS predniSONE 20 mg oral tablet (9 sources) Start: 08-11-2024 End: 10-02-2024 take 2 tablets by mouth once daily Prednisone 20 mg tablet Discontinued 40 mg PO DAILY 8 4 0 August 11, 2024 1:00am October 02, 2024 11:48am pregabalin 100 mg oral capsule (19 sources) Start: 09-23-2023 End: 10-02-2024 take 1 capsule by mouth twice daily Pregabalin 100 mg capsule Discontinued 100 mg PO TWICE A DAY September 23, 2023 1:00am October 02, 2024 11:35am Start: 06-07-2023 End: 09-23-2023 take 2 capsules by mouth twice daily Pregabalin 25 mg capsule Discontinued 50 mg PO TWICE A DAY June 07, 2023 1:00am September 23, 2023 11:51am Start: 12-15-2022 take 100 mg by mouth once milad y Pregabalin Active 100 MG PO DAILY December 15, 2022 12:00am tropicamide 10 mg/ml ophthalmic solution (2 sources) Anticholinergic Start: 08-30-2024 End: 08-31-2024 tropicamide 1 % 1 Drop (MYDRIACYL) Start: 08-30-2024 End: 08-31-2024 1 Drop, BOTH EYES, DIRECT ED, Starting on Wed08/30/24 at 1500, Until Wed08/31/24 at 0259, Administer for dilation, OPHT CLINIC MED ORDERS Problems Active Problems Problem Classification Problem Date Documented Date Episodic/Chronic Acquired foot deformities (20 sources) Metatarsophalangeal joint stiff; Translations: [Other deformities of toe(s) (acquired), left foot] Onset: 5 10-19-2024 Episodic Allergic reactions (5 sources) Environmental allergy 10-07-2022 Episodic Anxiety disorders (9 sources) Anxiety; Translations: [Anxiety disorder, unspecified] 06-10-2024 Chronic Blindness and vision defects (2 sources) Night blindness; Translations: [Unspecified night blindness] Onset: 5 08-25-2024 Episodic Chronic ulcer of skin (20 sources) Chronic ulcer of foot; Translations: [Non-pressure chronic ulcer of other part of right foot with fat layer exposed] Onset: 5 Chronic Diabetes mellitus with complications (20 sources) Autonomic neuropathy due to type 2 diabetes mellitus; Translations: [Type 2 diabetes mellitus with diabetic autonomic (poly)neuropathy] Onset: 5 10-07-2021 Chronic Headache; including migraine (9 sources) Tension-type headache; Translations: [Tension-type headache, unspecified, not intractable] 06-10-2024 Chronic Headache; including migraine (20 sources) Headache; Translations: [Vertex headache] Onset: 4 10-07-2021 Episodic Headache; including migraine (1 source) Headache; including migraine; Translations: [Headache, unspecified] Onset: 5 Nonspecific chest pain (4 sources) Chest pain 11-19-2023 Episodic Open wounds of extremities (9 sources) Puncture wound of index finger of right hand; Translations: [Puncture wound without foreign body of right index finger without damage to nail, initial encounter] 01-27-2024 Episodic Osteoarthritis (14 sources) Arthritis; Translations: [Osteoarthritis of right knee joint] Onset: 5 08-25-2018 Chronic Comment on above: bilateral knees Other and unspecified benign neoplasm (4 sources) Tubular adenoma of colon 08-17-2023 Episodi c Other circulatory disease (13 sources) Peripheral vascular disease; Translations: [Other specified peripheral vascular diseases] 06-25-2021 Chronic Other circulatory disease (8 sources) Other specified peripheral vascular diseases; Translations: [Other specified peripheral vascular diseases] Chronic Other connective tissue disease (4 sources) Bone spur of left foot 11-09-2023 Episodic Other diseases of veins and lymphatics (20 sources) Peripheral venous insufficiency; Translations: [Venous insufficiency (chronic) (peripheral)] 06-25-2021 Episodic Other diseases of veins and lymphatics (10 sources) Venous insufficiency (chronic) (peripheral); Translations: [Venous (peripheral) insufficiency, unspecified] Onset: Episodic Other ear and sense organ disorders (9 sources) Pain of ear structure; Translations: [Otalgia, unspecified ear] 06-26-2024 Episodic Other gastrointestinal disorders (3 sources) Diarrhea 08-22-2021 Episodic Other hereditary and degenerative nervous system conditions (2 sources) Idiopathic peripheral autonomic neuropathy 04-18-2024 Chronic Other inflammatory condition of skin (3 sources) Rosacea 02-09-2024 Chronic Other injuries and conditions due to external causes (13 sources) Abrasion; Translations: [Other injury of unspecified body region, initial encounter] 08-05-2018 Episodic Other lower respiratory disease (2 sources) Cough; Translations: [Cough] 01-23-2025 Episodic Other nervous system disorders (20 sources) Neuropathy; Translations: [Other hereditary and idiopathic neuropathies] 03-12-2022 Chronic Other nervous system disorders (5 sources) Neuropathy of lower limb; Translations: [Unspecified mononeuropathy of bilateral lower limbs] 08-22-2021 Chronic Other nervous system disorders (8 sources) Other hereditary and idiopathic neuropathies; Translations: [Other specified idiopathic peripheral neuropathy] Chronic Other nervous system disorders (6 sources) Polyneuropathy 05-07-2022 Chronic Other nervous system disorders (12 sources) Bilateral peripheral neuropathy of lower limbs; Translations: [Unspecified mononeuropathy of bilateral lower limbs] 07-22-2018 Chronic Comment on above: Patient's neuropathy may be related to Raynaud's/small vessel vasculitis. EMG is positive for neuropathy and perhaps active neuronal loss. 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 He seems to believe that this is causing him significant issues. Initial testing he seemed to have some difficulties with recall. Part of this may be anxiety related. There is a positive family history for Alzheimer's disease in his father.Patient did have a Mini-Mental status exam performed which was 30/30 on today's visit. Nevertheless he has had some events which may suggest that he does have a recent memory deficit that may need to be addressed.Evaluation at this time will consist an MRI of the brain. Will have him return to neurology clinic in 6 months for retesting with Mini-Mental status and clinical exam on this particular topic. Patient has describe d recent memory defect. He seems to believe that this is causing him significant issues. Initial testing he seemed to have some difficulties with recall. Part of this may be anxiety related. There is a positive family history for Alzheimer's disease in his father.Patient did have a Mini-Mental status exam performed which was 30/30 on today's visit. Nevertheless he has had some events which may suggest that he does have a recent memory deficit that may need to be addressed.Evaluation at this time will consist an MRI of the brain. Will have him return to neurology clinic in 6 months for retesting with Mini-Mental status and clinical exam on this particular topic.12/28/2024.Patient shows little change in terms of cognition. His affect is relatively flat. Imaging of brain is relatively unremarkable. Patient does have some complaints of change in memory and cognition however his Mini-Mental status exam is 28/30.At this point we are considering obtaining P tau and A2 42/40 for further assessment. Other screening for suspected conditions (not mental disorders or infectious disease) (9 sources) Patient encounter status; Translations: [Encounter for screening for malignant neoplasm of colon] 08-20-2023 Episodic Other skin disorders (13 sources) Foot callus; Translations: [Corns and callosities] 10-07-2021 Episodic Other skin disorders (4 sources) Callosity on toe 11-09-2023 Episodic Other upper respiratory disease (9 sources) Allergic rhinitis; Translations: [Allergic rhinitis, unspecified] 09-23-2023 Chronic Other upper respiratory infections (19 sources) Chronic sinusitis; Translations: [Chronic sinusitis, unspecified] Onset: Chronic Other upper respiratory infections (10 sources) Posterior rhinorrhea; Translations: [Postnasal drip] Onset: 5 10-08-2024 Episodic Residual codes; unclassified (20 sources) Obstructive sleep apnea syndrome; Translations: [Obstructive sleep apnea (adult) (pediatric)] 05-07-2022 Chronic Residual codes; unclassified (1 source) Obstructive sleep apnea (adult) (pediatric); Translations: [Obstructive sleep apnea (adult)(pediatric)] 12-15-2022 Chronic Residual codes; unclassified (13 sources) Localized edema; Translations: [Localized edema] 06-25-2021 Episodic Residual codes; unclassified (8 sources) Localized edema; Translations: [Edema] Episodic Retinal detachments; defects; vascular occlusion; and retinopathy (2 sources) Retinal disorder; Translations: [Other specified retinal disorders] Onset: 5 08-25-2024 Chronic Unclassified (8 sources) Medication refused 07-23-2021 Unclassified (20 sources) Patient encounter status 07-23-2021 Past or Other Problems Problem Classification Problem Date Documented Da te Episodic/Chronic Other connective tissue disease (1 source) Pain in right foot; Translations: [Pain in right foot] Onset: 10-10-2024 Episodic Other connective tissue disease (1 source) Pain in right lower leg; Translations: [Pain in right lower leg] Onset: 09-26-2024 Episodic Other connective tissue disease (1 source) Pain in left foot; Translations: [Pain in left foot] Onset: 04-30-2024 Episodic Other nervous system disorders (1 source) Other symptoms and signs involving cognitive functions and awareness; Translations: [Other symptoms and signs involving cognitive functions and awareness] Onset: 07-03-2024 Episodic Other upper respiratory disease (1 source) Other specified disorders of nose and nasal sinuses; Translations: [Other specified disorders of nose and nasal sinuses] Onset: 10-18-2024 Episodic Residual codes; unclassified (1 source) Illness, unspecified; Translations: [Illness, unspecified] Onset: 06-22-2024 Episodic Spondylosis; intervertebral disc disorders; other back problems (19 sources) Neck pain; Translations: [Cervicalgia] Onset: 08-31-2024 08-19-2024 Episodic Results Test Name Value Interpretation Reference Range Facility Chest PA and Lateralon 01-23 Chest PA and Lateral [facility] Imaging Services [address] [place] [address] Chest PA and Lateral MR#: [id number] Acct: [id number] Name: REGINO BONILLA Rep #: [id number] : 1955 M 69 From: Garfield baltazar MD PCP: Dr. Regino Diaz DO Status: REG ER Study: Chest PA and Lateral Date of Exam: 01/23/25 Exam# [id number] Ordering Dr: Yony Gonzales DO PROCEDURE: CHEST PA AND LATERAL 01/23/2025 REASON FOR EXAM: COUGH TECHNIQUE: CHEST PA AND LATERAL COMPARISON: None FINDINGS: Hardware: None Heart: Heart is not enlarged Mediastinum: Widening of the right paratracheal region suggestive of possible adenopathy. Lungs: Hyperinflation. No acute infiltrate is seen. Bones: Degenerative changes are identified within the thoracic spine. RAD/Chest PA and Lateral IMPRESSION: Widening of the right paratracheal region suggestive of possible adenopathy. Clinical correlation recommended. Reading Location: [id number] CC: Dr. Regino Diaz DO; Dr. Yony Gonzales DO Iap Displays Analyst: Signed Normal [facility] Emergency Department Summary on 01-23-2025 Emergency Department Summary [facility] Medical Records Department [address] [place] [address] Emergency Department Summary 01/23/25 MR#: [id number] Acct: [id number] Name: REGINO BONILLA Rep #: [id number] : 1955 69 From: Yony Gonzales DO PCP: Dr. Regino Diaz DO Status:REG ER Location: ED HPI History of Present Illness Chief Complaint: Cold Sx Narrative Narrative: Patient is a 69-year-old male with past medical history anxiety, COPD, Raynaud's disease, neuropathy who presents to the emergency department with concern for a sinus infection. Patient states that he became ill about 5 days ago and states that he tried to call his primary care doctor but they did not answer therefore he came to the emergency department to be evaluated today. Patient denies any recent sick contacts. He states that he is coughing up a bunch of sputum but denies any shortness of breath. He states that he feels like he is getting better at this point in time [facility] Medical History Wears glasses Bone spur of foot Loss of hearing Anxiety Marijuana use Arthritis Syncope Heartburn Former smoker COPD (chronic obstructive pulmonary disease) CPAP (continuous positive airway pressure) dependence Leg cramps History of edema History of pain when walking Raynaud disease Neuropathy Home Medications ???Medication ???Instructions ???Recorded ???Last Taken ???Type multivitamin (Daily Multi-Vitamin 1 tab PO DAILY 06/07/23 09/05/23 History tablet) turmeric 100 mg-carlos 150 1 cap PO DAILY 06/07/23 09/05/23 H istory mg-olive 50 mg-oreg 150 mg-capryl capsule omega-3 fatty acids-fish oil 360 1 cap PO DAILY 08/20/23 09/05/23 H istory mg-1,200 mg capsule (Fish Oil) polyethylene glycol 3350 17 4 g PO DAILY PRN constipation 08/02 04/25 Unknown History gram/dose oral powder (Miralax) gabapentin 400 mg capsule 400 mg PO DAILY 05/23/24 Unknown H istory fluticasone propionate 50 1 spray intranasal BID nasal 06/18 Unknown Rx mcg/actuation nasal congestion #16 grams spray,suspension Allergy/AdvReac Type Severity Reaction Status Date / Time grass pollen Allergy runny nose Verified 01/23/25 12:06 Family History Father Diabetes ALYSSA (obstructive sleep apnea) Surgical History Hx of colonoscopy Hx of LASIK Hx of oral surgery Hx of right cataract extraction Hx of left cataract extraction Hx of appendectomy Social History household members: none current occupational status: retired Smoking Status: Never smoker second hand exposure: No alcohol intake: current alcohol intake frequency: a few times a week details: stopped drinking one year ago substance use type: does not use what type of physical activity do you participate in: walking and bicycling anam/voodoo: Holiness ROS ROS ED ROS Narrative Constitutional: Denies any fevers, chills Cardiovascular: Denies chest pain Respiratory: Complains of cough denies shortness of breath Abdomen: Denies nausea vomit diarrhea Musculoskeletal: Denies back pain Skin: Denies rashes or lesions EXAM Physical Exam Narrative Exam Narrative: General: Patient was lying in bed rest comfortably did not appear to be in acute distress Head: Atraumatic, normocephalic Eyes: PERRL bilaterally, EOMI bilateral, no conjunctival injection noted Neck: Soft, supple, trachea midline Cardiovascular: Regular rhythm Respiratory: Clear to auscultation bilaterally no rales rhonchi or wheezes noted Abdomen: Soft, nondistended, no tenderness to palpation Extremities: +5/5 strength noted in the bilateral upper and lower extremities Neurological: Patient following commands and that he was at [facility] the year is 2024 Skin: Warm, dry, intact no rashes or lesions noted Const Vital Signs: 01/23/25 12:05 01/23/25 12:14 Temperature 98.3 F Temperature Source Oral Pulse Rate 70 Respiratory Rate 16 Respiratory Effort Normal Non-Labored Respiratory Pattern Normal Blood Pressure 129/73 H Blood Pressure Mean 91 Pulse Ox 98 Oxygen Delivery Method Room Air MDM MDM MDM Narrative Medical decision making narrative: Patient is a 69-year-old male who presented to the emergency department with concern for a sinus infection. On the differential diagnose includes but not limited to viral sinusitis, pneumonia, upper respiratory tract infection secondary to viral etiology. Once workup is obtained reviewed he will be reevaluated. Patient chest x-ray reviewed by myself and by radiology showed widening the right paratracheal region suggestive of possible adenopa (more content not included)... Normal [facility] Neurology Visit Reporton Neurology Visit Report [facility] [address], [address] [place] [address] OFFICE VISIT Date of Service: 12/28/24 MR#: [id number] Acct: [id number] Name: REGINO BONILLA Rep #: [id number] : 1955 Provider: Dr. Vic begum MD Age/Sex: 69/M Location: [facility] [place] Status: Signed HPI HPI Chief Complaint: Details: The patient is a 69-year-old Right handed male who presents for a 7 month follow up on diabetic polyneuropathy and cognitive impairment. This patient was last seen in June 2024. At that time he appeared to have a mild memory defect. His bigger problem that he complains of is peripheral neuropathy involving lower extremities. He states that his feet are numb. He has some nonhealing ulcers on his feet. He indicates that he is slow to heal. He denies having diabetes. Hemoglobin A1c is 5.4. Thyroid functions and B12's are normal. Patient did have MRI of the brain which demonstrated mild atrophy. He was otherwise unremarkable. No other changes clinically reported by the patient. Patient does have a history of Raynaud's phenomenon ROS: Patient reports no change in head vision hearing. Respiratory no new complaints shortness of breath or hemoptysis Cardiac no chest pain palpitations Abdomen no change in abdomen vomiting blood or passed blood in stool no complaint of hematuria. Extremities he has a bone spur lateral aspect of the right fifth metatarsal and it is being shaved down. He is again demonstrating slow healing. He also has a slow healing left great toe ulcer. He has a small lesion on his mid left sinha which is also slow healing but perhaps 4 mm in size. Exam Const Other: Blood pressure is 113/69 pulse 72 respiration 16 temperature 98.0 O2 sat 98%. General appearance is that of a well-developed well-nourished male no acute distress Neurologic examination: Mental status. He is awake alert oriented x 3. Mini-Mental status was performed and he scored 28/30. Patient states that he still has a tendency to forget minor details or task that he is performing. He does express some concern on this. CN II-XII: Pupils equal round. About 4 mm in size. Fundi not visualized. Extraocular muscles intact. Facial expression is limited. Hearing swallowing phonation tongue intact. Motor exam appears to have normal bulk tone and strength. Feet do demonstrate lesions as described in HPI. Cerebellar function shows no tremors cogwheeling or rigidity. No ataxia. Reflexes were difficult to elicit at biceps absent at knees absent in ankles. Toes signs neutral. Sensory exam shows the patient does describe a decrease to tactile and vibratory sense from ankles distally. He thinks that is somewhat worse on the left side compared to the right. Inspection of the skin of the feet shows aside from the lesions and the skin appears otherwise in good condition and nails appear to also be in good condition although he may have some fungal infection of the left great toe toenail. Pulses are difficult to detect on palpation including posterior tibialis and dorsalis pedis. May be related to patient's prior history of Raynaud's. Station gait is normal. Assessment and Plan Assessment and Plan (1) Cognitive impairment: Status: Acute Comment: Patient has described recent memory defect. He seems to believe that this is causing him significant issues. Initial testing he seemed to have some difficulties with recall. Part of this may be anxiety related. There is a positive family history for Alzheimer's disease in his father. Patient did have a Mini-Mental status exam performed which was 30/30 on today's visit. Nevertheless he has had some events which may suggest that he does have a recent memory deficit that may need to be addressed. Evaluation at this time will consist an MRI of the brain. Will have him return to neurology clinic in 6 months for retesting with Mini-Mental status and clinical exam on this particular topic. 12/28/2024. Patient shows little change in terms of cognition. His affect is relatively flat. Imaging of brain is relatively unremarkable. Patient does have some complaints of change in memory and cognition however his Mini-Mental status exam is 28/30. At this point we are considering obtaining P tau and A2 42/40 for further assessment. Plan: 1. Arrange for Alzheimer biomarker testing. Testing is planned for next week. 2. Patient return to neurology clinic 2 to 3 months. (2) Neuropathy of both feet: Status: Chronic Comment: Patient's neuropathy may be related to Raynaud's/small vessel vasculitis. EMG is positive for neuropathy and perhaps active neuronal loss. Plan: 1. I will screen for vasculitis or inflammatory changes which may be active given his prior history of Raynaud's phenomenon, poor healing and perhaps small vessel disease. Orders: Orders CRP Today G62.9 - Polyneuro (more content not included)... Normal [facility] Culture, Anaerobic Any Sourc brandy 12-18-2024 CUAN RIGHT FOOT ULCER Studies have confirmed that Anaerobic Gram Positive Cocci are routinely SUSCEPTABLE to Penicillin and generally susceptible to Beta-lactams and Beta-lactamase inhibitors, Cephalosporins, Carbapenems and Metronidazole. They are showing increased RESISTANCE to Clindamycin Anaerobic cocci Normal [facility] Comment on above: Performed By: #### M 100.4001, M100.2999, #### [facility] Laboratory [address] [place], [place], [id number] Wound Cultureon 12-16-2024 WC RIGHT FOOT ULCER Wound Culture Wound Culture Wound Culture Staphylococcus lugdunensis Amount Growth 2+ Stenotrophomonas maltophilia Stenotrophomonas maltophilia Staphylococcus lugdunensis: REACTION cefOXitin Susc Islt NEG Doxycycline Islt GISELA <=0.5 Clindamycin Islt GISELA <=0.12 S Clindamycin.induced Susc Islt NEG Erythromycin Islt GISELA <=0.25 S Gentamicin Islt GISELA <=0.5 S Linezolid Islt GISELA 1 S Oxacillin Susc Islt 2 S Tetracycline Islt GISELA <=1 S TMP SMX Islt GISELA <=10 S Vancomycin Islt GISELA <=0.5 S Stenotrophomonas maltophilia: REACTION levoFLOXacin Islt GISELA 0.25 S TMP SMX Islt GISELA <=20 Normal [facility] Comment on above: Performed By: #### M 100.4001, M100.3000, #### [facility] Laboratory [address] [place], [address] Gram Stainon 12-14-2024 GS RIGHT FOOT ULCER Gram Stain 2+ Gram positive cocci No White Blood Cells No Epithelial cells Normal [facility] Comment on above: Performed By: #### M 100.4001, M100.3000, M100.2000 #### [facility] Laboratory [address] [place], [address] Anaerobic cultureOrdered By: Matt Adhikari on 12-13-2024 Bacteria identified Anaer cx Nom (Unsp spec) Anaerobic cocci Abnormal [facility] Foot min 3 Viewson Foot min 3 Views [facility] Imaging Services [address] [place] [address] Foot min 3 Views MR#: [id number] Acct: [id number] Name: REGINO BONILLA Rep #: [id number] : 1955 M 69 From: Regino Vaz MD PCP: Dr. Regino Diaz DO Status: REG CLI Study: Foot min 3 Views Date of Exam: 12/13/24 Exam# [id number] Ordering Dr: Matt Adhikari DPM PROCEDURE: FOOT MIN 3 VIEWS 12/13/2024 REASON FOR EXAM: ULCER, BONE SPURS TECHNIQUE: 3 views of the left foot. Weightbearing FINDINGS: No fracture or dislocation. The joint spaces appear within limits. Moderate plantar and small Achilles surface calcaneal enthesophyte, spur formation. Vascular calcifications noted. Ankle osteoarthrosis. Appearance of a soft tissue bunion over the base of the 5th metatarsal. No periosteal reaction or osseous destructive change. RAD/Foot min 3 Views IMPRESSION: Moderate plantar and small Achilles surface calcaneal enthesophyte, spur formation. Appearance of a soft tissue bunion over the base of the 5th metatarsal. No periosteal reaction or osseous destructive change. Reading Location: [facility] CC: ANAND Adhikari; Dr. Regino Diaz DO [employer] Dis[employer] Analyst: Signed Normal [facility] Foot min 3 Views [facility] Imaging Services [address] [place] [address] Foot min 3 Views MR#: [id number] Acct: [id number] Name: REGINO BONILLA Rep #: [id number] : 1955 M 69 From: Regino Vaz MD PCP: Dr. Regino Diaz DO Status: REG CLI Study: Foot min 3 Views Date of Exam: 12/13/24 Exam# [id number] Ordering Dr: Matt Adhikari DPM PROCEDURE: FOOT MIN 3 VIEWS 12/13/2024 REASON FOR EXAM: ULCER, BONE SPURS TECHNIQUE: 3 views of the right foot. Weightbearing COMPARISON: 07/09/2021 FINDINGS: No fracture or dislocation. Suggestion of soft tissue bunion base of the 5th metatarsal. Joint spaces appear within limits. Small to moderate plantar and small Achilles surface calcaneal enthesophyte, spur formation. Cuneiform metatarsal dorsal joint osteoarthrosis, spur formation seen on the lateral view. Vascular calcifications. Ankle osteoarthrosis. No periosteal reaction or osseous destructive change identified. RAD/Foot min 3 Views IMPRESSION: Suggestion of soft tissue bunion base of the 5th metatarsal. Small to moderate plantar and small Achilles surface calcaneal enthesophyte, spur formation. Reading Location: [facility] CC: DPM Dr. Matt Adhikari; Dr. Regino Diaz DO Iap Displays Analyst: Signed Normal [facility] Gram stainOrdered By: Kamlesh Adhikari on 12-13-2024 Microscopic observation Gram stain Nom (Unsp spec) [facility] Routine wound cultureOrdered By: Matt Adhikari on 12-13-2024 Microbial culture, routine Staphylococcus lugdunensis Abnormal [facility] Microbial culture, routine Stenotrophomonas maltophilia Abnormal [facility] Wound Ctr History AND Physic shyam 12-13-2024 Wound Ctr History & Physical [facility] [address] [place] [address] H P Exam - Wound Care 12/13/24 1151 MR#: [id number] Acct: [id number] Name: REGINO BONILLA Rep #: [id number] : 1955 69 From: Matt Adhikari DPM PCP: Dr. Regino Diaz, DO Status:REG RCR Location: History of Present Illness Date of Service: 12/13/24 Chief Complaint: Left hallux ulceration History of Wound: Patient is a 69-year-old male who was referred to the wound care center for concern of a full-thickness wound to the lateral aspect of his right foot. Patient was seen at the wound care center and treated by Dr. Wei and healed. He did follow back up with Dr. French who treated his full-thickness wounds with offloading pads with some relief however there has been new breakdown of the skin to the outside of the left foot at the level of the styloid process fifth metatarsal. Treatment has been with self with triple antibiotic and Band-Aid. He is concerned for infection. Denies trauma. Denies constitutional symptoms. No other pedal complaints at this time. Progress of Wound: Stable full-thickness wound lateral right foot. No sign of infection. [facility] Medical History Wears glasses Bone spur of foot Loss of hearing Anxiety Marijuana use Arthritis Syncope Heartburn Former smoker COPD (chronic obstructive pulmonary disease) CPAP (continuous positive airway pressure) dependence Leg cramps History of edema History of pain when walking Raynaud disease Neuropathy Home Medications ???Medication ???Instructions ???Recorded ???Last Taken ???Type multivitamin (Daily Multi-Vitamin 1 tab PO DAILY 06/07/23 09/05/23 History tablet) turmeric 100 mg-carlos 150 1 cap PO DAILY 06/07/23 09/05/23 H istory mg-olive 50 mg-oreg 150 mg-capryl capsule omega-3 fatty acids-fish oil 360 1 cap PO DAILY 08/20/23 09/05/23 H istory mg-1,200 mg capsule (Fish Oil) polyethylene glycol 3350 17 4 g PO DAILY PRN constipation 08/02 04/25 Unknown History gram/dose oral powder (Miralax) gabapentin 400 mg capsule 400 mg PO DAILY 05/23/24 Unknown H istory fluticasone propionate 50 1 spray intranasal BID nasal 06/18 Unknown Rx mcg/actuation nasal congestion #16 grams spray,suspension doxycycline hyclate 100 mg capsule 100 mg PO BID 2 weeks #28 caps 0 12/13/24 Unknown Rx Allergy/AdvReac Type Severity Reaction Status Date / Time grass pollen Allergy runny nose Verified 12/05/24 18:39 Family History Father Diabetes ALYSSA (obstructive sleep apnea) Surgical History Hx of colonoscopy Hx of LASIK Hx of oral surgery Hx of right cataract extraction Hx of left cataract extraction Hx of appendectomy Social History household members: none current occupational status: retired Smoking Status: Never smoker second hand exposure: No alcohol intake: current alcohol intake frequency: a few times a week details: stopped drinking one year ago substance use type: does not use what type of physical activity do you participate in: walking and bicycling anam/voodoo: Holiness Vital Signs Vital Signs Vital Signs: 12/13/24 10:58 Temperature 97.2 F L Temperature Source Temporal Pulse Rate 55 L Respiratory Rate 18 Blood Pressure 125/61 H Blood Pressure Mean 82 Blood Pressure Source Monitor Blood Pressure Position Sitting Blood Pressure Location Right Arm Oxygen Delivery Method Room Air Physical Exam Narrative Vascular: DP and PT pulse are palpable to the bilateral extremity. CFT is brisk. Skin temperature is warm to warm from proximal ankles to distal digits bilateral. Nonpitting edema appreciated to the right foot. Neurological: Light touch intact. Protective sensation is intact. Patient response to painful stimuli. Dermatological: Evidence of full-thickness wound to the lateral aspect of the right foot at the level the styloid process. Full-thickness wound measures 0.3 x 0.5 x 0.2 cm. Wound base is granular. Hyperkeratotic periwound is appreciated. Mild malodor is noted. Negative probe to bone. Evidence of hyperkeratotic tissue to the lateral left foot at the level of the styloid process fifth metatarsal. No sign of infection. Evidence of hyperkeratotic tissue to the plantar aspect of the distal phalanx of the left hallux. Excisional debridement down to and including subcutaneous tissue with a #15 blade and sterile nail nipper to the styloid process of the right foot this was done without incident. Predebridement measurement was callus. Postdebridement measurement is 0.3 x 0.5 x 0.2 cm. Musculosk (more content not included)... Normal [facility] Absolute lymphocyte countOrd ered By: Janes Lara on 12-05-2024 Lymphocytes Auto (Unsp spec) [#/Vol] 1.69 10*3/uL 0.83-4.51 [facility] Absolute neutrophil countOrd ered By: Janes Lara on 12-05-2024 Neutrophils (Bld) [#/Vol] 3.3 10*3/uL 2.0-7.7 [facility] Anion gap in Serum or Plasma Ordered By: Janes Lara on 12-05-2024 Anion gap [Moles/Vol] 10 mmol/L 5-15 [facility] Automated lymphocyte count a s percentage of total leukocytesOrdered By: Janes Lara on 12-05-2024 Lymphocytes/100 WBC Auto (Unsp spec) 31.1 % 19-41 [facility] BUN/creatinine ratioOrdered By: Janes Lara on 12-05-2024 Urea nitrogen/Creatinine [Mass ratio] 27.7 mg/mg High 10-20 [facility] Basic Metabolic Profile (BMP )on 12-05-2024 BUN/CRE 27.7 RATIO High 10- [facility] Comment on above: Performed By: #### L 100.0100, L500.2500 ####[facility] [address] [place], [address] Calcium [Mass/Vol] 9.4 mg/dL Normal 7.6-11.0 [facility] Comment on above: Performed By: #### L 100.0100, L500.2500 ####[facility] [address] [place], [address] Chloride [Moles/Vol] 105 mmol/L Normal 98-108 [facility] Comment on above: Performed By: #### L 100.0100, L500.2500 ####[facility] [address] [place], [address] CO2 [Moles/Vol] 25.2 mmol/L Normal 21.0-32.0 [facility] Comment on above: Performed By: #### L 100.0100, L500.2500 ####[facility] [address] [place], [address] Creatinine [Mass/Vol] 0.90 mg/dL Normal 0.70-1.20 [facility] Comment on above: Performed By: #### L 100.0100, L500.2500 ####[facility] [address] [place], [address] ECRCL 85.02 ml/min Normal 50-250 [facility] Comment on above: Performed By: #### L 100.0100, L500.2500 ####[facility] [address] [place], [address] GAP 10 Normal 5-15 [facility] Comment on above: Performed By: #### L 100.0100, L500.2500 ####[facility] [address] [place], [address] GFR/1.73 sq M.predicted among non-blacks MDRD (S/P/Bld) [Vol rate/Area] 93 mL/min/{1.73_m2} Normal >60 [facility] Comment on above: Result Comment: mL/m in/1.73m2 CKD-EPI Creatinine Equation (2020) Performed By: #### L 100.0100, L500.2500 ####[facility] [address] [place], [address] Glucose [Mass/Vol] 94 mg/dL Normal 70-99 [facility] Comment on above: Performed By: #### L 100.0100, L500.2500 ####[facility] [address] [place], [address] Potassium [Moles/Vol] 4.1 mmol/L Normal 3.3-5.1 [facility] Comment on above: Performed By: #### L 100.0100, L500.2500 ####[facility] [address] [place], [address] Sodium [Moles/Vol] 139 mmol/L Normal 133-145 [facility] Comment on above: Performed By: #### L 100.0100, L500.2500 ####[facility] [address] [place], [address] Urea nitrogen [Mass/Vol] 25 mg/dL High 4-19 [facility] Comment on above: Performed By: #### L 100.0100, L500.2500 ####[facility] [address] [place], [address] Basophil percentageOrdered B y: Janes Lara on 12-05-2024 Basophils/100 WBC (Bld) 0.4 % 0-1 [facility] Brain/Head without Contrasto n 12-05-2024 Brain/Head without Contrast [facility] Imaging Services [address] [facility] [place] [address] Brain/Head without Contrast MR#: [id number] Acct: [id number] Name: REGINO BONILLA Rep #: [id number] : 1955 M 69 From: Raffaele Graves MD PCP: Dr. Regino Diaz, Status: [facility] Study: Brain/Head without Contrast Date of Exam: 01/24 Exam# [id number] Ordering Dr: Janes Lara MD PROCEDURE: BRAIN/HEAD WITHOUT CONTRAST 12/05/2024 REASON FOR EXAM: HEADACHE TECHNIQUE: Contiguous axial scans of 3.75 mm slice thicknesses with sagittal and coronal reconstruction images. One or more dose reduction techniques were utilized (e.g., automated exposure control, adjustment of mA and/or kv according to patient size, use of iterative reconstruction technique). RADIATION DOSE SUMMARY: DLP: 897.35 mGycm COMPARISON: No relevant prior FINDINGS: Cerebrum: No intraparenchymal hemorrhage. No abnormal areas of encephalomalacia. No mass effect or midline shift. Ariza-white matter differentiation is normal. Ventricles and cisterns: Appropriate size for patient's age. Extra-axial fluid: Unremarkable. Posterior fossa: Unremarkable cerebellum. No abnormalities involving the brainstem. Paranasal sinuses: Normal. Vasculature: Unremarkable. Mastoid air cells: unremarkable. Calvarium: Unremarkable. Soft tissues: Unremarkable.. Artifact from dental enhancements. CT/Brain/Head without Contrast IMPRESSION: No acute intracranial abnormalities are demonstrated. Reading Location: [facility] CC: Dr. Janes Lara MD; Dr. Regino Diaz DO [employer] Analyst: Signed Normal [facility] CBC W/Diff, Automatedon 05-0 Absolute Lymph 1.69 X10 3/uL Normal 0.83-4.51 [facility] Comment on above: Performed By: #### L 100.0100, L500.2500 ####[facility] [address] [place], [address] Absolute Neut 3.3 X10 3/uL Normal 2.0-7.7 [facility] Comment on above: Performed By: #### L 100.0100, L500.2500 ####[facility] [address] [place], [address] Basophils/100 WBC (Bld) 0.4 % Normal 0-1 [facility] Comment on above: Performed By: #### L 100.0100, L500.2500 ####[facility] [address] [place], [address] Eosinophils/100 WBC (Bld) 1.5 % Normal 0-5 [facility] Comment on above: Performed By: #### L 100.0100, L500.2500 ####[facility] [address] [place], [address] Erythrocyte distribution width (RBC) [Ratio] 13.1 % Normal 11.6-14.6 [facility] Comment on above: Performed By: #### L 100.0100, L500.2500 ####[facility] [address] [place], [address] Hematocrit (Bld) [Volume fraction] 40.1 % Normal 40-54 [facility] Comment on above: Performed By: #### L 100.0100, L500.2500 ####[facility] [address] [place], [address] Hemoglobin (Bld) [Mass/Vol] 13.6 g/dL Normal 13.0-16.5 [facility] Comment on above: Performed By: #### L 100.0100, L500.2500 ####[facility] [address] [place], [address] IG% 0.200 Normal 0.0-0.9 [facility] Comment on above: Result Comment: IG% - Immature Granulocytes (promyelocytes, myelocytes and metamyelocytes) > 1% indicates that a LEFT SHIFT is Present. Performed By: #### L 100.0100, L500.2500 ####[facility] [address] [place], [address] Lymphocytes/100 WBC (Bld) 31.1 % Normal 19-41 [facility] Comment on above: Performed By: #### L 100.0100, L500.2500 ####[facility] [address] [place], [address] MCH (RBC) [Entitic mass] 32.4 pg High 27.0-32.0 [facility] Comment on above: Performed By: #### L 100.0100, L500.2500 ####[facility] [address] [place], [address] MCHC (RBC) [Mass/Vol] 33.9 g/dL Normal 32-36 [facility] Comment on above: Performed By: #### L 100.0100, L500.2500 ####[facility] [address] [place], [address] MCV (RBC) [Entitic vol] 95.5 fL High 80-94 [facility] Comment on above: Performed By: #### L 100.0100, L500.2500 ####[facility] [address] [place], [address] Monocytes/100 WBC (Bld) 5.9 % Normal 0-10 [facility] Comment on above: Performed By: #### L 100.0100, L500.2500 ####[facility] [address] [place], [address] Neutrophils/100 WBC (Bld) 60.9 % Normal 47-70 [facility] Comment on above: Performed By: #### L 100.0100, L500.2500 ####[facility] [address] [place], [address] Nucleated RBC (Bld) [#/Vol] 0 10*3/uL Normal 0-5 [facility] Comment on above: Performed By: #### L 100.0100, L500.2500 ####[facility] [address] [place], [address] Platelet mean volume (Bld) [Entitic vol] 10.3 fL Normal 6.2-12.0 [facility] Comment on above: Performed By: #### L 100.0100, L500.2500 ####[facility] [address] [place], [address] Platelets (Bld) [#/Vol] 240 10*3/uL Normal 150-450 [facility] Comment on above: Performed By: #### L 100.0100, L500.2500 ####[facility] [address] [place], [address] RBC (Bld) [#/Vol] 4.20 10*6/uL Low 4.6-6.2 [facility] Comment on above: Performed By: #### L 100.0100, L500.2500 ####[facility] [address] [place], [address] RDW SD 46.2 fl High 35.1-43.9 [facility] Comment on above: Performed By: #### L 100.0100, L500.2500 ####[facility] [address] [place], [address] WBC (Bld) [#/Vol] 5.4 10*3/uL Normal 4.4-11.0 [facility] Comment on above: Performed By: #### L 100.0100, L500.2500 ####[facility] [address] [place], [address] Carbon dioxide, total [Moles /volume] in Central venous bloodOrdered By: Janes Lara on 12-05-2024 CO2 [Moles/Vol] 25.2 mmol/L 21.0-32.0 [facility] Chloride assayOrdered By: Tomer Lara on 12-05-2024 Chloride [Moles/Vol] 105 mmol/L 98-108 [facility] Emergency Department Summary on 12-05-2024 Emergency Department Summary [facility] Medical Records Department [address] [place] [address] Emergency Department Summary 12/05/24 MR#: [id number] Acct: [id number] Name: REGINO BONILLA Rep #: [id number] : 1955 69 From: Janes Lara MD PCP: Dr. Regino Diaz, DO Status:REG ER Location: ED HPI History of Present Illness Chief Complaint: Headache Informant: patient Onset/Context/Timing Onset: Days Context: Gradual Timing: Continuous Quality -Headache: Positive for Dull, Throbbing and Tightness Current Severity: Mild Maximum Severity: Mild Associated Symptoms/Injury Associated Symptoms: Negative for Fever, Nausea, Vomiting, Sore Throat, Sinus Pressure, Numbness, Tingling, Preceding Aura, Visual Changes, Blurred Vision, Photophobia or Visual Loss Injury - SARABIA: Negative for Direct Trauma, Fall or Assault Narrative Narrative: 69-year-old male states on Wednesday had a headache. Initially he may have had some slurred speech for several minutes that is since resolved. Denies any fall injury or trauma. He is on no blood thinners. He denies a history of chronic headaches. He had an MRI in June which was negative. He denies any fever or sinus congestion. No neck pain. No prior brain or neck surgery. Prior similar symptoms: Yes Recent Illness/Hospitalization: No [facility] Medical History Wears glasses Bone spur of foot Loss of hearing Anxiety Marijuana use Arthritis Syncope Heartburn Former smoker COPD (chronic obstructive pulmonary disease) CPAP (continuous positive airway pressure) dependence Leg cramps History of edema History of pain when walking Raynaud disease Neuropathy Home Medications ???Medication ???Instructions ???Recorded ???Last Taken ???Type multivitamin (Daily Multi-Vitamin 1 tab PO DAILY 06/07/23 09/05/23 History tablet) turmeric 100 mg-carlos 150 1 cap PO DAILY 06/07/23 09/05/23 H istory mg-olive 50 mg-oreg 150 mg-capryl capsule omega-3 fatty acids-fish oil 360 1 cap PO DAILY 08/20/23 09/05/23 H istory mg-1,200 mg capsule (Fish Oil) polyethylene glycol 3350 17 4 g PO DAILY PRN constipation 08/02 04/25 Unknown History gram/dose oral powder (Miralax) gabapentin 400 mg capsule 400 mg PO DAILY 05/23/24 Unknown H istory fluticasone propionate 50 1 spray intranasal BID nasal 06/18 Unknown Rx mcg/actuation nasal congestion #16 grams spray,suspension Allergy/AdvReac Type Severity Reaction Status Date / Time grass pollen Allergy runny nose Verified 12/05/24 18:39 Family History Father Diabetes ALYSSA (obstructive sleep apnea) Surgical History Hx of colonoscopy Hx of LASIK Hx of oral surgery Hx of right cataract extraction Hx of left cataract extraction Hx of appendectomy Social History household members: none current occupational status: retired Smoking Status: Never smoker second hand exposure: No alcohol intake: current alcohol intake frequency: a few times a week details: stopped drinking one year ago substance use type: does not use what type of physical activity do you participate in: walking and bicycling anam/voodoo: Holiness ROS ROS ED ROS Narrative Headache. Denies other symptoms currently. Constitutional Constitutional ED: Denies chills or fever(s) Eyes Eyes: Denies blurry vision ENT ENT ED: Denies ear pain Cardiovascular Cardiovascular: Denies chest pain Respiratory/Chest Respiratory/Chest: Denies cough or dyspnea Gastrointestinal Gastrointestinal: Denies abdominal pain, diarrhea, nausea or vomiting Genitourinary Genitourinary ED: Denies dysuria or hematuria Musculoskeletal Musculoskeletal: Denies arthralgias or back pain Integumentary Denies abscess Neurologic Neurologic: Reports headache(s); Denies paresthesias or weakness Psychiatric Psychiatric: Denies anxiety Endocrine Endocrinology: Denies polydipsia, polyphagia or polyuria Hematologic/Lymphatic Hematologic/Lymphatic: Denies easy bleeding, easy bruising or lymphadenopathy Allergic/Immunologic Allergic/Immunologic ED: Denies mouth swelling, tongue swelling or urticaria EXAM Physical Exam Narrative Exam Narrative: 69-year-old male sitting upright in bed. Vital signs are stable afebrile. Blood pressure 132/69. He does not appear to be septic toxic is no distress. There is no family with him. H EENT exam pupils round reactive light. Extra motions are intact. No signs of trauma. Nontender. No frontal maxillary sinus tenderness. Moist mucous membranes. Tongue midline. Normal speech. No facial droop. Neck nontender. No lymphadenopathy. No meningismus. Lungs clear to auscult (more content not included)... Normal [facility] Eosinophil percentageOrdered By: Janes Lara on 12-05-2024 Eosinophils/100 WBC (Bld) 1.5 % 0-5 [facility] Erythrocyte distribution wid th (RBC) [Ratio]Ordered By: Janes Lara on 12-05-2024 Erythrocyte distribution width (RBC) [Entitic vol] 46.2 fL High 35.1-43.9 [facility] Erythrocyte distribution wid th ratioOrdered By: Janes Lara on 12-05-2024 Erythrocyte distribution width (RBC) [Ratio] 13.1 % 11.6-14.6 [facility] Erythrocyte distribution wid th standard deviationOrdered By: Janes Lara on 12-05-2024 Erythrocyte distribution width (RBC) [Ratio] 46.2 fl High 35.1-43.9 [facility] Estimation of creatinine susana aranceOrdered By: Janes Lara on 12-05-2024 Estimated Creatinine Clearance Calc 85.02 ml/min 50-250 [facility] GFR/1.73 sq M.predicted julissa g non-blacks MDRD (S/P/Bld) [Vol rate/Area]Ordered By: Janes Lara on 12-05-2024 Estimated GFR (MDRD) Non-Af Amer 93 >60 [facility] Comment on above: mL/min/1.73m2 CKD-EP I Creatinine Equation (2020) Glomerular filtration rate ( GFR) estimation/1.73 sq m using serum, plasma, or whole bOrdered By: Janes Lara on 12-05-2024 GFR/1.73 sq M.predicted among non-blacks MDRD (S/P/Bld) [Vol rate/Area] 93 mL/min/{1.73_m2} >60 [facility] Comment on above: mL/min/1.73m2 CKD-EP I Creatinine Equation (2020) Hematocrit Auto (Bld) [Volum e fraction]Ordered By: Janes Lara on 12-05-2024 Hematocrit (Bld) [Volume fraction] 40.1 % 40-54 [facility] Hemoglobin measurementOrdere d By: Janes Lara on 12-05-2024 Hemoglobin (Bld) [Mass/Vol] 13.6 g/dL 13.0-16.5 [facility] Immature granulocytes/100 WB C Auto (Bld)Ordered By: Janes Lara on 12-05-2024 Immature granulocytes/100 WBC (Bld) 0.200 % 0.0-0.9 [facility] Comment on above: IG% - Immature Granu locytes (promyelocytes, myelocytes and metamyelocytes) > 1% indicates that a LEFT SHIFT is Present. Lymphocytes Auto (Unsp spec) [#/Vol]Ordered By: Janes Lara on 12-05-2024 Lymphocytes (Bld) [#/Vol] 1.69 10*3/uL 0.83-4.51 [facility] Lymphocytes/100 WBC Auto (Un sp spec)Ordered By: Janes Lara on 12-05-2024 Lymphocytes/100 WBC (Bld) 31.1 % 19-41 [facility] MCV (mean corpuscular volume ) determinationOrdered By: Janes Lara on 12-05-2024 MCV (RBC) [Entitic vol] 95.5 fL High 80-94 [facility] Mean corpuscular hemoglobin (MCH) determinationOrdered By: Janes Lara on 12-05-2024 MCH (RBC) [Entitic mass] 32.4 pg High 27.0-32.0 [facility] Mean corpuscular hemoglobin concentration (MCHC) determinationOrdered By: Janes Lara on 12-05-2024 MCHC (RBC) [Mass/Vol] 33.9 g/dL 32-36 [facility] Mean platelet volume determi nationOrdered By: Janes Lara on 12-05-2024 Platelet mean volume (Bld) [Entitic vol] 10.3 fL 6.2-12.0 [facility] Monocyte percentageOrdered B y: Janes Lara on 12-05-2024 Monocytes/100 WBC (Bld) 5.9 % 0-10 [facility] Neutrophil percentageOrdered By: Janes Lara on 12-05-2024 Neutrophils/100 WBC (Bld) 60.9 % 47-70 [facility] Nucleated red blood cell per centageOrdered By: Janes Lara on 12-05-2024 Nucleated RBC/100 WBC (Bld) [Ratio] 0 % 0-5 [facility] Platelet countOrdered By: Tomer Lara on 12-05-2024 Platelets (Bld) [#/Vol] 240 10*3/uL 150-450 [facility] Potassium (Unsp spec) [Mass/ Vol]Ordered By: Janes Lara on 12-05-2024 Potassium [Moles/Vol] 4.1 mmol/L 3.3-5.1 [facility] Potassium measurement (mass/ volume)Ordered By: Janes Lara on 12-05-2024 Potassium (Unsp spec) [Mass/Vol] 4.1 mmol/L 3.3-5.1 [facility] RBC Auto (Bld) [#/Vol]Ordere d By: Janes Lara on 12-05-2024 RBC (Bld) [#/Vol] 4.20 10*6/uL Low 4.6-6.2 [facility] Serum creatinine measurement (mass/volume)Ordered By: Janes Lara on 12-05-2024 Creatinine [Mass/Vol] 0.90 mg/dL 0.70-1.20 [facility] Serum glucose measurement (m ass/volume)Ordered By: Janes Lara on 12-05-2024 Glucose [Mass/Vol] 94 mg/dL 70-99 [facility] Serum or plasma calcium sahara urement (mass/volume)Ordered By: Janes Lara on 12-05-2024 Calcium [Mass/Vol] 9.4 mg/dL 7.6-11.0 [facility] Serum or plasma urea nitroge n measurement (mass/volume)Ordered By: Janes Lara on 12-05-2024 Urea nitrogen [Mass/Vol] 25 mg/dL High 4-19 [facility] Sodium levelOrdered By: Janes Lara on 12-05-2024 Sodium [Moles/Vol] 139 mmol/L 133-145 [facility] White blood cell (WBC) count Ordered By: Janes Lara on 12-05-2024 WBC (Bld) [#/Vol] 5.4 10*3/uL 4.4-11.0 [facility] W[facility] Ctr History AND Physic shyam 10-19-2024 Wound Ctr History & Physical [facility] [address] [place] [address] H P Exam - Wound Care 10/19/24 1123 MR#: [id number] Acct: [id number] Name: REGINO BONILLA Rep #: [id number] : 1955 69 From: Tomas French DPM PCP: Dr. 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 Patient stated he was referred by his PCP Dr. Diaz. He has PMHx of chronic venous insufficiency, edema lower extremity, history of ulcerations to bilateral foot, PVD, and ALYSSA. Reports that this left hallux has been callused for many years but is now started to develop bruising/bleeding below the skin. He has had previous ulceration of the site in the past. Also reports that he has pain at the fifth metatarsal base to both feet due to excessive prominence of the styloid process. He does state that he sees [facility] and he undergoes debridement of hyperkeratosis in office. Patient denies wearing offloading inserts as he states they are too uncomfortable. He is noted to be wearing tighter fitting hiking boots. He denies any trauma to to the toe and denies drainage from toe. He denies being diabetic. Denies N/V/F/chills. Denies further complaints. [facility] Medical History Wears glasses Bone spur of foot Loss of hearing Anxiety Marijuana use Arthritis Syncope Heartburn Former smoker COPD (chronic obstructive pulmonary disease) CPAP (continuous positive airway pressure) dependence Leg cramps History of edema History of pain when walking Raynaud disease Neuropathy Home Medications ???Medication ???Instructions ???Recorded ???Last Taken ???Type multivitamin (Daily Multi-Vitamin 1 tab PO DAILY 06/07/23 09/05/23 History tablet) turmeric 100 mg-carlos 150 1 cap PO DAILY 06/07/23 09/05/23 H istory mg-olive 50 mg-oreg 150 mg-capryl capsule omega-3 fatty acids-fish oil 360 1 cap PO DAILY 08/20/23 09/05/23 H istory mg-1,200 mg capsule (Fish Oil) polyethylene glycol 3350 17 4 g PO DAILY PRN constipation 08/02 04/25 Unknown History gram/dose oral powder (Miralax) gabapentin 400 mg capsule 400 mg PO DAILY 05/23/24 Unknown H istory fluticasone propionate 50 1 spray intranasal BID nasal 06/18 Unknown Rx mcg/actuation nasal congestion #16 grams spray,suspension Allergy/AdvReac Type Severity Reaction Status Date / Time grass pollen Allergy runny nose Verified 10/08/24 18:54 Family History Father Diabetes ALYSSA (obstructive sleep apnea) Surgical History Hx of colonoscopy Hx of LASIK Hx of oral surgery Hx of right cataract extraction Hx of left cataract extraction Hx of appendectomy Social History household members: none current occupational status: retired Smoking Status: Never smoker second hand exposure: No alcohol intake: current alcohol intake frequency: a few times a week details: stopped drinking one year ago substance use type: does not use what type of physical activity do you participate in: walking and bicycling anam/voodoo: Holiness ROS Constitutional Constitutional: Denies anorexia, chills, fatigue or fever(s) Eyes Eyes: Denies blurry vision, change in vision or double vision ENT HEENT: Denies dysphagia, nasal congestion, nasal discharge or sore throat Cardiovascular Cardiovascular: Denies chest pain, claudication or palpitations Respiratory/Chest Respiratory/Chest: Denies cough, shortness of breath at rest or wheezing Gastrointestinal Gastrointestinal: Denies abdominal pain, constipation, diarrhea, nausea or vomiting Genitourinary Genitourinary: Denies dysuria, hematuria or urinary urgency Musculoskeletal Musculoskeletal: Denies joint pain, joint stiffness or joint swelling Integumentary Integumentary: Denies lesions, pruritus or rash Neurologic Neurologic: Denies dizziness, numbness or seizures Psychiatric Psychiatric: Denies anxiety or depression Endocrine Endocrinology: Denies cold intolerance, heat intolerance, polydipsia or polyuria Hematologic/Lymphatic Hematologic/Lymphatic: Denies easy bleeding or easy bruising Vital Signs Vital Signs Vital Signs: 10/19/24 10:23 Temperature 96.7 F L Temperature Source Temporal Pulse Rate 62 Respiratory Rate 18 Blood Pressure 137/73 H Blood Pressure Mean 94 Blood Pressure Source Monitor Blood Pressure Pos (more content not included)... Normal [facility] Emergency Department Summary on 10-08-2024 Emergency Department Summary [facility] Medical Records Department [address] [place] [address] Emergency Department Summary 10/08/24 MR#: [id number] Acct: [id number] Name: REGINO BONILLA Rep #: [id number] : 1955 69 From: Lenny Olivia MD PCP: Dr. Regino Diaz, DO Status:REG ER Location: ED HPI HPI - URI History of Present Illness Chief Complaint: Other, Pain/Inj Informant: patient Narrative Narrative: 69-year-old male presents with rhinorrhea and postnasal drip symptoms causing him to spit out his rhinorrhea often which she states is annoying. He states he was diagnosed with a sinus infection and prescribed antibiotics, he states this is the third week of symptoms, he has already taken Augmentin and he has not on open new 10-day course of Augmentin that he is getting ready to start. He does not have any new symptoms. He denies any fevers or chills. He has an occasional mild cough but he denies any chest symptoms or dyspnea. He denies any facial pain or significant headaches. ROS ROS ED Constitutional Constitutional ED: Denies chills or fever(s) Eyes Eyes: Denies change in vision ENT ENT ED: Reports nasal congestion and rhinorrhea; Denies abnormal hearing, dizziness, headache(s), nose pain, otalgia, sinus pain, sinus pressure, sore throat, tongue swelling or vertigo Cardiovascular Cardiovascular: Denies chest pain or palpitations Respiratory/Chest Respiratory/Chest: Reports cough; Denies dyspnea Gastrointestinal Gastrointestinal: Denies abdominal pain, diarrhea, nausea or vomiting Genitourinary Genitourinary ED: Denies dysuria or hematuria Musculoskeletal Musculoskeletal: Denies myalgias or neck pain Integumentary Denies abscess or rash Neurologic Neurologic: Denies headache(s), paresthesias or weakness Psychiatric Psychiatric: Denies depression or suicidal thoughts Endocrine Endocrinology: Denies polydipsia or polyuria [facility] Medical History Wears glasses Bone spur of foot Loss of hearing Anxiety Marijuana use Arthritis Syncope Heartburn Former smoker COPD (chronic obstructive pulmonary disease) CPAP (continuous positive airway pressure) dependence Leg cramps History of edema History of pain when walking Raynaud disease Neuropathy Home Medications ???Medication ???Instructions ???Recorded ???Last Taken ???Type multivitamin (Daily Multi-Vitamin 1 tab PO DAILY 06/07/23 09/05/23 History tablet) turmeric 100 mg-carlos 150 1 cap PO DAILY 06/07/23 09/05/23 H istory mg-olive 50 mg-oreg 150 mg-capryl capsule omega-3 fatty acids-fish oil 360 1 cap PO DAILY 08/20/23 09/05/23 H istory mg-1,200 mg capsule (Fish Oil) polyethylene glycol 3350 17 4 g PO DAILY PRN constipation 08/02 04/25 Unknown History gram/dose oral powder (Miralax) gabapentin 400 mg capsule 400 mg PO DAILY 05/23/24 Unknown H istory fluticasone propionate 50 1 spray intranasal BID nasal 06/18 Unknown Rx mcg/actuation nasal congestion #16 grams spray,suspension Allergy/AdvReac Type Severity Reaction Status Date / Time grass pollen Allergy runny nose Verified 10/08/24 18:54 Family History Father Diabetes ALYSSA (obstructive sleep apnea) Surgical History Hx of colonoscopy Hx of LASIK Hx of oral surgery Hx of right cataract extraction Hx of left cataract extraction Hx of appendectomy Social History household members: none current occupational status: retired Smoking Status: Never smoker second hand exposure: No alcohol intake: current alcohol intake frequency: a few times a week details: stopped drinking one year ago substance use type: does not use what type of physical activity do you participate in: walking and bicycling anam/voodoo: Holiness EXAM Physical Exam Const Vital Signs: 10/08/24 18:52 Temperature 98.2 F Temperature Source Temporal Pulse Rate 78 Respiratory Rate 15 Blood Pressure 157/75 H Blood Pressure Mean 102 Pulse Ox 100 Oxygen Delivery Method Room Air Positive well nourished and well developed Constitutional Narrative: Well-appearing in no distress General Appearance ED: well developed and NAD HEENT Reports moist mucous membranes HEENT Narrative: No sinus tenderness anywhere. No active nasal discharge of any type or nasal turbinate edema. Posterior pharynx is normal and clear. normocephalic and atraumatic Throat: Negative for posterior oropharynx abnormal Eyes PERRL and EOMs intact bilaterally Neck no lymphadenopathy, supple and no meningeal signs Resp normal respiratory effort and clear to aus (more content not included)... Normal [facility] Magnetic resonance imaging r eportOrdered By: Regino Burgess on 10-02-2024 Study report [facility] Imaging Services [address] [place], [place] [id number] Lower Ext/No Jt/w/o MR#: [id number] Acct: [id number] Name: REGINO BONILLA Rep #: [id number] : 1955 M 69 From: Jayme Burgess DO PCP: Dr. Regino Diaz DO Status: REG CLI Study:Lower Ext/No Jt/w/o Date of Exam: 09/29/24 Exam# [id number] Ordering Dr: Doug Diaz DPM PROCEDURE: MRI right foot without IV contrast REASON FOR EXAM: Pain, neuropathy TECHNIQUE: Multisequence multiplanar MR images of the right midfoot and forefoot were obtained without the administration of intravenous contrast. COMPARISON: None. FINDINGS Negative for fracture or marrow replacement. No significant bone marrow edema. No sizeable joint effusions. Visualized tendons are intact. Visualized plantar fascia is within normal limits. Collateral ligaments are within normal limits. 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 Moderate diffuse muscle atrophy and edema. No discrete mass. MRI/Lower Ext/No Jt/w/o IMPRESSION: 1. Negative for fracture. 2. Mild/moderate degenerative changes of the midfoot and 1st MTP joint. 3. Diffuse muscle atrophy and edema which can be seen with denervation. Please correlate. Reading Location: [facility] CC: ANAND Diaz; Dr. Regino Diaz, ~ [employer] Analyst: Signed [facility] Pulmonary Visit Reporton Pulmonary Visit Report [facility] Pulmonary Medicine of [address] [place] [address] OFFICE VISIT Date of Service: 10/02/24 MR#: [id number] Acct: [id number] Name: REGINO BONILLA Rep #: [id number] : 1955 Provider: FABI Og Age/Sex: 69/M Location: [facility] [place] Status: Signed Assessment and Plan Assessment and Plan (1) ALYSSA (obstructive sleep apnea): Status: Chronic Plan: He is using and benefiting from Pap therapy. Encouraged better compliance with PAP therapy. No indication for titration study at this time. Continue to encourage weight loss. Contact the office for any new or worsening symptoms in the meantime. Follow-up in 1 year. (2) Sinusitis: Status: Acute Qualifiers: Chronicity: acute Recurrence: recurrent Sinusitis location: maxillary Qualified Code(s): J01.01 - Acute recurrent maxillary sinusitis Plan: Treating with a course of Augmentin. Encouraged better compliance with his PAP machine once the sinus infection is improved. Medications: New amoxicillin-pot clavulanate 875-125 mg 1 TAB PO BID 20 tabs 0RF Discontinued fluticasone propionate 50 mcg/actuation Discontinued Reason: Duplicate Order 1 spray intranasal BID PRN nasal congestion azithromycin Discontinued Reason: Order Completed 500 mg PO DAILY 3 days 3 tabs 0RF prednisone Discontinued Reason: Order Completed 40 mg (2 x 20 mg) PO DAILY 4 days 8 tabs 0RF Plan Details Follow Up: 1 Year ([facility]) HPI 1 Y FU Chief Complaint: routine follow up HPI Comments Details: This patient presents to the office today for follow-up of his obstructive sleep apnea. He is ambulatory and currently on room air. He has not been seen in the ED or urgent care for any respiratory illness since his last office visit. He was treated by his primary care doctor with antibiotics and steroids for sinus infection 2 weeks ago. Unfortunately, the patient continues to be symptomatic. He states it is just not working. He denies any difficulty with shortness of breath. Has denies any cough, sputum production or hemoptysis. He is reporting sinus pressure and clear to yellow drainage from his nose. Has not had any wheezing, chest tightness, chest pain or palpitations. He denies any fever, chills or body aches. He wakes feeling rested. He admits that he has not been as compliant as he was previously, this has been due to the sinus infection. He is not having difficulty with dry mouth. He denies morning headaches. He is not requiring naps. He is not having excessive nocturia. Compliance report shows 67% compliance for the past 30 days. Average use is 6 hours and 52 minutes per night. Current setting is a CPAP of 11 cm of water with residual AHI of 2.8 events per hour. Leaks do not appear to be problematic. 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 DME Vendor: [employer] Accompanied by: Self Is patient in pain?: Yes (neck) Pain scale (1-10): 6 Allergies grass pollen Allergy (Verified 10/02/24 10:34) runny nose Medications ???Medication ???Instructions ???Recorded ???Confirmed ???Type multivitamin (Daily Multi-Vitamin 1 tab PO DAILY 06/07/23 10/02/24 History tablet) turmeric 100 mg-carlos 150 1 cap PO DAILY 06/07/23 10/02/24 H istory mg-olive 50 mg-oreg 150 mg-capryl capsule omega-3 fatty acids-fish oil 360 1 cap PO DAILY 08/20/23 10/02/24 H istory mg-1,200 mg capsule (Fish Oil) polyethylene glycol 3350 17 4 g PO DAILY PRN constipation 08/0210/02/24 History gram/dose oral powder (Miralax) gabapentin 400 mg capsule 400 mg PO DAILY 05/23/24 10/02/24 History fluticasone propionate 50 1 spray intranasal BID nasal 06/1810/02/24 Rx mcg/actuation nasal congestion #16 grams spray,suspension amoxicillin 875 mg-potassium 1 tab PO BID #20 tabs 10/02/2410/24 Rx clavulanate 125 mg tablet Have you fallen in the past year?: No PFSH Medical History Wears glasses Bone spur of foot Loss of hearing Anxiety Marijuana use Arthritis Syncope Heartburn Former smoker COPD (chronic obstructive pulmonary disease) CPAP (continuous positive airway pressure) dependence Leg cramps History of edema History of pain when walking Raynaud disease Neuropathy Surgical History (more content not included)... Normal [facility] Lower Ext/No Jt/w/oon 2024 Lower Ext/No Jt/w/o [facility] Imaging Services [address] [place] [address] Lower Ext/No Jt/w/o MR#: [id number] Acct: [id number] Name: REGINO BONILLA Rep #: [id number] : 1955 M 69 From: Regino Horta PCP: Dr. Regino Diaz DO Status: REG CLI Study: Lower Ext/No Jt/w/o Date of Exam: 09/29/24 Exam# [id number] Ordering Dr: Doug Diaz DPM PROCEDURE: MRI right foot without IV contrast REASON FOR EXAM: Pain, neuropathy TECHNIQUE: Multisequence multiplanar MR images of the right midfoot and forefoot were obtained without the administration of intravenous contrast. COMPARISON: None. FINDINGS Negative for fracture or marrow replacement. No significant bone marrow edema. No sizeable joint effusions. Visualized tendons are intact. Visualized plantar fascia is within normal limits. Collateral ligaments are within normal limits. 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 Moderate diffuse muscle atrophy and edema. No discrete mass. MRI/Lower Ext/No Jt/w/o IMPRESSION: 1. Negative for fracture. 2. Mild/moderate degenerative changes of the midfoot and 1st MTP joint. 3. Diffuse muscle atrophy and edema which can be seen with denervation. Please correlate. Reading Location: [facility] CC: ANAND Diaz; Dr. Regino Diaz DO [employer] Dis[employer] Analyst: Signed Normal [facility] Venous Duplex US - Rodolfo Extre mon 09-12-2024 Venous Duplex US - Rodolfo Extrem [facility] Cardiovascular Services [address] [place] [address] Venous Duplex US - Rodolfo Extrem 09/12/24 1412 MR#: [id number] Acct: [id number] Name: REGINO BONILLA Rep #: [id number] : 1955 68 From: Raffaele Gutierrez MD Attending Dr: TAYLOR BarlowM Status: REG CLI Ordering Dr: Doug Diaz DPM Date: 09/12/24 Location: [facility] Sex: M C Admitted: Reason For Study Reason For Study: Bilateral leg pain RIGHT LEFT GSV is normal. GSV is normal. CFV is compressible, spontaneous, phasic, competent CFV is compressible, spontaneous, phasic, competent, and demonstrates normal augmentation. and demonstrates normal augmentation. FV is compressible, spontaneous, phasic, competent FV is compressible, spontaneous, phasic, competent and demonstrates normal augmentation. and demonstrates normal augmentation. POP V is compressible, spontaneous, phasic, competent POP V is compressible, spontaneous, phasic, competent and demonstrates normal augmentation. and demonstrates normal augmentation. T/P Trunk is compressible. T/P Trunk is compressible. PTV is compressible. PTV is compressible. RT PerV is compressible. LT PerV is compressible. Procedure This is a venous duplex using B-mode, color flow and spectral Doppler. Exam performed in department. A preliminary report was called and/or faxed to Dr. Diaz. VL/Venous Duplex US - Rodolfo Extrem Interpretation Summary Deep veins of the bilateral lower extremities are patent and compressible segmentally. There is no evidence of bilateral lower extremities deep vein thrombosis. The bilateral great saphenous veins appear patent and compressible segmentally. Ordering Physician: Doug Diaz Referring Physician: Regino Diaz Performed By: Teresa Cesar RVT 09/12/24 1740 Date Raffaele Gutierrez MD CC: DPM Dr. Doug Diaz; Dr. Regino Diaz, Date Dictated: 09/12/24 1412 Date Transcribed: 09/12/24 1740 Iap Displays Analyst: Signed Normal [facility] FUNDUS AUTOFLUORESCENCE PHOT O (FAF) OU (BOTH EYES)on 08-31-2024 [facility] FUNDUS PHOTOS OU (BOTH EYES) on 08-31-2024 [facility] OCT MACULA CIRRUS OU (BOTH E YES)on 08-31-2024 [facility] FUNDUS AUTOFLUORESCENCE PHOT O (FAF) OU (BOTH EYES)on 08-30-2024 Radiology Study observation (narrative) [facility] FUNDUS PHOTOS OU (BOTH EYES) on 08-30-2024 Radiology Study observation (narrative) [facility] OCT MACULA CIRRUS OU (BOTH E YES)on 08-30-2024 Radiology Study observation (narrative) [facility] Culture, Anaerobic Any Sourc brandy 08-14-2024 CUAN #1 Studies have conf irmed that Anaerobic Gram Positive Cocci are routinely SUSCEPTABLE to Penicillin and generally susceptible to Beta-lactams and Beta-lactamase inhibitors, Cephalosporins, Carbapenems and Metronidazole. They are showing increased RESISTANCE to Clindamycin Bacteria Spec Anaerobe Cult #2 PREVIOUSLY ACTINOMYCES. Anaerobic non-spore forming gram positive rods are usually SUSCEPTIBLE to Beta-lactams and Beta-lactamase inhibitors, Linezolid, and Daptomycin. They are usually RESISTANT to Metronidazole. Anaerobic cocci Xochitl martinez Normal [facility] Comment on above: Performed By: #### M 100.3000, M100.2000, M100.4001 ####[facility] [id number] [facility] [place], [address] Emergency Department Summary on 08-11-2024 Emergency Department Summary [facility] Medical Records Department [address] [place] [address] Emergency Department Summary 08/11/24 MR#: [id number] Acct: [id number] Name: CHADREGINO Grace Rep #: [id number] : 1955 68 From: Ubaldo Pringle PCP: Dr. Regino Diaz DO Status:DEP ER Location: ED HPI History of Present Illness Chief Complaint: Other, Pain/Inj Narrative Narrative: 68-year-old male states he has had right posterior neck pain for the last 3 weeks. There was no injury. He states the area just hurts when he moves his neck around. He has no pain that radiates into his arms. No weakness or numbness or tingling. He was seen here and had normal cervical x- rays and told to take Tylenol or Advil. He states his friend told him that elderly people should not take Advil so he never tried it. The only thing he has tried is aspirin which she took yesterday with some relief. [facility] Medical History Wears glasses Bone spur of foot Loss of hearing Anxiety Marijuana use Arthritis Syncope Heartburn Former smoker COPD (chronic obstructive pulmonary disease) CPAP (continuous positive airway pressure) dependence Leg cramps History of edema History of pain when walking Raynaud disease Neuropathy Home Medications ???Medication ???Instructions ???Recorded ???Last Taken ???Type fluticasone propionate 50 1 spray intranasal BID PRN nasal 06/07/23 Unknown History mcg/actuation nasal congestion spray,suspension multivitamin (Daily Multi-Vitamin 1 tab PO DAILY 06/07/23 09/05/23 History tablet) turmeric 100 mg-carlos 150 1 cap PO DAILY 06/07/23 09/05/23 History mg-olive 50 mg-oreg 150 mg-capryl capsule omega-3 fatty acids-fish oil 360 1 cap PO DAILY 08/20/23 09/05/23 History mg-1,200 mg capsule (Fish Oil) polyethylene glycol 3350 17 4 g PO DAILY PRN constipation 08/20/23 Unknown History gram/dose oral powder (Miralax) pregabalin 100 mg capsule 100 mg PO BID 09/23/23 Unknown History gabapentin 400 mg capsule 400 mg PO DAILY 05/23/24 Unknown History hydroxyzine pamoate 25 mg capsule 25 mg PO TID PRN itching #20 caps 06/02/24 Unknown Rx (Vistaril) azithromycin 500 mg tablet 500 mg PO DAILY 3 days #3 tabs 06/18/24 Unknown Rx fluticasone propionate 50 1 spray intranasal BID nasal 06/18/24 Unknown Rx mcg/actuation nasal congestion #16 grams spray,suspension prednisone 20 mg tablet 40 mg (2 x 20 mg) PO DAILY 4 days 08/11/24 Unknown Rx #8 tabs Allergy/AdvReac Type Severity Reaction Status Date / Time grass pollen Allergy runny nose Verified 08/11/24 17:02 Family History Father Diabetes ALYSSA (obstructive sleep apnea) Surgical History Hx of colonoscopy Hx of LASIK Hx of oral surgery Hx of right cataract extraction Hx of left cataract extraction Hx of appendectomy Social History household members: none current occupational status: retired Smoking Status: Never smoker second hand exposure: No alcohol intake: current alcohol intake frequency: a few times a week details: stopped drinking one year ago substance use type: does not use what type of physical activity do you participate in: walking and bicycling anam/voodoo: Holiness ROS ROS ED ROS Narrative Constitutional: Negative for fever, chills, malaise. Neuro: Negative for headache. Neuro: Negative for motor or sensory changes. EXAM Physical Exam Narrative Exam Narrative: CONST: Patient sitting in no acute distress. EYES: Normal inspection. HEAD: Normocephalic atraumatic. NECK: Normal inspection. No midline tenderness or step-offs. Right cervical paraspinal tenderness with movement. Supple, no meningismus. RESP: No respiratory distress, CTAB. CVS: Regular rate and rhythm, no murmur, no gallop. SKIN: Color normal, no rash, warm, dry, intact. 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 Normal sensation. 2+ radial pulses. NEURO: Alert and answering questions appropriately. PSYCH: Normal affect. Const Vital Signs: 08/11/24 17:02 08/11/24 17:16 08/11/24 17:26 Temperature 97.9 F 97.9 F Temperature Source Oral Pulse Rate 77 77 Respiratory Rate 18 18 Respiratory Effort Normal Respiratory Pattern Normal Blood Pressure 151/84 H 151/84 H Blood Pressure Mean 106 106 Pulse Ox 99 99 Oxygen Delivery Method Room Air Physical Exam Const Vital Signs: 08/11/24 17:02 08/11/24 17:16 08/11/24 17:26 Temperature 97.9 F 97.9 F Temperature Source Oral Pulse Rate 77 77 Re (more content not included)... Normal [facility] Wound Cultureon 08-11-2024 #2, 3 Clinical corre lation necessary, Possible skin contamination. Enterobacter cloacae complex Amount Growth 1+ Staphylococcus capitis Staphylococcus capitis SAURI Amount Growth 1+ * This is an amended result. * A prior result that was reported as final has been changed. 08/11/24 1321 by LEANDER Enterobacter cloacae complex: REACTION Cefepime Islt GISELA <=0.12 S Ciprofloxacin Islt GISELA <=0.06 S Gentamicin Islt GISELA <=1 levoFLOXacin Islt GISELA <=0.12 S Meropenem Islt GISELA <=0.25 S Pip+Tazo Islt GISELA <=4 S TMP SMX Islt GISELA <=20 S Staphylococcus capitis: REACTION cefOXitin Susc Islt NEG Doxycycline Islt GISELA <=0.5 S Clindamycin Islt GISELA >=4 Clindamycin.induced Susc Islt NEG Erythromycin Islt GISELA >=8 R Gentamicin Islt GISELA <=0.5 S Linezolid Islt GISELA 2 S Oxacillin Susc Islt <=0.25 S Tetracycline Islt GISELA <=1 S TMP SMX Islt GISELA <=10 S Vancomycin Islt GISELA 1 S Staphylococcus auricularis: REACTION cefOXitin Susc Islt POS Doxycycline Islt GISELA 1 S Clindamycin Islt GISELA Clindamycin.induced Susc Islt POS Erythromycin Islt GISELA >=8 R Gentamicin Islt GISELA <=0.5 S Linezolid Islt GISELA 2 S Oxacillin Susc Islt 0.5 R Tetracycline Islt GISELA >=16 R TMP SMX Islt GISELA 80 R Vancomycin Islt GISELA <=0.5 S Normal [facility] Comment on above: Performed By: #### M 100.3000, M100.2000, M100.4001 ####[facility] [id number] [place], [address] Gram Stainon 08-08-2024 GS Gram Stain 2+ Gram positive cocci Rare Gram negative rods No White Blood Cells Normal [facility] Comment on above: Performed By: #### M 100.3000, M100.2000, M100.4001 ####[facility] [id number] [place], [address] Absolute neutrophil countOrd ered By: Doug Diaz on 08-07-2024 Neutrophils (Bld) [#/Vol] 5.3 10*3/uL 2.0-7.7 [facility] Albumin to globulin ratioOrd ered By: Doug Diaz on 08-07-2024 Albumin/Globulin [Mass ratio] 1.1 {ratio} 0.9-2.4 [facility] Bacteria identified Anaer cx Nom (Unsp spec)Ordered By: Doug Diaz on 08-07-2024 Anaerobic Culture Anaerobic cocci Abnormal [facility] Anaerobic Culture Schaalia meyeri Abnormal [facility] Basophil percentageOrdered B y: Doug Diaz on 08-07-2024 Basophils/100 WBC (Bld) 0.4 % 0-1 [facility] Bilirubin, totalOrdered By: Doug Diaz on 08-07-2024 Bilirubin [Mass/Vol] 0.70 mg/dL 0.20-1.00 [facility] Comment on above: For patients on eltr ombopag therapy, use of Dimension Elizabeth TBIL is not recommended. Blood urea nitrogen (BUN)/cr eatinine ratioOrdered By: Doug Diaz on 08-07-2024 Urea nitrogen/Creatinine [Mass ratio] 20.6 mg/mg High 10-20 [facility] CBC W/Diff, Automatedon Absolute Lymph 0.98 X10 3/uL Normal 0.83-4.51 [facility] Comment on above: Performed By: #### L 100.0100, L500.4050 ####[facility] [id number] [place], [address] Absolute Neut 5.3 X10 3/uL Normal 2.0-7.7 [facility] Comment on above: Performed By: #### L 100.0100, L500.4050 ####[facility] [facility] [place] [address] [place], [address] Basophils/100 WBC (Bld) 0.4 % Normal 0-1 [facility] [place] Comment on above: Performed By: #### L 100.0100, L500.4050 ####[facility] [place] [address] [place], [address] Eosinophils/100 WBC (Bld) 0.1 % Normal 0-5 [facility] [place] Comment on above: Performed By: #### L 100.0100, L500.4050 ####[facility] [place] [address] [place], [address] Erythrocyte distribution width (RBC) [Ratio] 12.3 % Normal 11.6-14.6 [facility] [place] Comment on above: Performed By: #### L 100.0100, L500.4050 ####[facility] [place] [address] [place], [address] Hematocrit (Bld) [Volume fraction] 41.7 % Normal 40-54 [facility] [place] Comment on above: Performed By: #### L 100.0100, L500.4050 ####[facility] [place] [address] [place], [address] Hemoglobin (Bld) [Mass/Vol] 14.0 g/dL Normal 13.0-16.5 [facility] [place] Comment on above: Performed By: #### L 100.0100, L500.4050 ####[facility] [place] [address] [place], [address] IG% 0.300 Normal 0.0-0.9 [facility] [place] Comment on above: Result Comment: IG% - Immature Granulocytes (promyelocytes, myelocytes and metamyelocytes) > 1% indicates that a LEFT SHIFT is Present. Performed By: #### L 100.0100, L500.4050 ####[facility] [place] [address] [place], [address] Lymphocytes/100 WBC (Bld) 14.6 % Low 19-41 [facility] [place] Comment on above: Performed By: #### L 100.0100, L500.4050 ####[facility] [place] [address] [place], [address] MCH (RBC) [Entitic mass] 32.3 pg High 27.0-32.0 [facility] [place] Comment on above: Performed By: #### L 100.0100, L500.4050 ####[facility] [place] [address] [place], [address] MCHC (RBC) [Mass/Vol] 33.6 g/dL Normal 32-36 [facility] Comment on above: Performed By: #### L 100.0100, L500.4050 ####[facility] [place] [address] [place], [address] MCV (RBC) [Entitic vol] 96.1 fL High 80-94 [facility] [place] Comment on above: Performed By: #### L 100.0100, L500.4050 ####[facility] [place] [address] [place], [address] Monocytes/100 WBC (Bld) 5.2 % Normal 0-10 [facility] [place] Comment on above: Performed By: #### L 100.0100, L500.4050 ####[facility] [place] [address] [place], [address] Neutrophils/100 WBC (Bld) 79.4 % High 47-70 [facility] [place] Comment on above: Performed By: #### L 100.0100, L500.4050 ####[facility] [place] [address] [place], [address] Nucleated RBC (Bld) [#/Vol] 0 10*3/uL Normal 0-5 [facility] [place] Comment on above: Performed By: #### L 100.0100, L500.4050 ####[facility] [place] [address] [place], [address] Platelet mean volume (Bld) [Entitic vol] 10.6 fL Normal 6.2-12.0 [facility] [place] Comment on above: Performed By: #### L 100.0100, L500.4050 ####[facility] [place] [address] [place], [address] Platelets (Bld) [#/Vol] 258 10*3/uL Normal 150-450 [facility] [place] Comment on above: Performed By: #### L 100.0100, L500.4050 ####[facility] [place] [address] [place], [address] RBC (Bld) [#/Vol] 4.34 10*6/uL Low 4.6-6.2 [facility] Comment on above: Performed By: #### L 100.0100, L500.4050 ####[facility] [place] [address] [place], [address] RDW SD 44.1 fl High 35.1-43.9 [facility] [place] Comment on above: Performed By: #### L 100.0100, L500.4050 ####[facility] [place] [address] [place], [address] WBC (Bld) [#/Vol] 6.7 10*3/uL Normal 4.4-11.0 [facility] Comment on above: Performed By: #### L 100.0100, L500.4050 ####[facility] [place] [address] [place], [address] Carbon dioxide measurementOr dered By: Doug Diaz on 08-07-2024 CO2 [Moles/Vol] 33.0 mmol/L High 21.0-32.0 [facility] [place] Chloride measurementOrdered By: Doug Diaz on 08-07-2024 Chloride [Moles/Vol] 106 mmol/L 98-107 [facility] Comprehensive Metabolic Prof ilon 08-07-2024 Albumin [Mass/Vol] 4.1 g/dL Normal 3.2-5.0 [facility] Comment on above: Performed By: #### L 100.0100, L500.4050 ####[facility] [place] [address] [place], [address] Albumin/Globulin [Mass ratio] 1.1 {ratio} Normal 0.9-2.4 [facility] [place] Comment on above: Performed By: #### L 100.0100, L500.4050 ####[facility] [place] [address] [place], [address] ALK P 94 U/L Normal 45-117 [facility] [place] Comment on above: Performed By: #### L 100.0100, L500.4050 ####[facility] [place] [address] [place], [address] ALT [Catalytic activity/Vol] 26 U/L Normal 16-61 [facility] [place] Comment on above: Performed By: #### L 100.0100, L500.4050 ####[facility] [place] [address] [place], [address] AST [Catalytic activity/Vol] 19 U/L Normal 15-37 [facility] [place] Comment on above: Performed By: #### L 100.0100, L500.4050 ####[facility] [place] [address] [place], [address] Bilirubin [Mass/Vol] 0.70 mg/dL Normal 0.20-1.00 [facility] Comment on above: Result Comment: For patients on eltrombopag therapy, use of Dimension Elizabeth TBIL is not recommended. Performed By: #### L 100.0100, L500.4050 ####[facility] [place] [address] [place], [address] BUN/CRE 20.6 RATIO High 10-20 [facility] [place] Comment on above: Performed By: #### L 100.0100, L500.4050 ####[facility] [place] [address] [place], [address] CA,Total 9.7 mg/dL Normal 8.5-10.1 [facility] [place] Comment on above: Performed By: #### L 100.0100, L500.4050 ####[facility] [place] [address] [place], [address] Chloride [Moles/Vol] 106 mmol/L Normal 98-107 [facility] Comment on above: Performed By: #### L 100.0100, L500.4050 ####[facility] [place] [address] [place], [address] CO2 [Moles/Vol] 33.0 mmol/L High 21.0-32.0 [facility] [place] Comment on above: Performed By: #### L 100.0100, L500.4050 ####[facility] [place] [address] [place], [address] Creatinine [Mass/Vol] 1.36 mg/dL High 0.70-1.30 [facility] Comment on above: Result Comment: The validity of the calculated GFR GFRAA in patients over 70 years has not been determined. Clinical correlation is essential. Performed By: #### L 100.0100, L500.4050 ####[facility] [place] [address] [place], [address] EST GFR - AA 67 mL/min Normal >60 [facility] [place] Comment on above: Result Comment: Afri can Uzbek GFR Calc Performed By: #### L 100.0100, L500.4050 ####[facility] [place] [address] [place], [address] GAP 1 Low 5-15 [facility] [place] Comment on above: Performed By: #### L 100.0100, L500.4050 ####[facility] [place] [address] [place], [address] GFR/1.73 sq M.predicted among non-blacks MDRD (S/P/Bld) [Vol rate/Area] 55 mL/min/{1.73_m2} Low >60 [facility] [place] Comment on above: Result Comment: Non- GFR Calc Performed By: #### L 100.0100, L500.4050 ####[facility] [place] [address] [place], [address] Globulin (S) [Mass/Vol] 3.6 g/dL Normal 2.2-4.2 [facility] [place] Comment on above: Performed By: #### L 100.0100, L500.4050 ####[facility] [place] [address] [place], [address] Glucose [Mass/Vol] 108 mg/dL High 74-106 [facility] Comment on above: Result Comment: Fast ing Glucose result from 100 to 125 mg/dL suggests IMPAIRED HOMEOSTASIS per A.D.A. criteria. Performed By: #### L 100.0100, L500.4050 ####[facility] [place] [address] [place], [address] Potassium [Moles/Vol] 4.4 mmol/L Normal 3.5-5.1 [facility] Comment on above: Performed By: #### L 100.0100, L500.4050 ####[facility] [place] [address] [place], [address] Sodium [Moles/Vol] 141 mmol/L Normal 136-145 [facility] Comment on above: Performed By: #### L 100.0100, L500.4050 ####[facility] [place] [address] [place], [address] T PROT 7.7 g/dL Normal 6.4-8.2 [facility] [place] Comment on above: Performed By: #### L 100.0100, L500.4050 ####[facility] [place] [address] [place], [address] Urea nitrogen [Mass/Vol] 28 mg/dL High 7-18 [facility] [place] Comment on above: Performed By: #### L 100.0100, L500.4050 ####[facility] [place] [address] [place], [address] Eosinophil percentageOrdered By: Doug Diaz on 08-07-2024 Eosinophils/100 WBC (Bld) 0.1 % 0-5 [facility] [place] Erythrocyte distribution wid th ratioOrdered By: Doug Diaz on 08-07-2024 Erythrocyte distribution width (RBC) [Ratio] 12.3 % 11.6-14.6 [facility] [place] Erythrocyte distribution wid th standard deviationOrdered By: Doug Diaz on 08-07-2024 Erythrocyte distribution width (RBC) [Entitic vol] 44.1 fL High 35.1-43.9 [facility] [place] Estimated glomerular filtrat ion rate (GFR) AmericanOrdered By: Doug Diaz on 08-07-2024 Estimated GFR (MDRD) Amer 67 mL/min >60 [facility] [place] Comment on above: GFR Calc Glomerular filtration rate ( GFR) estimationOrdered By: Doug Diaz on 08-07-2024 Estimated GFR (MDRD) Non-Af Amer 55 mL/min Low >60 [facility] [place] Comment on above: Non- GFR Calc Glucose measurementOrdered B y: Doug Diaz on 08-07-2024 Glucose [Mass/Vol] 108 mg/dL High 74-106 [facility] Comment on above: Fasting Glucose resu lt from 100 to 125 mg/dL suggests IMPAIRED HOMEOSTASIS per A.D.A. criteria. Gram stainOrdered By: Brain Diaz on 08-07-2024 Microscopic observation Gram stain Nom (Unsp spec) [facility] [place] Hematocrit Auto (Bld) [Volum e fraction]Ordered By: Doug Diaz on 08-07-2024 Hematocrit (Bld) [Volume fraction] 41.7 % 40-54 [facility] [place] Hemoglobin measurementOrdere d By: Doug Diaz on 08-07-2024 Hemoglobin (Bld) [Mass/Vol] 14.0 g/dL 13.0-16.5 [facility] [place] Immature granulocytes/100 WB C Auto (Bld)Ordered By: Doug Diaz on 08-07-2024 Immature granulocytes/100 WBC (Bld) 0.300 % 0.0-0.9 [facility] [place] Comment on above: IG% - Immature Granu locytes (promyelocytes, myelocytes and metamyelocytes) > 1% indicates that a LEFT SHIFT is Present. Laboratory - Chemistry and C hemistry - challengeOrdered By: Doug Diaz on 08-07-2024 AST [Catalytic activity/Vol] 19 U/L 15-37 [facility] [place] Lymphocytes Auto (Unsp spec) [#/Vol]Ordered By: Doug Diaz on 08-07-2024 Lymphocytes (Bld) [#/Vol] 0.98 10*3/uL 0.83-4.51 [facility] [place] Lymphocytes/100 WBC Auto (Un sp spec)Ordered By: Doug Diaz on 08-07-2024 Lymphocytes/100 WBC (Bld) 14.6 % Low 19-41 [facility] [place] MCV (mean corpuscular volume ) determinationOrdered By: Doug Diaz on 08-07-2024 MCV (RBC) [Entitic vol] 96.1 fL High 80-94 [facility] [place] Mean corpuscular hemoglobin (MCH) determinationOrdered By: Doug Diaz on 08-07-2024 MCH (RBC) [Entitic mass] 32.3 pg High 27.0-32.0 [facility] [place] Mean corpuscular hemoglobin concentration (MCHC) determinationOrdered By: Doug Diaz on 08-07-2024 MCHC (RBC) [Mass/Vol] 33.6 g/dL 32-36 [facility] Mean platelet volume determi nationOrdered By: Doug Diaz on 08-07-2024 Platelet mean volume (Bld) [Entitic vol] 10.6 fL 6.2-12.0 [facility] [place] Monocyte percentageOrdered B y: Doug Diaz on 08-07-2024 Monocytes/100 WBC (Bld) 5.2 % 0-10 [facility] [place] Neutrophil percentageOrdered By: Doug Diaz on 08-07-2024 Neutrophils/100 WBC (Bld) 79.4 % High 47-70 [facility] [place] Nucleated red blood cell per centageOrdered By: Doug Diaz on 08-07-2024 Nucleated RBC/100 WBC (Bld) [Ratio] 0 % 0-5 [facility] [place] Platelet countOrdered By: Tomer Diaz on 08-07-2024 Platelets (Bld) [#/Vol] 258 10*3/uL 150-450 [facility] [place] Potassium measurementOrdered By: Doug Diaz on 08-07-2024 Potassium [Moles/Vol] 4.4 mmol/L 3.5-5.1 [facility] RBC Auto (Bld) [#/Vol]Ordere d By: Doug Diaz on 08-07-2024 RBC (Bld) [#/Vol] 4.34 10*6/uL Low 4.6-6.2 [facility] Routine wound cultureOrdered By: Doug Diaz on 08-07-2024 Wound Culture Enterobacter cloacae complex Abnormal [facility] [place] Wound Culture Staphylococcus capitis Abnormal [facility] [place] Wound Culture Staphylococcus auricularis Abnormal [facility] [place] Serum anion gap measurementO rdered By: Doug Diaz on 08-07-2024 Anion gap [Moles/Vol] 1 mmol/L Low 5-15 [facility] Serum globulin measurementOr dered By: Doug Diaz on 08-07-2024 Globulin (S) [Mass/Vol] 3.6 g/dL 2.2-4.2 [facility] [place] Serum or plasma alanine franklin otransferase (ALT) measurementOrdered By: Doug Diaz on 08-07-2024 ALT [Catalytic activity/Vol] 26 U/L 16-61 [facility] [place] Serum or plasma albumin sahara urement (mass/volume)Ordered By: Doug Diaz on 08-07-2024 Albumin [Mass/Vol] 4.1 g/dL 3.2-5.0 [facility] Serum or plasma alkaline lauren sphatase measurementOrdered By: Doug Diaz on 08-07-2024 ALP [Catalytic activity/Vol] 94 U/L 45-117 [facility] [place] Serum or plasma calcium sahara urement (mass/volume)Ordered By: Doug Diaz on 08-07-2024 Calcium [Mass/Vol] 9.7 mg/dL 8.5-10.1 [facility] Serum or plasma creatinine m easurement (mass/volume)Ordered By: Doug Diaz on 08-07-2024 Creatinine [Mass/Vol] 1.36 mg/dL High 0.70-1.30 [facility] Comment on above: The validity of the calculated GFR & GFRAA in patients over 70 years has not been determined. Clinical correlation is essential. Serum or plasma urea nitroge n measurement (mass/volume)Ordered By: Doug Diaz on 08-07-2024 Urea nitrogen [Mass/Vol] 28 mg/dL High 7-18 [facility] [place] Sodium levelOrdered By: Janes Diaz on 08-07-2024 Sodium [Moles/Vol] 141 mmol/L 136-145 [facility] Total proteinOrdered By: Agustin chris Emily on 08-07-2024 Protein [Mass/Vol] 7.7 g/dL 6.4-8.2 [facility] White blood cell (WBC) count Ordered By: Doug Diaz on 08-07-2024 WBC (Bld) [#/Vol] 6.7 10*3/uL 4.4-11.0 [facility] Cerv Spine 4 or 5 Viewson Cerv Spine 4 or 5 Views [facility] Imaging Services [address] [place], [place] [address] Cerv Spine 4 or 5 Views MR#: [id number] Acct: [id number] Name: REGINO BONILLA Rep #: [id number] : 1955 M 68 From: Silvano Gonsalves MD PCP: Dr. Regino Diaz, DO Status: REG ER Study: Cerv Spine 4 or 5 Views Date of Exam: 07/22/24 Exam# [id number] Ordering Dr: Yony Gonzales DO 0:[id number] STUDY: X-RAY - CERVICAL SPINE REASON FOR EXAM: Male, 68 years old. Neck pain and headache TECHNIQUE: 5 view(s) of the cervical spine were obtained. COMPARISON: None FINDINGS: Normal anterior atlantoaxial articulation. Normal odontoid process. There is straightening of the normal cervical lordosis. There is diffuse demineralization of the cervical spine. There is multi-level degenerative disc disease with multilevel disc space narrowing. There is multi-level osseous foraminal stenosis. The soft tissue structures are unremarkable. RAD/Cerv Spine 4 or 5 Views IMPRESSION: Multilevel degenerative changes, no acute findings Electronically Signed: Selwyn Gonsalves MD at 13:29 EST , CC: Dr. Regino Diaz DO; Dr. Yony Gonzales DO [employer] Analyst: Signed Normal [facility] [place] Emergency Department Summary on 07-22-2024 Emergency Department Summary [facility] Medical Records Department [address] [place] [id number] Emergency Department Summary 07/22/24 MR#: [id number] Acct: [id number] Name: REGINO BONILLA Rep #: [id number] : 1955 68 From: Yony Gonzales DO PCP: Dr. Regino Diaz DO Status:REG ER Location: ED HPI History of Present Illness Chief Complaint: Upper Extremity Injury Narrative Narrative: Patient is a 68-year-old male past medical history anxiety, COPD,, neuropathy, Raynaud's disease who presents to the emergency department with a chief complaint of neck popping. He states that this been going on for a significant mount of time and states that is happening more frequently therefore he came here today for further evaluation management. He states that he has not seen a doctor about his neck. Patient states that he does not notice anything that makes his symptoms worse or better. [facility] Medical History Wears glasses Bone spur of foot Loss of hearing Anxiety Marijuana use Arthritis Syncope Heartburn Former smoker COPD (chronic obstructive pulmonary disease) CPAP (continuous positive airway pressure) dependence Leg cramps History of edema History of pain when walking Raynaud disease Neuropathy Home Medications ???Medication ???Instructions ???Recorded ???Last Taken ???Type fluticasone propionate 50 1 spray intranasal BID PRN nasal 06/07/23 Unknown History mcg/actuation nasal congestion spray,suspension multivitamin (Daily Multi-Vitamin 1 tab PO DAILY 06/07/23 09/05/23 History tablet) turmeric 100 mg-carlos 150 1 cap PO DAILY 06/07/23 09/05/23 History mg-olive 50 mg-oreg 150 mg-capryl capsule omega-3 fatty acids-fish oil 360 1 cap PO DAILY 08/20/23 09/05/23 History mg-1,200 mg capsule (Fish Oil) polyethylene glycol 3350 17 4 g PO DAILY PRN constipation 08/20/23 Unknown History gram/dose oral powder (Miralax) pregabalin 100 mg capsule 100 mg PO BID 09/23/23 Unknown History gabapentin 400 mg capsule 400 mg PO DAILY 05/23/24 Unknown History hydroxyzine pamoate 25 mg capsule 25 mg PO TID PRN itching #20 caps 06/02/24 Unknown Rx (Vistaril) azithromycin 500 mg tablet 500 mg PO DAILY 3 days #3 tabs 06/18/24 Unknown Rx fluticasone propionate 50 1 spray intranasal BID nasal 06/18/24 Unknown Rx mcg/actuation nasal congestion #16 grams spray,suspension Allergy/AdvReac Type Severity Reaction Status Date / Time grass pollen Allergy runny nose Verified 07/22/24 11:50 Family History Father Diabetes ALYSSA (obstructive sleep apnea) Surgical History Hx of colonoscopy Hx of LASIK Hx of oral surgery Hx of right cataract extraction Hx of left cataract extraction Hx of appendectomy Social History household members: none current occupational status: retired Smoking Status: Never smoker second hand exposure: No alcohol intake: current alcohol intake frequency: a few times a week details: stopped drinking one year ago substance use type: does not use what type of physical activity do you participate in: walking and bicycling anam/voodoo: Holiness ROS ROS ED ROS Narrative Constitutional: Denies any fevers, chills, headaches, lightness, dizziness Eyes: Denies change in vision double vision blurry vision Cardiovascular: denies chest pain or palpitation Respiratory: Lungs denies coughing wheezing shortness of breath Abdomen: Denies abdominal pain nausea vomit diarrhea Neurological: Denies any numbness, weakness, tingling Musculoskeletal: Complains of neck popping as noted above Skin: Denies any rashes or lesions EXAM Physical Exam Narrative Exam Narrative: General: Patient lying in bed resting comfortably did not appear to be in acute distress Head: Atraumatic, normocephalic Eyes: PERRL body, EOMI biotic, no conjunctival injection noted Neck: Soft, supple, trachea midline, no tenderness to palpation the midline cervical spine patient has full range of motion of his neck without any difficulty no concern for meningitis Cardiovascular: Regular rate and rhythm Respiratory: Clear to auscultation bilaterally Extremities: +5/5 strength noted in the bilateral upper and lower extremities, radial pulses +2/4 in the bilateral extremities, no pedal edema no exam Neurological: Patient following commands knew that he was at [facility] year is 2023. Sensation grossly intact in the median, ulnar and radial nerve distribution bilaterally Skin: Warm, dry, intact Const Vital Signs: 07/22/24 11:48 Temperature 97 F L Temperature Source Temporal Pulse Rate 71 Respiratory Rate 16 Blo (more content not included)... Normal [facility] Emergency Department Summary on 06-18-2024 Emergency Department Summary [facility] Medical Records Department [address] [place] [address] Emergency Department Summary 06/18/24 MR#: [id number] Acct: [id number] Name: REGINO BONILLA Rep #: [id number] : 1955 68 From: Ata Torres MD PCP: Dr. 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 He denies any fevers or chills, no cough or shortness of breath. He has a slight headache from sinus pressure. He is to use fluticasone prescribed by his primary care provider but he ran out of this prescription medication. He presents because of continued pain in his sinuses along with nasal congestion and drainage. No exacerbating or alleviating factors. [facility] Medical History Wears glasses Bone spur of foot Loss of hearing Anxiety Marijuana use Arthritis Syncope Heartburn Former smoker COPD (chronic obstructive pulmonary disease) CPAP (continuous positive airway pressure) dependence Leg cramps History of edema History of pain when walking Raynaud disease Neuropathy Home Medications ???Medication ???Instructions ???Recorded ???Last Taken ???Type fluticasone propionate 50 1 spray intranasal BID PRN nasal 06/07/23 Unknown History mcg/actuation nasal congestion spray,suspension multivitamin (Daily Multi-Vitamin 1 tab PO DAILY 06/07/23 09/05/23 History tablet) turmeric 100 mg-carlos 150 1 cap PO DAILY 06/07/23 09/05/23 History mg-olive 50 mg-oreg 150 mg-capryl capsule omega-3 fatty acids-fish oil 360 1 cap PO DAILY 08/20/23 09/05/23 History mg-1,200 mg capsule (Fish Oil) polyethylene glycol 3350 17 4 g PO DAILY PRN constipation 08/20/23 Unknown History gram/dose oral powder (Miralax) pregabalin 100 mg capsule 100 mg PO BID 09/23/23 Unknown History gabapentin 400 mg capsule 400 mg PO DAILY 05/23/24 Unknown History hydroxyzine pamoate 25 mg capsule 25 mg PO TID PRN itching #20 caps 06/02/24 Unknown Rx (Vistaril) azithromycin 500 mg tablet 500 mg PO DAILY 3 days #3 tabs 06/18/24 Unknown Rx fluticasone propionate 50 1 spray intranasal BID nasal 06/18/24 Unknown Rx mcg/actuation nasal congestion #16 grams spray,suspension Allergy/AdvReac Type Severity Reaction Status Date / Time grass pollen Allergy runny nose Verified 06/18/24 10:24 Family History Father Diabetes ALYSSA (obstructive sleep apnea) Surgical History Hx of colonoscopy Hx of LASIK Hx of oral surgery Hx of right cataract extraction Hx of left cataract extraction Hx of appendectomy Social History household members: none current occupational status: retired Smoking Status: Never smoker second hand exposure: No alcohol intake: current alcohol intake frequency: a few times a week details: stopped drinking one year ago substance use type: does not use what type of physical activity do you participate in: walking and bicycling anam/voodoo: Holiness ROS ROS ED ROS Narrative Constitutional: No fever, no chills. HEENT: No sore throat. No neck pain. No loss of vision. Positive nasal congestion and rhinorrhea. Bilateral ear pain. Chronic loss of hearing. Cardiovascular: No chest pain. No palpitations. No pedal edema. Respiratory: No cough, no shortness of breath. Abdominal: No abdominal pain. No nausea. No vomiting. Genitourinary: No dysuria. No hematuria. Musculoskeletal: No myalgias. No arthralgias. Neurologic: No headaches. No dizziness. No lightheadedness. Skin: No rash. No change in color. EXAM Physical Exam Narrative Exam Narrative: Afebrile. Vital signs noted. Nontoxic-appearing. Head is normocephalic and atraumatic. PERRL, EOMI. Mild tenderness to percussion of the maxillary sinuses. Neck soft and supple without meningismus. TMs clear bilaterally without erythema. No mastoid tenderness or erythema. Cardiovascular examination regular rate and rhythm. Lungs are clear to auscultation bilaterally. Abdomen soft nontender with normal active bowel sounds. Neurological examination nonfocal and nonlateralizing. Const Vital Signs: 06/18/24 10:24 Temperature 98.5 F Temperature Source Oral Pulse Rate 70 Respiratory Rate 18 Blood Pressure 114/62 Blood Pressure Mean 79 Pulse Ox 100 Oxygen Delivery Method Room Air MDM MDM MDM Narrative Medical decision making narrative: Differentia (more content not included)... Normal [facility] Brain without Contraston Brain without Contrast [facility] Imaging Services [address] [place] [address] Brain without Contrast MR#: [id number] Acct: [id number] Name: REGINO BONILLA Rep #: [id number] : 1955 M 68 From: Yana christianson MD PCP: Dr. Regino Diaz DO Status: REG CLI Study: Brain without Contrast Date of Exam: 06/12/24 Exam# [id number] Ordering Dr: Vic Lopez MD [id number] HISTORY: cognitive deficits. TECHNIQUE: Multiplanar and multisequence MR images of the brain were obtained without contrast. 282 images. COMPARISON: CT 06/02/2024. FINDINGS: BRAIN PARENCHYMA: Minimal foci of increased T2 FLAIR signal in the bilateral frontal white matter. No abnormal focus of restricted diffusion. No acute intracranial hemorrhage identified. CSF SPACES: Cerebral ventricles, cortical sulci, and other extra-axial CSF spaces within normal limits in size for age. No significant midline shift or other mass effect.No extra-axial fluid collection. VASCULAR SYSTEM: Major intracranial flow voids are maintained. PARANASAL SINUSES AND MASTOID AIR CELLS: Right maxillary sinus mucous retention cyst. OTHER: Artifact from small metallic foreign body in the right parietal scalp. Bilateral lens resections. MRI/Brain without Contrast IMPRESSION: No evidence for acute infarct. Very mild chronic white matter changes. Electronically Signed: Yana Hernandez MD at 13:13 EST , CC: Dr. Vic Lopez MD; Dr. Regino Diaz DO [employer]ap Displays Analyst: Signed Normal [facility] Brain/Head without Contrasto n 06-02-2024 Brain/Head without Contrast [facility] Imaging Services [address] [place] [address] Brain/Head without Contrast MR#: [id number] Acct: [id number] Name: REGINO BONILLA Rep #: [id number] : 1955 M 68 From: Ankita Lopez MD PCP: Dr. Regino Diaz, DO Status: REG ER Study: Brain/Head without Contrast Date of Exam: 08/25 Exam# [id number] Ordering Dr: Howard Knowles CAN MACHINE OPERATOR-C [id number] INDICATION: headache EXAMINATION: CT BRAIN - CT Head or Brain W/O Contrast Injection TECHNIQUE: Multiple axial images were obtained of the head without intravenous contrast. The protocol utilizes one or more of the following dose reduction techniques: automated exposure control, adjustment of mA and/or kV according to patient size,and/or use of iterative reconstruction technique. IV Contrast dosage and agent: None. RADIATION DOSAGE (If Supplied By Facility): CTDIvol = ( 44.99 ) mGy, DLP = ( 863.60 ) mGycm COMPARISON: September 29, 2021 FINDINGS: BRAIN PARENCHYMA: No intra- or extra-axial hemorrhage. There are patchy foci of low attenuation within the white matter of the cerebral hemispheres, a nonspecific finding most commonly reflecting small vessel ischemia. No evidence of acute infarct. No intracranial mass or mass effect. There is preservation of the ariza/white matter interface. Posterior fossa structures are unremarkable. CSF SPACES: Appropriate for age. No hydrocephalus. Basal cisterns are patent. CALVARIUM, SKULL BASE, PARANASAL SINUSES AND MASTOID AIR CELLS: There are round low-attenuation foci within the right maxillary sinus may reflect mucous retention cysts or polyps. No discrete lytic or blastic abnormalities. ORBITS: Both globes, extraocular muscles, optic nerves and retrobulbar fat appear unremarkable. ASPECTS Score for Acute Strokes: 10 CT/Brain/Head without Contrast IMPRESSION: Small vessel ischemia. Electronically Signed: Ankita Lopez MD at 12:06 EDT , CC: FABI Knowles; Dr. Regino Diaz DO Iap Displays Analyst: Signed Normal [facility] Emergency Department Summary on 06-02-2024 Emergency Department Summary [facility] Medical Records Department [address] [place] [address] Emergency Department Summary 06/02/24 MR#: [id number] Acct: [id number] Name: REGINO BONILLA Rep #: [id number] : 1955 68 From: Doug Lopez DO PCP: Dr. Regino Diaz DO Status:DEP ER Location: ED HPI History of Present Illness Chief Complaint: General Illness Narrative Narrative: Patient is a 68-year-old male with history of type 2 diabetes neuropathy who presents to the emergency department for multiple symptoms. Patient states that he has had a headache for 6 months on and off, however is getting worse, he has seen his PCP regarding this. Patient also states that he has been having some nasal congestion, some facial pain and thinks he might have acute sinusitis. Denies any fever chills nausea or vomiting. Denies any cough, neurological symptoms. [facility] Medical History (Updated 06/02/24 @ 12:25 by FABI Goodrich) Wears glasses Bone spur of foot Loss of hearing Anxiety Marijuana use Arthritis Syncope Heartburn Former smoker COPD (chronic obstructive pulmonary disease) CPAP (continuous positive airway pressure) dependence Leg cramps History of edema History of pain when walking Raynaud disease Neuropathy Home Medications ???Medication ???Instructions ???Recorded ???Last Taken ???Type fluticasone propionate 50 1 spray intranasal BID PRN nasal 06/07/23 Unknown History mcg/actuation nasal congestion spray,suspension multivitamin (Daily Multi-Vitamin 1 tab PO DAILY 06/07/23 09/05/23 History tablet) turmeric 100 mg-carlos 150 1 cap PO DAILY 06/07/23 09/05/23 History mg-olive 50 mg-oreg 150 mg-capryl capsule omega-3 fatty acids-fish oil 360 1 cap PO DAILY 08/20/23 09/05/23 History mg-1,200 mg capsule (Fish Oil) polyethylene glycol 3350 17 4 g PO DAILY PRN constipation 08/20/23 Unknown History gram/dose oral powder (Miralax) pregabalin 100 mg capsule 100 mg PO BID 09/23/23 Unknown History gabapentin 400 mg capsule 400 mg PO DAILY 05/23/24 Unknown History hydroxyzine pamoate 25 mg capsule 25 mg PO TID PRN itching #20 caps 06/02/24 Unknown Rx (Vistaril) Allergy/AdvReac Type Severity Reaction Status Date / Time grass pollen Allergy runny nose Verified 06/02/24 10:43 Family History Father Diabetes ALYSSA (obstructive sleep apnea) Surgical History Hx of colonoscopy Hx of LASIK Hx of oral surgery Hx of right cataract extraction Hx of left cataract extraction Hx of appendectomy Social History household members: none current occupational status: retired Smoking Status: Never smoker second hand exposure: No alcohol intake: current alcohol intake frequency: a few times a week details: stopped drinking one year ago substance use type: does not use what type of physical activity do you participate in: walking and bicycling anam/voodoo: Holiness ROS ROS ED ROS Narrative Constitutional: Negative for fever, chills, weight loss, weakness Eyes: Negative for vision loss, vision change, double vision ENT: Negative for any sore throat,. Positive for ear pain, congestion Cardiovascular: Negative for any chest pain, tightness, palpitations Respiratory: Negative for any cough, sputum production, hemoptysis, dyspnea, dyspnea on exertion, orthopnea Gastrointestinal: Negative for any abdominal pain, nausea, vomiting, constipation, blood in stool, blood in vomit. Positive diarrhea : Negative for any urinary frequency, dysuria, retention, blood in urine Muscle skeletal: Negative for any neck pain, back pain Neurological: Negative for any syncope, dizziness. Positive for headache Skin: Negative for any rashes, itching, abrasions, lacerations Psychiatric: Negative for any depression, anxiety, stress, suicidal ideation, homicidal ideation Hematologic: Negative for any excessive bruising, easy bleeding EXAM Physical Exam Narrative Exam Narrative: Vital signs reviewed. HEET: Head normocephalic atraumatic, TMs clear bilaterally. Posterior pharynx is clear, moist mucous membranes. Nares clear bilaterally. Slight pain in the maxillary, frontal sinuses. No drainage noted. Neck: Supple with no lymphadenopathy or tenderness. No signs of meningismus. Cardiac: Regular rate and rhythm no murmurs gallops or rubs, equal peripheral pulses bilaterally. Respiratory: Lungs clear to auscultation bilaterally. No chest tenderness. Abdomen: Soft, nontender, nondistended. No abdominal bruit or pulsatile masses. No hepatosplenomegaly Extremities: No peripheral edema, no signs of gross trauma or deformity. Active full range of motion of all extremities. Neuro: Cranial (more content not included)... Normal [facility] M100.678on 06-02-2024 M100.678 Pending SARS-CoV-2 (COVID 19) Negative INFLUENZA A Negative INFLUENZA B Negative RSV PCR Negative Normal [facility] Comment on above: Performed By: #### M 100.678 #### [facility] Laboratory [facility] [address] [place], [place], [id number] Neurology Visit Reporton Neurology Visit Report [facility] [address], [address] [place] [id number] OFFICE VISIT Date of Service: 06/01/24 MR#: [id number] Acct: [id number] Name: REGINO BONILLA Rep #: [id number] : 1955 Provider: Dr. Vic begum MD Age/Sex: 68/M Location: [facility] Status: Signed HPI HPI Chief Complaint: Details: The patient is a 68-year-old __Right__ handed male who presents to [facility]. He was referred 05/23/[address] Regino Diaz with [facility] location for progressive neuropathy affecting both lower extremities. He had a bilateral lower extremity arterial exam 07/14/2021 with interpretation summary: no evidence of significant arterial occlusive disease in the lower extremities bilaterally. He had a right arterial duplex extremity done 10/22/2021 with interpretation summary: Right lower extremities no evidence of significant occlusive disease at rest with triphasic flow noted throughout. He had NCS/EMG done 04/28/2022 with impression: EMG findings of fibrillations and lumbar paraspinal muscles bilaterally and lower extremity muscles tested below the knee is consistent with probable chronic lumbosacral polyradiculopathy involving at least the L5-S1 root segments. He had a repeat bilateral lower extremity arterial exam done 12/13/2023 with interpretation summary: Right URI 1.28, normal. TBI and Doppler/PVR waveforms of the right leg normal at rest. Left URI 1.26, normal. TBI and Doppler/PVR waveforms of the left leg normal at rest. He had a repeat NCS/EMG done 05/10/2024 with impression: Findings consistent with a sensorimotor peripheral polyneuropathy with mixed features (axon loss and demyelinating) in a length dependent pattern. Patient presents by himself for evaluation. He lives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 statistically reflect mild chronic microvascular white matter ischemic disease. Ventricles: No evidence of hydrocephalus or ventricular effacement. Vessels: Atherosclerotic calcifications of the bilateral internal carotid siphons. Orbits: Unremarkable. Calvarium: Hyperostosis frontalis interna. Paranasal sinuses: Clear. Mastoid sinuses: Clear. IMPRESSION: 1. No acute intracranial pathology. 2. Mild parenchymal volume loss and chronic microvascular white matter ischemic disease. Interpreted by: Regino Bass MD Preliminary Report By: Regino Bass MD Electronically signed By Regino Bass MD Dictated Date: 04/17/2024 3:06:05 PM Prelim Date: 04/17/2024 3:09:09 PM Sign Date: 04/17/2024 3:09:09 PM Ordering Provider: MARQUITA Lambert [facility] LABORATORYOrdered By: Deedee Koroma on 04-17-2024 Appearance (U) Clear (04/17/24 2:25 PM) Normal Clear AO Auto Urine SS Bilirubin Ql (U) Negative (04/17/24 2:25 PM) Normal Negative AO Auto Urine SS Color (U) Yellow (04/17/24 2:25 PM) Normal AO Auto Urine SS Glucose Test strip (U) [Mass/Vol] Negative Normal Negative AO Auto Urine SS Hemoglobin Auto test strip (U) [Mass/Vol] Negative (04/17/24 2:25 PM) Normal Negative AO Auto Urine SS Ketones Ql (U) Negative Normal Negative AO Auto Urine SS UA Leuk Est Negative (04/17/24 2:25 PM) Normal Negative AO Auto Urine SS UA Nitrite Negative (04/17/24 2:25 PM) Normal Negative AO Auto Urine SS UA pH 6.0 (04/17/24 2:25 PM) Normal 5.0 - 8.0 AO Auto Urine SS UA Protein Negative Normal Negative AO Auto Urine SS UA Spec Grav 1.015 (04/17/24 2:25 PM) Normal 1.015-1.02 5 AO Auto Urine SS UA Specimen Type Clean Catch (04/17/24 2:25 PM) Normal AO Auto Urine SS UA Urobilinogen 0.2 E.U./dL Normal 0.2-1.0 AO Auto Urine SS LABORATORYOrdered By: SYSTEM SYSTEM on 04-17-2024 Basophils (Bld) [#/Vol] 0.0 103/mcL Normal 0.0 - 0.2 10^3/mcL AO Workflow SS Basophils/100 WBC (Bld) 0.6 % Normal 0.0 - 2.5 % AO Workflow SS Calcium [Mass/Vol] 9.0 mg/dL Normal 8.4 - 10. 2 mg/dL AO ADM SS Chloride [Moles/Vol] 106 mmol/L Normal 98 - 10 7 mmol/L AO ADM SS CO2 [Moles/Vol] 28 mmol/L Normal 23 - 31 mmol/L AO ADM SS Creatinine [Mass/Vol] 0.76 mg/dL Normal 0.70 - 1.30 mg/dL AO ADM SS Comment on above: Interpretive Data: T esting performed on Siemens Dimension EXL analyzer using a modified kinetic Judie technique. Electrolyte Balance 8.0 mEq/L Normal 4.0 - 15 .0 mEq/L AO ADM SS Eosinophil, Absolute 0.1 103/mcL Normal 0.0 - 0 .4 10^3/mcL AO Workflow SS Eosinophils/100 WBC (Bld) 1.1 % Normal 0.0 - 7.0 % AO Workflow SS Erythrocyte distribution width (RBC) [Ratio] 13.4 % Normal 11.5 - 14.5 % AO Workflow SS GFR/1.73 sq M.predicted among blacks MDRD (S/P/Bld) [Vol rate/Area] 124 ml/min/1.73sqm Invalid Interpretation Code AO Chemistry S Comment on above: Interpretive Data: GFR Population mean for , Non- Americans Ages 20-29 = 116 mL/min/1.73 sq.m. Ages 30-39 = 107 mL/min/1.73 sq.m. Ages 40-49 = 99 mL/min/1.73 sq.m. Ages 50-59 = 93 mL/min/1.73 sq.m. Ages 60-69 = 85 mL/min/1.73 sq.m. Ages 70+ = 75 mL/min/1.73 sq.m. Chronic Kidney Disease: Less than 60 mL/min/1.73 square meters End Stage Renal Disease: Less than 15 mL/min/1.73 square meters GFR/1.73 sq M.predicted among non-blacks MDRD (S/P/Bld) [Vol rate/Area] 102 ml/min/1.73sqm Invalid Interpretation Code AO Chemistry S Comment on above: Interpretive Data: GFR Population mean for , Non- Americans Ages 20-29 = 116 mL/min/1.73 sq.m. Ages 30-39 = 107 mL/min/1.73 sq.m. Ages 40-49 = 99 mL/min/1.73 sq.m. Ages 50-59 = 93 mL/min/1.73 sq.m. Ages 60-69 = 85 mL/min/1.73 sq.m. Ages 70+ = 75 mL/min/1.73 sq.m. Chronic Kidney Disease: Less than 60 mL/min/1.73 square meters End Stage Renal Disease: Less than 15 mL/min/1.73 square meters Glucose [Mass/Vol] 84 mg/dL Normal 80 - 115 mg/dL AO ADM SS Hematocrit (Bld) [Volume fraction] 40.8 % Low 42.0 - 52.0 % AO Workflow SS Hemoglobin (Bld) [Mass/Vol] 14.1 G/dL Normal 14.0 - 18.0 G/dL AO Workflow SS Lymphocytes (Bld) [#/Vol] 1.1 103/mcL Normal 0.8 - 3.9 10^3/mcL AO Workflow SS Lymphocytes/100 WBC (Bld) 21.8 % Normal 10.0 - 50.0 % AO Workflow SS MCH (RBC) [Entitic mass] 33.6 pg High 27.0 - 31.2 pg AO Workflow SS MCHC 34.4 G/dL Normal 31.8 - 35.4 G/dL AO Workflow SS MCV (RBC) [Entitic vol] 97.6 fL High 80.0 - 94.0 fL AO Workflow SS Monocyte distribution width Auto (Bld) [Entitic vol] 21.99 1 High 0.00 - 20.00 AO Workflow SS Comment on above: Result Comment: For adults in ED, MDW>20.0 may be associated with a higher risk of sepsis during the first 12hrs of hospital admission Monocytes (Bld) [#/Vol] 0.3 103/mcL Normal 0.2 - 1.0 10^3/mcL AO Workflow SS Monocytes/100 WBC (Bld) 5.6 % Normal 1.7 - 13.0 % AO Workflow SS Neutrophils (Bld) [#/Vol] 3.5 103/mcL Normal 2.9 - 6.2 10^3/mcL AO Workflow SS Neutrophils/100 WBC (Bld) 70.9 % Normal 37.0 - 80.0 % AO Workflow SS Platelet mean volume (Bld) [Entitic vol] 8.5 fL Normal 7.4 - 10.4 fL AO Workflow SS Platelets (Bld) [#/Vol] 195 103/mcL Normal 130 - 400 10^3/mcL AO Workflow SS Potassium [Moles/Vol] 4.3 mmol/L Normal 3.5 - 5.1 mmol/L AO ADM SS RBC (Bld) [#/Vol] 4.18 106/mcL Normal 4.04 - 6.13 10^6/mcL AO Workflow SS Sodium [Moles/Vol] 142 mmol/L Normal 136 - 145 mmol/L AO ADM SS Urea nitrogen [Mass/Vol] 13 mg/dL Normal 7 - 18 mg/dL AO ADM SS Urea nitrogen/Creatinine [Mass ratio] 17 ratio Normal 7 - 27 ratio AO ADM SS WBC (Bld) [#/Vol] 4.9 103/mcL Normal 4.6 - 10.8 10^3/mcL AO Workflow SS UAon 04-17-2024 Color (U) Yellow Normal [facility] Comment on above: Performed By: #### U A #### [address] [address] Glucose (U) [Mass/Vol] Negative Normal Negative [facility] Comment on above: Performed By: #### U A #### [address] [address] Ketones Ql (U) Negative Normal Negative [facility] Comment on above: Performed By: #### U A #### [address] [address] UA Appear Clear Normal Clear [facility] Comment on above: Performed By: #### U A #### [address] [address] UA Blood Negative Normal Negative [facility] Comment on above: Performed By: #### U A #### [address] [address] UA Leuk Est Negative Normal Negative [facility] Comment on above: Performed By: #### U A #### [place] [address] UA Nitrite Negative Normal Negative [facility] Comment on above: Performed By: #### U A #### [place] [address] UA pH 6.0 Normal 5.0 - 8.0 [facility] Comment on above: Performed By: #### U A #### [place] [address] UA Protein Negative Normal Negative [facility] Comment on above: Performed By: #### U A #### [place] [address] UA Spec Grav 1.015 Normal 1.015-1.02 5 [facility] Comment on above: Performed By: #### U A #### [place] [address] UA Specimen Type Clean Catch Normal [facility] Comment on above: Performed By: #### U A #### [place] [address] UA Urobilinogen 0.2 E.U./dL Normal 0.2-1.0 [facility] Comment on above: Performed By: #### U A #### [place] [address] Urobilinogen (U) [Mass/Vol] Negative Normal Negative [facility] Comment on above: Performed By: #### U A #### [place] [address] XR CHEST 1 VIEWon 04-17-2024 XR CHEST 1 VIEW ORIGINAL EXAMINATION: ONE XRAY VIEW OF THE CHEST04/17/2024 2:57 pm XR Chest portable upright COMPARISON: None HISTORY: ORDERING SYSTEM PROVIDED HISTORY: Reason for Exam: Altered mental status, FINDINGS: No suspicious nodule, acute infiltrate, consolidation,mass, pneumothorax, pleural fluid, or vascular congestion is seen. Heart size and mediastinal contours are within normal limits for age and projection. No acute skeletal abnormality. IMPRESSION: No acute cardiopulmonary process. Interpreted by: Jason Lopez MD Preliminary Report By: Jason Lopez MD Electronically signed By Jason Lopez MD Dictated Date: 04/17/2024 3:07:25 PM Prelim Date: 04/17/2024 3:07:44 PM Sign Date: 04/17/2024 3:07:44 PM Ordering Provider: MARQUITA Lambert [facility] CBC W/Diff, Automatedon 09-0 Absolute Lymph 1.15 X10 3/uL Normal 0.83-4.51 [facility] Comment on above: Performed By: #### L 501.6710, L101.9900, L100.0100 ####[facility] [address] [place], [address] Absolute Neut 2.9 X10 3/uL Normal 2.0-7.7 [facility] Comment on above: Performed By: #### L 501.6710, L101.9900, L100.0100 ####[facility] [address] [place], [address] Basophils/100 WBC (Bld) 0.4 % Normal 0-1 [facility] Comment on above: Performed By: #### L 501.6710, L101.9900, L100.0100 ####[facility] [address] [place], [address] Eosinophils/100 WBC (Bld) 1.3 % Normal 0-5 [facility] Comment on above: Performed By: #### L 501.6710, L101.9900, L100.0100 ####[facility] [address] [place], [address] Erythrocyte distribution width (RBC) [Ratio] 13.2 % Normal 11.6-14.6 [facility] Comment on above: Performed By: #### L 501.6710, L101.9900, L100.0100 ####[facility] [address] [place], [address] Hematocrit (Bld) [Volume fraction] 42.9 % Normal 40-54 [facility] Comment on above: Performed By: #### L 501.6710, L101.9900, L100.0100 ####[facility] [address] [place], [address] Hemoglobin (Bld) [Mass/Vol] 14.5 g/dL Normal 13.0-16.5 [facility] Comment on above: Performed By: #### L 501.6710, L101.9900, L100.0100 ####[facility] [address] [place], [address] IG% 0.200 Normal 0.0-0.9 [facility] Comment on above: Result Comment: IG% - Immature Granulocytes (promyelocytes, myelocytes and metamyelocytes) > 1% indicates that a LEFT SHIFT is Present. Performed By: #### L 501.6710, L101.9900, L100.0100 ####[facility] [address] [place], [address] Lymphocytes/100 WBC (Bld) 25.3 % Normal 19-41 [facility] Comment on above: Performed By: #### L 501.6710, L101.9900, L100.0100 ####[facility] [address] [place], [address] MCH (RBC) [Entitic mass] 32.4 pg High 27.0-32.0 [facility] Comment on above: Performed By: #### L 501.6710, L101.9900, L100.0100 ####[facility] [address] [place], [address] MCHC (RBC) [Mass/Vol] 33.8 g/dL Normal 32-36 [facility] Comment on above: Performed By: #### L 501.6710, L101.9900, L100.0100 ####[facility] [address] [place], [address] MCV (RBC) [Entitic vol] 95.8 fL High 80-94 [facility] Comment on above: Performed By: #### L 501.6710, L101.9900, L100.0100 ####[facility] [address] [place], [address] Monocytes/100 WBC (Bld) 8.1 % Normal 0-10 [facility] Comment on above: Performed By: #### L 501.6710, L101.9900, L100.0100 ####[facility] [address] [place], [address] Neutrophils/100 WBC (Bld) 64.7 % Normal 47-70 [facility] Comment on above: Performed By: #### L 501.6710, L101.9900, L100.0100 ####[facility] [address] [place], [address] Nucleated RBC (Bld) [#/Vol] 0 10*3/uL Normal 0-5 [facility] Comment on above: Performed By: #### L 501.6710, L101.9900, L100.0100 ####[facility] [address] [place], [address] Platelet mean volume (Bld) [Entitic vol] 10.4 fL Normal 6.2-12.0 [facility] Comment on above: Performed By: #### L 501.6710, L101.9900, L100.0100 ####[facility] [address] [place], [address] Platelets (Bld) [#/Vol] 190 10*3/uL Normal 150-450 [facility] Comment on above: Performed By: #### L 501.6710, L101.9900, L100.0100 ####[facility] [address] [place], [address] RBC (Bld) [#/Vol] 4.48 10*6/uL Low 4.6-6.2 [facility] Comment on above: Performed By: #### L 501.6710, L101.9900, L100.0100 ####[facility] [address] [place], [address] RDW SD 46.6 fl High 35.1-43.9 [facility] Comment on above: Performed By: #### L 501.6710, L101.9900, L100.0100 ####[facility] [address] [place], [address] WBC (Bld) [#/Vol] 4.6 10*3/uL Normal 4.4-11.0 [facility] Comment on above: Performed By: #### L 501.6710, L101.9900, L100.0100 ####[facility] [address] [place], [address] CRPon 04-09-2024 C-REACTIVE PROT < 2.90 Normal 0.0-3.0 [facility] Comment on above: Result Comment: C-Re active Protein (CRP) provides useful information for the diagnosis, therapy and monitoring of inflammatory processes and associated diseases. For the evaluation of Relative Risk for Cardiovascular Disease, a High Sensitivity CRP (HSCRP) should be ordered. Performed By: #### L 501.6710, L101.9900, L100.0100 ####[facility] [address] [place], [address] Emergency Department Summary on 04-09-2024 Emergency Department Summary [facility] Medical Records Department [address] [place] [address] Emergency Department Summary 04/09/24 MR#: [id number] Acct: [id number] Name: REGINO BONILLA Rep #: [id number] : 1955 68 From: Raffaele Garcia DO PCP: Dr. Regino Diaz DO Status:DEP ER Location: ED HPI History of Present Illness Chief Complaint: Other, Pain/Inj Informant: patient Onset/Context/Timing Onset: Days Context: Gradual Onset Timing: Continuous Quality: Stabbing Location: Bilateral feet, right worse than left Worsened by: Nothing Relieved by: Bike riding Narrative Narrative: Patient presents with bilateral foot pain that has been getting progressively worse. Patient states it is worse on his right foot. Patient states he has a history of neuropathy. Patient states he has been taking ibuprofen and Tylenol with no relief. Patient states it does get better when he is able to ride his bike. Patient describes the pain as stabbing. Patient denies any trauma or injury. Patient does admit to some nausea. Patient also admits to a mild headache. Patient denies any fevers or chills. [facility] Medical History Wears glasses ALS (amyotrophic lateral sclerosis) Bone spur of foot Loss of hearing Anxiety Marijuana use Arthritis Syncope Heartburn Former smoker COPD (chronic obstructive pulmonary disease) CPAP (continuous positive airway pressure) dependence Leg cramps History of edema History of pain when walking Raynaud disease Neuropathy Home Medications ???Medication ???Instructions ???Recorded ???Last Taken ???Type fluticasone propionate 50 1 spray intranasal BID PRN nasal 06/07/23 Unknown History mcg/actuation nasal congestion spray,suspension multivitamin (Daily Multi-Vitamin 1 tab PO DAILY 06/07/23 09/05/23 History tablet) turmeric 100 mg-carlos 150 1 cap PO DAILY 06/07/23 09/05/23 History mg-olive 50 mg-oreg 150 mg-capryl capsule amitriptyline 10 mg tablet 30 mg PO QHS 08/20/23 Unknown History omega-3 fatty acids-fish oil 360 1 cap PO DAILY 08/20/23 09/05/23 History mg-1,200 mg capsule (Fish Oil) polyethylene glycol 3350 17 4 g PO DAILY PRN constipation 08/20/23 Unknown History gram/dose oral powder (Miralax) cetirizine 10 mg tablet 10 mg PO DAILY PRN allergy symptoms 09/23/23 Unknown History pregabalin 100 mg capsule 100 mg PO BID 09/23/23 Unknown History cephalexin 500 mg capsule 500 mg PO Q6 #40 CAPSULES 01/19/24 Unknown Rx hydrocodone-acetaminophen 5-325mg 1 tab PO Q6H PRN PRN Pain 3 days 04/09/24 Unknown Rx 5mg-325mg #10 TABLETS Allergy/AdvReac Type Severity Reaction Status Date / Time grass pollen Allergy runny nose Verified 04/09/24 09:11 Family History Father Diabetes ALYSSA (obstructive sleep apnea) Surgical History Hx of colonoscopy Hx of LASIK Hx of oral surgery Hx of right cataract extraction Hx of left cataract extraction Hx of appendectomy Social History household members: none current occupational status: retired Smoking Status: Former smoker Smokeless tobacco user: chewing tobacco alcohol intake: current alcohol intake frequency: a few times a week substance use type: does not use ROS ROS ED Constitutional Constitutional ED: Denies chills or fever(s) Eyes Eyes: Denies blurry vision or change in vision ENT ENT ED: Denies rhinorrhea or sore throat Cardiovascular Cardiovascular: Denies chest pain or palpitations Respiratory/Chest Respiratory/Chest: Denies cough or dyspnea Gastrointestinal Gastrointestinal: Reports diarrhea and nausea; Denies vomiting Genitourinary Genitourinary ED: Denies dysuria or hematuria Musculoskeletal Musculoskeletal: Reports neck pain; Denies back pain Integumentary Denies abscess or rash Neurologic Neurologic: Reports headache(s); Denies weakness Allergic/Immunologic Allergic/Immunologic ED: Denies mouth swelling or urticaria EXAM Physical Exam Const Vital Signs: 04/09/24 09:10 04/09/24 09:14 Temperature 96.4 F L Temperature Source Temporal Pulse Rate 58 L Respiratory Rate 15 Respiratory Effort Normal Respiratory Pattern Normal Blood Pressure 139/64 H Blood Pressure Mean 89 Pulse Ox 99 Oxygen Delivery Method Room Air Positive well nourished and well developed General Appearance ED: well developed and NAD HEENT Reports moist mucous membranes Neck supple and no JVD Resp normal respiratory effort and clear to auscultation bilaterally Cardio regular rate and regular rhythm GI non-tender and non-distended Palpation: soft Extremity Extremity Narrat (more content not included)... Normal [facility] Erythrocyte Sed Rateon 04-09 SED RATE 2 mm/hr Normal 0-20 [facility] Comment on above: Performed By: #### L 501.6710, L101.9900, L100.0100 #### [facility] Laboratory [address] [place], [place], [id number] MRI BRAIN W/O CONTRASTon MRI BRAIN W/O CONTRAST ORIGINAL HISTORY: Daily headache COMPARISON: No TECHNIQUE: 1. Sagittal T1-weighted images. 2. Axial T2-weighted and T2*-weighted images. 3. Axial FLAIR images. 4. Axial diffusion-weighted images with ADC map. FINDINGS: There is metallic artifact over the right parietal region. The ventricles and sulci are normal in size and configuration. There are no abnormal intra or extra-axial fluid collections. There are mild scattered punctate T2 hyperintensities in the cerebral white matter; ariza-white matter differentiation is maintained. There is no abnormal restriction of diffusion. The orbital contents are normal in appearance. There is right maxillary sinus disease. IMPRESSION: Very mild small vessel ischemic changes. Sinus disease. Interpreted by: Eliezer Zepeda MD Preliminary Report By: Eliezer Zepeda MD Electronically signed By Eliezer Zepeda MD Dictated Date: 01/27/2023 9:23:03 AM Prelim Date: 01/27/2023 9:29:10 AM Sign Date: 01/27/2023 9:29:10 AM Ordering Provider: REGINO Lambert [facility] ([place]) LABORATORYOrdered By: SYSTEM SYSTEM on 05-27-2022 Folate [Mass/Vol] 34.82 ng/mL Invalid Interpretation Code 5.38 - 24.00 ng/mL AH ADM SS LABORATORYOrdered By: Violet Thomas on 05-27-2022 HbA1c (Bld) [Mass fraction] 5.3 % Invalid Interpretation Code 4.3 - 6.4 % AO ADM SS TSH Qn 1.67 m[IU]/L Invalid Interpretation Code 0.36 - 3.74 mcIU/mL [facility] LABORATORYOrdered By: Marion Ricks on 05-27-2022 HCV Ab IA Ql Non-Reactive (05/27/22 3:06 PM) Invalid Interpretation Code Non-Reacti ve [facility] HCV Ab IA Ql Nonreactive: Samples with a value < 0.80 are considered nonreactive (negative) for antibodies to HCV.A negative test result does not exclude the possibility of exposure to or infection with HCV. HCV antibodies may be undetectable in some stages of the infection and in some clinical conditions. Invalid Interpretation Code Chemistry S Protein [Mass/Vol] 7.0 G/dL Invalid Interpretation Code 5.7 - 8.2 G/dL [facility] LABORATORYOrdered By: [employer] SYSTEM on 02-06-2022 Cobalamin (Vitamin B12) [Mass/Vol] 584 pg/mL Invalid Interpretation Code 211 - 911 pg/mL [facility] Absolute lymphocyte counton 09-29-2021 Lymphocytes Auto (Unsp spec) [#/Vol] 1.26 10*3/uL 0.83-4.51 [facility] Work Phone: Basophil percentageon 2021 Basophils/100 WBC (Bld) 0.4 % 0-1 [facility] Work Phone: Bilirubin [Mass/Vol] 0.80 mg/dL 0.20-1.00 [facility] Work Phone: Comment on above: For patients on eltr ombopag therapy, use of Dimension Elizabeth TBIL is not recommended. Chloride [Moles/Vol] 108 mmol/L 98-107 [facility] Work Phone: Eosinophils/100 WBC (Bld) 0.4 % 0-5 [facility] Work Phone: Glucose [Mass/Vol] 98 mg/dL 74-106 [facility] Work Phone: Neutrophils (Bld) [#/Vol] 5.3 10*3/uL 2.0-7.7 [facility] Work Phone: Neutrophils/100 WBC (Bld) 74.9 % 47-70 [facility] Work Phone: Potassium [Moles/Vol] 3.7 mmol/L 3.5-5.1 [facility] Work Phone: Protein [Mass/Vol] 7.0 g/dL 6.4-8.2 [facility] Work Phone: Sodium [Moles/Vol] 140 mmol/L 136-145 [facility] Work Phone: WBC (Bld) [#/Vol] 7.1 10*3/uL 4.4-11.0 [facility] Work Phone: Blood erythrocytes count (nu mber/volume)on 09-29-2021 RBC (Bld) [#/Vol] 4.66 10*6/uL 4.6-6.2 [place] [facility] Work Phone: Blood hemoglobin measurement (mass/volume)on 09-29-2021 Hemoglobin (Bld) [Mass/Vol] 15.3 g/dL 13.0-16.5 [facility] Work Phone: Blood lymphocytes/100 leukoc yteson 09-29-2021 Lymphocytes/100 WBC (Bld) 17.8 % 19-41 [facility] Work Phone: Blood monocytes/100 leukocyt eson 09-29-2021 Monocytes/100 WBC (Bld) 6.2 % 0-10 [facility] Work Phone: Blood platelet mean volumeon 09-29-2021 Platelet mean volume (Bld) [Entitic vol] 10.5 fL 6.2-12.0 [facility] Work Phone: Determination of erythrocyte mean corpuscular volume (MCV)on 09-29-2021 MCV (RBC) [Entitic vol] 92.5 fL 80-94 [facility] Work Phone: [phone] Erythrocyte sedimentation ra negro 09-29-2021 ESR (Bld) [Velocity] 10 mm/h 0-20 [facility] Work Phone: Hematocrit Auto (Bld) [Volum e fraction]on 09-29-2021 Hematocrit (Bld) [Volume fraction] 43.1 % 40-54 [facility] Work Phone: Laboratory - Chemistry and C hemistry - challengeon 09-29-2021 ALP [Catalytic activity/Vol] 75 U/L 45-117 [facility] Work Phone: ALT [Catalytic activity/Vol] 29 U/L 16-61 [facility] Work Phone: CO2 [Moles/Vol] 27.0 mmol/L 21.0-32.0 [facility] Work Phone: Globulin (S) [Mass/Vol] 3.3 g/dL 2.2-4.2 [facility] Work Phone: Urea nitrogen/Creatinine [Mass ratio] 21.2 mg/mg 10-20 [facility] Work Phone: Laboratory - Hematology and Cell countson 09-29-2021 Erythrocyte distribution width (RBC) [Entitic vol] 44.0 fL 35.1-43.9 [facility] Work Phone: Erythrocyte distribution width (RBC) [Ratio] 13.0 % 11.6-14.6 [facility] Work Phone: Immature granulocytes/100 WBC (Bld) 0.300 % 0.0-0.9 [facility] Work Phone: Comment on above: IG% - Immature Granu locytes (promyelocytes, myelocytes and metamyelocytes) > 1% indicates that a LEFT SHIFT is Present. MCH (RBC) [Entitic mass] 32.8 pg 27.0-32.0 [facility] Work Phone: Nucleated RBC/100 WBC (Bld) [Ratio] 0 % 0-5 [facility] Work Phone: MCHC Auto (RBC) [Mass/Vol]on 09-29-2021 MCHC (RBC) [Mass/Vol] 35.5 g/dL 32-36 [facility] Work Phone: No Panel Informationon 09-29 Estimated Creatinine Clearance Calc 84.85 ml/min [facility] Work Phone: Estimated GFR (MDRD) Amer 103 mL/min >60 [facility] Work Phone: Comment on above: GFR Calc Estimated GFR (MDRD) Non-Af Amer 85 mL/min >60 [facility] Work Phone: Comment on above: Non- GFR Calc Platelets bldon 09-29-2021 Platelets (Bld) [#/Vol] 212 10*3/uL 150-450 [facility] Work Phone: Serum or plasma albumin sahara urement (mass/volume)on 09-29-2021 Albumin [Mass/Vol] 3.7 g/dL 3.2-5.0 [facility] Work Phone: Serum or plasma albumin/glob ulin mass ratioon 09-29-2021 Albumin/Globulin [Mass ratio] 1.1 {ratio} 0.9-2.4 [facility] Work Phone: Serum or plasma calcium sahara urement (mass/volume)on 09-29-2021 Calcium [Mass/Vol] 9.4 mg/dL 8.5-10.1 [facility] Work Phone: Serum or plasma creatinine m easurement (mass/volume)on 09-29-2021 Creatinine [Mass/Vol] 0.94 mg/dL 0.70-1.30 [facility] Work Phone: Comment on above: The validity of the calculated GFR & GFRAA in patients over 70 years has not been determined. Clinical correlation is essential. Serum or plasma urea nitroge n measurement (mass/volume)on 09-29-2021 Urea nitrogen [Mass/Vol] 20 mg/dL 7-18 [facility] [place] Work Phone: Thin prep Papanicolaou smear with manual screeningon 09-29-2021 Thin prep Papanicolaou smear with manual screening 18 U/L 15-37 [facility] [place] Work Phone: [phone] Thin prep Papanicolaou smear with manual screening 5 5-15 [facility] [place] Work Phone: Absolute lymphocyte counton 07-16-2021 Lymphocytes Auto (Unsp spec) [#/Vol] 1.37 10*3/uL 0.83-4.51 [facility] [place] Work Phone: Basophil percentageon 2020 Bilirubin [Mass/Vol] 0.50 mg/dL 0.20-1.00 [facility] Work Phone: Comment on above: For patients on eltr ombopag therapy, use of Dimension Elizabeth TBIL is not recommended. Chloride [Moles/Vol] 109 mmol/L 98-107 [facility] Work Phone: Eosinophils/100 WBC (Bld) 2.3 % 0-5 [facility] [place] Work Phone: [phone] Glucose [Mass/Vol] 89 mg/dL 74-106 [facility] Work Phone: Comment on above: Please note revised GLUCOSE reference range effective 2017. Neutrophils (Bld) [#/Vol] 3.3 10*3/uL 2.0-7.7 [facility] [place] Work Phone: [phone] Potassium [Moles/Vol] 4.0 mmol/L 3.5-5.1 [facility] Work Phone: Protein [Mass/Vol] 7.3 g/dL 6.4-8.2 [facility] Work Phone: [phone] Sodium [Moles/Vol] 140 mmol/L 136-145 [facility] Work Phone: WBC (Bld) [#/Vol] 5.2 10*3/uL 4.4-11.0 [facility] Work Phone: Blood erythrocytes count (nu mber/volume)on 07-16-2021 RBC (Bld) [#/Vol] 4.75 10*6/uL 4.6-6.2 [facility] Work Phone: Blood hemoglobin measurement (mass/volume)on 07-16-2021 Hemoglobin (Bld) [Mass/Vol] 14.8 g/dL 13.0-16.5 [facility] [place] Work Phone: Blood lymphocytes/100 leukoc yteson 07-16-2021 Lymphocytes/100 WBC (Bld) 26.4 % 19-41 [facility] [place] Work Phone: Blood monocytes/100 leukocyt eson 07-16-2021 Monocytes/100 WBC (Bld) 7.3 % 0-10 [facility] [place] Work Phone: Blood platelet mean volumeon 07-16-2021 Platelet mean volume (Bld) [Entitic vol] 10.2 fL 6.2-12.0 [facility] [place] Work Phone: Determination of erythrocyte mean corpuscular volume (MCV)on 07-16-2021 MCV (RBC) [Entitic vol] 93.7 fL 80-94 [facility] [place] Work Phone: Hematocrit Auto (Bld) [Volum e fraction]on 07-16-2021 Hematocrit (Bld) [Volume fraction] 44.5 % 40-54 [facility] [place] Work Phone: Laboratory - Chemistry and C hemistry - challengeon 07-16-2021 ALP [Catalytic activity/Vol] 80 U/L 45-117 [facility] [place] Work Phone: ALT [Catalytic activity/Vol] 44 U/L 16-61 [facility] [place] Work Phone: CO2 [Moles/Vol] 25.0 mmol/L 21.0-32.0 [facility] [place] Work Phone: Globulin (S) [Mass/Vol] 3.6 g/dL 2.2-4.2 [facility] [place] Work Phone: Urea nitrogen/Creatinine [Mass ratio] 18.5 mg/mg 10-20 [facility] [place] Work Phone: Laboratory - Hematology and Cell countson 07-16-2021 Basophils/100 WBC (Unsp spec) 0.4 % 0-1 [facility] [place] Work Phone: Erythrocyte distribution width (RBC) [Entitic vol] 43.3 fL 35.1-43.9 [facility] [place] Work Phone: Erythrocyte distribution width (RBC) [Ratio] 12.5 % 11.6-14.6 [facility] [place] Work Phone: Immature granulocytes/100 WBC (Bld) 0.200 % 0.0-0.9 [facility] [place] Work Phone: Comment on above: IG% - Immature Granu locytes (promyelocytes, myelocytes and metamyelocytes) > 1% indicates that a LEFT SHIFT is Present. MCH (RBC) [Entitic mass] 31.2 pg 27.0-32.0 [facility] [place] Work Phone: Neutrophils/100 WBC (Bld) 63.4 % 47-70 [facility] [place] Work Phone: Nucleated RBC/100 WBC (Bld) [Ratio] 0 % 0-5 [facility] [place] Work Phone: MCHC Auto (RBC) [Mass/Vol]on 07-16-2021 MCHC (RBC) [Mass/Vol] 33.3 g/dL 32-36 [facility] Work Phone: No Panel Informationon 07-16 Estimated GFR (MDRD) Amer 123 mL/min >60 [facility] [place] Work Phone: Comment on above: GFR Calc Estimated GFR (MDRD) Non-Af Amer 101 mL/min >60 [facility] [place] Work Phone: Comment on above: Non- GFR Calc Platelets bldon 07-16-2021 Platelets (Bld) [#/Vol] 215 10*3/uL 150-450 [facility] [place] Work Phone: Serum or plasma albumin sahara urement (mass/volume)on 07-16-2021 Albumin [Mass/Vol] 3.7 g/dL 3.2-5.0 [facility] Work Phone: Serum or plasma albumin/glob ulin mass ratioon 07-16-2021 Albumin/Globulin [Mass ratio] 1.0 {ratio} 0.9-2.4 [facility] [place] Work Phone: Serum or plasma calcium sahara urement (mass/volume)on 07-16-2021 Calcium [Mass/Vol] 9.1 mg/dL 8.5-10.1 [facility] Work Phone: Serum or plasma creatinine m easurement (mass/volume)on 07-16-2021 Creatinine [Mass/Vol] 0.81 mg/dL 0.70-1.30 [facility] ster [facility] Work Phone: Comment on above: The validity of the calculated GFR & GFRAA in patients over 70 years has not been determined. Clinical correlation is essential. Serum or plasma urea nitroge n measurement (mass/volume)on 07-16-2021 Urea nitrogen [Mass/Vol] 15 mg/dL 7-18 [facility] [place] Work Phone: Thin prep Papanicolaou smear with manual screeningon 07-16-2021 Thin prep Papanicolaou smear with manual screening 24 U/L 15-37 [facility] [place] Work Phone: Thin prep Papanicolaou smear with manual screening 6 - [facility] [place] Work Phone: Whole blood hemoglobin A1c/t otal hemoglobin ratio (mass fraction)on 07-16-2021 HbA1c (Bld) [Mass fraction] 5.4 % 3.8-5.6 [facility] [place] Work Phone: Comment on above: Normal < 5.7 % Predi abetic 5.7 - 6.4 % Diabetic >or= 6.5 % Please note range changes. Vital Signs Date Time Vital Sign Value Performing Clinician Facility 01-23-2025 12:05-0400 Body height 180.[address] Regino Diaz DO Work Phone: [facility] [place] 01-23-2025 12:05-0400 Body mass index (BMI) [Ratio] 26.1 kg/m2 Dr. Regino Diaz DO Work Phone: [facility] [place] 01-23-2025 12:05-0400 Body temperature 98.3 [degF] Dr. Regino Diaz DO Work Phone: [facility] [place] 01-23-2025 12:05-0400 Body weight 85.[address] Regino Diaz DO Work Phone: [facility] [place] 01-23-2025 12:05-0400 Diastolic blood pressure 73 mm[Hg] Dr. Regino Diaz DO Work Phone: [facility] [place] 01-23-2025 12:05-0400 Heart rate 70 /min Dr. Regino Diaz DO Work Phone: [facility] [place] 01-23-2025 12:05-0400 Respiratory rate 16 /min Dr. Regino Diaz DO Work Phone: [facility] [place] 01-23-2025 12:05-0400 SaO2% (BldA) [Mass fraction] 98 % Dr. Regino Diaz DO Work Phone: [facility] [place] 01-23-2025 12:05-0400 Systolic blood pressure 129 mm[Hg] Dr. Regino Diaz DO Work Phone: [facility] [place] 01-03-2025 10:59-0400 Body temperature 97.1 [degF] Dr. Regino Diaz DO Work Phone: [facility] [place] 01-03-2025 10:59-0400 Diastolic blood pressure 68 mm[Hg] Dr. Regino Diaz DO Work Phone: [facility] [place] 01-03-2025 10:59-0400 Heart rate 58 /min Dr. Regino Diaz DO Work Phone: [facility] [place] 01-03-2025 10:59-0400 Respiratory rate 16 /min Dr. Regino Diaz DO Work Phone: [facility] [place] 01-03-2025 10:59-0400 Systolic blood pressure 118 mm[Hg] Dr. Regino Diaz DO Work Phone: [facility] [place] 12-28-2024 08:09-0400 Body height 180.[address] Regino Diaz DO Work Phone: [facility] [place] 12-28-2024 08:09-0400 Body mass index (BMI) [Ratio] 27.3 kg/m2 Dr. Regino Diaz DO Work Phone: [facility] [place] 12-28-2024 08:09-0400 Body temperature 98 [degF] Dr. Regino Diaz DO Work Phone: [facility] [place] 12-28-2024 08:09-0400 Body weight 88.[address] Regino Diaz DO Work Phone: [facility] [place] 12-28-2024 08:09-0400 Diastolic blood pressure 69 mm[Hg] Dr. Regino Diaz DO Work Phone: [facility] [place] 12-28-2024 08:09-0400 Heart rate 72 /min Dr. Regino Diaz DO Work Phone: [facility] [place] 12-28-2024 08:09-0400 Respiratory rate 16 /min Dr. Regino Diaz DO Work Phone: [facility] [place] 12-28-2024 08:09-0400 SaO2% (BldA) [Mass fraction] 98 % Dr. Regino Diaz DO Work Phone: [facility] [place] 12-28-2024 08:09-0400 Systolic blood pressure 113 mm[Hg] Dr. Regino Diaz DO Work Phone: [facility] [place] 12-27-2024 10:45-0400 Body temperature 96.2 [degF] Dr. Regino Diaz DO Work Phone: [facility] [place] 12-27-2024 10:45-0400 Diastolic blood pressure 59 mm[Hg] Dr. Regino Diaz DO Work Phone: [facility] [place] 12-27-2024 10:45-0400 Heart rate 64 /min Dr. Regino Diaz DO Work Phone: [facility] [place] 12-27-2024 10:45-0400 Respiratory rate 16 /min Dr. Regino Diaz DO Work Phone: [facility] [place] 12-27-2024 10:45-0400 Systolic blood pressure 133 mm[Hg] Dr. Regino Diaz DO Work Phone: [facility] [place] 12-13-2024 10:58-0400 Body temperature 97.2 [degF] Dr. Regino Diaz DO Work Phone: [facility] [place] 12-13-2024 10:58-0400 Diastolic blood pressure 61 mm[Hg] Dr. Regino Diaz DO Work Phone: [facility] [place] 12-13-2024 10:58-0400 Heart rate 55 /min Dr. Regino Diaz DO Work Phone: [facility] [place] 12-13-2024 10:58-0400 Respiratory rate 18 /min Dr. Regino Diaz DO Work Phone: [facility] [place] 12-13-2024 10:58-0400 Systolic blood pressure 125 mm[Hg] Dr. Regino Diaz DO Work Phone: [facility] [place] 12-05-2024 20:38-0400 Body temperature 98.7 [degF] Dr. Regino Diaz DO Work Phone: [facility] [place] 12-05-2024 20:38-0400 Diastolic blood pressure 71 mm[Hg] Dr. Regino Diaz DO Work Phone: [facility] [place] 12-05-2024 20:38-0400 Heart rate 55 /min Dr. Regino Diaz DO Work Phone: [facility] [place] 12-05-2024 20:38-0400 Respiratory rate 16 /min Dr. Regino Diaz DO Work Phone: [facility] [place] 12-05-2024 20:38-0400 SaO2% (BldA) [Mass fraction] 99 % Dr. Regino Diaz DO Work Phone: [facility] [place] 12-05-2024 20:38-0400 Systolic blood pressure 132 mm[Hg] Dr. Regino Diaz DO Work Phone: [facility] [place] 12-05-2024 18:39-0400 Body height 182.[address] Regino Diaz DO Work Phone: [facility] [place] 12-05-2024 18:39-0400 Body mass index (BMI) [Ratio] 27 kg/m2 Dr. Regino Diaz DO Work Phone: [facility] [place] 12-05-2024 18:39-0400 Body weight 90.[address] Regino Diaz DO Work Phone: [facility] [place] 11-16-2024 11:10-0400 Body temperature 97.7 [degF] Dr. Regino Diaz DO Work Phone: [facility] [place] 11-16-2024 11:10-0400 Diastolic blood pressure 60 mm[Hg] Dr. Regino Diaz DO Work Phone: [facility] [place] 11-16-2024 11:10-0400 Heart rate 57 /min Dr. Regino Diaz DO Work Phone: [facility] [place] 11-16-2024 11:10-0400 Respiratory rate 16 /min Dr. Regino Diaz DO Work Phone: [facility] [place] 11-16-2024 11:10-0400 Systolic blood pressure 128 mm[Hg] Dr. Regino Diaz DO Work Phone: [facility] [place] 10-19-2024 10:23-0400 Body temperature 96.7 [degF] Dr. Regino Diaz DO Work Phone: [facility] [place] 10-19-2024 10:23-0400 Diastolic blood pressure 73 mm[Hg] Dr. Regino Diaz DO Work Phone: [facility] [place] 10-19-2024 10:23-0400 Heart rate 62 /min Dr. Regino Diaz DO Work Phone: [facility] [place] 10-19-2024 10:23-0400 Respiratory rate 18 /min Dr. Regino Diaz DO Work Phone: [facility] [place] 10-19-2024 10:23-0400 Systolic blood pressure 137 mm[Hg] Dr. Regino Diaz DO Work Phone: [facility] [place] 10-08-2024 18:52-0400 Body height 180.[address] Regino Diaz DO Work Phone: [facility] [place] 10-08-2024 18:52-0400 Body mass index (BMI) [Ratio] 26 kg/m2 Dr. Regino Diaz DO Work Phone: [facility] [place] 10-08-2024 18:52-0400 Body temperature 98.2 [degF] Dr. Regino Diaz DO Work Phone: [facility] [place] 10-08-2024 18:52-0400 Body weight 84.[address] Regino Diaz DO Work Phone: [facility] [place] 10-08-2024 18:52-0400 Diastolic blood pressure 75 mm[Hg] Dr. Regino Diaz DO Work Phone: [facility] [place] 10-08-2024 18:52-0400 Heart rate 78 /min Dr. Regino Diaz DO Work Phone: [facility] [place] 10-08-2024 18:52-0400 Respiratory rate 15 /min Dr. Regino Diaz DO Work Phone: [facility] [place] 10-08-2024 18:52-0400 SaO2% (BldA) [Mass fraction] 100 % Dr. Regino Diaz DO Work Phone: [facility] [place] 10-08-2024 18:52-0400 Systolic blood pressure 157 mm[Hg] Dr. Regino Diaz DO Work Phone: [facility] [place] 10-02-2024 08:28-0500 Body mass index (BMI) [Ratio] 27.3 kg/m2 Dr. Regino Diaz DO Work Phone: [facility] [place] 10-02-2024 08:28-0500 Body temperature 97.4 [degF] Dr. Regino Diaz DO Work Phone: [facility] [place] 10-02-2024 08:28-0500 Body weight 88.[address] Regino Diaz DO Work Phone: [facility] [place] 10-02-2024 08:28-0500 Diastolic blood pressure 69 mm[Hg] Dr. Regino Diaz DO Work Phone: [facility] [place] 10-02-2024 08:28-0500 Heart rate 76 /min Dr. Regino Diaz DO Work Phone: [facility] [place] 10-02-2024 08:28-0500 Respiratory rate 12 /min Dr. Regino Diaz DO Work Phone: [facility] [place] 10-02-2024 08:28-0500 SaO2% (BldA) [Mass fraction] 97 % Dr. Regino Diaz DO Work Phone: [facility] [place] 10-02-2024 08:28-0500 Systolic blood pressure 102 mm[Hg] Dr. Regino Diaz DO Work Phone: [facility] [place] 08-11-2024 17:26-0500 Body temperature 97.9 [degF] Dr. Regino Diaz DO Work Phone: [facility] [place] 08-11-2024 17:26-0500 Diastolic blood pressure 84 mm[Hg] Dr. Regino Diaz DO Work Phone: [facility] [place] 08-11-2024 17:26-0500 Heart rate 77 /min Dr. Regino Diaz DO Work Phone: [facility] [place] 08-11-2024 17:26-0500 Respiratory rate 18 /min Dr. Regino Diaz DO Work Phone: [facility] [place] 08-11-2024 17:26-0500 SaO2% (BldA) [Mass fraction] 99 % Dr. Regino Diaz DO Work Phone: [facility] [place] 08-11-2024 17:26-0500 Systolic blood pressure 151 mm[Hg] Dr. Regino Diaz DO Work Phone: [facility] [place] 08-11-2024 17:02-0500 Body mass index (BMI) [Ratio] 25.5 kg/m2 Dr. Regino Diaz DO Work Phone: [facility] [place] 08-11-2024 17:02-0500 Body weight [address] Regino Diaz DO Work Phone: [facility] [place] 07-22-2024 11:48-0500 Body mass index (BMI) [Ratio] 27.6 kg/m2 Dr. Regino Diaz DO Work Phone: [facility] [place] 07-22-2024 11:48-0500 Body temperature 97 [degF] Dr. Regino Diaz DO Work Phone: [facility] [place] 07-22-2024 11:48-0500 Body weight 89.[address] Regino Diaz DO Work Phone: [facility] [place] 07-22-2024 11:48-0500 Diastolic blood pressure 77 mm[Hg] Dr. Regino Diaz DO Work Phone: [facility] [place] 07-22-2024 11:48-0500 Heart rate 71 /min Dr. Regino Diaz DO Work Phone: [facility] [place] 07-22-2024 11:48-0500 Respiratory rate 16 /min Dr. Regino Diaz DO Work Phone: [facility] [place] 07-22-2024 11:48-0500 SaO2% (BldA) [Mass fraction] 100 % Dr. Regino Diaz DO Work Phone: [facility] [place] 07-22-2024 11:48-0500 Systolic blood pressure 134 mm[Hg] Dr. Regino Diaz DO Work Phone: [facility] [place] 06-24-2024 11:32-0500 Body temperature 98.24 [degF] DR LYNDON TRACY MD [facility] 06-24-2024 11:32-0500 Diastolic Blood Pressure Non-Invasive 77 mm[Hg] DR LYNDON TRACY MD [facility] 06-24-2024 11:32-0500 Heart rate 76 /min DR LYNDON TRACY MD [facility] 06-24-2024 11:32-0500 Respiratory rate 16 /min DR LYNDON TRACY MD [facility] 06-24-2024 11:32-0500 Systolic Blood Pressure Non-Invasive 134 mm[Hg] DR LYNDON TRACY MD [facility] 06-18-2024 10:24-0500 Body mass index (BMI) [Ratio] 25.7 kg/m2 Dr. Regino Diaz DO Work Phone: [facility] [place] 06-18-2024 10:24-0500 Body temperature 98.5 [degF] Dr. Regino Diaz DO Work Phone: [facility] [place] 06-18-2024 10:24-0500 Body weight 83.[address] Regino Diaz DO Work Phone: [facility] [place] 06-18-2024 10:24-0500 Diastolic blood pressure 62 mm[Hg] Dr. Regino Diaz DO Work Phone: [facility] [place] 06-18-2024 10:24-0500 Heart rate 70 /min Dr. Regino Diaz DO Work Phone: [facility] [place] 06-18-2024 10:24-0500 Respiratory rate 18 /min Dr. Regino Diaz DO Work Phone: [facility] [place] 06-18-2024 10:24-0500 SaO2% (BldA) [Mass fraction] 100 % Dr. Regino Diaz DO Work Phone: [facility] [place] 06-18-2024 10:24-0500 Systolic blood pressure 114 mm[Hg] Dr. Regino Diaz DO Work Phone: [facility] [place] 06-13-2024 10:36-0500 Body mass index (BMI) [Ratio] 25.7 kg/m2 Dr. Regino Diaz DO Work Phone: [facility] [place] 06-13-2024 10:36-0500 Body temperature 97.2 [degF] Dr. Regino Diaz DO Work Phone: [facility] [place] 06-13-2024 10:36-0500 Diastolic blood pressure 57 mm[Hg] Dr. Regino Diaz DO Work Phone: [facility] [place] 06-13-2024 10:36-0500 Heart rate 61 /min Dr. Regino Diaz DO Work Phone: [facility] [place] 06-13-2024 10:36-0500 Respiratory rate 18 /min Dr. Regino Diaz DO Work Phone: [facility] [place] 06-13-2024 10:36-0500 Systolic blood pressure 113 mm[Hg] Dr. Regino Diaz DO Work Phone: [facility] [place] 06-02-2024 00:53-0400 Body weight 86.[address] Regino Diaz DO Work Phone: [facility] [place] 04-17-2024 15:10-0400 Blood Pressure Location MARQUITA HUMPHREYS MD [facility] 04-17-2024 15:10-0400 Blood Pressure Method MARQUITA HUMPHREYS MD [facility] 04-17-2024 15:10-0400 Diastolic Blood Pressure Non-Invasive 64 mm[Hg] MARQUITA HUMPHREYS MD [facility] 04-17-2024 15:10-0400 Heart rate 58 /min MARQUITA HUMPHREYS MD [facility] 04-17-2024 15:10-0400 Respiratory rate 20 /min MARQUITA HUMPHREYS MD [facility] 04-17-2024 15:10-0400 Systolic Blood Pressure Non-Invasive 124 mm[Hg] MARQUITA HUMPHREYS MD [facility] 04-17-2024 13:46-0400 Blood Pressure Location MARQUITA HUMPHREYS MD [facility] 04-17-2024 13:46-0400 Blood Pressure Method MARQUITA HUMPHREYS MD [facility] 04-17-2024 13:46-0400 Body temperature 98.42 [degF] MARQUITA HUMPHREYS MD [facility] 04-17-2024 13:46-0400 Body weight 92.1 kg MARQUITA HUMPHREYS MD [facility] 04-17-2024 13:46-0400 Diastolic Blood Pressure Non-Invasive 61 mm[Hg] MARQUITA HUMPHREYS MD [facility] 04-17-2024 13:46-0400 Heart rate 60 /min MARQUITA [facility]HREYS [facility] [facility]24 13:46-0400 Respiratory rate 18 /min MARQUITA HUMPHREYS MD [facility] 04-17-2024 13:46-0400 Systolic Blood Pressure Non-Invasive 118 mm[Hg] MARQUITA HUMPHREYS MD [facility] 12-15-2022 07:50-0400 Body height 182.[address] Regino Diaz Work Phone: [facility] [place] 12-15-2022 07:50-0400 Body mass index (BMI) [Ratio] 28.8 kg/m2 Dr. Regino Diaz Work Phone: [facility] [place] 12-15-2022 07:50-0400 Body temperature 97.6 [degF] Dr. Regino Diaz Work Phone: [facility] [place] 12-15-2022 07:50-0400 Body weight 96.[address] Regino Diaz Work Phone: [facility] [place] 12-15-2022 07:50-0400 Diastolic blood pressure 72 mm[Hg] Dr. Regino Diaz Work Phone: [facility] [place] 12-15-2022 07:50-0400 Heart rate 54 /min Dr. Regino Diaz Work Phone: [facility] [place] 12-15-2022 07:50-0400 Respiratory rate 16 /min Dr. Regino Diaz Work Phone: [facility] [place] 12-15-2022 07:50-0400 SaO2% (BldA) [Mass fraction] 98 % Dr. Regino Diaz Work Phone: [facility] [place] 12-15-2022 07:50-0400 Systolic blood pressure 124 mm[Hg] Dr. Regino Diaz Work Phone: [facility] [place] 11-09-2022 14:45-0400 Body height 182.88 cm [facility] 11-09-2022 14:45-0400 Body mass index (BMI) [Ratio] 30.1 kg/m2 [facility] 11-09-2022 14:45-0400 Body temperature 98 [degF] [facility] 11-09-2022 14:45-0400 Body weight 100.69 kg [facility] 11-09-2022 14:45-0400 Diastolic blood pressure 70 mm[Hg] [facility] 11-09-2022 14:45-0400 Heart rate 72 /min [facility] 11-09-2022 14:45-0400 Respiratory rate 16 /min [facility] 11-09-2022 14:45-0400 SaO2% (BldA) [Mass fraction] 95 % [facility] 11-09-2022 14:45-0400 Systolic blood pressure 136 mm[Hg] [facility] 10-22-2021 13:41-0400 Body temperature 97.8 [degF] [facility] Work Phone: 10-22-2021 13:41-0400 Diastolic blood pressure 58 mm[Hg] [facility] Work Phone: 10-22-2021 13:41-0400 Heart rate 72 /min [facility] Work Phone: 10-22-2021 13:41-0400 Respiratory rate 18 /min [facility] Work Phone: 10-22-2021 13:41-0400 Systolic blood pressure 158 mm[Hg] [facility] Work Phone: 09-29-2021 15:30-0500 Diastolic blood pressure 67 mm[Hg] [facility] Work Phone: 09-29-2021 15:30-0500 Heart rate 58 /min [facility] Work Phone: 09-29-2021 15:30-0500 Respiratory rate 16 /min [facility] Work Phone: 09-29-2021 15:30-0500 SaO2% (BldA) [Mass fraction] 97 % [facility] [place] Work Phone: 09-29-2021 15:30-0500 Systolic blood pressure 120 mm[Hg] [facility] Work Phone: 09-29-2021 13:17-0500 Body height 182.88 cm [facility] Work Phone: 09-29-2021 13:17-0500 Body mass index (BMI) [Ratio] 34.4 kg/m2 [facility] [place] Work Phone: 09-29-2021 13:17-0500 Body temperature 97.2 [degF] [facility] Work Phone: 09-29-2021 13:17-0500 Body weight 115.03 kg [facility] Work Phone: 09-24-2021 12:24-0500 Body temperature 96.9 [degF] [facility] Work Phone: 09-24-2021 12:24-0500 Diastolic blood pressure 84 mm[Hg] [facility] [place] Work Phone: 09-24-2021 12:24-0500 Heart rate 71 /min [facility] Work Phone: 09-24-2021 12:24-0500 Respiratory rate 16 /min [facility] Work Phone: 09-24-2021 12:24-0500 Systolic blood pressure 157 mm[Hg] [facility] Work Phone: 08-27-2021 09:18-0500 Body temperature 96.3 [degF] [facility] Work Phone: 08-27-2021 09:18-0500 Diastolic blood pressure 79 mm[Hg] [facility] Work Phone: 08-27-2021 09:18-0500 Heart rate 74 /min [facility] Work Phone: 08-27-2021 09:18-0500 Respiratory rate 16 /min [facility] Work Phone: 08-27-2021 09:18-0500 Systolic blood pressure 161 mm[Hg] [facility] Work Phone: 07-30-2021 08:38-0500 Body temperature 96.6 [degF] [facility] Work Phone: 07-30-2021 08:38-0500 Diastolic blood pressure 69 mm[Hg] [facility] Work Phone: 07-30-2021 08:38-0500 Heart rate 63 /min [facility] Work Phone: 07-30-2021 08:38-0500 Systolic blood pressure 162 mm[Hg] [facility] Work Phone: 07-16-2021 09:09-0500 Respiratory rate 20 /min [facility] Work Phone: Encounters Encounter Date Encounter Type Care Provider Facility Start: 02-09-2025 ambulatory Matt Adhikari Facility: [facility] Start: 01-23-2025 End: 01-23-2025 Emergency department patient visit Dr. Regino Diaz DO Work Phone: -Emergency Department Work Phone: Start: 01-03-2025 End: 01-29-[address] Matt Adhikari DPM -[facility] Work Phone: Start: 01-03-[address] Keila Adhikari DPM -[facility] Work Phone: Start: 01-03-2025 End: 01-29-[address] Regino Diaz DO Work Phone: -[facility] Start: 12-28-2024 End: 12-28-[address] Vic Lopez MD -[facility] Work Phone: Start: 12-28-2024 End: 12-28-[address] Regino Diaz DO Work Phone: [facility] Work Phone: Start: 12-27-2024 End: 12-30-[address] Regino Diaz DO Work Phone: [facility] [place] Work Phone: Start: 12-27-2024 End: 12-30-[address] Matt Adhikari DPM -[facility] Work Phone: Start: 12-27-[address] Keila Adhikari DPM -[facility] Work Phone: Start: 12-13-2024 End: 12-13-[address] Regino Diaz DO Work Phone: [facility] [place] Work Phone: Start: 12-13-2024 End: 12-13-[address] Matt Adhikari DPM -[facility] [place] Work Phone: Start: 12-13-[address] Keila VAZQUEZM -[facility] Work Phone: Start: 12-13-2024 End: 12-13-2024 ambulatory Matt Adhikari Facility:[facility] [place] Start: 12-05-2024 End: 12-05-2024 Emergency department patient visit Dr. Regino Diaz DO Work Phone: -Emergency Department Work Phone: Start: 11-16-2024 End: 11-29-2024 ambulatory Tomas French Facility:[facility] [place] Start: 11-16-2024 End: 11-29-2024 Discharged Recurring Tomas Manolo DP -[facility] Work Phone: Start: 10-19-2024 End: 10-30-2024 Discharged Recurring Tomas Manolo DPM -[facility] Work Phone: Start: 10-19-2024 End: 10-30-[address] Regino Diaz DO Work Phone: [facility] [place] Work Phone: Start: 10-08-2024 End: 10-08-2024 Emergency department patient visit Dr. Regino Diaz DO Work Phone: -Emergency Department Work Phone: Start: 10-02-2024 End: 10-02-2024 Patient encounter procedure Mary DUNLAP -[facility] Work Phone: Start: 10-02-2024 End: 10-02-2024 ambulatory Regino Diaz Facility:[facility] Start: 09-29-2024 End: 09-29-[address] Regino Diaz DO Work Phone: [facility] [place] Work Phone: Start: 09-29-2024 End: 09-29-[address] Doug Diaz DPM -[facility] Work Phone: Start: 09-29-2024 End: 09-29-2024 ambulatory Doug Diaz Facility:[facility] [place] Start: 09-12-2024 ambulatory Raffaele Matt Facility:[facility] Start: 09-12-2024 Non-patient / Non-visit Dr. Raffaele domínguez MD -[facility] Start: 09-12-2024 End: 09-12-[address] Doug Diaz DPM -Cardiovascular Services Work Phone: Start: 09-12-2024 End: 09-12-2024 ambulatory Doug Diaz Facility:[facility] [place] Start: 08-30-2024 End: 08-30-2024 ambulatory KALYAN WALKER I Facility:[facility] Start: 08-30-2024 End: 08-30-2024 Patient encounter procedure Kalyan Walker MD Work Phone: Ophthalmology Comment on above: Nyctalopia (Primary Dx); Other specified retinal disorders Start: 08-11-2024 End: 08-11-2024 Emergency department patient visit Dr. Ubaldo Pringle -Emergency Department Work Phone: Start: 08-09-2024 ambulatory Regino Diaz Facility :[facility] [place] Start: 08-08-2024 Encounter for preprocedural cardiovascular examination Oscar Salazar [facility] Start: 08-07-2024 End: 08-07-[address] Doug Diaz DPM -Laboratory Work Phone: Start: 08-07-2024 End: 08-07-2024 ambulatory Doug Diaz Facility:[facility] [place] Start: 07-22-2024 End: 07-22-2024 Emergency department patient visit Dr. Yony Gonzales DO -Emergency Department Work Phone: Start: 06-24-2024 End: 06-24-2024 Emergency department patient visit DR LYNDON TRACY MD [facility] Start: 06-18-2024 End: 06-18-2024 Emergency department patient visit Dr. Ata Torres MD -Emergency Department Work Phone: Start: 06-13-2024 End: 06-15-2024 ambulatory Kj Wei Facility:[facility] [place] Start: 06-13-2024 End: 06-15-[address] Kj Wei [facility] Work Phone: Start: 06-12-2024 End: 06-12-[address] Vic Lopez MD -[facility] Work Phone: Start: 06-12-2024 End: 06-12-2024 [facility] Facility[facility] [place] Start: 06-02-2024 End: 06-02-2024 Emergency department patient visit Doug Lopez Facility:[facility] [place] Start: 06-01-2024 End: 06-01-2024 ambulatory [facility] Facility:[facility] Start: 05-30-2024 End: 06-01-2024 ambulatory Kj Wei Facility:[facility] [place] Start: 05-10-2024 End: 05-10-2024 ambulatory REGINO BLACKMANSAFani CACERES Facility:A Start: 05-10-2024 End: 05-10-2024 Minor Procedure REGINO JOE DO [facility] Start: 04-17-2024 End: 04-17-2024 Emergency department patient visit MARQUITA HUMPHREYS MD Facility:[facility] Start: 04-09-2024 End: 04-09-2024 Emergency department patient visit Regino Blackmansay Facility:[facility] [place] Start: 12-10-2023 End: 12-11-2023 ambulatory YADY CORONEL [employer] Facility:[facility] Start: 12-10-2023 End: 12-10-2023 Patient encounter procedure YADY CORONEL [employer]PRESENT[employer] [facility] Start: 08-26-2023 ambulatory POLA AQUINO DO Facility :[facility] Start: 01-26-2023 End: 01-27-2023 ambulatory REGINO JOE Facility:[facility] Start: 01-26-2023 End: 01-26-2023 Patient encounter procedure REGINO DIAZ DO [facility] Start: 01-13-2023 End: 01-13-[address] Regino Diaz Work Phone: [facility] [place] Work Phone: Start: 01-13-2023 End: 01-13-[address] Regino Diaz Work Phone: [facility] [place]-Sleep Lab Work Phone: Start: 12-15-2022 End: 12-15-[address] Regino Diaz Work Phone: [facility]-Pulmonary Medicine [facility] Work Phone: Start: 11-09-2022 End: 11-09-2022 Emergency department patient visit [facility]-Emergency Department Start: 05-27-2022 End: 05-27-2022 Patient encounter procedure ANNA PETERS MD [facility] Start: 04-28-2022 End: 04-28-2022 Minor Procedure REGINO DIAZ DO [facility] Start: 02-06-2022 End: 02-06-2022 Patient encounter procedure REGINO DIAZ DO [facility] Start: 10-22-2021 End: 10-30-2021 Discharged Recurring [facility] Start: 10-22-2021 End: 10-22-2021 [facility] Start: 09-29-2021 End: 09-29-2021 [facility] Start: 09-24-2021 End: 09-29-2021 Discharged Recurring [facility] Start: 08-27-2021 End: 09-01-2021 [facility] Start: 07-30-2021 End: 08-01-2021 Discharged Recurring [facility] Start: 07-14-2021 [facility] Procedures Date Procedure Procedure Detail Performing Clinician Start: 01-23-2025 X-ray of chest, PA a nd lateral views Dr. Regino Diaz DO Work Phone: Start: 12-13-[address] Regino Diaz DO Work Phone: Start: 12-13-2024 Gram stain microscopy D nida Diaz DO Work Phone: Start: 12-13-2024 Microbial culture, routine Dr. Regino Diaz DO Work Phone: Start: 12-13-2024 X-ray of foot, three or more views Dr. Regino Diaz DO Work Phone: Start: 12-05-2024 CT of head without contrast Dr. Regino Diaz DO Work Phone: Start: 12-05-[address] Regino Diaz DO Work Phone: Start: 09-29-2024 MRI of lower extremity Dr. Regino Diaz DO Work Phone: Start: 08-30-2024 End: 08-30-2024 Computerized ophthalmic imaging retina Kalyan Walker MD Work Phone: Start: 08-07-[address] Regino Diaz DO Work Phone: Start: 08-07-2024 Gram stain microscopy Nuha Diaz DO Work Phone: Start: 08-07-2024 Microbial culture, routine Dr. Regino Diaz DO Work Phone: Start: 07-22-2024 X-ray of cervical spine Dr. Regino Diaz DO Work Phone: Start: 06-12-2024 MRI of brain without contrast Dr. Regino Diaz DO Work Phone: Start: 11-09-2022 Plain x-ray of pelvi s and lower extremity Start: 09-29-2021 CT of head without contrast Start: 07-09-2021 X-ray of both feet Appendectomy REGINO DIAZ [employer] Arthroplasty of knee REGINO DIAZ [employer] Comment on above: total; left Reduction rhinoplasty REGINO DIAZ [employer] Upper limb structure (body structure) REGINO DIAZ [employer] Comment on above: right arm rx with re pair Plan of Treatment Date Care Activity Detail Author Start: 2030 RSV Vaccine (1 - 1-dose 75+ series) RSV Vaccine (1 - 1-dose 75+ series) [facility] Start: 11-29-2027 Urine microalbumin profile DTaP,Tdap,Td Vaccine (2 - Td or Tdap) [facility] Start: 01-23-2025 [facility] Start: 12-05-2024 [facility] Start: 10-08-2024 [facility] Start: 08-11-2024 [facility] Start: 08-02-2024 Advance Directive Discussion Advance Directive Discussion [facility] Start: 07-22-2024 [facility] Start: 06-18-2024 [facility] Start: 04-02-2024 Covid-19 Vaccine ( season) Covid-19 Vaccine ( season) [facility] Start: 04-02-2024 Influenza vaccination Influenza Vaccine (#[facility] Start: 2010 Prostate specific antigen measurement Prostate Cancer Screening Discussion [facility] Start: 2005 Pneumococcal Vaccine: 50+ (1 of 1 - PCV) Pneumococcal Vaccine: 50+ (1 of 1 - PCV) [facility] Start: 2005 Shingrix Vaccine (1 of 2) Shingrix Vaccine (1 of 2) [facility] Start: 2000 Diabetes Screening Diabetes Screening [facility] Start: 2000 Screening for malignant neoplasm of colon [facility] Start: 1990 Lipid panel Lipid Screening [facility] Start: 1973 Anxiety Screening Anxiety Screening [facility] Start: 1973 Depression Screening Depression Screening [facility] Start: 1973 Hepatitis C screening Hepatitis C Screening [facility] Start: 1955 Abdominal aortic aneurysm screening Abdominal Aortic Aneurysm Screening [facility] C reactive protein [Mass/volume] in Serum or Plasma [facility] Creatine kinase [Enz ymatic activity/volume] in Serum or Plasma [facility] Erythrocyte sediment ation rate [facility] Heavy metals measurement [facility] Patient Education [facility] Work Phone: Patient referral [facility] Work Phone: Serum immunofixation [facility] Immunizations Immunization Date Immunization Notes Care Provider Fabian hermosillo 08-11-2021 SARS-CoV-2 (COVID-19 ) mRNA-1273 vaccine REGINO DIAZ DO [facility] 01-23-2021 SARS-CoV-2 (COVID-19 ) mRNA-1273 vaccine REGINO DIAZ DO [facility] 12-26-2020 SARS-CoV-2 (COVID-19 ) mRNA-1273 vaccine REGINO BLACKMANSAY DO [facility] Comment on above: Result Comment: 2021: [id number] 11-28-2017 tetanus toxoid, redu francoise diphtheria toxoid, and acellular pertussis vaccine, adsorbed [facility] Payers Date Payer Category Payer Self-pay [id number] 2020 Medicare MEDICARE MEDICAR E A AND B [id number] 2020-Present [phone] [place] [address] [place] [address] Medicare [id number] 2020 Unknown ANTHEM ANTHEM ME DICARE SUPPLEMENT [id number] 2020-Present [phone] [address] [place] [address] Indemnity [id number] 2020 Medicare [id number] 2020 Unknown [id number] 1955 Unknown [id number] .0.1.816764.3.579.2. 1955 Unknown [id number] .840.1.100988.3.579.2. 1955 Unknown [id number] .0.1.023305.3.579.2. 1955 Unknown [id number] .840.1.732174.3.579.2. 1955 Unknown [id number] .840.1.530491.3.579.2. 1955 Unknown [id number] .840.1.499821.3.579.2 Unknown [id number] Unknown [id number] Unknown [id number] 2.16.840.1.268984.3.579.2.462 Unknown [id number] 2.16.840.1.250454.3.579.2.462 Unknown [id number] 2.16.840.1.139445.3.579.2.462 Unknown [id number] 2.16.840.1.769342.3.579.2.462 Unknown [id number] 2.16.840.1.507311.3.579.2.462 Unknown [id number] 2.16.840.1.459869.3.579.2.462 Unknown [id number] 2.16.840.1.918828.3.579.2.462 Unknown [id number] 2.16.840.1.069524.3.579.2.462 Unknown [id number] 2..840.1.406917.3.579.2.462 Unknown [id number] 2.16.840.1.614655.3.579.2.462 Unknown [id number] 2.16.840.1.611791.3.579.2.462 Unknown [id number] 2.16.840.1.196680.3.579.2.462 Unknown [id number] 2.16.840.1.102803.3.579.2.462 Unknown [id number] 2.16.840.1.335738.3.579.2.462 Unknown [id number] 2.16.840.1.505656.3.579.2.462 Unknown [id number] 2.16.840.1.420520.3.579.2.462 Unknown [id number] 2.16.840.1.633936.3.579.2.462 Unknown [id number] 2.16.840.1.805244.3.579.2.462 Unknown [id number] 2.16.840.1.699913.3.579.2.462 Unknown [id number] 2.16.840.1.837166.3.579.2.462 Unknown [id number] 2.16.840.1.380942.3.579.2.462 Unknown [id number] 2.16.840.1.178065.3.579.2.462 Unknown [id number] 2.16.840.1.924896.3.579.2.462 Unknown [id number] 2.16.840.1.797321.3.579.2.462 Unknown [id number] 2.840.1.862541.3.579.2.462 Social History Date Type Detail Facility Start: 09-29-2021 End: 12-15-2022 Tobacco smoking status NDIS Unknown if ever smoked [facility] Start: 1955 Sex Assigned At Male A [facility] Start: 10-05-2019 End: 01-23-2025 Tobacco smoking status Never smoked tobacco (finding) [facility] Tobacco smoking status Former sm okeless tobacco user, quit more than 30 days ago [facility] Start: 08-30-2024 Tobacco smoking stat us NDIS Ex-smoker [facility] History of tobacco use Current smoker [facility] History of tobacco use Cigarette Smoker [facility] [place] History of tobacco use Passive smoker [facility] Start: 08-30-2024 Tobacco use and exposure Former smokeless tobacco user [facility] History of tobacco use Chews Tobacco [facility] Start: 08-30-2024 History of Social function [facility] Start: 08-30-2024 Tobacco use panel [facility] Start: 1955 Sex assigned at Not on file [facility] [place] Start: 10-08-2024 End: 12-05-2024 Sex Male (finding) [facility] Functional Status Date Assessment Result Facility 06-24-2024 Functional Status ID band on Bhargavmarco dozier [facility] 04-17-2024 Functional Status Independent [facility] 04-17-2024 Functional Status Awake [facility] 04-17-2024 Functional Status ID band on, Call device within reach, Bed in low position, Wheels locked, Upper/Half-Length side-rails up, Safety level maintained [facility] Mental Status Date Assessment Result Facility 01-23-2025 Cognitive function Level Of Cons ciousness Awake;Alert;Appropriate;Follow s Commands [facility] Work Phone: 12-05-2024 Cognitive function Level Of Cons ciousness Awake;Alert;Appropriate;Follow s Commands [facility] Work Phone: 08-11-2024 Cognitive function Level Of Cons ciousness Awake;Alert;Appropriate;Follow s Commands [facility] Work Phone: 06-24-2024 Mental Status Orientation Oriented x 4 [facility] 06-18-2024 Cognitive function Level Of Cons ciousness Awake;Alert;Appropriate;Follow s Commands [facility] Work Phone: 04-17-2024 Mental Status Orientation Oriented x 4 [facility] 04-17-2024 Mental Status [facility] 09-29-2021 Cognitive function Level Of Cons ciousness Awake;Alert;Appropriate;Follow s Commands [facility] Work Phone: Clinical Notes 04-17-2024 to 01-23-2025 Note Date & Type Note Facility 01-23-2025 Discharge summary [facility] 01-23-2025 Discharge summary Note Date/Time January 23, 2025 2:36pm [facility] Medical Records Department [address] [place] [address] Emergency Department Summary 01/23/25 MR#: [id number] Acct: [id number] Name: REGINO BONILLA Rep #:[id number] : 1955 69 From: Yony Gonzales DO PCP: Dr. Regino Diaz DO Status:REG ER Location: ED HPI History of Present Illness Chief Complaint: Cold Sx Narrative Narrative: Patient is a 69-year-old male with past medical history anxiety, COPD, Raynaud'sdisease, neuropathy who presents to the emergency department with concern for a sinus infection. Patient states that he became ill about 5 days ago and states that he tried to call his primary care doctor but they did not answer therefore he came to the emergency department to be evaluated today. Patient denies any recent sick contacts. He states that he is coughing up a bunch of sputum but denies any shortness of breath. He states that he feels like he is getting better at this point in time [facility] Medical History Wears glasses Bone spur of foot Loss of hearing Anxiety Marijuana use Arthritis Syncope Heartburn Former smoker COPD (chronic obstructive pulmonary disease) CPAP (continuous positive airway pressure) dependence Leg cramps History of edema History of pain when walking Raynaud disease Neuropathy Home Medications ?Medication ?Instructions ?Recorded ?Last Taken ?Type multivitamin (Daily Multi-Vitamin 1 tab PO DAILY 06/0709/05/23 History tablet) turmeric 100 mg-carlos 150 1 cap PO DAILY 06/07/2311/23 History mg-olive 50 mg-oreg 150 mg-capryl capsule omega-3 fatty acids-fish oil 360 1 cap PO DAILY 09/05/23 History mg-1,200 mg capsule (Fish Oil) polyethylene glycol 3350 17 4 g PO DAILY PRN constipat ion 08/20/23 Unknown History gram/dose oral powder (Miralax) gabapentin 400 mg capsule 400 mg PO DAILY 05/23/24 Unk nown History fluticasone propionate 50 1 spray intranasal BID nasal 06/18/24 Unknown Rx mcg/actuation nasal congestion #16 grams spray,suspension Allergy/AdvReac Type Severity Reaction Status Date / Time grass pollen Allergy runny nose Verified 01/23/25 12:06 Family History Father Diabetes ALYSSA (obstructive sleep apnea) Surgical History Hx of colonoscopy Hx of LASIK Hx of oral surgery Hx of right cataract extraction Hx of left cataract extraction Hx of appendectomy Social History household members: none current occupational status: retired Smoking Status: Never smoker second hand exposure: No alcohol intake: current alcohol intake frequency: a few times a week details: stopped drinking one year ago substance use type: does not use what type of physical activity do you participate in: walking and bicycling anam/voodoo: Holiness ROS ROS ED ROS Narrative Constitutional: Denies any fevers, chills Cardiovascular: Denies chest pain Respiratory: Complains of cough denies shortness of breath Abdomen: Denies nausea vomit diarrhea Musculoskeletal: Denies back pain Skin: Denies rashes or lesions EXAM Physical Exam Narrative Exam Narrative: General: Patient was lying in bed rest comfortably did not appear to be in acutedistress Head: Atraumatic, normocephalic Eyes: PERRL bilaterally, EOMI bilateral, no conjunctival injection noted Neck: Soft, supple, trachea midline Cardiovascular: Regular rhythm Respiratory: Clear to auscultation bilaterally no rales rhonchi or wheezes noted Abdomen: Soft, nondistended, no tenderness to palpation Extremities: +5/5 strength noted in the bilateral upper and lower extremities Neurological: Patient following commands and that he was at [facility] is 2024 Skin: Warm, dry, intact no rashes or lesions noted Const Vital Signs: 01/23/25 12:05 01/23/25 12:14 Temperature 98.3 F Temperature Source Oral Pulse Rate 70 Respiratory Rate 16 Respiratory Effort Normal Non-Labored Respiratory Pattern Normal Blood Pressure 129/73 H Blood Pressure Mean 91 Pulse Ox 98 Oxygen Delivery Method Room Air MDM MDM MDM Narrative Medical decision making narrative: Patient is a 69-year-old male who presented to the emergency department with concern for a sinus infection. On the differential diagnose includes but not limited to viral sinusitis, pneumonia, upper respiratory tract infection secondary to viral etiology. Once workup is obtained reviewed he will be reevaluated. Patient chest x-ray reviewed by myself and by radiology showed widening the right paratracheal region suggestive of possible adenopathy gave a hard copy of this for the patient to show his primary care physician for them to follow-up onthis. Patient ambulated well in the emergency department and had no evidence hypoxia or tachycardia I discussed with the patient this is likely viral in etiology as he is only on day 3 of symptoms. He was advised to return with worsening symptoms or concerns. He is agreeable this plan all question concerns answered he is discharged home in stable condition. Radiography Diagnostic Testing: Clinical Impression(s) from Imaging Studies Chest X-Ray 01/23/25 13:14 IMPRESSION: Widening of the right paratracheal region suggestive of possible adenopathy. Clinical correlation recommended. Reading Location: [facility] Discharge Plan Triage Chief Complaint: Cold Sx ED Provider: Yony Gonzales Dx/Rx/DC Orders Clinical Impression: Cough Prescriptions: No Action omega-3 fatty acids-fish oil [Fish Oil] 360-1,200 mg capsule 1 cap PO DAILY polyethylene glycol 3350 [Miralax] 17 gram/dose powder 4 g PO DAILY PRN (Reason: constipation) multivitamin [Daily Multi-Vitamin] Tablet 1 tab PO DAILY tshwubfx-hnno-myhsl-oreg-capry 100 mg-150 mg- 50 mg-150 mg capsule 1 cap PO DAILY fluticasone propionate 50 mcg/actuation spray,suspension 1 spray intranasal BID Qty: 16 0RF Rx Instructions: administer into each nostril gabapentin 400 mg capsule 400 mg PO DAILY Primary Care Provider: Regino Diaz Referrals: Regino Diaz DO [Primary Care Provider] - Activity Restrictions/Additional Instructions: Follow-up with your doctor in the outpatient setting. Your chest x-ray did not show any evidence of pneumonia. Showed the chest x-ray results that you provided here in the emergency department to your primary care for doctor to follow-up on the suggested adenopathy that they saw on your chest x-ray. Returnwith worsening symptoms or concerns Print Language: Sudanese Disposition Disposition: Home, Self Care What to do if you have Problems For any increased pain, shortness of breath, bleeding, nausea or vomiting, chestpain, or any unexpected problems, contact your Primary Care Provider. Call [facility] ([phone]) or report to the closest Emergency Room. Call 911 if necessary. 01/23/25 1436 <Electronically signed by Yony Gonzales DO> Cosigner Signature (if applicable): CC: Dr. Regino Diaz DO ~ Signed [facility] Work Phone: [phone]) 735-889506-24-2025 Radiology Diagnostic study note [facility] Imaging Services [address] [place] [address] Chest PA and Lateral MR#: [id number] Acct: [id number] Name: REGINO BONILLA Rep #: [id number] : 1955 M 69 From: Darren Brantley MD PCP: Dr. Regino Diaz DO Status: REG ER Study:Chest PA and Lateral Date of Exam: 01/23/25 Exam# [id number] Ordering Dr: Nadeen Gonzales DO PROCEDURE: CHEST PA AND LATERAL 01/23/2025 REASON FOR EXAM: COUGH TECHNIQUE: CHEST PA AND LATERAL COMPARISON: None FINDINGS: Hardware: None Heart: Heart is not enlarged Mediastinum: Widening of the right paratracheal region suggestive of possible adenopathy. Lungs: Hyperinflation. No acute infiltrate is seen. Bones: Degenerative changes are identified within the thoracic spine. RAD/Chest PA and Lateral IMPRESSION: Widening of the right paratracheal region suggestive of possible adenopathy. Clinical correlation recommended. Reading Location: [id number] CC: Dr. Regino Diaz DO; Dr. Yony Gonzales DO ~ [employer] Analyst: Signed [facility]06-04-2025 Progress note Author Matt Adhikari [facility] Note Date/Time January 03, 2025 11:59 am [facility] [address] [place] [address] Progress Note - Wound Care 01/03/25 1156 MR#: [id number] Acct: [id number] Name: REGINO BONILLA Rep #:[id number] : 1955 69 From: Matt CONRAD PCP: Dr. Regino Diaz DO Status:REG RCR Location: History of Present Illness Date of Service: 01/03/25 Chief Complaint: Left hallux ulceration History of Wound: Patient is a 69-year-old male who was referred to the wound care center for concern of a full-thickness wound to the lateral aspect of his right foot. Patient was seen at the wound care center and treated by Dr. Wei and healed. He did follow back up with Dr. French who treated his full-thickness wounds with offloading pads with some relief however there has been new breakdown of the skin to the outside of the left foot at the level of the styloid process fifth metatarsal. Treatment has been with self with triple antibiotic and Band-Aid. He is concerned for infection. Denies trauma. Deniesconstitutional symptoms. No other pedal complaints at this time. Progress of Wound: Healed full-thickness wound right foot Subjective Subjective Mr. Bonilla is a 69-year-old male presenting to clinic today for evaluation of full-thickness wound to the styloid process of the right foot. Patient has purchased a shoe stretcher on [place] and using it as discussed. He admits greatimprovement to pain to the bilateral lower extremity especially the right foot. His wound is healed. He is using a Band-Aid for protection. He denies any trauma and drainage or strikethrough to the area. Denies constitutional symptoms. No other pedal complaints at this time. Objective Data Objective Data Vital Signs: Vital Signs Temp Pulse Resp BP O2 Del Method 97.1 F L 58 L 16 118/68 Room Air 01/03/25 10:59 01/03/25 10:59 01/03/25 10:59 01/03/25 10:59 01/03/25 10:59 Oxygen Delivery Method Room Air Lab / Micro Data Micro: Microbiology 12/13/24 11:30 Ulcer, Decubitus - Right Foot Gram Stain - Final 12/13/24 11:30 Ulcer, Decubitus - Right Foot Wound Culture - Final Staphylococcus lugdunensis Stenotrophomonas maltophilia 12/13/24 11:30 Ulcer, Decubitus - Right Foot Anaerobic Culture - Final Anaerobic cocci Physical Exam Narrative Vascular: DP and PT pulse are palpable to the bilateral extremity. CFT is brisk. Skin temperature is warm to warm from proximal ankles to distal digits bilateral. Nonpitting edema appreciated to the right foot. Neurological: Light touch intact. Protective sensation is intact. Patient response to painful stimuli. Dermatological: Full-thickness wound to the styloid process of the right foot has now healed. There is evidence of callus tissue with no pain on palpation. Musculoskeletal: No pain to palpation to the heel full-thickness wound to the styloid process of the right foot. No pain with calf pressure. Const alert, oriented x3 and no apparent distress General Appearance: cooperative HEENT normocephalic Eyes General Eye: normal appearance of both eyes Neck General: normal visual inspection Lymph Lymphatic: no lymphadenopathy noted and no lymphedema noted Resp normal respiratory effort Cardio regular rate and regular rhythm Extremity no calf tenderness Extremity Narrative: Left lower extremity: Vascular: DP and PT pulses weakly palpable. CFT less than 5 seconds to digits. Normal temperature gradient. Hair growth is diminished to digits. Neurologic: There is decreased protective sensation to the foot with 5.07g [place] monofilament. Musculoskeletal: Muscle strength 5 of 5 age-appropriate. There is decreased range of motion of the ankle joint dorsiflexion with the knee extended without pain or crepitus. There is prominent styloid process/base of fifth metatarsal noted. Does have tenderness to palpation. There is hyperkeratosis about the site secondary to pressure. Decreased range of motion of the first metatarsophalangeal joint dorsiflexion without pain or crepitus with foot unloaded and further reduction of motion with foot loaded consistent with a functional hallux limitus. Normal range of motion of the interphalangeal joint. Dermatologic: Skin does appear healthy with normal turgor. Does have hyperkeratosis about the base of the fifth metatarsal as stated above. There isalso improving hyperkeratosis with subdermal hemorrhaging at the plantar aspect of the interphalangeal joint secondary to his hallux limitus. No signs of infection. Right lower extremity: Vascular: DP and PT pulses weakly palpable. CFT less than 5 seconds to digits. Normal temperature gradient. Hair growth is diminished to digits. Neurologic: There is decreased protective sensation to the foot with 5.07g [place] monofilament. Musculoskeletal: Muscle strength 5 of 5 age-appropriate. There is decreased range of motion of the ankle joint dorsiflexion with the knee extended without pain or crepitus. There is prominent styloid process/base of fifth metatarsal noted. Does have tenderness to palpation. There is hyperkeratosis about the site secondary to pressure. Dermatologic: Skin does appear healthy with normal turgor. Does have hyperkeratosis about the base of the fifth metatarsal as stated above. Skin no rashes or lesions noted and skin turgor normal Neuro moves all extremities Debridement Note Debridement Note Post-Debridement Measurements and Additional Note: Post-Debridement Measurements/Treatment DON - Nurse 1 - General Ulcer Assessment Start: 01/03/25 10:59 Freq: Status: Active Protocol: MATTHEW Activity Type Activity Date Activity User E-sign Co-sign Detail Recorded Client Recorded Date Recorded By Document 01/03/25 10:59 [id number] [id number] 01/03/25 11:04 01/03/25 10:59 WC - Today's Visit Information Type of service Follow-up Visit (Physician/[employer] ) Arrival Mode Ambulatory Patient Identification Verified (Name & Yes ) Vital Signs Temperature (97.8 F-99.1 F) 97.1 F L Temperature Source Temporal Pulse Rate (60-100) 58 L Pulse Location Monitor Respiratory Rate (12-18) 16 Respiratory rate source Observation Oxygen Delivery Method Room Air Blood Pressure (90/60-120/80) 118/68 Blood Pressure Mean (mm Hg) 84 Source Monitor Position Semi-Fowlers Blood Pressure Location Left Arm History Since Last Visit- (Skip if this is Patient's initial visit) Have you changed medications since your No last visit? Any new allergies or adverse reactions No Had a fall/change in ADL's that may No increase risk of falls Signs or symptoms of abuse and/or No neglect since last visit Have you been in the hospital since your No last visit? Has dressing in place as prescribed Yes Has compression in place as prescribed Yes Has offloadiing in place as prescribed N/A Experienced any changes in pain level or No management Left Footwear Regular Shoe Right Footwear Regular Shoe Pain Scale: 0-10 Numeric Is Patient Pain Free? Yes - Nurse 1 - General Ulcer Measurement Start: 01/03/25 10:59 Freq: Status: Active Protocol: Activity Type Activity Date Activity User E-sign Co-sign Detail Recorded Client Recorded Date Recorded By Document 01/03/25 10:59 [id number] 01/03/25 11:04 01/03/25 10:59 Wound Center Nurse 1 #8 Right Lateral Foot -Current Size (cm) - Length 0.1 -Current Size (cm) - Width 0.1 -Current Size (cm) - Depth 0 -Total Square Cm 0.01 -Date of Last Picture (Recall this 01/03/25 field) -Exudate Amt None Present -Wound Margin Indistinct, Non -Visible -Texture (Rocio-wound Skin Appearance) Assessed -Moisture (Rocio-wound Skin Appearance) Assessed -Color (Rocio-wound Skin Appearance) Assessed -Temperature (Rocio-wound Skin No Abnormality Appearance) (Pt Warm) -Tenderness on Palpation (Rocio-wound No Skin Appearance) -Ulcer Cleansing Rinsed/ Irrigated with Saline -Foul Odor after Cleansing No -Anesthetic Used 5% Lidocaine Gel - Nurse 2 - General Ulcer CM Notes Start: 01/03/25 10:59 Freq: Status: Active Protocol: Activity Type Activity Date Activity User E-sign Co-sign Detail Recorded Client Recorded Date Recorded By Document 01/03/25 11:18 [id number] 01/03/25 11:19 01/03/25 11:18 Wound Center Nurse 2 -Correct Patient Yes -Correct Side, Site, Position No -Correct Procedure No -Procedure Performed No -Post Debridement (cm) - Length 0 -Post Debridement (cm) - Width 0 -Post Debridement (cm) - Depth 0 -Total Square (Post) (cm) 0 -Area of Debridement (cm) - Length 0 -Area of Debridement (cm) - Width 0 -Total Square (Area) (cm) 0 -Wound/Ulcer Outcome Healed- Epithelialized Pain Scale: 0-10 Numeric Is Patient Pain Free? Yes - Nurse 3 - General Ulcer D/C NN Start: 01/03/25 10:59 Freq: Status: Active Protocol: Activity Type Activity Date Activity User E-sign Co-sign Detail Recorded Client Recorded Date Recorded By Document 01/03/25 11:20 [id number] 01/03/25 11:20 01/03/25 11:20 Is Patient Pain Free? Yes - Visit Discharge Discharge Condition Stable Ambulatory Status Ambulatory Transportation Private Auto Medication Reconcilliation completed & Yes provided to patient/care provider Clinical Summary of Care Provided Yes Assessment/Plan Assessment/Plan (1) Non-pressure chronic ulcer of other part of right foot with fat layer exposed: CODE(S): L97.512 - Non-pressure chronic ulcer of other part of right foot with fat layer exposed PLAN: Patient was examined and evaluated. All findings were discussed with the patient. All questions were answered to the patient's satisfaction. After physical examination the patient's full-thickness wound to the lateral right foot at the level the styloid process is now healed. Educated the patientcontinue to use the shoe stretcher daily which he was understanding of. He feels that the screw stretcher has really helped allow him to be weightbearing as tolerated and have no pain. He is grateful for not having to go to the operating room for procedure and will continue to follow the instructions once discharged today from the wound care center. I educated the patient if he has any issues she is to follow-up with me in private office for further evaluation and treatment. He was grateful for his care and left the wound care center pleased with his treatment. 01/03/25 1159 <Electronically signed by Matt Adhikari DPM> Cosigner Signature (if applicable): CC: ~ Signed [facility] Work Phone: 1(954) 139-749806-04-2025 Progress note [facility] [address] [place] [address] Progress Note - Wound Care 01/03/25 1156 MR#: [id number] Acct: [id number] Name: REGINO BONILLA Rep #:[id number] : 1955 69 From: Matt CONRAD PCP: Dr. Regino Diaz, DO Status:REG RCR Location: History of Present Illness Date of Service: 01/03/25 Chief Complaint: Left hallux ulceration History of Wound: Patient is a 69-year-old male who was referred to the wound care center for concern of a full-thickness wound to the lateral aspect of his right foot. Patient was seen at the wound care center and treated by Dr. Wei and healed. He did follow back up with Dr. French who treated his full- thickness wounds with offloading pads with some relief however there has been new breakdown of the skin to the outside of the left foot at the level of the styloid process fifth metatarsal. Treatment has been with self with triple antibiotic and Band-Aid. He is concerned for infection. Denies trauma. Deniesconstitutional symptoms. No other pedal complaints at this time. Progress of Wound: Healed full-thickness wound right foot Subjective Subjective Mr. Bonilla is a 69-year-old male presenting to clinic today for evaluation of full-thickness wound to the styloid process of the right foot. Patient has purchased a shoe stretcher on [place] and using it as discussed. He admits greatimprovement to pain to the bilateral lower extremity especially the right foot. His wound is healed. He is using a Band-Aid for protection. He denies any trauma and drainage or strikethrough to the area. Denies constitutional symptoms. No other pedal complaints at this time. Objective Data Objective Data Vital Signs: Vital Signs Temp Pulse Resp BP O2 Del Method 97.1 F L 58 L 16 118/68 Room Air 01/03/25 10:59 01/03/25 10:59 01/03/25 10:59 01/03/25 10:59 01/03/25 10:59 Oxygen Delivery Method Room Air Lab / Micro Data Micro: Microbiology 12/13/24 11:30 Ulcer, Decubitus - Right Foot Gram Stain - Final 12/13/24 11:30 Ulcer, Decubitus - Right Foot Wound Culture - Final Staphylococcus lugdunensis Stenotrophomonas maltophilia 12/13/24 11:30 Ulcer, Decubitus - Right Foot Anaerobic Culture - Final Anaerobic cocci Physical Exam Narrative Vascular: DP and PT pulse are palpable to the bilateral extremity. CFT is brisk. Skin temperature is warm to warm from proximal ankles to distal digits bilateral. Nonpitting edema appreciated to the right foot. Neurological: Light touch intact. Protective sensation is intact. Patient response to painful stimuli. Dermatological: Full-thickness wound to the styloid process of the right foot has now healed. Thereis evidence of callus tissue with no pain on palpation. Musculoskeletal: No pain to palpation to the heel full-thickness wound to the styloid process of the right foot. No pain with calf pressure. Const alert, oriented x3 and no apparent distress General Appearance: cooperative HEENT normocephalic Eyes General Eye: normal appearance of both eyes Neck General: normal visual inspection Lymph Lymphatic: no lymphadenopathy noted and no lymphedema noted Resp normal respiratory effort Cardio regular rate and regular rhythm Extremity no calf tenderness Extremity Narrative: Left lower extremity: Vascular: DP and PT pulses weakly palpable. CFT less than 5 seconds to digits. Normal temperature gradient. Hair growth is diminished to digits. Neurologic: There is decreased protective sensation to the foot with 5.07g [place] monofilament. Musculoskeletal: Muscle strength 5 of 5 age-appropriate. There is decreased range of motion of the ankle joint dorsiflexion with the knee extended without pain or crepitus. There is prominent styloidprocess/base of fifth metatarsal noted. Does have tenderness to palpation. There is hyperkeratosis about the site secondary to pressure. Decreased range of motion of the first metatarsophalangeal joint dorsiflexion without pain or crepitus with foot unloaded and further reduction of motion with foot loaded consistent with a functional hallux limitus. Normal range of motion of the interphalangeal joint. Dermatologic: Skin does appear healthy with normal turgor. Does have hyperkeratosis about the base of the fifth metatarsal as stated above. There isalso improving hyperkeratosis with subdermal hemorrhaging at the plantar aspect of the interphalangeal joint secondary to his hallux limitus. No signs of infection. Right lower extremity: Vascular: DP and PT pulses weakly palpable. CFT less than 5 seconds to digits. Normal temperature gradient. Hair growth is diminished to digits. Neurologic: There is decreased protective sensation to the foot with 5.07g [place] monofilament. Musculoskeletal: Muscle strength 5 of 5 age-appropriate. There is decreased range of motion of the ankle joint dorsiflexion with the knee extended without pain or crepitus. There is prominent styloidprocess/base of fifth metatarsal noted. Does have tenderness to palpation. There is hyperkeratosis about the site secondary to pressure. Dermatologic: Skin does appear healthy with normal turgor. Does have hyperkeratosis about the base of the fifth metatarsal as stated above. Skin no rashes or lesions noted and skin turgor normal Neuro moves all extremities Debridement Note Debridement Note Post-Debridement Measurements and Additional Note: Post-Debridement Measurements/Treatment - Nurse 1 - General Ulcer Assessment Start: 01/03/25 10:59 Freq: Status: Active Protocol: DON.MICHELLE Activity Type Activity Date Activity User E-sign Co-sign Detail Recorded Client Recorded Date Recorded By Document 01/03/25 10:59 [id number] 01/03/25 11:04 01/03/25 10:59 - Today's Visit Information Type of service Follow-up Visit (Physician/MORTGAGE LOAN CLOSER ) Arrival Mode Ambulatory Patient Identification Verified (Name & Yes ) Vital Signs Temperature (97.8 F-99.1 F) 97.1 F L Temperature Source Temporal Pulse Rate (60-100) 58 L Pulse Location Monitor Respiratory Rate (12-18) 16 Respiratory rate source Observation Oxygen Delivery Method Room Air Blood Pressure (90/60-120/80) 118/68 Blood Pressure Mean (mm Hg) 84 Source Monitor Position Semi-Fowlers Blood Pressure Location Left Arm History Since Last Visit- (Skip if this is Patient's initial visit) Have you changed medications since your No last visit? Any new allergies or adverse reactions No Had a fall/change in ADL's that may No increase risk of falls Signs or symptoms of abuse and/or No neglect since last visit Have you been in the hospital since your No last visit? Has dressing in place as prescribed Yes Has compression in place as prescribed Yes Has offloadiing in place as prescribed N/A Experienced any changes in pain level or No management Left Footwear Regular Shoe Right Footwear Regular Shoe Pain Scale: 0-10 Numeric Is Patient Pain Free? Yes - Nurse 1 - General Ulcer Measurement Start: 01/03/25 10:59 Freq: Status: Active Protocol: Activity Type Activity Date Activity User E-sign Co-sign Detail Recorded Client Recorded Date Recorded By Document 01/03/25 10:59 BRITTON [id number] 01/03/25 11:04 01/03/25 10:59 Wound Center Nurse 1 #8 Right Lateral Foot -Current Size (cm) - Length 0.1 -Current Size (cm) - Width 0.1 -Current Size (cm) - Depth 0 -Total Square Cm 0.01 -Date of Last Picture (Recall this 01/03/25 field) -Exudate Amt None Present -Wound Margin Indistinct, Non -Visible -Texture (Rocio-wound Skin Appearance) Assessed -Moisture (Rocio-wound Skin Appearance) Assessed -Color (Rocio-wound Skin Appearance) Assessed -Temperature (Rocio-wound Skin No Abnormality Appearance) (Pt Warm) -Tenderness on Palpation (Rocio-wound No Skin Appearance) -Ulcer Cleansing Rinsed/ Irrigated with Saline -Foul Odor after Cleansing No -Anesthetic Used 5% Lidocaine Gel - Nurse 2 - General Ulcer CM Notes Start: 01/03/25 10:59 Freq: Status: Active Protocol: Activity Type Activity Date Activity User E-sign Co-sign Detail Recorded Client Recorded Date Recorded By Document 01/03/25 11:18 PATRICIA [id number] 01/03/25 11:19 PATRICIA 01/03/25 11:18 Wound Center Nurse 2 -Correct Patient Yes -Correct Side, Site, Position No -Correct Procedure No -Procedure Performed No -Post Debridement (cm) - Length 0 -Post Debridement (cm) - Width 0 -Post Debridement (cm) - Depth 0 -Total Square (Post) (cm) 0 -Area of Debridement (cm) - Length 0 -Area of Debridement (cm) - Width 0 -Total Square (Area) (cm) 0 -Wound/Ulcer Outcome Healed- Epithelialized Pain Scale: 0-10 Numeric Is Patient Pain Free? Yes WC - Nurse 3 - General Ulcer D/C NN Start: 01/03/25 10:59 Freq: Status: Active Protocol: Activity Type Activity Date Activity User E-sign Co-sign Detail Recorded Client Recorded Date Recorded By Document 01/03/25 11:20 [id number] 01/03/25 11:20 01/03/25 11:20 Is Patient Pain Free? Yes WC - Visit Discharge Discharge Condition Stable Ambulatory Status Ambulatory Transportation Private Auto Medication Reconcilliation completed & Yes provided to patient/care provider Clinical Summary of Care Provided Yes Assessment/Plan Assessment/Plan (1) Non-pressure chronic ulcer of other part of right foot with fat layer exposed: CODE(S): L97.512 - Non-pressure chronic ulcer of other part of right foot with fat layer exposed PLAN: Patient was examined and evaluated. All findings were discussed with the patient. All questions were answered to the patient's satisfaction. After physical examination the patient's full-thickness wound to the lateral right foot at the level the styloid process is now healed. Educated the patientcontinue to use the shoe stretcher daily which he was understanding of. He feels that the screw stretcher has really helped allow him to be weig htbearing as tolerated and have no pain. He is grateful for not having to go to the operating room for procedure and will continue to follow the instructions once discharged today from the wound carecenter. I educated the patient if he has any issues she is to follow-up with me in private office for further evaluation and treatment. He was grateful for his care and left the wound care center pleased with his treatment. 01/03/25 1159 Cosigner Signature (if applicable): CC: ~ Signed [facility] [place]05-28-2025 Progress note Author Matt Adhikari [facility] [place] Note Date/Time December 27, 2024 6:36p m [facility] [address] [place] [address] Progress Note - Wound Care 12/27/24 1833 MR#: [id number] Acct: [id number] Name: REGINO BONILLA Rep #:[id number] : 1955 69 From: Matt CONRAD PCP: Dr. Regino Diaz, DO Status:REG RCR Location: History of Present Illness Date of Service: 12/27/24 Chief Complaint: Left hallux ulceration History of Wound: Patient is a 69-year-old male who was referred to the wound care center for concern of a full-thickness wound to the lateral aspect of his right foot. Patient was seen at the wound care center and treated by Dr. Wei and healed. He did follow back up with Dr. French who treated his full-thickness wounds with offloading pads with some relief however there has been new breakdown of the skin to the outside of the left foot at the level of the styloid process fifth metatarsal. Treatment has been with self with triple antibiotic and Band-Aid. He is concerned for infection. Denies trauma. Deniesconstitutional symptoms. No other pedal complaints at this time. Progress of Wound: Stable full-thickness wound lateral right foot. No sign of infection. Subjective Subjective Patient is a 69-year-old male presenting to wound care center today for follow- up evaluation of full-thickness wound to the lateral aspect of the right foot. Patient presents today with his multiple orthotics. He is taking his antibioticas prescribed. He admits pain is improved. He admits to little drainage to thebandage. Denies trauma. Denies constitutional symptoms. No other pedal complaints at this time. Objective Data Objective Data Vital Signs: Vital Signs Temp Pulse Resp BP O2 Del Method 96.2 F L 64 16 133/59 H Room Air 12/27/24 10:45 12/27/24 10:45 12/27/24 10:45 12/27/24 10:45 12/27/24 10:45 Oxygen Delivery Method Room Air Lab / Micro Data Micro: Microbiology 12/13/24 11:30 Ulcer, Decubitus - Right Foot Gram Stain - Final 12/13/24 11:30 Ulcer, Decubitus - Right Foot Wound Culture - Final Staphylococcus lugdunensis Stenotrophomonas maltophilia 12/13/24 11:30 Ulcer, Decubitus - Right Foot Anaerobic Culture - Final Anaerobic cocci Physical Exam Narrative Vascular: DP and PT pulse are palpable to the bilateral extremity. CFT is brisk. Skin temperature is warm to warm from proximal ankles to distal digits bilateral. Nonpitting edema appreciated to the right foot. Neurological: Light touch intact. Protective sensation is intact. Patient response to painful stimuli. Dermatological: Full-thickness wound to the lateral aspect of the right foot at the level the styloid process. Full-thickness wound measures 0.2 x 0.2 x 0.1 cm. Wound base is granular. Hyperkeratotic periwound is appreciated. No SOI. Excisional debridement down to and including subcutaneous tissue with a #15 blade and sterile nail nipper to the styloid process of the right foot this was done without incident. Predebridement measurement was callus. Postdebridement measurement is 0.2 x 0.2 x 0.1 cm. Musculoskeletal: No pain on palpation to the full-thickness right foot. No painwith calf pressure. Const alert, oriented x3 and no apparent distress General Appearance: cooperative HEENT normocephalic Eyes General Eye: normal appearance of both eyes Neck General: normal visual inspection Lymph Lymphatic: no lymphadenopathy noted and no lymphedema noted Resp normal respiratory effort Cardio regular rate and regular rhythm Extremity no calf tenderness Extremity Narrative: Left lower extremity: Vascular: DP and PT pulses weakly palpable. CFT less than 5 seconds to digits. Normal temperature gradient. Hair growth is diminished to digits. Neurologic: There is decreased protective sensation to the foot with 5.07g [place] monofilament. Musculoskeletal: Muscle strength 5 of 5 age-appropriate. There is decreased range of motion of the ankle joint dorsiflexion with the knee extended without pain or crepitus. There is prominent styloid process/base of fifth metatarsal noted. Does have tenderness to palpation. There is hyperkeratosis about the site secondary to pressure. Decreased range of motion of the first metatarsophalangeal joint dorsiflexion without pain or crepitus with foot unloaded and further reduction of motion with foot loaded consistent with a functional hallux limitus. Normal range of motion of the interphalangeal joint. Dermatologic: Skin does appear healthy with normal turgor. Does have hyperkeratosis about the base of the fifth metatarsal as stated above. There isalso improving hyperkeratosis with subdermal hemorrhaging at the plantar aspect of the interphalangeal joint secondary to his hallux limitus. No signs of infection. Right lower extremity: Vascular: DP and PT pulses weakly palpable. CFT less than 5 seconds to digits. Normal temperature gradient. Hair growth is diminished to digits. Neurologic: There is decreased protective sensation to the foot with 5.07g [place] Joo monofilament. Musculoskeletal: Muscle strength 5 of 5 age-appropriate. There is decreased range of motion of the ankle joint dorsiflexion with the knee extended without pain or crepitus. There is prominent styloid process/base of fifth metatarsal noted. Does have tenderness to palpation. There is hyperkeratosis about the site secondary to pressure. Dermatologic: Skin does appear healthy with normal turgor. Does have hyperkeratosis about the base of the fifth metatarsal as stated above. Skin no rashes or lesions noted and skin turgor normal Neuro moves all extremities Debridement Note Debridement Note Debridement Free Text: Excisional debridement down to and including subcutaneoustissue with a #15 blade and sterile nail nipper to the styloid process of the right foot this was done without incident. Predebridement measurement was callus. Postdebridement measurement is 0.2 x 0.2 x 0.1 cm. Post-Debridement Measurements and Additional Note: Post-Debridement Measurements/Treatment - Nurse 1 - General Ulcer Assessment Start: 12/13/24 10:58 Freq: Status: Active Protocol: .LOWEXT Activity Type Activity Date Activity User E-sign Co-sign Detail Recorded Client Recorded Date Recorded By Document 12/13/24 10:58 ND [id number] 12/13/24 11:08 ND Document 12/20/24 10:52 CP [id number] 12/20/24 11:01 CP Document 12/27/24 10:45 KW [id number] 12/27/24 10:50 KW 12/13/24 12/20/24 12/27/24 10:58 10:52 10:45 - Today's Visit Information Type of service Initial Visit Follow-up Visit Follow-up Visit (Physician/MORTGAGE LOAN CLOSER (Physician/MORTGAGE LOAN CLOSER ) ) Arrival Mode Ambulatory Ambulatory Ambulatory Transfer Assistance None Patient Identification Verified (Name & Yes Yes Yes ) Patient Requires Transmission-Based No Precautions Safety Precautions Fall Prevention Vital Signs Temperature (97.8 F-99.1 F) 97.2 F L 97.2 F L 96.2 F L Temperature Source Temporal Temporal Temporal Pulse Rate (60-100) 55 L 58 L 64 Pulse Location Monitor Monitor Monitor Respiratory Rate (12-18) 18 16 16 Respiratory rate source Observation Observation Observation Oxygen Delivery Method Room Air Room Air Blood Pressure (90/60-120/80) 125/61 H 124/63 H 133/59 H Blood Pressure Mean (mm Hg) 82 83 83 Source Monitor Monitor Monitor Position Sitting Semi-Fowlers Semi-Fowlers Blood Pressure Location Right Arm Right Arm Left Arm History Since Last Visit- (Skip if this is Patient's initial visit) Have you changed medications since your No No last visit? Any new allergies or adverse reactions No No Had a fall/change in ADL's that may No No increase risk of falls Signs or symptoms of abuse and/or No No neglect since last visit Have you been in the hospital since your No No last visit? Has dressing in place as prescribed Yes Yes Yes Has compression in place as prescribed Yes N/A Has offloadiing in place as prescribed Yes N/A Experienced any changes in pain level or Yes No management Left Footwear Regular Shoe Regular Shoe Regular Shoe Right Footwear Regular Shoe Regular Shoe Regular Shoe Pain Scale: 0-10 Numeric Is Patient Pain Free? Yes Yes Yes WC - Nurse 1 - General Ulcer Measurement Start: 12/13/24 10:58 Freq: Status: Active Protocol: Activity Type Activity Date Activity User E-sign Co-sign Detail Recorded Client Recorded Date Recorded By Document 12/13/24 10:58 MT [id number] 12/13/24 11:08 ND Document 12/20/24 10:52 CP [id number] 12/20/24 11:01 CP Document 12/27/24 10:45 KW [id number] 12/27/24 10:50 KW 12/13/24 12/20/24 12/27/24 10:58 10:52 10:45 Wound Center Nurse 1 #8 Right Lateral Foot -Current Size (cm) - Length 0.1 0.1 1.5 -Current Size (cm) - Width 0.1 0.1 1.5 -Current Size (cm) - Depth 0.1 0 0.2 -Total Square Cm 0.01 0.01 2.25 -Date of Last Picture (Recall this 12/13/24 field) -Photo Taken Yes -Epithelialization Large 67-100% -Tunneling No -Undermining/Tunneling No -Circular Undermining No -Exudate Amt None Present None Present Medium -Exudate Type Serosanguineous -Wound Margin Thickened Indistinct, Non Distinct, -Visible Outline Attached -Granulation Amt Medium (34-66%) Small (1-33%) -Granulation Quality Pale,[place] Red -Necrosis Amt Medium (34-66%) Large (67-100%) -Necrotic Tissue Type Adherent Slough Eschar -Texture (Rocio-wound Skin Appearance) Assessed Assessed Assessed,Callus -Moisture (Rocio-wound Skin Appearance) Assessed Assessed Maceration -Color (Rocio-wound Skin Appearance) Assessed Assessed Assessed -Temperature (Rocio-wound Skin No Abnormality No Abnormality No Abnormality Appearance) (Pt Warm) (Pt Warm) (Pt Warm) -Tenderness on Palpation (Rocio-wound No No No Skin Appearance) -Ulcer Cleansing Soap and Water Rinsed/ Rinsed/ Irrigated with Irrigated with Saline Saline -Foul Odor after Cleansing No No No -Anesthetic Used 5% Lidocaine 5% Lidocaine 5% Lidocaine Gel Gel Gel Lower Limb Edema Present NA WC - Nurse 2 - General Ulcer CM Notes Start: 12/13/24 10:58 Freq: Status: Active Protocol: Activity Type Activity Date Activity User E-sign Co-sign Detail Recorded Client Recorded Date Recorded By Document 12/13/24 11:22 [id number] 12/13/24 11:31 Document 12/20/24 11:30 [id number] 12/20/24 11:32 Document 12/27/24 11:07 [id number] 12/27/24 11:11 12/13/24 12/20/24 12/27/24 11:22 11:30 11:07 Wound Center Nurse 2 #8 Right Lateral Foot -Time 11:22 11:30 11:08 -Correct Patient Yes Yes Yes -Correct Side, Site, Position Yes Yes Yes -Correct Procedure Yes Yes Yes -Procedure Performed Yes Yes Yes -Type of Procedure Debridement Debridement Debridement -Clinical Debridement Subcutaneous Subcutaneous Subcutaneous -Tissue Removed Subcutaneous Subcutaneous Subcutaneous -Post Debridement (cm) - Length 0.3 0.3 0.2 -Post Debridement (cm) - Width 0.5 0.3 0.2 -Post Debridement (cm) - Depth 0.2 0.2 0.1 -Total Square (Post) (cm) 0.15 0.09 0.04 -Area of Debridement (cm) - Length 0.3 0.3 0.2 -Area of Debridement (cm) - Width 0.5 0.3 0.2 -Total Square (Area) (cm) 0.15 0.09 0.04 -Tunneling No No No -Undermining/Tunneling No No No -Circular Undermining No No No -Wound/Ulcer Outcome Not Healed Not Healed Not Healed -Ulcer Cleansing Rinsed/ Rinsed/ Rinsed/ Irrigated with Irrigated with Irrigated with Saline Saline Saline -Foul Odor after Cleansing No No No -Bioengineered Tissue No No No -Bleeding Controlled with Pressure Pressure Pressure -Treatment Response Procedure Procedure Procedure Tolerated Well Tolerated Well Tolerated Well -Offloading No No No -Debridement - Subq, 1st 20sq cm Yes Yes Yes Pain Scale: 0-10 Numeric Is Patient Pain Free? Yes Yes Yes - Nurse 3 - General Ulcer D/C NN Start: 12/13/24 10:58 Freq: Status: Active Protocol: Activity Type Activity Date Activity User E-sign Co-sign Detail Recorded Client Recorded Date Recorded By Document 12/20/24 11:36 KW [id number] 12/20/24 11:37 KW Document 12/27/24 11:26 DL [id number] 12/27/24 11:27 DL 12/20/24 12/27/24 11:36 11:26 Wound Care Center Nurse 3 #8 Right Lateral Foot -Ulcer Cleansing Rinsed/ Irrigated with Saline -Foul Odor after Cleansing No -Other Dressing betadine betadine painted -Primary Dressing Covered/Secured with Dry Gauze, Dry Gauze, Secured with Secured with Tape Tape Treatment Response Procedure Tolerated Well Pain Scale: 0-10 Numeric Is Patient Pain Free? 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 All findings were discussed with the patient. All questions were answered to the patient's satisfaction. Excisional debridement down to and including subcutaneous tissue with a #15 blade and sterile nail nipper to the styloid process of the right foot this was done without incident. Predebridement measurement was callus. Postdebridement measurement is 0.2 x 0.2 x 0.1 cm. The right foot was wiped clean and patted dry. Betadine paint was applied to the styloid process followed by sterile Band-Aid. Review of the patient's orthotics showed evidence of 1 orthotic that had a offloading pad to the styloid process of right lower extremity. Recommend the patient to wear these as tolerated. I did show and educate the patient on the shoe stretcher from [place] which she was understanding of. If the patient is not improving I would recommend possibly a new pair custom inserts that I can make for him with offloading pad to the bilateral lower extremity styloid process on the lateral foot or we can move forward with surgical intervention in due to a shaving of the prominent bone which she was also understanding of. Follow-up at the wound care center with Dr. Adhikari in 1 week. 12/27/241835 <Electronically signed by Matt Adhikari DPM> Cosigner Signature (if applicable): CC: ~ Signed [facility] [place] Work Phone: 1(863) 354-284605-28-2025 Progress note [facility] [address] [place] [address] Progress Note - Wound Care 12/27/24 1833 MR#: [id number] Acct: [id number] Name: REGINO BONILLA Rep #:[id number] : 1955 69 From: Matt Breen PM PCP: Dr. Regino Diaz, DO Status:REG RCR Location: History of Present Illness Date of Service: 12/27/24 Chief Complaint: Left hallux ulceration History of Wound: Patient is a 69-year-old male who was referred to the wound care center for concern of a full-thickness wound to the lateral aspect of his right foot. Patient was seen at the wound care center and treated by Dr. Wei and healed. He did follow back up with Dr. French who treated his full- thickness wounds with offloading pads with some relief however there has been new breakdown of the skin to the outside of the left foot at the level of the styloid process fifth metatarsal. Treatment has been with self with triple antibiotic and Band-Aid. He is concerned for infection. Denies trauma. Deniesconstitutional symptoms. No other pedal complaints at this time. Progress of Wound: Stable full-thickness wound lateral right foot. No sign of infection. Subjective Subjective Patient is a 69-year-old male presenting to wound care center today for follow- up evaluation of full-thickness wound to the lateral aspect of the right foot. Patient presents today with his multiple orthotics. He is taking his antibioticas prescribed. He admits pain is improved. He admits to littledrainage to thebandage. Denies trauma. Denies constitutional symptoms. No other pedal complaints atthis time. Objective Data Objective Data Vital Signs: Vital Signs Temp Pulse Resp BP O2 Del Method 96.2 F L 64 16 133/59 H Room Air 12/27/24 10:45 12/27/24 10:45 12/27/24 10:45 12/27/24 10:45 12/27/24 10:45 Oxygen Delivery Method Room Air Lab / Micro Data Micro: Microbiology 12/13/24 11:30 Ulcer, Decubitus - Right Foot Gram Stain - Final 12/13/24 11:30 Ulcer, Decubitus - Right Foot Wound Culture - Final Staphylococcus lugdunensis Stenotrophomonas maltophilia 12/13/24 11:30 Ulcer, Decubitus - Right Foot Anaerobic Culture - Final Anaerobic cocci Physical Exam Narrative Vascular: DP and PT pulse are palpable to the bilateral extremity. CFT is brisk. Skin temperature is warm to warm from proximal ankles to distal digits bilateral. Nonpitting edema appreciated to the right foot. Neurological: Light touch intact. Protective sensation is intact. Patient response to painful stimuli. Dermatological: Full-thickness wound to the lateral aspect of the right foot at the level the styloid process. Full-thickness wound measures 0.2 x 0.2 x 0.1 cm. Wound base is granular. Hyperkeratoticperiwound is appreciated. No SOI. Excisional debridement down to and including subcutaneous tissue with a #15 blade and sterile nail nipper to the styloid process of the right foot this was done without incident. Predebridement measurement was callus. Postdebridement measurement is 0.2 x 0.2 x 0.1 cm. Musculoskeletal: No pain on palpation to the full-thickness right foot. No painwith calf pressure. Const alert, oriented x3 and no apparent distress General Appearance: cooperative HEENT normocephalic Eyes General Eye: normal appearance of both eyes Neck General: normal visual inspection Lymph Lymphatic: no lymphadenopathy noted and no lymphedema noted Resp normal respiratory effort Cardio regular rate and regular rhythm Extremity no calf tenderness Extremity Narrative: Left lower extremity: Vascular: DP and PT pulses weakly palpable. CFT less than 5 seconds to digits. Normal temperature gradient. Hair growth is diminished to digits. Neurologic: There is decreased protective sensation to the foot with 5.07g [place] monofilament. Musculoskeletal: Muscle strength 5 of 5 age-appropriate. There is decreased range of motion of the ankle joint dorsiflexion with the knee extended without pain or crepitus. There is prominent styloidprocess/base of fifth metatarsal noted. Does have tenderness to palpation. There is hyperkeratosis about the site secondary to pressure. Decreased range of motion of the first metatarsophalangeal joint dorsiflexion without pain or crepitus with foot unloaded and further reduction of motion with foot loaded consistent with a functional hallux limitus. Normal range of motion of the interphalangeal joint. Dermatologic: Skin does appear healthy with normal turgor. Does have hyperkeratosis about the base of the fifth metatarsal as stated above. There isalso improving hyperkeratosis with subdermal hemorrhaging at the plantar aspect of the interphalangeal joint secondary to his hallux limitus. No signs of infection. Right lower extremity: Vascular: DP and PT pulses weakly palpable. CFT less than 5 seconds to digits. Normal temperature gradient. Hair growth is diminished to digits. Neurologic: There is decreased protective sensation to the foot with 5.07g [place] monofilament. Musculoskeletal: Muscle strength 5 of 5 age-appropriate. There is decreased range of motion of the ankle joint dorsiflexion with the knee extended without pain or crepitus. There is prominent styloidprocess/base of fifth metatarsal noted. Does have tenderness to palpation. There is hyperkeratosis about the site secondary to pressure. Dermatologic: Skin does appear healthy with normal turgor. Does have hyperkeratosis about the base of the fifth metatarsal as stated above. Skin no rashes or lesions noted and skin turgor normal Neuro moves all extremities Debridement Note Debridement Note Debridement Free Text: Excisional debridement down to and including subcutaneoustissue with a #15 blade and sterile nail nipper to the styloid process of the right foot this was done without incident. Predebridement measurement was callus. Postdebridement measurement is 0.2 x 0.2 x 0.1 cm. Post-Debridement Measurements and Additional Note: Post-Debridement Measurements/Treatment - Nurse 1 - General Ulcer Assessment Start: 12/13/24 10:58 Freq: Status: Active Protocol: DON.MICHELLE Activity Type Activity Date Activity User E-sign Co-sign Detail Recorded Client Recorded Date Recorded By Document 12/13/24 10:58 MT [id number] 12/13/24 11:08 MT Document 12/20/24 10:52 CP [id number] 12/20/24 11:01 CP Document 12/27/24 10:45 KW [id number] 12/27/24 10:50 KW 12/13/24 12/20/24 12/27/24 10:58 10:52 10:45 - Today's Visit Information Type of service Initial Visit Follow-up Visit Follow-up Visit (Physician/MORTGAGE LOAN CLOSER (Physician/MORTGAGE LOAN CLOSER ) ) Arrival Mode Ambulatory Ambulatory Ambulatory Transfer Assistance None Patient Identification Verified (Name & Yes Yes Yes ) Patient Requires Transmission-Based No Precautions Safety Precautions Fall Prevention Vital Signs Temperature (97.8 F-99.1 F) 97.2 F L 97.2 F L 96.2 F L Temperature Source Temporal Temporal Temporal Pulse Rate (60-100) 55 L 58 L 64 Pulse Location Monitor Monitor Monitor Respiratory Rate (12-18) 18 16 16 Respiratory rate source Observation Observation Observation Oxygen Delivery Method Room Air Room Air Blood Pressure (90/60-120/80) 125/61 H 124/63 H 133/59 H Blood Pressure Mean (mm Hg) 82 83 83 Source Monitor Monitor Monitor Position Sitting Semi-Fowlers Semi-Fowlers Blood Pressure Location Right Arm Right Arm Left Arm History Since Last Visit- (Skip if this is Patient's initial visit) Have you changed medications since your No No last visit? Any new allergies or adverse reactions No No Had a fall/change in ADL's that may No No increase risk of falls Signs or symptoms of abuse and/or No No neglect since last visit Have you been in the hospital since your No No last visit? Has dressing in place as prescribed Yes Yes Yes Has compression in place as prescribed Yes N/A Has offloadiing in place as prescribed Yes N/A Experienced any changes in pain level or Yes No management Left Footwear Regular Shoe Regular Shoe Regular Shoe Right Footwear Regular Shoe Regular Shoe Regular Shoe Pain Scale: 0-10 Numeric Is Patient Pain Free? Yes Yes Yes WC - Nurse 1 - General Ulcer Measurement Start: 12/13/24 10:58 Freq: Status: Active Protocol: Activity Type Activity Date Activity User E-sign Co-sign Detail Recorded Client Recorded Date Recorded By Document 12/13/24 10:58 MT [id number] 12/13/24 11:08 MT Document 12/20/24 10:52 CP [id number] 12/20/24 11:01 CP Document 12/27/24 10:45 KW [id number] 12/27/24 10:50 KW 12/13/24 12/20/24 12/27/24 10:58 10:52 10:45 Wound Center Nurse 1 #8 Right Lateral Foot -Current Size (cm) - Length 0.1 0.1 1.5 -Current Size (cm) - Width 0.1 0.1 1.5 -Current Size (cm) - Depth 0.1 0 0.2 -Total Square Cm 0.01 0.01 2.25 -Date of Last Picture (Recall this 12/13/24 field) -Photo Taken Yes -Epithelialization Large 67-100% -Tunneling No -Undermining/Tunneling No -Circular Undermining No -Exudate Amt None Present None Present Medium -Exudate Type Serosanguineous -Wound Margin Thickened Indistinct, Non Distinct, -Visible Outline Attached -Granulation Amt Medium (34-66%) Small (1-33%) -Granulation Quality Pale,[place] Red -Necrosis Amt Medium (34-66%) Large (67-100%) -Necrotic Tissue Type Adherent Slough Eschar -Texture (Rocio-wound Skin Appearance) Assessed Assessed Assessed,Callus -Moisture (Rocio-wound Skin Appearance) Assessed Assessed Maceration -Color (Rocio-wound Skin Appearance) Assessed Assessed Assessed -Temperature (Rocio-wound Skin No Abnormality No Abnormality No Abnormality Appearance) (Pt Warm) (Pt Warm) (Pt Warm) -Tenderness on Palpation (Rocio-wound No No No Skin Appearance) -Ulcer Cleansing Soap and Water Rinsed/ Rinsed/ Irrigated with Irrigated with Saline Saline -Foul Odor after Cleansing No No No -Anesthetic Used 5% Lidocaine 5% Lidocaine 5% Lidocaine Gel Gel Gel Lower Limb Edema Present NA WC - Nurse 2 - General Ulcer CM Notes Start: 12/13/24 10:58 Freq: Status: Active Protocol: Activity Type Activity Date Activity User E-sign Co-sign Detail Recorded Client Recorded Date Recorded By Document 12/13/24 11:22 [id number] 12/13/24 11:31 Document 12/20/24 11:30 [id number] 12/20/24 11:32 Document 12/27/24 11:07 [id number] 12/27/24 11:11 12/13/24 12/20/24 12/27/24 11:22 11:30 11:07 Wound Center Nurse 2 #8 Right Lateral Foot -Time 11:22 11:30 11:08 -Correct Patient Yes Yes Yes -Correct Side, Site, Position Yes Yes Yes -Correct Procedure Yes Yes Yes -Procedure Performed Yes Yes Yes -Type of Procedure Debridement Debridement Debridement -Clinical Debridement Subcutaneous Subcutaneous Subcutaneous -Tissue Removed Subcutaneous Subcutaneous Subcutaneous -Post Debridement (cm) - Length 0.3 0.3 0.2 -Post Debridement (cm) - Width 0.5 0.3 0.2 -Post Debridement (cm) - Depth 0.2 0.2 0.1 -Total Square (Post) (cm) 0.15 0.09 0.04 -Area of Debridement (cm) - Length 0.3 0.3 0.2 -Area of Debridement (cm) - Width 0.5 0.3 0.2 -Total Square (Area) (cm) 0.15 0.09 0.04 -Tunneling No No No -Undermining/Tunneling No No No -Circular Undermining No No No -Wound/Ulcer Outcome Not Healed Not Healed Not Healed -Ulcer Cleansing Rinsed/ Rinsed/ Rinsed/ Irrigated with Irrigated with Irrigated with Saline Saline Saline -Foul Odor after Cleansing No No No -Bioengineered Tissue No No No -Bleeding Controlled with Pressure Pressure Pressure -Treatment Response Procedure Procedure Procedure Tolerated Well Tolerated Well Tolerated Well -Offloading No No No -Debridement - Subq, 1st 20sq cm Yes Yes Yes Pain Scale: 0-10 Numeric Is Patient Pain Free? Yes Yes Yes - Nurse 3 - General Ulcer D/C NN Start: 12/13/24 10:58 Freq: Status: Active Protocol: Activity Type Activity Date Activity User E-sign Co-sign Detail Recorded Client Recorded Date Recorded By Document 12/20/24 11:36 KW [id number] 12/20/24 11:37 KW Document 12/27/24 11:26 DL [id number] 12/27/24 11:27 DL 12/20/24 12/27/24 11:36 11:26 Wound Care Center Nurse 3 #8 Right Lateral Foot -Ulcer Cleansing Rinsed/ Irrigated with Saline -Foul Odor after Cleansing No -Other Dressing betadine betadine painted -Primary Dressing Covered/Secured with Dry Gauze, Dry Gauze, Secured with Secured with Tape Tape Treatment Response Procedure Tolerated Well Pain Scale: 0-10 Numeric Is Patient Pain Free? 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 All findings were discussed with the patient. All questions were answered to the patient's satisfaction. Excisional debridement down to and including subcutaneous tissue with a #15 blade and sterile nail nipper to the styloid process of the right foot this was done without incident. Predebridement measurement was callus. Postdebridement measurement is 0.2 x 0.2 x 0.1 cm. The right foot was wiped cleanand patted dry. Betadine paint was applied to the styloid process followed by sterile Band-Aid. Review of the patient's orthotics showed evidence of 1 orthotic that had a offloading pad to the styloid process of right lower extremity. Recommend the patient to wear these as tolerated. I did show and educate the patient on the shoe stretcher from [employer] which she was understanding of. If the patient is not improving I would recommend possibly a new pair custom inserts that I can make for him with offloading pad to the bilateral lower extremity styloid process on the lateral foot or we can move forward with surgical intervention in due to a shaving of the prominent bone which shewas also understanding of. Follow-up at the wound care center with Dr. Adhikari in 1 week. 12/27/24 1836 Cosigner Signature (if applicable): CC: ~ Signed [facility] [place]05-21-2025 Progress note Author Matt Adhikari [facility] [place] Note Date/Time December 20, 2024 12:54 pm [facility] [address] [place] [address] Progress Note - Wound Care 12/20/24 1250 MR#: [id number] Acct: [id number] Name: REGINO BONILLA Rep #:[id number] : 1955 69 From: Matt Breen PM PCP: Dr. Regino Diaz, DO Status:REG RCR Location: History of Present Illness Date of Service: 12/20/24 Chief Complaint: Left hallux ulceration History of Wound: Patient is a 69-year-old male who was referred to the wound care center for concern of a full-thickness wound to the lateral aspect of his right foot. Patient was seen at the wound care center and treated by Dr. Wei and healed. He did follow back up with Dr. French who treated his full-thickness wounds with offloading pads with some relief however there has been new breakdown of the skin to the outside of the left foot at the level of the styloid process fifth metatarsal. Treatment has been with self with triple antibiotic and Band-Aid. He is concerned for infection. Denies trauma. Deniesconstitutional symptoms. No other pedal complaints at this time. Progress of Wound: Stable full-thickness wound lateral right foot. No sign of infection. Subjective Subjective Patient is a 69-year-old male presenting to wound care center today for follow- up evaluation of full-thickness wound to the lateral aspect of the right foot. Patient has been dressing changes daily as discussed. He did get his x-rays andis here for evaluation and treatment of his open wound to the right foot. He isdoing well. He is wearing wider shoes with no pain. Denies any new onset of trauma. Denies constitutional symptoms. No other pedal complaints at this time. Objective Data Objective Data Vital Signs: Vital Signs Temp Pulse Resp BP O2 Del Method 97.2 F L 58 L 16 124/63 H Room Air 12/20/24 10:52 12/20/24 10:52 12/20/24 10:52 12/20/24 10:52 12/13/24 10:58 Oxygen Delivery Method Room Air Lab / Micro Data Micro: Microbiology 12/13/24 11:30 Ulcer, Decubitus - Right Foot Gram Stain - Final 12/13/24 11:30 Ulcer, Decubitus - Right Foot Wound Culture - Final Staphylococcus lugdunensis Stenotrophomonas maltophilia 12/13/24 11:30 Ulcer, Decubitus - Right Foot Anaerobic Culture - Final Anaerobic cocci Physical Exam Narrative Vascular: DP and PT pulse are palpable to the bilateral extremity. CFT is brisk. Skin temperature is warm to warm from proximal ankles to distal digits bilateral. Nonpitting edema appreciated to the right foot. Neurological: Light touch intact. Protective sensation is intact. Patient response to painful stimuli. Dermatological: Evidence of full-thickness wound to the lateral aspect of the right foot at the level the styloid process. Full-thickness wound measures 0.3 x 0.3 x 0.1 cm. Wound base is granular. Hyperkeratotic periwound is appreciated. Malodor improved. No probe to bone. Excisional debridement down to and including subcutaneous tissue with a #15 blade and sterile nail nipper to the styloid process of the right foot this was done without incident. Predebridement measurement was callus. Postdebridement measurement is 0.3 x 0.3 x 0.1 cm. Musculoskeletal: No pain on palpation to the full-thickness right foot. No painwith calf pressure. Const alert, oriented x3 and no apparent distress General Appearance: cooperative HEENT normocephalic Eyes General Eye: normal appearance of both eyes Neck General: normal visual inspection Lymph Lymphatic: no lymphadenopathy noted and no lymphedema noted Resp normal respiratory effort Cardio regular rate and regular rhythm Extremity no calf tenderness Extremity Narrative: Left lower extremity: Vascular: DP and PT pulses weakly palpable. CFT less than 5 seconds to digits. Normal temperature gradient. Hair growth is diminished to digits. Neurologic: There is decreased protective sensation to the foot with 5.07g [place] Joo monofilament. Musculoskeletal: Muscle strength 5 of 5 age-appropriate. There is decreased range of motion of the ankle joint dorsiflexion with the knee extended without pain or crepitus. There is prominent styloid process/base of fifth metatarsal noted. Does have tenderness to palpation. There is hyperkeratosis about the site secondary to pressure. Decreased range of motion of the first metatarsophalangeal joint dorsiflexion without pain or crepitus with foot unloaded and further reduction of motion with foot loaded consistent with a functional hallux limitus. Normal range of motion of the interphalangeal joint. Dermatologic: Skin does appear healthy with normal turgor. Does have hyperkeratosis about the base of the fifth metatarsal as stated above. There isalso improving hyperkeratosis with subdermal hemorrhaging at the plantar aspect of the interphalangeal joint secondary to his hallux limitus. No signs of infection. Right lower extremity: Vascular: DP and PT pulses weakly palpable. CFT less than 5 seconds to digits. Normal temperature gradient. Hair growth is diminished to digits. Neurologic: There is decreased protective sensation to the foot with 5.07g [place]oo monofilament. Musculoskeletal: Muscle strength 5 of 5 age-appropriate. There is decreased range of motion of the ankle joint dorsiflexion with the knee extended without pain or crepitus. There is prominent styloid process/base of fifth metatarsal noted. Does have tenderness to palpation. There is hyperkeratosis about the site secondary to pressure. Dermatologic: Skin does appear healthy with normal turgor. Does have hyperkeratosis about the base of the fifth metatarsal as stated above. Skin no rashes or lesions noted and skin turgor normal Neuro moves all extremities Debridement Note Debridement Note Debridement Free Text: Excisional debridement down to and including subcutaneoustissue with a #15 blade and sterile nail nipper to the styloid process of the right foot this was done without incident. Predebridement measurement was callus. Postdebridement measurement is 0.3 x 0.3 x 0.1 cm. Post-Debridement Measurements and Additional Note: Post-Debridement Measurements/Treatment DON - Nurse 1 - General Ulcer Assessment Start: 12/13/24 10:58 Freq: Status: Active Protocol: MATTHEW Activity Type Activity Date Activity User E-sign Co-sign Detail Recorded Client Recorded Date Recorded By Document 12/13/24 10:58 ND [id number] 12/13/24 11:08 ND Document 12/20/24 10:52 [id number] 12/20/24 11:01 12/13/24 12/20/24 10:58 10:52 - Today's Visit Information Type of service Initial Visit Follow-up Visit (Physician/MORTGAGE LOAN CLOSER ) Arrival Mode Ambulatory Ambulatory Transfer Assistance None Patient Identification Verified (Name & Yes Yes ) Patient Requires Transmission-Based No Precautions Safety Precautions Fall Prevention Vital Signs Temperature (97.8 F-99.1 F) 97.2 F L 97.2 F L Temperature Source Temporal Temporal Pulse Rate (60-100) 55 L 58 L Pulse Location Monitor Monitor Respiratory Rate (12-18) 18 16 Respiratory rate source Observation Observation Oxygen Delivery Method Room Air Blood Pressure (90/60-120/80) 125/61 H 124/63 H Blood Pressure Mean (mm Hg) 82 83 Source Monitor Monitor Position Sitting Semi-Fowlers Blood Pressure Location Right Arm Right Arm History Since Last Visit- (Skip if this is Patient's initial visit) Have you changed medications since your No last visit? Any new allergies or adverse reactions No Had a fall/change in ADL's that may No increase risk of falls Signs or symptoms of abuse and/or No neglect since last visit Have you been in the hospital since your No last visit? Has dressing in place as prescribed Yes Yes Has compression in place as prescribed Yes Has offloadiing in place as prescribed Yes Experienced any changes in pain level or Yes management Left Footwear Regular Shoe Regular Shoe Right Footwear Regular Shoe Regular Shoe Pain Scale: 0-10 Numeric Is Patient Pain Free? Yes Yes - Nurse 1 - General Ulcer Measurement Start: 12/13/24 10:58 Freq: Status: Active Protocol: Activity Type Activity Date Activity User E-sign Co-sign Detail Recorded Client Recorded Date Recorded By Document 12/13/24 10:58 ND [id number] 12/13/24 11:08 ND Document 12/20/24 10:52 [id number] 12/20/24 11:01 12/13/24 12/20/24 10:58 10:52 Wound Center Nurse 1 #8 Right Lateral Foot -Current Size (cm) - Length 0.1 0.1 -Current Size (cm) - Width 0.1 0.1 -Current Size (cm) - Depth 0.1 0 -Total Square Cm 0.01 0.01 -Date of Last Picture (Recall this 12/13/24 field) -Photo Taken Yes -Epithelialization Large 67-100% -Tunneling No -Undermining/Tunneling No -Circular Undermining No -Exudate Amt None Present None Present -Wound Margin Thickened Indistinct, Non -Visible -Granulation Amt Medium (34-66%) -Granulation Quality Pale,[place] -Necrosis Amt Medium (34-66%) -Necrotic Tissue Type Adherent Slough -Texture (Rocio-wound Skin Appearance) Assessed Assessed -Moisture (Rocio-wound Skin Appearance) Assessed Assessed -Color (Rocio-wound Skin Appearance) Assessed Assessed -Temperature (Rocio-wound Skin No Abnormality No Abnormality Appearance) (Pt Warm) (Pt Warm) -Tenderness on Palpation (Rocio-wound No No Skin Appearance) -Ulcer Cleansing Soap and Water Rinsed/ Irrigated with Saline -Foul Odor after Cleansing No No -Anesthetic Used 5% Lidocaine 5% Lidocaine Gel Gel Lower Limb Edema Present NA WC - Nurse 2 - General Ulcer CM Notes Start: 12/13/24 10:58 Freq: Status: Active Protocol: Activity Type Activity Date Activity User E-sign Co-sign Detail Recorded Client Recorded Date Recorded By Document 12/13/24 11:22 [id number] 12/13/24 11:31 Document 12/20/24 11:30 [id number] 12/20/24 11:32 12/13/24 12/20/24 11:22 11:30 Wound Center Nurse 2 #8 Right Lateral Foot -Time 11:22 11:30 -Correct Patient Yes Yes -Correct Side, Site, Position Yes Yes -Correct Procedure Yes Yes -Procedure Performed Yes Yes -Type of Procedure Debridement Debridement -Clinical Debridement Subcutaneous Subcutaneous -Tissue Removed Subcutaneous Subcutaneous -Post Debridement (cm) - Length 0.3 0.3 -Post Debridement (cm) - Width 0.5 0.3 -Post Debridement (cm) - Depth 0.2 0.2 -Total Square (Post) (cm) 0.15 0.09 -Area of Debridement (cm) - Length 0.3 0.3 -Area of Debridement (cm) - Width 0.5 0.3 -Total Square (Area) (cm) 0.15 0.09 -Tunneling No No -Undermining/Tunneling No No -Circular Undermining No No -Wound/Ulcer Outcome Not Healed Not Healed -Ulcer Cleansing Rinsed/ Rinsed/ Irrigated with Irrigated with Saline Saline -Foul Odor after Cleansing No No -Bioengineered Tissue No No -Bleeding Controlled with Pressure Pressure -Treatment Response Procedure Procedure Tolerated Well Tolerated Well -Offloading No No -Debridement - Subq, 1st 20sq cm Yes Yes Pain Scale: 0-10 Numeric Is Patient Pain Free? Yes Yes - Nurse 3 - General Ulcer D/C NN Start: 12/13/24 10:58 Freq: Status: Active Protocol: Activity Type Activity Date Activity User E-sign Co-sign Detail Recorded Client Recorded Date Recorded By Document 12/20/24 11:36 [id number] 12/20/24 11:37 12/20/24 11:36 Wound Care Center Nurse 3 #8 Right Lateral Foot -Other Dressing betadine painted -Primary Dressing Covered/Secured with Dry Gauze, Secured with Tape Pain Scale: 0-10 Numeric Is Patient Pain Free? Yes WC - Visit Discharge Discharge Condition Stable Ambulatory Status Ambulatory Transportation Private Auto Medication Reconcilliation completed & No provided to patient/care provider Clinical Summary of Care Provided Yes Assessment/Plan Assessment/Plan (1) Non-pressure chronic ulcer of other part of right foot with fat layer exposed: CODE(S): L97.512 - Non-pressure chronic ulcer of other part of right foot with fat layer exposed PLAN: Patient was examined and evaluated. All findings were discussed with the patient. All questions were answered to the patient's satisfaction. Excisional debridement down to and including subcutaneous tissue with a #15 blade and sterile nail nipper to the styloid process of the right foot this was done without incident. Predebridement measurement was callus. Postdebridement measurement is 0.3 x 0.3 x 0.1 cm. The right foot was cleaned and patted dry. Betadine paint followed by sterile bandage was applied. Patient will perform daily dressing changes. Educated the patient continue to wear wide shoe gear. Also educated the patientto buy a stretcher from [employer] to help stretch also educated the patient to buy a stretcher from [employer] to help stretch some narrow shoes that he still may be interested in wearing. At follow-up I educated the patient to bring in his orthotics so we can adjust some of them to have a offloading pad to the right and left styloid process. Review of the patient's microbiology results show evidence of polymicrobial organisms and will have to add Levaquin 500 mg daily for next 2 weeks of the patient's already doxycycline antibiotic. Review of the patient's radiograph show concerns for a rotated styloid process of the right foot and educated the patient on surgical intervention with planingof the bone and reattachment of the tendon. However, he would like to exhaust all conservative treatment at this time as the wound is improving with daily wound care. Follow-up at the wound care center with Dr. Adhikari in 1 week. 12/20/24 1254 <Electronically signed by Matt Adhikari DPM> Cosigner Signature (if applicable): CC: ~ Signed [facility] Work Phone: 1([phone]) 615-909805-21-2025 Progress note [facility] [address] [place] [address] Progress Note - Wound Care 12/20/24 1250 MR#: [id number] Acct: [id number] Name: REGINO BONILLA Rep #:[id number] : 1955 69 From: Matt Breen PM PCP: Dr. Regino Diaz, DO Status:REG RCR Location: History of Present Illness Date of Service: 12/20/24 Chief Complaint: Left hallux ulceration History of Wound: Patient is a 69-year-old male who was referred to the wound care center for concern of a full-thickness wound to the lateral aspect of his right foot. Patient was seen at the wound care center and treated by Dr. Wei and healed. He did follow back up with Dr. French who treated his full- thickness wounds with offloading pads with some relief however there has been new breakdown of the skin to the outside of the left foot at the level of the styloid process fifth metatarsal. Treatment has been with self with triple antibiotic and Band-Aid. He is concerned for infection. Denies trauma. Deniesconstitutional symptoms. No other pedal complaints at this time. Progress of Wound: Stable full-thickness wound lateral right foot. No sign of infection. Subjective Subjective Patient is a 69-year-old male presenting to wound care center today for follow- up evaluation of full-thickness wound to the lateral aspect of the right foot. Patient has been dressing changes daily as discussed. He did get his x-rays andis here for evaluation and treatment of his open wound to the right foot. He isdoing well. He is wearing wider shoes with no pain. Denies any new onset of trauma.Denies constitutional symptoms. No other pedal complaints at this time. Objective Data Objective Data Vital Signs: Vital Signs Temp Pulse Resp BP O2 Del Method 97.2 F L 58 L 16 124/63 H Room Air 12/20/24 10:52 12/20/24 10:52 12/20/24 10:52 12/20/24 10:52 12/13/24 10:58 Oxygen Delivery Method Room Air Lab / Micro Data Micro: Microbiology 12/13/24 11:30 Ulcer, Decubitus - Right Foot Gram Stain - Final 12/13/24 11:30 Ulcer, Decubitus - Right Foot Wound Culture - Final Staphylococcus lugdunensis Stenotrophomonas maltophilia 12/13/24 11:30 Ulcer, Decubitus - Right Foot Anaerobic Culture - Final Anaerobic cocci Physical Exam Narrative Vascular: DP and PT pulse are palpable to the bilateral extremity. CFT is brisk. Skin temperature is warm to warm from proximal ankles to distal digits bilateral. Nonpitting edema appreciated to the right foot. Neurological: Light touch intact. Protective sensation is intact. Patient response to painful stimuli. Dermatological: Evidence of full-thickness wound to the lateral aspect of the right foot at the level the styloid process. Full-thickness wound measures 0.3 x 0.3 x 0.1 cm. Wound base is granular. Hyperkeratotic periwound is appreciated. Malodor improved. No probe to bone. Excisional debridement down to and including subcutaneous tissue with a #15 blade and sterile nail nipper to the styloid process of the right foot this was done without incident. Predebridement measurement was callus. Postdebridement measurement is 0.3 x 0.3 x 0.1 cm. Musculoskeletal: No pain on palpation to the full-thickness right foot. No painwith calf pressure. Const alert, oriented x3 and no apparent distress General Appearance: cooperative HEENT normocephalic Eyes General Eye: normal appearance of both eyes Neck General: normal visual inspection Lymph Lymphatic: no lymphadenopathy noted and no lymphedema noted Resp normal respiratory effort Cardio regular rate and regular rhythm Extremity no calf tenderness Extremity Narrative: Left lower extremity: Vascular: DP and PT pulses weakly palpable. CFT less than 5 seconds to digits. Normal temperature gradient. Hair growth is diminished to digits. Neurologic: There is decreased protective sensation to the foot with 5.07g [place] monofilament. Musculoskeletal: Muscle strength 5 of 5 age-appropriate. There is decreased range of motion of the ankle joint dorsiflexion with the knee extended without pain or crepitus. There is prominent styloidprocess/base of fifth metatarsal noted. Does have tenderness to palpation. There is hyperkeratosis about the site secondary to pressure. Decreased range of motion of the first metatarsophalangeal joint dorsiflexion without pain or crepitus with foot unloaded and further reduction of motion with foot loaded consistent with a functional hallux limitus. Normal range of motion of the interphalangeal joint. Dermatologic: Skin does appear healthy with normal turgor. Does have hyperkeratosis about the base of the fifth metatarsal as stated above. There isalso improving hyperkeratosis with subdermal hemorrhaging at the plantar aspect of the interphalangeal joint secondary to his hallux limitus. No signs of infection. Right lower extremity: Vascular: DP and PT pulses weakly palpable. CFT less than 5 seconds to digits. Normal temperature gradient. Hair growth is diminished to digits. Neurologic: There is decreased protective sensation to the foot with 5.07g [place] monofilament. Musculoskeletal: Muscle strength 5 of 5 age-appropriate. There is decreased range of motion of the ankle joint dorsiflexion with the knee extended without pain or crepitus. There is prominent styloidprocess/base of fifth metatarsal noted. Does have tenderness to palpation. There is hyperkeratosis about the site secondary to pressure. Dermatologic: Skin does appear healthy with normal turgor. Does have hyperkeratosis about the base of the fifth metatarsal as stated above. Skin no rashes or lesions noted and skin turgor normal Neuro moves all extremities Debridement Note Debridement Note Debridement Free Text: Excisional debridement down to and including subcutaneoustissue with a #15 blade and sterile nail nipper to the styloid process of the right foot this was done without incident. Predebridement measurement was callus. Postdebridement measurement is 0.3 x 0.3 x 0.1 cm. Post-Debridement Measurements and Additional Note: Post-Debridement Measurements/Treatment - Nurse 1 - General Ulcer Assessment Start: 12/13/24 10:58 Freq: Status: Active Protocol: MATTHEW Activity Type Activity Date Activity User E-sign Co-sign Detail Recorded Client Recorded Date Recorded By Document 12/13/24 10:58 ND [id number] 12/13/24 11:08 ND Document 12/20/24 10:52 [id number] 12/20/24 11:01 12/13/24 12/20/24 10:58 10:52 WC - Today's Visit Information Type of service Initial Visit Follow-up Visit (Physician/[employer] ) Arrival Mode Ambulatory Ambulatory Transfer Assistance None Patient Identification Verified (Name & Yes Yes ) Patient Requires Transmission-Based No Precautions Safety Precautions Fall Prevention Vital Signs Temperature (97.8 F-99.1 F) 97.2 F L 97.2 F L Temperature Source Temporal Temporal Pulse Rate (60-100) 55 L 58 L Pulse Location Monitor Monitor Respiratory Rate (12-18) 18 16 Respiratory rate source Observation Observation Oxygen Delivery Method Room Air Blood Pressure (90/60-120/80) 125/61 H 124/63 H Blood Pressure Mean (mm Hg) 82 83 Source Monitor Monitor Position Sitting Semi-Fowlers Blood Pressure Location Right Arm Right Arm History Since Last Visit- (Skip if this is Patient's initial visit) Have you changed medications since your No last visit? Any new allergies or adverse reactions No Had a fall/change in ADL's that may No increase risk of falls Signs or symptoms of abuse and/or No neglect since last visit Have you been in the hospital since your No last visit? Has dressing in place as prescribed Yes Yes Has compression in place as prescribed Yes Has offloadiing in place as prescribed Yes Experienced any changes in pain level or Yes management Left Footwear Regular Shoe Regular Shoe Right Footwear Regular Shoe Regular Shoe Pain Scale: 0-10 Numeric Is Patient Pain Free? Yes Yes - Nurse 1 - General Ulcer Measurement Start: 12/13/24 10:58 Freq: Status: Active Protocol: Activity Type Activity Date Activity User E-sign Co-sign Detail Recorded Client Recorded Date Recorded By Document 12/13/24 10:58 ND [id number] 12/13/24 11:08 ND Document 12/20/24 10:52 [id number] 12/20/24 11:01 12/13/24 12/20/24 10:58 10:52 Wound Center Nurse 1 #8 Right Lateral Foot -Current Size (cm) - Length 0.1 0.1 -Current Size (cm) - Width 0.1 0.1 -Current Size (cm) - Depth 0.1 0 -Total Square Cm 0.01 0.01 -Date of Last Picture (Recall this 12/13/24 field) -Photo Taken Yes -Epithelialization Large 67-100% -Tunneling No -Undermining/Tunneling No -Circular Undermining No -Exudate Amt None Present None Present -Wound Margin Thickened Indistinct, Non -Visible -Granulation Amt Medium (34-66%) -Granulation Quality Pale,[place] -Necrosis Amt Medium (34-66%) -Necrotic Tissue Type Adherent Slough -Texture (Rocio-wound Skin Appearance) Assessed Assessed -Moisture (Rocio-wound Skin Appearance) Assessed Assessed -Color (Rocio-wound Skin Appearance) Assessed Assessed -Temperature (Rocio-wound Skin No Abnormality No Abnormality Appearance) (Pt Warm) (Pt Warm) -Tenderness on Palpation (Rocio-wound No No Skin Appearance) -Ulcer Cleansing Soap and Water Rinsed/ Irrigated with Saline -Foul Odor after Cleansing No No -Anesthetic Used 5% Lidocaine 5% Lidocaine Gel Gel Lower Limb Edema Present NA WC - Nurse 2 - General Ulcer CM Notes Start: 12/13/24 10:58 Freq: Status: Active Protocol: Activity Type Activity Date Activity User E-sign Co-sign Detail Recorded Client Recorded Date Recorded By Document 12/13/24 11:22 [id number] 12/13/24 11:31 Document 12/20/24 11:30 [id number] 12/20/24 11:32 12/13/24 12/20/24 11:22 11:30 Wound Center Nurse 2 #8 Right Lateral Foot -Time 11:22 11:30 -Correct Patient Yes Yes -Correct Side, Site, Position Yes Yes -Correct Procedure Yes Yes -Procedure Performed Yes Yes -Type of Procedure Debridement Debridement -Clinical Debridement Subcutaneous Subcutaneous -Tissue Removed Subcutaneous Subcutaneous -Post Debridement (cm) - Length 0.3 0.3 -Post Debridement (cm) - Width 0.5 0.3 -Post Debridement (cm) - Depth 0.2 0.2 -Total Square (Post) (cm) 0.15 0.09 -Area of Debridement (cm) - Length 0.3 0.3 -Area of Debridement (cm) - Width 0.5 0.3 -Total Square (Area) (cm) 0.15 0.09 -Tunneling No No -Undermining/Tunneling No No -Circular Undermining No No -Wound/Ulcer Outcome Not Healed Not Healed -Ulcer Cleansing Rinsed/ Rinsed/ Irrigated with Irrigated with Saline Saline -Foul Odor after Cleansing No No -Bioengineered Tissue No No -Bleeding Controlled with Pressure Pressure -Treatment Response Procedure Procedure Tolerated Well Tolerated Well -Offloading No No -Debridement - Subq, 1st 20sq cm Yes Yes Pain Scale: 0-10 Numeric Is Patient Pain Free? Yes Yes - Nurse 3 - General Ulcer D/C NN Start: 12/13/24 10:58 Freq: Status: Active Protocol: Activity Type Activity Date Activity User E-sign Co-sign Detail Recorded Client Recorded Date Recorded By Document 12/20/24 11:36 [id number] 12/20/24 11:37 12/20/24 11:36 Wound Care Center Nurse 3 #8 Right Lateral Foot -Other Dressing betadine painted -Primary Dressing Covered/Secured with Dry Gauze, Secured with Tape Pain Scale: 0-10 Numeric Is Patient Pain Free? Yes - Visit Discharge Discharge Condition Stable Ambulatory Status Ambulatory Transportation Private Auto Medication Reconcilliation completed & No provided to patient/care provider Clinical Summary of Care Provided Yes Assessment/Plan Assessment/Plan (1) Non-pressure chronic ulcer of other part of right foot with fat layer exposed: CODE(S): L97.512 - Non-pressure chronic ulcer of other part of right foot with fat layer exposed PLAN: Patient was examined and evaluated. All findings were discussed with the patient. All questions were answered to the patient's satisfaction. Excisional debridement down to and including subcutaneous tissue with a #15 blade and sterile nail nipper to the styloid process of the right foot this was done without incident. Predebridement measurement was callus. Postdebridement measurement is 0.3 x 0.3 x 0.1 cm. The right foot was cleaned andpatted dry. Betadine paint followed by sterile bandage was applied. Patient will perform daily dressing changes. Educated the patient continue to wear wide shoe gear. Also educated the patientto buy a stretcher from [place] to help stretch also educated the patient to buy a stretcher from [employer] to help stretch some narrow shoes that he still may be interested in wearing. At follow-up I educated the patient to bring in his orthotics so we can adjust some of them to havea offloading pad to the right and left styloid process. Review of the patient's microbiology results show evidence of polymicrobial organisms and will haveto add Levaquin 500 mg daily for next 2 weeks of the patient's already doxycycline antibiotic. Review of the patient's radiograph show concerns for a rotated styloid process of the right foot and educated the patient on surgical intervention with planingof the bone and reattachment of the tendon. However, he would like to exhaust all conservative treatment at this time as the wound is improving with daily wound care. Follow-up at the wound care center with Dr. Adhikari in 1 week. 12/20/24 1254 Cosigner Signature (if applicable): CC: ~ Signed [facility] [place]05-15-2025 Radiology Diagnostic study note [facility] Imaging Services [address], [place] [address] Foot min 3 Views MR#: [id number] Acct: [id number] Name: REGINO BONILLA Rep #: [id number] : 1955 M 69 From: Jayme Vaz MD PCP: Dr. Regino Diaz, DO Status: REG CLI Study:Foot min 3 Views Date of Exam: Exam# [id number] Ordering Dr: Deshawn Adhikari DPJeannie PROCEDURE: FOOT MIN 3 VIEWS 12/13/2024 REASON FOR EXAM: ULCER, BONE SPURS TECHNIQUE: 3 views of the right foot. Weightbearing COMPARISON: 07/09/2021 FINDINGS: No fracture or dislocation. Suggestion of soft tissue bunion base of the 5th metatarsal. Joint spaces appear within limits. Small to moderate plantar and small Achilles surface calcaneal enthesophyte, spur formation. Cuneiform metatarsal dorsal joint osteoarthrosis, spur formation seen on the lateral view. Vascular calcifications. Ankle osteoarthrosis. No periosteal reaction or osseous destructive change identified. RAD/Foot min 3 Views IMPRESSION: Suggestion of soft tissue bunion base of the 5th metatarsal. Small to moderate plantar and small Achilles surface calcaneal enthesophyte, spur formation. Reading Location: [facility] CC: DPJeannie Adhikari; Dr. Regino Diaz DO ~ [employer] Displays Analyst: Signed [facility] [place]05-15-2025 Radiology Diagnostic study note [facility] Imaging Services [address] [place] [address] Foot min 3 Views MR#: [id number] Acct: [id number] Name: REGINO BONILLA Rep #: [id number] : 1955 M 69 From: Jayme Vaz MD PCP: Dr. Regino Diaz DO Status: REG CLI Study:Foot min 3 Views Date of Exam: Exam# [id number] Ordering Dr: Deshawn Adhikari DPM PROCEDURE: FOOT MIN 3 VIEWS 12/13/2024 REASON FOR EXAM: ULCER, BONE SPURS TECHNIQUE: 3 views of the left foot. Weightbearing FINDINGS: No fracture or dislocation. The joint spaces appear within limits. Moderate plantar and small Achilles surface calcaneal enthesophyte, spur formation. Vascular calcifications noted. Ankle osteoarthrosis. Appearance of a soft tissue bunion over the base of the 5th metatarsal. No periosteal reaction or osseous destructive change. RAD/Foot min 3 Views IMPRESSION: Moderate plantar and small Achilles surface calcaneal enthesophyte, spur formation. Appearance of a soft tissue bunion over the base of the 5th metatarsal. No periosteal reaction or osseous destructive change. Reading Location: [facility] CC: ANAND Adhikari; Dr. Regino Diaz DO ~ [employer] Displays Analyst: Signed [facility] [place]05-14-2025 History and physical note Author Matt Adhikari [facility] [place] Note Date/Time December 13, 2024 11:56 am [facility] [address] [place] [address] H&P Exam - Wound Care 12/13/24 1151 MR#: [id number] Acct: [id number] Name: REGINO BONILLA Rep #:[id number] : 1955 69 From: Matt Breen PM PCP: Dr. Regino Diaz, DO Status:REG RCR Location: History of Present Illness Date of Service: 12/13/24 Chief Complaint: Left hallux ulceration History of Wound: Patient is a 69-year-old male who was referred to the wound care center for concern of a full-thickness wound to the lateral aspect of his right foot. Patient was seen at the wound care center and treated by Dr. Wei and healed. He did follow back up with Dr. French who treated his full-thickness wounds with offloading pads with some relief however there has been new breakdown of the skin to the outside of the left foot at the level of the styloid process fifth metatarsal. Treatment has been with self with triple antibiotic and Band-Aid. He is concerned for infection. Denies trauma. Deniesconstitutional symptoms. No other pedal complaints at this time. Progress of Wound: Stable full-thickness wound lateral right foot. No sign of infection. [facility] Medical History Wears glasses Bone spur of foot Loss of hearing Anxiety Marijuana use Arthritis Syncope Heartburn Former smoker COPD (chronic obstructive pulmonary disease) CPAP (continuous positive airway pressure) dependence Leg cramps History of edema History of pain when walking Raynaud disease Neuropathy Home Medications ?Medication ?Instructions ?Recorded ?Last Taken ?Type multivitamin (Daily Multi-Vitamin 1 tab PO DAILY 06/0709/05/23 History tablet) turmeric 100 mg-carlos 150 1 cap PO DAILY 06/07/2311/23 History mg-olive 50 mg-oreg 150 mg-capryl capsule omega-3 fatty acids-fish oil 360 1 cap PO DAILY 09/05/23 History mg-1,200 mg capsule (Fish Oil) polyethylene glycol 3350 17 4 g PO DAILY PRN constipat ion 08/20/23 Unknown History gram/dose oral powder (Miralax) gabapentin 400 mg capsule 400 mg PO DAILY 05/23/24 Unk nown History fluticasone propionate 50 1 spray intranasal BID nasal 06/18/24 Unknown Rx mcg/actuation nasal congestion #16 grams spray,suspension doxycycline hyclate 100 mg capsule 100 mg PO BID 2 wee ks #28 caps 12/13/24 Unknown Rx Allergy/AdvReac Type Severity Reaction Status Date / Time grass pollen Allergy runny nose Verified 12/05/24 18:39 Family History Father Diabetes ALYSSA (obstructive sleep apnea) Surgical History Hx of colonoscopy Hx of LASIK Hx of oral surgery Hx of right cataract extraction Hx of left cataract extraction Hx of appendectomy Social History household members: none current occupational status: retired Smoking Status: Never smoker second hand exposure: No alcohol intake: current alcohol intake frequency: a few times a week details: stopped drinking one year ago substance use type: does not use what type of physical activity do you participate in: walking and bicycling anam/voodoo: Holiness Vital Signs Vital Signs Vital Signs: 12/13/24 10:58 Temperature 97.2 F L Temperature Source Temporal Pulse Rate 55 L Respiratory Rate 18 Blood Pressure 125/61 H Blood Pressure Mean 82 Blood Pressure Source Monitor Blood Pressure Position Sitting Blood Pressure Location Right Arm Oxygen Delivery Method Room Air Physical Exam Narrative Vascular: DP and PT pulse are palpable to the bilateral extremity. CFT is brisk. Skin temperature is warm to warm from proximal ankles to distal digits bilateral. Nonpitting edema appreciated to the right foot. Neurological: Light touch intact. Protective sensation is intact. Patient response to painful stimuli. Dermatological: Evidence of full-thickness wound to the lateral aspect of the right foot at the level the styloid process. Full-thickness wound measures 0.3 x 0.5 x 0.2 cm. Wound base is granular. Hyperkeratotic periwound is appreciated. Mild malodor is noted. Negative probe to bone. Evidence of hyperkeratotic tissue to the lateral left foot at the level of the styloid process fifth metatarsal. No sign of infection. Evidence of hyperkeratotic tissue to the plantar aspect of the distal phalanx of the left hallux. Excisional debridement down to and including subcutaneous tissue with a #15 blade and sterile nail nipper to the styloid process of the right foot this was done without incident. Predebridement measurement was callus. Postdebridement measurement is 0.3 x 0.5 x 0.2 cm. Musculoskeletal: Strength 5 out of 5 in all quadrants bilateral. Palpable exostosis at the level of the navicular. Palpable exostosis is appreciated to the level of the styloid process bilateral foot. Hallux malleus deformity is appreciated left foot. Upon weightbearing the patient has mild decrease in medial longitudinal arch. Rest of cooking in stance position is 0 degrees in neutral. No pain with calf pressure. Debridement Note Debridement Note Debridement Free Text: Excisional debridement down to and including subcutaneoustissue with a #15 blade and sterile nail nipper to the styloid process of the right foot this was done without incident. Predebridement measurement was callus. Postdebridement measurement is 0.3 x 0.5 x 0.2 cm. Post-Debridement Measurements and Additional Note: Post-Debridement Measurements/Treatment - Nurse 1 - General Ulcer Assessment Start: 12/13/24 10:58 Freq: Status: Active Protocol: .LOWEXT Activity Type Activity Date Activity User E-sign Co-sign Detail Recorded Client Recorded Date Recorded By Document 12/13/24 10:58 ND [id number] 12/13/24 11:08 ND 12/13/24 10:58 - Today's Visit Information Type of service Initial Visit Arrival Mode Ambulatory Patient Identification Verified (Name & Yes ) Safety Precautions Fall Prevention Vital Signs Temperature (97.8 F-99.1 F) 97.2 F L Temperature Source Temporal Pulse Rate (60-100) 55 L Pulse Location Monitor Respiratory Rate (12-18) 18 Respiratory rate source Observation Oxygen Delivery Method Room Air Blood Pressure (90/60-120/80) 125/61 H Blood Pressure Mean 82 Source Monitor Position Sitting Blood Pressure Location Right Arm History Since Last Visit- (Skip if this is Patient's initial visit) Has dressing in place as prescribed Yes Has compression in place as prescribed Yes Has offloadiing in place as prescribed Yes Experienced any changes in pain level or Yes management Left Footwear Regular Shoe Right Footwear Regular Shoe Pain Scale: 0-10 Numeric Is Patient Pain Free? Yes - Nurse 1 - General Ulcer Measurement Start: 12/13/24 10:58 Freq: Status: Active Protocol: Activity Type Activity Date Activity User E-sign Co-sign Detail Recorded Client Recorded Date Recorded By Document 12/13/24 10:58 ND [id number] 12/13/24 11:08 ND 12/13/24 10:58 Wound Center Nurse 1 #8 Right Lateral Foot -Current Size (cm) - Length 0.1 -Current Size (cm) - Width 0.1 -Current Size (cm) - Depth 0.1 -Total Square Cm 0.01 -Date of Last Picture (Recall this 12/13/24 field) -Photo Taken Yes -Epithelialization Large 67-100% -Tunneling No -Undermining/Tunneling No -Circular Undermining No -Exudate Amt None Present -Wound Margin Thickened -Granulation Amt Medium (34-66%) -Granulation Quality Pale,[place] -Necrosis Amt Medium (34-66%) -Necrotic Tissue Type Adherent Slough -Texture (Rocio-wound Skin Appearance) Assessed -Moisture (Rocio-wound Skin Appearance) Assessed -Color (Rocio-wound Skin Appearance) Assessed -Temperature (Rocio-wound Skin No Abnormality Appearance) (Pt Warm) -Tenderness on Palpation (Rocio-wound No Skin Appearance) -Ulcer Cleansing Soap and Water -Foul Odor after Cleansing No -Anesthetic Used 5% Lidocaine Gel Lower Limb Edema Present NA WC - Nurse 2 - General Ulcer CM Notes Start: 12/13/24 10:58 Freq: Status: Active Protocol: Activity Type Activity Date Activity User E-sign Co-sign Detail Recorded Client Recorded Date Recorded By Document 12/13/24 11:22 [id number] 12/13/24 11:31 12/13/24 11:22 Wound Center Nurse 2 #8 Right Lateral Foot -Time 11:22 -Correct Patient Yes -Correct Side, Site, Position Yes -Correct Procedure Yes -Procedure Performed Yes -Type of Procedure Debridement -Clinical Debridement Subcutaneous -Tissue Removed Subcutaneous -Post Debridement (cm) - Length 0.3 -Post Debridement (cm) - Width 0.5 -Post Debridement (cm) - Depth 0.2 -Total Square (Post) (cm) 0.15 -Area of Debridement (cm) - Length 0.3 -Area of Debridement (cm) - Width 0.5 -Total Square (Area) (cm) 0.15 -Tunneling No -Undermining/Tunneling No -Circular Undermining No -Wound/Ulcer Outcome Not Healed -Ulcer Cleansing Rinsed/ Irrigated with Saline -Foul Odor after Cleansing No -Bioengineered Tissue No -Bleeding Controlled with Pressure -Treatment Response Procedure Tolerated Well -Offloading No -Debridement - Subq, 1st 20sq cm Yes Pain Scale: 0-10 Numeric Is Patient Pain Free? Yes Assessment/Plan Assessment/Plan (1) Non-pressure chronic ulcer of other part of right foot with fat layer exposed: CODE(S): L97.512 - Non-pressure chronic ulcer of other part of right foot with fat layer exposed PLAN: Patient was examined and evaluated. All findings were discussed with the patient. All questions were answered to the patient's satisfaction. Excisional debridement down to and including subcutaneous tissue with a #15 blade and sterile nail nipper to the styloid process of the right foot this was done without incident. Predebridement measurement was callus. Postdebridement measurement is 0.3 x 0.5 x 0.2 cm. Culture was taken to rule out any underlyingbacterial infection. Patient be placed on doxycycline 100 mg twice daily until culture returned. Will adjust antibiotics as needed. The area was wiped clean and patted dry. The right foot full-thickness wound was dressed with Betadine paint sterile Band-Aid. Patient to do daily dressing changes. Patient will be getting bilateral weightbearing foot films at the hospital today for further discussion regarding surgical intervention to rebalance the patient's mechanics to the right and left foot. Follow-up at the wound care center with Dr. Adhikari in 1 week. 12/13/24 1156 <Electronically signed by Matt Adhikari DPM> Cosigner Signature (if applicable): CC: ~ Signed [facility] Work Phone: [phone] 814-550105-14-2025 History and physical note [facility] [address] [place] [address] H&P Exam - Wound Care 12/13/24 1151 MR#: [id number] Acct: [id number] Name: REGINO BONILLA Rep #:[id number] : 1955 69 From: Matt CONRAD PCP: Dr. Regino Diaz, DO Status:REG RCR Location: History of Present Illness Date of Service: 12/13/24 Chief Complaint: Left hallux ulceration History of Wound: Patient is a 69-year-old male who was referred to the wound care center for concern of a full-thickness wound to the lateral aspect of his right foot. Patient was seen at the wound care center and treated by Dr. Wei and healed. He did follow back up with Dr. French who treated his full- thickness wounds with offloading pads with some relief however there has been new breakdown of the skin to the outside of the left foot at the level of the styloid process fifth metatarsal. Treatment has been with self with triple antibiotic and Band-Aid. He is concerned for infection. Denies trauma. Deniesconstitutional symptoms. No other pedal complaints at this time. Progress of Wound: Stable full-thickness wound lateral right foot. No sign of infection. [facility] Medical History Wears glasses Bone spur of foot Loss of hearing Anxiety Marijuana use Arthritis Syncope Heartburn Former smoker COPD (chronic obstructive pulmonary disease) CPAP (continuous positive airway pressure) dependence Leg cramps History of edema History of pain when walking Raynaud disease Neuropathy Home Medications ?Medication ?Instructions ?Recorded ?Last Taken ?Type multivitamin (Daily Multi-Vitamin 1 tab PO DAILY 06/0709/05/23 History tablet) turmeric 100 mg-carlos 150 1 cap PO DAILY 06/07/2311/23 History mg-olive 50 mg-oreg 150 mg-capryl capsule omega-3 fatty acids-fish oil 360 1 cap PO DAILY 09/05/23 History mg-1,200 mg capsule (Fish Oil) polyethylene glycol 3350 17 4 g PO DAILY PRN constipat ion 08/20/23 Unknown History gram/dose oral powder (Miralax) gabapentin 400 mg capsule 400 mg PO DAILY 05/23/24 Unk nown History fluticasone propionate 50 1 spray intranasal BID nasal 06/18/24 Unknown Rx mcg/actuation nasal congestion #16 grams spray,suspension doxycycline hyclate 100 mg capsule 100 mg PO BID 2 wee ks #28 caps 12/13/24 Unknown Rx Allergy/AdvReac Type Severity Reaction Status Date / Time grass pollen Allergy runny nose Verified 12/05/24 18:39 Family History Father Diabetes ALYSSA (obstructive sleep apnea) Surgical History Hx of colonoscopy Hx of LASIK Hx of oral surgery Hx of right cataract extraction Hx of left cataract extraction Hx of appendectomy Social History household members: none current occupational status: retired Smoking Status: Never smoker second hand exposure: No alcohol intake: current alcohol intake frequency: a few times a week details: stopped drinking one year ago substance use type: does not use what type of physical activity do you participate in: walking and bicycling anam/voodoo: Holiness Vital Signs Vital Signs Vital Signs: 12/13/24 10:58 Temperature 97.2 F L Temperature Source Temporal Pulse Rate 55 L Respiratory Rate 18 Blood Pressure 125/61 H Blood Pressure Mean 82 Blood Pressure Source Monitor Blood Pressure Position Sitting Blood Pressure Location Right Arm Oxygen Delivery Method Room Air Physical Exam Narrative Vascular: DP and PT pulse are palpable to the bilateral extremity. CFT is brisk. Skin temperature is warm to warm from proximal ankles to distal digits bilateral. Nonpitting edema appreciated to the right foot. Neurological: Light touch intact. Protective sensation is intact. Patient response to painful stimuli. Dermatological: Evidence of full-thickness wound to the lateral aspect of the right foot at the level the styloid process. Full-thickness wound measures 0.3 x 0.5 x 0.2 cm. Wound base is granular. Hyperkeratotic periwound is appreciated. Mild malodor is noted. Negative probe to bone. Evidence of hyperkeratotic tissue to the lateral left foot at the level of the styloid process fifth metatarsal. No sign of infection. Evidence of hyperkeratotic tissue to the plantar aspect of the distal phalanx of the left hallux. Excisional debridement down to and including subcutaneous tissue with a #15 blade and sterile nail nipper to the styloid process of the right foot this was done without incident. Predebridement measurement was callus. Postdebridement measurement is 0.3 x 0.5 x 0.2 cm. Musculoskeletal: Strength 5 out of 5 in all quadrants bilateral. Palpable exostosis at the level ofthe navicular. Palpable exostosis is appreciated to the level of the styloid process bilateral foot. Hallux malleus deformity is appreciated left foot. Upon weightbearing the patient has mild decrease in medial longitudinal arch. Rest of cooking in stance position is 0 degrees in neutral. No pain with calf pressure. Debridement Note Debridement Note Debridement Free Text: Excisional debridement down to and including subcutaneoustissue with a #15 blade and sterile nail nipper to the styloid process of the right foot this was done without incident. Predebridement measurement was callus. Postdebridement measurement is 0.3 x 0.5 x 0.2 cm. Post-Debridement Measurements and Additional Note: Post-Debridement Measurements/Treatment - Nurse 1 - General Ulcer Assessment Start: 12/13/24 10:58 Freq: Status: Active Protocol: MATTHEW Activity Type Activity Date Activity User E-sign Co-sign Detail Recorded Client Recorded Date Recorded By Document 12/13/24 10:58 ND [id number] 12/13/24 11:08 ND 12/13/24 10:58 - Today's Visit Information Type of service Initial Visit Arrival Mode Ambulatory Patient Identification Verified (Name & Yes ) Safety Precautions Fall Prevention Vital Signs Temperature (97.8 F-99.1 F) 97.2 F L Temperature Source Temporal Pulse Rate (60-100) 55 L Pulse Location Monitor Respiratory Rate (12-18) 18 Respiratory rate source Observation Oxygen Delivery Method Room Air Blood Pressure (90/60-120/80) 125/61 H Blood Pressure Mean 82 Source Monitor Position Sitting Blood Pressure Location Right Arm History Since Last Visit- (Skip if this is Patient's initial visit) Has dressing in place as prescribed Yes Has compression in place as prescribed Yes Has offloadiing in place as prescribed Yes Experienced any changes in pain level or Yes management Left Footwear Regular Shoe Right Footwear Regular Shoe Pain Scale: 0-10 Numeric Is Patient Pain Free? Yes - Nurse 1 - General Ulcer Measurement Start: 12/13/24 10:58 Freq: Status: Active Protocol: Activity Type Activity Date Activity User E-sign Co-sign Detail Recorded Client Recorded Date Recorded By Document 12/13/24 10:58 ND [id number] 12/13/24 11:08 ND 12/13/24 10:58 Wound Center Nurse 1 #8 Right Lateral Foot -Current Size (cm) - Length 0.1 -Current Size (cm) - Width 0.1 -Current Size (cm) - Depth 0.1 -Total Square Cm 0.01 -Date of Last Picture (Recall this 12/13/24 field) -Photo Taken Yes -Epithelialization Large 67-100% -Tunneling No -Undermining/Tunneling No -Circular Undermining No -Exudate Amt None Present -Wound Margin Thickened -Granulation Amt Medium (34-66%) -Granulation Quality Pale,[place] -Necrosis Amt Medium (34-66%) -Necrotic Tissue Type Adherent Slough -Texture (Rocio-wound Skin Appearance) Assessed -Moisture (Rocio-wound Skin Appearance) Assessed -Color (Rocio-wound Skin Appearance) Assessed -Temperature (Rocio-wound Skin No Abnormality Appearance) (Pt Warm) -Tenderness on Palpation (Rocio-wound No Skin Appearance) -Ulcer Cleansing Soap and Water -Foul Odor after Cleansing No -Anesthetic Used 5% Lidocaine Gel Lower Limb Edema Present NA WC - Nurse 2 - General Ulcer CM Notes Start: 12/13/24 10:58 Freq: Status: Active Protocol: Activity Type Activity Date Activity User E-sign Co-sign Detail Recorded Client Recorded Date Recorded By Document 12/13/24 11:22 PATRICIA [id number] 12/13/24 11:31 PATRICIA 12/13/24 11:22 Wound Center Nurse 2 #8 Right Lateral Foot -Time 11:22 -Correct Patient Yes -Correct Side, Site, Position Yes -Correct Procedure Yes -Procedure Performed Yes -Type of Procedure Debridement -Clinical Debridement Subcutaneous -Tissue Removed Subcutaneous -Post Debridement (cm) - Length 0.3 -Post Debridement (cm) - Width 0.5 -Post Debridement (cm) - Depth 0.2 -Total Square (Post) (cm) 0.15 -Area of Debridement (cm) - Length 0.3 -Area of Debridement (cm) - Width 0.5 -Total Square (Area) (cm) 0.15 -Tunneling No -Undermining/Tunneling No -Circular Undermining No -Wound/Ulcer Outcome Not Healed -Ulcer Cleansing Rinsed/ Irrigated with Saline -Foul Odor after Cleansing No -Bioengineered Tissue No -Bleeding Controlled with Pressure -Treatment Response Procedure Tolerated Well -Offloading No -Debridement - Subq, 1st 20sq cm Yes Pain Scale: 0-10 Numeric Is Patient Pain Free? Yes Assessment/Plan Assessment/Plan (1) Non-pressure chronic ulcer of other part of right foot with fat layer exposed: CODE(S): L97.512 - Non-pressure chronic ulcer of other part of right foot with fat layer exposed PLAN: Patient was examined and evaluated. All findings were discussed with the patient. All questions were answered to the patient's satisfaction. Excisional debridement down to and including subcutaneous tissue with a #15 blade and sterile nail nipper to the styloid process of the right foot this was done without incident. Predebridement measurement was callus. Postdebridement measurement is 0.3 x 0.5 x 0.2 cm. Culture was taken to rule out any underlyingbacterial infection. Patient be placed on doxycycline 100 mg twice daily until culturereturned. Will adjust antibiotics as needed. The area was wiped clean and patted dry. The right foot full-thickness wound was dressed with Betadine paint sterile Band-Aid. Patient to do daily dressing changes. Patient will be getting bilateral weightbearing foot films at the hospital today for further discussion regarding surgical intervention to rebalance the patient's mechanics to the right and left foot. Follow-up at the wound care center with Dr. Adhikari in 1 week. 12/13/24 1156 Cosigner Signature (if applicable): CC: ~ Signed [facility]05-06-2025 Discharge summary [facility] Medical Records Department [address] [place] [address] Emergency Department Summary 12/05/24 MR#: [id number] Acct: [id number] Name: REGINO BONILLA Rep #:[id number] : 1955 69 From: Janes Lara MD PCP: Dr. Regino Diaz, DO Status:REG ER Location: ED HPI History of Present Illness Chief Complaint: Headache Informant: patient Onset/Context/Timing Onset: Days Context: Gradual Timing: Continuous Quality -Headache: Positive for Dull, Throbbing and Tightness Current Severity: Mild Maximum Severity: Mild Associated Symptoms/Injury Associated Symptoms: Negative for Fever, Nausea, Vomiting, Sore Throat, Sinus Pressure, Numbness, Tingling, Preceding Aura, Visual Changes, Blurred Vision, Photophobia or Visual Loss Injury - SARABIA: Negative for Direct Trauma, Fall or Assault Narrative Narrative: 69-year-old male states on Wednesday had a headache. Initially he may have had some slurred speech forseveral minutes that is since resolved. Denies any fallinjury or trauma. He is on no blood thinners. He denies a history of chronic headaches. He had an MRI in June which was negative. He denies any fever or sinus congestion. No neck pain. No prior brain or neck surgery. Prior similar symptoms: Yes Recent Illness/Hospitalization: No PFSH PFSH Medical History Wears glasses Bone spur of foot Loss of hearing Anxiety Marijuana use Arthritis Syncope Heartburn Former smoker COPD (chronic obstructive pulmonary disease) CPAP (continuous positive airway pressure) dependence Leg cramps History of edema History of pain when walking Raynaud disease Neuropathy Home Medications ?Medication ?Instructions ?Recorded ?Last Taken ?Type multivitamin (Daily Multi-Vitamin 1 tab PO DAILY 06/0709/05/23 History tablet) turmeric 100 mg-carlos 150 1 cap PO DAILY 06/07/2311/23 History mg-olive 50 mg-oreg 150 mg-capryl capsule omega-3 fatty acids-fish oil 360 1 cap PO DAILY 09/05/23 History mg-1,200 mg capsule (Fish Oil) polyethylene glycol 3350 17 4 g PO DAILY PRN constipat ion 08/20/23 Unknown History gram/dose oral powder (Miralax) gabapentin 400 mg capsule 400 mg PO DAILY 05/23/24 Unk nown History fluticasone propionate 50 1 spray intranasal BID nasal 06/18/24 Unknown Rx mcg/actuation nasal congestion #16 grams spray,suspension Allergy/AdvReac Type Severity Reaction Status Date / Time grass pollen Allergy runny nose Verified 12/05/24 18:39 Family History Father Diabetes ALYSSA (obstructive sleep apnea) Surgical History Hx of colonoscopy Hx of LASIK Hx of oral surgery Hx of right cataract extraction Hx of left cataract extraction Hx of appendectomy Social History household members: none current occupational status: retired Smoking Status: Never smoker second hand exposure: No alcohol intake: current alcohol intake frequency: a few times a week details: stopped drinking one year ago substance use type: does not use what type of physical activity do you participate in: walking and bicycling anam/voodoo: Holiness ROS ROS ED ROS Narrative Headache. Denies other symptoms currently. Constitutional Constitutional ED: Denies chills or fever(s) Eyes Eyes: Denies blurry vision ENT ENT ED: Denies ear pain Cardiovascular Cardiovascular: Denies chest pain Respiratory/Chest Respiratory/Chest: Denies cough or dyspnea Gastrointestinal Gastrointestinal: Denies abdominal pain, diarrhea, nausea or vomiting Genitourinary Genitourinary ED: Denies dysuria or hematuria Musculoskeletal Musculoskeletal: Denies arthralgias or back pain Integumentary Denies abscess Neurologic Neurologic: Reports headache(s); Denies paresthesias or weakness Psychiatric Psychiatric: Denies anxiety Endocrine Endocrinology: Denies polydipsia, polyphagia or polyuria Hematologic/Lymphatic Hematologic/Lymphatic: Denies easy bleeding, easy bruising or lymphadenopathy Allergic/Immunologic Allergic/Immunologic ED: Denies mouth swelling, tongue swelling or urticaria EXAM Physical Exam Narrative Exam Narrative: 69-year-old male sitting upright in bed. Vital signs are stable afebrile. Blood pressure 132/69. Hedoes not appear to be septic toxic is no distress. There is no family with him. H EENT exam pupils round reactive light. Extra motions are intact. No signs of trauma. Nontender. No frontal maxillary sinustenderness. Moist mucous membranes. Tongue midline. Normal speech. No facialdroop. Neck nontender. No lymphadenopathy. No meningismus. Lungs clear to auscultation bilaterally. Heart regular rhythm rate about 60 no murmur. Chest wall ribs nontender. Abdomen soft nontender. Moving all 4 extremities. 5 out of 5 network contractor strength bilaterally. Dorsi plantarflexion intact. No drift to either upper or lower extremities. Rapid hand movements normal. Fingertip to nose normal. Patient got up stood and walked out of the room into the hallway and back without any difficulty and no ataxia. Back exam normal. Neurologic exam normal. NIH 0. Const Vital Signs: 12/05/24 18:39 Temperature 97.7 F L Temperature Source Temporal Pulse Rate 58 L Respiratory Rate 18 Blood Pressure 132/69 H Blood Pressure Mean 90 Pulse Ox 99 Oxygen Delivery Method Room Air Positive well nourished and well developed; Negative for obese, cachectic, contractures or unkempt General Appearance ED: well developed and NAD; Negative for unkempt, cachectic, contractures, cyanotic, diaphoretic or pallor Nutritional Appearance: Negative for cachectic or obese HEENT Reports normocephalic and moist mucous membranes atraumatic; Negative for trauma, tenderness, temporal artery tenderness or vesicular rash Face and Sinus: Negative for sinus tenderness Eyes PERRL and EOMs intact bilaterally General Eye ED: Negative for pale conjunctiva or scleral icterus Neck no lymphadenopathy, supple, no meningeal signs and no JVD Resp normal respiratory effort and clear to auscultation bilaterally Cardio regular rate, regular rhythm, S1 normal heart sound, S2 normal heart sound and no murmurs Rate: Negative for bradycardia or tachycardic Rhythm: Negative for abnormal rhythm GI non-tender and non-distended Palpation: soft; Negative for firm or tender Back/Spine no CVA tenderness General Back: Negative for CVA tenderness Cervical Spine: Negative for cervical spine tenderness Thoracic Spine / Upper Back: Negative for thoracic spinal tenderness Lumbar Spine / Lower Back: Negative for lumbar spinal tenderness Extremity normal to inspection and full ROM General Extremety ED: Negative for edema or tenderness General Extremity: Negative for edema Neuro oriented x3 and CN's II-XII intact bilaterally Neuro Narrative: NIH equals 0. He walks without any difficulty. Sensorium / Orientation: awake, alert, oriented to person, oriented to place andoriented to time; Negative for orientation impaired or lethargic Coordination / Balance: [id number]-[id number]-[id number] test normal and dkzp-cm-[id number] test normal Speech: speech normal Gait (Neuro): normal gait Motor Exam: strength 5/5 throughout Psych mental status grossly normal Appearance: Negative for unkempt Mood & Affect: Negative for tearful Skin General Skin Exam: elasticity normal; Negative for turgor normal, jaundice or pallor Lesions: no lesions Rashes: no rashes MDM MDM MDM Narrative Medical decision making narrative: 69-year-old male reported headache and possibly slurred speech on Wednesday the headache has been constant but the other symptoms resolved. He denies any trouble using his arms or legs. He denies any weakness. He denies any numbness. He is never had a stroke or mini stroke there is been no trauma. Discussed a completely normal exam and neurologic exam at this time. His NIH is0. I will do a CT of hisbrain. He had an MRI in June of last year which was unremarkable. Chronic changes. Screening labs to be obtained. Be treated for his headache with Compazine, IV fluids and Tylenol and reassess. Repeat exam at 8:16 PM patient doing well. Neurologic exam remains normal. He is awake alert. Said his headaches resolved after receiving Tylenol p.o. and Compazine IV. We went over his lab results and CAT scan is comfortable being discharged home with outpatient follow-up as needed. History & Record Review Discussion w/independent historian: Patient Additional record(s) reviewed:: Prior inpatient record, Prior outpatient record,Prior ED visit and Prior labs Lab Data Attestation: I reviewed the patient's lab results. Lab results narrative: CBC shows a white count of 5. H&H 13 and 40. Platelets 240. Electrolytes show a gap of 10. BUN 25 creatinine 0.9. Glucose 94. CAT scan shows no acute abnormality. Read by the radiologist reviewed by me. Labs: Laboratory Results - last 24 hr 12/05/24 19:02 WBC 5.4 RBC 4.20 L Hgb 13.6 Hct 40.1 MCV 95.5 H MCH 32.4 H MCHC 33.9 RDW Std Deviation 46.2 H RDW Coeff of Beatrice 13.1 Plt Count 240 MPV 10.3 Immature Gran % (Auto) 0.200 Neut % (Auto) 60.9 Lymph % (Auto) 31.1 Parker % (Auto) 5.9 Eos % (Auto) 1.5 Baso % (Auto) 0.4 Absolute Neuts (auto) 3.3 Absolute Lymphs (auto) 1.69 Nucleated RBC % 0 Sodium 139 Potassium 4.1 Chloride 105 Carbon Dioxide 25.2 Anion Gap 10 BUN 25 H Creatinine 0.90 Estim Creat Clear Calc 85.02 Est GFR (MDRD) Non-Af 93 BUN/Creatinine Ratio 27.7 H Glucose 94 Calcium 9.4 Radiography Diagnostic Testing: Clinical Impression(s) from Imaging Studies Brain CT 12/05/24 19:47 IMPRESSION: No acute intracranial abnormalities are demonstrated. Reading Location: [facility] Discharge Plan Triage Chief Complaint: Headache ED Provider: Janes Lara Dx/Rx/DC Orders Clinical Impression: Headache Instructions: ED Headache Unspecified Prescriptions: No Action omega-3 fatty acids-fish oil [Fish Oil] 360-1,200 mg capsule 1 cap PO DAILY polyethylene glycol 3350 [Miralax] 17 gram/dose powder 4 g PO DAILY PRN (Reason: constipation) multivitamin [Daily Multi-Vitamin] Tablet 1 tab PO DAILY uataaioi-feph-zfcnz-oreg-capry 100 mg-150 mg- 50 mg-150 mg capsule 1 cap PO DAILY fluticasone propionate 50 mcg/actuation spray,suspension 1 spray intranasal BID Qty: 16 0RF Rx Instructions: administer into each nostril gabapentin 400 mg capsule 400 mg PO DAILY Primary Care Provider: Regino iDaz Referrals: Regino Diaz DO [Primary Care Provider] - As Needed Activity Restrictions/Additional Instructions: The CAT scan your brain and your labs look good. No specific cause for your headache. Tylenol for pain. Follow-up with your doctor if you keep getting recurrent headaches or feeling worse. Print Language: Sudanese Disposition Disposition: Home, Self Care What to do if you have Problems For any increased pain, shortness of breath, bleeding, nausea or vomiting, chestpain, or any unexpected problems, contact your Primary Care Provider. Call [facility] ([phone]) or report tothe closest Emergency Room. Call 911 if necessary. 12/05/242033 Cosigner Signature (if applicable): CC: Dr. Regino Diaz DO ~ Signed [facility]05-06-2025 Radiology Diagnostic study note [facility] Imaging Services [address] [place] [address] [id number] Brain/Head without Contrast MR#: [id number] Acct: [id number] Name: CHADREGINO Grace Rep #: [id number] : 1955 M 69 From: Izzy Graves MD PCP: Dr. Regino Diaz DO Status: [facility] ER Study:Brain/Head without Contrast Date of Exa m: 12/05/24 Exam# [id number] Ordering Dr: Altaf Lara MD PROCEDURE: BRAIN/HEAD WITHOUT CONTRAST 12/05/2024 REASON FOR EXAM: HEADACHE TECHNIQUE: Contiguous axial scans of 3.75 mm slice thicknesses with sagittal and coronal reconstruction images. One or more dose reduction techniques were utilized (e.g., automated exposure control, adjustment of mA and/or kv according to patient size, use of iterative reconstruction technique). RADIATION DOSE SUMMARY: DLP: 897.35 mGycm COMPARISON: No relevant prior FINDINGS: Cerebrum: No intraparenchymal hemorrhage. No abnormal areas of encephalomalacia.No mass effect or midline shift. Ariza-white matter differentiation is normal. Ventricles and cisterns: Appropriate size for patient's age. Extra-axial fluid: Unremarkable. Posterior fossa: Unremarkable cerebellum. No abnormalities involving the brainstem. Paranasal sinuses: Normal. Vasculature: Unremarkable. Mastoid air cells: unremarkable. Calvarium: Unremarkable. Soft tissues: Unremarkable.. Artifact from dental enhancements. CT/Brain/Head without Contrast IMPRESSION: No acute intracranial abnormalities are demonstrated. Reading Location: [facility] CC: Dr. Janes Lara MD; Dr. Regino Diaz DO ~ [employer] Dis[employer] Analyst: Signed [facility]05-06-2025 Discharge summary Author Janes Lara [facility] Note Date/Time December 05, 2024 8:34pm [facility] Medical Records Department [address] [place] [address] Emergency Department Summary 12/05/24 MR#: [id number] Acct: [id number] Name: REGINO BONILLA Rep #:[id number] : 1955 69 From: Janes Lara MD PCP: Dr. Regino Diaz DO Status:REG ER Location: ED HPI History of Present Illness Chief Complaint: Headache Informant: patient Onset/Context/Timing Onset: Days Context: Gradual Timing: Continuous Quality -Headache: Positive for Dull, Throbbing and Tightness Current Severity: Mild Maximum Severity: Mild Associated Symptoms/Injury Associated Symptoms: Negative for Fever, Nausea, Vomiting, Sore Throat, Sinus Pressure, Numbness, Tingling, Preceding Aura, Visual Changes, Blurred Vision, Photophobia or Visual Loss Injury - SARABIA: Negative for Direct Trauma, Fall or Assault Narrative Narrative: 69-year-old male states on Wednesday had a headache. Initially he may have had some slurred speech for several minutes that is since resolved. Denies any fallinjury or trauma. He is on no blood thinners. He denies a history of chronic headaches. He had an MRI in June which was negative. He denies any fever or sinus congestion. No neck pain. No prior brain or neck surgery. Prior similar symptoms: Yes Recent Illness/Hospitalization: No PFSH PFS Medical History Wears glasses Bone spur of foot Loss of hearing Anxiety Marijuana use Arthritis Syncope Heartburn Former smoker COPD (chronic obstructive pulmonary disease) CPAP (continuous positive airway pressure) dependence Leg cramps History of edema History of pain when walking Raynaud disease Neuropathy Home Medications ?Medication ?Instructions ?Recorded ?Last Taken ?Type multivitamin (Daily Multi-Vitamin 1 tab PO DAILY 06/0709/05/23 History tablet) turmeric 100 mg-carlos 150 1 cap PO DAILY 06/07/2311/23 History mg-olive 50 mg-oreg 150 mg-capryl capsule omega-3 fatty acids-fish oil 360 1 cap PO DAILY 09/05/23 History mg-1,200 mg capsule (Fish Oil) polyethylene glycol 3350 17 4 g PO DAILY PRN constipat ion 08/20/23 Unknown History gram/dose oral powder (Miralax) gabapentin 400 mg capsule 400 mg PO DAILY 05/23/24 Unk nown History fluticasone propionate 50 1 spray intranasal BID nasal 06/18/24 Unknown Rx mcg/actuation nasal congestion #16 grams spray,suspension Allergy/AdvReac Type Severity Reaction Status Date / Time grass pollen Allergy runny nose Verified 12/05/24 18:39 Family History Father Diabetes ALYSSA (obstructive sleep apnea) Surgical History Hx of colonoscopy Hx of LASIK Hx of oral surgery Hx of right cataract extraction Hx of left cataract extraction Hx of appendectomy Social History household members: none current occupational status: retired Smoking Status: Never smoker second hand exposure: No alcohol intake: current alcohol intake frequency: a few times a week details: stopped drinking one year ago substance use type: does not use what type of physical activity do you participate in: walking and bicycling anam/voodoo: Holiness ROS ROS ED ROS Narrative Headache. Denies other symptoms currently. Constitutional Constitutional ED: Denies chills or fever(s) Eyes Eyes: Denies blurry vision ENT ENT ED: Denies ear pain Cardiovascular Cardiovascular: Denies chest pain Respiratory/Chest Respiratory/Chest: Denies cough or dyspnea Gastrointestinal Gastrointestinal: Denies abdominal pain, diarrhea, nausea or vomiting Genitourinary Genitourinary ED: Denies dysuria or hematuria Musculoskeletal Musculoskeletal: Denies arthralgias or back pain Integumentary Denies abscess Neurologic Neurologic: Reports headache(s); Denies paresthesias or weakness Psychiatric Psychiatric: Denies anxiety Endocrine Endocrinology: Denies polydipsia, polyphagia or polyuria Hematologic/Lymphatic Hematologic/Lymphatic: Denies easy bleeding, easy bruising or lymphadenopathy Allergic/Immunologic Allergic/Immunologic ED: Denies mouth swelling, tongue swelling or urticaria EXAM Physical Exam Narrative Exam Narrative: 69-year-old male sitting upright in bed. Vital signs are stable afebrile. Blood pressure 132/69. He does not appear to be septic toxic is no distress. There is no family with him. H EENT exam pupils round reactive light. Extra motions are intact. No signs of trauma. Nontender. No frontal maxillary sinustenderness. Moist mucous membranes. Tongue midline. Normal speech. No facialdroop. Neck nontender. No lymphadenopathy. No meningismus. Lungs clear to auscultation bilaterally. Heart regular rhythm rate about 60 no murmur. Chest wall ribs nontender. Abdomen soft nontender. Moving all 4 extremities. 5 out of 5 network contractor strength bilaterally. Dorsi plantarflexion intact. No drift to either upper or lower extremities. Rapid hand movements normal. Fingertip to nose normal. Patient got up stood and walked out of the room into the hallway and back without any difficulty and no ataxia. Back exam normal. Neurologic exam normal. NIH 0. Const Vital Signs: 12/05/24 18:39 Temperature 97.7 F L Temperature Source Temporal Pulse Rate 58 L Respiratory Rate 18 Blood Pressure 132/69 H Blood Pressure Mean 90 Pulse Ox 99 Oxygen Delivery Method Room Air Positive well nourished and well developed; Negative for obese, cachectic, contractures or unkempt General Appearance ED: well developed and NAD; Negative for unkempt, cachectic, contractures, cyanotic, diaphoretic or pallor Nutritional Appearance: Negative for cachectic or obese HEENT Reports normocephalic and moist mucous membranes atraumatic; Negative for trauma, tenderness, temporal artery tenderness or vesicular rash Face and Sinus: Negative for sinus tenderness Eyes PERRL and EOMs intact bilaterally General Eye ED: Negative for pale conjunctiva or scleral icterus Neck no lymphadenopathy, supple, no meningeal signs and no JVD Resp normal respiratory effort and clear to auscultation bilaterally Cardio regular rate, regular rhythm, S1 normal heart sound, S2 normal heart sound and no murmurs Rate: Negative for bradycardia or tachycardic Rhythm: Negative for abnormal rhythm GI non-tender and non-distended Palpation: soft; Negative for firm or tender Back/Spine no CVA tenderness General Back: Negative for CVA tenderness Cervical Spine: Negative for cervical spine tenderness Thoracic Spine / Upper Back: Negative for thoracic spinal tenderness Lumbar Spine / Lower Back: Negative for lumbar spinal tenderness Extremity normal to inspection and full ROM General Extremety ED: Negative for edema or tenderness General Extremity: Negative for edema Neuro oriented x3 and CN's II-XII intact bilaterally Neuro Narrative: NIH equals 0. He walks without any difficulty. Sensorium / Orientation: awake, alert, oriented to person, oriented to place andoriented to time; Negative for orientation impaired or lethargic Coordination / Balance: ostggh-ja-swqd test normal and yrpc-hj-carf test normal Speech: speech normal Gait (Neuro): normal gait Motor Exam: strength 5/5 throughout Psych mental status grossly normal Appearance: Negative for unkempt Mood & Affect: Negative for tearful Skin General Skin Exam: elasticity normal; Negative for turgor normal, jaundice or pallor Lesions: no lesions Rashes: no rashes MDM MDM MDM Narrative Medical decision making narrative: 69-year-old male reported headache and possibly slurred speech on Wednesday the headache has been constant but the other symptoms resolved. He denies any trouble using his arms or legs. He denies any weakness. He denies any numbness. He is never had a stroke or mini stroke there is been no trauma. Discussed a completely normal exam and neurologic exam at this time. His NIH is0. I will do a CT of his brain. He had an MRI in June of last year which was unremarkable. Chronic changes. Screening labs to be obtained. Be treated for his headache with Compazine, IV fluids and Tylenol and reassess. Repeat exam at 8:16 PM patient doing well. Neurologic exam remains normal. He is awake alert. Said his headaches resolved after receiving Tylenol p.o. and Compazine IV. We went over his lab results and CAT scan is comfortable being discharged home with outpatient follow-up as needed. History & Record Review Discussion w/independent historian: Patient Additional record(s) reviewed:: Prior inpatient record, Prior outpatient record,Prior ED visit and Prior labs Lab Data Attestation: I reviewed the patient's lab results. Lab results narrative: CBC shows a white count of 5. H&H 13 and 40. Platelets 240. Electrolytes show a gap of 10. BUN 25 creatinine 0.9. Glucose 94. CAT scan shows no acute abnormality. Read by the radiologist reviewed by me. Labs: Laboratory Results - last 24 hr 12/05/24 19:02 WBC 5.4 RBC 4.20 L Hgb 13.6 Hct 40.1 MCV 95.5 H MCH 32.4 H MCHC 33.9 RDW Std Deviation 46.2 H RDW Coeff of Beatrice 13.1 Plt Count 240 MPV 10.3 Immature Gran % (Auto) 0.200 Neut % (Auto) 60.9 Lymph % (Auto) 31.1 Parker % (Auto) 5.9 Eos % (Auto) 1.5 Baso % (Auto) 0.4 Absolute Neuts (auto) 3.3 Absolute Lymphs (auto) 1.69 Nucleated RBC % 0 Sodium 139 Potassium 4.1 Chloride 105 Carbon Dioxide 25.2 Anion Gap 10 BUN 25 H Creatinine 0.90 Estim Creat Clear Calc 85.02 Est GFR (MDRD) Non-Af 93 BUN/Creatinine Ratio 27.7 H Glucose 94 Calcium 9.4 Radiography Diagnostic Testing: Clinical Impression(s) from Imaging Studies Brain CT 12/05/24 19:47 IMPRESSION: No acute intracranial abnormalities are demonstrated. Reading Location: [facility] Discharge Plan Triage Chief Complaint: Headache ED Provider: Janes Lara Dx/Rx/DC Orders Clinical Impression: Headache Instructions: ED Headache Unspecified Prescriptions: No Action omega-3 fatty acids-fish oil [Fish Oil] 360-1,200 mg capsule 1 cap PO DAILY polyethylene glycol 3350 [Miralax] 17 gram/dose powder 4 g PO DAILY PRN (Reason: constipation) multivitamin [Daily Multi-Vitamin] Tablet 1 tab PO DAILY ybrzuhfd-vcpq-cxxpn-oreg-capry 100 mg-150 mg- 50 mg-150 mg capsule 1 cap PO DAILY fluticasone propionate 50 mcg/actuation spray,suspension 1 spray intranasal BID Qty: 16 0RF Rx Instructions: administer into each nostril gabapentin 400 mg capsule 400 mg PO DAILY Primary Care Provider: Regino Diaz Referrals: Regino Diaz DO [Primary Care Provider] - As Needed Activity Restrictions/Additional Instructions: The CAT scan your brain and your labs look good. No specific cause for your headache. Tylenol for pain. Follow-up with your doctor if you keep getting recurrent headaches or feeling worse. Print Language: Sudanese Disposition Disposition: Home, Self Care What to do if you have Problems For any increased pain, shortness of breath, bleeding, nausea or vomiting, chestpain, or any unexpected problems, contact your Primary Care Provider. Call [facility] ([phone]) or report to the closest Emergency Room. Call 911 if necessary. 12/05/242033 <Electronically signed by Janes Lara MD> Cosigner Signature (if applicable): CC: Dr. Regino Diaz DO ~ Signed [facility] [place] Work Phone: [phone] 308-802503-20-2025 History and physical note Author Tomas [facility] Note Date/Time October 19, 2024 12: 31pm [facility] [address] [place] [address] H&P Exam - Wound Care 10/19/24 1123 MR#: [id number] Acct: [id number] Name: REGINO BONILLA Rep #:[id number] : 1955 69 From: Tomas porras DPM PCP: Dr. 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 Patient stated he was referred by his PCP Dr. Diaz. He has PMHx of chronic venous insufficiency, edema lower extremity, history of ulcerations to bilateral foot, PVD, and ALYSSA. Reports that this left hallux has been callused for many years but is now started to develop bruising/bleeding below the skin. He has had previous ulceration of the site in the past. Also reports that he has pain at the fifth metatarsal base to both feet due to excessive prominence of the styloid process. He does state that he sees [facility] and he undergoes debridement of hyperkeratosis in office. Patient denies wearing offloading inserts as he states they are too uncomfortable. He is noted to be wearing tighter fitting hiking boots. He denies any trauma to to the toe and denies drainage from toe. He denies being diabetic. Denies N/V/F/chills. Denies further complaints. [facility] Medical History Wears glasses Bone spur of foot Loss of hearing Anxiety Marijuana use Arthritis Syncope Heartburn Former smoker COPD (chronic obstructive pulmonary disease) CPAP (continuous positive airway pressure) dependence Leg cramps History of edema History of pain when walking Raynaud disease Neuropathy Home Medications ?Medication ?Instructions ?Recorded ?Last Taken ?Type multivitamin (Daily Multi-Vitamin 1 tab PO DAILY 06/0709/05/23 History tablet) turmeric 100 mg-carlos 150 1 cap PO DAILY 06/07/2311/23 History mg-olive 50 mg-oreg 150 mg-capryl capsule omega-3 fatty acids-fish oil 360 1 cap PO DAILY 09/05/23 History mg-1,200 mg capsule (Fish Oil) polyethylene glycol 3350 17 4 g PO DAILY PRN constipat ion 08/20/23 Unknown History gram/dose oral powder (Miralax) gabapentin 400 mg capsule 400 mg PO DAILY 05/23/24 Unk nown History fluticasone propionate 50 1 spray intranasal BID nasal 06/18/24 Unknown Rx mcg/actuation nasal congestion #16 grams spray,suspension Allergy/AdvReac Type Severity Reaction Status Date / Time grass pollen Allergy runny nose Verified 10/08/24 18:54 Family History Father Diabetes ALYSSA (obstructive sleep apnea) Surgical History Hx of colonoscopy Hx of LASIK Hx of oral surgery Hx of right cataract extraction Hx of left cataract extraction Hx of appendectomy Social History household members: none current occupational status: retired Smoking Status: Never smoker second hand exposure: No alcohol intake: current alcohol intake frequency: a few times a week details: stopped drinking one year ago substance use type: does not use what type of physical activity do you participate in: walking and bicycling anam/voodoo: Holiness ROS Constitutional Constitutional: Denies anorexia, chills, fatigue or fever(s) Eyes Eyes: Denies blurry vision, change in vision or double vision ENT HEENT: Denies dysphagia, nasal congestion, nasal discharge or sore throat Cardiovascular Cardiovascular: Denies chest pain, claudication or palpitations Respiratory/Chest Respiratory/Chest: Denies cough, shortness of breath at rest or wheezing Gastrointestinal Gastrointestinal: Denies abdominal pain, constipation, diarrhea, nausea or vomiting Genitourinary Genitourinary: Denies dysuria, hematuria or urinary urgency Musculoskeletal Musculoskeletal: Denies joint pain, joint stiffness or joint swelling Integumentary Integumentary: Denies lesions, pruritus or rash Neurologic Neurologic: Denies dizziness, numbness or seizures Psychiatric Psychiatric: Denies anxiety or depression Endocrine Endocrinology: Denies cold intolerance, heat intolerance, polydipsia or polyuria Hematologic/Lymphatic Hematologic/Lymphatic: Denies easy bleeding or easy bruising Vital Signs Vital Signs Vital Signs: 10/19/24 10:23 Temperature 96.7 F L Temperature Source Temporal Pulse Rate 62 Respiratory Rate 18 Blood Pressure 137/73 H Blood Pressure Mean 94 Blood Pressure Source Monitor Blood Pressure Position Semi-Fowlers Blood Pressure Location Left Arm Oxygen Delivery Method Room Air Physical Exam Const alert, oriented x3 and no apparent distress General Appearance: cooperative HEENT normocephalic Eyes General Eye: normal appearance of both eyes Neck General: normal visual inspection Lymph Lymphatic: no lymphadenopathy noted and no lymphedema noted Resp normal respiratory effort Cardio regular rate and regular rhythm Extremity no calf tenderness and no pedal edema Extremity Narrative: Left lower extremity: Vascular: DP and PT pulses weakly palpable. CFT less than 5 seconds to digits. Normal temperature gradient. Hair growth is diminished to digits. Neurologic: There is decreased protective sensation to the foot with 5.07g [place] monofilament. Musculoskeletal: Muscle strength 5 of 5 age-appropriate. There is decreased range of motion of the ankle joint dorsiflexion with the knee extended without pain or crepitus. There is prominent styloid process/base of fifth metatarsal noted. Does have tenderness to palpation. There is hyperkeratosis about the site secondary to pressure. Decreased range of motion of the first metatarsophalangeal joint dorsiflexion without pain or crepitus with foot unloaded and further reduction of motion with foot loaded consistent with a functional halluxlimitus. Normal range of motion of the interphalangeal joint. Dermatologic: Skin does appear healthy with normal turgor. Does have hyperkeratosis about the base of the fifth metatarsal as stated above. There isalso excessive hyper keratosis with subdermal hemorrhaging at the plantar aspectof the interphalangeal joint secondary to his hallux limitus. No signs of infection. Right lower extremity: Vascular: DP and PT pulses weakly palpable. CFT less than 5 seconds to digits. Normal temperature gradient. Hair growth is diminished to digits. Neurologic: There is decreased protective sensation to the foot with 5.07g [place] monofilament. Musculoskeletal: Muscle strength 5 of 5 age-appropriate. There is decreased range of motion of the ankle joint dorsiflexion with the knee extended without pain or crepitus. There is prominent styloid process/base of fifth metatarsal noted. Does have tenderness to palpation. There is hyperkeratosis about the site secondary to pressure. Dermatologic: Skin does appear healthy with normal turgor. Does have hyperkeratosis about the base of the fifth metatarsal as stated above. Skin no rashes or lesions noted Neuro moves all extremities Debridement Note Debridement Note Wound debrided: Left hallux IPJ Laterality: Left Wound Grade/Stage: Omalley stage I Type of Debridement: Excisional debridement Anesthesia Used: 5% Lidocaine Gel Depth: Down to and including healthy tissue and in the subcutaneous layer Percentage of wound debrided: 100 Instrument Used: #15 blade and - (313 blade) Tissue Removed: Fibrous, devitalized subcutaneous, biofilm, slough Severity: Fat Layer Exposed Amount of bleeding with debridement: Mild (Scant amount of bleeding) Bleeding Controlled with: Compression and gauze Patient tolerated procedure: Patient tolerated procedure well Post-Debridement Measurements and Additional Note: Post-Debridement Measurements/Treatment - Nurse 1 - General Ulcer Assessment Start: 10/19/24 10:23 Freq: Status: Active Protocol: MATTHEW Activity Type Activity Date Activity User E-sign Co-sign Detail Recorded Client Recorded Date Recorded By Document 10/19/24 10:23 [place] [id number] 10/19/24 10:29 10/19/24 10:23 WC - Today's Visit Information Type of service Initial Visit Arrival Mode Ambulatory Patient Identification Verified (Name & Yes ) Vital Signs Temperature (97.8 F-99.1 F) 96.7 F L Temperature Source Temporal Pulse Rate (60-100) 62 Pulse Location Monitor Respiratory Rate (12-18) 18 Respiratory rate source Observation Oxygen Delivery Method Room Air Blood Pressure (90/60-120/80) 137/73 H Blood Pressure Mean 94 Source Monitor Position Semi-Fowlers Blood Pressure Location Left Arm History Since Last Visit- (Skip if this is Patient's initial visit) Left Footwear Regular Shoe Right Footwear Regular Shoe Pain Scale: 0-10 Numeric Is Patient Pain Free? Yes - Nurse 1 - General Ulcer Measurement Start: 10/19/24 10:23 Freq: Status: Active Protocol: Activity Type Activity Date Activity User E-sign Co-sign Detail Recorded Client Recorded Date Recorded By Document 10/19/24 10:23 KW [id number] 10/19/24 10:29 10/19/24 10:23 Wound Center Nurse 1 7 LT GREAT TOE -Current Size (cm) - Length 0.1 -Current Size (cm) - Width 0.1 -Current Size (cm) - Depth 0 -Total Square Cm 0.01 -Date of Last Picture (Recall this 10/19/24 field) -Exudate Amt None Present -Granulation Amt None Present (0 %) -Texture (Rocio-wound Skin Appearance) Assessed,Callus -Moisture (Rocio-wound Skin Appearance) Assessed -Color (Rocio-wound Skin Appearance) Assessed -Temperature (Rocio-wound Skin No Abnormality Appearance) (Pt Warm) -Tenderness on Palpation (Rocio-wound No Skin Appearance) -Ulcer Cleansing Rinsed/ Irrigated with Saline -Foul Odor after Cleansing No -Anesthetic Used 5% Lidocaine Gel - Nurse 2 - General Ulcer CM Notes Start: 10/19/24 10:23 Freq: Status: Active Protocol: Activity Type Activity Date Activity User E-sign Co-sign Detail Recorded Client Recorded Date Recorded By Document 10/19/24 10:42 [facility] [id number] 10/19/24 10:55 [facility] 10/19/24 10:42 Wound Center Nurse 2 -Time 10:42 -Correct Patient Yes -Correct Side, Site, Position Yes -Correct Procedure Yes -Procedure Performed Yes -Type of Procedure Debridement -Clinical Debridement Subcutaneous -Tissue Removed Subcutaneous -Post Debridement (cm) - Length 0.1 -Post Debridement (cm) - Width 0.1 -Post Debridement (cm) - Depth 0.1 -Total Square (Post) (cm) 0.01 -Area of Debridement (cm) - Length 0.1 -Area of Debridement (cm) - Width 0.1 -Total Square (Area) (cm) 0.01 -Tunneling No -Undermining/Tunneling No -Circular Undermining No -Wound/Ulcer Outcome Not Healed -Ulcer Cleansing Rinsed/ Irrigated with Saline -Foul Odor after Cleansing No -Bioengineered Tissue No -Bleeding Controlled with Pressure -Treatment Response Procedure Tolerated Well -Debridement - Subq, 1st 20sq cm Yes Pain Scale: 0-10 Numeric Is Patient Pain Free? Yes - Nurse 3 - General Ulcer D/C NN Start: 10/19/24 10:23 Freq: Status: Active Protocol: Activity Type Activity Date Activity User E-sign Co-sign Detail Recorded Client Recorded Date Recorded By Document 10/19/24 11:02 DL [id number] 10/19/24 11:03 DL 10/19/24 11:02 Wound Care Center Nurse 3 7 LT GREAT TOE -Ulcer Cleansing Rinsed/ Irrigated with Saline -Other Covering BANDAID Treatment Response Procedure Tolerated Well Pain Scale: 0-10 Numeric Is Patient Pain Free? Yes - Visit Discharge Discharge Condition Stable Ambulatory Status Ambulatory Transportation Private Auto Assessment/Plan Assessment/Plan (1) Non-pressure chronic ulcer of other part of left foot with fat layer exposed: CODE(S): L97.522 - Non-pressure chronic ulcer of other part of left foot with fat layer exposed (2) Hallux limitus of left foot: CODE(S): M20.5X2 - Other deformities of toe(s) (acquired), left foot (3) Venous insufficiency (chronic) (peripheral): CODE(S): I87.2 - Venous insufficiency (chronic) (peripheral) (4) Type 2 diabetes mellitus with diabetic polyneuropathy: CODE(S): E11.42 - Type 2 diabetes mellitus with diabetic polyneuropathy PLAN: Plan Patient seen and evaluated Predebridement measurement: Hyperkeratosis with subdermal hemorrhaging Site underwent debridement as noted in the clinical panel above. Postdebridement measurement 0.1 cm x 0.1 cm x 0.1 cm. Antibiotic ointment and Band-Aid applied to site. Discussed continuing to pad and protect with Band-Aidin addition to offloading of the first metatarsal phalangeal joint. 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 He will continue to wear the offloading insert at all times for sufficient offloading ofthe interphalangeal joint. Discussed his ulceration is secondary to functional hallux limitus. Biomechanics and etiology have been discussed. Discussed continued diet for glycemic control and to aid in wound healing. He was instructed to continue to wear shoes at all times of ambulation and to avoid barefoot ambulation, this includes sock. He is understanding of this. Discussed continued padding and protecting of his prominent styloid process/baseof fifth metatarsal of each foot to prevent ulceration. Discussed signs and symptoms of infection. Discussed if he gets increasing redness around the ulcerative site that moves up the toe onto the foot, purulentdrainage from the ulcerative site, increasing foul odor from the ulcer site, or if he experiences fever greater than 101 degrees accompanied by nausea, vomiting, chills and later signs of a progressing infection and he should report to the ED for IV antibiotics and further evaluation. He is understanding of this. Will return to wound care center in 2 weeks or sooner for any questions or concerns. 10/19/24 1231 <Electronically signed by Tomas French DPM> Cosigner Signature (if applicable): CC: ~ Signed [facility] [place] Work Phone: [phone] 605-338803-20-2025 History and physical note [facility] [address] [place] [address] H&P Exam - Wound Care 10/19/24 1123 MR#: [id number] Acct: [id number] Name: REGINO BONILLA Rep #:[id number] : 1955 69 From: Tomas porras DPM PCP: Dr. 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 Patient stated he was referred by his PCP Dr. Diaz. He has PMHx of chronic venous insufficiency, edema lower extremity, history of ulcerations to bilateral foot, PVD, and ALYSSA. Reports that this left hallux has been callused for many years but is now started to develop bruising/bleeding below the skin. He has had previousulceration of the site in the past. Also reports that he has pain at the fifth metatarsal base to both feet due to excessive prominence of the styloid process. He does state that he sees [facility] and he undergoes debridement of hyperkeratosis in office. Patient denieswearing offloading inserts as he states they are too uncomfortable. He is noted to be wearing tighter fitting hiking boots. He denies any trauma to to the toe and denies drainage from toe. He denies being diabetic. Denies N/V/F/chills. Denies further complaints. [facility] Medical History Wears glasses Bone spur of foot Loss of hearing Anxiety Marijuana use Arthritis Syncope Heartburn Former smoker COPD (chronic obstructive pulmonary disease) CPAP (continuous positive airway pressure) dependence Leg cramps History of edema History of pain when walking Raynaud disease Neuropathy Home Medications ?Medication ?Instructions ?Recorded ?Last Taken ?Type multivitamin (Daily Multi-Vitamin 1 tab PO DAILY 06/0709/05/23 History tablet) turmeric 100 mg-carlos 150 1 cap PO DAILY 06/07/2311/23 History mg-olive 50 mg-oreg 150 mg-capryl capsule omega-3 fatty acids-fish oil 360 1 cap PO DAILY 09/05/23 History mg-1,200 mg capsule (Fish Oil) polyethylene glycol 3350 17 4 g PO DAILY PRN constipat ion 08/20/23 Unknown History gram/dose oral powder (Miralax) gabapentin 400 mg capsule 400 mg PO DAILY 05/23/24 Unk nown History fluticasone propionate 50 1 spray intranasal BID nasal 06/18/24 Unknown Rx mcg/actuation nasal congestion #16 grams spray,suspension Allergy/AdvReac Type Severity Reaction Status Date / Time grass pollen Allergy runny nose Verified 10/08/24 18:54 Family History Father Diabetes ALYSSA (obstructive sleep apnea) Surgical History Hx of colonoscopy Hx of LASIK Hx of oral surgery Hx of right cataract extraction Hx of left cataract extraction Hx of appendectomy Social History household members: none current occupational status: retired Smoking Status: Never smoker second hand exposure: No alcohol intake: current alcohol intake frequency: a few times a week details: stopped drinking one year ago substance use type: does not use what type of physical activity do you participate in: walking and bicycling anam/voodoo: Holiness ROS Constitutional Constitutional: Denies anorexia, chills, fatigue or fever(s) Eyes Eyes: Denies blurry vision, change in vision or double vision ENT HEENT: Denies dysphagia, nasal congestion, nasal discharge or sore throat Cardiovascular Cardiovascular: Denies chest pain, claudication or palpitations Respiratory/Chest Respiratory/Chest: Denies cough, shortness of breath at rest or wheezing Gastrointestinal Gastrointestinal: Denies abdominal pain, constipation, diarrhea, nausea or vomiting Genitourinary Genitourinary: Denies dysuria, hematuria or urinary urgency Musculoskeletal Musculoskeletal: Denies joint pain, joint stiffness or joint swelling Integumentary Integumentary: Denies lesions, pruritus or rash Neurologic Neurologic: Denies dizziness, numbness or seizures Psychiatric Psychiatric: Denies anxiety or depression Endocrine Endocrinology: Denies cold intolerance, heat intolerance, polydipsia or polyuria Hematologic/Lymphatic Hematologic/Lymphatic: Denies easy bleeding or easy bruising Vital Signs Vital Signs Vital Signs: 10/19/24 10:23 Temperature 96.7 F L Temperature Source Temporal Pulse Rate 62 Respiratory Rate 18 Blood Pressure 137/73 H Blood Pressure Mean 94 Blood Pressure Source Monitor Blood Pressure Position Semi-Fowlers Blood Pressure Location Left Arm Oxygen Delivery Method Room Air Physical Exam Const alert, oriented x3 and no apparent distress General Appearance: cooperative HEENT normocephalic Eyes General Eye: normal appearance of both eyes Neck General: normal visual inspection Lymph Lymphatic: no lymphadenopathy noted and no lymphedema noted Resp normal respiratory effort Cardio regular rate and regular rhythm Extremity no calf tenderness and no pedal edema Extremity Narrative: Left lower extremity: Vascular: DP and PT pulses weakly palpable. CFT less than 5 seconds to digits. Normal temperature gradient. Hair growth is diminished to digits. Neurologic: There is decreased protective sensation to the foot with 5.07g [place] monofilament. Musculoskeletal: Muscle strength 5 of 5 age-appropriate. There is decreased range of motion of the ankle joint dorsiflexion with the knee extended without pain or crepitus. There is prominent styloidprocess/base of fifth metatarsal noted. Does have tenderness to palpation. There is hyperkeratosis about the site secondary to pressure. Decreased range of motion of the first metatarsophalangeal joint dorsiflexion without pain or crepitus with foot unloaded and further reduction of motion with foot loaded consistent with a functional halluxlimitus. Normal range of motion of the interphalangeal joint. Dermatologic: Skin does appear healthy with normal turgor. Does have hyperkeratosis about the base of the fifth metatarsal as stated above. There isalso excessive hyper keratosis with subdermal hemorrhaging at the plantar aspectof the interphalangeal joint secondary to his hallux limitus. No signs of infection. Right lower extremity: Vascular: DP and PT pulses weakly palpable. CFT less than 5 seconds to digits. Normal temperature gradient. Hair growth is diminished to digits. Neurologic: There is decreased protective sensation to the foot with 5.07g [place] monofilament. Musculoskeletal: Muscle strength 5 of 5 age-appropriate. There is decreased range of motion of the ankle joint dorsiflexion with the knee extended without pain or crepitus. There is prominent styloidprocess/base of fifth metatarsal noted. Does have tenderness to palpation. There is hyperkeratosis about the site secondary to pressure. Dermatologic: Skin does appear healthy with normal turgor. Does have hyperkeratosis about the base of the fifth metatarsal as stated above. Skin no rashes or lesions noted Neuro moves all extremities Debridement Note Debridement Note Wound debrided: Left hallux IPJ Laterality: Left Wound Grade/Stage: [place]malley stage I Type of Debridement: Excisional debridement Anesthesia Used: 5% Lidocaine Gel Depth: Down to and including healthy tissue and in the subcutaneous layer Percentage of wound debrided: 100 Instrument Used: #15 blade and - (313 blade) Tissue Removed: Fibrous, devitalized subcutaneous, biofilm, slough Severity: Fat Layer Exposed Amount of bleeding with debridement: Mild (Scant amount of bleeding) Bleeding Controlled with: Compression and gauze Patient tolerated procedure: Patient tolerated procedure well Post-Debridement Measurements and Additional Note: Post-Debridement Measurements/Treatment WC - Nurse 1 - General Ulcer Assessment Start: 10/19/24 10:23 Freq: Status: Active Protocol: MATTHEW Activity Type Activity Date Activity User E-sign Co-sign Detail Recorded Client Recorded Date Recorded By Document 10/19/24 10:23 [employer] [id number] 10/19/24 10:29 KW 10/19/24 10:23 WC - Today's Visit Information Type of service Initial Visit Arrival Mode Ambulatory Patient Identification Verified (Name & Yes ) Vital Signs Temperature (97.8 F-99.1 F) 96.7 F L Temperature Source Temporal Pulse Rate (60-100) 62 Pulse Location Monitor Respiratory Rate (12-18) 18 Respiratory rate source Observation Oxygen Delivery Method Room Air Blood Pressure (90/60-120/80) 137/73 H Blood Pressure Mean 94 Source Monitor Position Semi-Fowlers Blood Pressure Location Left Arm History Since Last Visit- (Skip if this is Patient's initial visit) Left Footwear Regular Shoe Right Footwear Regular Shoe Pain Scale: 0-10 Numeric Is Patient Pain Free? Yes - Nurse 1 - General Ulcer Measurement Start: 10/19/24 10:23 Freq: Status: Active Protocol: Activity Type Activity Date Activity User E-sign Co-sign Detail Recorded Client Recorded Date Recorded By Document 10/19/24 10:23 KW [id number] 10/19/24 10:29 KW 10/19/24 10:23 Wound Center Nurse 1 7 LT GREAT TOE -Current Size (cm) - Length 0.1 -Current Size (cm) - Width 0.1 -Current Size (cm) - Depth 0 -Total Square Cm 0.01 -Date of Last Picture (Recall this 10/19/24 field) -Exudate Amt None Present -Granulation Amt None Present (0 %) -Texture (Rocio-wound Skin Appearance) Assessed,Callus -Moisture (Rocio-wound Skin Appearance) Assessed -Color (Rcoio-wound Skin Appearance) Assessed -Temperature (Rocio-wound Skin No Abnormality Appearance) (Pt Warm) -Tenderness on Palpation (Rocio-wound No Skin Appearance) -Ulcer Cleansing Rinsed/ Irrigated with Saline -Foul Odor after Cleansing No -Anesthetic Used 5% Lidocaine Gel WC - Nurse 2 - General Ulcer CM Notes Start: 10/19/24 10:23 Freq: Status: Active Protocol: Activity Type Activity Date Activity User E-sign Co-sign Detail Recorded Client Recorded Date Recorded By Document 10/19/24 10:42 [facility] [id number] 10/19/24 10:55 [facility] 10/19/24 10:42 Wound Center Nurse 2 -Time 10:42 -Correct Patient Yes -Correct Side, Site, Position Yes -Correct Procedure Yes -Procedure Performed Yes -Type of Procedure Debridement -Clinical Debridement Subcutaneous -Tissue Removed Subcutaneous -Post Debridement (cm) - Length 0.1 -Post Debridement (cm) - Width 0.1 -Post Debridement (cm) - Depth 0.1 -Total Square (Post) (cm) 0.01 -Area of Debridement (cm) - Length 0.1 -Area of Debridement (cm) - Width 0.1 -Total Square (Area) (cm) 0.01 -Tunneling No -Undermining/Tunneling No -Circular Undermining No -Wound/Ulcer Outcome Not Healed -Ulcer Cleansing Rinsed/ Irrigated with Saline -Foul Odor after Cleansing No -Bioengineered Tissue No -Bleeding Controlled with Pressure -Treatment Response Procedure Tolerated Well -Debridement - Subq, 1st 20sq cm Yes Pain Scale: 0-10 Numeric Is Patient Pain Free? Yes WC - Nurse 3 - General Ulcer D/C NN Start: 10/19/24 10:23 Freq: Status: Active Protocol: Activity Type Activity Date Activity User E-sign Co-sign Detail Recorded Client Recorded Date Recorded By Document 10/19/24 11:02 DL [id number] 10/19/24 11:03 DL 10/19/24 11:02 Wound Care Center Nurse 3 7 LT GREAT TOE -Ulcer Cleansing Rinsed/ Irrigated with Saline -Other Covering BANDAID Treatment Response Procedure Tolerated Well Pain Scale: 0-10 Numeric Is Patient Pain Free? Yes WC - Visit Discharge Discharge Condition Stable Ambulatory Status Ambulatory Transportation Private Auto Assessment/Plan Assessment/Plan (1) Non-pressure chronic ulcer of other part of left foot with fat layer exposed: CODE(S): L97.522 - Non-pressure chronic ulcer of other part of left foot with fat layer exposed (2) Hallux limitus of left foot: CODE(S): M20.5X2 - Other deformities of toe(s) (acquired), left foot (3) Venous insufficiency (chronic) (peripheral): CODE(S): I87.2 - Venous insufficiency (chronic) (peripheral) (4) Type 2 diabetes mellitus with diabetic polyneuropathy: CODE(S): E11.42 - Type 2 diabetes mellitus with diabetic polyneuropathy PLAN: Plan Patient seen and evaluated Predebridement measurement: Hyperkeratosis with subdermal hemorrhaging Site underwent debridement as noted in the clinical panel above. Postdebridement measurement 0.1 cmx 0.1 cm x 0.1 cm. Antibiotic ointment and Band-Aid applied to site. Discussed continuing to pad and protect with Band-Aidin addition to offloading of the first metatarsal phalangeal joint. 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 He will continue to wear the offloading insert at all times for sufficient offloading ofthe interphalangeal joint. Discussed his ulceration is secondary to functional hallux limitus. Biomechanics and etiology have been discussed. Discussed continued diet for glycemic control and to aid in wound healing. He was instructed to continue to wear shoes at all times of ambulation and to avoid barefoot ambulation, this includes sock. He is understanding of this. Discussed continued padding and protecting of his prominent styloid process/baseof fifth metatarsalof each foot to prevent ulceration. Discussed signs and symptoms of infection. Discussed if he gets increasing redness around the ulcerative site that moves up the toe onto the foot, purulentdrainage from the ulcerative site, increasing foul odor from the ulcer site, or if he experiences fever greater than 101 degrees accompanied by nausea, vomiting, chills and later signs of a progressing infection and he should report to the ED for IV antibiotics and further evaluation. He is understanding of this. Will return to wound care center in 2 weeks or sooner for any questions or concerns. 10/19/24 1231 Cosigner Signature (if applicable): CC: ~ Signed [facility] [place]03-09-2025 Discharge summary [facility] Medical Records Department [address] [place] [address] Emergency Department Summary 10/08/24 MR#: [id number] Acct: [id number] Name: REGINO BONILLA Rep #:[id number] : 1955 69 From: Lenny Olivia MD PCP: Dr. Regino Diaz, Status:REG ER Location: ED HPI HPI - URI History of Present Illness Chief Complaint: Other, Pain/Inj Informant: patient Narrative Narrative: 69-year-old male presents with rhinorrhea and postnasal drip symptoms causing him to spit out his rhinorrhea often which she states is annoying. He states hewas diagnosed with a sinus infection and prescribed antibiotics, he states this is the third week of symptoms, he has already taken Augmentin and he has not on open new 10-day course of Augmentin that he is getting ready to start. He does nothave any new symptoms. He denies any fevers or chills. He has an occasional mild cough but he denies any chest symptoms or dyspnea. He denies any facial pain or significant headaches. ROS ROS ED Constitutional Constitutional ED: Denies chills or fever(s) Eyes Eyes: Denies change in vision ENT ENT ED: Reports nasal congestion and rhinorrhea; Denies abnormal hearing, dizziness, headache(s), nose pain, otalgia, sinus pain, sinus pressure, sore throat, tongue swelling or vertigo Cardiovascular Cardiovascular: Denies chest pain or palpitations Respiratory/Chest Respiratory/Chest: Reports cough; Denies dyspnea Gastrointestinal Gastrointestinal: Denies abdominal pain, diarrhea, nausea or vomiting Genitourinary Genitourinary ED: Denies dysuria or hematuria Musculoskeletal Musculoskeletal: Denies myalgias or neck pain Integumentary Denies abscess or rash Neurologic Neurologic: Denies headache(s), paresthesias or weakness Psychiatric Psychiatric: Denies depression or suicidal thoughts Endocrine Endocrinology: Denies polydipsia or polyuria PFSH PFSH Medical History Wears glasses Bone spur of foot Loss of hearing Anxiety Marijuana use Arthritis Syncope Heartburn Former smoker COPD (chronic obstructive pulmonary disease) CPAP (continuous positive airway pressure) dependence Leg cramps History of edema History of pain when walking Raynaud disease Neuropathy Home Medications ?Medication ?Instructions ?Recorded ?Last Taken ?Type multivitamin (Daily Multi-Vitamin 1 tab PO DAILY 06/0709/05/23 History tablet) turmeric 100 mg-carlos 150 1 cap PO DAILY 06/07/2311/23 History mg-olive 50 mg-oreg 150 mg-capryl capsule omega-3 fatty acids-fish oil 360 1 cap PO DAILY 09/05/23 History mg-1,200 mg capsule (Fish Oil) polyethylene glycol 3350 17 4 g PO DAILY PRN constipat ion 08/20/23 Unknown History gram/dose oral powder (Miralax) gabapentin 400 mg capsule 400 mg PO DAILY 05/23/24 Unk nown History fluticasone propionate 50 1 spray intranasal BID nasal 06/18/24 Unknown Rx mcg/actuation nasal congestion #16 grams spray,suspension Allergy/AdvReac Type Severity Reaction Status Date / Time grass pollen Allergy runny nose Verified 10/08/24 18:54 Family History Father Diabetes ALYSSA (obstructive sleep apnea) Surgical History Hx of colonoscopy Hx of LASIK Hx of oral surgery Hx of right cataract extraction Hx of left cataract extraction Hx of appendectomy Social History household members: none current occupational status: retired Smoking Status: Never smoker second hand exposure: No alcohol intake: current alcohol intake frequency: a few times a week details: stopped drinking one year ago substance use type: does not use what type of physical activity do you participate in: walking and bicycling anam/voodoo: Holiness EXAM Physical Exam Const Vital Signs: 10/08/24 18:52 Temperature 98.2 F Temperature Source Temporal Pulse Rate 78 Respiratory Rate 15 Blood Pressure 157/75 H Blood Pressure Mean 102 Pulse Ox 100 Oxygen Delivery Method Room Air Positive well nourished and well developed Constitutional Narrative: Well-appearing in no distress General Appearance ED: well developed and NAD HEENT Reports moist mucous membranes HEENT Narrative: No sinus tenderness anywhere. No active nasal discharge of any type or nasal turbinate edema. Posterior pharynx is normal and clear. normocephalic and atraumatic Throat: Negative for posterior oropharynx abnormal Eyes PERRL and EOMs intact bilaterally Neck no lymphadenopathy, supple and no meningeal signs Resp normal respiratory effort and clear to auscultation bilaterally Cardio no murmurs Rate: regular rate Rhythm: regular rhythm Neuro oriented x3, CN's II-XII intact bilaterally and no sensory deficits noted Sensorium / Orientation: alert Motor Exam: strength 5/5 throughout Skin Lesions: no lesions Rashes: no rashes MDM MDM MDM Narrative Medical decision making narrative: I reassured patient, he does not have symptoms or exam findings of sinusitis. He is probably not better because this is not a bacterial infection. He states sometimes the rhinorrhea is green or yellow. It is possible he has a cold, it is possible this is allergies to something in his home. He has fluticasone nasal spray at home, but he does not use it regularly advised that he try that for a weekbefore he decides it does not help, but I advised him not to take thenew antibiotic as I do not think it is indicated based on what I am seeing. However, it may have been prescribed to him for reasons that I am not aware of, so I advised him to follow-up with his doctor who prescribed it for reevaluation. Discharge Plan Triage Chief Complaint: Other, Pain/Inj ED Provider: Lenny Olivia Dx/Rx/DC Orders Clinical Impression: Postnasal drip Instructions: ED Allergic Rhinitis Prescriptions: Continued omega-3 fatty acids-fish oil [Fish Oil] 360-1,200 mg capsule 1 cap PO DAILY polyethylene glycol 3350 [Miralax] 17 gram/dose powder 4 g PO DAILY PRN (Reason: constipation) multivitamin [Daily Multi-Vitamin] Tablet 1 tab PO DAILY hpnenudi-zhme-empqj-oreg-capry 100 mg-150 mg- 50 mg-150 mg capsule 1 cap PO DAILY fluticasone propionate 50 mcg/actuation spray,suspension 1 spray intranasal BID Qty: 16 0RF Rx Instructions: administer into each nostril gabapentin 400 mg capsule 400 mg PO DAILY Discontinued amoxicillin-pot clavulanate 875-125 mg tablet 1 tab PO BID Qty: 20 0RF Primary Care Provider: Regino Diaz Referrals: Regino Diaz DO [Primary Care Provider] - 1 Week if not improving Print Language: Sudanese Disposition Disposition: Home, Self Care What to do if you have Problems For any increased pain, shortness of breath, bleeding, nausea or vomiting, chestpain, or any unexpected problems, contact your Primary Care Provider. Call [facility] ([phone]) or report tothe closest Emergency Room. Call 911 if necessary. 10/08/241911 Cosigner Signature (if applicable): CC: Dr. Regino Diaz DO ~ Signed [facility] [place]03-09-2025 Discharge summary Author Lenny Olivia [facility] Note Date/Time October 08, 2024 7:12 pm [facility] Medical Records Department [address] [place] [address] Emergency Department Summary 10/08/24 MR#: [id number] Acct: [id number] Name: REGINO BONILLA Rep #:[id number] : 1955 69 From: Lenny Olivia MD PCP: Dr. Regino Diaz DO Status:REG ER Location: ED HPI HPI - URI History of Present Illness Chief Complaint: Other, Pain/Inj Informant: patient Narrative Narrative: 69-year-old male presents with rhinorrhea and postnasal drip symptoms causing him to spit out his rhinorrhea often which she states is annoying. He states hewas diagnosed with a sinus infection and prescribed antibiotics, he states this is the third week of symptoms, he has already taken Augmentin and he has not on open new 10-day course of Augmentin that he is getting ready to start. He does not have any new symptoms. He denies any fevers or chills. He has an occasional mild cough but he denies any chest symptoms or dyspnea. He denies any facial pain or significant headaches. ROS ROS ED Constitutional Constitutional ED: Denies chills or fever(s) Eyes Eyes: Denies change in vision ENT ENT ED: Reports nasal congestion and rhinorrhea; Denies abnormal hearing, dizziness, headache(s), nose pain, otalgia, sinus pain, sinus pressure, sore throat, tongue swelling or vertigo Cardiovascular Cardiovascular: Denies chest pain or palpitations Respiratory/Chest Respiratory/Chest: Reports cough; Denies dyspnea Gastrointestinal Gastrointestinal: Denies abdominal pain, diarrhea, nausea or vomiting Genitourinary Genitourinary ED: Denies dysuria or hematuria Musculoskeletal Musculoskeletal: Denies myalgias or neck pain Integumentary Denies abscess or rash Neurologic Neurologic: Denies headache(s), paresthesias or weakness Psychiatric Psychiatric: Denies depression or suicidal thoughts Endocrine Endocrinology: Denies polydipsia or polyuria PFSH PFS Medical History Wears glasses Bone spur of foot Loss of hearing Anxiety Marijuana use Arthritis Syncope Heartburn Former smoker COPD (chronic obstructive pulmonary disease) CPAP (continuous positive airway pressure) dependence Leg cramps History of edema History of pain when walking Raynaud disease Neuropathy Home Medications ?Medication ?Instructions ?Recorded ?Last Taken ?Type multivitamin (Daily Multi-Vitamin 1 tab PO DAILY 06/0709/05/23 History tablet) turmeric 100 mg-carlos 150 1 cap PO DAILY 06/07/2311/23 History mg-olive 50 mg-oreg 150 mg-capryl capsule omega-3 fatty acids-fish oil 360 1 cap PO DAILY 09/05/23 History mg-1,200 mg capsule (Fish Oil) polyethylene glycol 3350 17 4 g PO DAILY PRN constipat ion 08/20/23 Unknown History gram/dose oral powder (Miralax) gabapentin 400 mg capsule 400 mg PO DAILY 05/23/24 Unk nown History fluticasone propionate 50 1 spray intranasal BID nasal 06/18/24 Unknown Rx mcg/actuation nasal congestion #16 grams spray,suspension Allergy/AdvReac Type Severity Reaction Status Date / Time grass pollen Allergy runny nose Verified 10/08/24 18:54 Family History Father Diabetes ALYSSA (obstructive sleep apnea) Surgical History Hx of colonoscopy Hx of LASIK Hx of oral surgery Hx of right cataract extraction Hx of left cataract extraction Hx of appendectomy Social History household members: none current occupational status: retired Smoking Status: Never smoker second hand exposure: No alcohol intake: current alcohol intake frequency: a few times a week details: stopped drinking one year ago substance use type: does not use what type of physical activity do you participate in: walking and bicycling anam/voodoo: Holiness EXAM Physical Exam Const Vital Signs: 10/08/24 18:52 Temperature 98.2 F Temperature Source Temporal Pulse Rate 78 Respiratory Rate 15 Blood Pressure 157/75 H Blood Pressure Mean 102 Pulse Ox 100 Oxygen Delivery Method Room Air Positive well nourished and well developed Constitutional Narrative: Well-appearing in no distress General Appearance ED: well developed and NAD HEENT Reports moist mucous membranes HEENT Narrative: No sinus tenderness anywhere. No active nasal discharge of any type or nasal turbinate edema. Posterior pharynx is normal and clear. normocephalic and atraumatic Throat: Negative for posterior oropharynx abnormal Eyes PERRL and EOMs intact bilaterally Neck no lymphadenopathy, supple and no meningeal signs Resp normal respiratory effort and clear to auscultation bilaterally Cardio no murmurs Rate: regular rate Rhythm: regular rhythm Neuro oriented x3, CN's II-XII intact bilaterally and no sensory deficits noted Sensorium / Orientation: alert Motor Exam: strength 5/5 throughout Skin Lesions: no lesions Rashes: no rashes MDM MDM MDM Narrative Medical decision making narrative: I reassured patient, he does not have symptoms or exam findings of sinusitis. He is probably not better because this is not a bacterial infection. He states sometimes the rhinorrhea is green or yellow. It is possible he has a cold, it is possible this is allergies to something in his home. He has fluticasone nasal spray at home, but he does not use it regularly advised that he try that for a week before he decides it does not help, but I advised him not to take thenew antibiotic as I do not think it is indicated based on what I am seeing. However, it may have been prescribed to him for reasons that I am not aware of, so I advised him to follow-up with his doctor who prescribed it for reevaluation. Discharge Plan Triage Chief Complaint: Other, Pain/Inj ED Provider: Lenny Olivia Dx/Rx/DC Orders Clinical Impression: Postnasal drip Instructions: ED Allergic Rhinitis Prescriptions: Continued omega-3 fatty acids-fish oil [Fish Oil] 360-1,200 mg capsule 1 cap PO DAILY polyethylene glycol 3350 [Miralax] 17 gram/dose powder 4 g PO DAILY PRN (Reason: constipation) multivitamin [Daily Multi-Vitamin] Tablet 1 tab PO DAILY fsoxcgwn-npyl-qvrkr-oreg-capry 100 mg-150 mg- 50 mg-150 mg capsule 1 cap PO DAILY fluticasone propionate 50 mcg/actuation spray,suspension 1 spray intranasal BID Qty: 16 0RF Rx Instructions: administer into each nostril gabapentin 400 mg capsule 400 mg PO DAILY Discontinued amoxicillin-pot clavulanate 875-125 mg tablet 1 tab PO BID Qty: 20 0RF Primary Care Provider: Regino Diaz Referrals: Regino Diaz DO [Primary Care Provider] - 1 Week if not improving Print Language: Sudanese Disposition Disposition: Home, Self Care What to do if you have Problems For any increased pain, shortness of breath, bleeding, nausea or vomiting, chestpain, or any unexpected problems, contact your Primary Care Provider. Call [facility] ([phone]) or report to the closest Emergency Room. Call 911 if necessary. 10/08/241911 <Electronically signed by Lenny Olivia MD> Cosigner Signature (if applicable): CC: Dr. Regino Diaz DO ~ Signed [facility] [place] Work Phone: 1(594) 298-419403-03-2025 Evaluation note* Diagnosis Onset Date Resolution Status Admit Date Sinusitis acute October 02 10:29am ALYSSA (obstructive sleep apnea) chroni c October 02, 2024 10:29am Hallux limitus of left foot acute October 19, 2024 10:03am 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 left foot with fat layer exposed chronic October 19 10:03am Venous insufficiency (chroni c) (peripheral) chronic October 19, 2024 10:03am Type 2 diabetes mellitus wit h diabetic polyneuropathy ruled-out October 192024 10:03am [facility] [place] Work Phone: 1([phone]) 869-732703-03-2025 Evaluation note* Diagnosis Onset Date Resolution Status Admit Date Sinusitis acute October 02 10:29am ALYSSA (obstructive sleep apnea) chroni c October 02, 2024 10:29am Hallux limitus of left foot acute October 19, 2024 10:03am 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 left foot with fat layer exposed chronic October 19 10:03am Venous insufficiency (chroni c) (peripheral) chronic October 19, 2024 10:03am Type 2 diabetes mellitus wit h diabetic polyneuropathy ruled-out October 192024 10:03am Hallux limitus of left foot acute November 16, 2024 10:45am 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 left foot with fat layer exposed chronic November 16 10:45am Venous insufficiency (chroni c) (peripheral) chronic November 16, 2024 10:45am Type 2 diabetes mellitus wit h diabetic polyneuropathy ruled-out November 162024 10:45am [facility] [place] Work Phone: [phone] 628-362403-03-2025 Evaluation note* Diagnosis Onset Date Resolution Status Admit Date Sinusitis acute October 02 10:29am ALYSSA (obstructive sleep apnea) chroni c October 02, 2024 10:29am Hallux limitus of left foot acute October 19, 2024 10:03am 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 left foot with fat layer exposed chronic October 19 10:03am Venous insufficiency (chroni c) (peripheral) chronic October 19, 2024 10:03am Type 2 diabetes mellitus wit h diabetic polyneuropathy ruled-out October 192024 10:03am Hallux limitus of left foot acute November 16, 2024 10:45am 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 left foot with fat layer exposed chronic November 16 10:45am Venous insufficiency (chroni c) (peripheral) chronic November 16, 2024 10:45am Type 2 diabetes mellitus wit h diabetic polyneuropathy ruled-out November 162024 10:45am 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 right foot with fat layer exposed resolved December 13, 2024 10:32am [facility] [place] Work Phone: [phone] 448-328203-03-2025 Evaluation note* Diagnosis Onset Date Resolution Status Admit Date Sinusitis acute October 02 10:29am ALYSSA (obstructive sleep apnea) chroni c October 02, 2024 10:29am Hallux limitus of left foot acute October 19, 2024 10:03am 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 left foot with fat layer exposed chronic October 19 10:03am Venous insufficiency (chroni c) (peripheral) chronic October 19, 2024 10:03am Type 2 diabetes mellitus wit h diabetic polyneuropathy ruled-out October 192024 10:03am Hallux limitus of left foot acute November 16, 2024 10:45am 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 left foot with fat layer exposed chronic November 16 10:45am Venous insufficiency (chroni c) (peripheral) chronic November 16, 2024 10:45am Type 2 diabetes mellitus wit h diabetic polyneuropathy ruled-out November 162024 10:45am 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 right foot with fat layer exposed resolved December 27, 2024 10:30am [facility] Work Phone: [phone] 104-913503-03-2025 Evaluation note* Diagnosis Onset Date Resolution Status Admit Date Sinusitis acute October 02 10:29am ALYSSA (obstructive sleep apnea) chroni c October 02, 2024 10:29am Hallux limitus of left foot acute October 19, 2024 10:03am 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 left foot with fat layer exposed chronic October 19 10:03am Venous insufficiency (chroni c) (peripheral) chronic October 19, 2024 10:03am Type 2 diabetes mellitus wit h diabetic polyneuropathy ruled-out October 192024 10:03am Hallux limitus of left foot acute November 16, 2024 10:45am 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 left foot with fat layer exposed chronic November 16 10:45am Venous insufficiency (chroni c) (peripheral) chronic November 16, 2024 10:45am Type 2 diabetes mellitus wit h diabetic polyneuropathy ruled-out Janiya 17 th, 2025 10:45am 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 right foot with fat layer exposed resolved December 27, 2024 10:30am Cognitive impairment acute December 28, 2024 8:09am Neuropathy of both feet chronic M ay 2024 8:09am [facility] [place] Work Phone: 1([phone]) 616-983203-03-2025 Evaluation note* Diagnosis Onset Date Resolution Status Admit Date Sinusitis acute October 02 10:29am ALYSSA (obstructive sleep apnea) chroni c October 02, 2024 10:29am Hallux limitus of left foot acute October 19, 2024 10:03am 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 left foot with fat layer exposed chronic October 19 10:03am Venous insufficiency (chroni c) (peripheral) chronic October 19, 2024 10:03am Type 2 diabetes mellitus wit h diabetic polyneuropathy ruled-out October 192024 10:03am Hallux limitus of left foot acute November 16, 2024 10:45am 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 left foot with fat layer exposed chronic November 16 10:45am Venous insufficiency (chroni c) (peripheral) chronic November 16, 2024 10:45am Type 2 diabetes mellitus wit h diabetic polyneuropathy ruled-out November 162024 10:45am 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 right foot with fat layer exposed resolved December 27, 2024 10:30am Cognitive impairment acute December 28, 2024 8:09am Neuropathy of both feet chronic [facility] 2024 8:09am 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 right foot with fat layer exposed resolved January 03, 2025 10:54am [facility] [place] Work Phone: 1([phone]) 279-438401-30-2025 NoteHNO ID: [id number] Author: KALYAN WALKER MD Service: ? Author Type: Physician Type: Progress Notes Filed: 08/31/2024 15:04 Note Text: A detailed eye examination and retinal imaging were obtained and interpreted to rule out possible underlying reitnal dystrophy as a cause of his night vision related complaints and everything looked normal except for his pseudophakia. It is possible that some of the difficulties he is experienceing with his night driving are due to the edges of his IOLs that are reflecting the lights. Reassured that there is no evidence of retinal dysfunction or pathology. F/U PRN. I have confirmed and edited as necessary the relevant HPI, ophthalmic history, ROS, and the neuro exam findings as obtained by others. I have seen and examined Regino Bonilla. I have discussed the case and the management of this patient's care with the Resident/Fellow, if applicable. I also have reviewed and agree with the assessment and plan as stated above and agree with all of its relevant components. Kalyan Walker, [facility]01-30-2025 NoteDate of Procedure 08/30/2024. Over Hauler Helper Information Casualty Claims Supervisor: BONNIE. Start time: 3:16 PM. Stop time: 3:16 PM. OCT Macula Interpretation Right Eye Normal without fluid. Left Eye Normal without fluid. Interval Change Right Eye Initial. Left Eye Initial.[id number] NoteDate of Procedure 08/30/2024. Over Hauler Helper Information Casualty Claims Supervisor: BONNIE. Start time: 3:16 PM. Stop time: 3:16 PM. Disc Right Eye Normal. Left Eye Normal. Macula Right Eye Normal. Left Eye Normal. Periphery Right Eye Normal. Left Eye Normal.[id number] NoteDate of Procedure 08/30/2024. Over Hauler Helper Information Casualty Claims Supervisor: BONNIE. Start time: 3:16 PM. Stop time: 3:16 PM. Interpretation Right Eye Normal pattern. Left Eye Normal pattern.[id number] History of Present illness Narrative* Kalyan Walker I, MD - 08/31/2024 3:01 PM EST A detailed eye examination and retinal imaging were obtained and interpreted to rule out possible underlying reitnal dystrophy as a cause of his night vision related complaints and everything looked normal except for his pseudophakia. It is possible that some of the difficulties he is experienceingwith his night driving are due to the edges of his IOLs that are reflecting the lights. Reassured that there is no evidence of retinal dysfunction or pathology. F/U PRN. I have confirmed and edited as necessary the relevant HPI, ophthalmic history, ROS, and the neuro exam findings as obtained by others. I have seen and examined Regino Bonilla. I have discussed the case and the management of this patient's care with the Resident/Fellow, if applicable. I also have reviewed and agree with the assessment and plan as stated above and agree withall of its relevant components. Kalyan Walker MD [facility] Discharge [facility] Patient Education 06/24/2024 12:14:33 Sinusitis (No Antibiotics) Sinusitis (No Antibiotics) The sinuses are air-filled spaces within the bones of the face. They connect to the inside of the nose. Sinusitis is an inflammation of the tissue that lines the sinuses. Sinusitis can occur during acold. It can also happen due to allergies to pollens and other particles in the air. It can cause symptoms such as sinus congestion, headache, sore throat, facial swelling, and a feeling of fullness.It may also cause a low-grade fever. Your sinusitis does not include an infection with bacteria. Because of this, antibiotics are not used to treat this problem. Home care Drink plenty of water, hot tea, and other liquids. This may help thin nasal mucus. It also may helpyour sinuses drain fluids. Heat may help soothe painful areas of your face. Use a towel soaked in hot water. Or, erco machine operator the shower and direct the warm spray onto your face. Using a vaporizer along with a menthol rub at nightmay also help soothe symptoms. An expectorant with guaifenesin may help thin nasal mucus and help your sinuses drain fluids. You can use an elwm-ury-npbkbtn decongestant, unless a similar medicine was prescribed to you. Nasal sprays work the fastest. Use one that contains phenylephrine or oxymetazoline. First blow your nose gently. Then use the spray. Do not use these medicines more often than directed on the label. If you do, your symptoms may get worse. You may also take pills that contain pseudoephedrine. Don t use products that combine multiple medicines. This is because side effects may be increased. Read all medicine labels. You can also ask the pharmacist for help. (People with high blood pressure should notuse decongestants. They can raise blood pressure.) Pdeg-rlr-qekknrp antihistamines may help if allergies contributed to your sinusitis. Use acetaminophen or ibuprofen to control pain, unless another pain medicine was prescribed to you.If you have chronic liver or kidney disease or ever had a stomach ulcer, talk with your healthcare provider before using these medicines. (Aspirin should never be taken by anyone under age 18 who is ill with a fever. It may cause severe liver damage.) Use nasal rinses or irrigation as instructed by your healthcare provider. Don't smoke. This can make symptoms worse. Follow-up care Follow up with your healthcare provider or our staff if you are not better in 1 week. When to seek medical advice Call your healthcare provider if any of these occur: Green or yellow fluid draining from your nose or into your throat Facial pain or headache that gets worse Stiff neck Unusual drowsiness or confusion Swelling of your forehead or eyelids Vision problems, such as blurred or double vision Fever of 100.4 F (38 C) or higher, or as directed by your healthcare provider Seizure Breathing problems Symptoms that don't go away in 10 days 6714-9507 [employer]. [address] [place] [address]. All rights reserved. This information is not intended as a substitute for professional medical care. Always follow yourhealthcare professional's instructions. Follow Up Care 06/24/2024 11:24:50 With:REGINO DIAZ DO Address: [address] [place] [phone] When:2-4 days [facility] 11-23-2024 Emergency department Discharge summary Discharge Instructions Thank you for allowing [facility] to assist you with your healthcare needs. The following is importantdischarge information regarding your hospital visit. Diagnosis from Today's Visit Sinusitis What to Do Next Instructions from Your Care Team No qualifying data available. Post Acute Orders No qualifying data available. You Need to Schedule the Following Appointments Follow Up with REGINO DIAZ DO When:Within 2-4 days Where:[address] [place] [phone] Allergies Hayfever Medications Please ask your primary doctor or pharmacist before taking any other medication not listed, including over the counter drugs, herbal medications, vitamins and or supplements as they may interact withyour home medications. What How Much When Why Instructions Last Dose Changed fluticasone nasal (fluticasone 27.5 mcg/ inh nasal spray) 2 spray(s) each nostril Once a day as needed for as needed for allergy symptoms Printed Prescription Changed fluticasone nasal (fluticasone proprionate NASAL 50 mcg/ spray) 1 spray(s) each nostril Two (2) times a day as needed for Allergy symptoms Unchanged aspirin (aspirin 81 mg oral delayed release tablet) 2 tab(s) by mouth Once a day Unchanged gabapentin (gabapentin 600 mg oral tablet) 1 tab(s) by mouth Two (2) times a day Pain Duration: 30 Days Unchanged Misc Medication (Gabapentin 3%/ Diclofenac 1.5%/ Lidocaine2.5%Prilocaine 2.5% Crm) Apply 1 gram to affected area 3 to 4 times daily for treatment of pain Unchanged multivitamin (Multivitamin) 1 tab(s) by mouth Every day Please take this list to your next doctor s visit. Bring all medications you take, including over the counter medications, herbals and other supplements with you to your doctor s visit. Patients and families are reminded to discard old lists and to update any records with all medication providers or retail pharmacies. Medication Leaflets fluticasone nasal (floo TIK a sone) Childrens Flonase, Flonase Allergy Relief, Flonase Sensimist, Good Sense Allergy Relief (Fluticasone), Good Sense Children's Allergy Relief, Xhance What is the most important information I should know about fluticasone nasal? Follow all directions on your medicine label and package. Tell each of your healthcare providers about all your medical conditions, allergies, and all medicines you use. What is fluticasone nasal? Fluticasone nasal (for the nose) is a steroid medicine that is used to treat nasal congestion, sneezing, runny nose, and itchy or watery eyes caused by seasonal or year-round allergies. The Xhance brand of this medicine is for use only in adults. Veramyst may be used in children as young as 2 years old. Flonase is for use in adults and children who are at least 4 years old. Fluticasone nasal may also be used for purposes not listed in this medication guide. What should I discuss with my healthcare provider before using fluticasone nasal? You should not use fluticasone nasal if you are allergic to it. Fluticasone can weaken your immune system, making it easier for you to get an infection or worsening an infection you already have or recently had. Tell your doctor about any illness or infection youhave had within the past several weeks. Tell your doctor if you have ever had: sores or ulcers inside your nose; injury of or surgery on your nose; glaucoma or cataracts; liver disease; diabetes; a weak immune system; or any type of infection (bacterial, fungal, viral, or parasitic). If you use fluticasone nasal without a prescription and you have any medical conditions, ask a doctor or pharmacist if this medicine is safe for you. Tell your doctor if you are or breast-feeding. How should I use fluticasone nasal? Follow all directions on your prescription label and read all medication guides or instruction sheets. Use the medicine exactly as directed. Do not share this medicine with another person, even if they have the same symptoms you have. Your dose will depend on the fluticasone brand or strength you use, and your dose may change once your symptoms improve. Follow all dosing instructions very carefully. A child using the nasal spray should be supervised by an adult. Read and carefully follow any Instructions for Use provided with your medicine. Ask your doctor or pharmacist if you do not understand these instructions. Shake the nasal spray just before each use. If you switched to fluticasone from another steroid medicine, you should not stop using it suddenly. Follow your doctor's instructions about tapering your dose. It may take several days before your symptoms improve. Keep using the medication as directed and tell your doctor if your symptoms do not improve after a week of treatment. Store fluticasone nasal in an upright position at room temperature, away from moisture and heat. Throw the spray bottle away after you have used 120 sprays, even if there is still medicine left in the bottle. What happens if I miss a dose? Use the medicine as soon as you can, but skip the missed dose if it is almost time for your next dose. Do not use two doses at one time. What happens if I overdose? Seek emergency medical attention or call the Poison Help line at . An overdose of fluticasone nasal is not expected to produce life threatening symptoms. longterm use of steroid medicine can lead to glaucoma, cataracts, thinning skin, easy bruising, changes in bodyfat (especially in your face, neck, back, and waist), increased acne or facial hair, menstrual problems, impotence, or loss of interest in sex. What should I avoid while using fluticasone nasal? Avoid getting the spray in your eyes or mouth. If this does happen, rinse with water. Avoid being near people who are sick or have infections. Call your doctor for preventive treatment if you are exposed to chickenpox or measles. These conditions can be serious or even fatal in peoplewho are using fluticasone nasal. What are the possible side effects of fluticasone nasal? Get emergency medical help if you have signs of an allergic reaction: hives, rash; feeling light-headed; difficult breathing; swelling of your face, lips, tongue, or throat. Call your doctor at once if you have: severe or ongoing nosebleeds; noisy breathing, runny nose, or crusting around your nostrils; redness, sores, or white patches in your mouth or throat; fever, chills, body aches; blurred vision, eye pain, or seeing halos around lights; any wound that will not heal; or signs of a hormonal disorder--worsening tiredness or muscle weakness, feeling light-headed, nausea,vomiting. Steroid medicine can affect growth in children. Tell your doctor if your child is not growing at a normal rate while using this medicine. Common side effects may include: minor nosebleed, burning or itching in your nose; sores or white patches inside or around your nose; cough, trouble breathing; headache, back pain; sinus pain, sore throat, fever; or nausea, vomiting. This is not a complete list of side effects and others may occur. Call your doctor for medical advice about side effects. You may report side effects to FDA at 7-244-ZDQ-9016. What other drugs will affect fluticasone nasal? Tell your doctor about all your other medicines, especially: antifungal medicine; or antiviral medicine to treat hepatis C or HIV/AIDS. This list is not complete. Other drugs may affect fluticasone nasal, including prescription and iyuz-cbc-jksjnaa medicines, vitamins, and herbal products. Not all possible drug interactions are listed here. Where can I get more information? Your pharmacist can provide more information about fluticasone nasal. Remember, keep this and all other medicines out of the reach of children, never share your medicines with others, and use this medication only for the indication prescribed. Every effort has been made to ensure that the information provided by [employer]. ('[employer]') is accurate, up-to-date, and complete, but no guarantee is made to that effect. Drug information contained herein may be time sensitive. [employer] information has been compiled for use by healthcare practitioners and consumers in the [place] and therefore [employer] does not warrant that uses outside of the [place] are appropriate, unless specifically indicated otherwise. [employer] drug information does not endorse drugs, diagnose patients or recommend therapy. [employer] drug information isan informational resource designed to assist licensed healthcare practitioners in caring for their p atients and/or to serve consumers viewing this service as a supplement to, and not a substitute for, the expertise, skill, knowledge and judgment of healthcare practitioners. The absence of a warningfor a given drug or drug combination in no way should be construed to indicate that the drug or drug combination is safe, effective or appropriate for any given patient. [employer] does not assume any responsibility for any aspect of healthcare administered with the aid of information [employer] provides. The information contained herein is not intended to cover all possible uses, directions, precautions, warnings, drug interactions, allergic reactions, or adverse effects. If you have questions about the drugs you are taking, check with your doctor, nurse or pharmacist. Copyright 3444-3129 [employer]. Version: 06.02. Revision Date: 03/05/2023. Education Materials Sinusitis (No Antibiotics) The sinuses are air-filled spaces within the bones of the face. They connect to the inside of the nose. Sinusitis is an inflammation of the tissue that lines the sinuses. Sinusitis can occur during acold. It can also happen due to allergies to pollens and other particles in the air. It can cause symptoms such as sinus congestion, headache, sore throat, facial swelling, and a feeling of fullness.It may also cause a low-grade fever. Your sinusitis does not include an infection with bacteria. Because of this, antibiotics are not used to treat this problem. Home care Drink plenty of water, hot tea, and other liquids. This may help thin nasal mucus. It also may helpyour sinuses drain fluids. Heat may help soothe painful areas of your face. Use a towel soaked in hot water. Or, erco machine operator the shower and direct the warm spray onto your face. Using a vaporizer along with a menthol rub at nightmay also help soothe symptoms. An expectorant with guaifenesin may help thin nasal mucus and help your sinuses drain fluids. You can use an zxbp-gbe-klwqrsy decongestant, unless a similar medicine was prescribed to you. Nasal sprays work the fastest. Use one that contains phenylephrine or oxymetazoline. First blow your nose gently. Then use the spray. Do not use these medicines more often than directed on the label. If you do, your symptoms may get worse. You may also take pills that contain pseudoephedrine. Don t use products that combine multiple medicines. This is because side effects may be increased. Read all medicine labels. You can also ask the pharmacist for help. (People with high blood pressure should notuse decongestants. They can raise blood pressure.) Svmx-rmd-lnkbnnx antihistamines may help if allergies contributed to your sinusitis. Use acetaminophen or ibuprofen to control pain, unless another pain medicine was prescribed to you.If you have chronic liver or kidney disease or ever had a stomach ulcer, talk with your healthcare provider before using these medicines. (Aspirin should never be taken by anyone under age 18 who is ill with a fever. It may cause severe liver damage.) Use nasal rinses or irrigation as instructed by your healthcare provider. Don't smoke. This can make symptoms worse. Follow-up care Follow up with your healthcare provider or our staff if you are not better in 1 week. When to seek medical advice Call your healthcare provider if any of these occur: Green or yellow fluid draining from your nose or into your throat Facial pain or headache that gets worse Stiff neck Unusual drowsiness or confusion Swelling of your forehead or eyelids Vision problems, such as blurred or double vision Fever of 100.4 F (38 C) or higher, or as directed by your healthcare provider Seizure Breathing problems Symptoms that don't go away in 10 days 3946-6089 [employer]. [address] [place] [address]. All rights reserved. This information is not intended as a substitute for professional medical care. Always follow yourhealthcare professional's instructions. Additional Information VACCINATE! IT SAVES LIVES! Members of the community who have not yet received the COVID-19 vaccine and would like to receive it can visit one of [facility] vaccine clinics. There are many vaccine clinic locations within the [facility]. For locations and available times, please visit [email or web address] It is important to note that some COVID mobile vaccine clinics are held outdoors and may be canceled in rainy or stormy conditions. To learn more about pediatric vaccinations (ages 5-11), we invite you to visit the [facility] webpage. [email or web address] learn more about the COVID-19 vaccine, we invite you to visit the CDC website for a list of frequently asked questions. https://www.cdc.gov/coronavirus/2019-ncov/vaccines/faq.html [facility] Patient Portal Access Instructions: Stay connected with your healthcare team and access your personal medical information anytime with the [facility] Patient Portal. If you would like a full copy of your medical records please contact the [facility] Medical Records Department Wednesday through Wednesday between 8a.m. and 4:30p.m. Please follow the directions below to access the portal: 1.Access the email account you provided upon [facility] the [facility].2.Look for an invitation email from [facility].3.Open the email and access the invitation link: Accept Invitation to [facility]4.Fill in the required amato to create your account. Sign into [email or web address].[email or web address] with your username and password that you created in the above steps to stay up to date. You can then view a summary of results, a summary of your visits, and the ability to download your summaries to your computer or send the information securely to a physician. Remember that your healthcare information is confidential, so carefully consider who you will allow to register on the [facility] Patient Portal for access to your information. You can also access the [facility] Patient Portal on the [employer]. Simply click on Health Records under [facility] Exam Prep Platform and then click on the [employer] logo. HOW TO SAFELY DISPOSE OF PRESCRIPTION MEDICATIONS Please use one of the following methods to safely dispose of your unused medications. 1.Use a drug disposal kit: the drug disposal pouch allows you to safely discard your old and unuseddrugs. Ask your nurse to give you one when you are discharged.2.Visit a local take-back location: Many local pharmacies and police departments have programs that collect old and unwanted prescriptiondrugs. Call your local pharmacy or go to http://Cequens.Easyaula/0X4Ka1v to find one close to you.3.Make use of household items: Use cat litter or old coffee grounds to dispose medications if other options arenot available. Mix your drugs with these household products, seal them in an airtight container andthrow it into the garbage. Call [facility]: [phone] to be sure your drugs can be disposed of in this way. Some medicines may require a different approach.4.Never flush your medications down the toilet. IF YOU HAVE BEEN PRESCRIBED AN OPIOIDS FOR PAIN If you have been prescribed an opioid (such as hydrocodone, oxycodone or morphine), it is critical to understand the possible side effects and risks of opioid pain medications. Even when taken as directed, opioids can have several side effects including: Tolerance, meaning you might need to take more of a medication for the same pain relief. Nausea, vomiting and/or constipation. Sleepiness, dizziness, dry mouth, confusion, depression or itching. Physical dependence, meaning you have withdrawal symptoms when a medication is stopped ? this can develop within a few days. KNOW YOUR RESPONSIBILITIES It is important to know exactly how much and how often to take the opioid pain medications you are prescribed. Never take opioids in higher amounts or more often than prescribed. Do not combine opioids with alcohol or other drugs that cause drowsiness, such as benzodiazepines, also known as benzos,including diazepam and alprazolam, muscle relaxants or sleep aids. Never sell or share prescriptionopioids. This is illegal. Store opioids in a secure place and out of reach of others (including children, family, friends and visitors). The last page(s) of this document has been signed and retained as a CHART COPY Signatures Patient Education Materials Sinusitis (No Antibiotics) Medication Leaflets fluticasone nasal My discharge plan and instructions have been reviewed and explained to me and I,REGINO BONILLA understand my current condition and have read and understand these discharge instructions. I have received a written copy of the plan/instructions. If I have questions, I am aware that I should contact my doctor. 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 [employer] Signature: Date/Time: Relationship to Patient: Witness Name/Signature: Date/Time: [facility]11-12-2024 Evaluation note* Diagnosis Onset Date Resolution Status Admit Date Other hereditary and idiopathic neuropathies acute June 13, 2024 10:30am 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 left foot with fat layer exposed chronic June 13, 2024 10:30am 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 right foot with fat layer exposed resolved June 13, 2024 10:30am Sinusitis acute October 02 10:29am ALYSSA (obstructive sleep apnea) chroni c October 02, 2024 10:29am [facility] Work Phone: [phone] 600-971709-16-2024 Hospital Discharge instructions Patient Education 04/17/2024 15:57:04 Headache, Unspecified Headache, Unspecified A number of things can cause headaches. The cause of your headache isn t clear. But it doesn t seemto be a sign of any serious illness. Headache affects almost everyone at some time. It is the most common reason people miss days from work or school. You could have a tension headache or a migraine headache. Stress can cause a tension headache. This can happen if you tense the muscles of your shoulders, neck, and scalp without knowing it. If this stress lasts long enough, you may develop a tension headache. It is not clear why migraines occur, but certain things called triggers can raise the risk of having a migraine attack. Migraine triggers may include emotional stress or depression, or by hormone changes during the menstrual cycle. Other triggers include control pills and other medicines, alcohol or caffeine, foods with tyramine (such as aged cheese, wine), eyestrain, weather changes, missed meals, and lack of sleep or oversleeping. Other causes of headache include: Viral illness with high fever Head injury with concussion Sinus, ear, or throat infection Dental pain and jaw joint (TMJ) pain More serious but less common causes of headache include stroke, brain hemorrhage, brain tumor, meningitis, and encephalitis. Home care Follow these tips when taking care of yourself at home: Don t drive yourself home if you were given pain medicine for your headache. Instead, have someone else drive you home. Try to sleep when you get home. You should feel much better when you wake up. Apply heat to the back of your neck to ease a neck muscle spasm. Take care of a migraine headache by putting an ice pack on your forehead or at the base of your skull. If you have nausea or vomiting, eat a light diet until your headache eases. If you have a migraine headache, use sunglasses when in the daylight or around bright indoor lighting until your symptoms get better. Bright glaring light can make this type of headache worse. Follow-up care Follow up with your healthcare provider, or as advised. Talk with your provider if you have frequent headaches. He or she can help figure out a treatment plan. By knowing the earliest signs of headache, and starting treatment right away, you may be able to stop the pain yourself. When to seek medical advice Call your healthcare provider right away if any of these occur: Your head pain suddenly gets worse after sexual intercourse or strenuous activity Your head pain doesn t get better within 24 hours You aren t able to keep liquids down (repeated vomiting) Fever of 100.4 F (38 C) or higher, or as directed by your healthcare provider Stiff neck Extreme drowsiness, confusion, or fainting Dizziness or dizziness with spinning sensation (vertigo) Weakness in an arm or leg or one side of your face You have trouble talking or seeing [id number] [employer]. [address] [place] [address], [place] [address]. All rights reserved. This information is not intended as a substitute for professional medical care. Always follow your[facility] professional's instructions. Follow Up Care 04/17/2024 13:36:40 With:REGINO DIAZ DO Address: [address] [place] [phone] When:2-4 days [facility] 09-16-2024 Note Discharge Instructions Thank you for allowing [facility] to assist you with your healthcare needs. The following is importantdischarge information regarding your hospital visit. Diagnosis from Today's Visit Headache What to Do Next Instructions from Your Care Team You have been evaluated in the Emergency Department today for headache. Your evaluation did not show evidence of medical conditions requiring emergent intervention at this time, and your pain improved with medication in the ED. We recommend you take 600mg ibuprofen every 6 hours or tylenol 650mg every 6 hours as needed for pain. If needed, you can alternate these medications so that you take one medication every 3 hours. For instance, at noon take ibuprofen, then at 3pm take tylenol, then at 6pm take ibuprofen. Please follow up with your primary care physician within two days. Return to the Emergency Department if you experience worsening or uncontrolled pain, vision changes, recurrent vomiting, difficulty with normal activities, abnormal behavior, difficulty walking, numbness, weakness, or any other concerning symptoms. Thank you for choosing us for your care. No qualifying data available. Post Acute Orders No qualifying data available. You Need to Schedule the Following Appointments Follow Up with REGINO DIAZ DO When:Within 2-4 days Where:[address] [place] [phone] Allergies Hayfever Medications Please ask your primary doctor or pharmacist before taking any other medication not listed, including over the counter drugs, herbal medications, vitamins and or supplements as they may interact withyour home medications. What How Much When Why Instructions Last Dose Unchanged aspirin (aspirin 81 mg oral delayed releasetablet) 2 tab(s) by mouth Once a day Unchanged fluticasone nasal (fluticasone proprionate NASAL 50 mcg/ spray) 1 spray(s) each nostril Two (2) times a day as needed for Allergy symptoms Unchanged metroNIDAZOLE topical (metroNIDAZOLE 1% topical gel) 1 application Topical Once a day Rosacea Duration: 30 Days Unchanged multivitamin (Multivitamin) 1 tab(s) by mouth Every day Please take this list to your next doctor s visit. Bring all medications you take, including over the counter medications, herbals and other supplements with you to your doctor s visit. Patients and families are reminded to discard old lists and to update any records with all medication providers or retail pharmacies. Education Materials Headache, Unspecified A number of things can cause headaches. The cause of your headache isn t clear. But it doesn t seemto be a sign of any serious illness. Headache affects almost everyone at some time. It is the most common reason people miss days from work or school. You could have a tension headache or a migraine headache. Stress can cause a tension headache. This can happen if you tense the muscles of your shoulders, neck, and scalp without knowing it. If this stress lasts long enough, you may develop a tension headache. It is not clear why migraines occur, but certain things called triggers can raise the risk of having a migraine attack. Migraine triggers may include emotional stress or depression, or by hormone changes during the menstrual cycle. Other triggers include control pills and other medicines, alcohol or caffeine, foods with tyramine (such as aged cheese, wine), eyestrain, weather changes, missed meals, and lack of sleep or oversleeping. Other causes of headache include: Viral illness with high fever Head injury with concussion Sinus, ear, or throat infection Dental pain and jaw joint (TMJ) pain More serious but less common causes of headache include stroke, brain hemorrhage, brain tumor, meningitis, and encephalitis. Home care Follow these tips when taking care of yourself at home: Don t drive yourself home if you were given pain medicine for your headache. Instead, have someone else drive you home. Try to sleep when you get home. You should feel much better when you wake up. Apply heat to the back of your neck to ease a neck muscle spasm. Take care of a migraine headache by putting an ice pack on your forehead or at the base of your skull. If you have nausea or vomiting, eat a light diet until your headache eases. If you have a migraine headache, use sunglasses when in the daylight or around bright indoor lighting until your symptoms get better. Bright glaring light can make this type of headache worse. Follow-up care Follow up with your healthcare provider, or as advised. Talk with your provider if you have frequent headaches. He or she can help figure out a treatment plan. By knowing the earliest signs of headache, and starting treatment right away, you may be able to stop the pain yourself. When to seek medical advice Call your healthcare provider right away if any of these occur: Your head pain suddenly gets worse after sexual intercourse or strenuous activity Your head pain doesn t get better within 24 hours You aren t able to keep liquids down (repeated vomiting) Fever of 100.4 F (38 C) or higher, or as directed by your healthcare provider Stiff neck Extreme drowsiness, confusion, or fainting Dizziness or dizziness with spinning sensation (vertigo) Weakness in an arm or leg or one side of your face You have trouble talking or seeing [id number] [employer]. [address] [place] [address]. All rights reserved. This information is not intended as a substitute for professional medical care. Always follow yourhealthcare professional's instructions. Additional Information VACCINATE! IT SAVES LIVES! Members of the community who have not yet received the COVID-19 vaccine and would like to receive it can visit one of [facility] vaccine clinics. There are many vaccine clinic locations within the [facility]. For locations and available times, please visit [email or web address]/. It is important to note that some COVID mobile vaccine clinics are held outdoors and may be canceled in rainy or stormy conditions. To learn more about pediatric vaccinations (ages 5-11), we invite you to visit the [facility] webpage. [email or web address]/[email or web address]-Ddfrhubuuu-Yoqbh-[email or web address] [email or web address].htmlTo learn more about the COVID-19 vaccine, we invite you to visit the CDC website for a list of frequently asked questions. https://www.cdc.gov/coronavirus/2019-ncov/vaccines/faq.html [facility] Patient Portal Access Instructions: Stay connected with your healthcare team and access your personal medical information anytime with the [facility] Patient Portal. If you would like a full copy of your medical records please contact the [facility] Records Department Wednesday through Wednesday between 8a.m. and 4:30p.m. Please follow the directions below to access the portal: 1.Access the email account you provided upon [facility].2.Look for an invitation email from [facility].3.Open the email and access the invitation link: Accept Invitation to [facility]4.Fill in the required amato to create your account. Sign into [email or web address] with your username and password that you created in the above steps to stay up to date. You can then view a summary of results, a summary of your visits, and the ability to download your summaries to your computer or send the information securely to a physician. Remember that your healthcare information is confidential, so carefully consider who you will allow to register on the [facility] Patient Portal for access to your information. You can also access the [facility] Patient Portal on the [employer]. Simply click on Health Records under [facility] Exam Prep Platform and then click on the [facility] logo. HOW TO SAFELY DISPOSE OF PRESCRIPTION MEDICATIONS Please use one of the following methods to safely dispose of your unused medications. 1.Use a drug disposal kit: the drug disposal pouch allows you to safely discard your old and unuseddrugs. Ask your nurse to give you one when you are discharged.2.Visit a local take-back location: Many local pharmacies and police departments have programs that collect old and unwanted prescriptiondrugs. Call your local pharmacy or go to http://Cequens.Easyaula/3X0Tt5u to find one close to you.3.Make use of household items: Use cat litter or old coffee grounds to dispose medications if other options arenot available. Mix your drugs with these household products, seal them in an airtight container andthrow it into the garbage. Call [facility]: [phone] to be sure your drugs can be disposed of in this way. Some medicines may require a different approach.4.Never flush your medications down the toilet. IF YOU HAVE BEEN PRESCRIBED AN OPIOIDS FOR PAIN If you have been prescribed an opioid (such as hydrocodone, oxycodone or morphine), it is critical to understand the possible side effects and risks of opioid pain medications. Even when taken as directed, opioids can have several side effects including: Tolerance, meaning you might need to take more of a medication for the same pain relief. Nausea, vomiting and/or constipation. Sleepiness, dizziness, dry mouth, confusion, depression or itching. Physical dependence, meaning you have withdrawal symptoms when a medication is stopped ? this can develop within a few days. KNOW YOUR RESPONSIBILITIES It is important to know exactly how much and how often to take the opioid pain medications you are prescribed. Never take opioids in higher amounts or more often than prescribed. Do not combine opioids with alcohol or other drugs that cause drowsiness, such as benzodiazepines, also known as benzos,including diazepam and alprazolam, muscle relaxants or sleep aids. Never sell or share prescriptionopioids. This is illegal. Store opioids in a secure place and out of reach of others (including children, family, friends and visitors). The last page(s) of this document has been signed and retained as a CHART COPY Signatures Patient Education Materials Headache, Unspecified Medication Leaflets My discharge plan and instructions have been reviewed and explained to me and I,REGINO BONILLA understand my current condition and have read and understand these discharge instructions. I have received a written copy of the plan/instructions. If I have questions, I am aware that I should contact my doctor. 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 This exam was performed according to our departmental dose optimization program, and includes the following measures where applicable: automated exposure control, adjustment of the mAs and/or kVp according to patient size and/or exam, and an iterative reconstruction algorithm. COMPARISON: MRI brain 01/26/2023 HISTORY: ORDERING SYSTEM PROVIDED HISTORY: Reason for Exam: Pt c/o generalized SARABIA x7-10 days. NKI. Altered mental status FINDINGS: Parenchyma: No acute intracranial hemorrhage, midline shift, mass effect or acute ischemic infarct is demonstrated. The ariza-white matter junctions are preserved. No space occupying intra-axial masses or extra-axial fluid collections are seen. Mild parenchymal volume loss is noted. Scattered areas of decreased attenuation are identified in the subcortical, periventricular, and deep white matter statistically reflect mild chronic microvascular white matter ischemic disease. Ventricles: No evidence of hydrocephalus or ventricular effacement. Vessels: Atherosclerotic calcifications of the bilateral internal carotid siphons. Orbits: Unremarkable. Calvarium: Hyperostosis frontalis interna. Paranasal sinuses: Clear. Mastoid sinuses: Clear. IMPRESSION: 1. No acute intracranial pathology. 2. Mild parenchymal volume loss and chronic microvascular white matter ischemic disease. Interpreted by: Regino Bass MD Preliminary Report By: Regino Bass MD Electronically signed By Regino Bass MD Dictated Date: 04/17/2024 3:06:05 PM Prelim Date: 04/17/2024 3:09:09 PM Sign Date: 04/17/2024 3:09:09 PM Ordering Provider: MARQUITA [facility]09-16-2024 Note ORIGINAL EXAMINATION: ONE XRAY VIEW OF THE CHEST04/17/2024 2:57 pm XR Chest portable upright COMPARISON: None HISTORY: ORDERING SYSTEM PROVIDED HISTORY: Reason for Exam: Altered mental status, FINDINGS: No suspicious nodule, acute infiltrate, consolidation,mass, pneumothorax, pleural fluid, or vascular congestion is seen. Heart size and mediastinal contours are within normal limits for age and projection. No acute skeletal abnormality. IMPRESSION: No acute cardiopulmonary process. Interpreted by: Jason Lopez MD Preliminary Report By: Jason Lopez MD Electronically signed By Jason Lopez MD Dictated Date: 04/17/2024 3:07:25 PM Prelim Date: 04/17/2024 3:07:44 PM Sign Date: 04/17/2024 3:07:44 PM Ordering Provider: MARQUITA [facility]09-16-2024 NoteSinus rhythm Electronic Signature: MARQUITA HUMPHREYS MD 04/17/2024 14:43:13[facility] Evaluation + Plan note Future Appointments Appointment Date:03/12/2022 02:00:00 PM Scheduled Provider:REGINO DIAZ DO Location:[facility] Appointment Type:PC OV Future Scheduled Tests Laboratory* Prostate Specific Antigen 07/23/21 * Lipid Profile 07/23/21 [facility] Evaluation + Plan note Future Appointments Appointment Date:05/07/2022 02:00:00 PM Scheduled Provider:REGINO DIAZ DO Location:[facility] Appointment Type:PC OV Appointment Date:07/14/2022 08:00:00 PM Scheduled Provider: Location:[facility] Appointment Type:SL C-PAP (Continuous Positive Airway Pre Future Scheduled Tests Laboratory* Prostate Specific Antigen 07/23/21 * Lipid Profile 07/23/21 [facility] Evaluation + Plan note Future Appointments Appointment Date:07/14/2022 02:15:00 PM Scheduled Provider:REGINO DIAZ DO Location:[facility] Appointment Type:PC OV Appointment Date:07/14/2022 08:00:00 PM Scheduled Provider: Location:[facility] Appointment Type:SL C-PAP (Continuous Positive Airway Pre Diagnostic Tests Pending * Cytoplasmic Neutro. Antibody 05/27/22 * RAGHAV (serum) 05/27/22 * RUSSELL Panel 05/27/22 * Vitamin B6 Level 05/27/22 Future Scheduled Tests Laboratory* Prostate Specific Antigen 07/23/21 * Lipid Profile 07/23/21 [facility] Evaluation + Plan note Future Appointments Appointment Date:02/03/2023 09:30:00 AM Scheduled Provider:REGINO DIAZ DO Location:[facility] Appointment Type:PC OV Follow Up Appointment Date:04/14/2023 11:00:00 AM Scheduled Provider:REGINO DIAZ DO Location:[facility] Appointment Type:PC OV [facility] Evaluation + Plan note Future Appointments Appointment Date:05/16/2024 01:30:00 PM Scheduled Provider:REGINO DIAZ DO Location:[facility] Appointment Type:PC OV Follow Up Future Scheduled Tests Laboratory* Prostate Specific Antigen 08/09/23 * Lipid Profile 08/09/23 * Complete Metabolic Panel 08/09/23 [facility] Evaluation + Plan note Future Appointments Appointment Date:05/16/2024 01:30:00 PM Scheduled Provider:REGINO DIAZ DO Location:[facility] Appointment Type:PC OV Follow Up Future Scheduled Tests Laboratory* Folate Level 04/18/24 * Prostate Specific Antigen 08/09/23 * Thyroid Stimulating Hormone 04/18/24 * Vitamin B12 Level 04/18/24 * Lipid Profile 08/09/23 * Complete Metabolic Panel 08/09/23 [facility] Evaluation + Plan note Future Appointments Appointment Date:07/11/2024 02:00:00 PM Scheduled Provider:REGINO DIAZ DO Location:[facility] Appointment Type:PC OV Follow Up Future Scheduled Tests Laboratory* Folate Level 04/18/24 * Prostate Specific Antigen 08/09/23 * Thyroid Stimulating Hormone 04/18/24 * Vitamin B12 Level 04/18/24 * Lipid Profile 08/09/23 * Complete Metabolic Panel 08/09/23 [facility] Evaluation + Plan note Future Appointments Appointment Date:04/18/2024 11:30:00 AM Scheduled Provider:REGINO DIAZ DO [facility] Appointment Type:PC OV Appointment Date:05/16/2024 01:30:00 PM Scheduled Provider:REGINO DIAZ DO Location:[facility] Appointment Type:PC OV Follow Up Future Scheduled Tests Laboratory* Prostate Specific Antigen 08/09/23 * Lipid Profile 08/09/23 * Complete Metabolic Panel 08/09/23 [facility] Evaluation note* Diagnosis Onset Date Resolution Status Localized edema acute Other hereditary and idiopathic neuropathies acute Other specified peripheral vascular diseases acute Venous insufficiency (chronic) (peripheral) chronic 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 right foot with fat layer exposed resolved Localized edema acute Other hereditary and idiopathic neuropathies acute Other specified peripheral vascular diseases acute Venous insufficiency (chronic) (peripheral) chronic 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 right foot with fat layer exposed resolved Ulcer of left foot with fat layer exposed resolved Localized edema acute Other hereditary and idiopathic neuropathies acute Other specified peripheral vascular diseases acute Venous insufficiency (chronic) (peripheral) chronic 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 right foot with fat layer exposed resolved Localized edema acute Other hereditary and idiopathic neuropathies acute Other specified peripheral vascular diseases acute Venous insufficiency (chronic) (peripheral) chronic 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 right foot with fat layer exposed resolved [facility] [place] Work Phone: Evaluation noteNo assessment information available [facility] [place] Work Phone: Evaluation note* Diagnosis Onset Date Resolution Status ALYSSA (obstructive sleep apnea) acute [facility] [place] Work Phone: Evaluation note* Diagnosis Nyctalopia- Primary Night blindness, unspecified Other specified retinal disorders documented in this encounter [facility] course Narrative No data available for this section [facility] Hospital Discharge instructions No data available for this section [facility] Hospital Discharge instructions Additional Instructions The CAT scan your brain and your labs look good. No specific cause for your headache. Tylenol for pain. Follow-up with your doctor if you keep getting recurrent headaches or feeling worse.[facility] [place] Work Phone: Hospital Discharge instructions Additional Instructions Follow-up with your doctor in the outpatient setting. Your chest x-ray did not show any evidence of pneumonia. Showed the chest x-ray results that you provided here in the emergency department to your primary care for doctor to follow-up on the suggested adenopathy that they saw on your chest x-ray. [facility] Work [facility] Progress note No data available for this section [facility] Reason for referral (narrative)No reason for referral information available[facility] [place] Work [facility]: Chief Complaint and Reason for Visit Chief Complaint PERIPHERAL VASCULAR DISEASE wound wound wound HEADACHE, DIZZINESS RIGHT STRUCTURE OF ARTERY wound Reason for Visit Localized edema Other hereditary and idiopathic neuropathies Other specified peripheral vascular diseases Venous insufficiency (chronic) (peripheral) Non-pressure chronic ulcer of other part of right foot with fat layer exposed Localized edema Other hereditary and idiopathic neuropathies Other specified peripheral vascular diseases Venous insufficiency (chronic) (peripheral) Non-pressure chronic ulcer of other part of right foot with fat layer exposed Ulcer of left foot with fat layer exposed Localized edema Other hereditary and idiopathic neuropathies Other specified peripheral vascular diseases Venous insufficiency (chronic) (peripheral) Non-pressure chronic ulcer of other part of right foot with fat layer exposed Localized edema Other hereditary and idiopathic neuropathies Other specified peripheral vascular diseases Venous insufficiency (chronic) (peripheral) Non-pressure chronic ulcer of other part of right foot with fat layer exposed Chief Complaint FALL Chief Complaint Sleep problems ALYSSA Reason for Visit ALYSSA (obstructive sle ep apnea) Chief Complaint Admit Date COGNITIVE IMPAIRMENT June 12, 2024 11:29am Non-pressure chronic ulcer of other part of unspec June 13, 2024 10:30am sinus and ear infections June 18, 2024 10:24am UPPER July 22, 2024 11:47am ULCER RIGHT FOOT August 07, 2024 3: 01pm neck pain August 11, 2024 5 :01pm BLE PAIN September 12, 2024 1:48pm PAIN, DEFORMITY, ARTHRITIS RT FT y 2024 10:39am 1 Y FU October 02, 2024 10:2 9am SINUS INFECTION October 08, 2024 6:51 pm Reason for Visit Admit Date Other hereditary and idiopathic neuropat hies June 13, 2024 10:30am 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 left foot with fat layer exposed June 13, 2024 10:30am 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 right foot with fat layer exposed June 13, 2024 10:30am Sinusitis October 02, 2024 10:2 9am ALYSSA (obstructive sleep apnea) October 02, 2024 10:29am Chief Complaint Admit Date July 22, 2024 11:47am ULCER RIGHT FOOT August 07, 2024 3: 01pm neck pain August 11, 2024 5 :01pm BLE PAIN September 12, 2024 1:48pm PAIN, DEFORMITY, ARTHRITIS RT FT uar 2024 10:39am 1 Y FU October 02, 2024 10:2 9am SINUS INFECTION October 08, 2024 6:51 pm wound October 19, 2024 10: 03am Reason for Visit Admit Date Sinusitis October 02, 2024 10:2 9am ALYSSA (obstructive sleep apnea) October 02, 2024 10:29am Hallux limitus of left foot October 19, 2024 10:03am 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 left foot with fat layer exposed October 19, 2024 10:03am Venous insufficiency (chronic) (peripher al) October 19, 2024 10:03am Type 2 diabetes mellitus with diabetic p olyneuropathy October 19, 2024 10:03am Chief Complaint Admit Date ULCER RIGHT FOOT August 07, 2024 3: 01pm neck pain August 11, 2024 5 :01pm BLE PAIN September 12, 2024 1:48pm PAIN, DEFORMITY, ARTHRITIS RT FT Februa y 2024 10:39am 1 Y FU October 02, 2024 10:2 9am SINUS INFECTION October 08, 2024 6:51 pm wound October 19, 2024 10: 03am wound November 16, 2024 10: 45am SARABIA December 05, 2024 6:38pm Reason for Visit Admit Date Sinusitis October 02, 2024 10:2 9am ALYSSA (obstructive sleep apnea) October 02, 2024 10:29am Hallux limitus of left foot October 19, 2024 10:03am 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 left foot with fat layer exposed October 19, 2024 10:03am Venous insufficiency (chronic) (peripher al) October 19, 2024 10:03am Type 2 diabetes mellitus with diabetic p olyneuropathy October 19, 2024 10:03am Hallux limitus of left foot November 16, 2024 10:45am 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 left foot with fat layer exposed November 16, 2024 10:45am Venous insufficiency (chronic) (peripher al) November 16, 2024 10:45am Type 2 diabetes mellitus with diabetic p olyneuropathy November 16, 2024 10:45am Chief Complaint Admit Date BLE PAIN September 12, 2024 1:48pm PAIN, DEFORMITY, ARTHRITIS RT FT Februar y 2024 10:39am 1 Y FU October 02, 2024 10:2 9am SINUS INFECTION October 08, 2024 6:51 pm wound October 19, 2024 10: 03am wound November 16, 2024 10: 45am SARABIA December 05, 2024 6:38pm wound December 13, 2024 10:32 am RIGHT FOOT ULCER, BONE SPURS December 13 025 12:46pm Reason for Visit Admit Date Sinusitis October 02, 2024 10:2 9am ALYSSA (obstructive sleep apnea) October 02, 2024 10:29am Hallux limitus of left foot October 19, 2024 10:03am 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 left foot with fat layer exposed October 19, 2024 10:03am Venous insufficiency (chronic) (peripher al) October 19, 2024 10:03am Type 2 diabetes mellitus with diabetic p olyneuropathy October 19, 2024 10:03am Hallux limitus of left foot November 16, 2024 10:45am 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 left foot with fat layer exposed November 16, 2024 10:45am Venous insufficiency (chronic) (peripher al) November 16, 2024 10:45am Type 2 diabetes mellitus with diabetic p olyneuropathy November 16, 2024 10:45am 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 right foot with fat layer exposed December 13, 2024 10:32am Chief Complaint Admit Date BLE PAIN September 12, 2024 1:48pm PAIN, DEFORMITY, ARTHRITIS RT FT Februar y 2024 10:39am 1 Y FU October 02, 2024 10:2 9am SINUS INFECTION October 08, 2024 6:51 pm wound October 19, 2024 10: 03am wound November 16, 2024 10: 45am SARABIA December 05, 2024 6:38pm RIGHT FOOT ULCER, BONE SPURS December 13 025 12:46pm wound December 27, 2024 10:30 am FOLLOW UP December 28, 2024 8:09a m Reason for Visit Admit Date Sinusitis October 02, 2024 10:2 9am ALYSSA (obstructive sleep apnea) October 02, 2024 10:29am Hallux limitus of left foot October 19, 2024 10:03am 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 left foot with fat layer exposed October 19, 2024 10:03am Venous insufficiency (chronic) (peripher al) October 19, 2024 10:03am Type 2 diabetes mellitus with diabetic p olyneuropathy October 19, 2024 10:03am Hallux limitus of left foot November 16, 2024 10:45am 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 left foot with fat layer exposed November 16, 2024 10:45am Venous insufficiency (chronic) (peripher al) November 16, 2024 10:45am Type 2 diabetes mellitus with diabetic p olyneuropathy November 16, 2024 10:45am 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 right foot with fat layer exposed December 27, 2024 10:30am Reason for Visit Admit Date Sinusitis October 02, 2024 10:2 9am ALYSSA (obstructive sleep apnea) October 02, 2024 10:29am Hallux limitus of left foot October 19, 2024 10:03am 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 left foot with fat layer exposed October 19, 2024 10:03am Venous insufficiency (chronic) (peripher al) October 19, 2024 10:03am Type 2 diabetes mellitus with diabetic p olyneuropathy October 19, 2024 10:03am Hallux limitus of left foot November 16, 2024 10:45am 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 left foot with fat layer exposed November 16, 2024 10:45am Venous insufficiency (chronic) (peripher al) November 16, 2024 10:45am Type 2 diabetes mellitus with diabetic p olyneuropathy November 16, 2024 10:45am 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 right foot with fat layer exposed December 27, 2024 10:30am Cognitive impairment December 28, 2024 8:09 am Neuropathy of both feet December 28, 2024 8 :09am Chief Complaint Admit Date PAIN, DEFORMITY, ARTHRITIS RT FT uar y 2024 10:39am 1 Y FU October 02, 2024 10:2 9am SINUS INFECTION October 08, 2024 6:51 pm wound October 19, 2024 10: 03am wound November 16, 2024 10: 45am SARABIA December 05, 2024 6:38pm RIGHT FOOT ULCER, BONE SPURS December 13 025 12:46pm wound December 27, 2024 10:30 am FOLLOW UP December 28, 2024 8:09a m wound January 03, 2025 10:54 am CONGESTION January 23, 2025 12:0 4pm Reason for Visit Admit Date Sinusitis October 02, 2024 10:2 9am ALYSSA (obstructive sleep apnea) October 02, 2024 10:29am Hallux limitus of left foot October 19, 2024 10:03am 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 left foot with fat layer exposed October 19, 2024 10:03am Venous insufficiency (chronic) (peripher al) October 19, 2024 10:03am Type 2 diabetes mellitus with diabetic p olyneuropathy October 19, 2024 10:03am Hallux limitus of left foot November 16, 2024 10:45am 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 left foot with fat layer exposed November 16, 2024 10:45am Venous insufficiency (chronic) (peripher al) November 16, 2024 10:45am Type 2 diabetes mellitus with diabetic p olyneuropathy November 16, 2024 10:45am 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 right foot with fat layer exposed December 27, 2024 10:30am Cognitive impairment December 28, 2024 8:09 am Neuropathy of both feet December 28, 2024 8 :09am 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 right foot with fat layer exposed January 03, 2025 10:54am Chief Complaint Admit Date 1 Y FU October 02, 2024 10:2 9am SINUS INFECTION October 08, 2024 6:51 pm wound October 19, 2024 10: 03am wound November 16, 2024 10: 45am SARABIA December 05, 2024 6:38pm RIGHT FOOT ULCER, BONE SPURS December 13 025 12:46pm wound December 27, 2024 10:30 am FOLLOW UP December 28, 2024 8:09a m wound January 03, 2025 10:54 am CONGESTION January 23, 2025 12:0 4pm Advance Directives No Advanced Directives Records Found Advance Directive Response Recorded Date/ Time Living Will Yes September 29 4:20pm Power of Heating And Refrigeration Inspector Yes September 29, 2021 4:20pm Advance Directive Response Recorded Date/ Time Living Will No November 09, 2022 3:50pm Power of Heating And Refrigeration Inspector No November 09 3:50pm Advance Directive Response Recorded Date/ Time Living Will No September 06 9:31am Power of Heating And Refrigeration Inspector Yes September 06, 2023 9:31am Living Will Yes April 09 9:14am Power of Heating And Refrigeration Inspector Yes April 09, 2024 9:14am Living Will No June 18 11:29am Power of Heating And Refrigeration Inspector No June 18, 2024 11:29am Living Will No July 22 3:19pm Power of Heating And Refrigeration Inspector No July 22, 2024 3:19pm Living Will No August 11 6:17pm Power of Heating And Refrigeration Inspector Yes August 11, 2024 6:17pm Name of Medical Power of Heating And Refrigeration Inspector Raza Sterling August 11, 2024 6:17pm Living Will No October 08, 2024 7:46pm Power of Heating And Refrigeration Inspector No October 08 7:46pm Living Will Yes June 02 10:56am Power of Heating And Refrigeration Inspector No June 02, 2024 10:56am Advance Directive Response Recorded Date/ Time Living Will No September 06 9:31am Do you have a Healthcare Power of Heating And Refrigeration Inspector? Yes September 06, 2023 9:31am Living Will No July 22 3:19pm Do you have a Healthcare Power of Heating And Refrigeration Inspector? No July 22, 2024 3:19pm Living Will No August 11 6:17pm Do you have a Healthcare Power of Heating And Refrigeration Inspector? Yes August 11, 2024 6:17pm Name of Medical Power of Heating And Refrigeration Inspector Raza Sterling August 11, 2024 6:17pm Living Will No October 08, 2024 7:46pm Do you have a Healthcare Power of Heating And Refrigeration Inspector? No October 08, 2024 7:46pm Advance Directive Response Recorded Date/ Time Living Will No September 06 9:31am Do you have a Healthcare Power of Heating And Refrigeration Inspector? Yes September 06, 2023 9:31am Living Will No August 11 6:17pm Do you have a Healthcare Power of Heating And Refrigeration Inspector? Yes August 11, 2024 6:17pm Name of Medical Power of Heating And Refrigeration Inspector Raza Sterling August 11, 2024 6:17pm Living Will No October 08, 2024 7:46pm Do you have a Healthcare Power of Heating And Refrigeration Inspector? No October 08, 2024 7:46pm Do you have a Healthcare Power of Heating And Refrigeration Inspector? Yes December 05, 2024 7:17pm Name of Medical Power of Heating And Refrigeration Inspector Polina Bonilla December 05, 2024 7:17pm Advance Directive Response Recorded Date/ Time Living Will No September 06 9:31am Do you have a Healthcare Power of Heating And Refrigeration Inspector? Yes September 06, 2023 9:31am Living Will No October 08, 2024 7:46pm Do you have a Healthcare Power of Heating And Refrigeration Inspector? No October 08, 2024 7:46pm Do you have a Healthcare Power of Heating And Refrigeration Inspector? Yes December 05, 2024 7:17pm Name of Medical Power of Heating And Refrigeration Inspector Polina Bonilla December 05, 2024 7:17pm Advance Directive Response Recorded Date/ Time Living Will No September 06 9:31am Do you have a Healthcare Power of Heating And Refrigeration Inspector? Yes September 06, 2023 9:31am Living Will No October 08, 2024 7:46pm Do you have a Healthcare Power of Heating And Refrigeration Inspector? No October 08, 2024 7:46pm Do you have a Healthcare Power of Heating And Refrigeration Inspector? No January 23, 2025 12:14pm Do you have a Healthcare Power of Heating And Refrigeration Inspector? Yes December 05, 2024 7:17pm Name of Medical Power of Heating And Refrigeration Inspector Polina Bonilla December 05, 2024 7:17pm Family History No Family History Records Found Relationship Condition Age at Onset Recorded Date/T jarod father Diabetes mellitus Unknown Obstructive sleep apnea syndrome Unknown Summary Purpose Additional Source Comments Goals (unrecognized section and content) Goals may be documented in a n alternate section No data available for this section No data available for this section No data available for this sectionGoals may be documented in an alternate section No data available for this sectionGoals may be documented in an alternate section No data available for this section No data available for this section No data available for this section No data available for this sectionGoals may be documented in an alternate sectionGoals may be documented in an alternate sectionGoals may be documented in an alternate sectionGoals may be documented in an alternate sectionGoals may be documented in an alternate sectionGoals may be documented in an alternate sectionGoals may be documented in an alternate sectionGoals may be documented in an alternate sectionGoals may be documented in an alternate section Care Team (unrecognized sect ion and content) Care Team Personnel Name: REGINO DIAZ DO Position: P4 Physician - Primary Care Med Service: Active Provider Member Role: Primary Care Physician Address: Address: [address] [place] [address] [facility] [address] Care Team Related Persons Name: FRANCIS DEL REAL Care Team Personnel Name: REGINO DIAZ DO Position: P4 Physician - Primary Care Med Service: Active Provider Member Role: Primary Care Physician Address: Address: [address] [place] [address] Care Team Related Persons Name: FRANCIS DEL REAL Care Team Personnel Name: REGINO DIAZ DO Position: P4 Physician - Primary Care Member Role: Primary Care Physician Address: Address: [address] [place] [address] Care Team Related Persons Name: FRANCIS DEL REAL Care Teams (unrecognized sec tion and content) Team Status: Active Member Role Status Dates Dr. Regino Diaz DO Family Provider Active Dr. Regino Diaz DO Primary Care Provider Active Team Status: Inactive Member Role Status Dates Dr. Regino Diaz DO Primary Care Provider Active Dr. Celso Sage DO Emergency Provider Active Team Status: Inactive Member Role Status Dates Dr. Regino Diaz DO Primary Care Provider, Referri ng Provider Active Mary Og CAN MACHINE OPERATOR, CAN MACHINE OPERATOR-C Attending Provider Active Team Status: Inactive Member Role Status Dates Dr. 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 Regino Diaz DO Primary Care Provider Active Team Status: Inactive Member Role Status Dates Dr. Regino Diaz DO Primary Care Provider Active Start: June 12, 2024 End: June 12, 2024 Dr. Vic Lopez MD Attending Provider Active Start: June 12, 2024 End: June 12, 2024 Dr. Vic Lopez MD Referring Provider Active Start: June 12, 2024 End: June 12, 2024 Team Status: Inactive Member Role Status Dates Dr. Kj Wei DPM Attending Provider Active Start: June 13, 2024 End: June 15, 2024 Dr. Regino Diaz DO Primary Care Provider Active Start: June 13, 2024 End: June 15, 2024 Dr. Regino Diaz DO Referring Provider Active Start: June 13, 2024 End: June 15, 2024 Team Status: Inactive Member Role Status Dates Dr. Region Diaz DO Primary Care Provider Active Start: June 18, 2024 End: June 18, 2024 Ata Torres MD Attending Provider Active Star t: June 18, 2024 End: June 18, 2024 Ata Torres MD Emergency Provider Active Star t: June 18, 2024 End: June 18, 2024 Team Status: Inactive Member Role Status Dates Dr. Regino Diaz DO Primary Care Provider Active Start: July 22, 2024 End: July 22, 2024 Dr. Yony Gonzales DO Attending Provider Active Start: July 22, 2024 End: July 22, 2024 Dr. Yony Gonzales DO Emergency Provider Active Start: July 22, 2024 End: July 22, 2024 Team Status: Inactive Member Role Status Dates Dr. Regino Diaz DO Primary Care Provider Active Start: August 07, 2024 End: August 07, 2024 Dr. Doug Diaz DPM Attending Provider Active Start: August 07, 2024 End: August 07, 2024 Dr. Doug Diaz DPM Referring Provider Active Start: August 07, 2024 End: August 07, 2024 Team Status: Inactive Member Role Status Dates Dr. Regino Diaz DO Primary Care Provider Active Start: August 11, 2024 End: August 11, 2024 Dr. Ubaldo Harrison DO Attending Provider Active Start : August 11, 2024 End: August 11, 2024 Dr. Ubaldo Harrison DO Emergency Provider Active Start : August 11, 2024 End: August 11, 2024 Team Status: Inactive Member Role Status Dates Dr. Regino Diaz DO Primary Care Provider Active Start: September 12, 2024 End: September 12, 2024 Dr. Doug Diaz DPM Attending Provider Active Start: September 12, 2024 End: September 12, 2024 Dr. Doug Diaz DPM Referring Provider Active Start: September 12, 2024 End: September 12, 2024 Team Status: Active Member Role Status Dates Dr. Regino Diaz DO Primary Care Provider Active Start: September 12, 2024 Dr. Raffaele Gutierrez MD Attending Provider Active S tart: September 12, 2024 Dr. Doug Diaz DPM Referring Provider Active Start: September 12, 2024 Team Status: Active Member Role Status Dates Dr. Regino Diaz DO Primary Care Provider Active Start: September 29, 2024 Dr. Doug Diaz DPM Attending Provider Active Start: September 29, 2024 Dr. Doug Diaz DPM Referring Provider Active Start: September 29, 2024 Team Status: Inactive Member Role Status Dates Dr. Regino Diaz DO Primary Care Provider Active Start: October 02, 2024 End: October 02, 2024 Dr. Regino Diaz DO Referring Provider Active Start: October 02, 2024 End: October 02, 2024 Mary Og NP, CAN MACHINE OPERATOR-C Attending Provider Active Start: October 02, 2024 End: October 02, 2024 Team Status: Inactive Member Role Status Dates Dr. Regino Diaz DO Primary Care Provider Active Start: October 08, 2024 End: October 08, 2024 Dr. Lenny Olivia MD Emergency Provider Active Start: October 08, 2024 End: October 08, 2024 Team Status: Inactive Member Role Status Dates Dr. Regino Diaz DO Primary Care Provider Active Start: September 29, 2024 End: September 29, 2024 Dr. Doug Diaz DPM Attending Provider Active Start: September 29, 2024 End: September 29, 2024 Dr. Doug Diaz DPM Referring Provider Active Start: September 29, 2024 End: September 29, 2024 Team Status: Inactive Member Role Status Dates Dr. Regino Diaz DO Primary Care Provider Active Start: October 08, 2024 End: October 08, 2024 Dr. Lenny Olivia MD Attending Provider Active Start: October 08, 2024 End: October 08, 2024 Dr. Lenny Olivia MD Emergency Provider Active Start: October 08, 2024 End: October 08, 2024 Team Status: Inactive Member Role Status Dates Dr. Regino Diaz DO Primary Care Provider Active Start: October 19, 2024 End: October 30, 2024 Dr. Regino Diaz DO Referring Provider Active Start: October 19, 2024 End: October 30, 2024 Dr. Tomas French DPM Attending Provider Active Start: October 19, 2024 End: October 30, 2024 Team Status: Inactive Member Role Status Dates Dr. Regino Diaz DO Primary Care Provider Active Start: November 16, 2024 End: November 29, 2024 Dr. Regino Diaz DO Referring Provider Active Start: November 16, 2024 End: November 29, 2024 Dr. Tomas French DPM Attending Provider Active Start: November 16, 2024 End: November 29, 2024 Team Status: Inactive Member Role Status Dates Dr. Regino Diaz DO Primary Care Provider Active Start: December 05, 2024 End: December 05, 2024 Dr. Janes Lara MD Emergency Provider Active S tart: December 05, 2024 End: December 05, 2024 Team Status: Inactive Member Role Status Dates Dr. Regino Diaz DO Primary Care Provider Active Start: December 05, 2024 End: December 05, 2024 Dr. Janes Lara MD Attending Provider Active S tart: December 05, 2024 End: December 05, 2024 Dr. Janes Lara MD Emergency Provider Active S tart: December 05, 2024 End: December 05, 2024 Team Status: Active Member Role Status Dates Dr. Regino Diaz DO Primary Care Provider Active Start: December 13, 2024 Dr. Regino Diaz DO Referring Provider Active Start: December 13, 2024 Dr. Matt Adhikari DPM Attending Provider Active Start: December 13, 2024 Team Status: Inactive Member Role Status Dates Dr. Regino Diaz DO Primary Care Provider Active Start: December 13, 2024 End: December 13, 2024 Dr. Matt Adhikari DPM Attending Provider Active Start: December 13, 2024 End: December 13, 2024 Dr. Matt Adhikari DPM Referring Provider Active Start: December 13, 2024 End: December 13, 2024 Team Status: Active Member Role Status Dates Dr. Regino Diaz DO Primary Care Provider Active Start: December 27, 2024 Dr. Regino Diaz DO Referring Provider Active Start: December 27, 2024 Dr. Matt Adhikari DPM Attending Provider Active Start: December 27, 2024 Team Status: Inactive Member Role Status Dates Dr. Regino Diaz DO Primary Care Provider Active Start: December 28, 2024 End: December 28, 2024 Dr. Regino Diaz DO Referring Provider Active Start: December 28, 2024 End: December 28, 2024 Dr. Vic Lopez MD Attending Provider Active Start: December 28, 2024 End: December 28, 2024 Team Status: Inactive Member Role Status Dates Dr. Regino Diaz DO Primary Care Provider Active Start: December 27, 2024 End: December 30, 2024 Dr. Regino Diaz DO Referring Provider Active Start: December 27, 2024 End: December 30, 2024 Dr. Matt Adhikari DPM Attending Provider Active Start: December 27, 2024 End: December 30, 2024 Team Status: Active Member Role Status Dates Dr. Regino Diaz DO Primary Care Provider Active Start: January 03, 2025 Dr. Regino Diaz DO Referring Provider Active Start: January 03, 2025 Dr. Matt Adhikari DPM Attending Provider Active Start: January 03, 2025 Team Status: Inactive Member Role Status Dates Dr. Regino Diaz DO Primary Care Provider Active Start: January 23, 2025 End: January 23, 2025 Dr. Yony Gonzales DO Emergency Provider Active Start: January 23, 2025 End: January 23, 2025 Team Status: Active Member Role/Relationship Status Dates Dr. Regino Diaz DO Primary Care Provider Active Team Status: Inactive Member Role/Relationship Status Dates Dr. Regino Diaz DO Primary Care Provider Active Start: October 02, 2024 End: October 02, 2024 Dr. Regino Diaz DO Referring Provider Active Start: October 02, 2024 End: October 02, 2024 Mary Og NP, CAN MACHINE OPERATOR-C Attending Provider Active Start: October 02, 2024 End: October 02, 2024 Team Status: Inactive Member Role/Relationship Status Dates Dr. Regino Diaz DO Primary Care Provider Active Start: October 08, 2024 End: October 08, 2024 Dr. Lenny Olivia MD Attending Provider Active Start: October 08, 2024 End: October 08, 2024 Dr. Lenny Olivia MD Emergency Provider Active Start: October 08, 2024 End: October 08, 2024 Team Status: Inactive Member Role/Relationship Status Dates Dr. Regino Diaz DO Primary Care Provider Active Start: October 19, 2024 End: October 30, 2024 Dr. Regino Diaz DO Referring Provider Active Start: October 19, 2024 End: October 30, 2024 Dr. Tomas French DPM Attending Provider Active Start: October 19, 2024 End: October 30, 2024 Team Status: Inactive Member Role/Relationship Status Dates Dr. Regino Diaz DO Primary Care Provider Active Start: November 16, 2024 End: November 29, 2024 Dr. Regino Diaz DO Referring Provider Active Start: November 16, 2024 End: November 29, 2024 Dr. Tomas French DPM Attending Provider Active Start: November 16, 2024 End: November 29, 2024 Team Status: Inactive Member Role/Relationship Status Dates Dr. Regino Diaz DO Primary Care Provider Active Start: December 05, 2024 End: December 05, 2024 Dr. Janes Lara MD Attending Provider Active S tart: December 05, 2024 End: December 05, 2024 Dr. Janes Lara MD Emergency Provider Active S tart: December 05, 2024 End: December 05, 2024 Team Status: Inactive Member Role/Relationship Status Dates Dr. Regino Diaz DO Primary Care Provider Active Start: December 13, 2024 End: December 13, 2024 Dr. Matt Adhikari DPM Attending Provider Active Start: December 13, 2024 End: December 13, 2024 Dr. Matt Adhikari DPM Referring Provider Active Start: December 13, 2024 End: December 13, 2024 Team Status: Inactive Member Role/Relationship Status Dates Dr. Regino Diaz DO Primary Care Provider Active Start: December 27, 2024 End: December 30, 2024 Dr. Regino Diaz DO Referring Provider Active Start: December 27, 2024 End: December 30, 2024 Dr. Matt Adhikari DPM Attending Provider Active Start: December 27, 2024 End: December 30, 2024 Team Status: Inactive Member Role/Relationship Status Dates Dr. Regino Diaz DO Primary Care Provider Active Start: December 28, 2024 End: December 28, 2024 Dr. Regino Diaz DO Referring Provider Active Start: December 28, 2024 End: December 28, 2024 Dr. Vic Lopez MD Attending Provider Active Start: December 28, 2024 End: December 28, 2024 Team Status: Inactive Member Role/Relationship Status Dates Dr. Regino Diaz DO Primary Care Provider Active Start: January 03, 2025 End: January 29, 2025 Dr. Regino Diaz DO Referring Provider Active Start: January 03, 2025 End: January 29, 2025 Dr. Matt Adhikari DPM Attending Provider Active Start: January 03, 2025 End: January 29, 2025 Team Status: Inactive Member Role/Relationship Status Dates Dr. Regino Diaz DO Primary Care Provider Active Start: January 23, 2025 End: January 23, 2025 Dr. Yony Gonzales DO Attending Provider Active Start: January 23, 2025 End: January 23, 2025 Dr. Yony Gonzales DO Emergency Provider Active Start: January 23, 2025 End: January 23, 2025 (unrecognized sect ion and content) No Status Records FoundNo Status Records FoundNo Status Records FoundNo Status Records FoundNo Status Records Found INFORMATION SOURCE (unrecogn ized section and content) DATE CREATED AUTHOR 12/13/2023 [facility] ([place]) DATE CREATED AUTHOR AUTHOR'S ORGANIZ ATION 05/12/2024 [facility] DATE CREATED AUTHOR AUTHOR'S ORGANIZ ATION 06/27/2024 [facility] DATE CREATED AUTHOR AUTHOR'S ORGANIZ ATION 09/01/2024 [facility] DATE CREATED AUTHOR AUTHOR'S ORGANIZ ATION 01/31/2025 [facility] Source Comments (unrecognize d section and content) In the event this informatio n is protected by the Federal Confidentiality of Alcohol and Drug Abuse Patient Records regulations: The Federal rules restrict any use of the information to criminally investigate or prosecute any alcohol or drug abuse patient.[facility] Reason for Visit (unrecogniz ed section and content) Reason Comments [employer] Evaluation FOR RECORDS PERTAINING TO PATIENTS WHO ARE OR HAVE BEEN ENROLLED IN A CHEMICAL DEPENDENCY/SUBSTANCEABUSE PROGRAM, SOME INFORMATION MAY BE OMITTED. This clinical summary was aggregated from multiple sources. Caution should be exercised in using it in the provision of clinical care. This summary normalizes information from multiple sources, and as a consequence, information in this document may materially change the coding, format and clinical context of patient data. In addition, data may be omitted in some cases. CLINICAL DECISIONS SHOULD BE BASED ON THE PRIMARY CLINICAL RECORDS. [facility]. provides no warranty or guarantee of the accuracy or completeness of information in this document.
[2025-03-25 09:47] LABS: Hematocrit 39.2 % (40-54); Hemoglobin 13.4 g/dL (13.0-16.5); Immature Granulocytes Count 0.010 X10^3/uL (0.0-0.0); Mean Corp Hgb Conc 34.2 g/dL (32-36); Mean Corpuscular Volume 95.4 fL (80-94); Mean Platelet Vol. 11.1 fl (6.2-12.0); NRBC Flagged by Analyzer 0 % (0-5); Platelet Count 209 K/mm3 (150-450); RBC Distribution Width CV 13.7 % (11.6-14.6); RBC Distribution Width SD 48.8 fl (35.1-43.9); Red Blood Count 4.11 M/mm3 (4.6-6.2); White Blood Count 5.8 K/mm3 (4.4-11.0)
[2025-03-25 10:06] LABS: Anion Gap 13 (5-15); BUN 17 mg/dL (4-19); BUN/Creat Ratio 15.6 RATIO (10-20); Calcium,Total 9.4 mg/dL (7.6-11.0); Carbon Dioxide 21.6 mmol/L (21.0-32.0); Chloride 106 mmol/L (98-108); Estimated Creatinine Clearance 69.40 ml/min (50-250); Glucose 100 mg/dL (70-99); Potassium 4.1 mmol/L (3.3-5.1); Troponin T High Sensitivity 14 ng/L (<=22)
--- NOTE | 2025-03-25 10:07 | EDS_ITS ---
HPI History of Present Illness Chief Complaint: Headache Informant: patient Narrative Narrative: 69-year-old male states yesterday somewhere around 4 PM or 4:30 PM, he remembers getting a diffuse headache and having a very short period of time where he was slurring his speech while talking with his friend. He denies any weakness or numbness anywhere. Denies any loss of consciousness, nausea, vomiting. States he was able to get up and walk get in his car and drive home, on the way home he had a little bit of blurred vision transiently but that went away. Denies any other new symptoms. He has had no trouble speaking or understanding other since then, he still has a headache. He states he has had headaches before. He does not take any anticoagulants that he knows of. Patient has a fairly poor informant saying that he has some dementia and lives alone and he mentions multiple times that he is lonely and does not have any friends and no one visits him. [facility] Medical History Wears glasses Bone spur of foot Loss of hearing Anxiety Marijuana use Arthritis Syncope Heartburn Former smoker COPD (chronic obstructive pulmonary disease) CPAP (continuous positive airway pressure) dependence Leg cramps History of edema History of pain when walking Raynaud disease Neuropathy Home Medications ?Medication ?Instructions ?Recorded ?Last Taken ?Type multivitamin (Daily Multi-Vitamin 1 tab PO DAILY 06/0709/05/23 History tablet) turmeric 100 mg-carlos 150 1 cap PO DAILY 06/07/2311/23 History mg-olive 50 mg-oreg 150 mg-capryl capsule omega-3 fatty acids-fish oil 360 1 cap PO DAILY 09/05/23 History mg-1,200 mg capsule (Fish Oil) polyethylene glycol 3350 17 4 g PO DAILY PRN constipat ion 08/20/23 Unknown History gram/dose oral powder (Miralax) gabapentin 400 mg capsule 400 mg PO DAILY 05/23/24 Unk nown History fluticasone propionate 50 1 spray intranasal BID nasal 06/18/24 Unknown Rx mcg/actuation nasal congestion #16 grams spray,suspension Allergy/AdvReac Type Severity Reaction Status Date / Time grass pollen Allergy runny nose Verified 03/25/25 09:19 Family History Father Diabetes ALYSSA (obstructive sleep apnea) Surgical History Hx of colonoscopy Hx of LASIK Hx of oral surgery Hx of right cataract extraction Hx of left cataract extraction Hx of appendectomy Social History household members: none current occupational status: retired Smoking Status: Never smoker second hand exposure: No alcohol intake: current alcohol intake frequency: a few times a week details: stopped drinking one year ago substance use type: does not use what type of physical activity do you participate in: walking and bicycling anam/gnosticism: Adventist ROS ROS ED Constitutional Constitutional ED: Denies chills or fever(s) Eyes Eyes: Denies change in vision or diplopia ENT ENT ED: Denies rhinorrhea or sore throat Cardiovascular Cardiovascular: Denies chest pain or palpitations Respiratory/Chest Respiratory/Chest: Denies cough or dyspnea Gastrointestinal Gastrointestinal: Denies abdominal pain, diarrhea, nausea or vomiting Genitourinary Genitourinary ED: Denies dysuria or hematuria Musculoskeletal Musculoskeletal: Denies back pain or neck pain Integumentary Denies abscess or rash Neurologic Neurologic: Reports headache(s) and other Details: Slurred speech yesterday somewhere between 10 and 30 seconds x 1. Denies thunderclap headache, cannot recall details of the onset. ; Denies paresthesias or weakness Psychiatric Psychiatric: Denies anxiety or suicidal thoughts EXAM Physical Exam Const Vital Signs: 03/25/25 09:18 03/25/25 09:38 03/25/25 09:38 Temperature 97.1 F L Temperature Source Oral Pulse Rate 61 53 L Respiratory Rate 14 14 Blood Pressure 135/76 H 121/68 H Blood Pressure Mean 95 85 Pulse Ox 98 100 Oxygen Delivery Method Room Air Room Air Room Air 03/25/25 10:18 03/25/25 11:09 Temperature Temperature Source Pulse Rate 52 L 50 L Respiratory Rate 18 16 Blood Pressure 131/68 H 122/60 H Blood Pressure Mean 89 80 Pulse Ox 100 100 Oxygen Delivery Method Room Air Room Air Positive well nourished and well developed General Appearance ED: well developed and NAD HEENT Reports moist mucous membranes normocephalic and atraumatic Eyes PERRL and EOMs intact bilaterally Neck full ROM and supple Resp normal respiratory effort and clear to auscultation bilaterally Cardio regular rate, regular rhythm and no murmurs GI non-tender and non-distended Auscultation: normoactive bowel sounds Palpation: soft Back/Spine no CVA tenderness General Back: other FROM Extremity normal to inspection General Extremety ED: Negative for edema, pulses abnormal or tenderness General Extremity: Negative for edema or pulses abnormal Neuro CN's II-XII intact bilaterally and no sensory deficits noted Neuro Narrative: Oriented x 3, initially thought it was April but then when told that is incorrect, he states the correct month and day and date. Normal gait. Sensorium / Orientation: awake and alert Coordination / Balance: [id number] test normal, [id number] test normal and Romberg test negative Speech: speech normal Gait (Neuro): normal gait Motor Exam: strength 5/5 throughout Skin no rashes or lesions noted and no wounds NIHSS NIHSS Initial: 1a Level of Consciousness: 0 1b LOC Questions (Score 2 if aphasic/stupor): 1 1c LOC Commands (Only score 1st attempt): 0 2 Best Gaze (If aphasic, use reflexive mvmts.): 0 3 Visual: 0 4 Facial Palsy: 0 5 Motor Arm Right (UN = amputation/fusion): 0 5 Motor Arm Left: 0 6 Motor Leg Right: 0 6 Motor Leg Left: 0 7 Limb ataxia (Only + if out of proportion): 0 8 Sensory (Aphasia/stupor=0 or 1, coma=2): 0 9 Best Language: 0 10 Dysarthria (mute, coma=2, intubated=UN): 0 11 Extinction and Inattention (only scored if +): 0 Total Score: 1 MDM MDM MDM Narrative Medical decision making narrative: Patient's vital signs are normal. On recheck his blood pressure is 122/60, he is doing well. He was given aspirin and Tylenol after seen his head CT, which home interpretation shows no hemorrhage. Radiology in agreement. Furthermore we perform CT angiography of the head and neck, which on my interpretation shows nothing acute. Radiology was in agreement. The labs are unremarkable. He did well in the ER with no other adverse events, he is ambulatory without difficulty and talking normally. I do not have enough information to discern whether this could have been a TIA or not. Certainly this could have been a primary headache syndrome which it appears to be right now. No stroke alert was deemed indicated given that he had seconds worth of neurologic symptoms that were nonspecific and have not recurred and are currently not present. He states he took 10 mg of something yesterday but has no idea what it is. At this time I think he can go home and follow-up with his doctor after the weekend, I advised him to take a baby aspirin every day until then as a precaution. He is comfortable with that plan. Lab Data Attestation: I reviewed the patient's lab results. Labs: Laboratory Results - last 24 hr 03/25/25 09:40 WBC 5.8 RBC 4.11 L Hgb 13.4 Hct 39.2 L MCV 95.4 H MCH 32.6 H MCHC 34.2 RDW Std Deviation 48.8 H RDW Coeff of Beatrice 13.7 Plt Count 209 MPV 11.1 Immature Gran % (Auto) 0.200 Neut % (Auto) 68.4 Lymph % (Auto) 23.5 [place] % (Auto) 5.2 Eos % (Auto) 2.4 Baso % (Auto) 0.3 Absolute Neuts (auto) 4.0 Absolute Lymphs (auto) 1.36 Nucleated RBC % 0 Sodium 140 Potassium 4.1 Chloride 106 Carbon Dioxide 21.6 Anion Gap 13 BUN 17 Creatinine 1.07 Estim Creat Clear Calc 69.40 Est GFR (MDRD) Non-Af 75 BUN/Creatinine Ratio 15.6 Glucose 100 H Calcium 9.4 Troponin T High Sens 14 Radiography Diagnostic Testing: Clinical Impression(s) from Imaging Studies Brain CT 03/25/25 09:38 IMPRESSION: No acute intracranial abnormalities. Reading Location: [facility] Head/Neck CTA 03/25/25 09:39 IMPRESSION: No hemodynamically significant stenosis in the head and neck. Reading Location: [facility] Discharge Plan Triage Chief Complaint: Headache ED Provider: Lenny Olivia Dx/Rx/DC Orders Clinical Impression: Acute headache, Dysarthria Instructions: Self-Care for Headaches Prescriptions: No Action omega-3 fatty acids-fish oil [Fish Oil] 360-1,200 mg capsule 1 cap PO DAILY polyethylene glycol 3350 [Miralax] 17 gram/dose powder 4 g PO DAILY PRN (Reason: constipation) multivitamin [Daily Multi-Vitamin] Tablet 1 tab PO DAILY [id number] 100 mg-150 mg- 50 mg-150 mg capsule 1 cap PO DAILY fluticasone propionate 50 mcg/actuation spray,suspension 1 spray intranasal BID Qty: 16 0RF Rx Instructions: administer into each nostril gabapentin 400 mg capsule 400 mg PO DAILY Primary Care Provider: YADY CORONEL Referrals: YADY CORONEL, [employer] [employer] [employer] [employer] [Primary Care Provider] - 3-5 Days if not improving Activity Restrictions/Additional Instructions: Take aspirin 81 mg (baby aspirin) once daily until you follow-up with your primary care provider; you do not need to take it today 03/25 since you received it in the emergency department. Print Language: Lao Disposition Disposition: Home, Self Care Stroke Documentation Questions Stroke Team Activated: No (sx resolved) Was Patient considered for Endovascular Intervention?: No-CTA negative, determined not to be an endovascular candidate IV Thrombolytic Administered: No (sx resolved)
[2025-03-25 10:18] VITALS: BP 131/68; PULSE 52; RESP 18; O2SAT 100
[2025-03-25 11:09] VITALS: BP 122/60; PULSE 50; RESP 16; O2SAT 100
[2025-03-25 11:34] VITALS: BP 122/60; PULSE 50; RESP 16; TEMP 36.6; O2SAT 100
== END 2025-03-25 11:34 | disposition home or self-care (01) ==
PROVIDERS: Emergency Provider Emergency Medicine; PCP Nurse Practitioner Family; Visit Provider Emergency Medicine
DX: R47.1 Dysarthria and anarthria (principal); F03.90 Unspecified dementia, unspecified severity, without behavioral disturbance, psychotic disturbance, mood disturbance, and anxiety; J44.9 Chronic obstructive pulmonary disease, unspecified; R51.9 Headache, unspecified; Z79.899 Other long term (current) drug therapy; Z87.891 Personal history of nicotine dependence
CPT/HCPCS: 70450; 70496; 70498; 80048; 84484; 85025; 93005; 99284; Q9967; A4216

== ENCOUNTER 2025-05-12 00:10 | Emergency (ER) | payer MEDICARE, BC, SELFPAY ==
[2025-05-12 00:11] VITALS: BP 153/72; PULSE 59; RESP 16; TEMP 37.1; O2SAT 100; BMI 26.6
--- NOTE | 2025-05-12 00:53 | ED.VIS.DENTA ---
HPI History of Present Illness Chief Complaint: Dental Narrative Narrative: Patient is a 69-year-old male with past medical history of anxiety, COPD, neuropathy, Raynaud's disease who presents to the emergency department the chief complaint of dental pain. He states he has been having pain for approximately 8 to 9 days now and states that he has not called a dentist yet. He states that he had been trying to place a vinegar on the areas that have been bothering him. [facility] Medical History Wears glasses Bone spur of foot Loss of hearing Anxiety Marijuana use Arthritis Syncope Heartburn Former smoker COPD (chronic obstructive pulmonary disease) CPAP (continuous positive airway pressure) dependence Leg cramps History of edema History of pain when walking Raynaud disease Neuropathy Home Medications ?Medication ?Instructions ?Recorded ?Last Taken ?Type multivitamin (Daily Multi-Vitamin 1 tab PO DAILY 06/07/23 09/05/23 History tablet) turmeric 100 mg-carlos 150 1 cap PO DAILY 06/07/23 09/05/23 History mg-olive 50 mg-oreg 150 mg-capryl capsule omega-3 fatty acids-fish oil 360 1 cap PO DAILY 08/20/23 09/05/23 History mg-1,200 mg capsule (Fish Oil) polyethylene glycol 3350 17 4 g PO DAILY PRN constipation 08/20/23 Unknown History gram/dose oral powder (Miralax) gabapentin 400 mg capsule 400 mg PO DAILY 05/23/24 Unknown History fluticasone propionate 50 1 spray intranasal BID nasal 06/18/24 Unknown Rx mcg/actuation nasal congestion #16 grams spray,suspension clindamycin HCl 300 mg capsule 300 mg PO BID 5 days #10 caps 05/12/25 Unknown Rx (Cleocin HCl) Allergy/AdvReac Type Severity Reaction Status Date / Time grass pollen Allergy runny nose Verified 05/12/25 00:11 Family History Father Diabetes ALYSSA (obstructive sleep apnea) Surgical History Hx of colonoscopy Hx of LASIK Hx of oral surgery Hx of right cataract extraction Hx of left cataract extraction Hx of appendectomy Social History household members: none current occupational status: retired Smoking Status: Never smoker second hand exposure: No alcohol intake: current alcohol intake frequency: a few times a week details: stopped drinking one year ago substance use type: does not use what type of physical activity do you participate in: walking and bicycling anam/caodaism: Hoahaoism ROS ROS ED ROS Narrative Constitutional: Denies any fevers, chills Eyes, ears, nose, throat: Complains of dental pain as noted above denies any difficulty swallowing Neurological: Denies numbness, weakness, tingling Musculoskeletal: Denies back pain Skin: Denies any rashes or lesions EXAM Physical Exam Narrative Exam Narrative: General: Patient is lying in bed rest comfortably did not appear to be in acute distress Head: Atraumatic, normocephalic Eyes, ears, nose and throat: Patient has evidence of a canker sore on the back right lower gumline he also has evidence of a canker sore on the left upper gumline PERRL bilaterally, EOMI bilaterally, no conjunctival injection noted, patient had tenderness to palpation over the gumline near tooth 21 no evidence of abscess. No sublingual swelling Neck: Soft, supple, trachea midline, no concern for Krishan's angina Cardiovascular: Patient bradycardic with a regular rhythm Neurological: Patient follow commands knew that he was at [facility] year is 2024 Skin: Warm, dry, intact no rashes or lesions noted Const Vital Signs: 05/12/25 00:11 Temperature 98.8 F Temperature Source Oral Pulse Rate 59 L Respiratory Rate 16 Blood Pressure 153/72 H Blood Pressure Mean 99 Pulse Ox 100 Oxygen Delivery Method Room Air MDM MDM MDM Narrative Medical decision making narrative: Patient is a 69-year-old male who presented to the emergency department the chief complaint of dental pain that has been going on for approximately 8 to 9 days. On the differential diagnose includes but not limited to dental carry, canker sore, parable abscess. Clinically the patient has evidence of canker sores as noted above as well as questionable gum infection but no evidence of periapical abscess. Patient be given first dose of clindamycin here in the emergency department he is advised to follow-up with his dentist and return with worsening symptoms or concerns. He is agreeable this plan all question concerns answered is discharged home in stable condition Discharge Plan Triage Chief Complaint: Dental ED Provider: Yony Gonzales Dx/Rx/DC Orders Clinical Impression: Pain, dental, Canker sore Prescriptions: New clindamycin HCl [Cleocin HCl] 300 mg capsule 300 mg PO BID 5 Days Qty: 10 0RF No Action omega-3 fatty acids-fish oil [Fish Oil] 360-1,200 mg capsule 1 cap PO DAILY polyethylene glycol 3350 [Miralax] 17 gram/dose powder 4 g PO DAILY PRN (Reason: constipation) multivitamin [Daily Multi-Vitamin] Tablet 1 tab PO DAILY csftopxw-ycjg-mnqut-oreg-capry 100 mg-150 mg- 50 mg-150 mg capsule 1 cap PO DAILY fluticasone propionate 50 mcg/actuation spray,suspension 1 spray intranasal BID Qty: 16 0RF Rx Instructions: administer into each nostril gabapentin 400 mg capsule 400 mg PO DAILY Primary Care Provider: YADY CORONEL Referrals: YADY CORONEL NP-C [Primary Care Provider, Family Practice] Activity Restrictions/Additional Instructions: Take antibiotics as prescribed. Follow-up with your dentist and your primary care physician. Return with worsening symptoms or other concerns. You do have evidence of canker sores clinically on exam as well causing pain. Print Language: Maltese Disposition Disposition: Home, Self Care
[2025-05-12 00:58] VITALS: BP 115/79; PULSE 59; RESP 16; TEMP 36.9; O2SAT 99
== END 2025-05-12 01:03 | disposition home or self-care (01) ==
PROVIDERS: Emergency Provider Emergency Medicine; PCP Nurse Practitioner Family; Visit Provider Emergency Medicine
DX: K08.89 Other specified disorders of teeth and supporting structures (principal); J44.9 Chronic obstructive pulmonary disease, unspecified; F41.9 Anxiety disorder, unspecified; Z87.891 Personal history of nicotine dependence; K12.0 Recurrent oral aphthae; Z79.51 Long term (current) use of inhaled steroids; Z98.41 Cataract extraction status, right eye; Z98.42 Cataract extraction status, left eye; Z90.49 Acquired absence of other specified parts of digestive tract
CPT/HCPCS: 99282